=== PATIENT | female | born 1980 | race Caucasian/White ===

== ENCOUNTER → 2017-05-29 | Outpatient (CLI) | payer OTHER ==
[~2017-05-29] MED LIST: ACHD5005 PO; CEPH-38 PO; CETI10CA PO; CPH500CIP; CYCL10TA9 PO; DOCU-143 PO; HYDR-3454 PO; HYDR-3583 PO; HYDR1TAB PO; HYDR1TAB8 OP; IBUP-30 PO; IBUP-65; IBUP200C75 PO; LEVO5TAB2 PO; METR500T PO; ONDA-42 SL; OXYC-12 PO; OXYC-281; PANT40TA2 PO; POTA20TA7 PO; PRM25T PO; SUCR1TAB36 PO; SULF1TAB38 PO
--- NOTE | 2017-05-29 15:39 | Diagnostic Imaging Report ---
INDICATION: scar with rash. Patient opted for transvaginal imaging only. FINDINGS: The uterus is absent. The right ovary measures 2.6 x 2.2 x 2.2 cm. The left ovary measures 3.0 x 2.8 x 2.1 cm. There are multiple small follicular cysts throughout both ovaries. There is a complex cyst in the left ovary with thick wall measuring 1.2 cm which likely represents involuting hemorrhagic cyst. There is normal blood flow to both ovaries. There is no free fluid. IMPRESSION: 1. Probable involuting cyst within the left ovary measuring 1.2 cm, as described. No other abnormalities noted. Dictated by: Dictated on workstation # [id number]
== END ==
LOC: RAD 14:01
PROVIDERS: ATTEND Family Medicine
DX: N83.292 Other ovarian cyst, left side (principal)
CPT/HCPCS: 76830

== ENCOUNTER 2019-01-13 21:18 | Emergency (ER) | payer MEDICAID, OTHER ==
[~2019-01-13] VITALS: Ht 152.4 cm; Wt 87.1 kg
[~2019-01-13 21:18] MED LIST changes: +IBUP-2185 PO; -IBUP200C75 PO
--- OUTSIDE RECORDS SUMMARY | 2019-01-13 21:46 | XMS REPORT ---
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 88188044 Problem Elevated lymphocytes D72.820 Active 95665047 Problem Prediabetes R73.03 Active 151002527 Problem Chronic reflux esophagitis K21.0 Active 628951005 Problem Chronic fatigue R53.82 Active 90792897 Problem BMI 35.0-35.9,adult Z68.35 Active 522189296 Problem Major depressive disorder, recurrent episode, moderate F33.1 Active 155626550 Problem Seasonal allergic rhinitis due to pollen J30.1 Active 34664976 Problem WILMA (generalized anxiety disorder) F41.1 Active 07929436 Problem Severe episode of recurrent major depressive disorder, without 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 Active 83034195 Problem Carpal tunnel syndrome of right wrist G56.01 Active 14795279 Problem PTSD (post-traumatic stress disorder) F43.10 Active 18729580 ALLERGIES No Information ENCOUNTERS Encounter Location Date Diagnosis [facility] [id number] [place] [address] 76774- 4464 Nov, [facility] [address] [address] Sep, [facility] [id number] [place] [address] 65948- 3045 Aug, [facility] [id number] [place] [address] 61244- 6954 Aug, [facility] [id number] [place] [address] 26082- 9716 Aug, [place] [address] [address] Aug, Severe episode of recurrent major depressive disorder, without 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 ; WILMA (generalized anxiety disorder) F41.1 and PTSD (post-traumatic stress disorder) F43.10 [facility] [address] [address] Jul, Severe episode of recurrent major depressive disorder, without 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 ; WILMA (generalized anxiety disorder) F41.1 and PTSD (post-traumatic stress disorder) F43.10 [facility] [facility] [id number] [place] [address] 80273- 4736 Jun, [place] [id number] [place] [address] 70712- 6632 Jun, Severe episode of recurrent major depressive disorder, without 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 ; WILMA (generalized anxiety disorder) F41.1 and PTSD (post-traumatic stress disorder) F43.10 [place] [id number] [place] [address] 28459- 1146 Jun, Encounter to establish care Z76.89 ; Diarrhea, unspecified type R19.7 ; Carpal tunnel syndrome of right wrist G56.01 ; Tobacco use Z72.0 ; Major depressive disorder, recurrent episode, moderate F33.1 and Seasonal allergic rhinitis due to pollen J30.1 [facility] [id number] [place] [address] 44837- 7351 Jun, Severe episode of recurrent major depressive disorder, without 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 ; WILMA (generalized anxiety disorder) F41.1 and PTSD (post-traumatic stress disorder) F43.10 [facility] [id number] [place] [address] 12467- 3871 May, Severe episode of recurrent major depressive disorder, without 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 ; WILMA (generalized anxiety disorder) F41.1 and PTSD (post-traumatic stress disorder) F43.10 [facility] [id number] [place] [address] 37608- 8319 May, Scalp cyst L72.9 [facility] [id number] [place] [address] 68089- 7781 May, Severe episode of recurrent major depressive disorder, without 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 ; WILMA (generalized anxiety disorder) F41.1 and PTSD (post-traumatic stress disorder) F43.10 [facility] [id number] [place] [address] 60003- 0767 Apr, Severe episode of recurrent major depressive disorder, without 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 ; WILMA (generalized anxiety disorder) F41.1 and PTSD (post-traumatic stress disorder) F43.10 [facility] [id number] [place] [address] 42569- 3876 March, Severe episode of recurrent major depressive disorder, without 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 ; WILMA (generalized anxiety disorder) F41.1 and PTSD (post-traumatic stress disorder) F43.10 [facility] [id number] [place] [address] 94147- 2965 March, Severe episode of recurrent major depressive disorder, without 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 ; WILMA (generalized anxiety disorder) F41.1 and PTSD (post-traumatic stress disorder) F43.10 [facility] [id number] [place] [address] 57977- 0948 March, [place] [id number] [place] [address] 93411- 2976 Jan, Severe episode of recurrent major depressive disorder, without 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 ; WILMA (generalized anxiety disorder) F41.1 and PTSD (post-traumatic stress disorder) F43.10 [place] [id number] [place] [address] 82002- 4784 Jan, Carpal tunnel syndrome of right wrist G56.01 [place] [id number] [place] [address] 75428- 6735 Jan, Severe episode of recurrent major depressive disorder, without 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 ; WILMA (generalized anxiety disorder) F41.1 and PTSD (post-traumatic stress disorder) F43.10 [facility] [id number] [place] [address] 92022- 7961 Dec, Severe episode of recurrent major depressive disorder, without 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 ; WILMA (generalized anxiety disorder) F41.1 and PTSD (post-traumatic stress disorder) F43.10 [place] [address] 17830- 3979 Dec, Severe episode of recurrent major depressive disorder, without 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 ; WILMA (generalized anxiety disorder) F41.1 and PTSD (post-traumatic stress disorder) F43.10 [facility] [id number] [place] [address] 83694- 4210 Dec, Severe episode of recurrent major depressive disorder, without 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 ; WILMA (generalized anxiety disorder) F41.1 and PTSD (post-traumatic stress disorder) F43.10 [place] [id number] [place] [address] 72335- 2726 Dec, Severe episode of recurrent major depressive disorder, without 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 [facility] [id number] [place] [id number] Dec, Severe episode of recurrent major depressive disorder, without 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 ; WILMA (generalized anxiety disorder) F41.1 and PTSD (post-traumatic stress disorder) F43.10 [facility] [id number] [place] [address] 42443- 4659 Dec, Severe episode of recurrent major depressive disorder, without 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 ; WILMA (generalized anxiety disorder) F41.1 and PTSD (post-traumatic stress disorder) F43.10 [place] [id number] [place] [address] 87721- 9219 Dec, Severe episode of recurrent major depressive disorder, without 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 and Anxiety state, unspecified F41.1 [facility] [address] [place] [address]- 3115 14 Dec, 2017 Severe episode of recurrent major depressive disorder, without 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 and Anxiety state, unspecified F41.1 [facility] [facility] [id number] [place] [address] [address] Nov, Depression, major, recurrent, moderate F33.1 and Anxiety state, unspecified F41.1 [place] [address] 07459- 9642 Nov, Depression, major, recurrent, moderate F33.1 and Anxiety state, unspecified F41.1 [facility] [address] 262387- 6832 Oct, Depression, major, recurrent, moderate F33.1 and Anxiety state, unspecified F41.1 [place] [address] 24913- 6114 Oct, Depression, major, recurrent, moderate F33.1 and Post- cholecystectomy syndrome K91.5 [place] [id number] [place] [address] 91101- 4389 Oct, Depression, major, recurrent, moderate F33.1 and Anxiety state, unspecified F41.1 [facility] [id number] [place] [address] 56006- 4344 30 Sep, 2017 Depression, major, recurrent, moderate F33.1 and Anxiety state, unspecified F41.1 [place] [id number] [place] [address] 74319- 3261 Sep, Depression, major, recurrent, moderate F33.1 and Anxiety state, unspecified F41.1 [place] [address] 20894- 6934 09 Sep, 2017 Depression, major, recurrent, moderate F33.1 and Anxiety state, unspecified F41.1 [place] [address] 45776- 3760 Sep, Diarrhea, unspecified type R19.7 [place] [id number] [place] [address] 93584- 1657 Aug, Depression, major, recurrent, moderate F33.1 and Anxiety state, unspecified F41.1 [place] [id number] [place] [address] Aug, Depression, major, recurrent, moderate F33.1 and Anxiety state, unspecified F41.1 [place] [id number] [place] [address] 4771 Jul, Depression, major, recurrent, moderate F33.1 and Anxiety state, unspecified F41.1 [place] [id number] [place] [address]557 Jun, Depression, major, recurrent, moderate F33.1 and Anxiety state, unspecified F41.1 [place] [address] 38820- 2582 Jun, Generalized abdominal pain R10.84 ; Diarrhea, unspecified type R19.7 ; Acute cystitis without hematuria N30.00 ; Abdominal bloating R14.0 and Elevated blood pressure reading R03.0 [place] [id number] [place] [address] 28659- 7577 Jun, Depression, major, recurrent, moderate F33.1 and Anxiety state, unspecified F41.1 [place] [id number] [place] [address] 6428 May, Depression, major, recurrent, moderate F33.1 and Anxiety state, unspecified F41.1 [place] [id number] [place] [address] 44467- 5277 May, Elevated lymphocytes D72.820 [place] [id number] [place] [address] 64597- 5513 May, Elevated lymphocytes D72.820 [place] [id number] [place] [address] 2546 May, BMI 35.0-35.9,adult Z68.35 ; Other fatigue R53.83 ; Pelvic pain R10.2 ; Tobacco use Z72.0 and Chronic reflux esophagitis K21.0 [place] [id number] [place] [address] 66695- 4096 Apr, [place] [id number] [place] [address] 15515- 5647 Apr, Depression, major, recurrent, moderate F33.1 and Anxiety state, unspecified F41.1 [place] [id number] [place] [address] 52994- 6838 Apr, Depression, major, recurrent, moderate F33.1 and Anxiety state, unspecified F41.1 [place] [id number] [place] [address] 41277- 2132 Apr, [place] [id number] [place] [address] 46945- 9238 March, Major depressive disorder, recurrent episode, mild F33.0 and Anxiety state, unspecified F41.1 [facility] [id number] [place] [address] 46550 -6113 March, Sore throat J02.9 and Submandibular lymphadenopathy R59.0 [place] [id number] [place] [address] 25612- 3558 Dec, Major depressive disorder, recurrent episode, mild F33.0 and Anxiety state, unspecified F41.1 [place] [id number] [place] [address] 04801- 1217 Dec, Major depressive disorder, recurrent episode, mild F33.0 and Anxiety state, unspecified F41.1 [place] [id number] [place] [address] 06400- 5434 Dec, Major depressive disorder, recurrent episode, mild F33.0 and Anxiety state, unspecified F41.1 [facility] [address] [address]- 9982 Sep, Major depressive disorder, recurrent episode, mild F33.0 and Anxiety state, unspecified F41.1 [place] [id number] [place] [address] 26968- 2227 Sep, Major depressive disorder, recurrent episode, moderate F33.1 and Anxiety state, unspecified F41.1 [place] [id number] [place] [address] 09299- 9213 Aug, Major depressive disorder, recurrent episode, moderate F33.1 and Anxiety state, unspecified F41.1 [place] [id number] [place] [address] 71951- 6682 Aug, Major depressive disorder, recurrent episode, moderate F33.1 and Anxiety state, unspecified F41.1 [place] [id number] [place] [address] 39487- 1323 Jul, Major depressive disorder, recurrent episode, moderate F33.1 and Anxiety state, unspecified F41.1 [place] [id number] [place] [address] 14134- 7714 Jul, Major depressive disorder, recurrent episode, moderate F33.1 and Anxiety state, unspecified F41.1 [place] [id number] [place] [address] 51271- 8592 Jun, Major depressive disorder, recurrent episode, moderate F33.1 and Anxiety state, unspecified F41.1 [place] [id number] [place] [address] 55132- 4509 Jun, Major depressive disorder, recurrent episode, moderate F33.1 and Anxiety state, unspecified F41.1 [place] [id number] [place] [address] 47705- 3630 May, Major depressive disorder, recurrent episode, moderate F33.1 and Anxiety state, unspecified F41.1 [place] [id number] [place] [address] 34429- 5698 Apr, Major depressive disorder, recurrent episode, moderate F33.1 and Anxiety state, unspecified F41.1 [place] [id number] [place] [address] 427366- 2200 Apr, Major depressive disorder, recurrent episode, moderate F33.1 and Anxiety state, unspecified F41.1 [place] [id number] [place] [address] 37339- 5275 Dec, Major depressive disorder, recurrent episode, moderate F33.1 and Anxiety state, unspecified F41.1 [place] [id number] [place] [address] 81371- 2421 Dec, Major depressive disorder, recurrent episode, moderate F33.1 and Anxiety state, unspecified F41.1 [facility] [id number] [place] [address] 77729 -7859 Dec, Pharyngitis J02.9 and Acute frontal sinusitis J01.10 [place] [id number] [place] [address] 61785- 9895 Nov, Bilateral occipital neuralgia M54.81 and Neck muscle spasm M62.838 [place] [id number] [place] [address] 07034- 6078 Nov, Major depressive disorder, recurrent episode, moderate F33.1 and Anxiety state, unspecified F41.1 [place] [id number] [place] [address] 79935- 9053 Sep, Major depressive disorder, recurrent episode, moderate F33.1 and Anxiety state, unspecified F41.1 [place] [id number] [place] [address] 29195- 2856 Aug, Major depressive disorder, recurrent episode, moderate F33.1 and Anxiety state, unspecified F41.1 [place] [id number] [place] [address] 60140- 7630 Jul, Abdominal pain 789.00 ; Hematochezia 578.1 and Weight loss 783.21 [facility] [address], [place] [address]- 5234 May, [facility] [address] [address]- 3036 March, [facility] [address], [place] [address]- 8230 March, [facility] [address] [facility] [id number] [place] [address] 62209- 3677 Jan, [facility] [id number] [address]- 4851 Jan, [facility] [id number] [place] [address] 26377- 9959 Dec, [facility] [address] [address]- 2701 Dec, [facility] [address], [place] [address]- 3432 Dec, 2014 [facility] [address] [address]- 6157 Dec, 2014 [facility] [address], [place] [address]- 7381 Dec, 2014 [facility] [address] [address]- 6417 Dec, 2014 [facility] [id number] [address]- 2031 Jul, [facility] [place] [facility] [address], [place] [address]- 1056 Jul, [facility] [place] [facility] [address], [place] [address]- 7276 Jul, [facility] [address], [place] [address]- 5399 Jul, [facility] [place] [facility] [address] [id number] [place] [address]- 2546 10 Jul, 2013 [facility] [place] [facility] [address] [id number] [place] [address] 2546 Jul, 2013 [facility] [place] [facility] [address] [id number] [place] [address] 2546 Jul, 2013 [facility] [place] [facility] [address] [id number] [place] [address] 2546 Jul, 2013 [facility] [place] [facility] [address] [id number] [place] [address] 2540 Jul, 2013 [facility] [place] [facility] [address] [id number] [place] [address]- 2967 Jul, 2013 [facility] [place] [facility] [address] [id number] [place] [address]- 4278 Jul, 2013 [facility] [place] [facility] [address] [id number] [place] [address]- 9562 Jul, 2013 [facility] [place] [facility] [address] [id number] [place] [address]- 9455 May, [facility] [place] [facility] [address] [id number] [place] [address]- 2336 May, [facility] [place] [facility] [address] [id number] [place] [address]- 1434 Apr, [facility] [place] [facility] [address] [id number] [place] [address]- 1807 Apr, [facility] [place] [facility] [address] [id number] [place] [address]- 7710 Apr, [facility] [place] [facility] [address] [id number] [place] [address]- 2546 Apr, [facility] [place] [facility] [address] [id number] [place] [address]- 9395 March, [facility] [place] [facility] [address] [id number] [place] [address]- 6656 March, [facility] [place] [facility] [address] [id number] [place] [address]- 4161 Jan, [facility] [place] [facility] [address] [id number] [place] [address]- 5083 Jan, [facility] [place] [facility] [address] [id number] [place] [address]- 2439 Jan, [facility] [place] [facility] [address] [id number] [place] [address]- 7534 Jan, [facility] [place] [facility] [address] [id number] [place] [address]- 0851 Dec, [facility] [place] [facility] [address] [id number] [place] [address]- 9543 25 Dec, 2013 [facility] [place] [facility] [address] [id number] [place] [address]- 3813 18 Dec, 2013 [facility] [place] [facility] [address] [id number] [place] [address]- 9377 18 Dec, 2013 [facility] [place] [facility] [address] [id number] [place] [address]- 4433 15 Dec, 2013 [facility] [place] [facility] [address] [id number] [place] [address]- 0616 14 Dec, 2013 [facility] [place] [facility] [address] [id number] [place] [address]- 8308 13 Dec, 2013 [facility] [place] [facility] [address] [id number] [address]- 9002 13 Dec, 2013 [facility] [place] [facility] [address] [id number] [place] [address]- 8439 12 Dec, 2013 [facility] [place] [facility] [address] [id number] [place] [address]- 1657 12 Dec, 2013 [facility] [place] [facility] [address] [id number] [place] [address]- 6329 05 Dec, 2013 [facility] [place] [facility] [address] [id number] [place] [address]- 3002 Dec, [facility] [place] [facility] [address] [id number] [place] [address]- 8136 Dec, [facility] [place] [facility] [address] [id number] [place] [address]- 0356 Dec, [facility] [place] [facility] [address] [id number] [place] [address]- 6556 Dec, [facility] [place] [facility] [address] [id number] [place] [address]- 6006 Dec, [facility] [place] [facility] [address] [id number] [place] [address]- 1536 Dec, [facility] [place] [facility] [address] [id number] [place] [address]- 4076 Dec, [facility] [place] [facility] [address] [id number] [place] [address]- 3494 Nov, [facility] [place] [facility] [address] [id number] [place] [address]- 5569 Nov, [facility] [place] [facility] [address] [id number] [place] [address]- 2417 Nov, [facility] [place] [facility] [address] [id number] [place] [address]- 0717 Nov, [facility] [place] [facility] [address] [id number] [place] [address]- 0887 Nov, [facility] [place] [facility] [address] [id number] [place] [address]- 1602 Nov, [facility] [place] [facility] [address] [id number] [place] [address]- 1255 Nov, [facility] [place] [facility] [address] [id number] [place] [address] 2546 Nov, [facility] [place] [facility] [address] [id number] [place] [address]- 1289 Oct, [facility] [place] [facility] [address] [id number] [place] [address]- 1012 Oct, [facility] [place] [facility] [address] [id number] [place] [address]- 6340 Oct, [facility] [place] [facility] [address] [id number] [place] [address]- 9004 Oct, [facility] [place] [facility] [address] [id number] [place] [address]- 5968 Oct, [facility] [place] [facility] [address] [id number] [place] [address]- 1205 Oct, [facility] [place] [facility] [address] [id number] [place] [address]- 6159 Sep, [facility] [place] [facility] [address] [id number] [place] [address]- 1261 Sep, [facility] [place] [facility] [address] [id number], [place] [address]- 8994 Sep, [facility] [place] [facility] [address] [id number] [place] [address]- 9744 Sep, [facility] [place] [facility] [address] [id number], [place] [address]- 7774 Aug, [facility] [place] [facility] [address] [id number], [place] [address]- 4247 Aug, [facility] [place] [facility] [address] [id number], [place] [address]- 5169 Aug, [facility] [place] [facility] [address] [id number] [place] [address]- 2264 Aug, [facility] [place] [facility] [address] [id number], [place] [address] Jul, [facility] [place] [facility] [address] [id number], [place] [address] 05 Jul, 2013 [facility] [place] [facility] [address] [id number] [place] [address] Jun, [facility] [address] [id number] [place] [address] Jun, [facility] [address] [id number] [place] [address] Apr, [facility] [address] [id number] [place] [address] Apr, [facility] [address] [id number] [place] [address] 15 Apr, 2013 [facility] [address] [id number] [place] [address] 14 Apr, 2013 [facility] [address] [id number] [place] [address] March, [facility] [address] [id number] [place] [address] March, [facility] [address] [id number] [place] [address] March, [facility] [address] [id number] [place] [address] Jan, [facility] [address] [id number] [place] [address] Jan, [facility] [address] [id number] [place] [address] Dec, [facility] [place] [facility] [address] [id number] [place] [address] Dec, [facility] [place] [facility] [address] [id number] [place] [address] Dec, [facility] [facility] [address] [id number] [place] [address] 28 Dec, 2012 [facility] [place] [facility] [address] [id number] [place] [address] Dec, [facility] [place] [facility] [address] [id number] [place] [address] Dec, [facility] [address] [id number] [place] [address] Nov, [facility] [address] [id number] [place] [address] Nov, [facility] [address] [id number] [place] [address] Oct, [facility] [address] [id number] [place] [address] Oct, [facility] [address] [id number] [place] [address] Oct, [facility] [address] [id number] [place] [address] Oct, [facility] [address] [id number] [place] [address] Oct, [facility] [address] [id number] [place] [address] Oct, [facility] [address] [id number] [place] [address] Oct, [facility] [address] [id number] [place] [address] Oct, [facility] [address] [id number] [place] [address] Oct, [facility] [address] [id number] [place] [address] Oct, [facility] [address] [id number] [place] [address] Sep, [facility] [address] [id number] [place] [address] Sep, [facility] [facility] [address] [id number] [place] [address] Sep, [facility] [address] [id number] [place] [address] Sep, [facility] [address] [id number] [place] [address] Aug, [facility] [facility] [address] [id number] [place] [address] Aug, [facility] [address] [id number] [place] [address] Aug, [facility] [address] [id number] [place] [address] Jul, [facility] [place] [facility] [address] [id number] [place] [address] Jun, [facility] [facility] [address] [id number] [place] [address] Jun, [facility] [address] [id number] [place] [address] May, [facility] [facility] [address] [id number] [place] [address] Apr, [facility] [address] [id number] [place] [address] March, [facility] [facility] [address] [id number] [place] [address] Jan, [facility] [facility] [address] [id number] [place] [address] Dec, [facility] [facility] [address] [id number] [place] [address] Dec, [facility] [address] [id number] [place] [address] Nov, [facility] [address] [id number] [place] [address] Oct, [facility] [address] [facility] [id number], [place] [address] Oct, [facility] [address] [facility] [id number], [place] [address] Sep, [facility] [address] [facility] [id number], [place] [address] Aug, [facility] [address] [facility] [id number], [place] [address] Dec, [facility] [address] [facility] [id number], [place] [address] Oct, [facility] [address] [facility] [id number], [place] [address] Oct, [facility] [address] [facility] [id number], [place] [address] Oct, [facility] [id number], [place] [address] Jun, [facility] [address] [id number], [place] [address] Jun, [facility] [id number], [place] [address] Oct, [facility] [id number] [address] [address] Sep, [facility] [id number] [address] [address] Sep, [facility] [address] [id number], [place] [address] Sep, [facility] [id number], [place] [address] Aug, [facility] [address] [id number], [place] [address] 10 Dec, 2008 IMMUNIZATIONS No Known Immunizations SOCIAL HISTORY Never Assessed REASON FOR VISIT Update Demographics - Personal Info PLAN OF CARE VITAL SIGNS MEDICATIONS Unknown Medications RESULTS No Results PROCEDURES No Known procedures INSTRUCTIONS MEDICATIONS ADMINISTERED No Known Medications MEDICAL (GENERAL) HISTORY Type Description Date Medical History GERD Medical History anxiety Medical History depression Medical History Hx of dumping . Resolved with Wellchol Surgical History C- section x 2 Surgical History tubal ligation Surgical History hysterectomy partial. Hyst due to uncontrolled bleeding 2008 Surgical History cholecystectomy 2013 Surgical History Fibroid removal Hospitalization History inpatient treatment Mirtha SMITH 21 years old Hospitalization History surgeries
--- OUTSIDE RECORDS SUMMARY | 2019-01-13 21:46 | XMS REPORT ---
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 29601008 Problem Elevated lymphocytes D72.820 Active 19924740 Problem Prediabetes R73.03 Active 793510349 Problem Chronic reflux esophagitis K21.0 Active 301529773 Problem Chronic fatigue R53.82 Active 21571473 Problem BMI 35.0-35.9,adult Z68.35 Active 001626740 Problem Major depressive disorder, recurrent episode, moderate F33.1 Active 737778831 Problem Seasonal allergic rhinitis due to pollen J30.1 Active 15728529 Problem WILMA (generalized anxiety disorder) F41.1 Active 18159882 Problem Severe episode of recurrent major depressive disorder, without 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 Active 55609300 Problem Carpal tunnel syndrome of right wrist G56.01 Active 59517219 Problem PTSD (post-traumatic stress disorder) F43.10 Active 77320738 ALLERGIES No Information ENCOUNTERS Encounter Location Date Diagnosis [facility] [id number] [place] [address] 05417- 2475 Nov, [facility] [address], [place] [address] 77[address] Sep, [facility] [id number] [place] [address] 17102- 4124 Aug, [facility] [id number] [place] [address] 18743- 2641 Aug, [facility] [id number] [place] [address] 44448- 1945 Aug, [facility] [address] [address]67 Aug, Severe episode of recurrent major depressive disorder, without 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 ; WILMA (generalized anxiety disorder) F41.1 and PTSD (post-traumatic stress disorder) F43.10 [facility] [address], [place] [address] 288[address] Jul, Severe episode of recurrent major depressive disorder, without 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 ; WILMA (generalized anxiety disorder) F41.1 and PTSD (post-traumatic stress disorder) F43.10 [facility] [id number] [place] [address] 48048- 8558 Jun, [facility] [id number] [place] [address] 13604- 7991 Jun, Severe episode of recurrent major depressive disorder, without 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 ; WILMA (generalized anxiety disorder) F41.1 and PTSD (post-traumatic stress disorder) F43.10 [facility] [id number] [place] [address] 96699- 5857 Jun, Encounter to establish care Z76.89 ; Diarrhea, unspecified type R19.7 ; Carpal tunnel syndrome of right wrist G56.01 ; Tobacco use Z72.0 ; Major depressive disorder, recurrent episode, moderate F33.1 and Seasonal allergic rhinitis due to pollen J30.1 [facility] [id number] [place] [address] 95195- 9869 Jun, Severe episode of recurrent major depressive disorder, without 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 ; WILMA (generalized anxiety disorder) F41.1 and PTSD (post-traumatic stress disorder) F43.10 [facility] [id number] [place] [address] 46293- 0153 May, Severe episode of recurrent major depressive disorder, without 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 ; WILMA (generalized anxiety disorder) F41.1 and PTSD (post-traumatic stress disorder) F43.10 [facility] [id number] [place] [address] 00872- 2019 May, Scalp cyst L72.9 [facility] [id number] [place] [address] 23151- 7129 May, Severe episode of recurrent major depressive disorder, without 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 ; WILMA (generalized anxiety disorder) F41.1 and PTSD (post-traumatic stress disorder) F43.10 [facility] [id number] [place] [address] 68823- 6054 Apr, Severe episode of recurrent major depressive disorder, without 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 ; WILMA (generalized anxiety disorder) F41.1 and PTSD (post-traumatic stress disorder) F43.10 [facility] [id number] [place] [address] 22368- 9223 March, Severe episode of recurrent major depressive disorder, without 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 ; WILMA (generalized anxiety disorder) F41.1 and PTSD (post-traumatic stress disorder) F43.10 [facility] [id number] [place] [address] 67159- 3872 March, Severe episode of recurrent major depressive disorder, without 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 ; WILMA (generalized anxiety disorder) F41.1 and PTSD (post-traumatic stress disorder) F43.10 [facility] [id number] [place] [address] 75927- 1894 March, [facility] [id number] [place] [address] 41384- 6400 Jan, Severe episode of recurrent major depressive disorder, without 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 ; WILMA (generalized anxiety disorder) F41.1 and PTSD (post-traumatic stress disorder) F43.10 [facility] [id number] [place] [address] 77256- 5399 Jan, Carpal tunnel syndrome of right wrist G56.01 [facility] [id number] [place] [address] 69515- 7419 Jan, Severe episode of recurrent major depressive disorder, without 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 ; WILMA (generalized anxiety disorder) F41.1 and PTSD (post-traumatic stress disorder) F43.10 [facility] [id number] [place] [address] 44182- 5414 Dec, Severe episode of recurrent major depressive disorder, without 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 ; WILMA (generalized anxiety disorder) F41.1 and PTSD (post-traumatic stress disorder) F43.10 [facility] [address] 09447- 7272 Dec, Severe episode of recurrent major depressive disorder, without 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 ; WILMA (generalized anxiety disorder) F41.1 and PTSD (post-traumatic stress disorder) F43.10 [facility] [id number] [place] [address] 05942- 9394 Dec, Severe episode of recurrent major depressive disorder, without 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 ; WILMA (generalized anxiety disorder) F41.1 and PTSD (post-traumatic stress disorder) F43.10 [facility] [id number] [place] [address] 74990- 7397 Dec, Severe episode of recurrent major depressive disorder, without 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 [facility] [id number] [place] [address] 4778 Dec, Severe episode of recurrent major depressive disorder, without 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 ; WILMA (generalized anxiety disorder) F41.1 and PTSD (post-traumatic stress disorder) F43.10 [facility] [id number] [place] [address] 99258- 1191 Dec, Severe episode of recurrent major depressive disorder, without 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 ; WILMA (generalized anxiety disorder) F41.1 and PTSD (post-traumatic stress disorder) F43.10 [facility] [id number] [place] [address] 65483- 7932 Dec, Severe episode of recurrent major depressive disorder, without 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 and Anxiety state, unspecified F41.1 [facility] [address] [place] [address]- 2344 14 Dec, 2017 Severe episode of recurrent major depressive disorder, without 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 and Anxiety state, unspecified F41.1 [facility] [id number] [place] [address] Nov, Depression, major, recurrent, moderate F33.1 and Anxiety state, unspecified F41.1 [facility] [address] 11311- 3031 Nov, Depression, major, recurrent, moderate F33.1 and Anxiety state, unspecified F41.1 [facility] [address] 059842- 2551 Oct, Depression, major, recurrent, moderate F33.1 and Anxiety state, unspecified F41.1 [facility] [address] 36310- 0858 Oct, Depression, major, recurrent, moderate F33.1 and Post- cholecystectomy syndrome K91.5 [facility] [id number] [place] [address] 96171- 7750 Oct, Depression, major, recurrent, moderate F33.1 and Anxiety state, unspecified F41.1 [facility] [id number] [place] [address] 19501- 8225 30 Sep, 2017 Depression, major, recurrent, moderate F33.1 and Anxiety state, unspecified F41.1 [facility] [id number] [place] [address] 93427- 0254 Sep, Depression, major, recurrent, moderate F33.1 and Anxiety state, unspecified F41.1 [facility] [address] 96749- 4299 09 Sep, 2017 Depression, major, recurrent, moderate F33.1 and Anxiety state, unspecified F41.1 [facility] [address] 30345- 1744 Sep, Diarrhea, unspecified type R19.7 [facility] [id number] [place] [address] 92468- 1375 Aug, Depression, major, recurrent, moderate F33.1 and Anxiety state, unspecified F41.1 [facility] [id number] [place] [address]- 1733 Aug, Depression, major, recurrent, moderate F33.1 and Anxiety state, unspecified F41.1 [facility] [id number] [place] [address] 6343 Jul, Depression, major, recurrent, moderate F33.1 and Anxiety state, unspecified F41.1 [facility] [id number] [place] [address] 3075 Jun, Depression, major, recurrent, moderate F33.1 and Anxiety state, unspecified F41.1 [facility] [address] 31708- 1519 Jun, Generalized abdominal pain R10.84 ; Diarrhea, unspecified type R19.7 ; Acute cystitis without hematuria N30.00 ; Abdominal bloating R14.0 and Elevated blood pressure reading R03.0 [facility] [id number] [place] [address] 92103- 7322 Jun, Depression, major, recurrent, moderate F33.1 and Anxiety state, unspecified F41.1 [facility] [id number] [place] [address]- 1619 May, Depression, major, recurrent, moderate F33.1 and Anxiety state, unspecified F41.1 [facility] [id number] [place] [address] 78486- 3455 May, Elevated lymphocytes D72.820 [facility] [id number] [place] [address] 30681- 2572 May, Elevated lymphocytes D72.820 [facility] [id number] [place] [address]- 2546 May, BMI 35.0-35.9,adult Z68.35 ; Other fatigue R53.83 ; Pelvic pain R10.2 ; Tobacco use Z72.0 and Chronic reflux esophagitis K21.0 [facility] [address] [place] [address] 96561- 3392 Apr, [facility] [id number] [place] [address] 62200- 7361 Apr, Depression, major, recurrent, moderate F33.1 and Anxiety state, unspecified F41.1 [facility] [id number] [place] [address] 50083- 1630 Apr, Depression, major, recurrent, moderate F33.1 and Anxiety state, unspecified F41.1 [facility] [id number] [place] [address] 59886- 2724 Apr, [facility] [id number] [place] [address] 07998- 2659 March, Major depressive disorder, recurrent episode, mild F33.0 and Anxiety state, unspecified F41.1 [facility] [id number] [place] [address] 91955 -2827 March, Sore throat J02.9 and Submandibular lymphadenopathy R59.0 [facility] [id number] [place] [address] 31552- 4247 Dec, Major depressive disorder, recurrent episode, mild F33.0 and Anxiety state, unspecified F41.1 [facility] [address] [place] [address] 98374- 4728 Dec, Major depressive disorder, recurrent episode, mild F33.0 and Anxiety state, unspecified F41.1 [facility] [id number] [place] [address] 02288- 6665 Dec, Major depressive disorder, recurrent episode, mild F33.0 and Anxiety state, unspecified F41.1 [facility] [address], [place] [address]- 8695 Sep, Major depressive disorder, recurrent episode, mild F33.0 and Anxiety state, unspecified F41.1 [facility] [address] [place] [address] 08679- 0217 Sep, Major depressive disorder, recurrent episode, moderate F33.1 and Anxiety state, unspecified F41.1 [facility] [id number] [place] [address] 77824- 7360 Aug, Major depressive disorder, recurrent episode, moderate F33.1 and Anxiety state, unspecified F41.1 [facility] [id number] [place] [address] 24794- 6699 Aug, Major depressive disorder, recurrent episode, moderate F33.1 and Anxiety state, unspecified F41.1 [facility] [id number] [place] [address] 70737- 0474 Jul, Major depressive disorder, recurrent episode, moderate F33.1 and Anxiety state, unspecified F41.1 [facility] [id number] [place] [address] 77336- 6670 Jul, Major depressive disorder, recurrent episode, moderate F33.1 and Anxiety state, unspecified F41.1 [facility] [address] [place] [address] 11766- 8147 Jun, Major depressive disorder, recurrent episode, moderate F33.1 and Anxiety state, unspecified F41.1 [facility] [address] [place] [address] 85060- 4549 Jun, Major depressive disorder, recurrent episode, moderate F33.1 and Anxiety state, unspecified F41.1 [facility] [address] [place] [address] 75616- 0948 May, Major depressive disorder, recurrent episode, moderate F33.1 and Anxiety state, unspecified F41.1 [facility] [id number] [place] [address] 48656- 0412 Apr, Major depressive disorder, recurrent episode, moderate F33.1 and Anxiety state, unspecified F41.1 [facility] [id number] [place] [address] 348934- 2871 Apr, Major depressive disorder, recurrent episode, moderate F33.1 and Anxiety state, unspecified F41.1 [facility] [id number] [place] [address] 68660- 7310 Dec, Major depressive disorder, recurrent episode, moderate F33.1 and Anxiety state, unspecified F41.1 [facility] [id number] [place] [address] 86138- 5239 Dec, Major depressive disorder, recurrent episode, moderate F33.1 and Anxiety state, unspecified F41.1 [facility] [id number] [place] [address] 31508 -8887 Dec, Pharyngitis J02.9 and Acute frontal sinusitis J01.10 [facility] [id number] [place] [address] 95148- 9589 Nov, Bilateral occipital neuralgia M54.81 and Neck muscle spasm M62.838 [facility] [id number] [place] [address] 85226- 9761 Nov, Major depressive disorder, recurrent episode, moderate F33.1 and Anxiety state, unspecified F41.1 [facility] [id number] [place] [address] 93485- 4541 Sep, Major depressive disorder, recurrent episode, moderate F33.1 and Anxiety state, unspecified F41.1 [facility] [id number] [place] [address] 53311- 8445 Aug, Major depressive disorder, recurrent episode, moderate F33.1 and Anxiety state, unspecified F41.1 [facility] [id number] [place] [address] 81533- 6074 Jul, Abdominal pain 789.00 ; Hematochezia 578.1 and Weight loss 783.21 [facility] [address], [place] [address]- 5813 May, [facility] [address], [place] [address]- 0059 March, [facility] [address], [place] [address]- 0719 March, [facility] [address] [facility] [id number] [place] [address] 67157- 1493 Jan, [facility] [id number] [address]- 9707 Jan, [facility] [address] [place] [address] 77253- 0741 Dec, [facility] [address], [place] [address]- 2533 Dec, [facility] [address], [place] [address]- 4052 Dec, 2014 [facility] [address], [place] [address]- 8659 Dec, 2014 [facility] [address], [place] [address]- 0344 Dec, 2014 [facility] [address], [place] [address]- 1059 Dec, 2014 [facility] [id number], [place] [address]- 7019 Jul, [facility] [place] [facility] [address], [place] [address]- 0414 Jul, [facility] [place] [facility] [address], [place] [address]- 1149 Jul, [facility] [address], [place] [address]- 8437 Jul, [facility] [place] [facility] [address] [id number] [place] [address]- 2546 10 Jul, 2013 [facility] [place] [facility] [address] [id number] [place] [address] 2546 Jul, 2013 [facility] [place] [facility] [address] [id number] [place] [address] 2546 Jul, 2013 [facility] [place] [facility] [address] [id number] [place] [address] 2546 Jul, 2013 [facility] [place] [facility] [address] [id number] [place] [address] 2545 Jul, 2013 [facility] [place] [facility] [address] [id number] [place] [address]- 3024 Jul, 2013 [facility] [place] [facility] [address] [id number] [place] [address]- 7954 Jul, 2013 [facility] [place] [facility] [address] [id number] [place] [address]- 6532 Jul, 2013 [facility] [place] [facility] [address] [id number] [place] [address]- 2772 May, [facility] [place] [facility] [address] [id number] [place] [address]- 8411 May, [facility] [place] [facility] [address] [id number] [place] [address]- 2215 Apr, [facility] [place] [facility] [address] [id number] [place] [address]- 7743 Apr, [facility] [place] [facility] [address] [id number] [place] [address]- 5755 Apr, [facility] [place] [facility] [address] [id number] [place] [address]- 2546 Apr, [facility] [place] [facility] [address] [id number] [place] [address]- 8436 March, [facility] [place] [facility] [address] [id number] [place] [address]- 0468 March, [facility] [place] [facility] [address] [id number] [place] [address]- 9089 Jan, [facility] [place] [facility] [address] [id number] [place] [address]- 7823 Jan, [facility] [place] [facility] [address] [id number] [place] [address]- 0115 Jan, [facility] [place] [facility] [address] [id number] [place] [address]- 1000 Jan, [facility] [place] [facility] [address] [id number] [place] [address]- 1767 Dec, [facility] [place] [facility] [address] [id number] [place] [address]- 9385 25 Dec, 2013 [facility] [place] [facility] [address] [id number] [place] [address]- 2780 18 Dec, 2013 [facility] [place] [facility] [address] [id number] [place] [address]- 6447 18 Dec, 2013 [facility] [place] [facility] [address] [id number] [place] [address]- 0602 15 Dec, 2013 [facility] [place] [facility] [address] [id number] [place] [address]- 7313 14 Dec, 2013 [facility] [place] [facility] [address] [id number] [place] [address]- 9611 13 Dec, 2013 [facility] [place] [facility] [address] [id number] [address]- 5475 13 Dec, 2013 [facility] [place] [facility] [address] [id number] [place] [address]- 4400 12 Dec, 2013 [facility] [place] [facility] [address] [id number] [place] [address]- 4985 12 Dec, 2013 [facility] [place] [facility] [address] [id number] [place] [address]- 1149 05 Dec, 2013 [facility] [place] [facility] [address] [id number] [place] [address]- 0513 Dec, [facility] [place] [facility] [address] [id number] [place] [address]- 1236 Dec, [facility] [place] [facility] [address] [id number] [place] [address]- 4576 Dec, [facility] [place] [facility] [address] [id number] [place] [address]- 4316 Dec, [facility] [place] [facility] [address] [id number] [place] [address]- 3606 Dec, [facility] [place] [facility] [address] [id number] [place] [address]- 5996 Dec, [facility] [place] [facility] [address] [id number] [place] [address]- 6566 Dec, [facility] [place] [facility] [address] [id number] [place] [address]- 9962 Nov, [facility] [place] [facility] [address] [id number] [place] [address]- 0576 Nov, [facility] [place] [facility] [address] [id number] [place] [address]- 6566 Nov, [facility] [place] [facility] [address] [id number] [place] [address]- 9926 Nov, [facility] [place] [facility] [address] [id number] [place] [address]- 6441 Nov, [facility] [place] [facility] [address] [id number] [place] [address]- 2419 Nov, [facility] [place] [facility] [address] [id number] [place] [address]- 9434 Nov, [facility] [place] [facility] [address] [id number] [place] [address] 2546 Nov, [facility] [place] [facility] [address] [id number] [place] [address]- 2380 Oct, [facility] [place] [facility] [address] [id number] [place] [address]- 3284 Oct, [facility] [place] [facility] [address] [id number] [place] [address]- 4047 Oct, [facility] [place] [facility] [address] [id number] [place] [address]- 9027 Oct, [facility] [place] [facility] [address] [id number] [place] [address]- 7185 Oct, [facility] [place] [facility] [address] [id number] [place] [address] Oct, [facility] [place] [facility] [address] [id number] [place] [address] Sep, [facility] [place] [facility] [address] [id number] [place] [address] Sep, [facility] [place] [facility] [address] [id number], [place] [address] Sep, [facility] [place] [facility] [address] [id number] [place] [address] Sep, [facility] [place] [facility] [address] [id number], [place] [address] Aug, [facility] [place] [facility] [address] [id number], [place] [address] Aug, [facility] [place] [facility] [address] [id number], [place] [address] Aug, [facility] [place] [facility] [address] [id number] [place] [address] Aug, [facility] [place] [facility] [address] [id number], [place] [address] Jul, [facility] [place] [facility] [address] [id number], [place] [address] 05 Jul, 2013 [facility] [place] [facility] [address] [id number] [place] [address] Jun, [facility] [address] [id number] [place] [address] Jun, [facility] [address] [id number] [place] [address] Apr, [facility] [address] [id number] [place] [address] Apr, [facility] [address] [id number] [place] [address] 15 Apr, 2013 [facility] [address] [id number] [place] [address] 14 Apr, 2013 [facility] [address] [id number] [place] [address] March, [facility] [address] [id number] [place] [address] March, [facility] [address] [id number] [place] [address] March, [facility] [address] [id number] [place] [address] Jan, [facility] [address] [id number] [place] [address] Jan, [facility] [address] [id number] [place] [address] Dec, [facility] [place] [facility] [address] [id number] [place] [address] Dec, [facility] [place] [facility] [address] [id number] [place] [address] Dec, [facility] [place] [facility] [address] [id number] [place] [address] 28 Dec, 2012 [facility] [place] [facility] [address] [id number] [place] [address] Dec, [facility] [place] [facility] [address] [id number] [place] [address] Dec, [facility] [address] [id number] [place] [address] Nov, [facility] [address] [id number] [place] [address] Nov, [facility] [address] [id number] [place] [address] Oct, [facility] [address] [id number] [place] [address] Oct, [facility] [address] [id number] [place] [address] Oct, [facility] [address] [id number] [place] [address] Oct, [facility] [address] [id number] [place] [address] Oct, [facility] [address] [id number] [place] [address] Oct, [facility] [address] [id number] [place] [address] Oct, [facility] [address] [id number] [place] [address] Oct, [facility] [address] [id number] [place] [address] Oct, [facility] [place] [facility] [address] [id number] [place] [address] Oct, [facility] [place] [facility] [address] [id number] [place] [address] Sep, [facility] [place] [facility] [address] [id number] [place] [address] Sep, [facility] [place] [facility] [address] [id number] [place] [address] Sep, [facility] [place] [facility] [address] [id number] [place] [address] Sep, [facility] [place] [facility] [address] [id number] [place] [address] Aug, [facility] [place] [facility] [address] [id number] [place] [address] Aug, [facility] [place] [facility] [address] [id number] [place] [address] Aug, [facility] [place] [facility] [address] [id number] [place] [address] Jul, [facility] [place] [facility] [address] [id number] [place] [address] Jun, [facility] [place] [facility] [address] [id number] [place] [address] Jun, [facility] [place] [facility] [address] [id number] [place] [address] May, [facility] [place] [facility] [address] [id number] [place] [address] Apr, [facility] [place] [facility] [address] [id number] [place] [address] March, [facility] [place] [facility] [address] [id number] [place] [address] Jan, [facility] [place] [facility] [address] [id number] [place] [address] Dec, [facility] [place] [facility] [address] [id number] [place] [address] Dec, [facility] [place] [facility] [address] [id number] [place] [address] Nov, [facility] [place] [facility] [address] [id number] [place] [address] Oct, [facility] [place] [facility] [address] [facility] [id number], [place] [address] Oct, [facility] [address] [facility] [id number], [place] [address] Sep, [facility] [address] [facility] [id number], [place] [address] Aug, [facility] [address] [facility] [id number], [place] [address] Dec, [facility] [address] [facility] [id number], [place] [address] Oct, [facility] [id number], [place] [address] Oct, [facility] [address] [id number], [place] [address] Oct, [facility] [id number], [place] [address] Jun, [facility] [address] [id number], [place] [address] Jun, [facility] [id number], [place] [address] Oct, [facility] [id number] [address] Sep, [facility] [id number], [place] [address] Sep, [facility] [address] [id number], [place] [address] Sep, [facility] [id number], [place] [address] Aug, [facility] [address] [id number] [address] 10 Dec, 2008 IMMUNIZATIONS No Known Immunizations SOCIAL HISTORY Never Assessed REASON FOR VISIT Update Demographics - Additional Info PLAN OF CARE VITAL SIGNS MEDICATIONS [...]
--- OUTSIDE RECORDS SUMMARY | 2019-01-13 21:47 | XMS REPORT ---
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 73523894 Problem Elevated lymphocytes D72.820 Active 54235526 Problem Prediabetes R73.03 Active 865465159 Problem Chronic reflux esophagitis K21.0 Active 917733668 Problem Chronic fatigue R53.82 Active 63267787 Problem BMI 35.0-35.9,adult Z68.35 Active 011462033 Problem Major depressive disorder, recurrent episode, moderate F33.1 Active 404918047 Problem Seasonal allergic rhinitis due to pollen J30.1 Active 94099695 Problem WILMA (generalized anxiety disorder) F41.1 Active 20522127 Problem Severe episode of recurrent major depressive disorder, without 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 Active 62141289 Problem Carpal tunnel syndrome of right wrist G56.01 Active 76832840 Problem PTSD (post-traumatic stress disorder) F43.10 Active 89414285 ALLERGIES No Information ENCOUNTERS Encounter Location Date Diagnosis [facility] [id number] [address] Nov, [facility] [id number], [place] [address] Aug, [facility] [id number] [place] [address] 33769- 3503 Aug, [facility] [id number], [place] [address] 160[address] Jul, Severe episode of recurrent major depressive disorder, without 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 ; WILMA (generalized anxiety disorder) F41.1 and PTSD (post-traumatic stress disorder) F43.10 [address], [place] [address] Jun, [id number] [place] [address] 04520- 6254 Jun, Severe episode of recurrent major depressive disorder, without 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 ; WILMA (generalized anxiety disorder) F41.1 and PTSD (post-traumatic stress disorder) F43.10 [id number] [place] [address] 60957- 5571 Jun, Encounter to establish care Z76.89 ; Diarrhea, unspecified type R19.7 ; Carpal tunnel syndrome of right wrist G56.01 ; Tobacco use Z72.0 ; Major depressive disorder, recurrent episode, moderate F33.1 and Seasonal allergic rhinitis due to pollen J30.1 [id number] [place] [address] 81382- 5092 Jun, Severe episode of recurrent major depressive disorder, without 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 ; WILMA (generalized anxiety disorder) F41.1 and PTSD (post-traumatic stress disorder) F43.10 [id number] [place] [address] 20578- 9903 May, Severe episode of recurrent major depressive disorder, without 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 ; WILMA (generalized anxiety disorder) F41.1 and PTSD (post-traumatic stress disorder) F43.10 [id number] [place] [address] 06239- 0323 May, Scalp cyst L72.9 [id number] [place] [address] 35631- 9177 May, Severe episode of recurrent major depressive disorder, without 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 ; WILMA (generalized anxiety disorder) F41.1 and PTSD (post-traumatic stress disorder) F43.10 [address] [place] [address] 10827- 9237 Apr, Severe episode of recurrent major depressive disorder, without 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 ; WILMA (generalized anxiety disorder) F41.1 and PTSD (post-traumatic stress disorder) F43.10 [id number] [place] [address] 09790- 2634 March, Severe episode of recurrent major depressive disorder, without 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 ; WILMA (generalized anxiety disorder) F41.1 and PTSD (post-traumatic stress disorder) F43.10 [id number] [place] [address] 02729- 8272 March, Severe episode of recurrent major depressive disorder, without 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 ; WILMA (generalized anxiety disorder) F41.1 and PTSD (post-traumatic stress disorder) F43.10 [id number] [place] [address] 74388- 5997 March, [address] [id number] [place] [address] 99071- 4384 Jan, Severe episode of recurrent major depressive disorder, without 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 ; WILMA (generalized anxiety disorder) F41.1 and PTSD (post-traumatic stress disorder) F43.10 [id number] [place] [address] 09303- 4682 Jan, Carpal tunnel syndrome of right wrist G56.01 [id number] [place] [address] 37220- 8070 Jan, Severe episode of recurrent major depressive disorder, without 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 ; WILMA (generalized anxiety disorder) F41.1 and PTSD (post-traumatic stress disorder) F43.10 [address] [place] [address] 42731- 7225 Dec, Severe episode of recurrent major depressive disorder, without 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 ; WILMA (generalized anxiety disorder) F41.1 and PTSD (post-traumatic stress disorder) F43.10 [address], [place] [address] 3902 Dec, Severe episode of recurrent major depressive disorder, without 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 ; WILMA (generalized anxiety disorder) F41.1 and PTSD (post-traumatic stress disorder) F43.10 [id number] [place] [address]- 000 Dec, Severe episode of recurrent major depressive disorder, without 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 ; WILMA (generalized anxiety disorder) F41.1 and PTSD (post-traumatic stress disorder) F43.10 [address]- 329 Dec, Severe episode of recurrent major depressive disorder, without 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 [address] [place] [address]- 341 Dec, Severe episode of recurrent major depressive disorder, without 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 ; WILMA (generalized anxiety disorder) F41.1 and PTSD (post-traumatic stress disorder) F43.10 [address] [place]- 0737 Dec, Severe episode of recurrent major depressive disorder, without 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 ; WILMA (generalized anxiety disorder) F41.1 and PTSD (post-traumatic stress disorder) F43.10 [id number] [place] [address] [address] Dec, Severe episode of recurrent major depressive disorder, without 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 and Anxiety state, unspecified F41.1 [id number] [place] [address] Dec, Severe episode of recurrent major depressive disorder, without 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 and Anxiety state, unspecified F41.1 [id number] [place] Nov, Depression, major, recurrent, moderate F33.1 and Anxiety state, unspecified F41.1 [id number] [place] [address] 88217- 185 Nov, Depression, major, recurrent, moderate F33.1 and Anxiety state, unspecified F41.1 [id number] [place] [address]227 Oct, Depression, major, recurrent, moderate F33.1 and Anxiety state, unspecified F41.1 [id number] [place] [address] [address] Oct, Depression, major, recurrent, moderate F33.1 and Post- cholecystectomy syndrome K91.5 [address] [id number] [place] [address] 59902- 0831 Oct, Depression, major, recurrent, moderate F33.1 and Anxiety state, unspecified F41.1 [address] [id number] [place] [address] 76852- 3348 Sep, Depression, major, recurrent, moderate F33.1 and Anxiety state, unspecified F41.1 [id number] [place] [address] 96564- 3774 Sep, Depression, major, recurrent, moderate F33.1 and Anxiety state, unspecified F41.1 [id number] [place] [address] 05136- 9747 Sep, Depression, major, recurrent, moderate F33.1 and Anxiety state, unspecified F41.1 [id number] [place] [address] 19483- 1252 Sep, Diarrhea, unspecified type R19.7 [id number] [place] [address] 63129- 9661 Aug, Depression, major, recurrent, moderate F33.1 and Anxiety state, unspecified F41.1 [id number] [place] [address] Aug, Depression, major, recurrent, moderate F33.1 and Anxiety state, unspecified F41.1 [id number] [place] [address] 21818- 0249 Jul, Depression, major, recurrent, moderate F33.1 and Anxiety state, unspecified F41.1 [address] [place]- 4461 Jun, Depression, major, recurrent, moderate F33.1 and Anxiety state, unspecified F41.1 [address] [address]70- 8183 Jun, Generalized abdominal pain R10.84 ; Diarrhea, unspecified type R19.7 ; Acute cystitis without hematuria N30.00 ; Abdominal bloating R14.0 and Elevated blood pressure reading R03.0 [address] 49988- 6736 Jun, Depression, major, recurrent, moderate F33.1 and Anxiety state, unspecified F41.1 [address] 56593- 2590 May, Depression, major, recurrent, moderate F33.1 and Anxiety state, unspecified F41.1 [address] 20436- 4445 May, Elevated lymphocytes D72.820 [address] 84204- 5694 May, Elevated lymphocytes D72.820 [address] 45339- 2303 May, BMI 35.0-35.9,adult Z68.35 ; Other fatigue R53.83 ; Pelvic pain R10.2 ; Tobacco use Z72.0 and Chronic reflux esophagitis K21.0 [address]- 5500 Apr, [address] [address]- 2014 Apr, Depression, major, recurrent, moderate F33.1 and Anxiety state, unspecified F41.1 [facility] [address], [place] [address]- 4356 14 Apr, 2017 Depression, major, recurrent, moderate F33.1 and Anxiety state, unspecified F41.1 [facility] [address], [place] [address]- 1371 Apr, [facility] [id number] [place] [address] 15962- 1583 March, Major depressive disorder, recurrent episode, mild F33.0 and Anxiety state, unspecified F41.1 [facility] [address] [place] [address] 27459 -9501 March, Sore throat J02.9 and Submandibular lymphadenopathy R59.0 [facility] [address], [place] [address]- 3826 Dec, Major depressive disorder, recurrent episode, mild F33.0 and Anxiety state, unspecified F41.1 [address], [place] [address]- 4081 Dec, Major depressive disorder, recurrent episode, mild F33.0 and Anxiety state, unspecified F41.1 [facility] [address], [place] [address]- 7052 Dec, Major depressive disorder, recurrent episode, mild F33.0 and Anxiety state, unspecified F41.1 [facility] [address], [place] [address]- 7010 Sep, Major depressive disorder, recurrent episode, mild F33.0 and Anxiety state, unspecified F41.1 [address], [place] [address]- 3513 Sep, Major depressive disorder, recurrent episode, moderate F33.1 and Anxiety state, unspecified F41.1 [address], [place] [address]- 6464 Aug, Major depressive disorder, recurrent episode, moderate F33.1 and Anxiety state, unspecified F41.1 [address], [place] [address]- 9484 Aug, Major depressive disorder, recurrent episode, moderate F33.1 and Anxiety state, unspecified F41.1 [address], [place] [address]- 1816 Jul, Major depressive disorder, recurrent episode, moderate F33.1 and Anxiety state, unspecified F41.1 [address] [id number] [place] [address] 37477- 0105 Jul, Major depressive disorder, recurrent episode, moderate F33.1 and Anxiety state, unspecified F41.1 [id number] [place] [address] 17448- 4854 Jun, Major depressive disorder, recurrent episode, moderate F33.1 and Anxiety state, unspecified F41.1 [address] [id number] [place] [address] 15187- 3475 Jun, Major depressive disorder, recurrent episode, moderate F33.1 and Anxiety state, unspecified F41.1 [address] [place] [address] 65260- 0243 May, Major depressive disorder, recurrent episode, moderate F33.1 and Anxiety state, unspecified F41.1 [address] [place] [address] 70968- 7218 Apr, Major depressive disorder, recurrent episode, moderate F33.1 and Anxiety state, unspecified F41.1 [address] [place] [address] 53100- 4148 Apr, Major depressive disorder, recurrent episode, moderate F33.1 and Anxiety state, unspecified F41.1 [address], [place] [address]- 3706 Dec, Major depressive disorder, recurrent episode, moderate F33.1 and Anxiety state, unspecified F41.1 [facility] [address] [place] [address] 33636- 8073 Dec, Major depressive disorder, recurrent episode, moderate F33.1 and Anxiety state, unspecified F41.1 [facility] [address] [place] [address] 78472 -9752 Dec, Pharyngitis J02.9 and Acute frontal sinusitis J01.10 [facility] [id number] [place] [address] 02032- 3203 Nov, Bilateral occipital neuralgia M54.81 and Neck muscle spasm M62.838 [id number] [place] [address] 90799- 6253 Nov, Major depressive disorder, recurrent episode, moderate F33.1 and Anxiety state, unspecified F41.1 [id number] [place] [address] 74237- 7156 Sep, Major depressive disorder, recurrent episode, moderate F33.1 and Anxiety state, unspecified F41.1 [address] [id number] [place] [address] 75070- 5559 Aug, Major depressive disorder, recurrent episode, moderate F33.1 and Anxiety state, unspecified F41.1 [id number] [place] [address] 02402- 9097 Jul, Abdominal pain 789.00 ; Hematochezia 578.1 and Weight loss 783.21 [facility] [id number] [place] [address] 75916- 5854 May, [address] 00042- 9472 March, [address] [id number] [place] [address] 41794- 7100 March, [id number] [place] [address] 81883- 7466 Jan, [facility] [place] [facility] [address] [id number] [place] [address]- 0023 13 Jan, 2014 [facility] [place] [facility] [address] [id number] [place] [address]- 4604 Dec, 2014 [facility] [place] [facility] [address] [id number] [place] [address]- 5874 Dec, 2014 [facility] [place] [facility] [address] [id number] [place] [address]- 0543 Dec, 2014 [facility] [place] [facility] [address] [id number] [place] [address]- 6114 Dec, 2014 [facility] [place] [facility] [address] [id number] [place] [address]- 7097 Dec, 2014 [facility] [place] [facility] [address] [id number] [place] [address]- 2744 Dec, 2014 [facility] [place] [facility] [address] [id number] [place] [address]- 2471 Jul, 2013 [facility] [place] [facility] [address] [id number] [place] [address]- 4004 Jul, 2013 [facility] [place] [facility] [address] [id number] [place] [address]- 9731 Jul, 2013 [facility] [place] [facility] [address] [id number] [place] [address]- 1361 11 Jul, 2013 [facility] [place] [facility] [address] [id number] [address]- 2540 10 Jul, 2013 [facility] [place] [facility] [address] [id number] [place] [address]- 2543 10 Jul, 2013 [facility] [place] [facility] [address] [id number] [place] [address]- 9079 09 Jul, 2013 [facility] [place] [facility] [address] [id number] [place] [address]- 4618 09 Jul, 2013 [facility] [place] [facility] [address] [id number] [place] [address]- 9875 Jul, [facility] [address] [id number] [place] [address]- 0072 Jul, [facility] [place] [facility] [address] [id number] [place] [address]- 8804 Jul, [facility] [place] [facility] [address] [id number] [place] [address]- 0815 Jul, [facility] [place] [facility] [address] [id number] [place] [address]- 6229 May, [facility] [place] [facility] [address] [id number] [place] [address]- 4799 May, [facility] [place] [facility] [address] [id number] [place] [address]- 8474 Apr, [facility] [place] [facility] [address] [id number] [place] [address]- 4900 Apr, [facility] [address] [id number] [place] [address]- 1223 Apr, [facility] [place] [facility] [address] [id number] [place] [address]- 8215 Apr, [facility] [address] [id number] [place] [address]- 2352 March, [facility] [place] [facility] [address] [id number] [place] [address]- 3230 March, [facility] [place] [facility] [address] [id number] [place] [address]- 4790 Jan, [facility] [place] [facility] [address] [id number] [place] [address]- 6130 Jan, [facility] [place] [facility] [address] [id number] [place] [address]- 7321 Jan, [facility] [place] [facility] [address] [id number] [place] [address]- 3285 Jan, [facility] [place] [facility] [address] [id number] [place] [address]- 3255 Dec, [facility] [place] [facility] [address] [id number] [place] [address]- 3280 25 Dec, 2013 [facility] [place] [facility] [address] [id number] [place] [address]- 1860 18 Dec, 2013 [facility] [place] [facility] [address] [id number] [place] [address]- 6047 18 Dec, 2013 [facility] [place] [facility] [address] [id number] [place] [address]- 0390 15 Dec, 2013 [facility] [place] [facility] [address] [id number] [place] [address]- 9364 14 Dec, 2013 [facility] [place] [facility] [address] [id number] [place] [address]- 2903 13 Dec, 2013 [facility] [place] [facility] [address] [id number] [place] [address]- 0882 13 Dec, 2013 [facility] [place] [facility] [address] [id number] [place] [address]- 2407 12 Dec, 2013 [facility] [place] [facility] [address] [id number] [place] [address]- 0271 Dec, [facility] [place] [facility] [address] [id number] [place] [address]- 0263 05 Dec, 2013 [facility] [place] [facility] [address] [id number] [place] [address]- 1969 05 Dec, 2013 [facility] [place] [facility] [address] [id number] [place] [address]- 3377 Dec, [facility] [place] [facility] [address] [id number] [place] [address] 9417 Dec, [facility] [place] [facility] [address] [id number] [place] [address]- 4112 Dec, [facility] [place] [facility] [address] [id number], [place] [address]- 0369 Dec, [facility] [address] [id number] [place] [address]- 2591 Dec, [facility] [place] [facility] [address] [id number] [place] [address]- 3132 Dec, [facility] [place] [facility] [address] [id number] [place] [address]- 0972 Nov, [facility] [place] [facility] [address] [id number] [place] [address]- 7096 Nov, [facility] [place] [facility] [address] [id number] [place] [address]- 6130 Nov, [facility] [place] [facility] [address] [id number] [place] [address]- 7574 Nov, [facility] [address] [id number] [place] [address]- 0254 Nov, [facility] [place] [facility] [address] [id number] [place] [address]- 7840 Nov, [facility] [address] [id number] [place] [address]- 1075 Nov, [facility] [address] [facility] [id number] [place] [address]- 5234 Nov, [facility] [place] [facility] [address] [id number] [place] [address]- 1969 Oct, [facility] [place] [facility] [address] [id number] [place] [address]- 1817 Oct, [facility] [place] [facility] [address] [id number] [place] [address]- 7691 Oct, [facility] [place] [facility] [address] [id number] [place] [address]- 8079 Oct, [facility] [place] [facility] [address] [id number] [place] [address]- 3593 Oct, [facility] [place] [facility] [address] [id number] [place] [address]- 9602 Oct, [facility] [place] [facility] [address] [id number] [place] [address]- 0436 Sep, [facility] [place] [facility] [address] [id number] [place] [address]- 2005 Sep, [facility] [place] [facility] [address] [id number] [place] [address]- 0957 Sep, [facility] [place] [facility] [address] [id number] [place] [address]- 5705 Sep, [facility] [place] [facility] [address] [id number] [place] [address]- 1643 Aug, [facility] [place] [facility] [address] [id number] [place] [address]- 5928 Aug, [facility] [place] [facility] [address] [id number] [place] [address] Aug, [facility] [place] [facility] [address] [id number] [place] [address] Aug, [facility] [place] [facility] [address] [id number] [place] [address] Jul, [facility] [place] [facility] [address] [id number] [place] [address] Jul, [facility] [place] [facility] [address] [id number] [place] [address] Jun, [facility] [place] [facility] [address] [id number] [place] [address] Jun, [facility] [place] [facility] [address] [id number] [place] [address] Apr, [facility] [place] [facility] [address] [id number] [place] [address] Apr, [facility] [place] [facility] [address] [id number] [place] [address] 15 Apr, 2013 [facility] [address] [id number] [place] [address] 14 Apr, 2013 [facility] [address] [id number] [place] [address] March, [facility] [address] [id number] [place] [address] March, [facility] [address] [id number] [place] [address] March, [facility] [address] [id number] [place] [address] Jan, [facility] [address] [id number] [place] [address] Jan, [facility] [address] [id number] [place] [address] Dec, [facility] [place] [facility] [address] [id number] [place] [address] Dec, [facility] [address] [id number] [place] [address] Dec, [facility] [place] [facility] [address] [id number] [place] [address] Dec, [facility] [address] [id number] [place] [address] Dec, [facility] [place] [facility] [address] [id number] [place] [address] Dec, [facility] [place] [facility] [address] [id number] [place] [address] Nov, [facility] [place] [facility] [address] [id number] [place] [address] Nov, [facility] [place] [facility] [address] [id number] [place] [address] Oct, [facility] [place] [facility] [address] [id number] [place] [address] Oct, [facility] [address] [id number] [place] [address] Oct, [facility] [place] [facility] [address] [id number] [place] [address] Oct, [facility] [address] [id number] [place] [address] Oct, [facility] [place] [facility] [address] [id number] [place] [address] Oct, [facility] [address] [id number] [place] [address] Oct, [facility] [place] [facility] [address] [id number] [place] [address] Oct, [facility] [place] [facility] [address] [id number] [place] [address] Oct, [facility] [address] [id number] [place] [address] Oct, [facility] [place] [facility] [address] [id number] [place] [address] Sep, [facility] [address] [id number] [place] [address] Sep, [facility] [place] [facility] [address] [id number] [place] [address] Sep, [facility] [place] [facility] [address] [id number] [place] [address] Sep, [facility] [place] [facility] [address] [id number] [place] [address] Aug, [facility] [place] [facility] [address] [id number] [place] [address] Aug, [facility] [place] [facility] [address] [id number] [place] [address] Aug, [facility] [place] [facility] [address] [id number] [place] [address] Jul, [facility] [place] [facility] [address] [id number] [place] [address] Jun, [facility] [place] [facility] [address] [id number] [place] [address] Jun, [facility] [place] [facility] [address] [id number] [place] [address] May, [facility] [place] [facility] [address] [id number] [place] [address] Apr, [facility] [place] [facility] [address] [id number] [place] [address] March, [facility] [place] [facility] [address] [id number] [place] [address] Jan, [facility] [place] [facility] [address] [id number] [place] [address] Dec, [facility] [place] [facility] [address] [id number] [place] [address] Dec, [facility] [place] [facility] [address] [facility] [id number] [place] [address] Nov, [facility] [place] [facility] [address] [id number] [place] [address] Oct, [facility] [place] [facility] [address] [id number] [address] Oct, [facility] [place] [facility] [address] [id number] [place] [address] Sep, [facility] [place] [facility] [address] [id number] [place] [address] Aug, [facility] [place] [facility] [address] [id number] [place] [address] 17 Dec, 2010 [facility] [place] [facility] [id number] [address] Oct, [facility] [id number] [address] Oct, [facility] [id number] [address] Oct, [facility] [id number], [place] [address] Jun, [facility] [id number] [place] [address] Jun, [facility] [id number] [place] [address] Oct, [facility] [address] [address] Sep, [facility] [address] [place] [address] Sep, [facility] [address] [place] [address] Sep, [facility] [address] [place] [address] Aug, [facility] [id number] [address] Dec, IMMUNIZATIONS No Known Immunizations SOCIAL HISTORY Never Assessed REASON FOR VISIT Follow-up Depression/Anxiety PLAN OF CARE Activity Details Follow Up 2 Weeks Reason: Follow-up VITAL SIGNS MEDICATIONS Unknown Medications RESULTS No Results PROCEDURES Procedure Date Ordered Result Body Site Psychotherapy, patient &/family, 45 minutes, established patient Jul 06, 2018 INSTRUCTIONS MEDICATIONS ADMINISTERED No Known Medications MEDICAL [...]
--- OUTSIDE RECORDS SUMMARY | 2019-01-13 21:48 | XMS REPORT ---
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 24772409 Problem Elevated lymphocytes D72.820 Active 29871392 Problem Prediabetes R73.03 Active 862225328 Problem Chronic reflux esophagitis K21.0 Active 179792803 Problem Chronic fatigue R53.82 Active 80525421 Problem BMI 35.0-35.9,adult Z68.35 Active 863533583 Problem Major depressive disorder, recurrent episode, moderate F33.1 Active 627295886 Problem Seasonal allergic rhinitis due to pollen J30.1 Active 20996099 Problem WILMA (generalized anxiety disorder) F41.1 Active 17060220 Problem Severe episode of recurrent major depressive disorder, without 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 Active 27810668 Problem Carpal tunnel syndrome of right wrist G56.01 Active 67234708 Problem PTSD (post-traumatic stress disorder) F43.10 Active 23204455 ALLERGIES Substance Reaction Event Type Date Status Latex rash Drug Allergy Jun, Active Wellbutrin suicidel thoughts Drug Allergy Jun, Active Citalopram 20 Mg Tablet Fatigue, "foggy", decreased sex drive Non Drug Allergy Jun, Active ENCOUNTERS Encounter Location Date Diagnosis [facility] [address] [facility] [id number] [address] Nov, [facility] [address] [facility] [id number], [place] [address] Aug, [facility] [address] [facility] [id number], [place] [address] Aug, [place] [id number] [place] [address] 51048- 7916 Jul, Severe episode of recurrent major depressive disorder, without 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 ; WILMA (generalized anxiety disorder) F41.1 and PTSD (post-traumatic stress disorder) F43.10 [place] [address] [place] [id number] [place] [address] 19391- 2156 Jun, [place] [address] [address]- [address] Jun, Severe episode of recurrent major depressive disorder, without 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 ; WILMA (generalized anxiety disorder) F41.1 and PTSD (post-traumatic stress disorder) F43.10 [place] [address] [place] [id number] [place] [address] 73443- 8766 Jun, Encounter to establish care Z76.89 ; Diarrhea, unspecified type R19.7 ; Carpal tunnel syndrome of right wrist G56.01 ; Tobacco use Z72.0 ; Major depressive disorder, recurrent episode, moderate F33.1 and Seasonal allergic rhinitis due to pollen J30.1 [place] [address] [place] [id number] [place] [address] 49479- 4109 Jun, Severe episode of recurrent major depressive disorder, without 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 ; WILMA (generalized anxiety disorder) F41.1 and PTSD (post-traumatic stress disorder) F43.10 [place] [address] [place] [id number] [place] [address] 07761- 5764 May, Severe episode of recurrent major depressive disorder, without 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 ; WILMA (generalized anxiety disorder) F41.1 and PTSD (post-traumatic stress disorder) F43.10 [place] [address] [place] [id number] [place] [address] 99879- 3963 May, Scalp cyst L72.9 [place] [address] [place] [id number] [place] [address] 89081- 6967 May, Severe episode of recurrent major depressive disorder, without 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 ; WILMA (generalized anxiety disorder) F41.1 and PTSD (post-traumatic stress disorder) F43.10 [place] [address] [place] [address] 83693- 5780 Apr, Severe episode of recurrent major depressive disorder, without 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 ; WILMA (generalized anxiety disorder) F41.1 and PTSD (post-traumatic stress disorder) F43.10 [place] [address] [place] [id number] [place] [address] 72295- 3413 March, Severe episode of recurrent major depressive disorder, without 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 ; WILMA (generalized anxiety disorder) F41.1 and PTSD (post-traumatic stress disorder) F43.10 [place] [address] [place] [id number] [place] [address] 70279- 2566 March, Severe episode of recurrent major depressive disorder, without 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 ; WILMA (generalized anxiety disorder) F41.1 and PTSD (post-traumatic stress disorder) F43.10 [place] [address] [place] [id number] [place] [address] 03608- 9432 March, [place] [address] [place] [id number] [place] [address] 12275- 0865 Jan, Severe episode of recurrent major depressive disorder, without 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 ; WILMA (generalized anxiety disorder) F41.1 and PTSD (post-traumatic stress disorder) F43.10 [place] [address] [place] [address] 65682- 4260 Jan, Carpal tunnel syndrome of right wrist G56.01 [place] [address] [place] [address] 84571- 5232 Jan, Severe episode of recurrent major depressive disorder, without 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 ; WILMA (generalized anxiety disorder) F41.1 and PTSD (post-traumatic stress disorder) F43.10 [place] [address] [address] Dec, Severe episode of recurrent major depressive disorder, without 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 ; WILMA (generalized anxiety disorder) F41.1 and PTSD (post-traumatic stress disorder) F43.10 [place] [address] [place] [id number] [place] [address] 91613- 8983 Dec, Severe episode of recurrent major depressive disorder, without 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 ; WILMA (generalized anxiety disorder) F41.1 and PTSD (post-traumatic stress disorder) F43.10 [place] [address] 01124- 2262 Dec, Severe episode of recurrent major depressive disorder, without 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 ; WILMA (generalized anxiety disorder) F41.1 and PTSD (post-traumatic stress disorder) F43.10 [place] [address] 276563- 4321 Dec, Severe episode of recurrent major depressive disorder, without 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 [place] [address] 73042- 0454 Dec, Severe episode of recurrent major depressive disorder, without 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 ; WILMA (generalized anxiety disorder) F41.1 and PTSD (post-traumatic stress disorder) F43.10 [place] [address] [place] [id number] [place] [address] 36040- 6225 Dec, Severe episode of recurrent major depressive disorder, without 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 ; WILMA (generalized anxiety disorder) F41.1 and PTSD (post-traumatic stress disorder) F43.10 [place] [address] [place] [id number] [place] [address] 13366- 8503 Dec, Severe episode of recurrent major depressive disorder, without 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 and Anxiety state, unspecified F41.1 [place] [address] [place] [id number] [place] [address] 24642- 3198 Dec, Severe episode of recurrent major depressive disorder, without 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 and Anxiety state, unspecified F41.1 [place] [address] [place] [id number] [place] [address] 30827- 7608 Nov, Depression, major, recurrent, moderate F33.1 and Anxiety state, unspecified F41.1 [place] [address] [place] [id number] [place] [address] [address] Nov, Depression, major, recurrent, moderate F33.1 and Anxiety state, unspecified F41.1 [place] [address] [place] [id number] [place] [address] Oct, Depression, major, recurrent, moderate F33.1 and Anxiety state, unspecified F41.1 [place] [address] [place] [id number] [place] [address] 60456- 3016 Oct, Depression, major, recurrent, moderate F33.1 and Post- cholecystectomy syndrome K91.5 [place] [address] [place] [id number] [place] [address] 57392- 2241 Oct, Depression, major, recurrent, moderate F33.1 and Anxiety state, unspecified F41.1 [place] [address] [place] [id number] [place] [address] 69010- 2560 Sep, Depression, major, recurrent, moderate F33.1 and Anxiety state, unspecified F41.1 [place] [address] [place] [id number] [place] [id number] 16 Sep, 2017 Depression, major, recurrent, moderate F33.1 and Anxiety state, unspecified F41.1 [place] [address] [place] [id number] [place] [address] 886718- 3719 09 Sep, 2017 Depression, major, recurrent, moderate F33.1 and Anxiety state, unspecified F41.1 [place] [address] [place] [id number] [place] [address] 40408- 7479 08 Sep, 2017 Diarrhea, unspecified type R19.7 [place] [address] [place] [id number] [place] [address] 30 Aug, 2017 Depression, major, recurrent, moderate F33.1 and Anxiety state, unspecified F41.1 [place] [address] [place] [id number] [place] [address]24 Aug, Depression, major, recurrent, moderate F33.1 and Anxiety state, unspecified F41.1 [place] [address] [place] [address]396- 8637 Jul, Depression, major, recurrent, moderate F33.1 and Anxiety state, unspecified F41.1 [place] [address] [place] [id number]- 6804 Jun, Depression, major, recurrent, moderate F33.1 and Anxiety state, unspecified F41.1 [place] [address] 05281- 9240 Jun, Generalized abdominal pain R10.84 ; Diarrhea, unspecified type R19.7 ; Acute cystitis without hematuria N30.00 ; Abdominal bloating R14.0 and Elevated blood pressure reading R03.0 [place] [address] 68524- 8135 Jun, Depression, major, recurrent, moderate F33.1 and Anxiety state, unspecified F41.1 [place] [address] 95552- 1535 May, Depression, major, recurrent, moderate F33.1 and Anxiety state, unspecified F41.1 [place] [address] [place] [id number] [place] [address] 94117- 1838 May, Elevated lymphocytes D72.820 [place] [address] 01863- 4260 May, Elevated lymphocytes D72.820 [place] [address] 26254- 1148 May, BMI 35.0-35.9,adult Z68.35 ; Other fatigue R53.83 ; Pelvic pain R10.2 ; Tobacco use Z72.0 and Chronic reflux esophagitis K21.0 [place] [address] 04843- 6358 Apr, [place] [address] [place] [address] 31766- 6285 Apr, Depression, major, recurrent, moderate F33.1 and Anxiety state, unspecified F41.1 [place] [address] [place] [address] 33875- 4945 Apr, Depression, major, recurrent, moderate F33.1 and Anxiety state, unspecified F41.1 [place] [address] [place] [id number] [place] [address] 20936- 3647 Apr, [place] [address] [place] [id number] [place] [address] 63455- 0111 March, Major depressive disorder, recurrent episode, mild F33.0 and Anxiety state, unspecified F41.1 [facility] [address] [place] [id number] [place] [address] 40537 -3623 March, Sore throat J02.9 and Submandibular lymphadenopathy R59.0 [place] [address] [place] [id number] [place] [address] 25218- 0232 Dec, Major depressive disorder, recurrent episode, mild F33.0 and Anxiety state, unspecified F41.1 [place] [address] [place] [address] 94553- 8453 Dec, Major depressive disorder, recurrent episode, mild F33.0 and Anxiety state, unspecified F41.1 [place] [address] [place] [address] 56940- 1140 Dec, Major depressive disorder, recurrent episode, mild F33.0 and Anxiety state, unspecified F41.1 [place] [address] [place] [id number] [place] [address] 84759- 3847 Sep, Major depressive disorder, recurrent episode, mild F33.0 and Anxiety state, unspecified F41.1 [place] [address] [place] [address] 21671- 8182 Sep, Major depressive disorder, recurrent episode, moderate F33.1 and Anxiety state, unspecified F41.1 [place] [address] [address]- 0124 Aug, Major depressive disorder, recurrent episode, moderate F33.1 and Anxiety state, unspecified F41.1 [place] [address] [address]- 1581 Aug, Major depressive disorder, recurrent episode, moderate F33.1 and Anxiety state, unspecified F41.1 [place] [address] [address]- 0625 Jul, Major depressive disorder, recurrent episode, moderate F33.1 and Anxiety state, unspecified F41.1 [place] [address] [address]- 8532 Jul, Major depressive disorder, recurrent episode, moderate F33.1 and Anxiety state, unspecified F41.1 [place] [address] [address]- 3048 Jun, Major depressive disorder, recurrent episode, moderate F33.1 and Anxiety state, unspecified F41.1 [place] [address] [address]- 3875 Jun, Major depressive disorder, recurrent episode, moderate F33.1 and Anxiety state, unspecified F41.1 [place] [address] [address]- 4039 May, Major depressive disorder, recurrent episode, moderate F33.1 and Anxiety state, unspecified F41.1 [place] [address] [address]- 0218 Apr, Major depressive disorder, recurrent episode, moderate F33.1 and Anxiety state, unspecified F41.1 [place] [address] [address]- 5378 Apr, Major depressive disorder, recurrent episode, moderate F33.1 and Anxiety state, unspecified F41.1 [place] [address] [place] [id number] [place] [address] 46556- 4801 Dec, Major depressive disorder, recurrent episode, moderate F33.1 and Anxiety state, unspecified F41.1 [facility] [address] [place] [id number] [place] [address] 14913- 6182 Dec, Major depressive disorder, recurrent episode, moderate F33.1 and Anxiety state, unspecified F41.1 [facility] [address] [place] [id number] [place] [address] 06128 -2492 Dec, Pharyngitis J02.9 and Acute frontal sinusitis J01.10 [place] [address] [place] [id number] [place] [address] 32982- 1664 Nov, Bilateral occipital neuralgia M54.81 and Neck muscle spasm M62.838 [place] [address] [place] [id number] [place] [address] 59706- 2687 Nov, Major depressive disorder, recurrent episode, moderate F33.1 and Anxiety state, unspecified F41.1 [place] [address] [place] [id number] [place] [address] 84866- 0770 Sep, Major depressive disorder, recurrent episode, moderate F33.1 and Anxiety state, unspecified F41.1 [place] [address] [place] [id number] [place] [address] 22693- 4008 Aug, Major depressive disorder, recurrent episode, moderate F33.1 and Anxiety state, unspecified F41.1 [place] [address] [place] [id number] [place] [address] 29316- 3095 Jul, Abdominal pain 789.00 ; Hematochezia 578.1 and Weight loss 783.21 [place] [address] [place] [id number] [place] [address] 01488- 6432 May, [place] [address] [place] [id number] [place] [address] 66231- 4307 March, [facility] [place] [facility] [address] [id number] [place] [address]- 9162 March, [facility] [place] [facility] [address] [id number] [place] [address]- 0319 14 Jan, 2014 [facility] [place] [facility] [address] [id number] [place] [address]- 4218 Jan, 2014 [facility] [place] [facility] [address] [id number] [place] [address]- 4949 Dec, 2014 [facility] [place] [facility] [address] [id number] [place] [address]- 7494 Dec, 2014 [facility] [place] [facility] [address] [id number] [place] [address]- 9688 Dec, 2014 [facility] [place] [facility] [address] [facility] [id number] [place] [address]- 2719 Dec, 2014 [facility] [place] [facility] [address] [id number] [place] [address]- 0200 Dec, 2014 [facility] [place] [facility] [address] [id number] [place] [address]- 1710 Dec, 2014 [facility] [place] [facility] [address] [facility] [id number] [place] [address]- 3478 Jul, [facility] [place] [facility] [address] [id number], [place] [address]- 7842 25 Jul, 2013 [facility] [place] [facility] [address] [id number], [place] [address]- 8865 11 Jul, 2013 [facility] [place] [facility] [address] [id number] [place] [address]- 2546 11 Jul, 2014 [facility] [place] [facility] [address] [id number] [place] [address]- 2547 10 Jul, 2013 [facility] [place] [facility] [address] [id number], [place] [address]- 2541 10 Jul, 2013 [facility] [place] [facility] [address] [id number], [place] [address]- 1669 Jul, 2013 [facility] [place] [facility] [address] [id number] [place] [address]- 2830 Jul, 2013 [facility] [place] [facility] [address] [id number] [place] [address]- 3742 Jul, [facility] [place] [facility] [address] [id number] [place] [address]- 0872 Jul, [facility] [place] [facility] [address] [id number] [place] [address]- 7208 Jul, [facility] [place] [facility] [address] [id number] [place] [address]- 0767 Jul, [facility] [place] [facility] [address] [id number] [place] [address]- 3334 May, [facility] [place] [facility] [address] [id number] [place] [address]- 4208 May, [facility] [place] [facility] [address] [id number] [place] [address]- 7774 Apr, [facility] [place] [facility] [address] [id number] [place] [address]- 0087 Apr, [facility] [place] [facility] [address] [id number] [place] [address]- 0123 Apr, [facility] [place] [facility] [address] [id number] [place] [address]- 6421 Apr, [facility] [place] [facility] [address] [id number] [place] [address]- 2958 March, [facility] [place] [facility] [address] [id number] [place] [address]- 0366 March, [facility] [place] [facility] [address] [id number] [place] [address]- 6948 Jan, [facility] [place] [facility] [address] [id number] [place] [address]- 2355 Jan, [facility] [place] [facility] [address] [id number] [place] [address]- 2184 04 Jan, 2014 [facility] [place] [facility] [address] [id number] [place] [address]- 5061 Jan, [facility] [place] [facility] [address] [id number] [place] [address]- 4906 Dec, [facility] [place] [facility] [address] [id number] [place] [address]- 6955 25 Dec, 2013 [facility] [place] [facility] [address] [id number] [place] [address]- 6445 18 Dec, 2013 [facility] [place] [facility] [address] [id number] [place] [address]- 3302 18 Dec, 2013 [facility] [place] [facility] [address] [id number] [place] [address]- 8263 15 Dec, 2013 [facility] [place] [facility] [address] [id number] [place] [address]- 3141 14 Dec, 2013 [facility] [place] [facility] [address] [id number] [place] [address]- 1250 13 Dec, 2013 [facility] [place] [facility] [address] [id number] [place] [address]- 6031 13 Dec, 2013 [facility] [place] [facility] [address] [id number] [place] [address]- 9355 12 Dec, 2013 [facility] [place] [facility] [address] [id number] [place] [address]- 6630 12 Dec, 2013 [facility] [place] [facility] [address] [id number] [place] [address]- 8678 05 Dec, 2013 [facility] [place] [facility] [address] [id number] [place] [address]- 2722 05 Dec, 2013 [facility] [place] [facility] [address] [id number] [place] [address]- 2216 03 Dec, 2013 [facility] [place] [facility] [address] [id number] [place] [address]- 9356 Dec, [facility] [place] [facility] [address] [id number] [place] [address]- 3636 Dec, [facility] [place] [facility] [address] [id number] [place] [address]- 2856 Dec, [facility] [place] [facility] [address] [id number] [place] [address]- 0486 Dec, [facility] [place] [facility] [address] [id number] [place] [address]- 1627 Dec, [facility] [place] [facility] [address] [id number] [place] [address]- 7472 Nov, [facility] [place] [facility] [address] [id number] [place] [address]- 9484 Nov, [facility] [place] [facility] [address] [id number] [place] [address]- 5729 Nov, [facility] [place] [facility] [address] [id number] [place] [address]- 7033 Nov, [facility] [place] [facility] [address] [id number] [place] [address]- 3501 Nov, [facility] [place] [facility] [address] [id number] [place] [address]- 0785 Nov, [facility] [place] [facility] [address] [id number] [place] [address]- 5557 Nov, [facility] [place] [facility] [address] [id number] [place] [address]- 5821 Nov, [facility] [place] [facility] [address] [id number] [place] [address]- 4797 Oct, [facility] [place] [facility] [address] [id number] [place] [address]- 8527 Oct, [facility] [place] [facility] [address] [id number] [place] [address]- 7780 Oct, [facility] [place] [facility] [address] [id number] [place] [address]- 8079 Oct, [facility] [address] [id number] [place] [address]- 7474 Oct, [facility] [place] [facility] [address] [id number] [place] [address]- 2546 Oct, [facility] [address] [id number] [place] [address]- 4724 Sep, [facility] [place] [facility] [address] [id number] [place] [address]- 8952 Sep, [facility] [address] [id number] [place] [address]- 7083 Sep, [facility] [address] [id number] [place] [address]- 5221 Sep, [facility] [address] [id number] [place] [address]- 6669 Aug, [facility] [address] [id number] [place] [address]- 5888 Aug, [facility] [place] [facility] [address] [facility] [id number] [place] [address]- 4249 Aug, [facility] [address] [facility] [id number] [place] [address] Aug, [facility] [place] [facility] [address] [id number] [place] [address] Jul, [facility] [place] [facility] [address] [id number] [place] [address] Jul, [facility] [place] [facility] [address] [id number] [place] [address] Jun, [facility] [place] [facility] [address] [facility] [id number] [place] [address] Jun, [facility] [place] [facility] [address] [id number] [place] [address] Apr, [facility] [address] [id number] [place] [address] 20 Apr, 2013 [facility] [place] [facility] [address] [id number] [place] [address] 15 Apr, 2013 [facility] [address] [id number] [place] [address] 14 Apr, 2013 [facility] [place] [facility] [address] [id number] [place] [address] March, [facility] [address] [id number] [place] [address] March, [facility] [place] [facility] [address] [id number] [place] [address] March, [facility] [address] [id number] [place] [address] Jan, [facility] [address] [id number] [place] [address] Jan, [facility] [address] [id number] [place] [address] Dec, [facility] [place] [facility] [address] [id number] [place] [address] Dec, [facility] [place] [facility] [address] [id number] [place] [address] Dec, [facility] [place] [facility] [address] [id number] [place] [address] Dec, [facility] [place] [facility] [address] [id number] [place] [address] 2010 Dec, [facility] [place] [facility] [address] [id number] [place] [address] 07 Dec, 2012 [facility] [place] [facility] [address] [id number] [place] [address] Nov, [facility] [place] [facility] [address] [id number] [place] [address] Nov, [facility] [place] [facility] [address] [id number] [place] [id number] Oct, [facility] [place] [facility] [address] [id number] [place] [address] Oct, [facility] [place] [facility] [address] [id number] [place] [address] Oct, [facility] [place] [facility] [address] [id number] [place] [address] Oct, [facility] [place] [facility] [address] [id number] [place] [address] Oct, [facility] [place] [facility] [address] [id number] [place] [address] Oct, [facility] [place] [facility] [address] [id number] [place] [address] Oct, [facility] [place] [facility] [address] [id number] [place] [address] Oct, [facility] [place] [facility] [address] [id number] [place] [address] Oct, [facility] [place] [facility] [address] [facility] [id number] [place] [address] Oct, [facility] [place] [facility] [address] [id number] [place] [address] Sep, [facility] [place] [facility] [address] [id number], [place] [address] Sep, [facility] [place] [facility] [address] [id number] [place] [address] Sep, [facility] [place] [facility] [address] [facility] [id number] [place] [address] Sep, [facility] [place] [facility] [address] [facility] [id number] [place] [address] Aug, [facility] [place] [facility] [address] [id number] [place] [address] Aug, [facility] [place] [facility] [address] [id number] [place] [address] Aug, [facility] [place] [facility] [address] [id number] [place] [address] Jul, [facility] [place] [facility] [address] [id number] [place] [address], [place] [address] Jun, [facility] [place] [facility] [address] [id number] [place] [address] Jun, [facility] [place] [facility] [address] [id number] [place] [address], [place] [address] May, [facility] [place] [facility] [address] [id number] [place] [address] Apr, [facility] [place] [facility] [address] [id number] [place] [address] March, [facility] [place] [facility] [address] [id number] [place] [address] Jan, [facility] [place] [facility] [address] [id number] [place] [address] Dec, [facility] [place] [facility] [address] [id number] [place] [address] Dec, [facility] [place] [facility] [address] [id number] [place] [address] Nov, [facility] [place] [facility] [address] [id number] [place] [address] Oct, [facility] [place] [facility] [address] [id number] [place] [address] Oct, [facility] [place] [facility] [address] [id number] [place] [address] Sep, [facility] [place] [facility] [address] [id number], [place] [address] Aug, [facility] [address] [id number], [place] [address] Dec, [facility] [id number], [place] [address] Oct, [facility] [id number], [place] [address] Oct, [facility] [id number], [place] [address] Oct, [facility] [id number], [place] [address] Jun, [facility] [id number], [place] [address] Jun, [facility] [id number], [place] [address] Oct, [facility] [id number] [address] Sep, [facility] [id number] [address] Sep, [facility] [id number], [place] [address] Sep, [facility] [address] [id number], [place] [address] Aug, [facility] [id number] [address] Dec, IMMUNIZATIONS No Known Immunizations SOCIAL HISTORY Never Assessed REASON FOR VISIT Establish Care Pt in to transition care [facility] PLAN OF CARE Activity Details Follow Up 6 Months Reason:IBS and fasting labs VITAL SIGNS Height 60 in 2018-06-09 Weight 179.5 lbs 2018-06-09 Temperature 98.3 degrees Fahrenheit 2018-06-09 Heart Rate 80 bpm 2018-06-09 Respiratory Rate 18 2018-06-09 BMI 35.05 kg/m2 2018-06-09 Blood pressure systolic 118 mmHg 2018-06-09 Blood pressure diastolic 64 mmHg 2018-06-09 MEDICATIONS Medication Instructions Dosage Frequency Start Date End Date Duration Status Naproxen 500 mg Orally 2 times a day 1 tablet with food or milk as needed 12h 10 Jan, 2018 Active Levocetirizine Dihydrochloride 5 mg Orally Once a day 1 tablet in the evening 24h Jun, Oct, 30 day(s) Active Multivitamin Active Fluticasone Propionate 50 MCG/ACT Nasally Once a day 1 spray in each nostril 24h Dec, 14 days Active Prozac 10 MG Orally Once a day 1 capsule every day for one week then take 2 caps every day 24h May, 30 day(s) Active Welchol 625 MG Orally 3 times a day 1 tablets with meals 8h Jun, 90 days Active RESULTS No Results PROCEDURES No Known procedures [...]
--- OUTSIDE RECORDS SUMMARY | 2019-01-13 21:48 | XMS REPORT ---
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 09538834 Problem Elevated lymphocytes D72.820 Active 43094887 Problem Prediabetes R73.03 Active 969912596 Problem Chronic reflux esophagitis K21.0 Active 826474318 Problem Chronic fatigue R53.82 Active 61003679 Problem BMI 35.0-35.9,adult Z68.35 Active 455367422 Problem Major depressive disorder, recurrent episode, moderate F33.1 Active 074745083 Problem Seasonal allergic rhinitis due to pollen J30.1 Active 99918859 Problem WILMA (generalized anxiety disorder) F41.1 Active 11073115 Problem Severe episode of recurrent major depressive disorder, without 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 Active 11532093 Problem Carpal tunnel syndrome of right wrist G56.01 Active 09529637 Problem PTSD (post-traumatic stress disorder) F43.10 Active 50432060 ALLERGIES No Information ENCOUNTERS Encounter Location Date Diagnosis [facility] [id number] [address] Nov, [facility] [id number] [address] Aug, [facility] [id number] [place] [address] 65206- 1010 Aug, [facility] [id number] [address] Jul, Severe episode of recurrent major depressive disorder, without 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 ; WILMA (generalized anxiety disorder) F41.1 and PTSD (post-traumatic stress disorder) F43.10 [address] [address] Jun, [facility] [id number] [place] [address] 94619- 8007 Jun, Severe episode of recurrent major depressive disorder, without 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 ; WILMA (generalized anxiety disorder) F41.1 and PTSD (post-traumatic stress disorder) F43.10 [facility] [id number] [place] [address] 11540- 9265 Jun, Encounter to establish care Z76.89 ; Diarrhea, unspecified type R19.7 ; Carpal tunnel syndrome of right wrist G56.01 ; Tobacco use Z72.0 ; Major depressive disorder, recurrent episode, moderate F33.1 and Seasonal allergic rhinitis due to pollen J30.1 [facility] [id number] [place] [address] 22261- 4715 Jun, Severe episode of recurrent major depressive disorder, without 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 ; WILMA (generalized anxiety disorder) F41.1 and PTSD (post-traumatic stress disorder) F43.10 [facility] [id number] [place] [address] 60925- 0396 May, Severe episode of recurrent major depressive disorder, without 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 ; WILMA (generalized anxiety disorder) F41.1 and PTSD (post-traumatic stress disorder) F43.10 [facility] [id number] [place] [address] 10688- 2084 May, Scalp cyst L72.9 [facility] [id number] [place] [address] 12467- 0769 May, Severe episode of recurrent major depressive disorder, without 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 ; WILMA (generalized anxiety disorder) F41.1 and PTSD (post-traumatic stress disorder) F43.10 [address] [place] [address] 81827- 9689 Apr, Severe episode of recurrent major depressive disorder, without 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 ; WILMA (generalized anxiety disorder) F41.1 and PTSD (post-traumatic stress disorder) F43.10 [facility] [id number] [place] [address] 19819- 0074 March, Severe episode of recurrent major depressive disorder, without 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 ; WILMA (generalized anxiety disorder) F41.1 and PTSD (post-traumatic stress disorder) F43.10 [facility] [id number] [place] [address] 27095- 3359 March, Severe episode of recurrent major depressive disorder, without 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 ; WILMA (generalized anxiety disorder) F41.1 and PTSD (post-traumatic stress disorder) F43.10 [facility] [id number] [place] [address] 13325- 8151 March, [facility] [id number] [place] [address] 58302- 2069 Jan, Severe episode of recurrent major depressive disorder, without 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 ; WILMA (generalized anxiety disorder) F41.1 and PTSD (post-traumatic stress disorder) F43.10 [address] [id number] [place] [address] 28479- 7299 Jan, Carpal tunnel syndrome of right wrist G56.01 [facility] [id number] [place] [address] 38917- 2827 Jan, Severe episode of recurrent major depressive disorder, without 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 ; WILMA (generalized anxiety disorder) F41.1 and PTSD (post-traumatic stress disorder) F43.10 [id number] [place] [address] 34864- 1488 Dec, Severe episode of recurrent major depressive disorder, without 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 ; WILMA (generalized anxiety disorder) F41.1 and PTSD (post-traumatic stress disorder) F43.10 [address] [address] 3883 Dec, Severe episode of recurrent major depressive disorder, without 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 ; WILMA (generalized anxiety disorder) F41.1 and PTSD (post-traumatic stress disorder) F43.10 [address] [id number] [place] [address] Dec, Severe episode of recurrent major depressive disorder, without 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 ; WILMA (generalized anxiety disorder) F41.1 and PTSD (post-traumatic stress disorder) F43.10 [address]676[address]- 909 Dec, Severe episode of recurrent major depressive disorder, without 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 [address] [place] [address]- 058 Dec, Severe episode of recurrent major depressive disorder, without 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 ; WILMA (generalized anxiety disorder) F41.1 and PTSD (post-traumatic stress disorder) F43.10 [address] [facility] [address] 867663- 5940 Dec, Severe episode of recurrent major depressive disorder, without 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 ; WILMA (generalized anxiety disorder) F41.1 and PTSD (post-traumatic stress disorder) F43.10 [facility] [id number] [place] [address] Dec, Severe episode of recurrent major depressive disorder, without 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 and Anxiety state, unspecified F41.1 [facility] [id number] [place] [address] 3360 Dec, Severe episode of recurrent major depressive disorder, without 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 and Anxiety state, unspecified F41.1 [facility] [id number] [place] [address] [address] Nov, Depression, major, recurrent, moderate F33.1 and Anxiety state, unspecified F41.1 [facility] [id number] [place] [address] 16870- 860 Nov, Depression, major, recurrent, moderate F33.1 and Anxiety state, unspecified F41.1 [facility] [id number] [place] [address]991 Oct, Depression, major, recurrent, moderate F33.1 and Anxiety state, unspecified F41.1 [facility] [id number] [place] [address] Oct, Depression, major, recurrent, moderate F33.1 and Post- cholecystectomy syndrome K91.5 [facility] [id number] [place] [address] 38403- 6930 Oct, Depression, major, recurrent, moderate F33.1 and Anxiety state, unspecified F41.1 [facility] [id number] [place] [address] 00065- 7138 Sep, Depression, major, recurrent, moderate F33.1 and Anxiety state, unspecified F41.1 [facility] [id number] [place] [address] 82693- 4983 Sep, Depression, major, recurrent, moderate F33.1 and Anxiety state, unspecified F41.1 [facility] [id number] [place] [address] 60425- 7076 Sep, Depression, major, recurrent, moderate F33.1 and Anxiety state, unspecified F41.1 [facility] [id number] [place] [address] 96105- 0578 Sep, Diarrhea, unspecified type R19.7 [facility] [id number] [place] [address] 88496- 5082 Aug, Depression, major, recurrent, moderate F33.1 and Anxiety state, unspecified F41.1 [facility] [id number] [place] [address] Aug, Depression, major, recurrent, moderate F33.1 and Anxiety state, unspecified F41.1 [facility] [id number] [place] [address] 75282- 1614 Jul, Depression, major, recurrent, moderate F33.1 and Anxiety state, unspecified F41.1 [facility] [address] [place]- 5159 Jun, Depression, major, recurrent, moderate F33.1 and Anxiety state, unspecified F41.1 [address] 9[address]01- 5163 Jun, Generalized abdominal pain R10.84 ; Diarrhea, unspecified type R19.7 ; Acute cystitis without hematuria N30.00 ; Abdominal bloating R14.0 and Elevated blood pressure reading R03.0 [address] [address] 73080- 3264 Jun, Depression, major, recurrent, moderate F33.1 and Anxiety state, unspecified F41.1 [address] 61749- 9585 May, Depression, major, recurrent, moderate F33.1 and Anxiety state, unspecified F41.1 [address] 02762- 6742 May, Elevated lymphocytes D72.820 [address] 53129- 5406 May, Elevated lymphocytes D72.820 [address] 83210- 1545 May, BMI 35.0-35.9,adult Z68.35 ; Other fatigue R53.83 ; Pelvic pain R10.2 ; Tobacco use Z72.0 and Chronic reflux esophagitis K21.0 [address] [id number]- 5319 Apr, [address] [facility] [address] 43702- 7648 Apr, Depression, major, recurrent, moderate F33.1 and Anxiety state, unspecified F41.1 [facility] [address], [place] [address]- 2997 14 Apr, 2017 Depression, major, recurrent, moderate F33.1 and Anxiety state, unspecified F41.1 [facility] [address], [place] [address]- 9214 Apr, [facility] [id number] [place] [address] 42794- 2418 March, Major depressive disorder, recurrent episode, mild F33.0 and Anxiety state, unspecified F41.1 [facility] [address] [place] [address] 04430 -9048 March, Sore throat J02.9 and Submandibular lymphadenopathy R59.0 [facility] [address], [place] [address]- 7534 Dec, Major depressive disorder, recurrent episode, mild F33.0 and Anxiety state, unspecified F41.1 [address] [address]- 5956 Dec, Major depressive disorder, recurrent episode, mild F33.0 and Anxiety state, unspecified F41.1 [facility] [address] [address]- 0068 Dec, Major depressive disorder, recurrent episode, mild F33.0 and Anxiety state, unspecified F41.1 [facility] [address] [address]- 3350 Sep, Major depressive disorder, recurrent episode, mild F33.0 and Anxiety state, unspecified F41.1 [address] [address]- 2985 Sep, Major depressive disorder, recurrent episode, moderate F33.1 and Anxiety state, unspecified F41.1 [address], [place] [address]- 9781 Aug, Major depressive disorder, recurrent episode, moderate F33.1 and Anxiety state, unspecified F41.1 [address] [address]- 0012 Aug, Major depressive disorder, recurrent episode, moderate F33.1 and Anxiety state, unspecified F41.1 [address] [address]- 4801 Jul, Major depressive disorder, recurrent episode, moderate F33.1 and Anxiety state, unspecified F41.1 [address] [id number] [place] [address] 25167- 5041 Jul, Major depressive disorder, recurrent episode, moderate F33.1 and Anxiety state, unspecified F41.1 [address] [id number] [place] [address] 80346- 9009 Jun, Major depressive disorder, recurrent episode, moderate F33.1 and Anxiety state, unspecified F41.1 [facility] [id number] [place] [address] 75137- 8057 Jun, Major depressive disorder, recurrent episode, moderate F33.1 and Anxiety state, unspecified F41.1 [address] [place] [address] 69877- 7702 May, Major depressive disorder, recurrent episode, moderate F33.1 and Anxiety state, unspecified F41.1 [address] [place] [address] 07200- 5119 Apr, Major depressive disorder, recurrent episode, moderate F33.1 and Anxiety state, unspecified F41.1 [address] [facility] [place] [address] 24058- 5730 Apr, Major depressive disorder, recurrent episode, moderate F33.1 and Anxiety state, unspecified F41.1 [address] [address] [address]- 7455 Dec, Major depressive disorder, recurrent episode, moderate F33.1 and Anxiety state, unspecified F41.1 [facility] [address] [place] [address] 05425- 3836 Dec, Major depressive disorder, recurrent episode, moderate F33.1 and Anxiety state, unspecified F41.1 [facility] [address] [place] [address] 28514 -7788 Dec, Pharyngitis J02.9 and Acute frontal sinusitis J01.10 [facility] [id number] [place] [address] 90591- 6067 Nov, Bilateral occipital neuralgia M54.81 and Neck muscle spasm M62.838 [address] [id number] [place] [address] 95101- 9311 Nov, Major depressive disorder, recurrent episode, moderate F33.1 and Anxiety state, unspecified F41.1 [address] [id number] [place] [address] 09502- 9644 Sep, Major depressive disorder, recurrent episode, moderate F33.1 and Anxiety state, unspecified F41.1 [address] [id number] [place] [address] 91214- 2720 Aug, Major depressive disorder, recurrent episode, moderate F33.1 and Anxiety state, unspecified F41.1 [address] [id number] [place] [address] 40604- 3658 Jul, Abdominal pain 789.00 ; Hematochezia 578.1 and Weight loss 783.21 [facility] [id number] [place] [address] 66961- 5381 May, [address] 07657- 2504 March, [address] [id number] [place] [address] 13420- 6502 March, [address] [id number] [place] [address] 02229- 4586 Jan, [facility] [place] [facility] [address] [id number] [place] [address]- 4274 13 Jan, 2014 [facility] [place] [facility] [address] [id number] [place] [address]- 1083 Dec, 2014 [facility] [place] [facility] [address] [id number] [place] [address]- 4076 Dec, 2014 [facility] [place] [facility] [address] [id number] [place] [address]- 6106 Dec, 2014 [facility] [place] [facility] [address] [id number] [place] [address]- 9257 Dec, 2014 [facility] [place] [facility] [address] [id number] [place] [address]- 3383 Dec, 2014 [facility] [place] [facility] [address] [id number] [place] [address]- 7278 Dec, 2014 [facility] [place] [facility] [address] [id number] [place] [address]- 1593 Jul, 2013 [facility] [place] [facility] [address] [id number] [place] [address]- 2343 Jul, 2013 [facility] [place] [facility] [address] [id number] [place] [address]- 5650 Jul, 2013 [facility] [place] [facility] [address] [id number] [place] [address]- 8980 11 Jul, 2013 [facility] [place] [facility] [address] [id number] [address]- 2542 10 Jul, 2013 [facility] [place] [facility] [address] [id number] [place] [address]- 2547 10 Jul, 2013 [facility] [place] [facility] [address] [id number] [place] [address]- 4345 09 Jul, 2013 [facility] [place] [facility] [address] [id number] [place] [address]- 5480 09 Jul, 2013 [facility] [place] [facility] [address] [id number] [place] [address]- 5534 Jul, [facility] [address] [id number] [place] [address]- 3311 Jul, [facility] [place] [facility] [address] [id number] [place] [address]- 7577 Jul, [facility] [place] [facility] [address] [id number] [place] [address]- 2594 Jul, [facility] [place] [facility] [address] [id number] [place] [address]- 8935 May, [facility] [place] [facility] [address] [id number] [place] [address]- 6441 May, [facility] [place] [facility] [address] [id number] [place] [address]- 0324 Apr, [facility] [place] [facility] [address] [id number] [place] [address]- 0002 Apr, [facility] [address] [id number] [place] [address]- 4412 Apr, [facility] [place] [facility] [address] [id number] [place] [address]- 9851 Apr, [facility] [address] [id number] [place] [address]- 3232 March, [facility] [place] [facility] [address] [id number] [place] [address]- 4316 March, [facility] [place] [facility] [address] [id number] [place] [address]- 3380 Jan, [facility] [place] [facility] [address] [id number] [place] [address]- 1753 Jan, [facility] [place] [facility] [address] [id number] [place] [address]- 1047 Jan, [facility] [place] [facility] [address] [id number] [place] [address]- 2447 Jan, [facility] [place] [facility] [address] [id number] [place] [address]- 3759 Dec, [facility] [place] [facility] [address] [id number] [place] [address]- 8587 25 Dec, 2013 [facility] [place] [facility] [address] [id number] [place] [address]- 9080 18 Dec, 2013 [facility] [place] [facility] [address] [id number] [place] [address]- 8177 18 Dec, 2013 [facility] [place] [facility] [address] [id number] [place] [address]- 7938 15 Dec, 2013 [facility] [place] [facility] [address] [id number] [place] [address]- 2278 14 Dec, 2013 [facility] [place] [facility] [address] [id number] [place] [address]- 0022 13 Dec, 2013 [facility] [place] [facility] [address] [id number] [place] [address]- 2661 13 Dec, 2013 [facility] [place] [facility] [address] [id number] [place] [address]- 0533 12 Dec, 2013 [facility] [place] [facility] [address] [id number] [place] [address]- 8294 Dec, [facility] [place] [facility] [address] [id number] [place] [address]- 7335 05 Dec, 2013 [facility] [place] [facility] [address] [id number] [place] [address]- 7778 05 Dec, 2013 [facility] [place] [facility] [address] [id number] [place] [address]- 7994 Dec, [facility] [place] [facility] [address] [id number] [place] [address] 6165 Dec, [facility] [place] [facility] [address] [id number] [place] [address]- 5530 Dec, [facility] [place] [facility] [address] [id number] [address]- 2154 Dec, [facility] [address] [id number] [place] [address]- 9246 Dec, [facility] [place] [facility] [address] [id number] [place] [address]- 6923 Dec, [facility] [place] [facility] [address] [id number] [place] [address]- 7005 Nov, [facility] [place] [facility] [address] [id number] [place] [address]- 7476 Nov, [facility] [place] [facility] [address] [id number] [place] [address]- 5986 Nov, [facility] [place] [facility] [address] [id number] [place] [address]- 6549 Nov, [facility] [address] [id number] [place] [address]- 0280 Nov, [facility] [place] [facility] [address] [id number] [place] [address]- 5089 Nov, [facility] [address] [id number] [place] [address]- 9862 Nov, [facility] [address] [facility] [id number] [place] [address]- 1524 Nov, [facility] [place] [facility] [address] [id number] [place] [address]- 9335 Oct, [facility] [place] [facility] [address] [id number] [place] [address]- 2865 Oct, [facility] [place] [facility] [address] [id number] [place] [address]- 8524 Oct, [facility] [place] [facility] [address] [id number] [place] [address]- 9543 Oct, [facility] [place] [facility] [address] [id number] [place] [address]- 2691 Oct, [facility] [place] [facility] [address] [id number] [place] [address]- 5754 Oct, [facility] [place] [facility] [address] [id number] [place] [address]- 8356 Sep, [facility] [place] [facility] [address] [id number] [place] [address]- 4468 Sep, [facility] [place] [facility] [address] [id number] [place] [address]- 9807 Sep, [facility] [place] [facility] [address] [id number] [place] [address]- 0863 Sep, [facility] [place] [facility] [address] [id number] [place] [address]- 3754 Aug, [facility] [place] [facility] [address] [id number] [place] [address]- 7451 Aug, [facility] [place] [facility] [address] [id number] [place] [address]- 2982 Aug, [facility] [place] [facility] [address] [id number] [place] 1055 Aug, [facility] [place] [facility] [address] [id number] [place] [address]- 7320 Jul, [facility] [place] [facility] [address] [id number] [place] [address]- 5872 Jul, [facility] [place] [facility] [address] [id number] [place] [address]- 8386 Jun, [facility] [place] [facility] [address] [id number] [place] [address]- 5284 Jun, [facility] [place] [facility] [address] [id number] [place] [address] Apr, [facility] [place] [facility] [address] [id number] [place] [address] Apr, [facility] [place] [facility] [address] [id number] [place] [address] 15 Apr, 2013 [facility] [address] [id number] [place] [address] 14 Apr, 2013 [facility] [address] [id number] [place] [address] March, [facility] [address] [id number] [place] [address] March, [facility] [address] [id number] [place] [address] March, [facility] [address] [id number] [place] [address] Jan, [facility] [address] [id number] [place] [address] Jan, [facility] [address] [id number] [place] [address] Dec, [facility] [place] [facility] [address] [id number] [place] [address] Dec, [facility] [address] [id number] [place] [address] Dec, [facility] [place] [facility] [address] [id number] [place] [address] Dec, [facility] [address] [id number] [place] [address] Dec, [facility] [place] [facility] [address] [id number] [place] [id number] Dec, [facility] [place] [facility] [address] [id number] [place] [address] Nov, [facility] [place] [facility] [address] [id number] [place] [address] Nov, [facility] [place] [facility] [address] [id number] [place] [address] Oct, [facility] [place] [facility] [address] [id number] [place] [address] Oct, [facility] [address] [id number] [place] [address] Oct, [facility] [place] [facility] [address] [id number] [place] [address] Oct, [facility] [address] [id number] [place] [address] Oct, [facility] [place] [facility] [address] [id number] [place] [address] Oct, [facility] [address] [id number] [place] [address] Oct, [facility] [place] [facility] [address] [id number] [place] [address] Oct, [facility] [place] [facility] [address] [id number] [place] [address] Oct, [facility] [address] [id number] [place] [address] Oct, [facility] [place] [facility] [address] [id number] [place] [address] Sep, [facility] [address] [id number] [place] [address] Sep, [facility] [place] [facility] [address] [id number] [place] [address] Sep, [facility] [place] [facility] [address] [id number] [place] [address] Sep, [facility] [place] [facility] [address] [id number] [place] [address] Aug, [facility] [place] [facility] [address] [id number] [place] [address] Aug, [facility] [place] [facility] [address] [id number] [place] [address] Aug, [facility] [place] [facility] [address] [id number] [place] [address] Jul, [facility] [place] [facility] [address] [id number] [place] [address] Jun, [facility] [place] [facility] [address] [id number] [place] [address] Jun, [facility] [place] [facility] [address] [id number] [place] [address] May, [facility] [place] [facility] [address] [id number] [place] [address] Apr, [facility] [place] [facility] [address] [id number] [place] [address] March, [facility] [place] [facility] [address] [id number] [place] [address] Jan, [facility] [place] [facility] [address] [id number] [place] [address] Dec, [facility] [place] [facility] [address] [id number] [place] [address] Dec, [facility] [place] [facility] [address] [facility] [id number] [place] [address] Nov, [facility] [place] [facility] [address] [id number] [place] [address] Oct, [facility] [place] [facility] [address] [id number] [address] Oct, [facility] [place] [facility] [address] [id number] [place] [address] Sep, [facility] [place] [facility] [address] [id number] [place] [address] Aug, [facility] [place] [facility] [address] [id number] [place] [address] 17 Dec, 2010 [facility] [place] [facility] [address] [id number] [address] Oct, [facility] [id number] [address] Oct, [facility] [id number] [address] Oct, [facility] [id number] [address] Jun, [facility] [id number] [address] Jun, [facility] [id number] [place] [address] Oct, [facility] [id number] [address] [address] Sep, [facility] [id number] [place] [address] Sep, [facility] [id number] [address] [address] Sep, [facility] [id number] [address] [address] Aug, [facility] [address] [id number] [address] Dec, IMMUNIZATIONS No Known Immunizations SOCIAL HISTORY Never Assessed REASON FOR VISIT Urgent return call PLAN OF CARE VITAL SIGNS MEDICATIONS Unknown [...] hysterectomy partial. Hyst due to uncontrolled bleeding 2009 Surgical History cholecystectomy 2014 Surgical History Fibroid removal Hospitalization History inpatient treatment Mirtha SMITH 21 years old Hospitalization History surgeries
--- OUTSIDE RECORDS SUMMARY | 2019-01-13 21:49 | XMS REPORT ---
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 29779570 Problem Elevated lymphocytes D72.820 Active 12060765 Problem Prediabetes R73.03 Active 356615828 Problem Chronic reflux esophagitis K21.0 Active 960707611 Problem Chronic fatigue R53.82 Active 02031666 Problem BMI 35.0-35.9,adult Z68.35 Active 249584787 Problem Major depressive disorder, recurrent episode, moderate F33.1 Active 376998403 Problem Seasonal allergic rhinitis due to pollen J30.1 Active 06413971 Problem WILMA (generalized anxiety disorder) F41.1 Active 11373766 Problem Severe episode of recurrent major depressive disorder, without 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 Active 85912190 Problem Carpal tunnel syndrome of right wrist G56.01 Active 41252720 Problem PTSD (post-traumatic stress disorder) F43.10 Active [id number] ALLERGIES No Information ENCOUNTERS Encounter Location Date Diagnosis [facility] [id number] [address] Nov, [facility] [id number] [place] [address] 83841- 7127 Aug, [facility] [id number] [place] [address] 84255- 1404 Aug, [facility] [id number], [place] [address] Jul, Severe episode of recurrent major depressive disorder, without 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 ; WILMA (generalized anxiety disorder) F41.1 and PTSD (post-traumatic stress disorder) F43.10 [facility] [id number] [place] [address] 14702- 7286 Jun, [facility] [address] [address] Jun, Severe episode of recurrent major depressive disorder, without 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 ; WILMA (generalized anxiety disorder) F41.1 and PTSD (post-traumatic stress disorder) F43.10 [facility] [id number] [place] [address] 80924- 4869 08 Jun, 2018 Encounter to establish care Z76.89 ; Diarrhea, unspecified type R19.7 ; Carpal tunnel syndrome of right wrist G56.01 ; Tobacco use Z72.0 ; Major depressive disorder, recurrent episode, moderate F33.1 and Seasonal allergic rhinitis due to pollen J30.[address] [address]- [address] Jun, Severe episode of recurrent major depressive disorder, without 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 ; WILMA (generalized anxiety disorder) F41.1 and PTSD (post-traumatic stress disorder) F43.10 [facility] [id number] [place] [address] 88754- 7342 May, Severe episode of recurrent major depressive disorder, without 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 ; WILMA (generalized anxiety disorder) F41.1 and PTSD (post-traumatic stress disorder) F43.10 [facility] [id number] [place] [address] 40741- 3301 May, Scalp cyst L72.9 [facility] [id number] [place] [address] 68432- 6888 May, Severe episode of recurrent major depressive disorder, without 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 ; WILMA (generalized anxiety disorder) F41.1 and PTSD (post-traumatic stress disorder) F43.10 [facility] [id number] [place] [address] 18009- 5338 Apr, Severe episode of recurrent major depressive disorder, without 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 ; WILMA (generalized anxiety disorder) F41.1 and PTSD (post-traumatic stress disorder) F43.10 [facility] [id number] [place] [address] 90789- 0743 March, Severe episode of recurrent major depressive disorder, without 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 ; WILMA (generalized anxiety disorder) F41.1 and PTSD (post-traumatic stress disorder) F43.10 [facility] [id number] [place] [address] 28277- 6338 March, Severe episode of recurrent major depressive disorder, without 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 ; WILMA (generalized anxiety disorder) F41.1 and PTSD (post-traumatic stress disorder) F43.10 [facility] [id number] [place] [address] 74272- 0562 March, [facility] [id number] [place] [address] 16346- 7901 Jan, Severe episode of recurrent major depressive disorder, without 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 ; WILMA (generalized anxiety disorder) F41.1 and PTSD (post-traumatic stress disorder) F43.10 [facility] [id number] [place] [address] 32218- 7436 Jan, Carpal tunnel syndrome of right wrist G56.01 [facility] [address], [place] [address] 115[address] Jan, Severe episode of recurrent major depressive disorder, without 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 ; WILMA (generalized anxiety disorder) F41.1 and PTSD (post-traumatic stress disorder) F43.10 [facility] [address] [address], [place] [address] 2[address] Dec, Severe episode of recurrent major depressive disorder, without 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 ; WILMA (generalized anxiety disorder) F41.1 and PTSD (post-traumatic stress disorder) F43.10 [facility] [address] [address] [place] [address] 6868 Dec, Severe episode of recurrent major depressive disorder, without 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 ; WILMA (generalized anxiety disorder) F41.1 and PTSD (post-traumatic stress disorder) F43.10 [facility] [id number] [place] [id number] [address] Dec, Severe episode of recurrent major depressive disorder, without 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 ; WILMA (generalized anxiety disorder) F41.1 and PTSD (post-traumatic stress disorder) F43.10 [facility] [id number] [place] [address] 51829- 5155 Dec, Severe episode of recurrent major depressive disorder, without 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 [facility] [id number] [place] [address] Dec, Severe episode of recurrent major depressive disorder, without 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 ; WILMA (generalized anxiety disorder) F41.1 and PTSD (post-traumatic stress disorder) F43.10 [facility] [id number] [place] [address] 23858- 5195 Dec, Severe episode of recurrent major depressive disorder, without 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 ; WILMA (generalized anxiety disorder) F41.1 and PTSD (post-traumatic stress disorder) F43.10 [facility] [id number] [place] [address] 25508- 9716 Dec, Severe episode of recurrent major depressive disorder, without 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 and Anxiety state, unspecified F41.1 [facility] [id number] [place] [address] 26718- 2756 Dec, Severe episode of recurrent major depressive disorder, without 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 and Anxiety state, unspecified F41.1 [facility] [id number] [place] [id number] [address] Nov, Depression, major, recurrent, moderate F33.1 and Anxiety state, unspecified F41.1 [facility] [id number] [place] [address] 97696- 1217 Nov, Depression, major, recurrent, moderate F33.1 and Anxiety state, unspecified F41.1 [facility] [id number] [place] [address] 28778- 5047 Oct, Depression, major, recurrent, moderate F33.1 and Anxiety state, unspecified F41.1 [facility] [id number] [place] [address] 38653- 7594 Oct, Depression, major, recurrent, moderate F33.1 and Post- cholecystectomy syndrome K91.5 [facility] [id number] [place] [address] 93607- 4442 Oct, Depression, major, recurrent, moderate F33.1 and Anxiety state, unspecified F41.1 [facility] [id number] [place] [address] 75450- 2859 Sep, Depression, major, recurrent, moderate F33.1 and Anxiety state, unspecified F41.1 [facility] [id number] [place] [address] 82423- 9105 Sep, Depression, major, recurrent, moderate F33.1 and Anxiety state, unspecified F41.1 [facility] [id number] [place] [address] 7680 Sep, Depression, major, recurrent, moderate F33.1 and Anxiety state, unspecified F41.1 [facility] [id number] [place] [address] 44462- 9550 Sep, Diarrhea, unspecified type R19.7 [facility] [id number] [place] [address] 27769- 0024 Aug, Depression, major, recurrent, moderate F33.1 and Anxiety state, unspecified F41.1 [facility] [id number] [place] [address] [address] Aug, Depression, major, recurrent, moderate F33.1 and Anxiety state, unspecified F41.1 [facility] [id number] [place] [address] [address]39 Jul, Depression, major, recurrent, moderate F33.1 and Anxiety state, unspecified F41.1 [facility] [id number] [place] [address] 5926 Jun, Depression, major, recurrent, moderate F33.1 and Anxiety state, unspecified F41.1 [facility] [address] [id number]- [address]144 Jun, Generalized abdominal pain R10.84 ; Diarrhea, unspecified type R19.7 ; Acute cystitis without hematuria N30.00 ; Abdominal bloating R14.0 and Elevated blood pressure reading R03.0 [place] [address] 410964- 0715 Jun, Depression, major, recurrent, moderate F33.1 and Anxiety state, unspecified F41.1 [facility] [address] 36957- 8620 May, Depression, major, recurrent, moderate F33.1 and Anxiety state, unspecified F41.1 [facility] [address] 23772- 6156 May, Elevated lymphocytes D72.820 [facility] [address] 86310- 7833 May, Elevated lymphocytes D72.820 [facility] [facility] [id number] [place] [address] 3958 May, BMI 35.0-35.9,adult Z68.35 ; Other fatigue R53.83 ; Pelvic pain R10.2 ; Tobacco use Z72.0 and Chronic reflux esophagitis K21.0 [facility] [facility] [id number] [place] [address] 7966 Apr, [facility] [id number] [place] [address] 65263- 0708 Apr, Depression, major, recurrent, moderate F33.1 and Anxiety state, unspecified F41.1 [facility] [address], [place] [address]- 8299 Apr, Depression, major, recurrent, moderate F33.1 and Anxiety state, unspecified F41.1 [facility] [id number] [place] [address] 42037- 4342 Apr, [facility] [id number] [place] [address] 46012- 8001 March, Major depressive disorder, recurrent episode, mild F33.0 and Anxiety state, unspecified F41.1 [facility] [id number] [place] [address] 83442 -9978 March, Sore throat J02.9 and Submandibular lymphadenopathy R59.0 [facility] [facility] [id number] [place] [address] 44850- 5452 Dec, Major depressive disorder, recurrent episode, mild F33.0 and Anxiety state, unspecified F41.1 [facility] [id number] [place] [address] 82833- 0212 Dec, Major depressive disorder, recurrent episode, mild F33.0 and Anxiety state, unspecified F41.1 [place] [address] [address] [place] [address] 32549- 1342 Dec, Major depressive disorder, recurrent episode, mild F33.0 and Anxiety state, unspecified F41.1 [facility] [place] [address] [place] [address] 60038- 5060 Sep, Major depressive disorder, recurrent episode, mild F33.0 and Anxiety state, unspecified F41.1 [facility] [id number] [place] [address] 72004- 6532 Sep, Major depressive disorder, recurrent episode, moderate F33.1 and Anxiety state, unspecified F41.1 [facility] [address] [place] [address] 34507- 9039 Aug, Major depressive disorder, recurrent episode, moderate F33.1 and Anxiety state, unspecified F41.1 [facility] [address], [place] [address]- 4337 Aug, Major depressive disorder, recurrent episode, moderate F33.1 and Anxiety state, unspecified F41.1 [facility] [address], [place] [address]- 0073 Jul, Major depressive disorder, recurrent episode, moderate F33.1 and Anxiety state, unspecified F41.1 [place] [address] [place] [address] 12314- 6816 Jul, Major depressive disorder, recurrent episode, moderate F33.1 and Anxiety state, unspecified F41.1 [facility] [place] [address] [place] [address] 81782- 0201 Jun, Major depressive disorder, recurrent episode, moderate F33.1 and Anxiety state, unspecified F41.1 [facility] [address] [place] [address] 39185- 6565 Jun, Major depressive disorder, recurrent episode, moderate F33.1 and Anxiety state, unspecified F41.1 [facility] [address], [place] [address]- 0129 May, Major depressive disorder, recurrent episode, moderate F33.1 and Anxiety state, unspecified F41.1 [facility] [address], [place] [address]- 3344 Apr, Major depressive disorder, recurrent episode, moderate F33.1 and Anxiety state, unspecified F41.1 [facility] [address], [place] [address]- 3903 Apr, Major depressive disorder, recurrent episode, moderate F33.1 and Anxiety state, unspecified F41.1 [facility] [address], [place] [address]- 9625 Dec, Major depressive disorder, recurrent episode, moderate F33.1 and Anxiety state, unspecified F41.1 [facility] [id number] [place] [address] 36661- 5456 Dec, Major depressive disorder, recurrent episode, moderate F33.1 and Anxiety state, unspecified F41.1 [facility] [id number] [place] [address] 92949 -9653 Dec, Pharyngitis J02.9 and Acute frontal sinusitis J01.10 [facility] [id number] [place] [address] 07918- 7392 Nov, Bilateral occipital neuralgia M54.81 and Neck muscle spasm M62.838 [facility] [id number] [place] [address] 73886- 2759 Nov, Major depressive disorder, recurrent episode, moderate F33.1 and Anxiety state, unspecified F41.1 [facility] [id number] [place] [address] 58906- 4337 Sep, Major depressive disorder, recurrent episode, moderate F33.1 and Anxiety state, unspecified F41.1 [facility] [id number] [place] [address] 21744- 9970 Aug, Major depressive disorder, recurrent episode, moderate F33.1 and Anxiety state, unspecified F41.1 [facility] [id number] [place] [address] 82551- 5052 Jul, Abdominal pain 789.00 ; Hematochezia 578.1 and Weight loss 783.21 [facility] [place] [id number] [place] [address] 12703- 5412 May, [facility] [id number] [place] [address] 82421- 0808 March, [facility] [id number] [place] [address] 70074- 1034 March, [facility] [id number] [place] [address] 20213- 2397 14 Jan, 2014 [facility] [place] [facility] [address] [id number] [place] [address]- 7497 13 Jan, 2014 [facility] [place] [facility] [address] [id number] [place] [address]- 0171 Dec, 2014 [facility] [place] [facility] [address] [facility] [id number] [place] [address]- 3917 Dec, 2014 [facility] [place] [facility] [address] [id number] [place] [address]- 7807 Dec, 2014 [facility] [place] [facility] [address] [id number] [place] [address]- 1552 Dec, 2014 [facility] [place] [facility] [address] [facility] [id number] [place] [address]- 8177 Dec, 2014 [facility] [place] [facility] [address] [id number] [place] [address]- 6583 Dec, 2014 [facility] [place] [facility] [address] [id number] [place] [address]- 3062 Jul, 2013 [facility] [place] [facility] [address] [id number] [place] [address]- 2290 Jul, 2013 [facility] [place] [facility] [address] [facility] [id number] [place] [address]- 2951 Jul, 2013 [facility] [place] [facility] [address] [id number] [place] [address] 2541 11 Jul, 2013 [facility] [place] [facility] [address] [id number] [place] [address]- 2541 10 Jul, 2013 [facility] [place] [facility] [address] [id number] [place] [address]- 2543 10 Jul, 2013 [facility] [place] [facility] [address] [facility] [id number] [place] [address]- 2541 09 Jul, 2013 [facility] [place] [facility] [address] [facility] [id number] [place] [address]- 2540 09 Jul, 2013 [facility] [place] [facility] [address] [id number] [place] [address]- 3375 Jul, 2013 [facility] [place] [facility] [address] [id number] [place] [address]- 6072 Jul, [facility] [place] [facility] [address] [id number] [place] [address]- 9645 Jul, [facility] [place] [facility] [address] [id number] [place] [address]- 1965 Jul, [facility] [place] [facility] [address] [id number] [place] [address]- 5430 May, [facility] [place] [facility] [address] [id number] [place] [address]- 7874 May, [facility] [place] [facility] [address] [id number] [place] [address]- 2221 Apr, [facility] [place] [facility] [address] [id number] [place] [address]- 8113 Apr, [facility] [place] [facility] [address] [id number] [place] [address]- 6601 Apr, [facility] [place] [facility] [address] [id number] [place] [address]- 9904 Apr, [facility] [place] [facility] [address] [id number] [place] [address]- 8693 March, [facility] [place] [facility] [address] [id number] [place] [address]- 1349 March, [facility] [place] [facility] [address] [id number] [place] [address]- 1052 Jan, [facility] [place] [facility] [address] [id number] [place] [address]- 7223 Jan, [facility] [place] [facility] [address] [id number] [place] [address]- 7047 Jan, [facility] [place] [facility] [address] [id number] [place] [address]- 0788 Jan, [facility] [place] [facility] [address] [id number] [place] [address]- 3912 Dec, [facility] [place] [facility] [address] [id number] [place] [address]- 8503 25 Dec, 2013 [facility] [place] [facility] [address] [id number] [place] [address]- 6935 18 Dec, 2013 [facility] [place] [facility] [address] [id number] [place] [address]- 7529 18 Dec, 2013 [facility] [place] [facility] [address] [id number] [place] [address]- 9449 15 Dec, 2013 [facility] [place] [facility] [address] [id number] [place] [address]- 9482 14 Dec, 2013 [facility] [place] [facility] [address] [id number] [place] [address]- 1194 13 Dec, 2013 [facility] [place] [facility] [address] [id number] [place] [address]- 0767 13 Dec, 2013 [facility] [place] [facility] [address] [id number] [place] [address]- 7179 12 Dec, 2013 [facility] [place] [facility] [address] [id number] [place] [address]- 9966 Dec, [facility] [place] [facility] [address] [id number] [place] [address]- 6785 05 Dec, 2013 [facility] [place] [facility] [address] [id number] [place] [address]- 5217 05 Dec, 2013 [facility] [place] [facility] [address] [id number] [place] [address]- 7260 Dec, [facility] [place] [facility] [address] [id number] [place] [address]- 0002 Dec, [facility] [place] [facility] [address] [id number] [place] [address]- 7610 Dec, [facility] [place] [facility] [address] [id number] [place] [address]- 7333 Dec, [facility] [address] [id number] [place] [address]- 6534 Dec, [facility] [address] [id number] [place] [address]- 4546 Dec, [facility] [address] [id number] [place] [address]- 4143 Nov, [facility] [address] [id number] [place] [address]- 0950 Nov, [facility] [address] [id number] [place] [address]- 4414 Nov, [facility] [address] [id number] [place] [address]- 5909 Nov, [facility] [address] [id number] [place] [address]- 1370 Nov, [facility] [address] [id number] [place] [address]- 8300 Nov, [facility] [address] [id number] [place] [address]- 6009 Nov, [facility] [address] [id number] [place] [address]- 9439 Nov, [facility] [address] [id number] [place] [address]- 4119 Oct, [facility] [address] [id number] [place] [address]- 8962 Oct, [facility] [place] [facility] [address] [id number] [place] [address]- 0025 Oct, [facility] [place] [facility] [address] [id number] [place] [address]- 3646 Oct, [facility] [address] [id number] [place] [address]- 7911 Oct, [facility] [place] [facility] [address] [id number] [place] [address] 2540 Oct, [facility] [place] [facility] [address] [id number] [place] [id number] Sep, [facility] [place] [facility] [address] [id number] [place] [address] Sep, [facility] [place] [facility] [address] [id number] [place] [address] Sep, [facility] [place] [facility] [address] [id number] [place] [address] Sep, [facility] [place] [facility] [address] [id number] [place] [address] Aug, [facility] [place] [facility] [address] [id number] [place] [address] Aug, [facility] [place] [facility] [address] [id number] [place] [address] Aug, [facility] [place] [facility] [address] [id number] [place] [address] Aug, [facility] [place] [facility] [address] [id number] [place] [address] Jul, [facility] [place] [facility] [address] [id number] [place] [address] Jul, [facility] [place] [facility] [address] [id number], [place] [address] Jun, [facility] [place] [facility] [address] [id number] [place] [address] Jun, [facility] [place] [facility] [address] [id number] [place] [address] Apr, [facility] [place] [facility] [address] [id number], [place] [address] Apr, [facility] [place] [facility] [address] [id number], [place] [address] Apr, 2013 [facility] [address] [id number] [place] [address] Apr, [facility] [address] [id number] [place] [address] March, [facility] [address] [id number] [place] [address] March, [facility] [address] [id number] [place] [address] March, [facility] [address] [id number] [place] [address] Jan, [facility] [address] [id number] [place] [address] Jan, [facility] [address] [facility] [id number] [place] [address] Dec, [facility] [address] [id number] [place] [address] Dec, [facility] [address] [id number] [place] [address] Dec, [facility] [address] [id number] [place] [address] 28 Dec, 2012 [facility] [address] [id number], [place] [address] Dec, [facility] [address] [id number], [place] [address] Dec, [facility] [address] [id number] [place] [address] Nov, [facility] [address] [id number] [place] [address] Nov, [facility] [address] [facility] [id number], [place] [address] Oct, [facility] [place] [facility] [address] [id number] [place] [address] Oct, [facility] [place] [facility] [address] [id number] [place] [address] Oct, [facility] [place] [facility] [address] [id number] [place] [address] Oct, [facility] [place] [facility] [address] [id number] [place] [address] Oct, [facility] [place] [facility] [address] [id number] [place] [address] Oct, [facility] [place] [facility] [address] [id number] [place] [address] Oct, [facility] [place] [facility] [address] [id number] [place] [address] Oct, [facility] [place] [facility] [address] [id number] [place] [address] Oct, [facility] [place] [facility] [address] [id number] [place] [address] Oct, [facility] [place] [facility] [address] [id number] [place] [address] Sep, [facility] [place] [facility] [address] [id number] [place] [address] Sep, [facility] [place] [facility] [address] [id number] [place] [address] Sep, [facility] [place] [facility] [address] [id number] [place] [address] Sep, [facility] [place] [facility] [address] [id number] [place] [address] Aug, [facility] [place] [facility] [address] [id number] [place] [address] Aug, [facility] [place] [facility] [address] [id number] [place] [address] Aug, [facility] [place] [facility] [address] [id number] [place] [address] Jul, [facility] [place] [facility] [address] [id number] [place] [address] Jun, [facility] [place] [facility] [address] [id number] [place] [address] Jun, [facility] [place] [facility] [address] [id number] [place] [address] May, [facility] [place] [facility] [address] [id number] [place] [address] Apr, [facility] [place] [facility] [address] [id number] [place] [address] March, [facility] [place] [facility] [address] [id number] [place] [address] Jan, [facility] [place] [facility] [address] [id number] [place] [address] Dec, [facility] [place] [facility] [address] [id number] [place] [address] Dec, [facility] [place] [facility] [address] [id number] [place] [address] Nov, [facility] [place] [facility] [address] [id number] [place] [address] Oct, [facility] [place] [facility] [address] [id number] [place] [address] Oct, [facility] [place] [facility] [address] [id number] [place] [address] Sep, [facility] [place] [facility] [address] [id number] [place] [address] Aug, [facility] [place] [facility] [address] [id number] [place] [address] Dec, [facility] [place] [facility] [id number] [address] Oct, [facility] [id number] [address] Oct, [facility] [id number], [place] [address] Oct, [facility] [id number], [place] [address] Jun, [facility] [id number], [place] [address] Jun, [facility] [id number] [place] [address] Oct, [facility] [id number], [place] [address] Sep, [facility] [id number], [place] [address] Sep, [facility] [id number] [place] [address] Sep, [facility] [id number] [place] [address] Aug, [facility] [id number] [place] [address] Dec, IMMUNIZATIONS No Known Immunizations SOCIAL HISTORY Never Assessed REASON FOR VISIT britany/oliver Mendoza RN PLAN OF CARE Activity Details Follow Up Nov Reason: VITAL SIGNS Height 60 in 2018-06-28 Weight 180 lbs 2018-06-28 Heart Rate 74 bpm 2018-06-28 Respiratory Rate 18 2018-06-28 BMI 35.15 kg/m2 2018-06-28 Blood pressure systolic 112 mmHg 2018-06-28 Blood pressure diastolic 74 mmHg 2018-06-28 MEDICATIONS Medication Instructions Dosage Frequency Start Date End Date Duration Status Naproxen 500 mg Orally 2 times a day 1 tablet with food or milk as needed 12h 10 Jan, 2018 Active Welchol 625 MG Orally 3 times a day 1 tablets with meals 8h 11 Jun, 2017 90 days Active Prozac 20 MG Orally Once a day 1 capsule 24h May, 30 days Active Levocetirizine Dihydrochloride 5 mg Orally Once a day 1 tablet in the evening 24h Jun, Oct, 30 day(s) Active Multivitamin Active Fluticasone Propionate 50 MCG/ACT Nasally Once a day 1 spray in each nostril 24h Dec, 14 days Active RESULTS No Results PROCEDURES No [...]
--- OUTSIDE RECORDS SUMMARY | 2019-01-13 21:49 | XMS REPORT ---
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 History surgeries
--- OUTSIDE RECORDS SUMMARY | 2019-01-13 21:50 | XMS REPORT ---
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 41734480 Problem Elevated lymphocytes D72.820 Active 52063412 Problem Prediabetes R73.03 Active 412120631 Problem Chronic reflux esophagitis K21.0 Active 278077709 Problem Chronic fatigue R53.82 Active 92919671 Problem BMI 35.0-35.9,adult Z68.35 Active 293031494 Problem Major depressive disorder, recurrent episode, moderate F33.1 Active 553255894 Problem Seasonal allergic rhinitis due to pollen J30.1 Active 50369664 Problem WILMA (generalized anxiety disorder) F41.1 Active 96688461 Problem Severe episode of recurrent major depressive disorder, without 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 Active 40483882 Problem Carpal tunnel syndrome of right wrist G56.01 Active 11704258 Problem PTSD (post-traumatic stress disorder) F43.10 Active 92426936 ALLERGIES No Information ENCOUNTERS Encounter Location Date Diagnosis [facility] [address], [place] [address] Nov, [facility] [id number] [place] [address] 96659- 0218 Aug, [facility] [id number] [place] [address] 02196- 3967 Aug, [facility] [address], [place] [address] Jul, [facility] [id number] [place] [address] 43243- 5559 Jul, Severe episode of recurrent major depressive disorder, without 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 ; WILMA (generalized anxiety disorder) F41.1 and PTSD (post-traumatic stress disorder) F43.10 [facility] [id number] [place] [address] 10481- 1951 Jun, [facility] [id number] [place] [address] 96157- 3363 Jun, Severe episode of recurrent major depressive disorder, without 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 ; WILMA (generalized anxiety disorder) F41.1 and PTSD (post-traumatic stress disorder) F43.10 [facility] [id number] [place] [address] 50136- 0954 08 Jun, 2018 Encounter to establish care Z76.89 ; Diarrhea, unspecified type R19.7 ; Carpal tunnel syndrome of right wrist G56.01 ; Tobacco use Z72.0 ; Major depressive disorder, recurrent episode, moderate F33.1 and Seasonal allergic rhinitis due to pollen J30.1 [facility] [id number] [place] [address] 97117- 3313 Jun, Severe episode of recurrent major depressive disorder, without 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 ; WILMA (generalized anxiety disorder) F41.1 and PTSD (post-traumatic stress disorder) F43.10 [facility] [id number] [place] [address] 08225- 9726 May, Severe episode of recurrent major depressive disorder, without 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 ; WILMA (generalized anxiety disorder) F41.1 and PTSD (post-traumatic stress disorder) F43.10 [facility] [id number] [place] [address] 28970- 4231 May, Scalp cyst L72.9 [facility] [address] [address]- 0332 May, Severe episode of recurrent major depressive disorder, without 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 ; WILMA (generalized anxiety disorder) F41.1 and PTSD (post-traumatic stress disorder) F43.10 [facility] [address], [place] [address] Apr, Severe episode of recurrent major depressive disorder, without 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 ; WILMA (generalized anxiety disorder) F41.1 and PTSD (post-traumatic stress disorder) F43.10 [facility] [address] [address] March, Severe episode of recurrent major depressive disorder, without 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 ; WILMA (generalized anxiety disorder) F41.1 and PTSD (post-traumatic stress disorder) F43.10 [facility] [id number] [place] [address] 01715- 3935 March, Severe episode of recurrent major depressive disorder, without 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 ; WILMA (generalized anxiety disorder) F41.1 and PTSD (post-traumatic stress disorder) F43.10 [facility] [id number] [place] [address] 46447- 8059 March, [facility] [id number] [place] [address] 81071- 2563 Jan, Severe episode of recurrent major depressive disorder, without 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 ; WILMA (generalized anxiety disorder) F41.1 and PTSD (post-traumatic stress disorder) F43.10 [facility] [id number] [place] [address] 09857- 5540 Jan, Carpal tunnel syndrome of right wrist G56.01 [facility] [id number] [place] [address] 65337- 4160 Jan, Severe episode of recurrent major depressive disorder, without 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 ; WILMA (generalized anxiety disorder) F41.1 and PTSD (post-traumatic stress disorder) F43.10 [facility] [id number] [place] [address] 53442- 6493 Dec, Severe episode of recurrent major depressive disorder, without 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 ; WILMA (generalized anxiety disorder) F41.1 and PTSD (post-traumatic stress disorder) F43.10 [facility] [address], [place] [address] 5071 Dec, Severe episode of recurrent major depressive disorder, without 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 ; WILMA (generalized anxiety disorder) F41.1 and PTSD (post-traumatic stress disorder) F43.10 [facility] [address], [place] [address] Dec, Severe episode of recurrent major depressive disorder, without 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 ; WILMA (generalized anxiety disorder) F41.1 and PTSD (post-traumatic stress disorder) F43.10 [facility] [address] [address] Dec, Severe episode of recurrent major depressive disorder, without 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 [facility] [id number] [place] [address] 11320- 8869 Dec, Severe episode of recurrent major depressive disorder, without 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 ; WILMA (generalized anxiety disorder) F41.1 and PTSD (post-traumatic stress disorder) F43.10 [facility] [address], [place] [address] 1054 Dec, Severe episode of recurrent major depressive disorder, without 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 ; WILMA (generalized anxiety disorder) F41.1 and PTSD (post-traumatic stress disorder) F43.10 [facility] [address], [place] [address] 6[address] Dec, Severe episode of recurrent major depressive disorder, without 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 and Anxiety state, unspecified F41.1 [facility] [address], [place] [address]- 8917 14 Dec, 2017 Severe episode of recurrent major depressive disorder, without 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 and Anxiety state, unspecified F41.1 [facility] [address], [place] [address] 9712 Nov, Depression, major, recurrent, moderate F33.1 and Anxiety state, unspecified F41.1 [facility] [address] [place] [address] 45146- 2876 Nov, Depression, major, recurrent, moderate F33.1 and Anxiety state, unspecified F41.1 [facility] [id number] [place] [address] Oct, Depression, major, recurrent, moderate F33.1 and Anxiety state, unspecified F41.1 [facility] [id number] [place] [address] 886518- 5848 Oct, Depression, major, recurrent, moderate F33.1 and Post- cholecystectomy syndrome K91.5 [facility] [id number] [place] [address] Oct, Depression, major, recurrent, moderate F33.1 and Anxiety state, unspecified F41.1 [facility] [id number] [place] [address] 93924- 1637 Sep, Depression, major, recurrent, moderate F33.1 and Anxiety state, unspecified F41.1 [facility] [id number] [place] [address] 88035- 0110 Sep, Depression, major, recurrent, moderate F33.1 and Anxiety state, unspecified F41.1 [facility] [id number] [place] [address] 43491- 1369 Sep, Depression, major, recurrent, moderate F33.1 and Anxiety state, unspecified F41.1 [facility] [id number] [place] [address] 88850- 3394 Sep, Diarrhea, unspecified type R19.7 [facility] [id number] [place] [address] Aug, Depression, major, recurrent, moderate F33.1 and Anxiety state, unspecified F41.1 [facility] [id number] [place] [address] 58913- 7450 Aug, Depression, major, recurrent, moderate F33.1 and Anxiety state, unspecified F41.1 [facility] [address] [place] [address] 86142- 9063 Jul, Depression, major, recurrent, moderate F33.1 and Anxiety state, unspecified F41.1 [facility] [address] [place] [address] 49860- 8414 Jun, Depression, major, recurrent, moderate F33.1 and Anxiety state, unspecified F41.1 [facility] [id number] [place] [address] 67090- 8154 Jun, Generalized abdominal pain R10.84 ; Diarrhea, unspecified type R19.7 ; Acute cystitis without hematuria N30.00 ; Abdominal bloating R14.0 and Elevated blood pressure reading R03.0 [facility] [id number] [place] [address] 29868- 1386 Jun, Depression, major, recurrent, moderate F33.1 and Anxiety state, unspecified F41.1 [facility] [id number] [place] [address] 09262- 8454 May, Depression, major, recurrent, moderate F33.1 and Anxiety state, unspecified F41.1 [facility] [id number] [place] [address] 26245- 1824 May, Elevated lymphocytes D72.820 [facility] [id number] [place] [address] 23549- 9724 May, Elevated lymphocytes D72.820 [facility] [id number] [place] [address] 95085- 2616 May, BMI 35.0-35.9,adult Z68.35 ; Other fatigue R53.83 ; Pelvic pain R10.2 ; Tobacco use Z72.0 and Chronic reflux esophagitis K21.0 [facility] [address] [place] [address] 46602- 5536 Apr, [facility] [address] [address]- 1051 Apr, Depression, major, recurrent, moderate F33.1 and Anxiety state, unspecified F41.1 [facility] [id number] [place] [address] 85636- 6625 Apr, Depression, major, recurrent, moderate F33.1 and Anxiety state, unspecified F41.1 [facility] [id number] [place] [address] 43455- 3705 Apr, [facility] [id number] [place] [address] 78070- 5327 March, Major depressive disorder, recurrent episode, mild F33.0 and Anxiety state, unspecified F41.1 [facility] [id number] [place] [address] 65932 -7819 March, Sore throat J02.9 and Submandibular lymphadenopathy R59.0 [facility] [id number] [place] [address] 31634- 0817 Dec, Major depressive disorder, recurrent episode, mild F33.0 and Anxiety state, unspecified F41.1 [facility] [address] [place] [address] 13098- 4274 Dec, Major depressive disorder, recurrent episode, mild F33.0 and Anxiety state, unspecified F41.1 [facility] [id number] [place] [address] 98206- 1067 Dec, Major depressive disorder, recurrent episode, mild F33.0 and Anxiety state, unspecified F41.1 [facility] [id number] [place] [address] 40179- 9556 Sep, Major depressive disorder, recurrent episode, mild F33.0 and Anxiety state, unspecified F41.1 [facility] [address] [place] [address] 15619- 3961 16 Sep, 2016 Major depressive disorder, recurrent episode, moderate F33.1 and Anxiety state, unspecified F41.1 [facility] [address], [place] [address]- 7329 Aug, Major depressive disorder, recurrent episode, moderate F33.1 and Anxiety state, unspecified F41.1 [facility] [address], [place] [address]- 2648 Aug, Major depressive disorder, recurrent episode, moderate F33.1 and Anxiety state, unspecified F41.1 [facility] [address] [place] [address] 74401- 4211 Jul, Major depressive disorder, recurrent episode, moderate F33.1 and Anxiety state, unspecified F41.1 [facility] [address] [place] [address] 60227- 1814 Jul, Major depressive disorder, recurrent episode, moderate F33.1 and Anxiety state, unspecified F41.1 [facility] [address] [place] [address] 91277- 0355 Jun, Major depressive disorder, recurrent episode, moderate F33.1 and Anxiety state, unspecified F41.1 [facility] [address] [place] [address] 57570- 3258 Jun, Major depressive disorder, recurrent episode, moderate F33.1 and Anxiety state, unspecified F41.1 [facility] [address], [place] [address]- 0553 May, Major depressive disorder, recurrent episode, moderate F33.1 and Anxiety state, unspecified F41.1 [facility] [address], [place] [address]- 9035 Apr, Major depressive disorder, recurrent episode, moderate F33.1 and Anxiety state, unspecified F41.1 [facility] [address], [place] [address]- 5852 Apr, Major depressive disorder, recurrent episode, moderate F33.1 and Anxiety state, unspecified F41.1 [facility] [id number] [place] [address] 42586- 6473 Dec, Major depressive disorder, recurrent episode, moderate F33.1 and Anxiety state, unspecified F41.1 [facility] [id number] [place] [address] 83659- 3306 Dec, Major depressive disorder, recurrent episode, moderate F33.1 and Anxiety state, unspecified F41.1 [facility] [id number] [place] [address] 78715 -6085 Dec, Pharyngitis J02.9 and Acute frontal sinusitis J01.10 [facility] [id number] [place] [address] 50895- 0494 Nov, Bilateral occipital neuralgia M54.81 and Neck muscle spasm M62.838 [facility] [id number] [place] [address] 58362- 5831 Nov, Major depressive disorder, recurrent episode, moderate F33.1 and Anxiety state, unspecified F41.1 [facility] [id number] [place] [address] 61415- 7974 Sep, Major depressive disorder, recurrent episode, moderate F33.1 and Anxiety state, unspecified F41.1 [facility] [id number] [place] [address] 39712- 5593 Aug, Major depressive disorder, recurrent episode, moderate F33.1 and Anxiety state, unspecified F41.1 [facility] [id number] [place] [address] 23044- 4263 Jul, Abdominal pain 789.00 ; Hematochezia 578.1 and Weight loss 783.21 [facility] [id number] [place] [address] 49548- 8388 May, [facility] [id number] [place] [address] 94849- 6697 March, [facility] [id number] [place] [address] 53774- 7818 March, [facility] [place] [facility] [address] [id number] [place] [address]- 5565 14 Jan, 2015 [facility] [place] [facility] [address] [id number] [place] [address]- 2851 Jan, [facility] [place] [facility] [address] [facility] [id number] [place] [address]- 3600 Dec, 2014 [facility] [place] [facility] [address] [id number] [place] [address]- 4662 Dec, 2014 [facility] [place] [facility] [address] [id number] [place] [address]- 2413 Dec, 2014 [facility] [place] [facility] [address] [id number] [place] [address]- 3810 Dec, 2014 [facility] [place] [facility] [address] [id number] [place] [address]- 0295 Dec, 2014 [facility] [place] [facility] [address] [id number] [place] [address]- 2753 Dec, 2014 [facility] [place] [facility] [address] [id number] [place] [address]- 9096 Jul, [facility] [place] [facility] [address] [id number] [place] [address]- 7168 Jul, [facility] [place] [facility] [address] [id number] [place] [address]- 2548 Jul, 2013 [facility] [place] [facility] [address] [id number] [place] [address]- 2540 11 Jul, 2013 [facility] [place] [facility] [address] [id number] [place] [address]- 2542 10 Jul, 2013 [facility] [place] [facility] [address] [id number] [place] [address]- 2547 10 Jul, 2013 [facility] [place] [facility] [address] [facility] [id number] [place] [address]- 2543 09 Jul, 2013 [facility] [place] [facility] [address] [id number] [place] [address]- 6345 Jul, 2013 [facility] [place] [facility] [address] [id number] [place] [address]- 8431 Jul, [facility] [place] [facility] [address] [id number] [place] [address]- 7286 Jul, [facility] [place] [facility] [address] [id number] [place] [address]- 7968 Jul, [facility] [place] [facility] [address] [id number] [place] [address]- 4892 Jul, [facility] [place] [facility] [address] [id number] [place] [address]- 6152 May, [facility] [place] [facility] [address] [id number] [place] [address]- 6346 May, [facility] [place] [facility] [address] [id number] [place] [address]- 9973 Apr, [facility] [place] [facility] [address] [id number] [place] [address]- 8064 Apr, [facility] [place] [facility] [address] [id number] [place] [address]- 2945 Apr, [facility] [place] [facility] [address] [id number] [place] [address]- 7477 Apr, [facility] [place] [facility] [address] [id number] [place] [address]- 3794 March, [facility] [place] [facility] [address] [id number] [place] [address]- 6270 March, [facility] [place] [facility] [address] [id number] [place] [address]- 4123 Jan, [facility] [place] [facility] [address] [id number] [place] [address]- 7096 Jan, [facility] [place] [facility] [address] [id number] [place] [address]- 9944 Jan, [facility] [place] [facility] [address] [id number] [place] [address]- 0516 04 Jan, 2014 [facility] [place] [facility] [address] [id number] [place] [address]- 5136 25 Dec, 2013 [facility] [place] [facility] [address] [id number] [place] [address]- 5064 25 Dec, 2013 [facility] [place] [facility] [address] [id number] [place] [address]- 3961 18 Dec, 2013 [facility] [place] [facility] [address] [id number] [place] [address]- 5008 18 Dec, 2013 [facility] [place] [facility] [address] [id number] [place] [address]- 5652 15 Dec, 2013 [facility] [place] [facility] [address] [id number] [place] [address]- 6704 14 Dec, 2013 [facility] [place] [facility] [address] [id number] [place] [address]- 7620 13 Dec, 2013 [facility] [place] [facility] [address] [id number] [place] [address]- 9912 13 Dec, 2013 [facility] [place] [facility] [address] [id number] [place] [address]- 3039 12 Dec, 2013 [facility] [place] [facility] [address] [id number] [place] [address]- 6066 12 Dec, 2013 [facility] [place] [facility] [address] [id number] [place] [address]- 1810 05 Dec, 2013 [facility] [place] [facility] [address] [id number] [place] [address]- 5313 05 Dec, 2013 [facility] [place] [facility] [address] [id number] [place] [address]- 7931 03 Dec, 2013 [facility] [place] [facility] [address] [id number] [place] [address]- 4555 03 Dec, 2013 [facility] [place] [facility] [address] [id number] [place] [address]- 6646 Dec, [facility] [address] [id number] [place] [address]- 8726 Dec, [facility] [place] [facility] [address] [id number] [place]706 Dec, [facility] [address] [id number] [place] [address]- 5206 Dec, [facility] [place] [facility] [address] [id number] [place] [address]- 9295 Nov, [facility] [address] [id number] [place] [address]- 5733 Nov, [facility] [address] [id number] [place] [address]- 8936 Nov, [facility] [address] [id number] [place] [address]- 7742 Nov, [facility] [address] [id number] [place] [address]- 1790 Nov, [facility] [address] [id number] [place] [address]- 1433 Nov, [facility] [address] [id number] [place] [address]- 3359 Nov, [facility] [address] [id number] [place] [address]- 1879 Nov, [facility] [place] [facility] [address] [id number] [place] [address]- 3012 Oct, [facility] [place] [facility] [address] [id number] [place] [address]- 7949 Oct, [facility] [place] [facility] [address] [id number] [place] [address]- 6202 Oct, [facility] [place] [facility] [address] [id number] [place] [address]- 1756 Oct, [facility] [place] [facility] [address] [id number] [place] [address]- 6763 Oct, [facility] [place] [facility] [address] [id number] [place] [address]- 7017 Oct, [facility] [place] [facility] [address] [id number] [place] [address]- 7195 Sep, [facility] [place] [facility] [address] [id number] [place] [address]- 2547 Sep, [facility] [place] [facility] [address] [id number] [place] [address]- 2548 Sep, [facility] [place] [facility] [address] [id number] [place] [address]- 2394 Sep, [facility] [place] [facility] [address] [id number] [place] [address]- 5329 Aug, [facility] [place] [facility] [address] [id number] [place] [address] Aug, [facility] [place] [facility] [address] [id number] [place] [address] Aug, [facility] [place] [facility] [address] [id number] [place] [address] Aug, [facility] [place] [facility] [address] [id number] [place] [address] Jul, [facility] [place] [facility] [address] [id number], [place] [address] Jul, [facility] [place] [facility] [address] [id number] [place] [address] Jun, [facility] [place] [facility] [address] [id number] [place] [address] Jun, [facility] [place] [facility] [address] [id number], [place] [address] Apr, [facility] [place] [facility] [address] [id number], [place] [address] Apr, [facility] [address] [id number] [place] [address] Apr, [facility] [address] [id number] [place] [address] Apr, [facility] [address] [id number] [place] [address] March, [facility] [address] [id number] [place] [address] March, [facility] [address] [id number] [place] [address] March, [facility] [address] [id number] [place] [address] Jan, [facility] [address] [id number] [place] [address] Jan, [facility] [address] [id number] [place] [address] Dec, [facility] [address] [id number] [place] [address] Dec, [facility] [address] [id number] [place] [address] Dec, [facility] [address] [id number] [place] [address] Dec, [facility] [address] [id number] [place] [address] Dec, [facility] [address] [id number] [place] [address] Dec, [facility] [address] [id number] [place] [address] Nov, [facility] [address] [id number] [place] [address] Nov, [facility] [place] [facility] [address] [id number] [place] [address] Oct, [facility] [place] [facility] [address] [id number] [place] [address] Oct, [facility] [place] [facility] [address] [id number] [place] [address] Oct, [facility] [place] [facility] [address] [id number] [place] [place] [address] Oct, [facility] [place] [facility] [address] [id number] [place] [address] Oct, [facility] [place] [facility] [address] [id number] [place] [address] Oct, [facility] [place] [facility] [address] [id number] [place] [address] Oct, [facility] [place] [facility] [address] [id number] [place] [address] Oct, [facility] [place] [facility] [address] [id number] [place] [address] Oct, [facility] [place] [facility] [address] [id number] [place] [address] Oct, [facility] [place] [facility] [address] [id number] [place] [address] Sep, [facility] [place] [facility] [address] [id number] [place] [address] Sep, [facility] [place] [facility] [address] [id number] [place] [address] Sep, [facility] [place] [facility] [address] [id number] [place] [address] Sep, [facility] [place] [facility] [address] [id number] [place] [address] Aug, [facility] [place] [facility] [address] [id number] [place] [address] Aug, [facility] [place] [facility] [address] [id number] [place] [address] Aug, [facility] [place] [facility] [address] [id number] [place] [address] Jul, [facility] [place] [facility] [address] [id number] [place] [address] Jun, [facility] [place] [facility] [address] [id number] [place] [address] Jun, [facility] [place] [facility] [address] [id number] [place] [address] May, [facility] [place] [facility] [address] [id number] [place] [address] Apr, [facility] [place] [facility] [address] [id number] [place] [address] March, [facility] [place] [facility] [address] [id number] [place] [address] Jan, [facility] [place] [facility] [address] [id number] [place] [address] Dec, [facility] [place] [facility] [address] [id number] [place] [address] Dec, [facility] [place] [facility] [address] [id number] [place] [address] Nov, [facility] [place] [facility] [address] [id number] [address] Oct, [facility] [place] [facility] [address] [id number] [place] [address] Oct, [facility] [place] [facility] [address] [facility] [id number] [place] [address] Sep, [facility] [place] [facility] [address] [facility] [id number] [place] [address] Aug, [facility] [place] [facility] [id number] [address] Dec, [facility] [id number], [place] [address] Oct, [facility] [id number] [address] [address] Oct, [facility] [id number], [place] [address] Oct, [facility] [id number], [place] [address] Jun, [facility] [id number] [place] [address] Jun, [facility] [id number] [place] [address] Oct, [facility] [id number] [place] [address] Sep, [facility] [address], [place] [address] Sep, [facility] [id number] [place] [address] Sep, [facility] [address], [place] [address] Aug, [facility] [id number] [place] [address] Dec, IMMUNIZATIONS No Known Immunizations SOCIAL HISTORY Never Assessed REASON FOR VISIT f/marily Kaba RN PLAN OF CARE Activity Details Follow Up 6 Weeks Reason: VITAL SIGNS Height 60 in 2018-05-20 Weight 182 lbs 2018-05-20 Heart Rate 76 bpm 2018-05-20 Respiratory Rate 18 2018-05-20 BMI 35.54 kg/m2 2018-05-20 Blood pressure systolic 120 mmHg 2018-05-20 Blood pressure diastolic 74 mmHg 2018-05-20 MEDICATIONS Medication Instructions Dosage Frequency Start Date End Date Duration Status Prozac 10 MG Orally Once a day 1 capsule every day for one week then take 2 caps every day 24h May, 30 day(s) Active Cephalexin 500 mg Orally every 12 hrs 1 tablet 12h May, May, 05 days Active Zyrtec Allergy 10 MG Orally Once a day 1 tablet 24h Active Carpal Tunnel Wrist Stabilizer - as directed Jan, Active Carpal Tunnel Wrist Stabilizer - use while awake 24h Jan, Active Fluticasone Propionate 50 MCG/ACT Nasally Once a day 1 spray in each nostril 24h Dec, 14 days Active Welchol 625 MG Orally 3 times a day 1 tablets with meals 8h Jun, 30 day(s) Active Multivitamin Active Naproxen 500 mg Orally 2 times a day 1 tablet with food or milk as needed 12h Jan, Active RESULTS No Results PROCEDURES No Known [...]
--- OUTSIDE RECORDS SUMMARY | 2019-01-13 21:51 | XMS REPORT ---
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 57610828 Problem Elevated lymphocytes D72.820 Active 48927393 Problem Prediabetes R73.03 Active 488312437 Problem Chronic reflux esophagitis K21.0 Active 460389077 Problem Chronic fatigue R53.82 Active 95572558 Problem BMI 35.0-35.9,adult Z68.35 Active 665244515 Problem Major depressive disorder, recurrent episode, moderate F33.1 Active 713163754 Problem Seasonal allergic rhinitis due to pollen J30.1 Active 62023349 Problem WILMA (generalized anxiety disorder) F41.1 Active 47740909 Problem Severe episode of recurrent major depressive disorder, without 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 Active 29222480 Problem Carpal tunnel syndrome of right wrist G56.01 Active 34124974 Problem PTSD (post-traumatic stress disorder) F43.10 Active 48522135 ALLERGIES No Information ENCOUNTERS Encounter Location Date Diagnosis [facility] [id number], [place] [address] Nov, [facility] [id number], [place] [address] Aug, [facility] [id number] [place] [address] 45485- 8018 Aug, [facility] [address], [place] [address] Jul, [facility] [id number] [place] [address] 36131- 5367 Jul, Severe episode of recurrent major depressive disorder, without 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 ; WILMA (generalized anxiety disorder) F41.1 and PTSD (post-traumatic stress disorder) F43.10 [address] [facility] [id number] [place] [address] 56138- 0253 Jun, [facility] [id number] [place] [address] 81673- 7294 Jun, Severe episode of recurrent major depressive disorder, without 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 ; WILMA (generalized anxiety disorder) F41.1 and PTSD (post-traumatic stress disorder) F43.10 [facility] [id number] [place] [address] 40689- 9049 08 Jun, 2018 Encounter to [facility] Z76.89 ; Diarrhea, unspecified type R19.7 ; Carpal tunnel syndrome of right wrist G56.01 ; Tobacco use Z72.0 ; Major depressive disorder, recurrent episode, moderate F33.1 and Seasonal allergic rhinitis due to pollen J30.1 [facility] [id number] [place] [address] 05835- 4748 Jun, Severe episode of recurrent major depressive disorder, without 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 ; WILMA (generalized anxiety disorder) F41.1 and PTSD (post-traumatic stress disorder) F43.10 [facility] [address] [place] [address] 14226- 5523 May, Severe episode of recurrent major depressive disorder, without 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 ; WILMA (generalized anxiety disorder) F41.1 and PTSD (post-traumatic stress disorder) F43.10 [facility] [id number] [place] [address] 52293- 1440 May, Scalp cyst L72.9 [facility] [id number] [place] [address] 93942- 3619 May, Severe episode of recurrent major depressive disorder, without 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 ; WILMA (generalized anxiety disorder) F41.1 and PTSD (post-traumatic stress disorder) F43.10 [facility] [id number] [address] Apr, Severe episode of recurrent major depressive disorder, without 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 ; WILMA (generalized anxiety disorder) F41.1 and PTSD (post-traumatic stress disorder) F43.10 [facility] [address], [place] [address] March, Severe episode of recurrent major depressive disorder, without 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 ; WILMA (generalized anxiety disorder) F41.1 and PTSD (post-traumatic stress disorder) F43.10 [facility] [address] [place] [address] 05343- 9571 March, Severe episode of recurrent major depressive disorder, without 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 ; WILMA (generalized anxiety disorder) F41.1 and PTSD (post-traumatic stress disorder) F43.10 [facility] [id number] [place] [address] 11827- 4467 March, [facility] [id number] [place] [address] 31413- 4656 Jan, Severe episode of recurrent major depressive disorder, without 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 ; WILMA (generalized anxiety disorder) F41.1 and PTSD (post-traumatic stress disorder) F43.10 [facility] [id number] [place] [address] 70788- 2010 Jan, Carpal tunnel syndrome of right wrist G56.01 [facility] [address], [place] [address] 3[address] Jan, Severe episode of recurrent major depressive disorder, without 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 ; WILMA (generalized anxiety disorder) F41.1 and PTSD (post-traumatic stress disorder) F43.10 [address] [facility] [address] [place] [address] 98650- 4103 Dec, Severe episode of recurrent major depressive disorder, without 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 ; WILMA (generalized anxiety disorder) F41.1 and PTSD (post-traumatic stress disorder) F43.10 [facility] [address], [place] [address] 84[address] Dec, Severe episode of recurrent major depressive disorder, without 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 ; WILMA (generalized anxiety disorder) F41.1 and PTSD (post-traumatic stress disorder) F43.10 [facility] [address], [place] [address]- 0979 Dec, Severe episode of recurrent major depressive disorder, without 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 ; WILMA (generalized anxiety disorder) F41.1 and PTSD (post-traumatic stress disorder) F43.10 [facility] [address] [place] [address] 44345- 0462 Dec, Severe episode of recurrent major depressive disorder, without 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 [facility] [id number] [place] [address] 73663- 9477 Dec, Severe episode of recurrent major depressive disorder, without 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 ; WILMA (generalized anxiety disorder) F41.1 and PTSD (post-traumatic stress disorder) F43.10 [facility] [address] [place] [address] 08061- 0080 Dec, Severe episode of recurrent major depressive disorder, without 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 ; WILMA (generalized anxiety disorder) F41.1 and PTSD (post-traumatic stress disorder) F43.10 [facility] [address], [place] [address] 8[address] Dec, Severe episode of recurrent major depressive disorder, without 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 and Anxiety state, unspecified F41.1 [facility] [address], [place] [address]- 0890 Dec, Severe episode of recurrent major depressive disorder, without 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 and Anxiety state, unspecified F41.1 [facility] [address], [place] [address] 45[address] Nov, Depression, major, recurrent, moderate F33.1 and Anxiety state, unspecified F41.1 [facility] [id number] [place] [address] 01444- 4697 Nov, Depression, major, recurrent, moderate F33.1 and Anxiety state, unspecified F41.1 [facility] [address] [place] [address] [address] Oct, Depression, major, recurrent, moderate F33.1 and Anxiety state, unspecified F41.1 [facility] [address] [place] [address] Oct, Depression, major, recurrent, moderate F33.1 and Post- cholecystectomy syndrome K91.5 [facility] [address] [place] [address] Oct, Depression, major, recurrent, moderate F33.1 and Anxiety state, unspecified F41.1 [facility] [address] [place] [address] 12020- 6590 Sep, Depression, major, recurrent, moderate F33.1 and Anxiety state, unspecified F41.1 [facility] [address] [place] [address] 56876- 0040 Sep, Depression, major, recurrent, moderate F33.1 and Anxiety state, unspecified F41.1 [facility] [address] [place] [address] 00214- 9321 Sep, Depression, major, recurrent, moderate F33.1 and Anxiety state, unspecified F41.1 [facility] [address] [place] [address] 92703- 6303 Sep, Diarrhea, unspecified type R19.7 [place] [id number] [place] [address] Aug, Depression, major, recurrent, moderate F33.1 and Anxiety state, unspecified F41.1 [facility] [address] [place] [address] 26757- 3132 Aug, Depression, major, recurrent, moderate F33.1 and Anxiety state, unspecified F41.1 [facility] [address] [place] [address] 18425- 5897 Jul, Depression, major, recurrent, moderate F33.1 and Anxiety state, unspecified F41.1 [facility] [address] [place] [address] 16709- 8201 Jun, Depression, major, recurrent, moderate F33.1 and Anxiety state, unspecified F41.1 [facility] [address] [place] [address] 95156- 5313 Jun, Generalized abdominal pain R10.84 ; Diarrhea, unspecified type R19.7 ; Acute cystitis without hematuria N30.00 ; Abdominal bloating R14.0 and Elevated blood pressure reading R03.0 [facility] [address] [place] [address] 14543- 6924 Jun, Depression, major, recurrent, moderate F33.1 and Anxiety state, unspecified F41.1 [facility] [address] [place] [address] 50434- 1501 May, Depression, major, recurrent, moderate F33.1 and Anxiety state, unspecified F41.1 [facility] [address] [place] [address] 43879- 8602 May, Elevated lymphocytes D72.820 [facility] [address] [place] [address] 11098- 8775 May, Elevated lymphocytes D72.820 [facility] [address] [place] [address] 20563- 6508 May, BMI 35.0-35.9,adult Z68.35 ; Other fatigue R53.83 ; Pelvic pain R10.2 ; Tobacco use Z72.0 and Chronic reflux esophagitis K21.0 [facility] [address] [place] [address] 28340- 6986 Apr, [facility] [address] [place] [address]- 7416 Apr, Depression, major, recurrent, moderate F33.1 and Anxiety state, unspecified F41.1 [facility] [address] [place] [address] 06517- 0841 Apr, Depression, major, recurrent, moderate F33.1 and Anxiety state, unspecified F41.1 [facility] [address] [place] [address] 70249- 5605 Apr, [facility] [address] [place] [address] 28043- 8682 March, Major depressive disorder, recurrent episode, mild F33.0 and Anxiety state, unspecified F41.1 [facility] [address] [place] [address] 92201 -8471 March, Sore throat J02.9 and Submandibular lymphadenopathy R59.0 [facility] [facility] [address] [place] [address] 65535- 4569 Dec, Major depressive disorder, recurrent episode, mild F33.0 and Anxiety state, unspecified F41.1 [facility] [address] [place] [address] 67658- 8540 Dec, Major depressive disorder, recurrent episode, mild F33.0 and Anxiety state, unspecified F41.1 [facility] [facility] [address] [place] [address] 33448- 9568 Dec, Major depressive disorder, recurrent episode, mild F33.0 and Anxiety state, unspecified F41.1 [facility] [address] [place] [address] 78352- 0555 Sep, Major depressive disorder, recurrent episode, mild F33.0 and Anxiety state, unspecified F41.1 [facility] [address] [place] [address] 53653- 5905 Sep, Major depressive disorder, recurrent episode, moderate F33.1 and Anxiety state, unspecified F41.1 [facility] [facility] [address], [place] [address]- 9791 Aug, Major depressive disorder, recurrent episode, moderate F33.1 and Anxiety state, unspecified F41.1 [facility] [facility] [address], [place] [address]- 0600 Aug, Major depressive disorder, recurrent episode, moderate F33.1 and Anxiety state, unspecified F41.1 [facility] [address], [place] [address]- 8266 Jul, Major depressive disorder, recurrent episode, moderate F33.1 and Anxiety state, unspecified F41.1 [facility] [id number] [place] [address] 15377- 3231 Jul, Major depressive disorder, recurrent episode, moderate F33.1 and Anxiety state, unspecified F41.1 [facility] [address] [place] [address] 92480- 1064 Jun, Major depressive disorder, recurrent episode, moderate F33.1 and Anxiety state, unspecified F41.1 [facility] [address] [place] [address] 86280- 7383 Jun, Major depressive disorder, recurrent episode, moderate F33.1 and Anxiety state, unspecified F41.1 [facility] [address], [place] [address]- 6446 May, Major depressive disorder, recurrent episode, moderate F33.1 and Anxiety state, unspecified F41.1 [facility] [address], [place] [address]- 9695 Apr, Major depressive disorder, recurrent episode, moderate F33.1 and Anxiety state, unspecified F41.1 [facility] [address], [place] [address]- 4741 Apr, Major depressive disorder, recurrent episode, moderate F33.1 and Anxiety state, unspecified F41.1 [facility] [address] [place] [address] 82932- 1013 Dec, Major depressive disorder, recurrent episode, moderate F33.1 and Anxiety state, unspecified F41.1 [facility] [id number] [place] [address] 90256- 0149 Dec, Major depressive disorder, recurrent episode, moderate F33.1 and Anxiety state, unspecified F41.1 [facility] [address] [place] [address] 74415 -6152 Dec, Pharyngitis J02.9 and Acute frontal sinusitis J01.10 [facility] [address] [place] [address] 93990- 6700 Nov, Bilateral occipital neuralgia M54.81 and Neck muscle spasm M62.838 [facility] [address] [place] [address] 15646- 7946 Nov, Major depressive disorder, recurrent episode, moderate F33.1 and Anxiety state, unspecified F41.1 [facility] [address] [place] [address] 16813- 8415 Sep, Major depressive disorder, recurrent episode, moderate F33.1 and Anxiety state, unspecified F41.1 [facility] [address] [place] [address] 64265- 5218 Aug, Major depressive disorder, recurrent episode, moderate F33.1 and Anxiety state, unspecified F41.1 [facility] [address] [place] [address] 57549- 0449 Jul, Abdominal pain 789.00 ; Hematochezia 578.1 and Weight loss 783.21 [place] [address] 61404- 8586 May, [facility] [address] [place] [address] 14752- 6740 March, [facility] [address] [place] [address] 10092- 0441 March, [facility] [place] [facility] [address] [id number] [place] [address]- 3224 14 Jan, 2015 [facility] [place] [facility] [address] [id number] [place] [address]- 9464 Jan, [facility] [place] [facility] [address] [id number] [place] [address]- 7317 Dec, 2014 [facility] [place] [facility] [address] [id number] [place] [address]- 0928 Dec, 2014 [facility] [place] [facility] [address] [id number] [place] [address]- 6591 Dec, 2014 [facility] [place] [facility] [address] [id number] [place] [address]- 0935 Dec, 2014 [facility] [place] [facility] [address] [id number] [place] [address]- 9488 Dec, 2014 [facility] [place] [facility] [address] [id number] [place] [address]- 3804 Dec, 2014 [facility] [place] [facility] [address] [id number] [place] [address]- 0065 Jul, [facility] [place] [facility] [address] [id number] [place] [address]- 7813 Jul, [facility] [place] [facility] [address] [id number] [place] [address]- 9980 11 Jul, 2013 [facility] [place] [facility] [address] [id number] [place] [address]- 7431 11 Jul, 2013 [facility] [place] [facility] [address] [id number] [place] [address]- 4310 10 Jul, 2013 [facility] [place] [facility] [address] [id number] [place] [address]- 7040 Jul, 2013 [facility] [place] [facility] [address] [id number] [place] [address]- 2155 09 Jul, 2013 [facility] [place] [facility] [address] [id number] [place] [address]- 6476 Jul, 2013 [facility] [address] [id number] [place] [address]- 7310 Jul, [facility] [place] [facility] [address] [id number] [place] [address]- 1846 Jul, [facility] [place] [facility] [address] [id number] [place] [address]- 3016 Jul, [facility] [place] [facility] [address] [id number] [place] [address]- 6699 Jul, [facility] [place] [facility] [address] [id number] [place] [address]- 8228 May, [facility] [place] [facility] [address] [id number] [place] [address]- 3264 May, [facility] [place] [facility] [address] [id number] [place] [address]- 2634 Apr, [facility] [place] [facility] [address] [id number] [place] [address]- 4287 Apr, [facility] [place] [facility] [address] [id number] [place] [address]- 4676 Apr, [facility] [place] [facility] [address] [id number] [place] [address]- 7515 Apr, [facility] [place] [facility] [address] [id number] [place] [address]- 9478 March, [facility] [place] [facility] [address] [id number] [place] [address]- 0209 March, [facility] [place] [facility] [address] [id number] [place] [address]- 2779 Jan, [facility] [place] [facility] [address] [id number] [place] [address]- 7931 Jan, [facility] [place] [facility] [address] [id number] [place] [address]- 8281 Jan, [facility] [place] [facility] [address] [id number] [place] [address]- 8739 04 Jan, 2014 [facility] [place] [facility] [address] [id number] [place] [address]- 2295 25 Dec, 2013 [facility] [place] [facility] [address] [id number] [place] [address]- 0032 25 Dec, 2013 [facility] [place] [facility] [address] [id number] [place] [address]- 0067 18 Dec, 2013 [facility] [place] [facility] [address] [id number] [place] [address]- 4415 18 Dec, 2013 [facility] [place] [facility] [address] [id number] [place] [address]- 4501 15 Dec, 2013 [facility] [place] [facility] [address] [id number] [place] [address]- 4403 14 Dec, 2013 [facility] [place] [facility] [address] [id number] [place] [address]- 0972 13 Dec, 2013 [facility] [place] [facility] [address] [id number] [place] [address]- 4456 13 Dec, 2013 [facility] [place] [facility] [address] [id number] [place] [address]- 2644 12 Dec, 2013 [facility] [place] [facility] [address] [id number] [place] [address]- 6737 12 Dec, 2013 [facility] [place] [facility] [address] [id number] [place] [address]- 6321 05 Dec, 2013 [facility] [place] [facility] [address] [id number] [place] [address]- 8549 05 Dec, 2013 [facility] [place] [facility] [address] [id number] [place] [address]- 5301 03 Dec, 2013 [facility] [place] [facility] [address] [id number] [place] [address]- 0023 03 Dec, 2013 [facility] [place] [facility] [address] [id number] [place] [address]- 6775 Dec, [facility] [address] [id number] [place] [address]- 9976 Dec, [facility] [place] [facility] [address] [id number] [place] [address]- 6496 Dec, [facility] [place] [facility] [address] [id number] [place] [address]- 4376 Dec, [facility] [place] [facility] [address] [id number] [place] [address]- 7307 Nov, [facility] [place] [facility] [address] [id number] [place] [address]- 1214 Nov, [facility] [place] [facility] [address] [id number] [place] [address]- 6030 Nov, [facility] [place] [facility] [address] [id number] [place] [address]- 2227 Nov, [facility] [place] [facility] [address] [id number] [place] [address]- 7383 Nov, [facility] [place] [facility] [address] [id number] [place] [address]- 1034 Nov, [facility] [place] [facility] [address] [facility] [id number] [place] [address]- 2486 Nov, [facility] [place] [facility] [address] [id number] [place] [address]- 4575 Nov, [facility] [place] [facility] [address] [id number] [place] [address]- 5847 Oct, [facility] [place] [facility] [address] [id number] [place] [address]- 2255 Oct, [facility] [place] [facility] [address] [id number] [place] [address]- 1726 Oct, [facility] [place] [facility] [address] [id number] [place] [address]- 5474 Oct, [facility] [place] [facility] [address] [id number] [place] [address]- 0407 Oct, [facility] [place] [facility] [address] [id number] [place] [address]- 8390 Oct, [facility] [place] [facility] [address] [id number] [place] [address]- 6071 Sep, [facility] [place] [facility] [address] [id number] [place] [address]- 2422 Sep, [facility] [place] [facility] [address] [id number] [place] [address]- 2283 Sep, [facility] [place] [facility] [address] [id number] [place] [address]- 0527 Sep, [facility] [place] [facility] [address] [id number] [place] 7002 Aug, [facility] [place] [facility] [address] [id number] [place] [address] Aug, [facility] [place] [facility] [address] [id number] [place] [address] Aug, [facility] [place] [facility] [address] [id number] [place] [address] Aug, [facility] [place] [facility] [address] [id number] [place] [address] Jul, [facility] [place] [facility] [address] [id number] [place] [address] Jul, [facility] [place] [facility] [address] [id number] [place] [address] Jun, [facility] [place] [facility] [address] [id number] [place] [address] Jun, [facility] [place] [facility] [address] [id number] [place] [address] Apr, [facility] [place] [facility] [address] [id number] [place] [address] 20 Apr, 2013 [facility] [address] [id number] [place] [address] 15 Apr, 2013 [facility] [place] [facility] [address] [id number] [place] [address] Apr, [facility] [place] [facility] [address] [id number] [place] [address] March, [facility] [place] [facility] [address] [id number] [place] [address] March, [facility] [place] [facility] [address] [id number] [place] [address] March, [facility] [place] [facility] [address] [id number] [place] [address] Jan, [facility] [place] [facility] [address] [id number] [place] [address] Jan, [facility] [place] [facility] [address] [id number] [place] [address] Dec, [facility] [place] [facility] [address] [id number] [place] [address] Dec, [facility] [place] [facility] [address] [id number] [place] [address] Dec, [facility] [place] [facility] [address] [id number] [place] [address] Dec, [facility] [place] [facility] [address] [id number] [place] [address] Dec, [facility] [place] [facility] [address] [id number] [place] [address] Dec, [facility] [place] [facility] [address] [id number] [place] [address] Nov, [facility] [place] [facility] [address] [id number] [place] [address] Nov, [facility] [place] [facility] [address] [id number] [place] [address] Oct, [facility] [address] [id number] [place] [address] Oct, [facility] [place] [facility] [address] [id number] [place] [address] Oct, [facility] [address] [id number] [place] [address] Oct, [facility] [place] [facility] [address] [id number] [place] [address] Oct, [facility] [address] [id number] [place] [address] Oct, [facility] [address] [id number] [place] [address] Oct, [facility] [address] [id number] [place] [address] Oct, [facility] [address] [id number] [place] [address] Oct, [facility] [place] [facility] [address] [id number] [place] [address] Oct, [facility] [address] [id number] [place] [address] Sep, [facility] [place] [facility] [address] [id number] [place] [address] Sep, [facility] [place] [facility] [address] [id number] [place] [address] Sep, [facility] [place] [facility] [address] [id number] [place] [address] Sep, [facility] [place] [facility] [address] [id number] [place] [address] Aug, [facility] [place] [facility] [address] [id number] [place] [address] Aug, [facility] [place] [facility] [address] [id number] [place] [address] 2012 [facility] [place] [facility] [address] [id number] [place] [address] Jul, [facility] [place] [facility] [address] [id number] [place] [address] Jun, [facility] [place] [facility] [address] [id number] [place] [address] Jun, [facility] [place] [facility] [address] [id number] [place] [address] May, [facility] [place] [facility] [address] [id number] [place] [address] Apr, [facility] [place] [facility] [address] [id number] [place] [address] March, [facility] [place] [facility] [address] [id number] [place] [address] Jan, [facility] [place] [facility] [address] [id number] [place] [address] Dec, [facility] [place] [facility] [address] [id number] [place] [address] Dec, [facility] [place] [facility] [address] [id number] [place] [address] Nov, [facility] [place] [facility] [address] [id number], [place] [address] Oct, [facility] [place] [facility] [address] [id number] [place] [address] Oct, [facility] [place] [facility] [address] [id number] [place] [address] Sep, [facility] [place] [facility] [address] [id number] [place] [address] Aug, [facility] [place] [facility] [id number], [place] [address] Dec, 2010 [facility] [id number] [place] [address] Oct, [facility] [id number] [place] [address] Oct, [facility] [id number] [place] [address] Oct, [facility] [id number], [place] [address] Jun, [facility] [id number] [place] [address] Jun, [facility] [id number] [place] [address] Oct, [facility] [id number] [place] [address] Sep, [facility] [id number] [address] Sep, [facility] [id number] [place] [address] Sep, [facility] [id number] [place] [address] Aug, [facility] [id number], [place] [address] Dec, IMMUNIZATIONS No Known Immunizations SOCIAL HISTORY Never Assessed REASON FOR VISIT Follow-up Depression/Anxiety PLAN OF CARE Activity Details Follow Up 2 Weeks Reason: Follow-up VITAL SIGNS MEDICATIONS Unknown Medications RESULTS No Results PROCEDURES Procedure Date Ordered Result Body Site Psychotherapy, patient &/family, 45 minutes, established patient May 19, 2018 INSTRUCTIONS MEDICATIONS ADMINISTERED No Known Medications [...]
--- OUTSIDE RECORDS SUMMARY | 2019-01-13 21:51 | XMS REPORT ---
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 90637838 Problem Elevated lymphocytes D72.820 Active 79386618 Problem Prediabetes R73.03 Active 833061531 Problem Chronic reflux esophagitis K21.0 Active 790587855 Problem Chronic fatigue R53.82 Active 45563313 Problem BMI 35.0-35.9,adult Z68.35 Active 554744920 Problem Major depressive disorder, recurrent episode, moderate F33.1 Active 991534447 Problem Seasonal allergic rhinitis due to pollen J30.1 Active 72556468 Problem WILMA (generalized anxiety disorder) F41.1 Active 90360662 Problem Severe episode of recurrent major depressive disorder, without 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 Active 33467139 Problem Carpal tunnel syndrome of right wrist G56.01 Active 06114936 Problem PTSD (post-traumatic stress disorder) F43.10 Active 98844186 ALLERGIES Substance Reaction Event Type Date Status Latex rash Drug Allergy May, Active Wellbutrin suicidel thoughts Drug Allergy May, Active Citalopram 20 Mg Tablet Fatigue, "foggy", decreased sex drive Non Drug Allergy May, Active ENCOUNTERS Encounter Location Date Diagnosis [facility] [address] [facility] [id number], [place] [address] Nov, [facility] [address] [facility] [id number], [place] [address] Aug, [facility] [address] [facility] [id number], [place] [address] Aug, [place] [id number] [place] [address] 53685- 3089 Jul, [place] [address] [place] [id number] [place] [address] 53281- 4730 Jul, Severe episode of recurrent major depressive disorder, without 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 ; WILMA (generalized anxiety disorder) F41.1 and PTSD (post-traumatic stress disorder) F43.10 [place] [address] [place] [id number] [place] [address] 61613- 3111 Jun, [place] [address] [place] [id number] [place] [address] 51672- 3510 Jun, Severe episode of recurrent major depressive disorder, without 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 ; WILMA (generalized anxiety disorder) F41.1 and PTSD (post-traumatic stress disorder) F43.10 [place] [address] [place] [id number] [place] [address] 97874- 2518 08 Jun, 2018 Encounter to establish care Z76.89 ; Diarrhea, unspecified type R19.7 ; Carpal tunnel syndrome of right wrist G56.01 ; Tobacco use Z72.0 ; Major depressive disorder, recurrent episode, moderate F33.1 and Seasonal allergic rhinitis due to pollen J30.1 [place] [address] [address] [id number] [place] [address] 92483- 5518 Jun, Severe episode of recurrent major depressive disorder, without 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 ; WILMA (generalized anxiety disorder) F41.1 and PTSD (post-traumatic stress disorder) F43.10 [place] [address] [place] [address] 27859- 0429 May, Severe episode of recurrent major depressive disorder, without 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 ; WILMA (generalized anxiety disorder) F41.1 and PTSD (post-traumatic stress disorder) F43.10 [place] [address] [place] [address] 16791- 3212 May, Scalp cyst L72.9 [place] [address] [place] [id number] [place] [address] 96590- 9331 May, Severe episode of recurrent major depressive disorder, without 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 ; WILMA (generalized anxiety disorder) F41.1 and PTSD (post-traumatic stress disorder) F43.10 [place] [address] [place] [id number] [place] [address] 09708- 4735 Apr, Severe episode of recurrent major depressive disorder, without 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 ; WILMA (generalized anxiety disorder) F41.1 and PTSD (post-traumatic stress disorder) F43.10 [place] [address] [place] [id number] [place] [address] 47355- 0412 March, Severe episode of recurrent major depressive disorder, without 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 ; WILMA (generalized anxiety disorder) F41.1 and PTSD (post-traumatic stress disorder) F43.10 [place] [address] [id number] [place] [address] 76119- 8116 March, Severe episode of recurrent major depressive disorder, without 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 ; WILMA (generalized anxiety disorder) F41.1 and PTSD (post-traumatic stress disorder) F43.10 [place] [address] [place] [id number] [place] [address] 72008- 7359 March, [place] [address] [place] [id number] [place] [address] 08455- 6584 Jan, Severe episode of recurrent major depressive disorder, without 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 ; WILMA (generalized anxiety disorder) F41.1 and PTSD (post-traumatic stress disorder) F43.10 [place] [address] [id number] [place] [address] 95187- 1490 Jan, Carpal tunnel syndrome of right wrist G56.01 [place] [address] [place] [id number] [place] [address] 13689- 0880 Jan, Severe episode of recurrent major depressive disorder, without 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 ; WILMA (generalized anxiety disorder) F41.1 and PTSD (post-traumatic stress disorder) F43.10 [place] [address] [place] [id number] [place] [address] 04064- 2484 Dec, Severe episode of recurrent major depressive disorder, without 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 ; WILMA (generalized anxiety disorder) F41.1 and PTSD (post-traumatic stress disorder) F43.10 [facility] [address] [address] 30[address] Dec, Severe episode of recurrent major depressive disorder, without 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 ; WILMA (generalized anxiety disorder) F41.1 and PTSD (post-traumatic stress disorder) F43.10 [facility] [address] [address] 0899 Dec, Severe episode of recurrent major depressive disorder, without 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 ; WILMA (generalized anxiety disorder) F41.1 and PTSD (post-traumatic stress disorder) F43.10 [place] [address] [place] [address] 97656- 6230 Dec, Severe episode of recurrent major depressive disorder, without 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 [place] [address] [place] [address] 80622- 9587 Dec, Severe episode of recurrent major depressive disorder, without 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 ; WILMA (generalized anxiety disorder) F41.1 and PTSD (post-traumatic stress disorder) F43.10 [facility] [address] [address] 4327 Dec, Severe episode of recurrent major depressive disorder, without 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 ; WILMA (generalized anxiety disorder) F41.1 and PTSD (post-traumatic stress disorder) F43.10 [place] [address] [address] 3969 Dec, Severe episode of recurrent major depressive disorder, without 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 and Anxiety state, unspecified F41.1 [facility] [address] [address]- 2906 Dec, Severe episode of recurrent major depressive disorder, without 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 and Anxiety state, unspecified F41.1 [place] [address] [place] [address]83 Nov, Depression, major, recurrent, moderate F33.1 and Anxiety state, unspecified F41.1 [place] [address] [place] [address] [id number] [place] [address] [address] Nov, Depression, major, recurrent, moderate F33.1 and Anxiety state, unspecified F41.1 [place] [address] [place] [id number] [place] [address] Oct, Depression, major, recurrent, moderate F33.1 and Anxiety state, unspecified F41.1 [place] [address] 869925- 9221 Oct, Depression, major, recurrent, moderate F33.1 and Post- cholecystectomy syndrome K91.5 [place] [address] 34940- 4665 Oct, Depression, major, recurrent, moderate F33.1 and Anxiety state, unspecified F41.1 [place] [address] [place] [id number] [place] [address] 43407- 7520 Sep, Depression, major, recurrent, moderate F33.1 and Anxiety state, unspecified F41.1 [place] [address] [address] [id number] [place] [address] 67129- 9767 Sep, Depression, major, recurrent, moderate F33.1 and Anxiety state, unspecified F41.1 [place] [address] [place] [id number] [place] [address] 39554- 4251 Sep, Depression, major, recurrent, moderate F33.1 and Anxiety state, unspecified F41.1 [place] [address] [address] [id number] [place] [address] [address]29 Sep, Diarrhea, unspecified type R19.7 [place] [address] [place] [id number] [place] [address] 25828- 6012 Aug, Depression, major, recurrent, moderate F33.1 and Anxiety state, unspecified F41.1 [place] [address] [address] [id number] [place] [address] 55886- 0760 Aug, Depression, major, recurrent, moderate F33.1 and Anxiety state, unspecified F41.1 [place] [address] [place] [id number] [place] [address] 78450- 3521 Jul, Depression, major, recurrent, moderate F33.1 and Anxiety state, unspecified F41.1 [place] [address] [place] [id number] [place] [address] 89489- 1598 Jun, Depression, major, recurrent, moderate F33.1 and Anxiety state, unspecified F41.1 [place] [address] [place] [id number] [place] [address] 28968- 6813 Jun, Generalized abdominal pain R10.84 ; Diarrhea, unspecified type R19.7 ; Acute cystitis without hematuria N30.00 ; Abdominal bloating R14.0 and Elevated blood pressure reading R03.0 [place] [address] [place] [id number] [place] [address] 53805- 8629 Jun, Depression, major, recurrent, moderate F33.1 and Anxiety state, unspecified F41.1 [place] [address] [place] [id number] [place] [address] 75356- 5195 May, Depression, major, recurrent, moderate F33.1 and Anxiety state, unspecified F41.1 [place] [address] [place] [id number] [place] [address] 11222- 7500 May, Elevated lymphocytes D72.820 [place] [address] 33888- 2023 May, Elevated lymphocytes D72.820 [place] [address] [place] [id number] [place] [address] 89679- 9622 May, BMI 35.0-35.9,adult Z68.35 ; Other fatigue R53.83 ; Pelvic pain R10.2 ; Tobacco use Z72.0 and Chronic reflux esophagitis K21.0 [place] [address] [address]- 9913 Apr, [place] [address] [place] [id number] [place] [address] 03084- 9765 Apr, Depression, major, recurrent, moderate F33.1 and Anxiety state, unspecified F41.1 [place] [address] [place] [id number] [place] [address] 58852- 6274 Apr, Depression, major, recurrent, moderate F33.1 and Anxiety state, unspecified F41.1 [place] [address] [place] [id number] [place] [address] 63606- 3655 Apr, [place] [address] [place] [id number] [place] [address] 43250- 1002 March, Major depressive disorder, recurrent episode, mild F33.0 and Anxiety state, unspecified F41.1 [facility] [address] [place] [id number] [place] [address] 86942 -8579 March, Sore throat J02.9 and Submandibular lymphadenopathy R59.0 [place] [address] [place] [id number] [place] [address] 10475- 5098 Dec, Major depressive disorder, recurrent episode, mild F33.0 and Anxiety state, unspecified F41.1 [place] [address] [place] [id number] [place] [address] 70760- 4601 Dec, Major depressive disorder, recurrent episode, mild F33.0 and Anxiety state, unspecified F41.1 [place] [address] [place] [address] 77866- 6444 Dec, Major depressive disorder, recurrent episode, mild F33.0 and Anxiety state, unspecified F41.1 [place] [address] [place] [address] 47146- 2223 Sep, Major depressive disorder, recurrent episode, mild F33.0 and Anxiety state, unspecified F41.1 [place] [address] [address]- 0260 Sep, Major depressive disorder, recurrent episode, moderate F33.1 and Anxiety state, unspecified F41.1 [place] [address] [address]- 5600 Aug, Major depressive disorder, recurrent episode, moderate F33.1 and Anxiety state, unspecified F41.1 [place] [address] [place] [id number] [place] [address] 15861- 9573 Aug, Major depressive disorder, recurrent episode, moderate F33.1 and Anxiety state, unspecified F41.1 [place] [address] [place] [address] 74256- 8703 Jul, Major depressive disorder, recurrent episode, moderate F33.1 and Anxiety state, unspecified F41.1 [place] [address] [place] [id number] [place] [address] 06060- 3407 Jul, Major depressive disorder, recurrent episode, moderate F33.1 and Anxiety state, unspecified F41.1 [place] [address] [place] [address] 56071- 6686 Jun, Major depressive disorder, recurrent episode, moderate F33.1 and Anxiety state, unspecified F41.1 [place] [address] [address]- 7553 Jun, Major depressive disorder, recurrent episode, moderate F33.1 and Anxiety state, unspecified F41.1 [place] [address] [address]- 2948 May, Major depressive disorder, recurrent episode, moderate F33.1 and Anxiety state, unspecified F41.1 [place] [address] [address]- 2013 Apr, Major depressive disorder, recurrent episode, moderate F33.1 and Anxiety state, unspecified F41.1 [place] [address] [place] [id number] [place] [address] 52242- 8416 Apr, Major depressive disorder, recurrent episode, moderate F33.1 and Anxiety state, unspecified F41.1 [place] [address] [place] [id number] [place] [address] 43480- 7455 Dec, Major depressive disorder, recurrent episode, moderate F33.1 and Anxiety state, unspecified F41.1 [place] [address] [place] [id number] [place] [address] 87426- 6117 Dec, Major depressive disorder, recurrent episode, moderate F33.1 and Anxiety state, unspecified F41.[address] [facility] [address] 9[address]63 -4666 Dec, Pharyngitis J02.9 and Acute frontal sinusitis J01.10 [place] [address] [place] [id number] [place] [address] 93677- 2998 Nov, Bilateral occipital neuralgia M54.81 and Neck muscle spasm M62.838 [place] [address] [place] [id number] [place] [address] 71779- 9418 Nov, Major depressive disorder, recurrent episode, moderate F33.1 and Anxiety state, unspecified F41.1 [place] [address] [place] [id number] [place] [address] 99990- 6472 Sep, Major depressive disorder, recurrent episode, moderate F33.1 and Anxiety state, unspecified F41.1 [place] [address] [place] [id number] [place] [address] 94860- 2788 Aug, Major depressive disorder, recurrent episode, moderate F33.1 and Anxiety state, unspecified F41.1 [place] [address] [place] [id number] [place] [address] 65920- 6186 Jul, Abdominal pain 789.00 ; Hematochezia 578.1 and Weight loss 783.21 [place] [address] [place] [id number] [place] [address] 60313- 4460 May, [facility] [place] [facility] [address] [id number] [place] [address]- 0123 March, [facility] [place] [facility] [address] [id number] [place] [address]- 2942 March, [facility] [place] [facility] [address] [id number] [place] [address]- 7983 Jan, [facility] [place] [facility] [address] [id number] [place] [address]- 7455 Jan, [facility] [place] [facility] [address] [id number] [place] [address]- 3575 Dec, 2014 [facility] [place] [facility] [address] [id number] [place] [address]- 7249 Dec, 2014 [facility] [place] [facility] [address] [facility] [id number] [place] [address]- 1466 Dec, 2014 [facility] [place] [facility] [address] [id number] [place] [address]- 0258 Dec, 2014 [facility] [place] [facility] [address] [facility] [id number] [place] [address]- 6456 Dec, 2014 [facility] [place] [facility] [address] [facility] [id number] [place] [address]- 7767 Dec, 2014 [facility] [place] [facility] [address] [facility] [id number] [place] [address]- 5530 Jul, 2013 [facility] [place] [facility] [address] [id number], [place] [address]- 1505 25 Jul, 2013 [facility] [place] [facility] [address] [id number] [place] [address]- 2548 11 Jul, 2013 [facility] [place] [facility] [address] [id number] [place] [address]- 2541 11 Jul, 2013 [facility] [place] [facility] [address] [facility] [id number] [place] [address]- 2935 10 Jul, 2013 [facility] [place] [facility] [address] [id number], [place] [address]- 1508 Jul, 2013 [facility] [place] [facility] [address] [id number] [place] [address]- 5690 Jul, 2013 [facility] [place] [facility] [address] [id number] [place] [address]- 2522 Jul, 2013 [facility] [place] [facility] [address] [id number] [place] [address]- 6739 Jul, 2013 [facility] [place] [facility] [address] [id number] [place] [address]- 0738 Jul, 2013 [facility] [place] [facility] [address] [id number] [place] [address]- 4993 Jul, 2013 [facility] [place] [facility] [address] [id number] [place] [address]- 6421 Jul, 2013 [facility] [place] [facility] [address] [id number] [place] [address]- 7097 May, [facility] [place] [facility] [address] [id number] [place] [address]- 5433 May, [facility] [place] [facility] [address] [id number] [place] [address]- 1946 Apr, [facility] [place] [facility] [address] [id number] [place] [address]- 2999 Apr, [facility] [place] [facility] [address] [id number] [place] [address]- 3722 Apr, [facility] [place] [facility] [address] [id number], [place] [address]- 8925 Apr, [facility] [place] [facility] [address] [id number] [place] [address]- 4938 March, [facility] [place] [facility] [address] [id number] [place] [address]- 0609 March, [facility] [place] [facility] [address] [id number] [place] [address]- 9176 Jan, [facility] [place] [facility] [address] [id number] [place] [address]- 7903 16 Jan, 2014 [facility] [place] [facility] [address] [id number] [place] [address]- 7823 04 Jan, 2014 [facility] [place] [facility] [address] [id number] [place] [address]- 1206 04 Jan, 2014 [facility] [place] [facility] [address] [id number] [place] [address]- 8729 25 Dec, 2013 [facility] [place] [facility] [address] [id number] [place] [address]- 5820 25 Dec, 2013 [facility] [place] [facility] [address] [id number] [place] [address]- 1651 18 Dec, 2013 [facility] [place] [facility] [address] [id number] [place] [address]- 9825 18 Dec, 2013 [facility] [place] [facility] [address] [id number] [place] [address]- 8962 15 Dec, 2013 [facility] [place] [facility] [address] [id number] [place] [address]- 5107 14 Dec, 2013 [facility] [place] [facility] [address] [id number] [place] [address]- 9795 13 Dec, 2013 [facility] [place] [facility] [address] [id number] [place] [address]- 1932 13 Dec, 2013 [facility] [place] [facility] [address] [id number] [place] [address]- 0138 12 Dec, 2013 [facility] [place] [facility] [address] [id number] [place] [address]- 5716 12 Dec, 2013 [facility] [place] [facility] [address] [id number] [place] [address]- 7860 05 Dec, 2013 [facility] [place] [facility] [address] [id number] [place] [address]- 8726 05 Dec, 2013 [facility] [place] [facility] [address] [id number] [place] [address]- 4545 Dec, [facility] [place] [facility] [address] [id number] [place] 3499 Dec, [facility] [place] [facility] [address] [id number] [place] [address]- 9843 Dec, [facility] [place] [facility] [address] [id number] [place] [address]- 5519 Dec, [facility] [place] [facility] [address] [id number] [place] 2042 Dec, [facility] [place] [facility] [address] [id number] [place] [address]- 0994 Dec, [facility] [place] [facility] [address] [id number] [place] [address]- 0473 Nov, [facility] [place] [facility] [address] [id number] [place] [address]- 2094 Nov, [facility] [place] [facility] [address] [id number] [place] [address]- 8528 Nov, [facility] [place] [facility] [address] [id number] [place] [address]- 8802 Nov, [facility] [place] [facility] [address] [id number] [place] [address]- 7717 Nov, [facility] [place] [facility] [address] [id number] [place] [address]- 4648 Nov, [facility] [place] [facility] [address] [id number] [place] [address]- 9809 Nov, [facility] [place] [facility] [address] [id number] [place] 1110 Nov, [facility] [place] [facility] [address] [id number] [place] [address]- 1748 Oct, [facility] [place] [facility] [address] [id number] [place] [address]- 5175 Oct, [facility] [place] [facility] [address] [id number] [place] [address]- 3197 Oct, [facility] [address] [id number] [place] [address]- 7229 Oct, [facility] [place] [facility] [address] [id number] [place] [address]- 2546 Oct, [facility] [address] [id number] [place] [address]- 0329 Oct, [facility] [address] [id number] [place] [address]- 8540 Sep, [facility] [address] [id number] [place] [address]- 6910 Sep, [facility] [address] [id number] [place] [address]- 2246 Sep, [facility] [address] [id number] [place] [address]- 2576 Sep, [facility] [address] [id number] [place] [address]- 6053 Aug, [facility] [address] [id number] [place] [address]- 9537 Aug, [facility] [address] [facility] [id number] [place] [address] Aug, [facility] [place] [facility] [address] [id number] [place] [address] Aug, [facility] [address] [id number] [place] [address] Jul, [facility] [place] [facility] [address] [id number] [place] [address] Jul, [facility] [place] [facility] [address] [id number] [place] [address] Jun, [facility] [place] [facility] [address] [id number] [place] [address] Jun, [facility] [address] [id number] [place] [address] Apr, [facility] [place] [facility] [address] [id number] [place] [address] Apr, [facility] [place] [facility] [address] [id number] [place] [address] Apr, [facility] [place] [facility] [address] [id number] [place] [address] Apr, [facility] [address] [id number] [place] [address] March, [facility] [place] [facility] [address] [id number] [place] [address] March, [facility] [place] [facility] [address] [id number] [place] [address] March, [facility] [place] [facility] [address] [id number] [place] [address] Jan, [facility] [place] [facility] [address] [id number] [place] [address] Jan, [facility] [place] [facility] [address] [id number] [place] [address] Dec, [facility] [place] [facility] [address] [id number] [place] [address] Dec, [facility] [place] [facility] [address] [id number] [place] [address] Dec, [facility] [place] [facility] [address] [id number] [place] [address] Dec, [facility] [place] [facility] [address] [id number] [place] [address] Dec, [facility] [place] [facility] [address] [id number] [place] [address] Dec, [facility] [place] [facility] [address] [id number] [place] [place] [address] Nov, [facility] [address] [id number] [place] [address] Nov, [facility] [address] [id number] [place] [address] Oct, [facility] [address] [id number] [place] [address] Oct, [facility] [place] [facility] [address] [id number] [place] [address] Oct, [facility] [address] [id number] [place] [address] Oct, [facility] [address] [id number] [place] [address] Oct, [facility] [address] [id number] [place] [address] Oct, [facility] [address] [id number] [place] [address] Oct, [facility] [address] [id number] [place] [address] Oct, [facility] [address] [id number] [place] [address] Oct, [facility] [place] [facility] [address] [id number] [place] [address] Oct, [facility] [place] [facility] [address] [id number] [place] [address] Sep, [facility] [place] [facility] [address] [id number] [place] [address] Sep, [facility] [place] [facility] [address] [id number] [place] [address] Sep, [facility] [place] [facility] [address] [id number] [place] [address] Sep, [facility] [place] [facility] [address] [id number] [place] [address] Aug, [facility] [place] [facility] [address] [id number] [place] [address] Aug, [facility] [place] [facility] [address] [id number] [place] [address] Aug, [facility] [place] [facility] [address] [id number] [place] [address] Jul, [facility] [place] [facility] [address] [id number] [place] [address] Jun, [facility] [place] [facility] [address] [id number] [place] [address] Jun, [facility] [place] [facility] [address] [id number] [place] [address] May, [facility] [place] [facility] [address] [id number] [place] [address] Apr, [facility] [place] [facility] [address] [id number] [place] [address] March, [facility] [place] [facility] [address] [id number] [place] [address] Jan, [facility] [place] [facility] [address] [id number] [place] [address] Dec, [facility] [place] [facility] [address] [id number] [place] [address] Dec, [facility] [place] [facility] [address] [id number] [place] [address] Nov, [facility] [place] [facility] [address] [id number] [place] [address] Oct, [facility] [place] [facility] [address] [id number] [place] [address] Oct, [facility] [place] [facility] [address] [id number] [address] Sep, [facility] [id number] [address] Aug, [facility] [id number] [address] Dec, [facility] [id number] [address] Oct, [facility] [id number] [place] [address] Oct, [facility] [id number] [place] [address] Oct, [facility] [id number] [place] [address]- [address] Jun, [facility] [id number] [place] [address] Jun, [facility] [id number] [address] Oct, [facility] [id number] [place] [address] Sep, [facility] [id number] [address] Sep, [facility] [id number] [address] Sep, [facility] [id number] [address] Aug, [facility] [id number] [address] Dec, IMMUNIZATIONS No Known Immunizations SOCIAL HISTORY Never Assessed REASON FOR VISIT cyst on head-awoods PLAN OF CARE Activity Details Follow Up prn Reason: VITAL SIGNS Height 60 in 2018-05-19 Weight 181 lbs 2018-05-19 Temperature 98.9 degrees Fahrenheit 2018-05-19 Heart Rate 73 bpm 2018-05-19 Respiratory Rate 20 2018-05-19 BMI 35.35 kg/m2 2018-05-19 Blood pressure systolic 118 mmHg 2018-05-19 Blood pressure diastolic 70 mmHg 2018-05-19 MEDICATIONS Medication Instructions Dosage Frequency Start Date End Date Duration Status Multivitamin Active Cephalexin 500 mg Orally every 12 hrs 1 tablet 12h May, May, 05 days Active Cymbalta 30 MG Orally every morning 2 capsule Oct, 30 days Active Fluticasone Propionate 50 MCG/ACT Nasally Once a day 1 spray in each nostril 24h Dec, 14 days Active Naproxen 500 mg Orally 2 times a day 1 tablet with food or milk as needed 12h Jan, Active Carpal Tunnel Wrist Stabilizer - as directed Jan, Active Carpal Tunnel Wrist Stabilizer - use while awake 24h Jan, Active Zyrtec Allergy 10 MG Orally Once a day 1 tablet 24h Active Welchol 625 MG Orally 3 times a day 1 tablets with meals 8h Jun, 30 day(s) Active RESULTS No Results PROCEDURES No Known [...]
--- OUTSIDE RECORDS SUMMARY | 2019-01-13 21:52 | XMS REPORT ---
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 75742243 Problem Elevated lymphocytes D72.820 Active 62895908 Problem Prediabetes R73.03 Active 033965265 Problem Chronic reflux esophagitis K21.0 Active 330108395 Problem Chronic fatigue R53.82 Active 34717597 Problem BMI 35.0-35.9,adult Z68.35 Active 189658493 Problem Major depressive disorder, recurrent episode, moderate F33.1 Active 262058118 Problem Seasonal allergic rhinitis due to pollen J30.1 Active 24603048 Problem WILMA (generalized anxiety disorder) F41.1 Active 33094327 Problem Severe episode of recurrent major depressive disorder, without 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 Active 47785833 Problem Carpal tunnel syndrome of right wrist G56.01 Active 49065560 Problem PTSD (post-traumatic stress disorder) F43.10 Active 98290021 ALLERGIES No Information ENCOUNTERS Encounter Location Date Diagnosis [facility] [place] [address], [place] [address] Nov, [facility] [place] [address], [place] [address] Aug, [facility] [place] [id number] [place] [address] 34586- 3993 Jul, [facility] [place] [id number] [address] Jul, [facility] [place] [id number] [place] [address] 54322- 3794 Jun, [place] [id number] [place] [address] 35569- 9130 Jun, Severe episode of recurrent major depressive disorder, without 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 ; WILMA (generalized anxiety disorder) F41.1 and PTSD (post-traumatic stress disorder) F43.10 [place] [id number] [place] [address] 45317- 7972 Jun, Encounter to establish care Z76.89 ; Diarrhea, unspecified type R19.7 ; Carpal tunnel syndrome of right wrist G56.01 ; Tobacco use Z72.0 ; Major depressive disorder, recurrent episode, moderate F33.1 and Seasonal allergic rhinitis due to pollen J30.1 [place] [id number] [place] [address] 79693- 5502 Jun, Severe episode of recurrent major depressive disorder, without 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 ; WILMA (generalized anxiety disorder) F41.1 and PTSD (post-traumatic stress disorder) F43.10 [place] [id number] [place] [address] 88605- 9656 May, Severe episode of recurrent major depressive disorder, without 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 ; WILMA (generalized anxiety disorder) F41.1 and PTSD (post-traumatic stress disorder) F43.10 [place] [id number] [place] [address] 69278- 6937 May, Scalp cyst L72.9 [place] [id number] [place] [address] 86632- 7952 May, Severe episode of recurrent major depressive disorder, without 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 ; WILMA (generalized anxiety disorder) F41.1 and PTSD (post-traumatic stress disorder) F43.10 [place] [id number] [place] [address] 68722- 5048 Apr, Severe episode of recurrent major depressive disorder, without 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 ; WILMA (generalized anxiety disorder) F41.1 and PTSD (post-traumatic stress disorder) F43.10 [place] [id number] [address]878 March, Severe episode of recurrent major depressive disorder, without 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 ; WILMA (generalized anxiety disorder) F41.1 and PTSD (post-traumatic stress disorder) F43.10 [place] [id number] [place] [address] 47347- 7104 March, Severe episode of recurrent major depressive disorder, without 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 ; WILMA (generalized anxiety disorder) F41.1 and PTSD (post-traumatic stress disorder) F43.10 [place] [id number] [place] [address] 91078- 1423 March, [place] [id number] [place] [address] 53059- 1291 Jan, Severe episode of recurrent major depressive disorder, without psychotic features F33.2 ; WILMA (generalized anxiety disorder) F41.1 and PTSD (post-traumatic stress disorder) F43.10 [place] [id number] [place] [address] 78614- 3685 Jan, Carpal tunnel syndrome of right wrist G56.01 [place] [id number] [place] [address] 75089- 0084 Jan, Severe episode of recurrent major depressive disorder, without psychotic features F33.2 ; WILMA (generalized anxiety disorder) F41.1 and PTSD (post-traumatic stress disorder) F43.10 [place] [id number] [place] [address] 07775- 3928 Dec, Severe episode of recurrent major depressive disorder, without psychotic features F33.2 ; WILMA (generalized anxiety disorder) F41.1 and PTSD (post-traumatic stress disorder) F43.10 [place] [id number] [place] [address] 77460- 7672 Dec, Severe episode of recurrent major depressive disorder, without psychotic features F33.2 ; WILMA (generalized anxiety disorder) F41.1 and PTSD (post-traumatic stress disorder) F43.10 [place] [id number] [place] [address] 06663- 8855 Dec, Severe episode of recurrent major depressive disorder, without psychotic features F33.2 ; WILMA (generalized anxiety disorder) F41.1 and PTSD (post-traumatic stress disorder) F43.10 [place] [id number] [place] [address] 05550- 6830 Dec, Severe episode of recurrent major depressive disorder, without psychotic features F33.2 [place] [id number] [place] [address] 51827- 2607 Dec, Severe episode of recurrent major depressive disorder, without psychotic features F33.2 ; WILMA (generalized anxiety disorder) F41.1 and PTSD (post-traumatic stress disorder) F43.10 [place] [id number] [place] [address] 13037- 4067 Dec, Severe episode of recurrent major depressive disorder, without psychotic features F33.2 ; WILMA (generalized anxiety disorder) F41.1 and PTSD (post-traumatic stress disorder) F43.10 [place] [id number] [place] [address] 24753- 7436 Dec, Severe episode of recurrent major depressive disorder, without psychotic features F33.2 and Anxiety state, unspecified F41.1 [place] [id number] [place] [address] 73105- 7782 14 Dec, 2017 Severe episode of recurrent major depressive disorder, without psychotic features F33.2 and Anxiety state, unspecified F41.1 [place] [id number] [place] [address] 21321- 1102 Nov, Depression, major, recurrent, moderate F33.1 and Anxiety state, unspecified F41.1 [place] [id number] [place] [address] 02703- 1564 Nov, Depression, major, recurrent, moderate F33.1 and Anxiety state, unspecified F41.1 [place] [id number] [place] [address] 00701- 8068 Oct, Depression, major, recurrent, moderate F33.1 and Anxiety state, unspecified F41.1 [place] [id number] [place] [address] 6294 Oct, Depression, major, recurrent, moderate F33.1 and Post- cholecystectomy syndrome K91.5 [place] [id number] [place] [address] 4416 Oct, Depression, major, recurrent, moderate F33.1 and Anxiety state, unspecified F41.1 [place] [id number] [place] [address] 40424- 7807 Sep, Depression, major, recurrent, moderate F33.1 and Anxiety state, unspecified F41.1 [place] [id number] [place] [address] 65095- 2500 Sep, Depression, major, recurrent, moderate F33.1 and Anxiety state, unspecified F41.1 [place] [id number] [place] [address] 17464- 2209 Sep, Depression, major, recurrent, moderate F33.1 and Anxiety state, unspecified F41.1 [place] [id number] [place] [address] 2518 Sep, Diarrhea, unspecified type R19.7 [place] [id number] [place] [address] 44601- 8271 Aug, Depression, major, recurrent, moderate F33.1 and Anxiety state, unspecified F41.1 [place] [id number] [place] [address] 37070- 1333 Aug, Depression, major, recurrent, moderate F33.1 and Anxiety state, unspecified F41.1 [place] [id number] [place] [address] 7977 Jul, Depression, major, recurrent, moderate F33.1 and Anxiety state, unspecified F41.[id number] [place] [address] 78576- 6336 Jun, Depression, major, recurrent, moderate F33.1 and Anxiety state, unspecified F41.1 [place] [id number] [place] [address] 37964- 2717 Jun, Generalized abdominal pain R10.84 ; Diarrhea, unspecified type R19.7 ; Acute cystitis without hematuria N30.00 ; Abdominal bloating R14.0 and Elevated blood pressure reading R03.0 [place] [id number] [place] [address] 41309- 7736 Jun, Depression, major, recurrent, moderate F33.1 and Anxiety state, unspecified F41.1 [place] [id number] [place] [address] 97322- 2696 May, Depression, major, recurrent, moderate F33.1 and Anxiety state, unspecified F41.1 [place] [id number] [place] [address] 15977- 2115 May, Elevated lymphocytes D72.820 [place] [id number] [place] [address] 38133- 5636 May, Elevated lymphocytes D72.820 [place] [id number] [place] [address] 26093- 7079 May, BMI 35.0-35.9,adult Z68.35 ; Other fatigue R53.83 ; Pelvic pain R10.2 ; Tobacco use Z72.0 and Chronic reflux esophagitis K21.0 [place] [id number] [place] [address] 99686- 7763 Apr, [place] [id number] [place] [address] 91716- 1097 Apr, Depression, major, recurrent, moderate F33.1 and Anxiety state, unspecified F41.1 [place] [id number] [place] [address] 61507- 1488 Apr, Depression, major, recurrent, moderate F33.1 and Anxiety state, unspecified F41.1 [place] [id number] [place] [address] 12199- 2093 Apr, [place] [id number] [place] [address] 31586- 2823 March, Major depressive disorder, recurrent episode, mild F33.0 and Anxiety state, unspecified F41.1 [facility] [id number] [place] [address] 87273 -6457 March, Sore throat J02.9 and Submandibular lymphadenopathy R59.0 [place] [id number] [place] [address] 88817- 7793 Dec, Major depressive disorder, recurrent episode, mild F33.0 and Anxiety state, unspecified F41.1 [place] [id number] [place] [address] 32227- 4738 Dec, Major depressive disorder, recurrent episode, mild F33.0 and Anxiety state, unspecified F41.1 [place] [id number] [place] [address] 08932- 1432 Dec, Major depressive disorder, recurrent episode, mild F33.0 and Anxiety state, unspecified F41.1 [place] [id number] [place] [address] 12530- 5868 Sep, Major depressive disorder, recurrent episode, mild F33.0 and Anxiety state, unspecified F41.1 [place] [id number] [place] [address] 15270- 9689 Sep, Major depressive disorder, recurrent episode, moderate F33.1 and Anxiety state, unspecified F41.1 [place] [id number] [place] [address] 07700- 5976 Aug, Major depressive disorder, recurrent episode, moderate F33.1 and Anxiety state, unspecified F41.1 [place] [id number] [place] [address] 55003- 4143 Aug, Major depressive disorder, recurrent episode, moderate F33.1 and Anxiety state, unspecified F41.1 [place] [address], [place] [address]- 8748 Jul, Major depressive disorder, recurrent episode, moderate F33.1 and Anxiety state, unspecified F41.1 [place] [id number] [place] [address] 71567- 4021 Jul, Major depressive disorder, recurrent episode, moderate F33.1 and Anxiety state, unspecified F41.1 [place] [id number] [place] [address] 44328- 5175 Jun, Major depressive disorder, recurrent episode, moderate F33.1 and Anxiety state, unspecified F41.1 [place] [address], [place] [address]- 6443 Jun, Major depressive disorder, recurrent episode, moderate F33.1 and Anxiety state, unspecified F41.1 [place] [id number] [place] [address] 48982- 4739 May, Major depressive disorder, recurrent episode, moderate F33.1 and Anxiety state, unspecified F41.1 [place] [address], [place] [address]- 5648 Apr, Major depressive disorder, recurrent episode, moderate F33.1 and Anxiety state, unspecified F41.1 [place] [address], [place] [address]- 8830 Apr, Major depressive disorder, recurrent episode, moderate F33.1 and Anxiety state, unspecified F41.1 [place] [id number] [place] [address] 53046- 6844 Dec, Major depressive disorder, recurrent episode, moderate F33.1 and Anxiety state, unspecified F41.1 [place] [address] [address]- 2315 Dec, Major depressive disorder, recurrent episode, moderate F33.1 and Anxiety state, unspecified F41.1 [facility] [id number] [place] [address] 90413 -4586 Dec, Pharyngitis J02.9 and Acute frontal sinusitis J01.10 [facility] [place] [id number] [place] [address] 54490- 6308 Nov, Bilateral occipital neuralgia M54.81 and Neck muscle spasm M62.838 [facility] [place] [id number] [place] [address] 62104- 5718 Nov, Major depressive disorder, recurrent episode, moderate F33.1 and Anxiety state, unspecified F41.1 [facility] [place] [id number] [place] [address] 81594- 0917 Sep, Major depressive disorder, recurrent episode, moderate F33.1 and Anxiety state, unspecified F41.1 [place] [id number] [place] [address] 42430- 9425 Aug, Major depressive disorder, recurrent episode, moderate F33.1 and Anxiety state, unspecified F41.1 [place] [id number] [place] [address] 30589- 6639 Jul, Abdominal pain 789.00 ; Hematochezia 578.1 and Weight loss 783.21 [place] [id number] [place] [address] 81936- 8783 May, [place] [id number] [place] [address] 10887- 4219 March, [place] [id number] [place] [address] 67480- 0274 March, [place] [id number] [place] [address] 67647- 8201 Jan, [place] [id number] [place] [address] 14085- 8641 Jan, [facility] [place] [facility] [address] [id number] [place] [address]- 2827 Dec, 2014 [facility] [place] [facility] [address] [id number] [place] [address]- 1120 Dec, 2014 [facility] [place] [facility] [address] [id number] [place] [address]- 7846 Dec, 2014 [facility] [place] [facility] [address] [id number] [place] [address]- 2244 Dec, 2014 [facility] [place] [facility] [address] [id number] [place] [address]- 1592 Dec, 2014 [facility] [place] [facility] [address] [id number] [place] [address]- 7166 Dec, 2014 [facility] [place] [facility] [address] [facility] [id number] [place] [address]- 5184 Jul, 2013 [facility] [place] [facility] [address] [id number], [place] [address]- 6964 Jul, 2013 [facility] [place] [facility] [address] [id number] [place] [address]- 2544 Jul, 2013 [facility] [place] [facility] [address] [id number] [place] [address]- 9907 Jul, 2013 [facility] [place] [facility] [address] [facility] [id number], [place] [address]- 2544 10 Jul, 2013 [facility] [place] [facility] [address] [id number], [place] [address]- 2549 10 Jul, 2013 [facility] [place] [facility] [address] [id number] [place] [address]- 2545 Jul, 2013 [facility] [place] [facility] [address] [id number] [place] [address]- 2540 Jul, 2013 [facility] [place] [facility] [address] [id number], [place] [address]- 2545 Jul, 2013 [facility] [place] [facility] [address] [id number], [place] [address]- 7376 Jul, [facility] [place] [facility] [address] [id number] [place] [address]- 2019 Jul, [facility] [place] [facility] [address] [id number] [place] [address]- 5234 Jul, [facility] [place] [facility] [address] [id number] [place] [address]- 6853 May, [facility] [place] [facility] [address] [id number] [place] [address]- 5673 May, [facility] [place] [facility] [address] [id number] [place] [address]- 0082 Apr, [facility] [place] [facility] [address] [id number] [place] [address]- 4866 Apr, [facility] [place] [facility] [address] [id number] [place] [address]- 1394 Apr, [facility] [place] [facility] [address] [id number] [place] [address]- 6980 Apr, [facility] [place] [facility] [address] [id number] [place] [address]- 5886 March, [facility] [place] [facility] [address] [id number] [place] [address]- 5053 March, [facility] [place] [facility] [address] [id number] [place] [address]- 6323 Jan, [facility] [place] [facility] [address] [id number] [place] [address]- 8722 Jan, [facility] [place] [facility] [address] [id number] [place] [address]- 1634 Jan, [facility] [place] [facility] [address] [id number] [place] [address]- 7476 Jan, [facility] [place] [facility] [address] [id number] [place] [address]- 3388 Dec, [facility] [place] [facility] [address] [id number] [place] [address]- 1131 25 Dec, 2013 [facility] [place] [facility] [address] [id number] [place] [address]- 0899 18 Dec, 2013 [facility] [place] [facility] [address] [id number] [place] [address]- 1753 18 Dec, 2013 [facility] [place] [facility] [address] [id number] [place] [address]- 3461 15 Dec, 2013 [facility] [place] [facility] [address] [id number] [place] [address]- 7736 14 Dec, 2013 [facility] [place] [facility] [address] [id number] [place] [address]- 7749 13 Dec, 2013 [facility] [place] [facility] [address] [id number] [place] [address]- 6014 13 Dec, 2013 [facility] [place] [facility] [address] [id number] [place] [address]- 5190 12 Dec, 2013 [facility] [place] [facility] [address] [id number] [place] [address]- 6798 12 Dec, 2013 [facility] [place] [facility] [address] [id number] [place] [address]- 2666 05 Dec, 2013 [facility] [place] [facility] [address] [id number] [place] [address]- 0984 05 Dec, 2013 [facility] [place] [facility] [address] [id number] [place] [address]- 0767 03 Dec, 2013 [facility] [place] [facility] [address] [id number] [place] [address]- 0887 Dec, [facility] [place] [facility] [address] [id number] [place] [address]- 6140 Dec, [facility] [place] [facility] [address] [id number] [place] [address]- 1076 Dec, [facility] [place] [facility] [address] [id number] [place] [address]- 8644 Dec, [facility] [place] [facility] [address] [id number] [place] [address]- 8432 Dec, [facility] [place] [facility] [address] [id number] [place] [address]- 5124 Nov, [facility] [place] [facility] [address] [id number] [place] [address]- 7294 Nov, [facility] [place] [facility] [address] [id number] [place] [address]- 9491 Nov, [facility] [place] [facility] [address] [id number] [place] [address]- 7306 Nov, [facility] [place] [facility] [address] [id number] [place] [address]- 4388 Nov, [facility] [place] [facility] [address] [id number] [place] [address]- 8939 Nov, [facility] [place] [facility] [address] [id number] [place] [address]- 5121 Nov, [facility] [place] [facility] [address] [id number], [place] [address]- 4596 Nov, [facility] [place] [facility] [address] [id number] [place] [address]- 0687 Oct, [facility] [place] [facility] [address] [id number], [place] [address]- 3659 Oct, [facility] [place] [facility] [address] [id number], [place] [address] Oct, [facility] [place] [facility] [address] [id number] [place] [address] Oct, [facility] [place] [facility] [address] [id number], [place] [address] Oct, [facility] [place] [facility] [address] [id number] [place] [address] Oct, [facility] [place] [facility] [address] [id number] [place] [address] Sep, [facility] [address] [id number] [place] [address] Sep, [facility] [place] [facility] [address] [id number] [place] [address] Sep, [facility] [address] [id number] [place] [address] Sep, [facility] [place] [facility] [address] [id number] [place] [address] Aug, [facility] [address] [id number] [place] [address] Aug, [facility] [place] [facility] [address] [id number] [place] [address] Aug, [facility] [place] [facility] [address] [id number] [place] [address] Aug, [facility] [address] [id number] [place] [address] Jul, [facility] [place] [facility] [address] [id number] [place] [address] Jul, [facility] [address] [facility] [id number] [place] [address] Jun, [facility] [place] [facility] [address] [id number] [place] [address] Jun, [facility] [place] [facility] [address] [id number] [place] [address] Apr, [facility] [place] [facility] [address] [id number] [place] [address] Apr, [facility] [place] [facility] [address] [id number] [place] [address] 15 Apr, 2013 [facility] [place] [facility] [address] [id number] [place] [address] Apr, [facility] [address] [id number] [place] [address] March, [facility] [address] [id number] [place] [address] March, [facility] [address] [id number] [place] [address] March, [facility] [place] [facility] [address] [id number] [place] [address] Jan, [facility] [address] [id number] [place] [address] Jan, [facility] [address] [address] [id number] [place] [address] Dec, [facility] [address] [id number] [place] [address] Dec, [facility] [address] [id number] [place] [address] Dec, [facility] [address] [id number] [place] [address] Dec, [facility] [address] [id number] [place] [address] Dec, [facility] [address] [id number] [place] [address] Dec, [facility] [place] [facility] [address] [id number], [place] [address] Nov, [facility] [place] [facility] [address] [id number] [place] [address] Nov, [facility] [place] [facility] [address] [id number] [place] [address] Oct, [facility] [place] [facility] [address] [id number] [place] [address] Oct, [facility] [place] [facility] [address] [id number] [place] [address] Oct, [facility] [place] [facility] [address] [id number] [place] [address] Oct, [facility] [place] [facility] [address] [id number] [place] [address] Oct, [facility] [place] [facility] [address] [facility] [id number] [place] [address] Oct, [facility] [place] [facility] [address] [id number] [place] [address] Oct, [facility] [place] [facility] [address] [id number] [place] [address] Oct, [facility] [place] [facility] [address] [id number] [place] [address] Oct, [facility] [place] [facility] [address] [facility] [id number] [place] [address] Oct, [facility] [place] [facility] [address] [id number] [place] [address] Sep, [facility] [place] [facility] [address] [id number] [place] [address] Sep, [facility] [place] [facility] [address] [facility] [id number] [place] [address] Sep, [facility] [place] [facility] [address] [facility] [id number] [place] [address] Sep, [facility] [place] [facility] [address] [id number], [place] [address] Aug, [facility] [place] [facility] [address] [id number] [place] [address] Aug, [facility] [place] [facility] [address] [facility] [id number], [place] [address] Aug, [facility] [place] [facility] [address] [facility] [id number], [place] [address] Jul, [facility] [place] [facility] [address] [id number] [place] [address] Jun, [facility] [place] [facility] [address] [id number] [place] [address] Jun, [facility] [place] [facility] [address] [id number] [place] [address] May, [facility] [place] [facility] [address] [id number] [place] [address] Apr, [facility] [place] [facility] [address] [id number] [place] [address] March, [facility] [place] [facility] [address] [id number] [place] [address] Jan, [facility] [place] [facility] [address] [id number] [place] [address] Dec, [facility] [place] [facility] [address] [id number] [place] [address] Dec, [facility] [place] [facility] [address] [id number] [place] [address] Nov, [facility] [place] [facility] [address] [id number] [place] [address] Oct, [facility] [place] [facility] [address] [id number] [place] [address] Oct, [facility] [place] [facility] [address] [id number] [place] [address] Sep, [facility] [place] [facility] [address] [id number] [place] [address] Aug, [facility] [place] [facility] [address] [id number] [place] [address] 17 Dec, 2010 [facility] [place] [facility] [address] [id number] [place] [address] Oct, [facility] [place] [facility] [address] [id number], [place] [address] Oct, [facility] [place] [id number] [address] Oct, [facility] [place] [address] [facility] [id number], [place] [address] Jun, [facility] [place] [id number], [place] [address] Jun, [facility] [place] [id number], [place] [address] Oct, [facility] [place] [id number], [place] [address] Sep, [facility] [place] [id number], [place] [address] Sep, [facility] [place] [id number], [place] [address] Sep, [facility] [place] [id number], [place] [address] Aug, [facility] [place] [address] [id number] [address] Dec, IMMUNIZATIONS No Known Immunizations SOCIAL HISTORY Never Assessed REASON FOR VISIT Follow-up Depression/Anxiety PLAN OF CARE Activity Details Follow Up 3 Weeks Reason: Follow-up VITAL SIGNS MEDICATIONS Unknown Medications RESULTS No Results PROCEDURES Procedure Date Ordered Result Body Site Psychotherapy, patient &/family, 45 minutes, established patient April 26, 2018 INSTRUCTIONS MEDICATIONS ADMINISTERED No Known Medications [...]
--- OUTSIDE RECORDS SUMMARY | 2019-01-13 21:52 | XMS REPORT ---
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 34135334 Problem Elevated lymphocytes D72.820 Active 93370107 Problem Prediabetes R73.03 Active 696319699 Problem Chronic reflux esophagitis K21.0 Active 001684826 Problem Chronic fatigue R53.82 Active 76070636 Problem BMI 35.0-35.9,adult Z68.35 Active 604242468 Problem Major depressive disorder, recurrent episode, moderate F33.1 Active 833421164 Problem Seasonal allergic rhinitis due to pollen J30.1 Active 55219945 Problem WILMA (generalized anxiety disorder) F41.1 Active 89370604 Problem Severe episode of recurrent major depressive disorder, without psychotic features F33.2 Active 02715650 Problem Carpal tunnel syndrome of right wrist G56.01 Active 01817196 Problem PTSD (post-traumatic stress disorder) F43.10 Active 06486778 ALLERGIES No Information ENCOUNTERS Encounter Location Date Diagnosis [facility] [address] [address] Aug, [facility] [address] [address] Jul, [facility] [id number] [place] [address] 87546- 4590 Jul, [facility] [address] [address] Jun, [facility] [id number] [place] [address] 48127- 2626 Jun, Encounter to establish care Z76.89 ; Diarrhea, unspecified type R19.7 ; Carpal tunnel syndrome of right wrist G56.01 ; Tobacco use Z72.0 ; Major depressive disorder, recurrent episode, moderate F33.1 and Seasonal allergic rhinitis due to pollen J30.1 [place] [address] [address] Jun, Severe episode of recurrent major depressive disorder, without psychotic features F33.2 ; WILMA (generalized anxiety disorder) F41.1 and PTSD (post-traumatic stress disorder) F43.10 [place] [id number] [place] [address] 47267- 2726 May, Severe episode of recurrent major depressive disorder, without psychotic features F33.2 ; WILMA (generalized anxiety disorder) F41.1 and PTSD (post-traumatic stress disorder) F43.10 [place] [id number] [place] [address] 63001- 5771 May, Scalp cyst L72.9 [place] [id number] [place] [address] 96534- 0893 May, Severe episode of recurrent major depressive disorder, without psychotic features F33.2 ; WILMA (generalized anxiety disorder) F41.1 and PTSD (post-traumatic stress disorder) F43.10 [place] [address] [place] [address] 14317- 1353 Apr, Severe episode of recurrent major depressive disorder, without psychotic features F33.2 ; WILMA (generalized anxiety disorder) F41.1 and PTSD (post-traumatic stress disorder) F43.10 [place] [address] [place] [address] 50541- 9681 March, Severe episode of recurrent major depressive disorder, without psychotic features F33.2 ; WILMA (generalized anxiety disorder) F41.1 and PTSD (post-traumatic stress disorder) F43.10 [place] [address] [address] March, Severe episode of recurrent major depressive disorder, without psychotic features F33.2 ; WILMA (generalized anxiety disorder) F41.1 and PTSD (post-traumatic stress disorder) F43.10 [place] [address] [address] March, [place] [address] [address] Jan, Severe episode of recurrent major depressive disorder, without psychotic features F33.2 ; WILMA (generalized anxiety disorder) F41.1 and PTSD (post-traumatic stress disorder) F43.10 [place] [address] [address] Jan, Carpal tunnel syndrome of right wrist G56.01 [place] [id number] [place] [address] 39641- 5032 Jan, Severe episode of recurrent major depressive disorder, without psychotic features F33.2 ; WILMA (generalized anxiety disorder) F41.1 and PTSD (post-traumatic stress disorder) F43.10 [place] [address] [address] 9[address] Dec, Severe episode of recurrent major depressive disorder, without psychotic features F33.2 ; WILMA (generalized anxiety disorder) F41.1 and PTSD (post-traumatic stress disorder) F43.10 [place] [address] [address] 84[address] Dec, Severe episode of recurrent major depressive disorder, without psychotic features F33.2 ; WILMA (generalized anxiety disorder) F41.1 and PTSD (post-traumatic stress disorder) F43.10 [place] [address] [address]- 4193 Dec, Severe episode of recurrent major depressive disorder, without psychotic features F33.2 ; WILMA (generalized anxiety disorder) F41.1 and PTSD (post-traumatic stress disorder) F43.10 [place] [address] [address] 3005 Dec, Severe episode of recurrent major depressive disorder, without psychotic features F33.2 [place] [id number] [place] [address] 71190- 3462 Dec, Severe episode of recurrent major depressive disorder, without psychotic features F33.2 ; WILMA (generalized anxiety disorder) F41.1 and PTSD (post-traumatic stress disorder) F43.10 [place] [id number] [place] [address] 29920- 6850 Dec, Severe episode of recurrent major depressive disorder, without psychotic features F33.2 ; WILMA (generalized anxiety disorder) F41.1 and PTSD (post-traumatic stress disorder) F43.10 [place] [id number] [place] [address] 920758- 8514 Dec, Severe episode of recurrent major depressive disorder, without psychotic features F33.2 and Anxiety state, unspecified F41.1 [place] [id number] [place] [address] 52600- 7112 Dec, Severe episode of recurrent major depressive disorder, without psychotic features F33.2 and Anxiety state, unspecified F41.1 [place] [id number] [place] [address] 55771- 6739 Nov, Depression, major, recurrent, moderate F33.1 and Anxiety state, unspecified F41.1 [place] [id number] [place] [address] 51949- 6010 Nov, Depression, major, recurrent, moderate F33.1 and Anxiety state, unspecified F41.1 [place] [id number] [place] [address] 91291- 0246 Oct, Depression, major, recurrent, moderate F33.1 and Anxiety state, unspecified F41.1 [place] [id number] [place] [address] Oct, Depression, major, recurrent, moderate F33.1 and Post- cholecystectomy syndrome K91.5 [place] [address] 80776- 0246 Oct, Depression, major, recurrent, moderate F33.1 and Anxiety state, unspecified F41.1 [place] [id number] [place] [address]- [address]2 Sep, Depression, major, recurrent, moderate F33.1 and Anxiety state, unspecified F41.1 [place] [id number] [place] [address] Sep, Depression, major, recurrent, moderate F33.1 and Anxiety state, unspecified F41.1 [place] [id number] [place] [address] Sep, Depression, major, recurrent, moderate F33.1 and Anxiety state, unspecified F41.1 [place] [id number] [place] [address] Sep, Diarrhea, unspecified type R19.7 [place] [id number] [place] [address] Aug, Depression, major, recurrent, moderate F33.1 and Anxiety state, unspecified F41.1 [place] [id number] [place] [address] Aug, Depression, major, recurrent, moderate F33.1 and Anxiety state, unspecified F41.1 [place] [id number] [place] [address] Jul, Depression, major, recurrent, moderate F33.1 and Anxiety state, unspecified F41.1 [place] [id number] [place] [address] Jun, Depression, major, recurrent, moderate F33.1 and Anxiety state, unspecified F41.1 [place] [address] [place] [address] Jun, Generalized abdominal pain R10.84 ; Diarrhea, unspecified type R19.7 ; Acute cystitis without hematuria N30.00 ; Abdominal bloating R14.0 and Elevated blood pressure reading R03.0 [place] [id number] [place] [address] 18287- 5109 Jun, Depression, major, recurrent, moderate F33.1 and Anxiety state, unspecified F41.1 [place] [id number] [place] [address] 14034- 8633 May, Depression, major, recurrent, moderate F33.1 and Anxiety state, unspecified F41.1 [place] [address] [address]- 1376 May, Elevated lymphocytes D72.820 [place] [address] 91778- 2061 May, Elevated lymphocytes D72.820 [place] [address] 32946- 2812 May, BMI 35.0-35.9,adult Z68.35 ; Other fatigue R53.83 ; Pelvic pain R10.2 ; Tobacco use Z72.0 and Chronic reflux esophagitis K21.0 [place] [id number] [place] [address] 42642- 1019 Apr, [place] [id number] [place] [address] 52910- 9073 Apr, Depression, major, recurrent, moderate F33.1 and Anxiety state, unspecified F41.1 [place] [address] [place] [address] 22215- 5632 Apr, Depression, major, recurrent, moderate F33.1 and Anxiety state, unspecified F41.1 [place] [id number] [place] [address] 85281- 5241 Apr, [place] [id number] [place] [address] 33791- 0377 March, Major depressive disorder, recurrent episode, mild F33.0 and Anxiety state, unspecified F41.1 [facility] IN [facility] [address] [address] March, Sore throat J02.9 and Submandibular lymphadenopathy R59.0 [facility] [address] [place] [address] 13675- 9590 Dec, Major depressive disorder, recurrent episode, mild F33.0 and Anxiety state, unspecified F41.1 [place] [id number] [place] [address] 01545- 5448 Dec, Major depressive disorder, recurrent episode, mild F33.0 and Anxiety state, unspecified F41.1 [place] [id number] [place] [address] 40644- 5715 Dec, Major depressive disorder, recurrent episode, mild F33.0 and Anxiety state, unspecified F41.1 [place] [id number] [place] [address] 19093- 8725 Sep, Major depressive disorder, recurrent episode, mild F33.0 and Anxiety state, unspecified F41.1 [place] [id number] [place] [address] 44434- 0583 Sep, Major depressive disorder, recurrent episode, moderate F33.1 and Anxiety state, unspecified F41.1 [place] [address] [address]- 4848 Aug, Major depressive disorder, recurrent episode, moderate F33.1 and Anxiety state, unspecified F41.1 [place] [address] [place] [address] 36596- 5834 Aug, Major depressive disorder, recurrent episode, moderate F33.1 and Anxiety state, unspecified F41.1 [place] [address] [place] [address] 39130- 1539 Jul, Major depressive disorder, recurrent episode, moderate F33.1 and Anxiety state, unspecified F41.1 [place] [id number] [place] [address] 14115- 7768 Jul, Major depressive disorder, recurrent episode, moderate F33.1 and Anxiety state, unspecified F41.1 [place] [id number] [place] [address] 45162- 5507 Jun, Major depressive disorder, recurrent episode, moderate F33.1 and Anxiety state, unspecified F41.1 [place] [id number] [place] [address] 08840- 3914 Jun, Major depressive disorder, recurrent episode, moderate F33.1 and Anxiety state, unspecified F41.1 [place] [address] 12618- 4698 May, Major depressive disorder, recurrent episode, moderate F33.1 and Anxiety state, unspecified F41.1 [place] [id number] [place] [address] 98201- 3128 Apr, Major depressive disorder, recurrent episode, moderate F33.1 and Anxiety state, unspecified F41.1 [place] [id number] [place] [address] 39520- 5432 Apr, Major depressive disorder, recurrent episode, moderate F33.1 and Anxiety state, unspecified F41.1 [place] [id number] [place] [address] 37569- 9656 Dec, Major depressive disorder, recurrent episode, moderate F33.1 and Anxiety state, unspecified F41.1 [place] [id number] [place] [address] 53640- 9060 Dec, Major depressive disorder, recurrent episode, moderate F33.1 and Anxiety state, unspecified F41.1 [facility] [place] [id number] [place] [address] 48166 -8842 Dec, Pharyngitis J02.9 and Acute frontal sinusitis J01.10 [place] [address] [place] [address] 80169- 4474 Nov, Bilateral occipital neuralgia M54.81 and Neck muscle spasm M62.838 [facility] [address] [address]- 2166 Nov, Major depressive disorder, recurrent episode, moderate F33.1 and Anxiety state, unspecified F41.1 [facility] [address] [address]- 0496 Sep, Major depressive disorder, recurrent episode, moderate F33.1 and Anxiety state, unspecified F41.1 [facility] [id number] [place] [address] 73588- 4577 Aug, Major depressive disorder, recurrent episode, moderate F33.1 and Anxiety state, unspecified F41.1 [facility] [id number] [place] [address] 30825- 4821 Jul, Abdominal pain 789.00 ; Hematochezia 578.1 and Weight loss 783.21 [facility] [id number] [place] [address] 59349- 7369 May, [facility] [id number] [place] [address] 45959- 9342 March, [facility] [id number] [place] [address] 88204- 0068 March, [facility] [address] [address]- 6427 Jan, [facility] [id number] [place] [address] 17676- 1702 Jan, [facility] [address] [address]- 9790 Dec, [facility] [id number] [place] [address] 17693- 7611 Dec, [facility] [address] [address] 8140 Dec, [facility] [place] [facility] [address] [id number] [place] [address]- 8634 06 Dec, 2014 [facility] [place] [facility] [address] [id number] [place] [address]- 3628 Dec, 2014 [facility] [place] [facility] [address] [id number] [place] [address]- 2546 05 Dec, 2014 [facility] [place] [facility] [address] [id number] [place] [address] 2540 Jul, 2013 [facility] [place] [facility] [address] [id number] [place] [address] 2545 25 Jul, 2013 [facility] [place] [facility] [address] [id number] [place] [address] 2546 11 Jul, 2013 [facility] [place] [facility] [address] [id number] [place] [address]- 1707 11 Jul, 2013 [facility] [place] [facility] [address] [id number] [place] [address]- 2544 10 Jul, 2013 [facility] [place] [facility] [address] [id number] [place] [address] 2545 10 Jul, 2013 [facility] [place] [facility] [address] [id number] [place] [address] 2542 Jul, 2013 [facility] [place] [facility] [address] [id number] [place] [address] 2543 09 Sep, 2013 [facility] [place] [facility] [address] [id number] [place] [address] 2540 09 Sep, 2013 [facility] [place] [facility] [address] [id number] [place] [address] 2544 09 Sep, 2013 [facility] [place] [facility] [address] [id number] [place] [address] 2546 Sep, 2013 [facility] [place] [facility] [address] [id number] [place] [address]- 2545 04 Jul, 2013 [facility] [place] [facility] [address] [id number] [place] [address]- 3775 May, [facility] [place] [facility] [address] [id number] [place] [address]- 2436 May, [facility] [place] [facility] [address] [id number] [place] [address]- 9140 Apr, [facility] [place] [facility] [address] [id number] [place] [address]- 9169 Apr, [facility] [place] [facility] [address] [id number] [place] [address]- 3445 Apr, [facility] [place] [facility] [address] [id number] [place] [address]- 3078 Apr, [facility] [place] [facility] [address] [id number] [place] [address]- 7218 March, [facility] [place] [facility] [address] [id number] [place] [address]- 1536 March, [facility] [place] [facility] [address] [id number] [place] [address]- 5078 Jan, [facility] [place] [facility] [address] [id number] [place] [address]- 4808 Jan, [facility] [place] [facility] [address] [id number] [place] [address]- 9803 Jan, [facility] [place] [facility] [address] [id number] [place] [address]- 5142 Jan, [facility] [place] [facility] [address] [id number] [address]- 2157 Dec, [facility] [place] [facility] [address] [id number] [place] [address]- 2781 Dec, [facility] [place] [facility] [address] [id number] [place] [address]- 7982 Dec, [facility] [place] [facility] [address] [id number] [place] [address]- 1861 Dec, [facility] [place] [facility] [address] [id number] [place] [address]- 8951 15 Dec, 2013 [facility] [place] [facility] [address] [id number] [place] [address]- 5106 14 Dec, 2013 [facility] [place] [facility] [address] [id number] [place] [address]- 9481 13 Dec, 2013 [facility] [place] [facility] [address] [id number] [place] [address]- 5803 13 Dec, 2013 [facility] [place] [facility] [address] [id number] [place] [address]- 0792 12 Dec, 2013 [facility] [place] [facility] [address] [id number] [place] [address]- 1468 12 Dec, 2013 [facility] [place] [facility] [address] [id number] [place] [address]- 0468 05 Dec, 2013 [facility] [place] [facility] [address] [id number] [place] [address]- 8304 05 Dec, 2013 [facility] [place] [facility] [address] [id number] [place] [address]- 9821 Dec, [facility] [place] [facility] [address] [id number] [place] [address]- 1857 Dec, [facility] [place] [facility] [address] [facility] [id number] [place] [address]- 3438 Dec, [facility] [place] [facility] [address] [id number] [place] [address]- 8823 Dec, [facility] [place] [facility] [address] [id number] [place] [address]- 4343 Dec, [facility] [place] [facility] [address] [id number] [place] [address]- 0166 Dec, [facility] [place] [facility] [address] [id number] [place] [address]- 3704 Nov, [facility] [place] [facility] [address] [id number] [place] [address]- 3720 Nov, [facility] [address] [id number] [place] [address]- 6544 Nov, [facility] [place] [facility] [address] [id number] [place] [address]- 8743 Nov, [facility] [place] [facility] [address] [id number] [place] [address]- 8309 Nov, [facility] [place] [facility] [address] [id number] [place] [address]- 7029 Nov, [facility] [place] [facility] [address] [id number] [place] [address]- 3294 Nov, [facility] [place] [facility] [address] [id number] [place] [address]- 7056 Nov, [facility] [place] [facility] [address] [id number] [place] [address]- 2072 Oct, [facility] [place] [facility] [address] [id number] [place] [address]- 6503 Oct, [facility] [place] [facility] [address] [id number] [place] [address]- 6801 Oct, [facility] [place] [facility] [address] [id number] [place] [address]- 6991 Oct, [facility] [place] [facility] [address] [id number] [address]- 4908 Oct, [facility] [place] [facility] [address] [id number] [address]- 5733 Oct, [facility] [place] [facility] [address] [id number] [place] [address]- 1703 Sep, [facility] [place] [facility] [address] [id number] [place] [address]- 4996 Sep, [facility] [place] [facility] [address] [id number] [address]- 5694 Sep, [facility] [place] [facility] [address] [id number] [address]- 1688 Sep, [facility] [address] [id number] [place] [address]- 6970 Aug, [facility] [place] [facility] [address] [id number] [place] [address]- 6413 Aug, [facility] [place] [facility] [address] [facility] [id number] [place] [address]- 8919 Aug, [facility] [place] [facility] [address] [id number] [place] [address]- 2370 Aug, [facility] [place] [facility] [address] [id number] [place] [address]- 5205 Jul, [facility] [place] [facility] [address] [id number] [place] [address]- 9581 Jul, [facility] [id number] [address] Jun, [facility] [place] [facility] [address] [id number] [place] [address] Jun, [facility] [place] [facility] [address] [id number] [address] Apr, [facility] [place] [facility] [address] [facility] [id number] [place] [address] Apr, [facility] [place] [facility] [address] [id number] [address] Apr, [facility] [place] [facility] [address] [id number] [address] Apr, [facility] [place] [facility] [address] [id number] [place] [address] March, [facility] [place] [facility] [address] [facility] [id number] [place] [address] March, [facility] [place] [facility] [address] [id number] [place] [address] March, [facility] [place] [facility] [address] [id number] [place] [address] Jan, [facility] [address] [id number] [place] [address] Jan, [facility] [place] [facility] [address] [id number] [place] [address] Dec, [facility] [place] [facility] [address] [id number] [place] [address] Dec, [facility] [place] [facility] [address] [id number] [place] [address] Dec, [facility] [place] [facility] [address] [id number] [place] [address] Dec, [facility] [place] [facility] [address] [id number] [place] [address] Dec, [facility] [place] [facility] [address] [id number] [place] [address] Dec, [facility] [place] [facility] [address] [id number] [place] [address] Nov, [facility] [address] [id number] [place] [address] Nov, [facility] [place] [facility] [address] [id number] [place] [address] Oct, [facility] [place] [facility] [address] [id number] [place] [address] Oct, [facility] [place] [facility] [address] [id number] [place] [address] Oct, [facility] [place] [facility] [address] [id number] [place] [address] Oct, [facility] [place] [facility] [address] [id number] [place] [address] Oct, [facility] [place] [facility] [address] [id number] [address] Oct, [facility] [place] [facility] [address] [id number] [place] [address] Oct, [facility] [place] [facility] [address] [id number] [place] [address] Oct, [facility] [place] [facility] [address] [facility] [id number] [place] [address] Oct, [facility] [place] [facility] [address] [id number] [place] [address] Oct, [facility] [place] [facility] [address] [id number] [place] [address] Sep, [facility] [place] [facility] [address] [id number] [place] [address] Sep, [facility] [place] [facility] [address] [facility] [id number] [place] [address] Sep, [facility] [place] [facility] [address] [id number] [address] Sep, [facility] [place] [facility] [address] [id number], [place] [address] Aug, [facility] [place] [facility] [address] [id number] [place] [address] Aug, [facility] [place] [facility] [address] [id number] [address] Aug, [facility] [place] [facility] [address] [id number] [address] Jul, [facility] [place] [facility] [address] [id number] [place] [address] Jun, [facility] [place] [facility] [address] [facility] [id number] [address] Jun, [facility] [place] [facility] [address] [facility] [id number] [address] May, [facility] [place] [facility] [address] [id number] [place] [address] Apr, [facility] [address] [id number] [place] [address] March, [facility] [place] [facility] [address] [id number] [place] [address] Jan, [facility] [address] [id number] [place] [address] Dec, [facility] [address] [id number] [place] [address] Dec, [facility] [address] [id number] [place] [address] Nov, [facility] [address] [id number] [place] [address] Oct, [facility] [address] [id number] [place] [address] Oct, [facility] [address] [id number] [place] [address] Sep, [facility] [address] [id number] [place] [address] Aug, [facility] [address] [id number] [place] [address] Dec, [facility] [address] [id number] [place] [address] Oct, [facility] [address] [id number] [place] [address] Oct, [facility] [place] [facility] [address] [id number] [place] [address] Oct, [facility] [place] [facility] [address] [id number] [place] [address] Jun, [facility] [place] [facility] [address] [id number] [place] [address] Jun, [facility] [address] [id number] [address] Oct, [facility] [id number] [address] Sep, [facility] [address] [id number] [address] Sep, [facility] [id number] [address] Sep, [facility] [id number] [address] Aug, [facility] [id number] [address] Dec, IMMUNIZATIONS No Known Immunizations SOCIAL HISTORY Never Assessed REASON FOR VISIT Follow-up Depression/Anxiety PLAN OF CARE Activity Details Follow Up 4 Weeks Reason: Follow-up VITAL SIGNS MEDICATIONS Unknown Medications RESULTS No Results PROCEDURES Procedure Date Ordered Result Body Site Psychotherapy, patient &/family, 45 minutes, established patient March 23, 2018 INSTRUCTIONS MEDICATIONS ADMINISTERED No Known Medications [...]
--- OUTSIDE RECORDS SUMMARY | 2019-01-13 21:53 | XMS REPORT ---
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 77967622 Problem Elevated lymphocytes D72.820 Active 21236659 Problem Prediabetes R73.03 Active 044646406 Problem Chronic reflux esophagitis K21.0 Active 837804094 Problem Chronic fatigue R53.82 Active 01770390 Problem BMI 35.0-35.9,adult Z68.35 Active 297088311 Problem Major depressive disorder, recurrent episode, moderate F33.1 Active 998902907 Problem Seasonal allergic rhinitis due to pollen J30.1 Active 28120557 Problem WILMA (generalized anxiety disorder) F41.1 Active 89346320 Problem Severe episode of recurrent major depressive disorder, without psychotic features F33.2 Active 07927746 Problem Carpal tunnel syndrome of right wrist G56.01 Active 96102992 Problem PTSD (post-traumatic stress disorder) F43.10 Active 66986856 ALLERGIES No Information ENCOUNTERS Encounter Location Date Diagnosis [facility] [address] [address] Aug, [facility] [address], [place] [address] Jul, [facility] [id number] [place] [address] 45509- 0273 Jul, [facility] [address], [place] [address] Jun, [facility] [id number] [place] [address]19- [address] Jun, Encounter to establish care Z76.89 ; Diarrhea, unspecified type R19.7 ; Carpal tunnel syndrome of right wrist G56.01 ; Tobacco use Z72.0 ; Major depressive disorder, recurrent episode, moderate F33.1 and Seasonal allergic rhinitis due to pollen J30.1 [place] [address], [place] [address] Jun, Severe episode of recurrent major depressive disorder, without psychotic features F33.2 ; WILMA (generalized anxiety disorder) F41.1 and PTSD (post-traumatic stress disorder) F43.10 [place] [id number] [place] [address] 10223- 8591 May, Severe episode of recurrent major depressive disorder, without psychotic features F33.2 ; WILMA (generalized anxiety disorder) F41.1 and PTSD (post-traumatic stress disorder) F43.10 [place] [id number] [place] [address] 99179- 4608 May, Scalp cyst L72.9 [place] [id number] [place] [address] 70089- 6041 May, Severe episode of recurrent major depressive disorder, without psychotic features F33.2 ; WILMA (generalized anxiety disorder) F41.1 and PTSD (post-traumatic stress disorder) F43.10 [place] [address] [place] [address] 80609- 5357 Apr, Severe episode of recurrent major depressive disorder, without psychotic features F33.2 ; WILMA (generalized anxiety disorder) F41.1 and PTSD (post-traumatic stress disorder) F43.10 [place] [address] [place] [address] 41202- 7127 March, Severe episode of recurrent major depressive disorder, without psychotic features F33.2 ; WILMA (generalized anxiety disorder) F41.1 and PTSD (post-traumatic stress disorder) F43.10 [place] [address] [address] March, Severe episode of recurrent major depressive disorder, without psychotic features F33.2 ; WILMA (generalized anxiety disorder) F41.1 and PTSD (post-traumatic stress disorder) F43.10 [place] [address] [address] March, [place] [address], [place] [address] Jan, Severe episode of recurrent major depressive disorder, without psychotic features F33.2 ; WILMA (generalized anxiety disorder) F41.1 and PTSD (post-traumatic stress disorder) F43.10 [place] [address] [address] Jan, Carpal tunnel syndrome of right wrist G56.01 [place] [id number] [place] [address] 74343- 4319 Jan, Severe episode of recurrent major depressive disorder, without psychotic features F33.2 ; WILMA (generalized anxiety disorder) F41.1 and PTSD (post-traumatic stress disorder) F43.10 [place] [address], [place] [address] Dec, Severe episode of recurrent major depressive disorder, without psychotic features F33.2 ; WILMA (generalized anxiety disorder) F41.1 and PTSD (post-traumatic stress disorder) F43.10 [place] [address], [place] [address] 4100 Dec, Severe episode of recurrent major depressive disorder, without psychotic features F33.2 ; WILMA (generalized anxiety disorder) F41.1 and PTSD (post-traumatic stress disorder) F43.10 [place] [address], [place] [address]- 0588 Dec, Severe episode of recurrent major depressive disorder, without psychotic features F33.2 ; WILMA (generalized anxiety disorder) F41.1 and PTSD (post-traumatic stress disorder) F43.10 [place] [address], [place] [address] 36[address] Dec, Severe episode of recurrent major depressive disorder, without psychotic features F33.2 [place] [id number] [place] [address] 90894- 3686 Dec, Severe episode of recurrent major depressive disorder, without psychotic features F33.2 ; WILMA (generalized anxiety disorder) F41.1 and PTSD (post-traumatic stress disorder) F43.10 [place] [id number] [place] [address] 99551- 6792 Dec, Severe episode of recurrent major depressive disorder, without psychotic features F33.2 ; WILMA (generalized anxiety disorder) F41.1 and PTSD (post-traumatic stress disorder) F43.10 [place] [id number] [place] [address] 475448- 6249 Dec, Severe episode of recurrent major depressive disorder, without psychotic features F33.2 and Anxiety state, unspecified F41.1 [place] [id number] [place] [address] 06724- 0528 Dec, Severe episode of recurrent major depressive disorder, without psychotic features F33.2 and Anxiety state, unspecified F41.1 [place] [id number] [place] [address] 27657- 8721 Nov, Depression, major, recurrent, moderate F33.1 and Anxiety state, unspecified F41.1 [place] [id number] [place] [address] 58304- 0267 Nov, Depression, major, recurrent, moderate F33.1 and Anxiety state, unspecified F41.1 [place] [id number] [place] [address] 35052- 2204 Oct, Depression, major, recurrent, moderate F33.1 and Anxiety state, unspecified F41.1 [place] [id number] [place] [address] Oct, Depression, major, recurrent, moderate F33.1 and Post- cholecystectomy syndrome K91.5 [place] [address] [address]- 9106 Oct, Depression, major, recurrent, moderate F33.1 and Anxiety state, unspecified F41.1 [place] [id number] [place] [address]- 9137 Sep, Depression, major, recurrent, moderate F33.1 and Anxiety state, unspecified F41.1 [place] [id number] [place] [address] Sep, Depression, major, recurrent, moderate F33.1 and Anxiety state, unspecified F41.1 [place] [id number] [place] [address] [address] Sep, Depression, major, recurrent, moderate F33.1 and Anxiety state, unspecified F41.1 [place] [id number] [place] [address] Sep, Diarrhea, unspecified type R19.7 [place] [id number] [place] [address] Aug, Depression, major, recurrent, moderate F33.1 and Anxiety state, unspecified F41.1 [place] [id number] [place] [address] Aug, Depression, major, recurrent, moderate F33.1 and Anxiety state, unspecified F41.1 [place] [id number] [place] [address] Jul, Depression, major, recurrent, moderate F33.1 and Anxiety state, unspecified F41.1 [place] [id number] [place] [address] Jun, Depression, major, recurrent, moderate F33.1 and Anxiety state, unspecified F41.1 [place] [address] [place] [address] Jun, Generalized abdominal pain R10.84 ; Diarrhea, unspecified type R19.7 ; Acute cystitis without hematuria N30.00 ; Abdominal bloating R14.0 and Elevated blood pressure reading R03.0 [place] [id number] [place] [address] 46602- 1125 Jun, Depression, major, recurrent, moderate F33.1 and Anxiety state, unspecified F41.1 [place] [id number] [place] [address] 29129- 2418 May, Depression, major, recurrent, moderate F33.1 and Anxiety state, unspecified F41.1 [place] [address] 75040- 4573 May, Elevated lymphocytes D72.820 [place] [address] 31809- 0041 May, Elevated lymphocytes D72.820 [place] [address] 81957- 7868 May, BMI 35.0-35.9,adult Z68.35 ; Other fatigue R53.83 ; Pelvic pain R10.2 ; Tobacco use Z72.0 and Chronic reflux esophagitis K21.0 [place] [id number] [place] [address] 43085- 8484 Apr, [place] [id number] [place] [address] 41706- 8104 Apr, Depression, major, recurrent, moderate F33.1 and Anxiety state, unspecified F41.1 [place] [id number] [place] [address] 04976- 5294 Apr, Depression, major, recurrent, moderate F33.1 and Anxiety state, unspecified F41.1 [place] [id number] [place] [address] 04607- 0522 Apr, [place] [id number] [place] [address] 26801- 4574 March, Major depressive disorder, recurrent episode, mild F33.0 and Anxiety state, unspecified F41.1 [facility] [address], [place] [address] March, Sore throat J02.9 and Submandibular lymphadenopathy R59.0 [facility] [address] [place] [address] 62764- 5417 Dec, Major depressive disorder, recurrent episode, mild F33.0 and Anxiety state, unspecified F41.1 [place] [id number] [place] [address] 56560- 1767 Dec, Major depressive disorder, recurrent episode, mild F33.0 and Anxiety state, unspecified F41.1 [place] [id number] [place] [address] 97903- 4847 Dec, Major depressive disorder, recurrent episode, mild F33.0 and Anxiety state, unspecified F41.1 [place] [id number] [place] [address] 22047- 9736 Sep, Major depressive disorder, recurrent episode, mild F33.0 and Anxiety state, unspecified F41.1 [place] [id number] [place] [address] 83270- 4167 Sep, Major depressive disorder, recurrent episode, moderate F33.1 and Anxiety state, unspecified F41.1 [place] [address], [place] [address]- 8279 Aug, Major depressive disorder, recurrent episode, moderate F33.1 and Anxiety state, unspecified F41.1 [place] [address] [place] [address] 16189- 3477 Aug, Major depressive disorder, recurrent episode, moderate F33.1 and Anxiety state, unspecified F41.1 [place] [address] [place] [address] 24135- 9034 Jul, Major depressive disorder, recurrent episode, moderate F33.1 and Anxiety state, unspecified F41.1 [place] [id number] [place] [address] 88814- 5387 Jul, Major depressive disorder, recurrent episode, moderate F33.1 and Anxiety state, unspecified F41.1 [place] [id number] [place] [address] 82348- 5433 Jun, Major depressive disorder, recurrent episode, moderate F33.1 and Anxiety state, unspecified F41.1 [place] [id number] [place] [address] 97371- 5731 Jun, Major depressive disorder, recurrent episode, moderate F33.1 and Anxiety state, unspecified F41.1 [place] [address] 05042- 5727 May, Major depressive disorder, recurrent episode, moderate F33.1 and Anxiety state, unspecified F41.1 [place] [id number] [place] [address] 47835- 8225 Apr, Major depressive disorder, recurrent episode, moderate F33.1 and Anxiety state, unspecified F41.1 [place] [id number] [place] [address] 52135- 1979 Apr, Major depressive disorder, recurrent episode, moderate F33.1 and Anxiety state, unspecified F41.1 [place] [id number] [place] [address] 98895- 4271 Dec, Major depressive disorder, recurrent episode, moderate F33.1 and Anxiety state, unspecified F41.1 [place] [id number] [place] [address] 30088- 4346 Dec, Major depressive disorder, recurrent episode, moderate F33.1 and Anxiety state, unspecified F41.1 [facility] [place] [id number] [place] [address] 45487 -3271 Dec, Pharyngitis J02.9 and Acute frontal sinusitis J01.10 [place] [id number] [place] [address] 84110- 1077 Nov, Bilateral occipital neuralgia M54.81 and Neck muscle spasm M62.838 [facility] [address], [place] [address]- 8301 Nov, Major depressive disorder, recurrent episode, moderate F33.1 and Anxiety state, unspecified F41.1 [facility] [address] [address]- 7436 Sep, Major depressive disorder, recurrent episode, moderate F33.1 and Anxiety state, unspecified F41.1 [facility] [id number] [place] [address] 24062- 6237 Aug, Major depressive disorder, recurrent episode, moderate F33.1 and Anxiety state, unspecified F41.1 [facility] [id number] [place] [address] 05446- 3356 Jul, Abdominal pain 789.00 ; Hematochezia 578.1 and Weight loss 783.21 [facility] [id number] [place] [address] 87858- 1126 May, [facility] [id number] [place] [address] 38503- 5457 March, [facility] [id number] [place] [address] 71508- 4230 March, [facility] [address], [place] [address]- 8791 Jan, [facility] [id number] [place] [address] 84369- 1155 Jan, [facility] [address], [place] [address]- 1606 Dec, [facility] [id number] [place] [address] 33965- 2454 Dec, [facility] [address] [address]- [address]32 Dec, [facility] [place] [facility] [address] [id number] [place] [address]- 3617 06 Dec, 2014 [facility] [place] [facility] [address] [id number] [place] [address]- 0470 Dec, 2014 [facility] [place] [facility] [address] [id number] [place] [address]- 2546 05 Dec, 2014 [facility] [place] [facility] [address] [id number] [place] [address] 2541 Jul, 2013 [facility] [place] [facility] [address] [id number] [place] [address] 2549 25 Jul, 2013 [facility] [place] [facility] [address] [id number] [place] [address] 2546 11 Jul, 2013 [facility] [place] [facility] [address] [id number] [place] [address]- 1554 11 Jul, 2013 [facility] [place] [facility] [address] [id number] [place] [address]- 2547 10 Jul, 2013 [facility] [place] [facility] [address] [id number] [place] [address] 2540 10 Jul, 2013 [facility] [place] [facility] [address] [id number] [place] [address] 2544 Jul, 2013 [facility] [place] [facility] [address] [id number] [place] [address] 2547 09 Sep, 2013 [facility] [place] [facility] [address] [id number] [place] [address] 2545 09 Sep, 2013 [facility] [place] [facility] [address] [id number] [place] [address] 2542 09 Sep, 2013 [facility] [place] [facility] [address] [id number] [place] [address] 2546 Sep, 2013 [facility] [place] [facility] [address] [id number] [place] [address]- 2544 04 Jul, 2013 [facility] [place] [facility] [address] [id number] [place] [address]- 1916 May, [facility] [place] [facility] [address] [id number] [place] [address]- 0510 May, [facility] [place] [facility] [address] [id number] [place] [address]- 8103 Apr, [facility] [place] [facility] [address] [id number] [place] [address]- 7552 Apr, [facility] [place] [facility] [address] [id number] [place] [address]- 3024 Apr, [facility] [place] [facility] [address] [id number] [place] [address]- 3627 Apr, [facility] [place] [facility] [address] [id number] [place] [address]- 0303 March, [facility] [place] [facility] [address] [id number] [place] [address]- 3741 March, [facility] [place] [facility] [address] [id number] [place] [address]- 5488 Jan, [facility] [place] [facility] [address] [id number] [place] [address]- 7387 Jan, [facility] [place] [facility] [address] [id number] [place] [address]- 2029 Jan, [facility] [place] [facility] [address] [id number] [place] [address]- 2358 Jan, [facility] [place] [facility] [address] [id number] [address]- 7923 Dec, [facility] [place] [facility] [address] [id number] [place] [address]- 6966 Dec, [facility] [place] [facility] [address] [id number] [place] [address]- 7633 Dec, [facility] [place] [facility] [address] [id number] [place] [address]- 7797 Dec, [facility] [place] [facility] [address] [id number] [place] [address]- 4231 15 Dec, 2013 [facility] [place] [facility] [address] [id number] [place] [address]- 4891 14 Dec, 2013 [facility] [place] [facility] [address] [id number] [place] [address]- 7075 13 Dec, 2013 [facility] [place] [facility] [address] [id number] [place] [address]- 5961 13 Dec, 2013 [facility] [place] [facility] [address] [id number] [place] [address]- 5597 12 Dec, 2013 [facility] [place] [facility] [address] [id number] [place] [address]- 7004 12 Dec, 2013 [facility] [place] [facility] [address] [id number] [place] [address]- 5920 05 Dec, 2013 [facility] [place] [facility] [address] [id number] [place] [address]- 6904 05 Dec, 2013 [facility] [place] [facility] [address] [id number] [place] [address]- 1076 Dec, [facility] [place] [facility] [address] [id number] [place] [address]- 0530 Dec, [facility] [place] [facility] [address] [facility] [id number] [place] [address]- 0441 Dec, [facility] [place] [facility] [address] [id number] [place] [address]- 8497 Dec, [facility] [place] [facility] [address] [id number] [place] [address]- 1555 Dec, [facility] [place] [facility] [address] [id number] [place] [address]- 2847 Dec, [facility] [place] [facility] [address] [id number] [place] [address]- 7219 Nov, [facility] [place] [facility] [address] [id number] [place] [address]- 6002 Nov, [facility] [address] [id number] [place] [address]- 9081 Nov, [facility] [place] [facility] [address] [id number] [place] [address]- 3245 Nov, [facility] [place] [facility] [address] [id number] [place] [address]- 2338 Nov, [facility] [place] [facility] [address] [id number] [place] [address]- 7734 Nov, [facility] [place] [facility] [address] [id number] [place] [address]- 0961 Nov, [facility] [place] [facility] [address] [id number] [place] [address]- 0427 Nov, [facility] [place] [facility] [address] [id number] [place] [address]- 3633 Oct, [facility] [place] [facility] [address] [id number] [place] [address]- 6271 Oct, [facility] [place] [facility] [address] [id number] [place] [address]- 3105 Oct, [facility] [place] [facility] [address] [id number] [place] [address]- 8711 Oct, [facility] [place] [facility] [address] [id number], [place] [address]- 0788 Oct, [facility] [place] [facility] [address] [id number], [place] [address]- 9715 Oct, [facility] [place] [facility] [address] [id number] [place] [address]- 1299 Sep, [facility] [place] [facility] [address] [id number] [place] [address]- 2646 Sep, [facility] [place] [facility] [address] [id number], [place] [address]- 6153 Sep, [facility] [place] [facility] [address] [id number], [place] [address]- 6310 Sep, [facility] [address] [id number] [place] [address]- 5518 Aug, [facility] [place] [facility] [address] [id number] [place] [address]- 1763 Aug, [facility] [place] [facility] [address] [facility] [id number] [place] [address]- 9869 Aug, [facility] [place] [facility] [address] [id number] [place] [address]- 1638 Aug, [facility] [place] [facility] [address] [id number] [place] [address]- 6009 Jul, [facility] [place] [facility] [address] [id number] [place] [address]- 8878 Jul, [facility] [id number] [address]- 4727 Jun, [facility] [place] [facility] [address] [id number] [place] [address]- 5601 Jun, [facility] [place] [facility] [id number] [place] [address] Apr, [facility] [place] [facility] [address] [facility] [id number] [place] [address] Apr, [facility] [place] [facility] [address] [id number], [place] [address] Apr, [facility] [place] [facility] [address] [id number], [place] [address] Apr, [facility] [place] [facility] [address] [id number] [place] [address] March, [facility] [place] [facility] [address] [facility] [id number] [place] [address] March, [facility] [place] [facility] [address] [id number] [place] [address] March, [facility] [place] [facility] [address] [id number] [place] [address] Jan, [facility] [address] [id number] [place] [address] Jan, [facility] [place] [facility] [address] [id number] [place] [address] Dec, [facility] [place] [facility] [address] [id number] [place] [address] Dec, [facility] [place] [facility] [address] [id number] [place] [address] Dec, [facility] [place] [facility] [address] [id number] [place] [address] Dec, [facility] [place] [facility] [address] [id number] [place] [address] Dec, [facility] [place] [facility] [address] [id number] [place] [address] Dec, [facility] [place] [facility] [address] [id number] [place] [address] Nov, [facility] [address] [id number] [place] [address] Nov, [facility] [place] [facility] [address] [id number] [place] [address] Oct, [facility] [place] [facility] [address] [id number] [place] [address] Oct, [facility] [place] [facility] [address] [id number] [place] [address] Oct, [facility] [place] [facility] [address] [id number] [place] [address] Oct, [facility] [place] [facility] [address] [id number] [place] [address] Oct, [facility] [place] [facility] [address] [id number], [place] [address] Oct, [facility] [place] [facility] [address] [id number] [place] [address] Oct, [facility] [place] [facility] [address] [id number] [place] [address] Oct, [facility] [place] [facility] [address] [facility] [id number] [place] [address] Oct, [facility] [place] [facility] [address] [id number] [place] [address] Oct, [facility] [place] [facility] [address] [id number] [place] [address] Sep, [facility] [place] [facility] [address] [id number] [place] [address] Sep, [facility] [place] [facility] [address] [facility] [id number] [place] [address] Sep, [facility] [place] [facility] [address] [id number], [place] [address] Sep, [facility] [place] [facility] [address] [id number], [place] [address] Aug, [facility] [place] [facility] [address] [id number] [place] [address] Aug, [facility] [place] [facility] [address] [id number], [place] [address] Aug, [facility] [place] [facility] [address] [id number], [place] [address] Jul, [facility] [place] [facility] [address] [id number] [place] [address] Jun, [facility] [place] [facility] [address] [facility] [id number], [place] [address] Jun, [facility] [place] [facility] [address] [facility] [id number], [place] [address] May, [facility] [place] [facility] [address] [id number] [place] [address] Apr, [facility] [address] [id number] [place] [address] March, [facility] [place] [facility] [address] [id number] [place] [address] Jan, [facility] [address] [id number] [place] [address] Dec, [facility] [address] [id number] [place] [address] Dec, [facility] [address] [id number] [place] [address] Nov, [facility] [address] [id number] [place] [address] Oct, [facility] [address] [id number] [place] [address] Oct, [facility] [address] [id number] [place] [address] Sep, [facility] [address] [id number] [place] [address] Aug, [facility] [address] [id number] [place] [address] Dec, [facility] [address] [id number] [place] [address] Oct, [facility] [address] [id number] [place] [address] Oct, [facility] [place] [facility] [address] [id number] [place] [address] Oct, [facility] [place] [facility] [address] [id number] [place] [address] Jun, [facility] [place] [facility] [address] [id number] [place] [address] Jun, [facility] [address] [id number] [address] Oct, [facility] [id number], [place] [address] Sep, [facility] [address] [id number], [place] [address] Sep, [facility] [id number], [place] [address] Sep, [facility] [id number], [place] [address] Aug, [facility] [id number], [place] [address] Dec, IMMUNIZATIONS No Known Immunizations SOCIAL HISTORY Never Assessed REASON FOR VISIT Follow-up Depression/Anxiety PLAN OF CARE Activity Details Follow Up 2 Weeks Reason: Follow-up VITAL SIGNS MEDICATIONS Unknown Medications RESULTS No Results PROCEDURES Procedure Date Ordered Result Body Site Psychotherapy, patient &/family, 45 minutes, established patient March 10, 2018 INSTRUCTIONS MEDICATIONS ADMINISTERED No Known Medications [...]
--- OUTSIDE RECORDS SUMMARY | 2019-01-13 21:54 | XMS REPORT ---
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 02527672 Problem Elevated lymphocytes D72.820 Active 44542374 Problem Prediabetes R73.03 Active 096149484 Problem Chronic reflux esophagitis K21.0 Active 047500286 Problem Chronic fatigue R53.82 Active 08174323 Problem BMI 35.0-35.9,adult Z68.35 Active 953765261 Problem Major depressive disorder, recurrent episode, moderate F33.1 Active 438592450 Problem Seasonal allergic rhinitis due to pollen J30.1 Active 74709224 Problem WILMA (generalized anxiety disorder) F41.1 Active 82528918 Problem Severe episode of recurrent major depressive disorder, without psychotic features F33.2 Active 70854359 Problem Carpal tunnel syndrome of right wrist G56.01 Active 47021431 Problem PTSD (post-traumatic stress disorder) F43.10 Active 86938288 ALLERGIES No Information ENCOUNTERS Encounter Location Date Diagnosis [facility] [address], [place] [address] Aug, [facility] [address], [place] [address] Jul, [facility] [id number] [place] [address] 46505- 3056 Jul, [facility] [address], [place] [address] 8[address] Jun, [facility] [id number] [place] [address] 95579- 4538 Jun, Encounter to establish care Z76.89 ; Diarrhea, unspecified type R19.7 ; Carpal tunnel syndrome of right wrist G56.01 ; Tobacco use Z72.0 ; Major depressive disorder, recurrent episode, moderate F33.1 and Seasonal allergic rhinitis due to pollen J30.1 [facility] [address], [place] [address] Jun, Severe episode of recurrent major depressive disorder, without psychotic features F33.2 ; WILMA (generalized anxiety disorder) F41.1 and PTSD (post-traumatic stress disorder) F43.10 [facility] [id number] [place] [address] 23942- 2549 May, Severe episode of recurrent major depressive disorder, without psychotic features F33.2 ; WILMA (generalized anxiety disorder) F41.1 and PTSD (post-traumatic stress disorder) F43.10 [facility] [id number] [place] [address] 32224- 8355 May, Scalp cyst L72.9 [facility] [id number] [place] [address] 48161- 7258 May, Severe episode of recurrent major depressive disorder, without psychotic features F33.2 ; WILMA (generalized anxiety disorder) F41.1 and PTSD (post-traumatic stress disorder) F43.10 [facility] [address] [place] [address] 94995- 4077 Apr, Severe episode of recurrent major depressive disorder, without psychotic features F33.2 ; WILMA (generalized anxiety disorder) F41.1 and PTSD (post-traumatic stress disorder) F43.10 [facility] [address] [place] [address] 32918- 1056 March, Severe episode of recurrent major depressive disorder, without psychotic features F33.2 ; WILMA (generalized anxiety disorder) F41.1 and PTSD (post-traumatic stress disorder) F43.10 [facility] [address], [place] [address] 8[address] March, Severe episode of recurrent major depressive disorder, without psychotic features F33.2 ; WILMA (generalized anxiety disorder) F41.1 and PTSD (post-traumatic stress disorder) F43.10 [facility] [address], [place] [address] March, [facility] [address], [place] [address] 4[address] Jan, Severe episode of recurrent major depressive disorder, without psychotic features F33.2 ; WILMA (generalized anxiety disorder) F41.1 and PTSD (post-traumatic stress disorder) F43.10 [facility] [address], [place] [address]- 4[address] Jan, Carpal tunnel syndrome of right wrist G56.01 [facility] [id number] [place] [address] 02487- 3303 Jan, Severe episode of recurrent major depressive disorder, without psychotic features F33.2 ; WILMA (generalized anxiety disorder) F41.1 and PTSD (post-traumatic stress disorder) F43.10 [facility] [address], [place] [address]- 6900 Dec, Severe episode of recurrent major depressive disorder, without psychotic features F33.2 ; WILMA (generalized anxiety disorder) F41.1 and PTSD (post-traumatic stress disorder) F43.10 [facility] [address], [place] [address]- 0160 Dec, Severe episode of recurrent major depressive disorder, without psychotic features F33.2 ; WILMA (generalized anxiety disorder) F41.1 and PTSD (post-traumatic stress disorder) F43.10 [facility] [address], [place] [address]- 1430 Dec, Severe episode of recurrent major depressive disorder, without psychotic features F33.2 ; WILMA (generalized anxiety disorder) F41.1 and PTSD (post-traumatic stress disorder) F43.10 [facility] [address], [place] [address]- 3657 Dec, Severe episode of recurrent major depressive disorder, without psychotic features F33.2 [facility] [id number] [place] [address] 33969- 2053 Dec, Severe episode of recurrent major depressive disorder, without psychotic features F33.2 ; WILMA (generalized anxiety disorder) F41.1 and PTSD (post-traumatic stress disorder) F43.10 [facility] [id number] [place] [address] 06636- 8168 Dec, Severe episode of recurrent major depressive disorder, without psychotic features F33.2 ; WILMA (generalized anxiety disorder) F41.1 and PTSD (post-traumatic stress disorder) F43.10 [facility] [id number] [place] [address] 998029- 1588 Dec, Severe episode of recurrent major depressive disorder, without psychotic features F33.2 and Anxiety state, unspecified F41.1 [facility] [id number] [place] [address] 33553- 7316 Dec, Severe episode of recurrent major depressive disorder, without psychotic features F33.2 and Anxiety state, unspecified F41.1 [facility] [id number] [place] [address] 10616- 7381 Nov, Depression, major, recurrent, moderate F33.1 and Anxiety state, unspecified F41.1 [facility] [id number] [place] [address] 08723- 2945 Nov, Depression, major, recurrent, moderate F33.1 and Anxiety state, unspecified F41.1 [facility] [id number] [place] [address] 40485- 6871 Oct, Depression, major, recurrent, moderate F33.1 and Anxiety state, unspecified F41.1 [facility] [id number] [place] [address] [address] Oct, Depression, major, recurrent, moderate F33.1 and Post- cholecystectomy syndrome K91.5 [place] [address] [address]- 4006 Oct, Depression, major, recurrent, moderate F33.1 and Anxiety state, unspecified F41.1 [facility] [id number] [place] [address]- 6217 Sep, Depression, major, recurrent, moderate F33.1 and Anxiety state, unspecified F41.1 [facility] [id number] [place] [address] Sep, Depression, major, recurrent, moderate F33.1 and Anxiety state, unspecified F41.1 [facility] [id number] [place] Sep, Depression, major, recurrent, moderate F33.1 and Anxiety state, unspecified F41.1 [facility] [id number] [place] [address] Sep, Diarrhea, unspecified type R19.7 [facility] [id number] [place] 3956 Aug, Depression, major, recurrent, moderate F33.1 and Anxiety state, unspecified F41.1 [facility] [id number] [place] [address] Aug, Depression, major, recurrent, moderate F33.1 and Anxiety state, unspecified F41.1 [facility] [id number] [place] 6080 Jul, Depression, major, recurrent, moderate F33.1 and Anxiety state, unspecified F41.1 [facility] [id number] [place] 3131 Jun, Depression, major, recurrent, moderate F33.1 and Anxiety state, unspecified F41.1 [facility] [facility] [address] [place] [address] [address] Jun, Generalized abdominal pain R10.84 ; Diarrhea, unspecified type R19.7 ; Acute cystitis without hematuria N30.00 ; Abdominal bloating R14.0 and Elevated blood pressure reading R03.0 [facility] [id number] [place] [address] 00837- 1933 Jun, Depression, major, recurrent, moderate F33.1 and Anxiety state, unspecified F41.1 [facility] [id number] [place] [address] 08146- 3926 May, Depression, major, recurrent, moderate F33.1 and Anxiety state, unspecified F41.1 [place] [facility] [address] 76222- 2073 May, Elevated lymphocytes D72.820 [place] [address] 45199- 0235 May, Elevated lymphocytes D72.820 [place] [facility] [address] 67952- 6875 May, BMI 35.0-35.9,adult Z68.35 ; Other fatigue R53.83 ; Pelvic pain R10.2 ; Tobacco use Z72.0 and Chronic reflux esophagitis K21.0 [facility] [id number] [place] [address] 59475- 5039 Apr, [facility] [id number] [place] [address] 18356- 8887 Apr, Depression, major, recurrent, moderate F33.1 and Anxiety state, unspecified F41.1 [facility] [id number] [place] [address] 41355- 4938 Apr, Depression, major, recurrent, moderate F33.1 and Anxiety state, unspecified F41.1 [facility] [id number] [place] [address] 46707- 2444 Apr, [facility] [id number] [place] [address] 48123- 0290 March, Major depressive disorder, recurrent episode, mild F33.0 and Anxiety state, unspecified F41.1 [facility] [address], [place] [address] March, Sore throat J02.9 and Submandibular lymphadenopathy R59.0 [facility] [address] [place] [address] 38765- 7919 Dec, Major depressive disorder, recurrent episode, mild F33.0 and Anxiety state, unspecified F41.1 [facility] [id number] [place] [address] 41668- 9463 Dec, Major depressive disorder, recurrent episode, mild F33.0 and Anxiety state, unspecified F41.1 [facility] [id number] [place] [address] 47090- 7820 Dec, Major depressive disorder, recurrent episode, mild F33.0 and Anxiety state, unspecified F41.1 [facility] [id number] [place] [address] 13443- 3867 Sep, Major depressive disorder, recurrent episode, mild F33.0 and Anxiety state, unspecified F41.1 [facility] [id number] [place] [address] 29122- 2004 Sep, Major depressive disorder, recurrent episode, moderate F33.1 and Anxiety state, unspecified F41.1 [facility] [address], [place] [address]- 6351 Aug, Major depressive disorder, recurrent episode, moderate F33.1 and Anxiety state, unspecified F41.1 [facility] [address] [place] [address] 10269- 6554 Aug, Major depressive disorder, recurrent episode, moderate F33.1 and Anxiety state, unspecified F41.1 [facility] [address] [place] [address] 87724- 9969 Jul, Major depressive disorder, recurrent episode, moderate F33.1 and Anxiety state, unspecified F41.1 [facility] [id number] [place] [address] 16597- 7149 Jul, Major depressive disorder, recurrent episode, moderate F33.1 and Anxiety state, unspecified F41.1 [facility] [id number] [place] [address] 09641- 4173 Jun, Major depressive disorder, recurrent episode, moderate F33.1 and Anxiety state, unspecified F41.1 [facility] [id number] [place] [address] 54994- 8860 Jun, Major depressive disorder, recurrent episode, moderate F33.1 and Anxiety state, unspecified F41.1 [facility] [facility] [address] 19076- 5101 May, Major depressive disorder, recurrent episode, moderate F33.1 and Anxiety state, unspecified F41.1 [facility] [id number] [place] [address] 34189- 0215 Apr, Major depressive disorder, recurrent episode, moderate F33.1 and Anxiety state, unspecified F41.1 [facility] [id number] [place] [address] 69488- 8265 Apr, Major depressive disorder, recurrent episode, moderate F33.1 and Anxiety state, unspecified F41.1 [facility] [id number] [place] [address] 88456- 0939 Dec, Major depressive disorder, recurrent episode, moderate F33.1 and Anxiety state, unspecified F41.1 [facility] [id number] [place] [address] 63189- 3361 Dec, Major depressive disorder, recurrent episode, moderate F33.1 and Anxiety state, unspecified F41.1 [facility] [place] [id number] [place] [address] 62226 -0691 Dec, Pharyngitis J02.9 and Acute frontal sinusitis J01.10 [place] [id number] [place] [address] 58536- 1294 Nov, Bilateral occipital neuralgia M54.81 and Neck muscle spasm M62.838 [facility] [address], [place] [address]- 1132 Nov, Major depressive disorder, recurrent episode, moderate F33.1 and Anxiety state, unspecified F41.1 [facility] [id number], [place] [address]- 1988 Sep, Major depressive disorder, recurrent episode, moderate F33.1 and Anxiety state, unspecified F41.1 [facility] [id number] [place] [address] 81774- 4178 Aug, Major depressive disorder, recurrent episode, moderate F33.1 and Anxiety state, unspecified F41.1 [facility] [id number] [place] [address] 18492- 1049 Jul, Abdominal pain 789.00 ; Hematochezia 578.1 and Weight loss 783.21 [facility] [id number] [place] [address] 36849- 6799 May, [facility] [id number] [place] [address] 57131- 9959 March, [facility] [id number] [place] [address] 50652- 9383 March, [facility] [address], [place] [address]- 0373 Jan, [facility] [id number] [place] [address] 28716- 1615 Jan, [facility] [address], [place] [address]- 6068 Dec, [facility] [id number] [place] [address] 21502- 8137 Dec, [facility] [address] [address] 7634 Dec, [facility] [place] [facility] [address] [id number] [place] [address]- 2932 06 Dec, 2014 [facility] [place] [facility] [address] [id number] [place] [address]- 3395 Dec, 2014 [facility] [place] [facility] [address] [id number] [place] [address]- 2546 05 Dec, 2014 [facility] [place] [facility] [address] [id number] [place] [address] 2541 Jul, 2013 [facility] [place] [facility] [address] [id number] [place] [address] 2541 25 Jul, 2013 [facility] [place] [facility] [address] [id number] [place] [address] 2546 11 Jul, 2013 [facility] [place] [facility] [address] [id number] [place] [address]- 4902 11 Jul, 2013 [facility] [place] [facility] [address] [id number] [place] [address]- 2540 10 Jul, 2013 [facility] [place] [facility] [address] [id number] [place] [address] 2548 10 Jul, 2013 [facility] [place] [facility] [address] [id number] [place] [address] 2545 Jul, 2013 [facility] [place] [facility] [address] [id number] [place] [address] 2543 09 Sep, 2013 [facility] [place] [facility] [address] [id number] [place] [address] 2547 09 Sep, 2013 [facility] [place] [facility] [address] [id number] [place] [address] 2547 09 Sep, 2013 [facility] [place] [facility] [address] [id number] [place] [address] 2546 Sep, 2013 [facility] [place] [facility] [address] [id number] [place] [address]- 2548 04 Jul, 2013 [facility] [place] [facility] [address] [id number] [place] [address]- 4068 May, [facility] [place] [facility] [address] [id number] [place] [address]- 4409 May, [facility] [place] [facility] [address] [id number] [place] [address]- 4471 Apr, [facility] [place] [facility] [address] [id number] [place] [address]- 6762 Apr, [facility] [place] [facility] [address] [id number] [place] [address]- 2641 Apr, [facility] [place] [facility] [address] [id number] [place] [address]- 9709 Apr, [facility] [place] [facility] [address] [id number] [place] [address]- 1357 March, [facility] [place] [facility] [address] [id number] [place] [address]- 0432 March, [facility] [place] [facility] [address] [id number] [place] [address]- 7195 Jan, [facility] [place] [facility] [address] [id number] [place] [address]- 0881 Jan, [facility] [place] [facility] [address] [id number] [place] [address]- 0566 Jan, [facility] [place] [facility] [address] [id number] [place] [address]- 8418 Jan, [facility] [place] [facility] [address] [id number], [place] [address]- 0786 Dec, [facility] [place] [facility] [address] [id number] [place] [address]- 7249 Dec, [facility] [place] [facility] [address] [id number] [place] [address]- 2567 Dec, [facility] [place] [facility] [address] [id number] [place] [address]- 6283 Dec, [facility] [place] [facility] [address] [id number] [place] [address]- 0280 15 Dec, 2013 [facility] [place] [facility] [address] [id number] [place] [address]- 6522 14 Dec, 2013 [facility] [place] [facility] [address] [id number] [place] [address]- 1547 13 Dec, 2013 [facility] [place] [facility] [address] [id number] [place] [address]- 1430 13 Dec, 2013 [facility] [place] [facility] [address] [id number] [place] [address]- 6945 12 Dec, 2013 [facility] [place] [facility] [address] [id number] [place] [address]- 7580 12 Dec, 2013 [facility] [place] [facility] [address] [id number] [place] [address]- 6874 05 Dec, 2013 [facility] [place] [facility] [address] [id number] [place] [address]- 0438 05 Dec, 2013 [facility] [place] [facility] [address] [id number] [place] [address]- 8513 Dec, [facility] [place] [facility] [address] [id number] [place] [address]- 2146 Dec, [facility] [place] [facility] [address] [facility] [id number] [place] [address]- 7112 Dec, [facility] [place] [facility] [address] [id number] [place] [address]- 4001 Dec, [facility] [place] [facility] [address] [id number] [place] [address]- 1310 Dec, [facility] [place] [facility] [address] [id number] [place] [address]- 3845 Dec, [facility] [place] [facility] [address] [id number] [place] [address]- 6757 Nov, [facility] [place] [facility] [address] [id number] [place] [address]- 2755 Nov, [facility] [address] [id number] [place] [address]- 0964 Nov, [facility] [place] [facility] [address] [id number] [place] [address]- 4129 Nov, [facility] [place] [facility] [address] [id number] [place] [address]- 1073 Nov, [facility] [place] [facility] [address] [id number] [place] [address]- 9978 Nov, [facility] [place] [facility] [address] [id number] [place] [address]- 8655 Nov, [facility] [place] [facility] [address] [id number] [place] [address]- 8865 Nov, [facility] [place] [facility] [address] [id number] [place] [address]- 0538 Oct, [facility] [place] [facility] [address] [id number] [place] [address]- 6938 Oct, [facility] [place] [facility] [address] [id number] [place] [address]- 6036 Oct, [facility] [place] [facility] [address] [id number] [place] [address]- 9435 Oct, [facility] [place] [facility] [address] [id number], [place] [address]- 7282 Oct, [facility] [place] [facility] [address] [id number], [place] [address]- 2367 Oct, [facility] [place] [facility] [address] [id number] [place] [address]- 3022 Sep, [facility] [place] [facility] [address] [id number] [place] [address]- 9626 Sep, [facility] [place] [facility] [address] [id number], [place] [address]- 2571 Sep, [facility] [place] [facility] [address] [id number], [place] [address]- 0443 Sep, [facility] [address] [id number] [place] [address]- 2007 Aug, [facility] [place] [facility] [address] [id number] [place] [address]- 4901 Aug, [facility] [place] [facility] [address] [facility] [id number] [place] [address]- 3140 Aug, [facility] [place] [facility] [address] [id number] [place] [address]- 6357 Aug, [facility] [place] [facility] [address] [id number] [place] [address]- 8769 Jul, [facility] [place] [facility] [address] [id number] [place] [address]- 5309 Jul, [facility] [id number] [address]- 5203 Jun, [facility] [place] [facility] [address] [id number] [place] [address]- 6642 Jun, [facility] [place] [facility] [id number] [address]- 0247 Apr, [facility] [place] [facility] [address] [facility] [id number] [place] [address] Apr, [facility] [place] [facility] [address] [id number], [place] [address] Apr, [facility] [place] [facility] [address] [id number], [place] [address] Apr, [facility] [place] [facility] [address] [id number] [place] [address] March, [facility] [place] [facility] [address] [facility] [id number] [place] [address] March, [facility] [place] [facility] [address] [id number] [address] March, [facility] [place] [facility] [address] [id number] [place] [address] Jan, [facility] [address] [id number] [place] [address] Jan, [facility] [place] [facility] [address] [id number] [place] [address] Dec, [facility] [place] [facility] [address] [id number] [place] [address] Dec, [facility] [place] [facility] [address] [id number] [place] [address] Dec, [facility] [place] [facility] [address] [id number] [place] [address] Dec, [facility] [place] [facility] [address] [id number] [place] [address] Dec, [facility] [place] [facility] [address] [id number] [place] [address] Dec, [facility] [place] [facility] [address] [id number] [place] [address] Nov, [facility] [address] [id number] [place] [address] Nov, [facility] [place] [facility] [address] [id number] [place] [address] Oct, [facility] [place] [facility] [address] [id number] [place] [address] Oct, [facility] [place] [facility] [address] [id number] [place] [address] Oct, [facility] [place] [facility] [address] [id number] [place] [address] Oct, [facility] [place] [facility] [address] [id number] [place] [address] Oct, [facility] [place] [facility] [address] [id number], [place] [address] Oct, [facility] [place] [facility] [address] [id number] [place] [address] Oct, [facility] [place] [facility] [address] [id number] [place] [address] Oct, [facility] [place] [facility] [address] [facility] [id number] [place] [address] Oct, [facility] [place] [facility] [address] [id number] [place] [address] Oct, [facility] [place] [facility] [address] [id number] [place] [address] Sep, [facility] [place] [facility] [address] [id number] [place] [address] Sep, [facility] [place] [facility] [address] [facility] [id number] [place] [address] Sep, [facility] [place] [facility] [address] [id number], [place] [address] Sep, [facility] [place] [facility] [address] [id number], [place] [address] Aug, [facility] [place] [facility] [address] [id number] [place] [address] Aug, [facility] [place] [facility] [address] [id number], [place] [address] Aug, [facility] [place] [facility] [address] [id number], [place] [address] Jul, [facility] [place] [facility] [address] [id number] [place] [address] Jun, [facility] [place] [facility] [address] [facility] [id number], [place] [address] Jun, [facility] [place] [facility] [address] [facility] [id number], [place] [address] May, [facility] [place] [facility] [address] [id number] [place] [address] Apr, [facility] [address] [id number] [place] [address] March, [facility] [place] [facility] [address] [id number] [place] [address] Jan, [facility] [address] [id number] [place] [address] Dec, [facility] [address] [id number] [place] [address] Dec, [facility] [address] [id number] [place] [address] Nov, [facility] [address] [id number] [place] [address] Oct, [facility] [address] [id number] [place] [address] Oct, [facility] [address] [id number] [place] [address] Sep, [facility] [address] [id number] [place] [address] Aug, [facility] [address] [id number] [place] [address] Dec, [facility] [address] [id number] [place] [address] Oct, [facility] [address] [id number] [place] [address] Oct, [facility] [place] [facility] [address] [id number] [place] [address] Oct, [facility] [place] [facility] [address] [id number] [place] [address] Jun, [facility] [place] [facility] [address] [id number] [place] [address] Jun, [facility] [address] [id number], [place] [address] Oct, [facility] [id number], [place] [address] Sep, [facility] [id number], [place] [address] Sep, [facility] [id number] [place] [address] Sep, [facility] [id number], [place] [address] Aug, [facility] [id number], [place] [address] Dec, IMMUNIZATIONS No Known Immunizations SOCIAL HISTORY Never Assessed REASON FOR VISIT Requests return call PLAN OF CARE VITAL SIGNS [...]
--- OUTSIDE RECORDS SUMMARY | 2019-01-13 21:54 | XMS REPORT ---
Author Author PADMINI LUJAN [facility] Address [address] [place] [address] Care Team Providers Care Spray Foam Installer Name Role Phone PADMINI LUJAN Unavailable PROBLEMS Type Condition ICD9-CM Code ECY89-[id number] Code Onset Dates Condition Status SNOMED Code Problem BMI 35.0-35.9,adult Z68.35 Active 472066542 Problem Tobacco use Z72.0 Active 024003414 Problem Chronic fatigue R53.82 Active 17983160 Problem Prediabetes R73.03 Active 662261817 Problem Chronic reflux esophagitis K21.0 Active 102284957 Problem Carpal tunnel syndrome of right wrist G56.01 Active 38028239 Problem PTSD (post-traumatic stress disorder) F43.10 Active 54192787 Problem 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 96386699 Problem Elevated lymphocytes D72.820 Active 93392160 Problem WILMA (generalized anxiety disorder) F41.1 Active 89896228 Problem Severe episode of recurrent major depressive disorder, without psychotic features F33.2 Active 14037311 ALLERGIES No Information ENCOUNTERS Encounter Location Date Diagnosis [facility] [id number] [place] [address] 21076- 4434 Jul, [facility] [id number] [place] [address] 76068- 3706 Jul, [facility] [id number] [place] [address] 08400- 9088 Jun, [facility] [address] 18122- 7471 Jun, [facility] [id number] [place] [address] 54761- 7864 Jun, [facility] [id number] [place] [address] 50978- 1074 May, Severe episode of recurrent major depressive disorder, without psychotic features F33.2 ; WILMA (generalized anxiety disorder) F41.1 and PTSD (post-traumatic stress disorder) F43.10 [place] [id number] [place] [address] 85508- 5617 May, Scalp cyst L72.9 [place] [id number] [place] [address] 47964- 0731 May, Severe episode of recurrent major depressive disorder, without psychotic features F33.2 ; WILMA (generalized anxiety disorder) F41.1 and PTSD (post-traumatic stress disorder) F43.10 [place] [id number] [place] [address] 54536- 0158 Apr, Severe episode of recurrent major depressive disorder, without psychotic features F33.2 ; WILMA (generalized anxiety disorder) F41.1 and PTSD (post-traumatic stress disorder) F43.10 [place] [id number] [place] [address] 48535- 5990 March, Severe episode of recurrent major depressive disorder, without psychotic features F33.2 ; WILMA (generalized anxiety disorder) F41.1 and PTSD (post-traumatic stress disorder) F43.10 [place] [address] [place] [address] 27830- 8715 March, Severe episode of recurrent major depressive disorder, without psychotic features F33.2 ; WILMA (generalized anxiety disorder) F41.1 and PTSD (post-traumatic stress disorder) F43.10 [place] [address] [address]- 3165 March, [place] [id number] [place] [address] 20793- 8527 Jan, Severe episode of recurrent major depressive disorder, without 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 ; WILMA (generalized anxiety disorder) F41.1 and PTSD (post-traumatic stress disorder) F43.10 [place] [address] [place] [address] 93162- 7235 Jan, Carpal tunnel syndrome of right wrist G56.01 [place] [id number] [place] [address] 07217- 5066 Jan, Severe episode of recurrent major depressive disorder, without psychotic features F33.2 ; WILMA (generalized anxiety disorder) F41.1 and PTSD (post-traumatic stress disorder) F43.10 [place] [id number] [place] [address] 79084- 6603 Dec, Severe episode of recurrent major depressive disorder, without 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 ; WILMA (generalized anxiety disorder) F41.1 and PTSD (post-traumatic stress disorder) F43.10 [place] [address] [place] 063882- 6540 Dec, Severe episode of recurrent major depressive disorder, without 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 ; WILMA (generalized anxiety disorder) F41.1 and PTSD (post-traumatic stress disorder) F43.10 [place] [id number] [place] [address] 15545- 9881 Dec, Severe episode of recurrent major depressive disorder, without psychotic features F33.2 ; WILMA (generalized anxiety disorder) F41.1 and PTSD (post-traumatic stress disorder) F43.10 [place] [id number] [place] [address] 83629- 6980 Dec, Severe episode of recurrent major depressive disorder, without psychotic features F33.2 [place] [id number] [place] [address] 05177- 3861 Dec, Severe episode of recurrent major depressive disorder, without psychotic features F33.2 ; WILMA (generalized anxiety disorder) F41.1 and PTSD (post-traumatic stress disorder) F43.10 [place] [id number] [place] [address] 94102- 2261 Dec, Severe episode of recurrent major depressive disorder, without 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 ; WILMA (generalized anxiety disorder) F41.1 and PTSD (post-traumatic stress disorder) F43.10 [place] [address] [place] [address]- 6306 20 Dec, 2017 Severe episode of recurrent major depressive disorder, without psychotic features F33.2 and Anxiety state, unspecified F41.1 [place] [id number] [place] [address] 1149 14 Dec, 2017 Severe episode of recurrent major depressive disorder, without psychotic features F33.2 and Anxiety state, unspecified F41.1 [place] [id number] [place] [address] 94595- 7191 Nov, Depression, major, recurrent, moderate F33.1 and Anxiety state, unspecified F41.1 [place] [id number] [place] [address] 2177 Nov, Depression, major, recurrent, moderate F33.1 and Anxiety state, unspecified F41.1 [place] [id number] [place] [address] 44429- 5704 Oct, Depression, major, recurrent, moderate F33.1 and Anxiety state, unspecified F41.1 [place] [id number] [place] [address] 74893- 5283 Oct, Depression, major, recurrent, moderate F33.1 and Post- cholecystectomy syndrome K91.5 [place] [id number] [place] [address] 70901- 5660 Oct, Depression, major, recurrent, moderate F33.1 and Anxiety state, unspecified F41.1 [place] [address] [place] [address] 57346- 2872 Sep, Depression, major, recurrent, moderate F33.1 and Anxiety state, unspecified F41.1 [place] [id number] [place] [address] 33751- 9110 Sep, Depression, major, recurrent, moderate F33.1 and Anxiety state, unspecified F41.1 [place] [id number] [place] [address] 90459- 9951 Sep, Depression, major, recurrent, moderate F33.1 and Anxiety state, unspecified F41.1 [place] [address] 47581- 7155 Sep, Diarrhea, unspecified type R19.[address] 14532- 5060 Aug, Depression, major, recurrent, moderate F33.1 and Anxiety state, unspecified F41.[address] 41695- 3905 Aug, Depression, major, recurrent, moderate F33.1 and Anxiety state, unspecified F41.1 [place] [address]- 2044 Jul, Depression, major, recurrent, moderate F33.1 and Anxiety state, unspecified F41.[address] 71756- 6066 Jun, Depression, major, recurrent, moderate F33.1 and Anxiety state, unspecified F41.[address] 32200- 7512 Jun, Generalized abdominal pain R10.84 ; Diarrhea, unspecified type R19.7 ; Acute cystitis without hematuria N30.00 ; Abdominal bloating R14.0 and Elevated blood pressure reading R03.0 [place] [id number] [place] [address] 28728- 0294 Jun, Depression, major, recurrent, moderate F33.1 and Anxiety state, unspecified F41.1 [place] [address]- 3266 May, Depression, major, recurrent, moderate F33.1 and Anxiety state, unspecified F41.1 [place] [id number] [place] [address] 65431- 3950 May, Elevated lymphocytes D72.820 [place] [id number] [place] [address] 17484- 9576 May, Elevated lymphocytes D72.820 [place] [id number] [place] [address] 92864- 0726 May, BMI 35.0-35.9,adult Z68.35 ; Other fatigue R53.83 ; Pelvic pain R10.2 ; Tobacco use Z72.0 and Chronic reflux esophagitis K21.0 [place] [id number] [place] [address] 61246- 6881 Apr, [place] [id number] [place] [address] 51525- 8772 Apr, Depression, major, recurrent, moderate F33.1 and Anxiety state, unspecified F41.1 [place] [id number] [place] [address] 91177- 7054 Apr, Depression, major, recurrent, moderate F33.1 and Anxiety state, unspecified F41.1 [place] [id number] [place] [address] 32304- 8502 Apr, [place] [id number] [place] [address] 79209- 2333 March, Major depressive disorder, recurrent episode, mild F33.0 and Anxiety state, unspecified F41.1 [facility] [id number] [place] [address] 09237 -8734 March, Sore throat J02.9 and Submandibular lymphadenopathy R59.0 [place] [id number] [place] [address] 36403- 3203 Dec, Major depressive disorder, recurrent episode, mild F33.0 and Anxiety state, unspecified F41.1 [place] [address] [place] [address] 76532- 8776 Dec, Major depressive disorder, recurrent episode, mild F33.0 and Anxiety state, unspecified F41.1 [place] [address] [address]- 6223 Dec, Major depressive disorder, recurrent episode, mild F33.0 and Anxiety state, unspecified F41.1 [place] [address] [address]- 2902 Sep, Major depressive disorder, recurrent episode, mild F33.0 and Anxiety state, unspecified F41.1 [place] [id number] [place] [address] 76821- 3670 Sep, Major depressive disorder, recurrent episode, moderate F33.1 and Anxiety state, unspecified F41.1 [place] [id number] [place] [address] 16516- 4493 Aug, Major depressive disorder, recurrent episode, moderate F33.1 and Anxiety state, unspecified F41.1 [place] [id number] [place] [address] 23627- 2473 Aug, Major depressive disorder, recurrent episode, moderate F33.1 and Anxiety state, unspecified F41.1 [place] [address] [place] [address] 20107- 6385 Jul, Major depressive disorder, recurrent episode, moderate F33.1 and Anxiety state, unspecified F41.1 [place] [address] [address]- 0516 Jul, Major depressive disorder, recurrent episode, moderate F33.1 and Anxiety state, unspecified F41.1 [place] [address] [address]- 7116 Jun, Major depressive disorder, recurrent episode, moderate F33.1 and Anxiety state, unspecified F41.1 [place] [address] [address]- 3147 Jun, Major depressive disorder, recurrent episode, moderate F33.1 and Anxiety state, unspecified F41.1 [place] [address] [place] [address] 04135- 2672 May, Major depressive disorder, recurrent episode, moderate F33.1 and Anxiety state, unspecified F41.1 [facility] [id number] [place] [address] 86331- 1533 Apr, Major depressive disorder, recurrent episode, moderate F33.1 and Anxiety state, unspecified F41.1 [facility] [id number] [place] [address] 08611- 4519 Apr, Major depressive disorder, recurrent episode, moderate F33.1 and Anxiety state, unspecified F41.1 [place] [id number] [place] [address] 55476- 6104 Dec, Major depressive disorder, recurrent episode, moderate F33.1 and Anxiety state, unspecified F41.1 [place] [id number] [place] [address] 61919- 1411 Dec, Major depressive disorder, recurrent episode, moderate F33.1 and Anxiety state, unspecified F41.1 [facility] [id number] [place] [address] 42155 -7015 Dec, Pharyngitis J02.9 and Acute frontal sinusitis J01.10 [place] [address] [place] [address] 28890- 0665 Nov, Bilateral occipital neuralgia M54.81 and Neck muscle spasm M62.838 [place] [id number] [place] [address] 14808- 6646 Nov, Major depressive disorder, recurrent episode, moderate F33.1 and Anxiety state, unspecified F41.1 [place] [address] [place] [address] 65224- 1904 Sep, Major depressive disorder, recurrent episode, moderate F33.1 and Anxiety state, unspecified F41.1 [facility] [address] [place] [address] 28203- 9889 Aug, Major depressive disorder, recurrent episode, moderate F33.1 and Anxiety state, unspecified F41.1 [facility] [address] [address]- 9342 Jul, Abdominal pain 789.00 ; Hematochezia 578.1 and Weight loss 783.21 [facility] [address] [address]- 8184 May, [facility] [id number] [place] [address] 08002- 6232 March, [facility] [address] [place] [address] 80459- 2445 March, [facility] [id number] [place] [address] 59039- 0149 Jan, [facility] [id number] [place] [address] 19481- 6497 Jan, [facility] [id number] [place] [address] 09088- 0758 Dec, [facility] [address] [address]- 9791 Dec, [facility] [address] [place] [address] 18695- 6670 Dec, [facility] [address] [address]- 2608 Dec, [facility] [address] [address]- 9023 Dec, [facility] [address] [address]- 1732 Dec, [facility] [address] [address]- 4781 Jul, [facility] [address] [address]- 2719 Jul, [facility] [id number] [place] [address]- 2664 11 Jul, 2013 [facility] [place] [facility] [address] [id number] [place] [address] 2544 11 Jul, 2013 [facility] [place] [facility] [address] [id number] [place] [address]- 2546 Jul, 2013 [facility] [place] [facility] [address] [id number] [place] [address]- 2161 10 Jul, 2013 [facility] [place] [facility] [address] [id number] [place] [address]- 0149 Jul, 2013 [facility] [place] [facility] [address] [id number] [place] [address]- 0041 Jul, 2013 [facility] [place] [facility] [address] [id number] [place] [address]- 9666 Jul, 2013 [facility] [place] [facility] [address] [id number] [place] [address]- 5776 Jul, 2013 [facility] [place] [facility] [address] [id number] [place] [address]- 2434 Jul, 2013 [facility] [place] [facility] [address] [id number] [place] [address]- 2967 Jul, 2013 [facility] [place] [facility] [address] [id number] [place] [address]- 4860 May, [facility] [place] [facility] [address] [id number] [place] [address]- 2544 May, [facility] [place] [facility] [address] [id number] [place] [address]- 2745 Apr, [facility] [place] [facility] [address] [id number] [place] [address]- 2342 Apr, [facility] [place] [facility] [address] [id number] [place] [address]- 9520 Apr, [facility] [place] [facility] [address] [id number] [place] [address]- 0776 Apr, [facility] [place] [facility] [address] [id number] [place] [address]- 4611 March, [facility] [place] [facility] [address] [id number] [place] [address]- 0935 March, [facility] [place] [facility] [address] [id number] [place] [address]- 4532 Jan, [facility] [place] [facility] [address] [id number] [place] [address]- 1583 Jan, [facility] [place] [facility] [address] [id number] [place] [address]- 2379 Jan, [facility] [place] [facility] [address] [id number] [place] [address]- 1929 Jan, [facility] [place] [facility] [address] [id number] [place] [address]- 6297 Dec, [facility] [place] [facility] [address] [id number] [place] [address]- 5771 Dec, [facility] [place] [facility] [address] [id number] [place] [address]- 7715 18 Dec, 2013 [facility] [place] [facility] [address] [id number] [place] [address]- 8442 18 Dec, 2013 [facility] [place] [facility] [address] [id number] [place] [address]- 4132 15 Dec, 2013 [facility] [place] [facility] [address] [id number] [place] [address]- 3358 14 Dec, 2013 [facility] [place] [facility] [address] [id number] [place] [address]- 1843 13 Dec, 2013 [facility] [place] [facility] [address] [id number] [place] [address]- 6514 13 Dec, 2013 [facility] [place] [facility] [address] [id number] [place]- 5262 12 Dec, 2013 [facility] [place] [facility] [address] [id number] [place] [address]- 1959 Dec, [facility] [place] [facility] [address] [id number] [place] [address]- 6415 Dec, [facility] [place] [facility] [address] [id number] [place] [address]- 8789 Dec, [facility] [place] [facility] [address] [id number] [place] [address]- 8597 Dec, [facility] [place] [facility] [address] [id number] [place] [address]- 2041 Dec, [facility] [place] [facility] [address] [id number] [place] [address]- 9468 Dec, [facility] [place] [facility] [address] [id number] [place] [address]- 1617 Dec, [facility] [place] [facility] [address] [id number] [place] [address]- 6740 Dec, [facility] [place] [facility] [address] [id number] [place] [address]- 7575 Dec, [facility] [place] [facility] [address] [id number] [place] [address]- 4007 Nov, [facility] [place] [facility] [address] [id number] [place] [address]- 4016 Nov, [facility] [place] [facility] [address] [id number] [place] [address]- 3130 Nov, [facility] [place] [facility] [address] [id number] [place] [address]- 9345 Nov, [facility] [place] [facility] [address] [id number] [place] [address]- 9607 Nov, [facility] [place] [facility] [address] [id number] [place] [address]- 1757 Nov, [facility] [place] [facility] [address] [id number] [address]- 3143 Nov, [facility] [place] [facility] [address] [id number] [place] [address]- 0839 Nov, [facility] [place] [facility] [address] [id number] [place] [address]- 5696 Oct, [facility] [place] [facility] [address] [id number] [place] [address]- 7200 Oct, [facility] [place] [facility] [address] [id number] [place] [address]- 8365 Oct, [facility] [place] [facility] [address] [id number] [place] [address]- 3184 Oct, [facility] [place] [facility] [address] [id number] [place] [address]- 6956 Oct, [facility] [place] [facility] [address] [id number] [place] [address]- 3495 Oct, [facility] [place] [facility] [address] [id number] [place] [address]- 6769 Sep, [facility] [place] [facility] [address] [id number] [place] [address]- 7612 Sep, [facility] [place] [facility] [address] [id number] [place] [address]- 1791 Sep, [facility] [place] [facility] [address] [id number] [place] [address]- 0121 Sep, [facility] [place] [facility] [address] [id number] [place] [address]- 8222 Aug, [facility] [place] [facility] [address] [id number] [place] [address]- 1328 Aug, [facility] [place] [facility] [address] [id number] [place] [address]- 4017 Aug, [facility] [place] [facility] [address] [id number] [place] [address]- 1045 Aug, [facility] [place] [facility] [address] [id number] [place] [address]- 9216 Jul, [facility] [address] [id number] [place] [address]- 6193 Jul, [facility] [place] [facility] [address] [id number] [place] [address]- 3305 Jun, [facility] [place] [facility] [address] [id number] [place] [address] 2546 Jun, [facility] [place] [facility] [address] [id number] [place] [address]- 2532 Apr, [facility] [place] [facility] [address] [id number] [place] [address]- 3542 Apr, [facility] [place] [facility] [address] [id number] [place] [address]- 8196 Apr, [facility] [place] [facility] [address] [id number] [place] [address] Apr, [facility] [place] [facility] [address] [id number] [place] [address] March, [facility] [address] [id number] [place] [address] March, [facility] [place] [facility] [address] [id number] [place] [address] March, [facility] [place] [facility] [address] [id number] [place] [address] Jan, [facility] [place] [facility] [address] [id number] [place] [address] Jan, [facility] [place] [facility] [address] [id number] [place] [address] Dec, [facility] [place] [facility] [address] [id number] [place] [address] Dec, [facility] [place] [facility] [address] [id number] [place] [address] Dec, [facility] [place] [facility] [address] [id number] [place] [address] 28 Dec, 2012 [facility] [address] [id number] [place] [address] Dec, [facility] [address] [id number] [place] [address] Dec, [facility] [address] [id number] [place] [address] Nov, [facility] [address] [id number] [place] [address] Nov, [facility] [address] [id number] [place] [address] Oct, [facility] [address] [id number] [place] [address] Oct, [facility] [address] [id number] [place] [address] Oct, [facility] [address] [id number] [place] [address] Oct, [facility] [address] [id number] [place] Oct, [facility] [address] [id number] [place] [address] Oct, [facility] [address] [id number] [place] [address] Oct, [facility] [address] [id number] [place] [address] Oct, [facility] [place] [facility] [address] [id number] [place] [address] Oct, [facility] [address] [id number] [place] [address] Oct, [facility] [address] [id number] [place] [address] Sep, [facility] [place] [facility] [address] [id number] [place] [address]- 2280 Sep, [facility] [place] [facility] [address] [id number] [place] [address] Sep, [facility] [place] [facility] [address] [id number] [place] [address] Sep, [facility] [place] [facility] [address] [id number] [place] [address] Aug, [facility] [place] [facility] [address] [id number] [place] [address] Aug, [facility] [place] [facility] [address] [id number] [place] [address] Aug, [facility] [place] [facility] [address] [facility] [id number] [place] [address] Jul, [facility] [place] [facility] [address] [id number] [place] [address] Jun, [facility] [place] [facility] [address] [id number] [place] [address] Jun, [facility] [place] [facility] [address] [facility] [id number] [place] [address] May, [facility] [place] [facility] [address] [id number] [place] [address] Apr, [facility] [place] [facility] [address] [id number] [place] [address] March, [facility] [place] [facility] [address] [id number] [place] [address] Jan, [facility] [place] [facility] [address] [id number] [place] [address] Dec, [facility] [place] [facility] [address] [facility] [id number] [place] [address] Dec, [facility] [place] [facility] [address] [id number] [place] [address] Nov, [facility] [address] [id number] [place] [address] Oct, [facility] [place] [facility] [address] [id number] [place] [address] Oct, [facility] [place] [facility] [address] [id number] [place] [address] Sep, [facility] [place] [facility] [address] [id number] [place] [address] Aug, [facility] [place] [facility] [address] [id number] [place] [address] Dec, [facility] [place] [facility] [address] [id number] [place] [address] Oct, [facility] [place] [facility] [address] [id number] [place] [address] Oct, [facility] [place] [facility] [address] [id number] [place] [address] Oct, [facility] [place] [facility] [address] [id number] [place] [address] Jun, [facility] [place] [facility] [address] [id number] [place] [address] Jun, [facility] [place] [facility] [address] [id number] [place] [address] Oct, [facility] [place] [facility] [address] [id number] [place] [address] Sep, [facility] [place] [facility] [address] [id number] [place] [address] 2549 Sep, [facility] [place] [facility] [address] [id number] [place] [address] Sep, [facility] [place] [facility] [address] [id number] [place] [address] Aug, [facility] [address] [facility] [id number] [place] [address] Dec, IMMUNIZATIONS No Known Immunizations SOCIAL HISTORY Never Assessed REASON FOR VISIT Follow-up Depression/Anxiety PLAN OF CARE Activity Details Follow Up 4 Weeks Reason: Follow-up VITAL SIGNS MEDICATIONS Unknown Medications RESULTS No Results PROCEDURES Procedure Date Ordered Result Body Site Psychotherapy, patient &/family, 45 minutes, established patient February 10, 2018 INSTRUCTIONS MEDICATIONS ADMINISTERED No Known Medications MEDICAL (GENERAL) HISTORY Type Description Date Medical History GERD Medical History anxiety Medical History depression Surgical History C- section x 2 Surgical History tubal ligation Surgical History hysterectomy 2008 Surgical History cholecystectomy 2013 Surgical History Fibroid removal Hospitalization History inpatient treatment Mirtha SMITH 21 years old Hospitalization History surgeries
--- OUTSIDE RECORDS SUMMARY | 2019-01-13 21:55 | XMS REPORT ---
Author Author GRETCHEN ROTHMAN [facility] Address [address] [place] [address] Care Team Providers Care Dispatcher Refinery Name Role Phone GRETCHEN ROTHMAN Unavailable PROBLEMS Type Condition ICD9-CM Code ZIK00-IF Code Onset Dates Condition Status SNOMED Code Problem BMI 35.0-35.9,adult Z68.35 Active 185819713 Problem Tobacco use Z72.0 Active 153726936 Problem Chronic fatigue R53.82 Active 87249671 Problem Prediabetes R73.03 Active 394935332 Problem Chronic reflux esophagitis K21.0 Active 346478972 Problem Carpal tunnel syndrome of right wrist G56.01 Active 33904948 Problem PTSD (post-traumatic stress disorder) F43.10 Active 83481009 Problem 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 [id number], [place] [address] Jul, [facility] [address] [address] Jul, [facility] [address] [address] Jun, [facility] [address] [address] Jun, [facility] [id number] [place] [address] 70544- 7294 Jun, [place] [facility] [id number] [place] [address] 02279- 0992 May, Severe episode of recurrent major depressive disorder, without psychotic features F33.2 ; WILMA (generalized anxiety disorder) F41.1 and PTSD (post-traumatic stress disorder) F43.10 [place] [id number] [place] [address] 79828- 6445 May, Scalp cyst L72.9 [place] [id number] [place] [address] 74823- 6117 May, Severe episode of recurrent major depressive disorder, without psychotic features F33.2 ; WIMLA (generalized anxiety disorder) F41.1 and PTSD (post-traumatic stress disorder) F43.10 [place] [id number] [place] [address] 30784- 2282 Apr, Severe episode of recurrent major depressive disorder, without psychotic features F33.2 ; WILMA (generalized anxiety disorder) F41.1 and PTSD (post-traumatic stress disorder) F43.10 [place] [id number] [place] [address] 28815- 9460 March, Severe episode of recurrent major depressive disorder, without psychotic features F33.2 ; WILMA (generalized anxiety disorder) F41.1 and PTSD (post-traumatic stress disorder) F43.10 [place] [id number] [place] [address] 88158- 5684 March, Severe episode of recurrent major depressive disorder, without psychotic features F33.2 ; WILMA (generalized anxiety disorder) F41.1 and PTSD (post-traumatic stress disorder) F43.10 [place] [id number] [place] [address] 83627- 4902 March, [place] [address], [place] [address] 99[address] Jan, Severe episode of recurrent major depressive disorder, without psychotic features F33.2 ; WILMA (generalized anxiety disorder) F41.1 and PTSD (post-traumatic stress disorder) F43.10 [place] [id number] [place] [address] 99938- 7249 Jan, Carpal tunnel syndrome of right wrist G56.01 [place] [id number] [place] [address] 18602- 9041 Jan, Severe episode of recurrent major depressive disorder, without psychotic features F33.2 ; WILMA (generalized anxiety disorder) F41.1 and PTSD (post-traumatic stress disorder) F43.10 [place] [id number] [place] [address] 63315- 8332 Dec, Severe episode of recurrent major depressive disorder, without psychotic features F33.2 ; WILMA (generalized anxiety disorder) F41.1 and PTSD (post-traumatic stress disorder) F43.10 [place] [id number] [place] [address] 68881- 4114 Dec, Severe episode of recurrent major depressive disorder, without psychotic features F33.2 ; WILMA (generalized anxiety disorder) F41.1 and PTSD (post-traumatic stress disorder) F43.10 [place] [id number] [place] [address] 63656- 6723 Dec, Severe episode of recurrent major depressive disorder, without psychotic features F33.2 ; WILMA (generalized anxiety disorder) F41.1 and PTSD (post-traumatic stress disorder) F43.10 [place] [id number] [place] [address] 91433- 5717 Dec, Severe episode of recurrent major depressive disorder, without psychotic features F33.2 [place] [id number] [place] [address] 94523- 0233 Dec, Severe episode of recurrent major depressive disorder, without psychotic features F33.2 ; WILMA (generalized anxiety disorder) F41.1 and PTSD (post-traumatic stress disorder) F43.10 [place] [id number] [place] [address] 39210- 0679 Dec, Severe episode of recurrent major depressive disorder, without psychotic features F33.2 ; WILMA (generalized anxiety disorder) F41.1 and PTSD (post-traumatic stress disorder) F43.10 [place] [id number] [place] [address] Dec, Severe episode of recurrent major depressive disorder, without psychotic features F33.2 and Anxiety state, unspecified F41.1 [place] [id number] [place] [address] 43446- 0950 Dec, Severe episode of recurrent major depressive disorder, without psychotic features F33.2 and Anxiety state, unspecified F41.1 [place] [id number] [place] [address]262 Nov, Depression, major, recurrent, moderate F33.1 and Anxiety state, unspecified F41.1 [place] [id number] [place] [address] 26022- 4340 Nov, Depression, major, recurrent, moderate F33.1 and Anxiety state, unspecified F41.1 [place] [id number] [place] [address] 11281- 5093 Oct, Depression, major, recurrent, moderate F33.1 and Anxiety state, unspecified F41.1 [place] [id number] [place] [address] 30887- 9347 Oct, Depression, major, recurrent, moderate F33.1 and Post- cholecystectomy syndrome K91.5 [place] [id number] [place] [address] 77047- 9189 Oct, Depression, major, recurrent, moderate F33.1 and Anxiety state, unspecified F41.1 [place] [id number] [place] [address]846 Sep, Depression, major, recurrent, moderate F33.1 and Anxiety state, unspecified F41.1 [place] [id number] [place] [address] 88310- 3461 Sep, Depression, major, recurrent, moderate F33.1 and Anxiety state, unspecified F41.1 [place] [address] [address]- 1349 Sep, Depression, major, recurrent, moderate F33.1 and Anxiety state, unspecified F41.1 [address] [address] [address]64 Sep, Diarrhea, unspecified type R19.[address] 54177- 0231 Aug, Depression, major, recurrent, moderate F33.1 and Anxiety state, unspecified F41.1 [address]- 5425 Aug, Depression, major, recurrent, moderate F33.1 and Anxiety state, unspecified F41.1 [address]- 2229 Jul, Depression, major, recurrent, moderate F33.1 and Anxiety state, unspecified F41.[address] 45162- 1268 Jun, Depression, major, recurrent, moderate F33.1 and Anxiety state, unspecified F41.1 [id number] [place] [address] 56275- 1551 Jun, Generalized abdominal pain R10.84 ; Diarrhea, unspecified type R19.7 ; Acute cystitis without hematuria N30.00 ; Abdominal bloating R14.0 and Elevated blood pressure reading R03.[address] 34511- 2114 Jun, Depression, major, recurrent, moderate F33.1 and Anxiety state, unspecified F41.1 [address]- 4070 May, Depression, major, recurrent, moderate F33.1 and Anxiety state, unspecified F41.1 [place] [id number] [place] [address] 04152- 0597 May, Elevated lymphocytes D72.820 [place] [id number] [place] [address] 93099- 0170 May, Elevated lymphocytes D72.820 [place] [id number] [place] [address] 08379- 5894 May, BMI 35.0-35.9,adult Z68.35 ; Other fatigue R53.83 ; Pelvic pain R10.2 ; Tobacco use Z72.0 and Chronic reflux esophagitis K21.0 [place] [id number] [place] [address] 63015- 8809 Apr, [place] [id number] [place] [address] 82720- 9696 Apr, Depression, major, recurrent, moderate F33.1 and Anxiety state, unspecified F41.1 [place] [id number] [place] [address] 20867- 5308 Apr, Depression, major, recurrent, moderate F33.1 and Anxiety state, unspecified F41.1 [place] [id number] [place] [address] 41988- 3422 Apr, [place] [id number] [place] [address] 10557- 3962 March, Major depressive disorder, recurrent episode, mild F33.0 and Anxiety state, unspecified F41.[address] [facility] [id number] [place] [address] 97408 -6959 March, Sore throat J02.9 and Submandibular lymphadenopathy R59.0 [place] [id number] [place] [address] 82697- 7184 Dec, Major depressive disorder, recurrent episode, mild F33.0 and Anxiety state, unspecified F41.1 [place] [address], [place] [address]- 9906 Dec, Major depressive disorder, recurrent episode, mild F33.0 and Anxiety state, unspecified F41.1 [place] [id number] [place] [address] 55892- 3436 Dec, Major depressive disorder, recurrent episode, mild F33.0 and Anxiety state, unspecified F41.1 [place] [id number] [place] [address] 29894- 3046 Sep, Major depressive disorder, recurrent episode, mild F33.0 and Anxiety state, unspecified F41.1 [place] [id number] [place] [address] 06854- 2863 Sep, Major depressive disorder, recurrent episode, moderate F33.1 and Anxiety state, unspecified F41.1 [place] [id number] [place] [address] 14667- 8691 Aug, Major depressive disorder, recurrent episode, moderate F33.1 and Anxiety state, unspecified F41.1 [place] [id number] [place] [address] 50592- 7882 Aug, Major depressive disorder, recurrent episode, moderate F33.1 and Anxiety state, unspecified F41.1 [place] [address], [place] [address]- 8011 Jul, Major depressive disorder, recurrent episode, moderate F33.1 and Anxiety state, unspecified F41.1 [place] [id number] [place] [address] 24474- 3059 Jul, Major depressive disorder, recurrent episode, moderate F33.1 and Anxiety state, unspecified F41.1 [address] [id number] [place] [address] 75680- 6352 Jun, Major depressive disorder, recurrent episode, moderate F33.1 and Anxiety state, unspecified F41.1 [address] [id number] [place] [address] 27155- 9017 Jun, Major depressive disorder, recurrent episode, moderate F33.1 and Anxiety state, unspecified F41.1 [place] [id number] [place] [address] 62463- 1902 May, Major depressive disorder, recurrent episode, moderate F33.1 and Anxiety state, unspecified F41.1 [place] [id number] [place] [address] 76994- 6920 Apr, Major depressive disorder, recurrent episode, moderate F33.1 and Anxiety state, unspecified F41.1 [place] [id number] [place] [address] 32245- 1849 Apr, Major depressive disorder, recurrent episode, moderate F33.1 and Anxiety state, unspecified F41.1 [place] [id number] [place] [address] 36208- 5304 Dec, Major depressive disorder, recurrent episode, moderate F33.1 and Anxiety state, unspecified F41.1 [place] [id number] [place] [address] 27312- 0107 Dec, Major depressive disorder, recurrent episode, moderate F33.1 and Anxiety state, unspecified F41.1 [facility] [id number] [place] [address] 85475 -5691 Dec, Pharyngitis J02.9 and Acute frontal sinusitis J01.10 [place] [id number] [place] [address] 76518- 9393 Nov, Bilateral occipital neuralgia M54.81 and Neck muscle spasm M62.838 [place] [id number] [place] [address] 93898- 3910 Nov, Major depressive disorder, recurrent episode, moderate F33.1 and Anxiety state, unspecified F41.1 [place] [id number] [place] [address] 57936- 7018 Sep, Major depressive disorder, recurrent episode, moderate F33.1 and Anxiety state, unspecified F41.1 [facility] [address], [place] [address]- 2788 Aug, Major depressive disorder, recurrent episode, moderate F33.1 and Anxiety state, unspecified F41.1 [facility] [address], [place] [address]- 8263 29 Jul, 2015 Abdominal pain 789.00 ; Hematochezia 578.1 [address] [facility] [id number] [place] [address] 25683- 8872 May, [facility] [id number] [place] [address] 18195- 8469 March, [facility] [id number] [place] [address] 15723- 9227 March, [facility] [id number] [place] [address] 88132- 5678 Jan, [facility] [id number] [place] [address] 88057- 3437 Jan, [facility] [id number] [place] [address] 90833- 5039 Dec, [facility] [address], [place] [address]- [address] Dec, [facility] [id number] [place] [address] 72579- 4531 Dec, [facility] [address], [place] [address]- [address]85 Dec, [facility] [id number] [place] [address] 06086- 4385 Dec, [facility] [address], [place] [address]- 6713 Dec, [facility] [id number] [place] [address] 49220- 2546 Jul, 2013 [facility] [place] [facility] [address] [id number] [place] [address] 2546 Jul, 2013 [facility] [place] [facility] [address] [id number] [place] [address] 2546 Jul, 2013 [facility] [place] [facility] [address] [id number] [place] [address] 2546 Jul, 2013 [facility] [place] [facility] [address] [id number] [place] [address] 2546 Jul, 2013 [facility] [place] [facility] [address] [id number] [place] [address]- 8327 Jul, 2013 [facility] [place] [facility] [address] [id number] [place] [address]- 5742 Jul, 2013 [facility] [place] [facility] [address] [id number] [place] [address]- 8516 Jul, 2013 [facility] [place] [facility] [address] [id number] [place] [address]- 8303 Jul, 2013 [facility] [place] [facility] [address] [id number] [place] [address]- 9776 Jul, 2013 [facility] [place] [facility] [address] [id number] [place] [address]- 5674 Jul, 2013 [facility] [place] [facility] [address] [id number] [place] [address]- 1514 Jul, 2013 [facility] [place] [facility] [address] [id number] [place] [address]- 9733 May, [facility] [place] [facility] [address] [id number] [place] [address]- 9691 May, [facility] [place] [facility] [address] [id number] [place] [address]- 0205 Apr, [facility] [place] [facility] [address] [id number] [place] [address]- 1059 Apr, [facility] [place] [facility] [address] [id number] [place] [address] 2546 Apr, [facility] [address] [id number] [place] [address]- 4645 Apr, [facility] [place] [facility] [address] [id number] [place] [address]- 9746 March, [facility] [address] [id number] [place] [address]- 5136 March, [facility] [place] [facility] [address] [id number] [place] [address]- 5767 Jan, [facility] [address] [id number] [place] [address]- 9968 Jan, [facility] [place] [facility] [address] [id number] [place] [address]- 6202 Jan, [facility] [place] [facility] [address] [id number] [place] [address]- 9075 Jan, [facility] [address] [id number] [place] [address]- 7751 Dec, [facility] [place] [facility] [address] [id number] [place] [address]- 9052 25 Dec, 2013 [facility] [address] [id number] [place] [address]- 2973 18 Dec, 2013 [facility] [place] [facility] [address] [id number] [place] [address]- 6243 18 Dec, 2013 [facility] [place] [facility] [address] [id number] [place] [address]- 5727 15 Dec, 2013 [facility] [place] [facility] [address] [id number] [place] [address]- 0113 14 Dec, 2013 [facility] [place] [facility] [address] [id number] [place] [address]- 6439 13 Dec, 2013 [facility] [place] [facility] [address] [id number] [place] 7846 Dec, [facility] [place] [facility] [address] [id number] [place] [address]- 3996 Dec, [facility] [place] [facility] [address] [id number] [place] [address]- 3400 Dec, [facility] [place] [facility] [address] [id number] [place] [address]- 1114 Dec, [facility] [place] [facility] [address] [id number] [place] [address]- 9921 Dec, [facility] [place] [facility] [address] [id number] [place] [address]- 6016 Dec, [facility] [place] [facility] [address] [id number] [place] [address]- 4135 Dec, [facility] [place] [facility] [address] [id number] [place] [address]- 0813 Dec, [facility] [place] [facility] [address] [id number] [place] [address]- 6689 Dec, [facility] [place] [facility] [address] [id number] [place] [address]- 3139 Dec, [facility] [place] [facility] [address] [id number] [place] [address]- 2146 Dec, [facility] [place] [facility] [address] [id number] [place] [address]- 7784 Nov, [facility] [place] [facility] [address] [id number] [place] [address]- 9283 Nov, [facility] [place] [facility] [address] [id number] [place] [address]- 5834 Nov, [facility] [place] [facility] [address] [id number] [place] [address]- 0602 Nov, [facility] [place] [facility] [address] [id number] [place] [address]- 8961 Nov, [facility] [place] [facility] [address] [id number] [place] [address]- 2661 15 Nov, 2013 [facility] [address] [id number] [place] [address]- 0200 Nov, [facility] [place] [facility] [address] [id number] [place] [address]- 5148 Nov, [facility] [address] [facility] [id number] [place] [address]- 8485 Oct, [facility] [place] [facility] [address] [id number] [place] [address]- 0912 Oct, [facility] [address] [id number] [place] [address]- 7534 Oct, [facility] [place] [facility] [address] [id number] [place] [address]- 6567 Oct, [facility] [address] [facility] [id number] [place] [address]- 7851 Oct, [facility] [place] [facility] [address] [id number] [place] [address]- 9710 Oct, [facility] [place] [facility] [address] [facility] [id number] [place] [address]- 3766 Sep, [facility] [place] [facility] [address] [facility] [id number] [place] [address]- 1942 Sep, [facility] [place] [facility] [address] [id number] [place] [address]- 9421 Sep, [facility] [place] [facility] [address] [id number], [place] [address]- 2544 Sep, [facility] [place] [facility] [address] [id number] [place] [address]- 6452 Aug, [facility] [place] [facility] [address] [facility] [id number] [place] [address]- 2786 Aug, [facility] [place] [facility] [address] [id number], [place] [address]- 5161 Aug, [facility] [place] [facility] [address] [id number] [place] [address]- 3736 Aug, [facility] [address] [id number] [place] [address]- 5320 Jul, [facility] [address] [id number] [place] [address]- 1709 05 Jul, 2013 [facility] [address] [id number] [place] [address]- 5083 Jun, [facility] [address] [id number] [place] [address]- 4723 Jun, [facility] [address] [id number] [place] [address] Apr, [facility] [address] [id number] [place] [address] Apr, [facility] [address] [id number] [place] [address] Apr, [facility] [address] [id number] [place] [address] Apr, [facility] [address] [id number] [place] [address] March, [facility] [address] [id number] [place] [address] March, [facility] [address] [id number] [place] [address] March, [facility] [address] [id number] [place] [address] Jan, [facility] [place] [facility] [address] [id number] [place] [address] Jan, [facility] [place] [facility] [address] [id number] [place] [address] Dec, [facility] [address] [id number] [place] [address] Dec, [facility] [address] [id number] [place] [address] Dec, [facility] [address] [id number] [place] [address] Dec, [facility] [address] [id number] [place] [address] Dec, [facility] [address] [id number] [place] [address] Dec, [facility] [address] [id number] [place] [address] Nov, [facility] [address] [id number] [place] [address] Nov, [facility] [address] [facility] [id number] [place] [address] Oct, [facility] [address] [id number] [place] [address] Oct, [facility] [address] [facility] [id number] [place] [address] Oct, [facility] [address] [facility] [id number] [place] [address] Oct, [facility] [address] [facility] [id number] [place] [address] Oct, [facility] [facility] [place] [facility] [address] [id number] [place] [address] Oct, [facility] [place] [facility] [address] [id number] [place] [address] Oct, [facility] [place] [facility] [address] [facility] [id number] [place] [address] Oct, [facility] [address] [facility] [id number] [place] [address] Oct, [facility] [place] [facility] [address] [id number] [place] [address] Oct, [facility] [place] [facility] [address] [id number] [place] [address] Sep, [facility] [place] [facility] [address] [id number] [place] [address] Sep, [facility] [place] [facility] [address] [id number] [place] [address] Sep, [facility] [place] [facility] [address] [id number] [place] [address] Sep, [facility] [place] [facility] [address] [id number] [place] [address] Aug, [facility] [place] [facility] [address] [id number] [place] [address] Aug, [facility] [place] [facility] [address] [id number] [place] [address] Aug, [facility] [place] [facility] [address] [id number] [place] [address] Jul, [facility] [place] [facility] [address] [id number] [place] [address] Jun, [facility] [place] [facility] [address] [facility] [id number] [place] [address] Jun, [facility] [place] [facility] [address] [id number] [place] [address] May, [facility] [place] [facility] [address] [id number] [place] [address] Apr, [facility] [place] [facility] [address] [id number] [place] [address] March, [facility] [place] [facility] [address] [id number] [place] [address] Jan, [facility] [place] [facility] [address] [id number] [place] [address] 29 Dec, 2011 [facility] [place] [facility] [address] [id number] [place] [address] 15 Dec, 2011 [facility] [place] [facility] [address] [id number] [place] [address] Nov, [facility] [place] [facility] [address] [id number] [place] [address] Oct, [facility] [place] [facility] [address] [id number] [place] [address] Oct, [facility] [place] [facility] [address] [id number] [place] [address] Sep, [facility] [place] [facility] [address] [id number] [place] [address] Aug, [facility] [place] [facility] [address] [id number] [place] [address] Dec, [facility] [place] [facility] [address] [id number] [place] [address] Oct, [facility] [place] [facility] [address] [id number] [place] [address] Oct, [facility] [place] [facility] [address] [id number] [place] [address] Oct, [facility] [place] [facility] [address] [id number] [place] [address] Jun, [facility] [place] [facility] [address] [id number] [place] [address] Jun, [facility] [place] [facility] [address] [id number] [place] [address] Oct, [facility] [place] [facility] [address] [id number] [place] [address] Sep, [facility] [place] [facility] [address] [facility] [id number] [place] [address] Sep, [facility] [place] [facility] [address] [facility] [id number] [place] [address] Sep, [facility] [address] [facility] [id number] [place] [address] Aug, [facility] [address] [facility] [id number] [place] [address] Dec, IMMUNIZATIONS No Known Immunizations SOCIAL HISTORY Never Assessed REASON FOR VISIT wrist pain, finger numbness, pain and numbness on the right hand PLAN OF CARE Activity Details Follow Up prn Reason: VITAL SIGNS Height 60 in 2018-02-09 Weight 177 lbs 2018-02-09 Temperature 98.8 degrees Fahrenheit 2018-02-09 Heart Rate 82 bpm 2018-02-09 Respiratory Rate 20 2018-02-09 BMI 34.56 kg/m2 2018-02-09 Blood pressure systolic 122 mmHg 2018-02-09 Blood pressure diastolic 76 mmHg 2018-02-09 MEDICATIONS Medication Instructions Dosage Frequency Start Date End Date Duration Status Welchol 625 MG Orally 3 times a day 1 tablets with meals 8h Jun, 30 day(s) Active Fluticasone Propionate 50 MCG/ACT Nasally Once a day 1 spray in each nostril 24h Dec, 14 days Active Cymbalta 30 MG Orally every morning 2 capsule Oct, 30 days Active Naproxen 500 mg Orally 2 times a day 1 tablet with food or milk as needed 12h Jan, Active Carpal Tunnel Wrist Stabilizer - as directed Jan, Active Carpal Tunnel Wrist Stabilizer - use while awake 24h Jan, Active Multivitamin Active RESULTS No Results PROCEDURES Procedure Date Ordered Result Body Site ASSAY THYROID STIM HORMONE February 09, 2018 VENIPUNCT, ROUTINE* February 09, 2018 INSTRUCTIONS MEDICATIONS ADMINISTERED No Known Medications MEDICAL (GENERAL) HISTORY Type Description Date Medical History GERD Medical History anxiety Medical History depression Surgical History C- section x 2 Surgical History tubal ligation Surgical History hysterectomy 2009 Surgical History cholecystectomy 2013 Surgical History Fibroid removal Hospitalization History inpatient treatment Mirtha SMITH 21 years old Hospitalization History surgeries
--- OUTSIDE RECORDS SUMMARY | 2019-01-13 21:56 | XMS REPORT ---
Author Author PADMINI LUJAN [facility] Address [address] [place] [address] Care Team Providers Care Rag Sorter Name Role Phone PADMINI LUJAN Unavailable PROBLEMS Type Condition ICD9-CM Code UCX44-SC Code Onset Dates Condition Status SNOMED Code Problem BMI 35.0-35.9,adult Z68.35 Active 851227509 Problem Tobacco use Z72.0 Active 398938512 Problem Chronic fatigue R53.82 Active 82609827 Problem Prediabetes R73.03 Active 381181136 Problem Chronic reflux esophagitis K21.0 Active 493584417 Problem Carpal tunnel syndrome of right wrist G56.01 Active 48003336 Problem PTSD (post-traumatic stress disorder) F43.10 Active 29666780 Problem 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 66876339 Problem Elevated lymphocytes D72.820 Active 17416083 Problem WILMA (generalized anxiety disorder) F41.1 Active 21954967 Problem Severe episode of recurrent major depressive disorder, without psychotic features F33.2 Active 44377285 ALLERGIES No Information ENCOUNTERS Encounter Location Date Diagnosis [facility] [id number] [place] [address] 99608- 0148 Jul, [facility] [id number] [place] [address] 68883- 5805 Jul, [facility] [id number] [place] [address] 71109- 9195 Jun, [facility] [address] 40847- 8923 Jun, [facility] [id number] [place] [address] 67852- 5357 Jun, [facility] [id number] [place] [address] 57336- 5160 May, Severe episode of recurrent major depressive disorder, without psychotic features F33.2 ; WILMA (generalized anxiety disorder) F41.1 and PTSD (post-traumatic stress disorder) F43.10 [place] [id number] [place] [address] 50410- 9080 May, Scalp cyst L72.9 [place] [id number] [place] [address] 45573- 6266 May, Severe episode of recurrent major depressive disorder, without psychotic features F33.2 ; WILMA (generalized anxiety disorder) F41.1 and PTSD (post-traumatic stress disorder) F43.10 [place] [id number] [place] [address] 38828- 8249 Apr, Severe episode of recurrent major depressive disorder, without psychotic features F33.2 ; WILMA (generalized anxiety disorder) F41.1 and PTSD (post-traumatic stress disorder) F43.10 [place] [id number] [place] [address] 67092- 8033 March, Severe episode of recurrent major depressive disorder, without 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 ; WILMA (generalized anxiety disorder) F41.1 and PTSD (post-traumatic stress disorder) F43.10 [place] [id number] [place] [address] 03384- 6539 March, Severe episode of recurrent major depressive disorder, without 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 ; WILMA (generalized anxiety disorder) F41.1 and PTSD (post-traumatic stress disorder) F43.10 [place] [address] [address] 7087 March, [facility] [id number] [place] [address] 86416- 6406 Jan, Severe episode of recurrent major depressive disorder, without 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 ; WILMA (generalized anxiety disorder) F41.1 and PTSD (post-traumatic stress disorder) F43.10 [place] [id number] [place] [address] 94018- 0364 Jan, Carpal tunnel syndrome of right wrist G56.01 [place] [id number] [place] [address] 41810- 7909 Jan, Severe episode of recurrent major depressive disorder, without psychotic features F33.2 ; WILMA (generalized anxiety disorder) F41.1 and PTSD (post-traumatic stress disorder) F43.10 [place] [id number] [place] [address] 62527- 6328 Dec, Severe episode of recurrent major depressive disorder, without psychotic features F33.2 ; WILMA (generalized anxiety disorder) F41.1 and PTSD (post-traumatic stress disorder) F43.10 [place] [address] [place] 307209- 7211 Dec, Severe episode of recurrent major depressive disorder, without psychotic features F33.2 ; WILMA (generalized anxiety disorder) F41.1 and PTSD (post-traumatic stress disorder) F43.10 [place] [id number] [place] [address] 10959- 5076 Dec, Severe episode of recurrent major depressive disorder, without psychotic features F33.2 ; WILMA (generalized anxiety disorder) F41.1 and PTSD (post-traumatic stress disorder) F43.10 [place] [id number] [place] [address] 08736- 4455 Dec, Severe episode of recurrent major depressive disorder, without psychotic features F33.2 [place] [id number] [place] [address] 85680- 0599 Dec, Severe episode of recurrent major depressive disorder, without 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 ; WILMA (generalized anxiety disorder) F41.1 and PTSD (post-traumatic stress disorder) F43.10 [place] [id number] [place] [address] 39447- 7033 Dec, Severe episode of recurrent major depressive disorder, without psychotic features F33.2 ; WILMA (generalized anxiety disorder) F41.1 and PTSD (post-traumatic stress disorder) F43.10 [place] [address] [place] [address] 3922 20 Dec, 2017 Severe episode of recurrent major depressive disorder, without psychotic features F33.2 and Anxiety state, unspecified F41.1 [place] [id number] [place] [address]- [address] 14 Dec, 2017 Severe episode of recurrent major depressive disorder, without psychotic features F33.2 and Anxiety state, unspecified F41.1 [place] [id number] [place] [address] 40725- 9659 Nov, Depression, major, recurrent, moderate F33.1 and Anxiety state, unspecified F41.1 [place] [id number] [place] [address] 6682 Nov, Depression, major, recurrent, moderate F33.1 and Anxiety state, unspecified F41.1 [place] [id number] [place] [address] 20993- 7994 Oct, Depression, major, recurrent, moderate F33.1 and Anxiety state, unspecified F41.1 [place] [id number] [place] [address] 76491- 1083 Oct, Depression, major, recurrent, moderate F33.1 and Post- cholecystectomy syndrome K91.5 [place] [id number] [place] [address] 37145- 9235 Oct, Depression, major, recurrent, moderate F33.1 and Anxiety state, unspecified F41.1 [place] [id number] [place] [address] 01985- 3440 Sep, Depression, major, recurrent, moderate F33.1 and Anxiety state, unspecified F41.1 [place] [id number] [place] [address] 12970- 7836 Sep, Depression, major, recurrent, moderate F33.1 and Anxiety state, unspecified F41.1 [place] [id number] [place] [address] 29139- 7562 Sep, Depression, major, recurrent, moderate F33.1 and Anxiety state, unspecified F41.1 [place] [address] 22049- 9762 Sep, Diarrhea, unspecified type R19.[address] 22755- 8669 Aug, Depression, major, recurrent, moderate F33.1 and Anxiety state, unspecified F41.[address] 32791- 7872 Aug, Depression, major, recurrent, moderate F33.1 and Anxiety state, unspecified F41.1 [place] [address]- 8472 Jul, Depression, major, recurrent, moderate F33.1 and Anxiety state, unspecified F41.[address] 53772- 5228 Jun, Depression, major, recurrent, moderate F33.1 and Anxiety state, unspecified F41.[address] 21193- 2280 Jun, Generalized abdominal pain R10.84 ; Diarrhea, unspecified type R19.7 ; Acute cystitis without hematuria N30.00 ; Abdominal bloating R14.0 and Elevated blood pressure reading R03.0 [place] [id number] [place] [address] 06175- 6506 Jun, Depression, major, recurrent, moderate F33.1 and Anxiety state, unspecified F41.1 [place] [address]- 6512 May, Depression, major, recurrent, moderate F33.1 and Anxiety state, unspecified F41.1 [place] [id number] [place] [address] 10608- 0859 May, Elevated lymphocytes D72.820 [place] [id number] [place] [address] 01595- 3666 May, Elevated lymphocytes D72.820 [place] [id number] [place] [address] 50326- 5804 May, BMI 35.0-35.9,adult Z68.35 ; Other fatigue R53.83 ; Pelvic pain R10.2 ; Tobacco use Z72.0 and Chronic reflux esophagitis K21.0 [place] [id number] [place] [address] 94710- 9184 Apr, [place] [id number] [place] [address] 81674- 7527 Apr, Depression, major, recurrent, moderate F33.1 and Anxiety state, unspecified F41.1 [place] [id number] [place] [address] 29900- 3744 Apr, Depression, major, recurrent, moderate F33.1 and Anxiety state, unspecified F41.1 [place] [id number] [place] [address] 23244- 4026 Apr, [place] [id number] [place] [address] 51961- 5753 March, Major depressive disorder, recurrent episode, mild F33.0 and Anxiety state, unspecified F41.1 [facility] [id number] [place] [address] 55912 -5780 March, Sore throat J02.9 and Submandibular lymphadenopathy R59.0 [place] [id number] [place] [address] 38905- 0670 Dec, Major depressive disorder, recurrent episode, mild F33.0 and Anxiety state, unspecified F41.1 [place] [id number] [place] [address] 37537- 7180 Dec, Major depressive disorder, recurrent episode, mild F33.0 and Anxiety state, unspecified F41.1 [place] [address] [address]- 6860 Dec, Major depressive disorder, recurrent episode, mild F33.0 and Anxiety state, unspecified F41.1 [place] [address] [address]- 8926 Sep, Major depressive disorder, recurrent episode, mild F33.0 and Anxiety state, unspecified F41.1 [place] [id number] [place] [address] 74008- 5314 Sep, Major depressive disorder, recurrent episode, moderate F33.1 and Anxiety state, unspecified F41.1 [place] [id number] [place] [address] 41610- 4650 Aug, Major depressive disorder, recurrent episode, moderate F33.1 and Anxiety state, unspecified F41.1 [place] [id number] [place] [address] 88602- 4871 Aug, Major depressive disorder, recurrent episode, moderate F33.1 and Anxiety state, unspecified F41.1 [place] [id number] [place] [address] 53144- 2388 Jul, Major depressive disorder, recurrent episode, moderate F33.1 and Anxiety state, unspecified F41.1 [place] [address], [place] [address]- 6153 Jul, Major depressive disorder, recurrent episode, moderate F33.1 and Anxiety state, unspecified F41.1 [place] [address], [place] [address]- 4958 Jun, Major depressive disorder, recurrent episode, moderate F33.1 and Anxiety state, unspecified F41.1 [place] [address], [place] [address]- 1502 Jun, Major depressive disorder, recurrent episode, moderate F33.1 and Anxiety state, unspecified F41.1 [place] [id number] [place] [address] 83631- 5244 May, Major depressive disorder, recurrent episode, moderate F33.1 and Anxiety state, unspecified F41.1 [facility] [id number] [place] [address] 24246- 4152 Apr, Major depressive disorder, recurrent episode, moderate F33.1 and Anxiety state, unspecified F41.1 [facility] [id number] [place] [address] 00260- 6366 Apr, Major depressive disorder, recurrent episode, moderate F33.1 and Anxiety state, unspecified F41.1 [place] [id number] [place] [address] 25702- 0583 Dec, Major depressive disorder, recurrent episode, moderate F33.1 and Anxiety state, unspecified F41.1 [place] [id number] [place] [address] 60039- 5468 Dec, Major depressive disorder, recurrent episode, moderate F33.1 and Anxiety state, unspecified F41.1 [facility] [id number] [place] [address] 59110 -5760 Dec, Pharyngitis J02.9 and Acute frontal sinusitis J01.10 [place] [id number] [place] [address] 03943- 9191 Nov, Bilateral occipital neuralgia M54.81 and Neck muscle spasm M62.838 [place] [id number] [place] [address] 21508- 7910 Nov, Major depressive disorder, recurrent episode, moderate F33.1 and Anxiety state, unspecified F41.1 [place] [id number] [place] [address] 32355- 3874 Sep, Major depressive disorder, recurrent episode, moderate F33.1 and Anxiety state, unspecified F41.1 [facility] [id number] [place] [address] 73429- 5941 Aug, Major depressive disorder, recurrent episode, moderate F33.1 and Anxiety state, unspecified F41.1 [facility] [address], [place] [address]- 3246 Jul, Abdominal pain 789.00 ; Hematochezia 578.1 and Weight loss 783.21 [facility] [address], [place] [address]- 9171 May, [facility] [id number] [place] [address] 00071- 2547 March, [facility] [id number] [place] [address] 13637- 5629 March, [facility] [id number] [place] [address] 11870- 4409 Jan, [facility] [id number] [place] [address] 10943- 3791 Jan, [facility] [id number] [place] [address] 01117- 9163 Dec, [facility] [address], [place] [address]- 7543 Dec, [facility] [id number] [place] [address] 90772- 1669 Dec, [facility] [address], [place] [address]- 1373 Dec, [facility] [address], [place] [address]- 2469 Dec, [facility] [address], [place] [address]- 7610 Dec, [facility] [address], [place] [address]- 8269 Jul, [facility] [address], [place] [address]- 1556 Jul, [facility] [id number] [place] [address]- 3839 11 Jul, 2013 [facility] [place] [facility] [address] [id number] [place] [address] 2547 11 Jul, 2013 [facility] [place] [facility] [address] [id number] [place] [address]- 2546 Jul, 2013 [facility] [place] [facility] [address] [id number] [place] [address]- 1819 10 Jul, 2013 [facility] [place] [facility] [address] [id number] [place] [address]- 7596 Jul, 2013 [facility] [place] [facility] [address] [id number] [place] [address]- 5996 Jul, 2013 [facility] [place] [facility] [address] [id number] [place] [address]- 1973 Jul, 2013 [facility] [place] [facility] [address] [id number] [place] [address]- 1485 Jul, 2013 [facility] [place] [facility] [address] [id number] [place] [address]- 7815 Jul, 2013 [facility] [place] [facility] [address] [id number] [place] [address]- 1391 Jul, 2013 [facility] [place] [facility] [address] [id number] [place] [address]- 6956 May, [facility] [place] [facility] [address] [id number] [place] [address]- 2541 May, [facility] [place] [facility] [address] [id number] [place] [address]- 8984 Apr, [facility] [place] [facility] [address] [id number] [place] [address]- 9762 Apr, [facility] [place] [facility] [address] [id number] [place] [address]- 4269 Apr, [facility] [place] [facility] [address] [id number] [place] [address]- 2000 Apr, [facility] [place] [facility] [address] [id number] [place] [address]- 0270 March, [facility] [place] [facility] [address] [id number] [place] [address]- 3205 March, [facility] [place] [facility] [address] [id number] [place] [address]- 8307 Jan, [facility] [place] [facility] [address] [id number] [place] [address]- 1908 Jan, [facility] [place] [facility] [address] [id number] [place] [address]- 5824 Jan, [facility] [place] [facility] [address] [id number] [place] [address]- 8506 Jan, [facility] [place] [facility] [address] [id number] [place] [address]- 5452 Dec, [facility] [place] [facility] [address] [id number] [place] [address]- 3928 Dec, [facility] [place] [facility] [address] [id number] [place] [address]- 1230 18 Dec, 2013 [facility] [place] [facility] [address] [id number] [place] [address]- 4257 18 Dec, 2013 [facility] [place] [facility] [address] [id number] [place] [address]- 7549 15 Dec, 2013 [facility] [place] [facility] [address] [id number] [place] [address]- 8885 14 Dec, 2013 [facility] [place] [facility] [address] [id number] [place] [address]- 2466 13 Dec, 2013 [facility] [place] [facility] [address] [id number] [place] [address]- 5458 13 Dec, 2013 [facility] [place] [facility] [address] [id number] [place] 8167 12 Dec, 2013 [facility] [place] [facility] [address] [id number] [place] [address]- 8932 Dec, [facility] [place] [facility] [address] [id number] [place] [address]- 1130 Dec, [facility] [place] [facility] [address] [id number] [place] [address]- 1540 Dec, [facility] [place] [facility] [address] [id number] [place] [address]- 4559 Dec, [facility] [place] [facility] [address] [id number] [place] [address]- 6134 Dec, [facility] [place] [facility] [address] [id number] [place] [address]- 6767 Dec, [facility] [place] [facility] [address] [id number] [place] [address]- 9746 Dec, [facility] [place] [facility] [address] [id number] [place] [address]- 5984 Dec, [facility] [place] [facility] [address] [id number] [place] [address]- 0059 Dec, [facility] [place] [facility] [address] [id number] [place] [address]- 2890 Nov, [facility] [place] [facility] [address] [id number] [place] [address]- 5203 Nov, [facility] [place] [facility] [address] [id number] [place] [address]- 6076 Nov, [facility] [place] [facility] [address] [id number] [place] [address]- 2909 Nov, [facility] [place] [facility] [address] [id number] [place] [address]- 5776 Nov, [facility] [place] [facility] [address] [id number] [place] [address]- 8002 Nov, [facility] [place] [facility] [address] [id number], [place] [address]- 7104 Nov, [facility] [place] [facility] [address] [id number] [place] [address]- 8020 Nov, [facility] [place] [facility] [address] [id number] [place] [address]- 3315 Oct, [facility] [place] [facility] [address] [id number] [place] [address]- 2238 Oct, [facility] [place] [facility] [address] [id number] [place] [address]- 4547 Oct, [facility] [place] [facility] [address] [id number] [place] [address]- 4653 Oct, [facility] [place] [facility] [address] [id number] [place] [address]- 5735 Oct, [facility] [place] [facility] [address] [id number] [place] [address]- 3516 Oct, [facility] [place] [facility] [address] [id number] [place] [address]- 2011 Sep, [facility] [place] [facility] [address] [id number] [place] [address]- 4112 Sep, [facility] [place] [facility] [address] [id number] [place] [address]- 7617 Sep, [facility] [place] [facility] [address] [id number] [place] [address]- 2750 Sep, [facility] [place] [facility] [address] [id number] [place] [address]- 4925 Aug, [facility] [place] [facility] [address] [id number] [place] [address]- 5322 Aug, [facility] [place] [facility] [address] [id number] [place] [address]- 8730 Aug, [facility] [place] [facility] [address] [id number] [place] [address]- 2646 Aug, [facility] [place] [facility] [address] [id number] [place] [address]- 6666 Jul, [facility] [address] [id number] [place] [address]- 0241 Jul, [facility] [place] [facility] [address] [id number] [place] [address]- 5870 Jun, [facility] [place] [facility] [address] [id number] [place] [address] 2546 Jun, [facility] [place] [facility] [address] [id number] [place] [address]- 3953 Apr, [facility] [place] [facility] [address] [id number] [place] [address]- 4502 Apr, [facility] [place] [facility] [address] [id number] [place] [address]- 5691 Apr, [facility] [place] [facility] [address] [id number] [place] [address]- 0506 Apr, [facility] [place] [facility] [address] [id number] [place] [address]- 2175 March, [facility] [address] [id number] [place] [address]- 2553 March, [facility] [place] [facility] [address] [id number] [place] [address] March, [facility] [place] [facility] [address] [id number] [place] [address] Jan, [facility] [place] [facility] [address] [id number] [place] [address] Jan, [facility] [place] [facility] [address] [id number] [place] [address] Dec, [facility] [place] [facility] [address] [id number] [place] [address] Dec, [facility] [place] [facility] [address] [id number] [place] [address] Dec, [facility] [place] [facility] [address] [id number] [place] [address] 28 Dec, 2012 [facility] [address] [id number] [place] [address] Dec, [facility] [address] [id number] [place] [address] Dec, [facility] [address] [id number] [place] [address] Nov, [facility] [address] [id number] [place] [address] Nov, [facility] [address] [id number] [place] [address] Oct, [facility] [address] [id number] [place] [address] Oct, [facility] [address] [id number] [place] [address] Oct, [facility] [address] [id number] [place] [address] Oct, [facility] [address] [id number] [place] [address] Oct, [facility] [address] [id number] [place] [address] Oct, [facility] [address] [id number] [place] [address] Oct, [facility] [address] [id number] [place] [address] Oct, [facility] [facility] [address] [id number] [place] [address] Oct, [facility] [address] [id number] [place] [address] Oct, [facility] [address] [id number] [place] [address] Sep, [facility] [place] [facility] [address] [id number] [place] [address] Sep, [facility] [place] [facility] [address] [id number] [place] [address] Sep, [facility] [place] [facility] [address] [id number] [place] [address] Sep, [facility] [place] [facility] [address] [id number] [place] [address] Aug, [facility] [place] [facility] [address] [id number] [place] [address] Aug, [facility] [place] [facility] [address] [id number] [place] [address] Aug, [facility] [place] [facility] [address] [facility] [id number] [place] [address] Jul, [facility] [place] [facility] [address] [id number], [place] [address] Jun, [facility] [place] [facility] [address] [id number] [place] [address] Jun, [facility] [place] [facility] [address] [facility] [id number], [place] [address] May, [facility] [place] [facility] [address] [id number], [place] [address] Apr, [facility] [place] [facility] [address] [id number], [place] [address] March, [facility] [place] [facility] [address] [id number] [place] [address] Jan, [facility] [place] [facility] [address] [id number], [place] [address] Dec, [facility] [place] [facility] [address] [facility] [id number] [place] [address] Dec, [facility] [place] [facility] [address] [id number] [place] [address] Nov, [facility] [address] [id number] [place] [address] Oct, [facility] [place] [facility] [address] [id number] [place] [address] Oct, [facility] [place] [facility] [address] [id number] [place] [address] Sep, [facility] [place] [facility] [address] [id number] [place] [address] Aug, [facility] [place] [facility] [address] [id number] [place] [address] Dec, [facility] [place] [facility] [address] [id number] [place] [address] Oct, [facility] [place] [facility] [address] [id number] [place] [address] Oct, [facility] [place] [facility] [address] [id number] [place] [address] Oct, [facility] [place] [facility] [address] [id number] [place] [address] Jun, [facility] [place] [facility] [address] [id number] [place] [address] Jun, [facility] [place] [facility] [address] [id number] [place] [address] Oct, [facility] [place] [facility] [address] [id number] [place] [address] Sep, [facility] [place] [facility] [address] [id number] [place] [address] Sep, [facility] [place] [facility] [address] [id number] [place] [address] Sep, [facility] [place] [facility] [address] [id number] [place] [address] Aug, [facility] [address] [facility] [id number] [place] [address] Dec, IMMUNIZATIONS No Known Immunizations SOCIAL HISTORY Never Assessed REASON FOR VISIT Follow-up Depression/Anxiety PLAN OF CARE Activity Details Follow Up 1 Week Reason: Follow-up VITAL SIGNS MEDICATIONS Unknown Medications RESULTS No Results PROCEDURES Procedure Date Ordered Result Body Site Psychotherapy, patient &/family, 45 minutes, established patient February 03, 2018 INSTRUCTIONS MEDICATIONS ADMINISTERED No Known Medications MEDICAL (GENERAL) HISTORY Type Description Date Medical History GERD Medical History anxiety Medical History depression Surgical History C- section x 2 Surgical History tubal ligation Surgical History hysterectomy 2008 Surgical History cholecystectomy 2013 Surgical History Fibroid removal Hospitalization History inpatient treatment Mirtha SMITH 21 years old Hospitalization History surgeries
--- OUTSIDE RECORDS SUMMARY | 2019-01-13 21:56 | XMS REPORT ---
Author Author MAURICIO PJ [facility] Address [address] [place] [address] Care Team Providers Care Habilitation Specialist Name Role Phone INGRISMAU PJ Unavailable PROBLEMS Type Condition ICD9-CM Code [id number] Code Onset Dates Condition Status SNOMED Code Problem BMI 35.0-35.9,adult Z68.35 Active 349482198 Problem Tobacco use Z72.0 Active 974201260 Problem Chronic fatigue R53.82 Active 91425626 Problem Prediabetes R73.03 Active 988204762 Problem Chronic reflux esophagitis K21.0 Active 436531548 Problem Carpal tunnel syndrome of right wrist G56.01 Active 91924866 Problem PTSD (post-traumatic stress disorder) F43.10 Active 25171473 Problem 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 81361754 Problem Elevated lymphocytes D72.820 Active 37314628 Problem WILMA (generalized anxiety disorder) F41.1 Active 91708460 Problem Severe episode of recurrent major depressive disorder, without psychotic features F33.2 Active 52427345 ALLERGIES No Information ENCOUNTERS Encounter Location Date Diagnosis [facility] [id number] [place] [address] 95497- 0126 Jul, [facility] [id number] [place] [address] 76927- 4453 Jul, [facility] [id number] [place] [address] 02862- 5933 Jun, [facility] [id number] [place] [address] 81406- 5335 Jun, [facility] [id number] [place] [address] 49174- 6766 Jun, [facility] [id number] [place] [address] 64091- 6542 May, Severe episode of recurrent major depressive disorder, without psychotic features F33.2 ; WILMA (generalized anxiety disorder) F41.1 and PTSD (post-traumatic stress disorder) F43.10 [facility] [id number] [place] [address] 86643- 4411 May, Scalp cyst L72.9 [facility] [id number] [place] [address] 89567- 2024 May, Severe episode of recurrent major depressive disorder, without psychotic features F33.2 ; WILMA (generalized anxiety disorder) F41.1 and PTSD (post-traumatic stress disorder) F43.10 [facility] [id number] [place] [address] 38564- 7918 Apr, Severe episode of recurrent major depressive disorder, without psychotic features F33.2 ; WILMA (generalized anxiety disorder) F41.1 and PTSD (post-traumatic stress disorder) F43.10 [facility] [facility] [id number] [place] [address] 86749- 4676 March, Severe episode of recurrent major depressive disorder, without 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 ; WILMA (generalized anxiety disorder) F41.1 and PTSD (post-traumatic stress disorder) F43.10 [facility] [id number] [place] [address] 93172- 8863 March, Severe episode of recurrent major depressive disorder, without psychotic features F33.2 ; WILMA (generalized anxiety disorder) F41.1 and PTSD (post-traumatic stress disorder) F43.10 [facility] [address] [address] 5110 March, [facility] [id number] [place] [address] 16439- 8155 Jan, Severe episode of recurrent major depressive disorder, without 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 ; WILMA (generalized anxiety disorder) F41.1 and PTSD (post-traumatic stress disorder) F43.10 [facility] [id number] [place] [address] 63598- 6902 Jan, Carpal tunnel syndrome of right wrist G56.01 [facility] [id number] [place] [address] 99484- 5713 Jan, Severe episode of recurrent major depressive disorder, without 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 ; WILMA (generalized anxiety disorder) F41.1 and PTSD (post-traumatic stress disorder) F43.10 [facility] [id number] [place] [address] 74869- 4435 Dec, Severe episode of recurrent major depressive disorder, without psychotic features F33.2 ; WILMA (generalized anxiety disorder) F41.1 and PTSD (post-traumatic stress disorder) F43.10 [facility] [facility] [id number] [place] [address] 83641- 5059 Dec, Severe episode of recurrent major depressive disorder, without psychotic features F33.2 ; WILMA (generalized anxiety disorder) F41.1 and PTSD (post-traumatic stress disorder) F43.10 [facility] [id number] [place] [address] 20516- 5673 Dec, Severe episode of recurrent major depressive disorder, without psychotic features F33.2 ; WILMA (generalized anxiety disorder) F41.1 and PTSD (post-traumatic stress disorder) F43.10 [facility] [id number] [place] [address] 45722- 2852 Dec, Severe episode of recurrent major depressive disorder, without 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 [facility] [id number] [place] [address] 24627- 8078 Dec, Severe episode of recurrent major depressive disorder, without psychotic features F33.2 ; WILMA (generalized anxiety disorder) F41.1 and PTSD (post-traumatic stress disorder) F43.10 [place] [address] [place] [address]- 3681 Dec, Severe episode of recurrent major depressive disorder, without psychotic features F33.2 ; WILMA (generalized anxiety disorder) F41.1 and PTSD (post-traumatic stress disorder) F43.10 [facility] [facility] [id number] [place] [address] 51624- 7771 20 Dec, 2017 Severe episode of recurrent major depressive disorder, without 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 and Anxiety state, unspecified F41.1 [facility] [id number] [place] [address] 26705- 2055 14 Dec, 2017 Severe episode of recurrent major depressive disorder, without psychotic features F33.2 and Anxiety state, unspecified F41.1 [facility] [id number] [place] [address] 62975- 9044 Nov, Depression, major, recurrent, moderate F33.1 and Anxiety state, unspecified F41.1 [address] [id number] [place] [address] 23401- 8630 Nov, Depression, major, recurrent, moderate F33.1 and Anxiety state, unspecified F41.1 [place] [id number] [place] [address] 18962- 1419 Oct, Depression, major, recurrent, moderate F33.1 and Anxiety state, unspecified F41.1 [facility] [id number] [place] [address] 53292- 9676 07 Oct, 2017 Depression, major, recurrent, moderate F33.1 and Post- cholecystectomy syndrome K91.5 [place] [id number] [place] [address] 73001- 8333 07 Oct, 2017 Depression, major, recurrent, moderate F33.1 and Anxiety state, unspecified F41.1 [facility] [facility] [id number] [place] [address] 80842- 3798 30 Sep, 2017 Depression, major, recurrent, moderate F33.1 and Anxiety state, unspecified F41.1 [address] [id number] [place] [address] 80829- 6544 16 Sep, 2017 Depression, major, recurrent, moderate F33.1 and Anxiety state, unspecified F41.1 [facility] [id number] [place] [address] 73121- 6063 Sep, Depression, major, recurrent, moderate F33.1 and Anxiety state, unspecified F41.1 [facility] [id number] [place] [address] [address]36 Sep, Diarrhea, unspecified type R19.7 [facility] [facility] [id number] [place] [address] 95957- 7817 Aug, Depression, major, recurrent, moderate F33.1 and Anxiety state, unspecified F41.1 [facility] [facility] [id number] [place] [address]- 3267 Aug, Depression, major, recurrent, moderate F33.1 and Anxiety state, unspecified F41.1 [facility] [id number] [place] [address]- 3601 Jul, Depression, major, recurrent, moderate F33.1 and Anxiety state, unspecified F41.1 [id number] [place] [address] 32131- 4415 Jun, Depression, major, recurrent, moderate F33.1 and Anxiety state, unspecified F41.1 [place] [id number] [place] [address] 84212- 8877 Jun, Generalized abdominal pain R10.84 ; Diarrhea, unspecified type R19.7 ; Acute cystitis without hematuria N30.00 ; Abdominal bloating R14.0 and Elevated blood pressure reading R03.0 [facility] [facility] [id number] [place] [address] 28355- 5768 Jun, Depression, major, recurrent, moderate F33.1 and Anxiety state, unspecified F41.1 [address] [id number] [place] [address]- 8596 May, Depression, major, recurrent, moderate F33.1 and Anxiety state, unspecified F41.1 [id number] [place] [address] 77896- 4719 May, Elevated lymphocytes D72.820 [facility] [address] [place] [address] 18445- 3768 May, Elevated lymphocytes D72.820 [facility] [facility] [id number] [place] [address] 24083- 3429 May, BMI 35.0-35.9,adult Z68.35 ; Other fatigue R53.83 ; Pelvic pain R10.2 ; Tobacco use Z72.0 and Chronic reflux esophagitis K21.0 [place] [id number] [place] [address] 04660- 7052 Apr, [facility] [facility] [id number] [place] [address] 43254- 1756 Apr, Depression, major, recurrent, moderate F33.1 and Anxiety state, unspecified F41.1 [facility] [facility] [id number] [place] [address] 45276- 7022 Apr, Depression, major, recurrent, moderate F33.1 and Anxiety state, unspecified F41.1 [facility] [facility] [id number] [place] [address] 64372- 8330 Apr, [facility] [facility] [id number] [place] [address] 77779- 9760 March, Major depressive disorder, recurrent episode, mild F33.0 and Anxiety state, unspecified F41.1 [facility] [address] [place] [address] 03437 -4815 March, Sore throat J02.9 and Submandibular lymphadenopathy R59.0 [place] [id number] [place] [address] 78052- 2458 Dec, Major depressive disorder, recurrent episode, mild F33.0 and Anxiety state, unspecified F41.1 [place] [address] [place] [address] 90274- 0019 Dec, Major depressive disorder, recurrent episode, mild F33.0 and Anxiety state, unspecified F41.1 [place] [address] [address]- 4716 Dec, Major depressive disorder, recurrent episode, mild F33.0 and Anxiety state, unspecified F41.1 [place] [address] [address]- 4547 Sep, Major depressive disorder, recurrent episode, mild F33.0 and Anxiety state, unspecified F41.1 [place] [id number] [place] [address] 92318- 0242 Sep, Major depressive disorder, recurrent episode, moderate F33.1 and Anxiety state, unspecified F41.1 [place] [id number] [place] [address] 06493- 7492 Aug, Major depressive disorder, recurrent episode, moderate F33.1 and Anxiety state, unspecified F41.1 [place] [address] [place] [address] 11608- 2383 Aug, Major depressive disorder, recurrent episode, moderate F33.1 and Anxiety state, unspecified F41.1 [place] [id number] [place] [address] 55926- 2620 Jul, Major depressive disorder, recurrent episode, moderate F33.1 and Anxiety state, unspecified F41.1 [place] [address] [address]- 6714 Jul, Major depressive disorder, recurrent episode, moderate F33.1 and Anxiety state, unspecified F41.1 [place] [address] [place] [address]- 5526 Jun, Major depressive disorder, recurrent episode, moderate F33.1 and Anxiety state, unspecified F41.1 [place] [address] [address]- 7427 Jun, Major depressive disorder, recurrent episode, moderate F33.1 and Anxiety state, unspecified F41.1 [place] [id number] [place] [address] 46995- 8831 May, Major depressive disorder, recurrent episode, moderate F33.1 and Anxiety state, unspecified F41.1 [facility] [id number] [place] [address] 19099- 0388 Apr, Major depressive disorder, recurrent episode, moderate F33.1 and Anxiety state, unspecified F41.1 [place] [id number] [place] [address] 13322- 9706 Apr, Major depressive disorder, recurrent episode, moderate F33.1 and Anxiety state, unspecified F41.1 [place] [address] 45805- 5948 Dec, Major depressive disorder, recurrent episode, moderate F33.1 and Anxiety state, unspecified F41.1 [place] [id number] [place] [address] 73276- 9937 Dec, Major depressive disorder, recurrent episode, moderate F33.1 and Anxiety state, unspecified F41.1 [facility] [id number] [place] [address] 54848 -1220 Dec, Pharyngitis J02.9 and Acute frontal sinusitis J01.10 [place] [id number] [place] [address] 17444- 2498 Nov, Bilateral occipital neuralgia M54.81 and Neck muscle spasm M62.838 [place] [id number] [place] [address] 62632- 0987 Nov, Major depressive disorder, recurrent episode, moderate F33.1 and Anxiety state, unspecified F41.1 [place] [id number] [place] [address] 56147- 5555 Sep, Major depressive disorder, recurrent episode, moderate F33.1 and Anxiety state, unspecified F41.1 [place] [id number] [place] [address] 73141- 8711 08 Oct, 2015 Major depressive disorder, recurrent episode, moderate F33.1 and Anxiety state, unspecified F41.1 [facility] [address] [address]- 8008 Jul, Abdominal pain 789.00 ; Hematochezia 578.1 and Weight loss 783.21 [facility] [address] [address]- 5270 May, [facility] [id number] [place] [address] 75377- 8837 March, [facility] [id number] [place] [address] 74450- 7740 March, [facility] [id number] [place] [address] 55546- 0204 Jan, [facility] [id number] [place] [address] 74596- 8245 Jan, [facility] [id number] [place] [address] 61633- 7309 Dec, [facility] [address] [place] [address] 03226- 4798 Dec, [facility] [id number] [place] [address] 61791- 9464 Dec, [facility] [address] [address]- 6603 Dec, [facility] [id number] [place] [address]- 5163 Dec, [facility] [address] [place] [address] 663946- 9077 Dec, [facility] [id number] [place] [address] 09315915- 3456 Jul, [facility] [address] 4227 Jul, [facility] [place] [facility] [address] [id number] [place] [address]- 0507 11 Jul, 2013 [facility] [place] [facility] [address] [id number] [place] [address]- 3146 11 Jul, 2013 [facility] [place] [facility] [address] [id number] [place] [address]- 2546 Jul, 2013 [facility] [place] [facility] [address] [id number] [place] [address] 2546 10 Jul, 2013 [facility] [place] [facility] [address] [id number] [place] [address]- 254 Jul, 2013 [facility] [place] [facility] [address] [id number] [place] [address]- 4777 Jul, 2013 [facility] [place] [facility] [address] [id number] [place] [address]- 4455 Jul, 2013 [facility] [place] [facility] [address] [id number] [place] [address]- 1957 Jul, 2013 [facility] [place] [facility] [address] [id number] [place] [address]- 5226 Jul, 2013 [facility] [place] [facility] [address] [id number] [place] [address]- 7187 Jul, 2013 [facility] [place] [facility] [address] [id number] [place] [address]- 6358 May, [facility] [place] [facility] [address] [id number] [place] [address]- 7681 May, [facility] [place] [facility] [address] [id number] [place] [address]- 9276 Apr, [facility] [place] [facility] [address] [id number] [place] [address]- 3608 Apr, [facility] [place] [facility] [address] [id number] [place] [address]- 2678 Apr, [facility] [place] [facility] [address] [id number] [place] [address]- 8959 Apr, [facility] [place] [facility] [address] [id number] [place] [address]- 3382 March, [facility] [place] [facility] [address] [id number] [place] [address]- 9486 March, [facility] [place] [facility] [address] [id number] [place] 9488 Jan, [facility] [place] [facility] [address] [id number] [place] [address]- 6384 Jan, [facility] [place] [facility] [address] [id number] [place] [address]- 2749 Jan, [facility] [place] [facility] [address] [id number] [place] [address]- 1700 Jan, [facility] [place] [facility] [address] [id number] [place] [address]- 8541 Dec, [facility] [place] [facility] [address] [id number] [place] [address]- 5618 25 Dec, 2013 [facility] [place] [facility] [address] [id number] [place] [address]- 2209 18 Dec, 2013 [facility] [place] [facility] [address] [id number] [place] [address]- 0923 18 Dec, 2013 [facility] [place] [facility] [address] [id number] [place] [address]- 3538 15 Dec, 2013 [facility] [place] [facility] [address] [id number] [place] [address]- 4453 14 Dec, 2013 [facility] [place] [facility] [address] [id number] [place] [address]- 0940 13 Dec, 2013 [facility] [place] [facility] [address] [id number] [place] [address]- 4959 13 Dec, 2013 [facility] [place] [facility] [address] [id number] [place] [address]- 8550 12 Dec, 2013 [facility] [place] [facility] [address] [id number] [place] [address]- 3928 Dec, [facility] [place] [facility] [address] [id number] [place] [address]- 3160 Dec, [facility] [place] [facility] [address] [id number] [place] 6285 Dec, [facility] [place] [facility] [address] [id number] [place] [address]- 2393 Dec, [facility] [place] [facility] [address] [id number] [place] [address]- 6742 Dec, [facility] [place] [facility] [address] [id number] [place] [address]- 2162 Dec, [facility] [place] [facility] [address] [id number] [place] [address]- 8114 Dec, [facility] [place] [facility] [address] [id number] [place] [address]- 0447 Dec, [facility] [place] [facility] [address] [id number] [place] [address]- 8129 Dec, [facility] [place] [facility] [address] [id number] [place] [address]- 8298 Nov, [facility] [place] [facility] [address] [id number] [place] [address]- 4211 Nov, [facility] [place] [facility] [address] [id number] [place] [address]- 4535 Nov, [facility] [place] [facility] [address] [id number] [place] [address]- 7535 Nov, [facility] [place] [facility] [address] [id number] [place] [address]- 0971 Nov, [facility] [place] [facility] [address] [id number] [place] [address]- 7250 Nov, [facility] [place] [facility] [address] [id number] [place] [address]- 2581 Nov, [facility] [address] [id number] [place] [address]- 9968 Nov, [facility] [place] [facility] [address] [id number] [place] [address]- 8506 Oct, [facility] [place] [facility] [address] [id number] [place] [address]- 4815 Oct, [facility] [place] [facility] [address] [id number] [place] [address]- 5760 Oct, [facility] [place] [facility] [address] [id number] [place] [address]- 0836 Oct, [facility] [place] [facility] [address] [id number] [place] [address]- 7286 Oct, [facility] [place] [facility] [address] [id number] [place] [address]- 2646 Oct, [facility] [place] [facility] [address] [id number], [place] [address]- 9518 Sep, [facility] [place] [facility] [address] [id number] [place] [address]- 0319 Sep, [facility] [place] [facility] [address] [id number], [place] [address]- 9187 Sep, [facility] [place] [facility] [address] [facility] [id number], [place] [address]- 3655 Sep, [facility] [place] [facility] [address] [id number], [place] [address]- 0074 Aug, [facility] [place] [facility] [address] [id number], [place] [address]- 5884 Aug, [facility] [place] [facility] [address] [id number], [place] [address]- 1206 Aug, [facility] [place] [facility] [address] [id number], [place] [address]- 3968 Aug, [facility] [place] [facility] [address] [id number], [place] [address]- 6484 Jul, [facility] [address] [id number] [place] [address]- 3164 Jul, [facility] [place] [facility] [address] [id number] [place] [address]- 5200 Jun, [facility] [address] [id number] [place] [address]- 2954 Jun, [facility] [address] [id number] [place] [address]- 7656 Apr, [facility] [address] [id number] [place] [address]- 9201 Apr, [facility] [address] [id number] [place] [address]- 6120 Apr, [facility] [address] [id number] [place] [address]- 9998 Apr, [facility] [address] [id number] [place] [address] March, [facility] [address] [id number] [place] [address] March, [facility] [address] [facility] [id number] [place] [address] March, [facility] [address] [id number] [place] [address] Jan, [facility] [place] [facility] [address] [id number] [place] [address] Jan, [facility] [place] [facility] [address] [id number] [place] [address] Dec, [facility] [place] [facility] [address] [id number] [place] [address] Dec, [facility] [place] [facility] [address] [facility] [id number] [place] [address] Dec, [facility] [place] [facility] [address] [id number] [place] [address] 28 Dec, 2012 [facility] [address] [id number] [place] [address] Dec, [facility] [place] [facility] [address] [id number] [place] [address] 07 Dec, 2012 [facility] [address] [id number] [place] [address] Nov, [facility] [place] [facility] [address] [id number] [place] [address] Nov, [facility] [place] [facility] [address] [id number] [place] [address] Oct, [facility] [address] [id number] [place] [address] Oct, [facility] [address] [id number] [place] [address] Oct, [facility] [address] [id number] [place] [address] Oct, [facility] [address] [id number] [place] [address] Oct, [facility] [address] [id number] [place] [address] Oct, [facility] [address] [id number] [place] [address] Oct, [facility] [place] [facility] [address] [id number] [place] [address] Oct, [facility] [place] [facility] [address] [id number] [place] [address] Oct, [facility] [place] [facility] [address] [id number] [place] [address] Oct, [facility] [place] [facility] [address] [id number] [place] [address] Sep, [facility] [place] [facility] [address] [id number] [place] [address] Sep, [facility] [place] [facility] [address] [id number] [place] [address] Sep, [facility] [place] [facility] [address] [id number] [place] [address] Sep, [facility] [place] [facility] [address] [id number] [place] [address] Aug, [facility] [place] [facility] [address] [id number] [place] [address] Aug, [facility] [place] [facility] [address] [id number] [place] [address] Aug, [facility] [place] [facility] [address] [id number] [place] [address] Jul, [facility] [place] [facility] [address] [id number] [place] [address] Jun, [facility] [place] [facility] [address] [id number] [place] [address] Jun, [facility] [place] [facility] [address] [id number] [place] [address] May, [facility] [place] [facility] [address] [id number], [place] [address] Apr, [facility] [place] [facility] [address] [id number], [place] [address] March, [facility] [place] [facility] [address] [id number] [place] [address] Jan, [facility] [place] [facility] [address] [id number] [place] [address] 29 Dec, 2011 [facility] [place] [facility] [address] [id number] [place] [address] Dec, [facility] [place] [facility] [address] [id number] [place] [address] Nov, [facility] [address] [id number] [place] [address] Oct, [facility] [place] [facility] [address] [id number] [place] [address] Oct, [facility] [address] [id number] [place] [address] Sep, [facility] [place] [facility] [address] [id number] [place] [address] Aug, [facility] [address] [id number] [place] [address] Dec, [facility] [place] [facility] [address] [id number] [place] [address] Oct, [facility] [place] [facility] [address] [id number] [place] [address] Oct, [facility] [address] [id number] [place] [address] Oct, [facility] [place] [facility] [address] [id number] [place] [address] Jun, [facility] [address] [id number] [place] [address] Jun, [facility] [place] [facility] [address] [id number] [place] [address] Oct, [facility] [place] [facility] [address] [id number] [place] [address] Sep, [facility] [place] [facility] [address] [id number] [place] [address] Sep, [facility] [place] [facility] [address] [id number] [place] [address] Sep, [facility] [place] [facility] [address] [id number] [place] [address] Aug, [facility] [address] [facility] [id number] [place] [address] Dec, IMMUNIZATIONS No Known Immunizations SOCIAL HISTORY Never Assessed REASON FOR VISIT f/u PLAN OF CARE Activity Details Follow Up 3 Months, prn Reason: VITAL SIGNS Height 60 in 2018-01-28 Weight 177 lbs 2018-01-28 Heart Rate 78 bpm 2018-01-28 Respiratory Rate 20 2018-01-28 BMI 34.56 kg/m2 2018-01-28 Blood pressure systolic 118 mmHg 2018-01-28 Blood pressure diastolic 78 mmHg 2018-01-28 MEDICATIONS Medication Instructions Dosage Frequency Start Date End Date Duration Status Welchol 625 MG Orally 3 times a day 1 tablets with meals 8h Jun, 30 day(s) Active Multivitamin Active Fluticasone Propionate 50 MCG/ACT Nasally Once a day 1 spray in each nostril 24h Dec, 14 days Active Cymbalta 30 MG Orally every morning 2 capsule Oct, 30 days Active RESULTS No Results PROCEDURES No [...]
--- OUTSIDE RECORDS SUMMARY | 2019-01-13 21:57 | XMS REPORT ---
Author Author PADMINI LUJAN [facility] Address [address] [place] [address] Care Team Providers Care Outpatient Case Manager Name Role Phone PADMINI LUJAN Unavailable PROBLEMS Type Condition ICD9-CM Code KMW27-LL Code Onset Dates Condition Status SNOMED Code Problem BMI 35.0-35.9,adult Z68.35 Active 841317403 Problem Tobacco use Z72.0 Active 157830288 Problem Chronic fatigue R53.82 Active 34792405 Problem Prediabetes R73.03 Active 664118445 Problem Chronic reflux esophagitis K21.0 Active 848258596 Problem Carpal tunnel syndrome of right wrist G56.01 Active 83402723 Problem PTSD (post-traumatic stress disorder) F43.10 Active 42957804 Problem 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 98322586 Problem Elevated lymphocytes D72.820 Active 30682171 Problem WILMA (generalized anxiety disorder) F41.1 Active 38235249 Problem Severe episode of recurrent major depressive disorder, without psychotic features F33.2 Active 76748961 ALLERGIES No Information ENCOUNTERS Encounter Location Date Diagnosis [facility] [id number] [place] [address] 63535- 7022 Jul, [facility] [id number] [place] [address] 90777- 8677 Jul, [facility] [id number] [place] [address] 54355- 9912 Jun, [facility] [address] 46168- 3172 Jun, [facility] [id number] [place] [address] 64275- 6777 Jun, [facility] [id number] [place] [address] 94156- 8610 May, Severe episode of recurrent major depressive disorder, without psychotic features F33.2 ; WILMA (generalized anxiety disorder) F41.1 and PTSD (post-traumatic stress disorder) F43.10 [place] [id number] [place] [address] 26633- 6178 May, Scalp cyst L72.9 [facility] [id number] [place] [address] 29015- 2274 May, Severe episode of recurrent major depressive disorder, without psychotic features F33.2 ; WILMA (generalized anxiety disorder) F41.1 and PTSD (post-traumatic stress disorder) F43.10 [facility] [id number] [place] [address] 75398- 4914 Apr, Severe episode of recurrent major depressive disorder, without psychotic features F33.2 ; WILMA (generalized anxiety disorder) F41.1 and PTSD (post-traumatic stress disorder) F43.10 [facility] [id number] [place] [address] 51421- 5475 March, Severe episode of recurrent major depressive disorder, without psychotic features F33.2 ; WILMA (generalized anxiety disorder) F41.1 and PTSD (post-traumatic stress disorder) F43.10 [facility] [place] [address] [place] [address] 11929- 4383 March, Severe episode of recurrent major depressive disorder, without psychotic features F33.2 ; WILMA (generalized anxiety disorder) F41.1 and PTSD (post-traumatic stress disorder) F43.10 [facility] [address] [address] 8[address] March, [facility] [id number] [place] [address] 44571- 6683 Jan, Severe episode of recurrent major depressive disorder, without psychotic features F33.2 ; WILMA (generalized anxiety disorder) F41.1 and PTSD (post-traumatic stress disorder) F43.10 [facility] [place] [id number] [place] [address] 11872- 4863 Jan, Carpal tunnel syndrome of right wrist G56.01 [facility] [id number] [place] [address] 05555- 1193 Jan, Severe episode of recurrent major depressive disorder, without psychotic features F33.2 ; WILMA (generalized anxiety disorder) F41.1 and PTSD (post-traumatic stress disorder) F43.10 [facility] [id number] [place] [address] 84658- 6029 Dec, Severe episode of recurrent major depressive disorder, without psychotic features F33.2 ; WILMA (generalized anxiety disorder) F41.1 and PTSD (post-traumatic stress disorder) F43.10 [place] [address] [place] 206789- 4686 Dec, Severe episode of recurrent major depressive disorder, without psychotic features F33.2 ; WILMA (generalized anxiety disorder) F41.1 and PTSD (post-traumatic stress disorder) F43.10 [facility] [id number] [place] [address] 43304- 8106 Dec, Severe episode of recurrent major depressive disorder, without 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 ; WILMA (generalized anxiety disorder) F41.1 and PTSD (post-traumatic stress disorder) F43.10 [facility] [id number] [place] [address] 31533- 9864 Dec, Severe episode of recurrent major depressive disorder, without psychotic features F33.2 [facility] [id number] [place] [address] 97051- 0198 Dec, Severe episode of recurrent major depressive disorder, without psychotic features F33.2 ; WILMA (generalized anxiety disorder) F41.1 and PTSD (post-traumatic stress disorder) F43.10 [facility] [id number] [place] [address] 91461- 2405 Dec, Severe episode of recurrent major depressive disorder, without psychotic features F33.2 ; WILMA (generalized anxiety disorder) F41.1 and PTSD (post-traumatic stress disorder) F43.10 [facility] [address] [place] [address] 7606 20 Dec, 2017 Severe episode of recurrent major depressive disorder, without psychotic features F33.2 and Anxiety state, unspecified F41.1 [facility] [id number] [place] [address]64 14 Dec, 2017 Severe episode of recurrent major depressive disorder, without psychotic features F33.2 and Anxiety state, unspecified F41.1 [facility] [id number] [place] [address] 38894- 0357 Nov, Depression, major, recurrent, moderate F33.1 and Anxiety state, unspecified F41.1 [facility] [id number] [place] [address] 4533 Nov, Depression, major, recurrent, moderate F33.1 and Anxiety state, unspecified F41.1 [facility] [id number] [place] [address] 80293- 5071 Oct, Depression, major, recurrent, moderate F33.1 and Anxiety state, unspecified F41.1 [facility] [id number] [place] [address] 41707- 8715 Oct, Depression, major, recurrent, moderate F33.1 and Post- cholecystectomy syndrome K91.5 [facility] [id number] [place] [address] 55271- 8688 Oct, Depression, major, recurrent, moderate F33.1 and Anxiety state, unspecified F41.1 [facility] [address] [place] [address] 52117- 3195 Sep, Depression, major, recurrent, moderate F33.1 and Anxiety state, unspecified F41.1 [facility] [id number] [place] [address] 64018- 8626 Sep, Depression, major, recurrent, moderate F33.1 and Anxiety state, unspecified F41.1 [facility] [id number] [place] [address] 91575- 9061 Sep, Depression, major, recurrent, moderate F33.1 and Anxiety state, unspecified F41.1 [facility] [address] 76967- 2905 Sep, Diarrhea, unspecified type R19.[address] 71202- 4370 Aug, Depression, major, recurrent, moderate F33.1 and Anxiety state, unspecified F41.[address] 13903- 3085 Aug, Depression, major, recurrent, moderate F33.1 and Anxiety state, unspecified F41.1 [place] [address]- 4683 Jul, Depression, major, recurrent, moderate F33.1 and Anxiety state, unspecified F41.[address] 37209- 9022 Jun, Depression, major, recurrent, moderate F33.1 and Anxiety state, unspecified F41.[address] 01463- 2651 Jun, Generalized abdominal pain R10.84 ; Diarrhea, unspecified type R19.7 ; Acute cystitis without hematuria N30.00 ; Abdominal bloating R14.0 and Elevated blood pressure reading R03.0 [place] [id number] [place] [address] 39256- 4249 Jun, Depression, major, recurrent, moderate F33.1 and Anxiety state, unspecified F41.1 [place] [address]- 1117 May, Depression, major, recurrent, moderate F33.1 and Anxiety state, unspecified F41.1 [place] [id number] [place] [address] 74214- 8948 May, Elevated lymphocytes D72.820 [facility] [id number] [place] [address] 99262- 7555 May, Elevated lymphocytes D72.820 [facility] [id number] [place] [address] 60404- 4930 May, BMI 35.0-35.9,adult Z68.35 ; Other fatigue R53.83 ; Pelvic pain R10.2 ; Tobacco use Z72.0 and Chronic reflux esophagitis K21.0 [facility] [id number] [place] [address] 65884- 5565 Apr, [facility] [id number] [place] [address] 52392- 3537 Apr, Depression, major, recurrent, moderate F33.1 and Anxiety state, unspecified F41.1 [facility] [id number] [place] [address] 32444- 8387 Apr, Depression, major, recurrent, moderate F33.1 and Anxiety state, unspecified F41.1 [facility] [id number] [place] [address] 50548- 0013 Apr, [facility] [id number] [place] [address] 40420- 0499 March, Major depressive disorder, recurrent episode, mild F33.0 and Anxiety state, unspecified F41.1 [facility] [id number] [place] [address] 23356 -1385 March, Sore throat J02.9 and Submandibular lymphadenopathy R59.0 [facility] [id number] [place] [address] 60231- 2341 Dec, Major depressive disorder, recurrent episode, mild F33.0 and Anxiety state, unspecified F41.1 [place] [address] [place] [address] 73763- 4156 Dec, Major depressive disorder, recurrent episode, mild F33.0 and Anxiety state, unspecified F41.1 [facility] [facility] [address] [address]- 7138 Dec, Major depressive disorder, recurrent episode, mild F33.0 and Anxiety state, unspecified F41.1 [place] [address] [address]- 5690 Sep, Major depressive disorder, recurrent episode, mild F33.0 and Anxiety state, unspecified F41.1 [facility] [id number] [place] [address] 17865- 1098 Sep, Major depressive disorder, recurrent episode, moderate F33.1 and Anxiety state, unspecified F41.1 [facility] [id number] [place] [address] 66646- 6906 Aug, Major depressive disorder, recurrent episode, moderate F33.1 and Anxiety state, unspecified F41.1 [facility] [id number] [place] [address] 41151- 7233 Aug, Major depressive disorder, recurrent episode, moderate F33.1 and Anxiety state, unspecified F41.1 [place] [address] [place] [address] 06152- 5543 Jul, Major depressive disorder, recurrent episode, moderate F33.1 and Anxiety state, unspecified F41.1 [place] [address] [address]- 5597 Jul, Major depressive disorder, recurrent episode, moderate F33.1 and Anxiety state, unspecified F41.1 [place] [address] [address]- 1741 Jun, Major depressive disorder, recurrent episode, moderate F33.1 and Anxiety state, unspecified F41.1 [place] [address] [address]- 5813 Jun, Major depressive disorder, recurrent episode, moderate F33.1 and Anxiety state, unspecified F41.1 [place] [address] [place] [address] 34698- 7830 May, Major depressive disorder, recurrent episode, moderate F33.1 and Anxiety state, unspecified F41.1 [facility] [id number] [place] [address] 65044- 0615 Apr, Major depressive disorder, recurrent episode, moderate F33.1 and Anxiety state, unspecified F41.1 [facility] [id number] [place] [address] 85838- 5029 Apr, Major depressive disorder, recurrent episode, moderate F33.1 and Anxiety state, unspecified F41.1 [facility] [place] [id number] [place] [address] 05097- 4578 Dec, Major depressive disorder, recurrent episode, moderate F33.1 and Anxiety state, unspecified F41.1 [facility] [id number] [place] [address] 46908- 8648 Dec, Major depressive disorder, recurrent episode, moderate F33.1 and Anxiety state, unspecified F41.1 [facility] [id number] [place] [address] 63798 -2976 Dec, Pharyngitis J02.9 and Acute frontal sinusitis J01.10 [place] [address] [place] [address] 35333- 8816 Nov, Bilateral occipital neuralgia M54.81 and Neck muscle spasm M62.838 [place] [id number] [place] [address] 76884- 9816 Nov, Major depressive disorder, recurrent episode, moderate F33.1 and Anxiety state, unspecified F41.1 [facility] [id number] [place] [address] 53549- 9282 Sep, Major depressive disorder, recurrent episode, moderate F33.1 and Anxiety state, unspecified F41.1 [facility] [address] [place] [address] 59296- 3669 Aug, Major depressive disorder, recurrent episode, moderate F33.1 and Anxiety state, unspecified F41.1 [facility] [address] [address]- 3881 Jul, Abdominal pain 789.00 ; Hematochezia 578.1 and Weight loss 783.21 [facility] [address] [address]- 9013 May, [facility] [id number] [place] [address] 32033- 0749 March, [facility] [address] [place] [address] 02464- 9033 March, [facility] [id number] [place] [address] 55684- 0091 Jan, [facility] [address] [place] [address] 25787- 4577 Jan, [facility] [id number] [place] [address] 05262- 7171 Dec, [facility] [address] [address]- 0093 Dec, [facility] [address] [place] [address] 02063- 5968 Dec, [facility] [address] [address]- 6091 Dec, [facility] [address] [address]- 8989 Dec, [facility] [address] [address]- 8758 Dec, [facility] [address] [address]- 0143 Jul, [facility] [address] [address]- 5209 Jul, [facility] [id number] [place] [address]- 0114 11 Jul, 2013 [facility] [place] [facility] [address] [id number] [place] [address] 2547 11 Jul, 2013 [facility] [place] [facility] [address] [id number] [place] [address]- 2546 Jul, 2013 [facility] [place] [facility] [address] [id number] [place] [address]- 5061 10 Jul, 2013 [facility] [place] [facility] [address] [id number] [place] [address]- 7350 Jul, 2013 [facility] [place] [facility] [address] [id number] [place] [address]- 7062 Jul, 2013 [facility] [place] [facility] [address] [id number] [place] [address]- 4867 Jul, 2013 [facility] [place] [facility] [address] [id number] [place] [address]- 1086 Jul, 2013 [facility] [place] [facility] [address] [id number] [place] [address]- 9456 Jul, 2013 [facility] [place] [facility] [address] [id number] [place] [address]- 2735 Jul, 2013 [facility] [place] [facility] [address] [id number] [place] [address]- 7843 May, [facility] [place] [facility] [address] [id number] [place] [address]- 2543 May, [facility] [place] [facility] [address] [id number] [place] [address]- 6707 Apr, [facility] [place] [facility] [address] [id number] [place] [address]- 4116 Apr, [facility] [place] [facility] [address] [id number] [place] [address]- 4479 Apr, [facility] [place] [facility] [address] [id number] [place] [address]- 7746 Apr, [facility] [place] [facility] [address] [id number] [place] [address]- 3470 March, [facility] [place] [facility] [address] [id number] [place] [address]- 7532 March, [facility] [place] [facility] [address] [id number] [place] [address]- 0986 Jan, [facility] [place] [facility] [address] [id number] [place] [address]- 6562 Jan, [facility] [place] [facility] [address] [id number] [place] [address]- 0141 Jan, [facility] [place] [facility] [address] [id number] [place] [address]- 8013 Jan, [facility] [place] [facility] [address] [id number] [place] [address]- 0162 Dec, [facility] [place] [facility] [address] [id number] [place] [address]- 6708 Dec, [facility] [place] [facility] [address] [id number] [place] [address]- 0050 18 Dec, 2013 [facility] [place] [facility] [address] [id number] [place] [address]- 1283 18 Dec, 2013 [facility] [place] [facility] [address] [id number] [place] [address]- 6755 15 Dec, 2013 [facility] [place] [facility] [address] [id number] [place] [address]- 1733 14 Dec, 2013 [facility] [place] [facility] [address] [id number] [place] [address]- 1967 13 Dec, 2013 [facility] [place] [facility] [address] [id number] [place] [address]- 7326 13 Dec, 2013 [facility] [place] [facility] [address] [id number] [place] 3497 12 Dec, 2013 [facility] [place] [facility] [address] [id number] [place] [address]- 2187 Dec, [facility] [place] [facility] [address] [id number] [place] [address]- 0809 Dec, [facility] [place] [facility] [address] [id number] [place] [address]- 4018 Dec, [facility] [place] [facility] [address] [id number] [place] [address]- 2690 Dec, [facility] [place] [facility] [address] [id number] [place] [address]- 5649 Dec, [facility] [place] [facility] [address] [id number] [place] [address]- 3129 Dec, [facility] [place] [facility] [address] [id number] [place] [address]- 6680 Dec, [facility] [place] [facility] [address] [id number] [place] [address]- 6547 Dec, [facility] [place] [facility] [address] [id number] [place] [address]- 9989 Dec, [facility] [place] [facility] [address] [id number] [place] [address]- 1343 Nov, [facility] [place] [facility] [address] [id number] [place] [address]- 9748 Nov, [facility] [place] [facility] [address] [id number] [place] [address]- 4198 Nov, [facility] [place] [facility] [address] [id number] [place] [address]- 6397 Nov, [facility] [place] [facility] [address] [id number] [place] [address]- 3293 Nov, [facility] [place] [facility] [address] [id number] [place] [address]- 2202 Nov, [facility] [place] [facility] [address] [id number] [address]- 7932 Nov, [facility] [place] [facility] [address] [id number] [place] [address]- 2836 Nov, [facility] [place] [facility] [address] [id number] [place] [address]- 1532 Oct, [facility] [place] [facility] [address] [id number] [place] [address]- 9707 Oct, [facility] [place] [facility] [address] [id number] [place] [address]- 6866 Oct, [facility] [place] [facility] [address] [id number] [place] [address]- 7018 Oct, [facility] [place] [facility] [address] [id number] [place] [address]- 2477 Oct, [facility] [place] [facility] [address] [id number] [place] [address]- 6869 Oct, [facility] [place] [facility] [address] [id number] [place] [address]- 3794 Sep, [facility] [place] [facility] [address] [id number] [place] [address]- 5138 Sep, [facility] [place] [facility] [address] [id number] [place] [address]- 5255 Sep, [facility] [place] [facility] [address] [id number] [place] [address]- 0389 Sep, [facility] [place] [facility] [address] [id number] [place] [address]- 2122 Aug, [facility] [place] [facility] [address] [id number] [place] [address]- 5148 Aug, [facility] [place] [facility] [address] [id number] [place] [address]- 2927 Aug, [facility] [place] [facility] [address] [id number] [place] [address]- 0584 Aug, [facility] [place] [facility] [address] [id number] [place] [address]- 4966 Jul, [facility] [address] [id number] [place] [address]- 9280 Jul, [facility] [place] [facility] [address] [id number] [place] [address]- 2858 Jun, [facility] [place] [facility] [address] [id number] [place] [address] 2546 Jun, [facility] [place] [facility] [address] [id number] [place] [address]- 8318 Apr, [facility] [place] [facility] [address] [id number] [place] [address]- 5951 Apr, [facility] [place] [facility] [address] [id number] [place] [address]- 5053 Apr, [facility] [place] [facility] [address] [id number] [place] [address]- 0747 Apr, [facility] [place] [facility] [address] [id number] [place] [address]- 6418 March, [facility] [address] [id number] [place] [address]- 4200 March, [facility] [place] [facility] [address] [id number] [place] [address]- 6859 March, [facility] [place] [facility] [address] [id number] [place] [address]- 7070 Jan, [facility] [place] [facility] [address] [id number] [place] [address]- 3316 Jan, [facility] [place] [facility] [address] [id number] [place] [address]- 2205 Dec, [facility] [place] [facility] [address] [id number] [place] [address] Dec, [facility] [place] [facility] [address] [id number] [place] [address] Dec, [facility] [place] [facility] [address] [id number] [place] [address] 28 Dec, 2012 [facility] [address] [id number] [place] [address] Dec, [facility] [address] [id number] [place] [address] Dec, [facility] [address] [id number] [place] [address] Nov, [facility] [address] [id number] [place] [address] Nov, [facility] [address] [id number] [place] [address] Oct, [facility] [address] [id number] [place] [address] Oct, [facility] [address] [id number] [place] [address] Oct, [facility] [address] [id number] [place] [address] Oct, [facility] [address] [id number] [place] [address] Oct, [facility] [address] [id number] [place] [address] Oct, [facility] [address] [id number] [place] [address] Oct, [facility] [address] [id number] [place] [address] Oct, [facility] [address] [id number] [place] [address] Oct, [facility] [address] [id number] [place] [address] Oct, [facility] [address] [id number] [place] [address] Sep, [facility] [place] [facility] [address] [id number] [place] [address] Sep, [facility] [place] [facility] [address] [id number] [place] [address] Sep, [facility] [facility] [address] [id number] [place] [address] Sep, [facility] [place] [facility] [address] [id number] [place] [address] Aug, [facility] [facility] [address] [id number] [place] [address] Aug, [facility] [facility] [address] [id number] [place] [address] Aug, [facility] [facility] [address] [facility] [id number] [place] [address] Jul, [facility] [facility] [address] [id number] [place] [address] Jun, [facility] [facility] [address] [id number] [place] [address] Jun, [facility] [facility] [address] [facility] [id number] [place] [address] May, [facility] [address] [id number] [place] [address] Apr, [facility] [address] [address] [id number] [place] [address] March, [facility] [place] [facility] [address] [id number] [place] [address] Jan, [facility] [place] [facility] [address] [id number] [place] [address] Dec, [facility] [place] [facility] [address] [facility] [id number] [place] [address] Dec, [facility] [place] [facility] [address] [id number] [place] [address] Nov, [facility] [address] [id number] [place] [address] Oct, [facility] [place] [facility] [address] [id number] [place] [address] Oct, [facility] [place] [facility] [address] [id number] [place] [address] Sep, [facility] [place] [facility] [address] [id number] [place] [address] Aug, [facility] [place] [facility] [address] [id number] [place] [address] Dec, [facility] [place] [facility] [address] [id number] [place] [address] Oct, [facility] [place] [facility] [address] [id number] [place] [address] Oct, [facility] [place] [facility] [address] [id number] [place] [address] Oct, [facility] [place] [facility] [address] [id number] [place] [address] Jun, [facility] [place] [facility] [address] [id number] [place] [address] Jun, [facility] [place] [facility] [address] [id number] [place] [address] Oct, [facility] [place] [facility] [address] [id number] [place] [address] Sep, [facility] [place] [facility] [address] [id number] [place] [address] Sep, [facility] [place] [facility] [address] [id number] [place] [address] Sep, [facility] [place] [facility] [address] [id number] [place] [address] Aug, [facility] [address] [facility] [id number] [place] [address] Dec, IMMUNIZATIONS No Known Immunizations SOCIAL HISTORY Never Assessed REASON FOR VISIT Follow-up Depression/Anxiety PLAN OF CARE Activity Details Follow Up 1 Week Reason: Follow-up VITAL SIGNS MEDICATIONS Unknown Medications RESULTS No Results PROCEDURES Procedure Date Ordered Result Body Site Psychotherapy, patient &/family, 30 minutes, established patient January 28, 2018 INSTRUCTIONS MEDICATIONS ADMINISTERED No Known Medications MEDICAL (GENERAL) HISTORY Type Description Date Medical History GERD Medical History anxiety Medical History depression Surgical History C- section x 2 Surgical History tubal ligation Surgical History hysterectomy 2008 Surgical History cholecystectomy 2013 Surgical History Fibroid removal Hospitalization History inpatient treatment Mirtha SMITH 21 years old Hospitalization History surgeries
--- OUTSIDE RECORDS SUMMARY | 2019-01-13 21:57 | XMS REPORT ---
Author Author PADMINI LUJAN [facility] Address [address] [place] [address] Care Team Providers Care Cpa Tax Name Role Phone PADMINI LUJAN Unavailable PROBLEMS Type Condition ICD9-CM Code [id number] Code Onset Dates Condition Status SNOMED Code Problem BMI 35.0-35.9,adult Z68.35 Active 799099665 Problem Tobacco use Z72.0 Active 243174156 Problem Chronic fatigue R53.82 Active 32679510 Problem Prediabetes R73.03 Active 473655170 Problem Chronic reflux esophagitis K21.0 Active 136081755 Problem Carpal tunnel syndrome of right wrist G56.01 Active 54118155 Problem PTSD (post-traumatic stress disorder) F43.10 Active 19792222 Problem 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 14398786 Problem Elevated lymphocytes D72.820 Active 65235488 Problem WILMA (generalized anxiety disorder) F41.1 Active 97811941 Problem Severe episode of recurrent major depressive disorder, without psychotic features F33.2 Active 24586634 ALLERGIES No Information ENCOUNTERS Encounter Location Date Diagnosis [facility] [id number] [place] [address] 24273- 7237 Jun, [facility] [id number] [place] [address] 47323- 0223 Jun, [facility] [id number] [place] [address] 56474- 0515 May, [facility] [address] 67696- 1386 May, [facility] [id number] [place] [address] 95691- 9217 Apr, Severe episode of recurrent major depressive disorder, without psychotic features F33.2 ; WILMA (generalized anxiety disorder) F41.1 and PTSD (post-traumatic stress disorder) F43.10 [address] [address] [address] March, Severe episode of recurrent major depressive disorder, without psychotic features F33.2 ; WILMA (generalized anxiety disorder) F41.1 and PTSD (post-traumatic stress disorder) F43.10 [place] [address] [address] March, Severe episode of recurrent major depressive disorder, without psychotic features F33.2 ; WILMA (generalized anxiety disorder) F41.1 and PTSD (post-traumatic stress disorder) F43.10 [place] [id number] [place] [address] 99532- 3146 March, [place] [id number] [place] [address] 78005- 0285 Jan, Severe episode of recurrent major depressive disorder, without psychotic features F33.2 ; WILMA (generalized anxiety disorder) F41.1 and PTSD (post-traumatic stress disorder) F43.10 [place] [address] [address] 17[address] Jan, Carpal tunnel syndrome of right wrist G56.01 [place] [address], [place] [address] 3765 Jan, Severe episode of recurrent major depressive disorder, without psychotic features F33.2 ; WILMA (generalized anxiety disorder) F41.1 and PTSD (post-traumatic stress disorder) F43.10 [place] [address], [place] [address]293 Dec, Severe episode of recurrent major depressive disorder, without psychotic features F33.2 ; WILMA (generalized anxiety disorder) F41.1 and PTSD (post-traumatic stress disorder) F43.10 [place] [address] [address]- 2121 Dec, Severe episode of recurrent major depressive disorder, without psychotic features F33.2 ; WILMA (generalized anxiety disorder) F41.1 and PTSD (post-traumatic stress disorder) F43.10 [place] [address] [address]- 7814 Dec, Severe episode of recurrent major depressive disorder, without psychotic features F33.2 ; WILMA (generalized anxiety disorder) F41.1 and PTSD (post-traumatic stress disorder) F43.10 [place] [id number] [place] [address] 67793- 3446 Dec, Severe episode of recurrent major depressive disorder, without psychotic features F33.2 [place] [id number] [place] [address] 70675- 8500 Dec, Severe episode of recurrent major depressive disorder, without psychotic features F33.2 ; WILMA (generalized anxiety disorder) F41.1 and PTSD (post-traumatic stress disorder) F43.10 [place] [id number] [place] [address] 40262- 9666 Dec, Severe episode of recurrent major depressive disorder, without psychotic features F33.2 ; WILMA (generalized anxiety disorder) F41.1 and PTSD (post-traumatic stress disorder) F43.10 [place] [id number] [place] [address] 65977- 2463 Dec, Severe episode of recurrent major depressive disorder, without psychotic features F33.2 and Anxiety state, unspecified F41.1 [place] [id number] [place] [address] 06298- 2160 Dec, Severe episode of recurrent major depressive disorder, without psychotic features F33.2 and Anxiety state, unspecified F41.1 [place] [address] [address]- 3516 Nov, Depression, major, recurrent, moderate F33.1 and Anxiety state, unspecified F41.1 [place] [address], [place] [address]- 4751 Nov, Depression, major, recurrent, moderate F33.1 and Anxiety state, unspecified F41.1 [place] [id number] [place] [address] Oct, Depression, major, recurrent, moderate F33.1 and Anxiety state, unspecified F41.1 [place] [id number] [place] [address] [address]83 Oct, Depression, major, recurrent, moderate F33.1 and Post- cholecystectomy syndrome K91.5 [place] [address] [place] [address]362- 0503 Oct, Depression, major, recurrent, moderate F33.1 and Anxiety state, unspecified F41.1 [place] [address] 636 Sep, Depression, major, recurrent, moderate F33.1 and Anxiety state, unspecified F41.[address] 285439- 3481 Sep, Depression, major, recurrent, moderate F33.1 and Anxiety state, unspecified F41.1 [place] [id number] [place] [address] Sep, Depression, major, recurrent, moderate F33.1 and Anxiety state, unspecified F41.1 [place] [id number] [place] [address] Sep, Diarrhea, unspecified type R19.7 [place] [id number] [place] 6748 Aug, Depression, major, recurrent, moderate F33.1 and Anxiety state, unspecified F41.1 [place] [address]- 9350 Aug, Depression, major, recurrent, moderate F33.1 and Anxiety state, unspecified F41.1 [place] [id number] [place] [address] Jul, Depression, major, recurrent, moderate F33.1 and Anxiety state, unspecified F41.1 [place] [id number] [place] [address] 97868- 4511 Jun, Depression, major, recurrent, moderate F33.1 and Anxiety state, unspecified F41.1 [place] [id number] [place] [address] 01331- 9059 Jun, Generalized abdominal pain R10.84 ; Diarrhea, unspecified type R19.7 ; Acute cystitis without hematuria N30.00 ; Abdominal bloating R14.0 and Elevated blood pressure reading R03.0 [place] [id number] [place] [address] 58608- 9330 Jun, Depression, major, recurrent, moderate F33.1 and Anxiety state, unspecified F41.1 [place] [id number] [place] [address] 65313- 1299 May, Depression, major, recurrent, moderate F33.1 and Anxiety state, unspecified F41.1 [place] [id number] [place] [address] 34810- 8955 May, Elevated lymphocytes D72.820 [place] [id number] [place] [address] 85438- 3507 May, Elevated lymphocytes D72.820 [place] [id number] [place] [address] 95424- 4065 May, BMI 35.0-35.9,adult Z68.35 ; Other fatigue R53.83 ; Pelvic pain R10.2 ; Tobacco use Z72.0 and Chronic reflux esophagitis K21.0 [place] [id number] [place] [address] 56203- 5095 Apr, [place] [id number] [place] [address] 6147 Apr, Depression, major, recurrent, moderate F33.1 and Anxiety state, unspecified F41.1 [place] [address] [place] [address]- 8321 14 Apr, 2017 Depression, major, recurrent, moderate F33.1 and Anxiety state, unspecified F41.1 [place] [id number] [place] [address] 09952- 0473 Apr, [place] [id number] [place] [address] 83212- 2513 March, Major depressive disorder, recurrent episode, mild F33.0 and Anxiety state, unspecified F41.1 [facility] [id number] [place] [address] 99637 -9244 March, Sore throat J02.9 and Submandibular lymphadenopathy R59.0 [place] [id number] [place] [address] 23144- 9600 Dec, Major depressive disorder, recurrent episode, mild F33.0 and Anxiety state, unspecified F41.1 [place] [id number] [place] [address] 76685- 1184 Dec, Major depressive disorder, recurrent episode, mild F33.0 and Anxiety state, unspecified F41.1 [place] [id number] [place] [address] 79089- 7956 Dec, Major depressive disorder, recurrent episode, mild F33.0 and Anxiety state, unspecified F41.1 [place] [id number] [place] [address] 12313- 1498 Sep, Major depressive disorder, recurrent episode, mild F33.0 and Anxiety state, unspecified F41.1 [place] [id number] [place] [address] 55911- 0726 Sep, Major depressive disorder, recurrent episode, moderate F33.1 and Anxiety state, unspecified F41.1 [place] [address] [place] [address] 66147- 4474 Aug, Major depressive disorder, recurrent episode, moderate F33.1 and Anxiety state, unspecified F41.1 [place] [address], [place] [address]- 0397 Aug, Major depressive disorder, recurrent episode, moderate F33.1 and Anxiety state, unspecified F41.1 [place] [address], [place] [address]- 0033 Jul, Major depressive disorder, recurrent episode, moderate F33.1 and Anxiety state, unspecified F41.1 [place] [id number] [place] [address] 06915- 0546 Jul, Major depressive disorder, recurrent episode, moderate F33.1 and Anxiety state, unspecified F41.1 [place] [id number] [place] [address] 05624- 2724 Jun, Major depressive disorder, recurrent episode, moderate F33.1 and Anxiety state, unspecified F41.1 [place] [id number] [place] [address] 53090- 9189 Jun, Major depressive disorder, recurrent episode, moderate F33.1 and Anxiety state, unspecified F41.1 [place] [id number] [place] [address] 77258- 0762 May, Major depressive disorder, recurrent episode, moderate F33.1 and Anxiety state, unspecified F41.1 [place] [address], [place] [address]- 3935 Apr, Major depressive disorder, recurrent episode, moderate F33.1 and Anxiety state, unspecified F41.1 [place] [address], [place] [address]- 4009 Apr, Major depressive disorder, recurrent episode, moderate F33.1 and Anxiety state, unspecified F41.1 [place] [address], [place] [address]- 0435 Dec, Major depressive disorder, recurrent episode, moderate F33.1 and Anxiety state, unspecified F41.1 [place] [id number] [address]- 9973 Dec, Major depressive disorder, recurrent episode, moderate F33.1 and Anxiety state, unspecified F41.1 [facility] [id number] [place] [address] 75482 -1020 Dec, Pharyngitis J02.9 and Acute frontal sinusitis J01.10 [facility] [id number] [place] [address] 85258- 6294 Nov, Bilateral occipital neuralgia M54.81 and Neck muscle spasm M62.838 [place] [id number] [place] [address] 99762- 1184 Nov, Major depressive disorder, recurrent episode, moderate F33.1 and Anxiety state, unspecified F41.1 [place] [id number] [place] [address] 83288- 7266 Sep, Major depressive disorder, recurrent episode, moderate F33.1 and Anxiety state, unspecified F41.1 [place] [id number] [place] [address] 78533- 0267 Aug, Major depressive disorder, recurrent episode, moderate F33.1 and Anxiety state, unspecified F41.1 [place] [id number] [place] [address] 73764- 4191 Jul, Abdominal pain 789.00 ; Hematochezia 578.1 and Weight loss 783.21 [place] [id number] [place] [address] 39313- 5523 May, [place] [id number] [place] [address] 12353- 0602 March, [place] [id number] [place] [address] 82499- 6173 March, [place] [id number] [place] [address] 02551- 0510 Jan, [place] [id number] [place] [address] [place] [address]- 7829 13 Jan, 2014 [facility] [place] [facility] [address] [id number] [place] [address]- 2846 Dec, 2014 [facility] [place] [facility] [address] [id number] [place] [address]- 1406 Dec, 2014 [facility] [place] [facility] [address] [id number] [place] [address]- 2546 Dec, 2014 [facility] [place] [facility] [address] [id number] [place] [address]- 2549 Dec, 2014 [facility] [place] [facility] [address] [id number] [place] [address]- 9404 Dec, 2014 [facility] [place] [facility] [address] [id number] [place] [address]- 9241 Dec, 2014 [facility] [place] [facility] [address] [id number] [place] [address]- 2544 Jul, 2013 [facility] [place] [facility] [address] [id number] [place] [address]- 2542 25 Jul, 2013 [facility] [place] [facility] [address] [id number] [place] [address]- 2545 Jul, 2013 [facility] [place] [facility] [address] [id number] [place] [address]- 2544 11 Jul, 2013 [facility] [place] [facility] [address] [id number] [place] [address] 2546 10 Jul, 2013 [facility] [place] [facility] [address] [id number] [place] [address]- 2546 10 Jul, 2013 [facility] [place] [facility] [address] [id number] [place] [address] 2543 09 Jul, 2013 [facility] [place] [facility] [address] [id number] [place] [address]- 2546 09 Jul, 2013 [facility] [place] [facility] [address] [id number] [place] [address]- 7178 Jul, [facility] [place] [facility] [address] [id number] [place] [address]- 7453 Jul, [facility] [place] [facility] [address] [id number] [place] [address]- 9736 Jul, [facility] [place] [facility] [address] [id number] [place] [address]- 7563 Jul, [facility] [place] [facility] [address] [id number] [place] [address]- 2262 May, [facility] [place] [facility] [address] [id number] [place] [address]- 0783 May, [facility] [place] [facility] [address] [id number] [place] [address]- 2916 Apr, [facility] [place] [facility] [address] [id number] [place] [address]- 5925 Apr, [facility] [place] [facility] [address] [id number] [place] [address]- 3314 Apr, [facility] [place] [facility] [address] [id number] [place] [address]- 5905 Apr, [facility] [place] [facility] [address] [id number] [place] [address]- 7020 March, [facility] [place] [facility] [address] [id number] [place] [address]- 6980 March, [facility] [place] [facility] [address] [id number] [address]- 5902 Jan, [facility] [place] [facility] [address] [id number] [place] [address]- 7644 Jan, [facility] [place] [facility] [address] [id number] [place] [address]- 7315 Jan, [facility] [place] [facility] [address] [id number], [place] [address]- 2261 Jan, [facility] [place] [facility] [address] [id number], [place] [address]- 7835 25 Dec, 2013 [facility] [place] [facility] [address] [id number] [place] [address]- 5537 25 Dec, 2013 [facility] [place] [facility] [address] [id number] [place] [address]- 5085 18 Dec, 2013 [facility] [place] [facility] [address] [id number] [place] [address]- 7318 18 Dec, 2013 [facility] [place] [facility] [address] [id number] [place] [address]- 3585 15 Dec, 2013 [facility] [place] [facility] [address] [id number] [place] [address]- 3681 14 Dec, 2013 [facility] [place] [facility] [address] [id number] [place] [address]- 5205 13 Dec, 2013 [facility] [place] [facility] [address] [id number] [place] [address]- 3725 13 Dec, 2013 [facility] [place] [facility] [address] [id number] [place] [address]- 5684 12 Dec, 2013 [facility] [place] [facility] [address] [id number] [place] [address]- 0731 12 Dec, 2013 [facility] [place] [facility] [address] [id number] [place] [address]- 0301 05 Dec, 2013 [facility] [place] [facility] [address] [id number] [place] [address]- 8488 05 Dec, 2013 [facility] [place] [facility] [address] [id number] [place] [address]- 3955 Dec, [facility] [place] [facility] [address] [id number] [place] [address]- 0485 Dec, [facility] [place] [facility] [address] [id number] [place] [address]- 9153 Dec, [facility] [place] [facility] [address] [id number] [place] [address]- 5931 Dec, [facility] [place] [facility] [address] [id number] [place] [address]- 4676 Dec, [facility] [place] [facility] [address] [id number] [place] [address]- 9067 Dec, [facility] [place] [facility] [address] [id number] [place] [address]- 4607 Nov, [facility] [place] [facility] [address] [id number] [place] [address]- 0610 Nov, [facility] [place] [facility] [address] [id number] [place] [address]- 1540 Nov, [facility] [place] [facility] [address] [id number] [place] [address]- 0320 Nov, [facility] [place] [facility] [address] [id number] [place] [address]- 9480 Nov, [facility] [place] [facility] [address] [id number] [place] [address]- 7710 Nov, [facility] [place] [facility] [address] [id number] [place] [address]- 0559 Nov, [facility] [place] [facility] [address] [id number] [place] [address]- 6680 Nov, [facility] [place] [facility] [address] [id number] [place] [address]- 9813 Oct, [facility] [place] [facility] [address] [id number] [place] [address]- 8043 Oct, [facility] [place] [facility] [address] [id number] [place] [address]- 4114 Oct, [facility] [place] [facility] [address] [id number] [place] [address]- 1384 Oct, [facility] [place] [facility] [address] [id number] [place] [address]- 5885 Oct, [facility] [place] [facility] [address] [id number], [place] [address]- 8316 Oct, [facility] [place] [facility] [address] [id number] [place] [address]- 7838 Sep, [facility] [place] [facility] [address] [id number] [place] [address]- 8876 Sep, [facility] [place] [facility] [address] [facility] [id number] [place] [address] 2546 Sep, [facility] [place] [facility] [address] [id number], [place] [address]- 0707 Sep, [facility] [place] [facility] [address] [id number] [place] [address]- 6616 Aug, [facility] [place] [facility] [address] [id number] [place] [address]- 4157 Aug, [facility] [place] [facility] [address] [id number] [place] [address]- 3909 Aug, [facility] [place] [facility] [address] [id number], [place] [address]- 0724 Aug, [facility] [place] [facility] [address] [id number], [place] [address]- 1418 Jul, [facility] [place] [facility] [address] [id number] [place] [address]- 3952 Jul, [facility] [place] [facility] [address] [id number], [place] [address]- 3663 Jun, [facility] [place] [facility] [address] [id number], [place] [address] 2545 Jun, [facility] [place] [facility] [address] [id number] [place] [address]- 0876 Apr, [facility] [place] [facility] [address] [id number], [place] [address]- 2452 Apr, [facility] [place] [facility] [address] [id number], [place] [address]- 2548 Apr, [facility] [place] [facility] [address] [id number] [place] [address]- 4175 14 Apr, 2013 [facility] [address] [id number] [place] [address]- 5027 March, [facility] [address] [id number] [place] [address]- 2546 March, [facility] [address] [id number] [place] [address] March, [facility] [address] [id number] [place] [address] Jan, [facility] [address] [id number] [place] [address] Jan, [facility] [address] [id number] [place] [address] Dec, [facility] [address] [id number] [place] [address] Dec, [facility] [address] [id number] [place] [address] Dec, [facility] [address] [id number] [place] [address] Dec, [facility] [address] [id number] [place] [address] Dec, [facility] [address] [id number] [place] [address] Dec, [facility] [address] [id number] [place] [address] Nov, [facility] [address] [id number] [place] [address] Nov, [facility] [address] [id number] [place] [address] Oct, [facility] [address] [id number] [place] [address] Oct, [facility] [place] [facility] [address] [id number] [place] [address] Oct, [facility] [place] [facility] [address] [id number] [place] [address] Oct, [facility] [place] [facility] [address] [id number] [place] [address] Oct, [facility] [place] [facility] [address] [id number] [place] [address] Oct, [facility] [place] [facility] [address] [id number] [place] [address] Oct, [facility] [place] [facility] [address] [id number] [place] [address] Oct, [facility] [place] [facility] [address] [facility] [id number] [place] [address] Oct, [facility] [place] [facility] [address] [id number], [place] [address] Oct, [facility] [place] [facility] [address] [id number] [place] [address] Sep, [facility] [place] [facility] [address] [id number], [place] [address] Sep, [facility] [place] [facility] [address] [id number], [place] [address] Sep, [facility] [place] [facility] [address] [id number], [place] [address] Sep, [facility] [place] [facility] [address] [id number] [place] [address] Aug, [facility] [place] [facility] [address] [id number], [place] [address] Aug, [facility] [place] [facility] [address] [facility] [id number] [address] Aug, [facility] [place] [facility] [address] [id number] [place] [address] 13 Jul, 2012 [facility] [address] [id number] [place] [address] 30 Jun, 2012 [facility] [place] [facility] [address] [id number] [place] [address] 16 Jun, 2012 [facility] [place] [facility] [address] [id number] [place] [address] May, [facility] [place] [facility] [address] [id number] [place] [address] Apr, [facility] [place] [facility] [address] [id number] [place] [address] March, [facility] [place] [facility] [address] [id number] [place] [address] Jan, [facility] [place] [facility] [address] [id number] [place] [address] 29 Dec, 2011 [facility] [place] [facility] [address] [id number] [place] [address] Dec, [facility] [place] [facility] [address] [id number] [place] [address] Nov, [facility] [place] [facility] [address] [id number] [place] [address] Oct, [facility] [place] [facility] [address] [id number] [place] [address] 08 Oct, 2011 [facility] [place] [facility] [address] [id number] [place] [address] Sep, [facility] [place] [facility] [address] [id number] [place] [address] Aug, [facility] [place] [facility] [address] [id number] [place] [address] 17 Dec, 2010 [facility] [place] [facility] [address] [id number] [place] [address] Oct, [facility] [address] [facility] [id number] [address] Oct, [facility] [address] [facility] [id number], [place] [address] Oct, [facility] [address] [facility] [id number], [place] [address] Jun, [facility] [address] [facility] [id number], [place] [address] Jun, [facility] [address] [facility] [id number], [place] [address] Oct, [facility] [address] [facility] [id number], [place] [address] Sep, [facility] [id number], [place] [address] Sep, [facility] [id number], [place] [address] Sep, [facility] [address] [id number], [place] [address] Aug, [facility] [address] [id number], [place] [address] Dec, IMMUNIZATIONS No Known Immunizations SOCIAL HISTORY Never Assessed REASON FOR VISIT Follow-up Depression/Anxiety PLAN OF CARE Activity Details Follow Up 2 Weeks Reason: Follow-up VITAL SIGNS MEDICATIONS Unknown Medications RESULTS No Results PROCEDURES Procedure Date Ordered Result Body Site Psychotherapy, patient &/family, 45 minutes, established patient January 14, 2018 INSTRUCTIONS MEDICATIONS ADMINISTERED No Known Medications MEDICAL (GENERAL) HISTORY Type Description Date Medical History GERD Medical History anxiety Medical History depression Surgical History C- section x 2 Surgical History tubal ligation Surgical History hysterectomy 2009 Surgical History cholecystectomy 2013 Surgical History Fibroid removal Hospitalization History inpatient treatment Mirtha SMITH 21 years old Hospitalization History surgeries
--- OUTSIDE RECORDS SUMMARY | 2019-01-13 21:58 | XMS REPORT ---
Author Author MAURICIO PJ Organization [facility] Address [address] [place] [address] Care Team Providers Care Reinforcement Maker Name Role Phone INGRISPJ LEÓN Unavailable PROBLEMS Type Condition ICD9-CM Code XJV00-WC Code Onset Dates Condition Status SNOMED Code Problem BMI 35.0-35.9,adult Z68.35 Active 702646478 Problem Tobacco use Z72.0 Active 927042209 Problem Chronic fatigue R53.82 Active 49971636 Problem Prediabetes R73.03 Active 044762847 Problem Chronic reflux esophagitis K21.0 Active 386418198 Problem Carpal tunnel syndrome of right wrist G56.01 Active 42763754 Problem PTSD (post-traumatic stress disorder) F43.10 Active 36075441 Problem 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 [address] [facility] [id number] [address] Jun, [facility] [id number], [place] [address] Jun, [facility] [id number] [address] Apr, Severe episode of recurrent major depressive disorder, without psychotic features F33.2 ; WILMA (generalized anxiety disorder) F41.1 and PTSD (post-traumatic stress disorder) F43.10 [place] [address] [address] March, Severe episode of recurrent major depressive disorder, without psychotic features F33.2 ; WILMA (generalized anxiety disorder) F41.1 and PTSD (post-traumatic stress disorder) F43.10 [place] [address], [place] [address] March, Severe episode of recurrent major depressive disorder, without psychotic features F33.2 ; WILMA (generalized anxiety disorder) F41.1 and PTSD (post-traumatic stress disorder) F43.10 [place] [id number] [place] [address] 22892- 8361 March, [place] [address] [place] [id number] [place] [address] 19309- 5165 Jan, Severe episode of recurrent major depressive disorder, without psychotic features F33.2 ; WILMA (generalized anxiety disorder) F41.1 and PTSD (post-traumatic stress disorder) F43.10 [place] [address] [address] Jan, Carpal tunnel syndrome of right wrist G56.01 [place] [address], [place] [address] 6[address] Jan, Severe episode of recurrent major depressive disorder, without psychotic features F33.2 ; WILMA (generalized anxiety disorder) F41.1 and PTSD (post-traumatic stress disorder) F43.10 [place] [address] [address] Dec, Severe episode of recurrent major depressive disorder, without psychotic features F33.2 ; WILMA (generalized anxiety disorder) F41.1 and PTSD (post-traumatic stress disorder) F43.10 [place] [address] [address] Dec, Severe episode of recurrent major depressive disorder, without psychotic features F33.2 ; WILMA (generalized anxiety disorder) F41.1 and PTSD (post-traumatic stress disorder) F43.10 [place] [address], [place] [address] 6[address] Dec, Severe episode of recurrent major depressive disorder, without psychotic features F33.2 ; WILMA (generalized anxiety disorder) F41.1 and PTSD (post-traumatic stress disorder) F43.10 [place] [address] [address] Dec, Severe episode of recurrent major depressive disorder, without psychotic features F33.2 [place] [address] [place] [address] [id number] [place] [address] 61492- 3696 Dec, Severe episode of recurrent major depressive disorder, without psychotic features F33.2 ; WILMA (generalized anxiety disorder) F41.1 and PTSD (post-traumatic stress disorder) F43.10 [place] [address] [place] [address] 35309- 6429 Dec, Severe episode of recurrent major depressive disorder, without psychotic features F33.2 ; WILMA (generalized anxiety disorder) F41.1 and PTSD (post-traumatic stress disorder) F43.10 [place] [address] [place] [address] 54869- 8778 Dec, Severe episode of recurrent major depressive disorder, without psychotic features F33.2 and Anxiety state, unspecified F41.1 [place] [address] [address]- 6784 Dec, Severe episode of recurrent major depressive disorder, without psychotic features F33.2 and Anxiety state, unspecified F41.1 [place] [address], [place] [address]- 7408 Nov, Depression, major, recurrent, moderate F33.1 and Anxiety state, unspecified F41.1 [place] [address], [place] [address]- 7829 Nov, Depression, major, recurrent, moderate F33.1 and Anxiety state, unspecified F41.1 [place] [address] [place] [id number] [place] [address] 83377- 2617 Oct, Depression, major, recurrent, moderate F33.1 and Anxiety state, unspecified F41.1 [place] [address] [place] [id number] [place] [address] Oct, Depression, major, recurrent, moderate F33.1 and Post- cholecystectomy syndrome K91.5 [place] [address] [place] [id number] [place] [address] 92366- 2180 Oct, Depression, major, recurrent, moderate F33.1 and Anxiety state, unspecified F41.1 [place] [address] [place] [id number] [place] [address] Sep, Depression, major, recurrent, moderate F33.1 and Anxiety state, unspecified F41.1 [place] [address] [place] [id number] [place] [address] 45149- 9121 Sep, Depression, major, recurrent, moderate F33.1 and Anxiety state, unspecified F41.1 [place] [address] [place] [id number] [place] [address] 14227- 3580 Sep, Depression, major, recurrent, moderate F33.1 and Anxiety state, unspecified F41.1 [place] [address] [place] [address] [id number] [place] [address] 82108- 0313 Sep, Diarrhea, unspecified type R19.7 [place] [address] [place] [address] [id number] [place] [address] 45253- 0325 Aug, Depression, major, recurrent, moderate F33.1 and Anxiety state, unspecified F41.1 [place] [id number] [place] [address] 860638- 5228 Aug, Depression, major, recurrent, moderate F33.1 and Anxiety state, unspecified F41.1 [place] [address] [place] [address] [id number] [place] [address] 51208- 4737 Jul, Depression, major, recurrent, moderate F33.1 and Anxiety state, unspecified F41.1 [place] [address] [place] [address] [id number] [place] [address] 45087- 0529 Jun, Depression, major, recurrent, moderate F33.1 and Anxiety state, unspecified F41.1 [place] [address] [place] [address] [id number] [place] [address] 12600- 9468 Jun, Generalized abdominal pain R10.84 ; Diarrhea, unspecified type R19.7 ; Acute cystitis without hematuria N30.00 ; Abdominal bloating R14.0 and Elevated blood pressure reading R03.0 [place] [address] [place] [id number] [place] [address] 79005- 6604 Jun, Depression, major, recurrent, moderate F33.1 and Anxiety state, unspecified F41.1 [place] [address] [place] [id number] [place] [address] 89641- 8812 May, Depression, major, recurrent, moderate F33.1 and Anxiety state, unspecified F41.1 [place] [address] [place] [id number] [place] [address] 46022- 8434 May, Elevated lymphocytes D72.820 [place] [address] [place] [id number] [place] [address] 05738- 1066 May, Elevated lymphocytes D72.820 [place] [address] [place] [id number] [place] [address] 52391- 6212 May, BMI 35.0-35.9,adult Z68.35 ; Other fatigue R53.83 ; Pelvic pain R10.2 ; Tobacco use Z72.0 and Chronic reflux esophagitis K21.0 [place] [address] [place] [id number] [place] [address] 83539- 7277 Apr, [place] [address] [place] [id number]- 5477 Apr, Depression, major, recurrent, moderate F33.1 and Anxiety state, unspecified F41.1 [place] [address] [address]- 9758 14 Apr, 2017 Depression, major, recurrent, moderate F33.1 and Anxiety state, unspecified F41.1 [place] [address] [place] [address] 58272- 0364 Apr, [place] [address] [place] [address] 52203- 5171 March, Major depressive disorder, recurrent episode, mild F33.0 and Anxiety state, unspecified F41.1 [facility] [address], [place] [address] March, Sore throat J02.9 and Submandibular lymphadenopathy R59.0 [place] [address] [place] [address] 09539- 9193 Dec, Major depressive disorder, recurrent episode, mild F33.0 and Anxiety state, unspecified F41.1 [place] [address] [place] [address] 95392- 2787 Dec, Major depressive disorder, recurrent episode, mild F33.0 and Anxiety state, unspecified F41.1 [place] [address] [place] [address] 53959- 9797 Dec, Major depressive disorder, recurrent episode, mild F33.0 and Anxiety state, unspecified F41.1 [place] [address] [place] [address] 79056- 8945 Sep, Major depressive disorder, recurrent episode, mild F33.0 and Anxiety state, unspecified F41.1 [place] [address] [place] [address] 72493- 8458 Sep, Major depressive disorder, recurrent episode, moderate F33.1 and Anxiety state, unspecified F41.1 [place] [address], [place] [address]- 1927 Aug, Major depressive disorder, recurrent episode, moderate F33.1 and Anxiety state, unspecified F41.1 [place] [address], [place] [address]- 9708 Aug, Major depressive disorder, recurrent episode, moderate F33.1 and Anxiety state, unspecified F41.1 [place] [address] [place] [address] 20426- 0552 Jul, Major depressive disorder, recurrent episode, moderate F33.1 and Anxiety state, unspecified F41.1 [place] [address] [place] [id number] [place] [address] 58321- 5915 Jul, Major depressive disorder, recurrent episode, moderate F33.1 and Anxiety state, unspecified F41.1 [place] [address] [place] [id number] [place] [address] 62106- 7237 Jun, Major depressive disorder, recurrent episode, moderate F33.1 and Anxiety state, unspecified F41.1 [place] [address] [place] [id number] [place] [address] 34981- 1729 Jun, Major depressive disorder, recurrent episode, moderate F33.1 and Anxiety state, unspecified F41.1 [place] [address] [place] [address] 22181- 3443 May, Major depressive disorder, recurrent episode, moderate F33.1 and Anxiety state, unspecified F41.1 [place] [address] [place] [address] 76127- 3630 Apr, Major depressive disorder, recurrent episode, moderate F33.1 and Anxiety state, unspecified F41.1 [place] [address] [place] [address] 01131- 9607 Apr, Major depressive disorder, recurrent episode, moderate F33.1 and Anxiety state, unspecified F41.1 [place] [address] [place] [address] 54213- 1598 Dec, Major depressive disorder, recurrent episode, moderate F33.1 and Anxiety state, unspecified F41.1 [place] [address] [place] [id number] [place] [address] 68652- 5104 Dec, Major depressive disorder, recurrent episode, moderate F33.1 and Anxiety state, unspecified F41.1 [facility] [id number] [place] [address] 54745 -4040 Dec, Pharyngitis J02.9 and Acute frontal sinusitis J01.10 [facility] [address] [place] [id number] [place] [address] 95353- 3464 Nov, Bilateral occipital neuralgia M54.81 and Neck muscle spasm M62.838 [place] [address] [place] [id number] [place] [address] 03182- 3813 Nov, Major depressive disorder, recurrent episode, moderate F33.1 and Anxiety state, unspecified F41.1 [place] [address] [place] [id number] [place] [address] 06858- 0162 Sep, Major depressive disorder, recurrent episode, moderate F33.1 and Anxiety state, unspecified F41.1 [facility] [address] [place] [id number] [place] [address] 94610- 4939 Aug, Major depressive disorder, recurrent episode, moderate F33.1 and Anxiety state, unspecified F41.1 [place] [address] [place] [id number] [place] [address] 28809- 6475 Jul, Abdominal pain 789.00 ; Hematochezia 578.1 and Weight loss 783.21 [place] [address] [place] [id number] [place] [address] 37710- 2810 May, [place] [address] [place] [id number] [place] [address] 30924- 6743 March, [place] [address] 74441- 3349 March, [place] [address] [place] [id number] [place] [address] 48910- 2853 Jan, [place] [address] 13804- 8256 Jan, 2014 [facility] [place] [facility] [address] [id number] [place] [address]- 8317 Dec, 2014 [facility] [place] [facility] [address] [id number] [place] [address]- 2026 Dec, 2014 [facility] [place] [facility] [address] [facility] [id number] [place] [address]- 5056 Dec, 2014 [facility] [place] [facility] [address] [id number] [place] [address]- 0174 Dec, 2014 [facility] [place] [facility] [address] [id number] [place] [address]- 3215 Dec, 2014 [facility] [place] [facility] [address] [facility] [id number] [place] [address]- 6944 Dec, 2014 [facility] [place] [facility] [address] [facility] [id number] [place] [address]- 1994 Jul, 2013 [facility] [place] [facility] [address] [id number] [place] [address]- 2549 Jul, 2013 [facility] [place] [facility] [address] [facility] [id number] [place] [address]- 7959 Jul, 2013 [facility] [place] [facility] [address] [facility] [id number] [place] [address]- 2376 11 Jul, 2013 [facility] [place] [facility] [address] [facility] [id number] [place] [address]- 2543 10 Jul, 2013 [facility] [place] [facility] [address] [id number], [place] [address]- 2549 10 Jul, 2013 [facility] [place] [facility] [address] [id number] [place] [address]- 2545 09 Jul, 2013 [facility] [place] [facility] [address] [facility] [id number] [place] [address]- 2544 09 Jul, 2013 [facility] [place] [facility] [address] [facility] [id number], [place] [address]- 2540 09 Sep, 2013 [facility] [place] [facility] [address] [id number] [place] [address]- 2580 Jul, [facility] [place] [facility] [address] [id number] [place] [address]- 6316 Jul, [facility] [place] [facility] [address] [id number] [place] [address]- 9956 Jul, [facility] [place] [facility] [address] [id number] [place] [address]- 8539 May, [facility] [place] [facility] [address] [id number] [place] [address]- 5654 May, [facility] [place] [facility] [address] [id number] [place] [address]- 8767 Apr, [facility] [place] [facility] [address] [id number] [place] [address]- 7794 Apr, [facility] [place] [facility] [address] [id number] [place] [address]- 2232 Apr, [facility] [place] [facility] [address] [id number] [place] [address]- 7355 Apr, [facility] [place] [facility] [address] [id number] [place] [address]- 4924 March, [facility] [place] [facility] [address] [id number] [place] [address]- 3948 March, [facility] [place] [facility] [address] [id number] [place] [address]- 3541 Jan, [facility] [place] [facility] [address] [id number] [place] [address]- 0889 Jan, [facility] [place] [facility] [address] [id number] [place] [address]- 2792 Jan, [facility] [place] [facility] [address] [id number] [place] [address]- 2441 Jan, [facility] [place] [facility] [address] [id number] [place] [address]- 0302 Dec, 2013 [facility] [place] [facility] [address] [id number] [place] [address]- 3174 25 Dec, 2013 [facility] [place] [facility] [address] [id number] [place] [address]- 0459 18 Dec, 2013 [facility] [place] [facility] [address] [id number] [place] [address]- 9852 18 Dec, 2013 [facility] [place] [facility] [address] [id number] [place] [address]- 7976 15 Dec, 2013 [facility] [place] [facility] [address] [id number] [place] [address]- 1896 14 Dec, 2013 [facility] [place] [facility] [address] [id number] [place] [address]- 9597 13 Dec, 2013 [facility] [place] [facility] [address] [id number] [place] [address]- 5365 13 Dec, 2013 [facility] [place] [facility] [address] [id number] [place] [address]- 1270 12 Dec, 2013 [facility] [place] [facility] [address] [id number] [place] [address]- 9272 Dec, [facility] [place] [facility] [address] [id number] [place] [address]- 6286 05 Dec, 2013 [facility] [place] [facility] [address] [id number] [place] [address]- 0931 05 Dec, 2013 [facility] [place] [facility] [address] [id number], [place] [address]- 4242 Dec, [facility] [place] [facility] [address] [id number] [place] 7527 Dec, [facility] [place] [facility] [address] [id number] [place] [address]- 8647 Dec, [facility] [place] [facility] [address] [id number] [place] [address]- 4688 Dec, [facility] [place] [facility] [address] [id number] [place] [address]- 9773 06 Dec, 2013 [facility] [address] [id number] [place] [address]- 8447 Dec, [facility] [address] [id number] [place] [address]- 5746 Nov, [facility] [address] [id number] [place] [address]- 2124 Nov, [facility] [address] [id number] [place] [address]- 8352 Nov, [facility] [address] [id number] [place] [address]- 9374 Nov, [facility] [address] [id number] [place] [address]- 0937 Nov, [facility] [address] [id number] [place] [address]- 3485 Nov, [facility] [address] [id number] [place] [address]- 6199 Nov, [facility] [address] [id number] [place] [address]- 6696 Nov, [facility] [address] [id number] [place] [address]- 3753 Oct, [facility] [address] [id number] [place] [address]- 2396 Oct, [facility] [address] [id number] [place] [address]- 7440 Oct, [facility] [place] [facility] [address] [id number] [place] [address]- 2174 Oct, [facility] [address] [id number] [place] [address]- 3766 Oct, [facility] [address] [id number] [place] [address]- 4721 Oct, [facility] [place] [facility] [address] [id number] [place] [address]- 6267 Sep, [facility] [place] [facility] [address] [id number] [place] [address]- 6536 Sep, [facility] [place] [facility] [address] [id number] [place] [address]- 9437 Sep, [facility] [place] [facility] [address] [id number] [place] [address]- 1481 Sep, [facility] [place] [facility] [address] [id number] [place] [address]- 8237 Aug, [facility] [place] [facility] [address] [id number] [place] [address]- 5435 Aug, [facility] [place] [facility] [address] [id number] [place] [address]- 7152 Aug, [facility] [place] [facility] [address] [id number] [place] [address]- 2440 Aug, [facility] [place] [facility] [address] [id number] [place] [address]- 2285 Jul, [facility] [place] [facility] [address] [id number] [place] [address]- 6729 Jul, [facility] [place] [facility] [address] [id number] [place] [address]- 7897 Jun, [facility] [place] [facility] [address] [id number], [place] [address]- 8016 Jun, [facility] [place] [facility] [address] [id number] [place] [address]- 2953 Apr, [facility] [place] [facility] [address] [id number] [place] [address]- 5486 Apr, [facility] [place] [facility] [address] [id number] [place] [address] Apr, [facility] [place] [facility] [address] [id number] [place] [address] Apr, [facility] [address] [id number] [place] [address] March, [facility] [address] [id number] [place] [address] March, [facility] [address] [id number] [place] [address] March, [facility] [address] [id number] [place] [address] Jan, [facility] [address] [id number] [place] [address] Jan, [facility] [address] [id number] [place] [address] Dec, [facility] [address] [id number] [place] [address] Dec, [facility] [address] [id number] [place] [address] Dec, [facility] [address] [id number] [place] [address] Dec, [facility] [address] [id number] [place] [address] Dec, [facility] [address] [id number] [place] [address] Dec, [facility] [address] [id number] [place] [address] Nov, [facility] [address] [id number] [place] [address] Nov, [facility] [address] [id number] [place] [address] Oct, [facility] [address] [id number] [place] [address] Oct, [facility] [address] [id number] [place] [address] Oct, [facility] [place] [facility] [address] [id number] [place] [address] Oct, [facility] [place] [facility] [address] [id number] [place] [address] Oct, [facility] [place] [facility] [address] [id number] [place] [address] Oct, [facility] [place] [facility] [address] [id number] [place] [address] Oct, [facility] [place] [facility] [address] [id number] [place] [address] Oct, [facility] [address] [id number] [place] [address] Oct, [facility] [place] [facility] [address] [id number] [place] [address] Oct, [facility] [place] [facility] [address] [id number] [place] [address] Sep, [facility] [place] [facility] [address] [id number] [place] [address] Sep, [facility] [place] [facility] [address] [id number] [place] [address] Sep, [facility] [place] [facility] [address] [address] [id number] [address] Sep, [facility] [place] [facility] [address] [id number] [place] [address] Aug, [facility] [place] [facility] [address] [id number] [place] [address] Aug, [facility] [place] [facility] [address] [id number] [place] [address] Aug, [facility] [place] [facility] [address] [id number] [place] [address] Jul, [facility] [place] [facility] [address] [id number] [place] [address] Jun, [facility] [place] [facility] [address] [id number] [place] [address] Jun, [facility] [place] [facility] [address] [id number] [place] [address] May, [facility] [place] [facility] [address] [id number] [place] [address] Apr, [facility] [place] [facility] [address] [id number] [place] [address] March, [facility] [place] [facility] [address] [id number] [place] [address] Jan, [facility] [place] [facility] [address] [id number] [place] [address] Dec, [facility] [place] [facility] [address] [id number] [place] [address] Dec, [facility] [place] [facility] [address] [id number] [place] [address] Nov, [facility] [place] [facility] [address] [facility] [id number] [place] [address] Oct, [facility] [place] [facility] [address] [id number] [place] [address] Oct, [facility] [place] [facility] [address] [id number] [place] [address] Sep, [facility] [place] [facility] [address] [id number] [place] [address] Aug, [facility] [place] [facility] [address] [id number] [place] [address] 17 Dec, 2010 [facility] [place] [facility] [address] [facility] [id number] [place] [address] Oct, [facility] [place] [facility] [address] [id number] [address] [address] [place], [facility] [id number] [address] Oct, [facility] [id number] [address] Jun, [facility] [id number] [address] Jun, [facility] [id number] [address] Oct, [facility] [id number] [place] [address] Sep, [facility] [id number] [address] Sep, [facility] [id number] [place] [address] Sep, [facility] [id number], [place] [address] Aug, [facility] [id number], [place] [address] Dec, IMMUNIZATIONS No Known Immunizations SOCIAL HISTORY Never Assessed REASON FOR VISIT BH intake. Sendy OLSEN PLAN OF CARE Activity Details Follow Up 4 Weeks Reason: VITAL SIGNS Height 60 in 2017-12-28 Weight 180 lbs 2017-12-28 Heart Rate 78 bpm 2017-12-28 Respiratory Rate 18 2017-12-28 BMI 35.15 kg/m2 2017-12-28 Blood pressure systolic 128 mmHg 2017-12-28 Blood pressure diastolic 74 mmHg 2017-12-28 MEDICATIONS Medication Instructions Dosage Frequency Start Date End Date Duration Status Welchol 625 MG Orally 3 times a day 1 tablets with meals 8h Jun, 30 day(s) Active Cymbalta 30 MG Orally every morning 3 capsule Oct, 30 days Active Fluticasone Propionate [...]
--- OUTSIDE RECORDS SUMMARY | 2019-01-13 21:58 | XMS REPORT ---
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 Name Role Phone PADMINI LUJAN Unavailable PROBLEMS Type Condition ICD9-CM Code ODG02-XI Code Onset Dates Condition Status SNOMED Code Problem BMI 35.0-35.9,adult Z68.35 Active 371180980 Problem Tobacco use Z72.0 Active 109350824 Problem Chronic fatigue R53.82 Active 89471579 Problem Prediabetes R73.03 Active 647244122 Problem Chronic reflux esophagitis K21.0 Active 801326015 Problem Carpal tunnel syndrome of right wrist G56.01 Active 14791312 Problem PTSD (post-traumatic stress disorder) F43.10 Active 25791851 Problem 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 04397593 Problem Elevated lymphocytes D72.820 Active 27871923 Problem WILMA (generalized anxiety disorder) F41.1 Active 15597491 Problem Severe episode of recurrent major depressive disorder, without psychotic features F33.2 Active 86173447 ALLERGIES No Information ENCOUNTERS Encounter Location Date Diagnosis [facility] [id number] [place] [address] 09481- 5890 Apr, [facility] [id number] [place] [address] 44364- 1235 Apr, [facility] [id number] [place] [address] 80069- 3999 March, [facility] [address] [address]- [address]656 March, Severe episode of recurrent major depressive disorder, without psychotic features F33.2 ; WILMA (generalized anxiety disorder) F41.1 and PTSD (post-traumatic stress disorder) F43.10 [facility] [address] 8[address]55- 2274 March, [facility] [address] [address] Jan, Severe episode of recurrent major depressive disorder, without psychotic features F33.2 ; WILMA (generalized anxiety disorder) F41.1 and PTSD (post-traumatic stress disorder) F43.10 [facility] [id number] [place] [address] 99719- 7414 Jan, Carpal tunnel syndrome of right wrist G56.01 [facility] [id number] [place] [address] 39024- 3655 Jan, Severe episode of recurrent major depressive disorder, without psychotic features F33.2 ; WILMA (generalized anxiety disorder) F41.1 and PTSD (post-traumatic stress disorder) F43.10 [facility] [id number] [place] [address] 57038- 8850 Dec, Severe episode of recurrent major depressive disorder, without psychotic features F33.2 ; WILMA (generalized anxiety disorder) F41.1 and PTSD (post-traumatic stress disorder) F43.10 [facility] [id number] [place] [address] 32629- 4000 Dec, Severe episode of recurrent major depressive disorder, without psychotic features F33.2 ; WILMA (generalized anxiety disorder) F41.1 and PTSD (post-traumatic stress disorder) F43.10 [facility] [id number] [place] [address] 12063- 2602 Dec, Severe episode of recurrent major depressive disorder, without psychotic features F33.2 ; WILMA (generalized anxiety disorder) F41.1 and PTSD (post-traumatic stress disorder) F43.10 [facility] [id number] [place] [address] 63566- 3310 Dec, Severe episode of recurrent major depressive disorder, without psychotic features F33.2 [facility] [id number] [place] [address] 87376- 4026 Dec, Severe episode of recurrent major depressive disorder, without psychotic features F33.2 ; WILMA (generalized anxiety disorder) F41.1 and PTSD (post-traumatic stress disorder) F43.10 [facility] [id number] [place] [address] Dec, Severe episode of recurrent major depressive disorder, without psychotic features F33.2 ; WILMA (generalized anxiety disorder) F41.1 and PTSD (post-traumatic stress disorder) F43.10 [facility] [address] 48987- 8461 Dec, Severe episode of recurrent major depressive disorder, without psychotic features F33.2 and Anxiety state, unspecified F41.[address] 79612- 2113 Dec, Severe episode of recurrent major depressive disorder, without psychotic features F33.2 and Anxiety state, unspecified F41.[address] 44746- 5667 Nov, Depression, major, recurrent, moderate F33.1 and Anxiety state, unspecified F41.[address] 21575- 0546 Nov, Depression, major, recurrent, moderate F33.1 and Anxiety state, unspecified F41.1 [place] [id number] [place] [address] 21202- 7794 Oct, Depression, major, recurrent, moderate F33.1 and Anxiety state, unspecified F41.1 [facility] [id number] [place] [address] 27096- 4815 Oct, Depression, major, recurrent, moderate F33.1 and Post- cholecystectomy syndrome K91.5 [place] [id number] [place] [address] [address] Oct, Depression, major, recurrent, moderate F33.1 and Anxiety state, unspecified F41.1 [place] [address]- 2546 Sep, Depression, major, recurrent, moderate F33.1 and Anxiety state, unspecified F41.1 [facility] [id number] [place] [address] Sep, Depression, major, recurrent, moderate F33.1 and Anxiety state, unspecified F41.1 [facility] [id number] [place] [address]- 7464 Sep, Depression, major, recurrent, moderate F33.1 and Anxiety state, unspecified F41.1 [facility] [id number] [place] [address] 646 Sep, Diarrhea, unspecified type R19.7 [facility] [id number] [place] [address] 636 Aug, Depression, major, recurrent, moderate F33.1 and Anxiety state, unspecified F41.1 [facility] [id number] [place] 4637 Aug, Depression, major, recurrent, moderate F33.1 and Anxiety state, unspecified F41.1 [facility] [id number] [place] [address] 171 Jul, Depression, major, recurrent, moderate F33.1 and Anxiety state, unspecified F41.1 [facility] [id number] [place] [address] Jun, Depression, major, recurrent, moderate F33.1 and Anxiety state, unspecified F41.1 [facility] [id number] [place] [address] [address] Jun, Generalized abdominal pain R10.84 ; Diarrhea, unspecified type R19.7 ; Acute cystitis without hematuria N30.00 ; Abdominal bloating R14.0 and Elevated blood pressure reading R03.0 [facility] [id number] [place] [address] [address]781 Jun, Depression, major, recurrent, moderate F33.1 and Anxiety state, unspecified F41.1 [facility] [id number] [place] [address] 10496- 4133 May, Depression, major, recurrent, moderate F33.1 and Anxiety state, unspecified F41.1 [facility] [id number] [place] [address] 14710- 2922 May, Elevated lymphocytes D72.820 [facility] [address] 35596- 0163 May, Elevated lymphocytes D72.820 [facility] [address] 31181- 1920 May, BMI 35.0-35.9,adult Z68.35 ; Other fatigue R53.83 ; Pelvic pain R10.2 ; Tobacco use Z72.0 and Chronic reflux esophagitis K21.0 [facility] [id number] [place] [address] 41062- 0918 Apr, [facility] [id number] [place] [address] 25372- 5765 Apr, Depression, major, recurrent, moderate F33.1 and Anxiety state, unspecified F41.1 [facility] [id number] [place] [address] 29050- 1419 Apr, Depression, major, recurrent, moderate F33.1 and Anxiety state, unspecified F41.1 [facility] [id number] [place] [address] 47063- 4663 Apr, [facility] [id number] [place] [address] 46710- 6581 March, Major depressive disorder, recurrent episode, mild F33.0 and Anxiety state, unspecified F41.1 [facility] [address] [place] [address] 99275 -4020 March, Sore throat J02.9 and Submandibular lymphadenopathy R59.0 [facility] [address] [address]- 8819 Dec, Major depressive disorder, recurrent episode, mild F33.0 and Anxiety state, unspecified F41.1 [facility] [address] [place] [address] 94229- 9447 Dec, Major depressive disorder, recurrent episode, mild F33.0 and Anxiety state, unspecified F41.1 [facility] [id number] [place] [address] 53951- 0565 Dec, Major depressive disorder, recurrent episode, mild F33.0 and Anxiety state, unspecified F41.1 [facility] [id number] [place] [address] 82489- 2827 Sep, Major depressive disorder, recurrent episode, mild F33.0 and Anxiety state, unspecified F41.1 [facility] [id number] [place] [address] 08803- 7097 Sep, Major depressive disorder, recurrent episode, moderate F33.1 and Anxiety state, unspecified F41.1 [facility] [id number] [place] [address] 75797- 1118 Aug, Major depressive disorder, recurrent episode, moderate F33.1 and Anxiety state, unspecified F41.1 [facility] [address] [place] [address] 85080- 6061 Aug, Major depressive disorder, recurrent episode, moderate F33.1 and Anxiety state, unspecified F41.1 [facility] [address] [place] [address] 24232- 0338 Jul, Major depressive disorder, recurrent episode, moderate F33.1 and Anxiety state, unspecified F41.1 [facility] [address], [place] [address]- 3390 Jul, Major depressive disorder, recurrent episode, moderate F33.1 and Anxiety state, unspecified F41.1 [facility] [id number] [place] [address] 12602- 3521 Jun, Major depressive disorder, recurrent episode, moderate F33.1 and Anxiety state, unspecified F41.1 [facility] [id number] [place] [address] 53758- 5585 Jun, Major depressive disorder, recurrent episode, moderate F33.1 and Anxiety state, unspecified F41.1 [facility] [facility] [id number] [place] [address] 98131- 7091 May, Major depressive disorder, recurrent episode, moderate F33.1 and Anxiety state, unspecified F41.1 [facility] [id number] [place] [address] 01329- 8635 Apr, Major depressive disorder, recurrent episode, moderate F33.1 and Anxiety state, unspecified F41.1 [facility] [facility] [id number] [place] [address] 06401- 1714 Apr, Major depressive disorder, recurrent episode, moderate F33.1 and Anxiety state, unspecified F41.1 [facility] [facility] [id number] [place] [address] 80974- 1140 Dec, Major depressive disorder, recurrent episode, moderate F33.1 and Anxiety state, unspecified F41.1 [facility] [id number] [place] [address] 22742- 0388 Dec, Major depressive disorder, recurrent episode, moderate F33.1 and Anxiety state, unspecified F41.1 [facility] [address] [place] [address] 11086 -3058 Dec, Pharyngitis J02.9 and Acute frontal sinusitis J01.10 [place] [id number] [place] [address] 88830- 9519 Nov, Bilateral occipital neuralgia M54.81 and Neck muscle spasm M62.838 [place] [id number] [place] [address] 79644- 2952 Nov, Major depressive disorder, recurrent episode, moderate F33.1 and Anxiety state, unspecified F41.1 [facility] [address] 5153 Sep, Major depressive disorder, recurrent episode, moderate F33.1 and Anxiety state, unspecified F41.1 [facility] [address] [address]- 3547 Aug, Major depressive disorder, recurrent episode, moderate F33.1 and Anxiety state, unspecified F41.1 [facility] [id number] [place] [address] 085676- 2193 Jul, Abdominal pain 789.00 ; Hematochezia 578.1 and Weight loss 783.21 [facility] [id number] [address]- 1543 May, [facility] [id number] [place] [address] 25372- 7904 March, [facility] [id number] [place] [address] 91461- 5255 March, [facility] [id number] [place] [address] 04148- 9321 Jan, [facility] [address] [address]- 9587 Jan, [facility] [address] [place] [address] 47408- 9158 Dec, [facility] [address], [place] [address]- 3714 Dec, [facility] [id number] [address]- 7544 Dec, [facility] [address] 7196 Dec, [facility] [address] [place] [address] 62681- 2861 Dec, 2014 [facility] [place] [facility] [address] [id number] [place] [address]- 2101 Dec, 2014 [facility] [place] [facility] [address] [id number] [place] [address]- 3186 Jul, 2013 [facility] [place] [facility] [address] [id number] [place] [address]- 1936 Jul, 2013 [facility] [place] [facility] [address] [id number] [place] [address]- 0249 Jul, 2013 [facility] [place] [facility] [address] [id number] [place] [address]- 4306 11 Jul, 2013 [facility] [place] [facility] [address] [id number] [place] [address]- 2034 Jul, 2013 [facility] [place] [facility] [address] [id number] [place] [address]- 5708 Jul, 2013 [facility] [place] [facility] [address] [id number] [place] [address]- 6096 Jul, 2013 [facility] [place] [facility] [address] [id number] [place] [address]- 4737 Jul, 2013 [facility] [place] [facility] [address] [id number] [place] [address]- 2062 Jul, 2013 [facility] [place] [facility] [address] [id number] [address]- 4214 Jul, 2013 [facility] [place] [facility] [address] [id number], [place] [address] 2545 Jul, 2013 [facility] [place] [facility] [address] [id number] [place] [address] 2543 Jul, 2013 [facility] [place] [facility] [address] [id number] [place] [address]- 3230 May, 2013 [facility] [place] [facility] [address] [id number] [place] [address]- 4190 May, 2013 [facility] [place] [facility] [address] [id number] [place] [address]- 2968 Apr, [facility] [place] [facility] [address] [id number] [place] [address]- 8442 Apr, [facility] [place] [facility] [address] [id number] [place] [address]- 2547 Apr, [facility] [place] [facility] [address] [id number] [place] 8298 Apr, [facility] [place] [facility] [address] [id number] [place] [address]- 1677 March, [facility] [place] [facility] [address] [id number] [place] [address]- 5476 March, [facility] [place] [facility] [address] [id number] [place] [address]- 8411 Jan, [facility] [place] [facility] [address] [id number] [place] [address]- 8802 Jan, [facility] [place] [facility] [address] [id number] [place] [address]- 1111 Jan, [facility] [place] [facility] [address] [id number] [place] [address]- 4550 Jan, [facility] [place] [facility] [address] [id number] [place] [address]- 1031 Dec, [facility] [place] [facility] [address] [id number] [place] [address]- 3838 25 Dec, 2013 [facility] [place] [facility] [address] [id number] [place] [address]- 6854 18 Dec, 2013 [facility] [place] [facility] [address] [id number] [place] [address]- 4268 18 Dec, 2013 [facility] [place] [facility] [address] [id number] [place] [address]- 8067 15 Dec, 2013 [facility] [place] [facility] [address] [id number] [place] [address]- 5500 14 Dec, 2013 [facility] [place] [facility] [address] [id number] [place] [address]- 6016 13 Dec, 2013 [facility] [place] [facility] [address] [id number] [place] [address]- 4597 13 Dec, 2013 [facility] [place] [facility] [address] [id number] [place] [address]- 4343 Dec, [facility] [place] [facility] [address] [id number] [place] [address]- 6999 Dec, [facility] [place] [facility] [address] [id number] [place] [address]- 6417 05 Dec, 2013 [facility] [place] [facility] [address] [id number] [place] [address]- 2220 Dec, [facility] [place] [facility] [address] [id number] [place] [address]- 9747 Dec, [facility] [place] [facility] [address] [id number] [place] [address]- 6403 Dec, [facility] [place] [facility] [address] [id number] [place] [address]- 9756 Dec, [facility] [place] [facility] [address] [id number] [place] [address]- 3452 Dec, [facility] [place] [facility] [address] [id number] [place] [address]- 9926 Dec, [facility] [place] [facility] [address] [id number] [place] [address]- 3789 Dec, [facility] [place] [facility] [address] [id number] [place] [address]- 8473 Nov, [facility] [place] [facility] [address] [id number] [place] [address]- 3460 Nov, [facility] [place] [facility] [address] [id number] [place] [address]- 5027 Nov, [facility] [place] [facility] [address] [id number] [address]- 7370 Nov, [facility] [address] [id number] [place] [address]- 6808 Nov, [facility] [place] [facility] [address] [id number] [place] [address]- 2259 Nov, [facility] [address] [id number] [place] [address]- 2245 Nov, [facility] [place] [facility] [address] [id number] [place] [address]- 2486 Nov, [facility] [address] [id number] [place] [address]- 7986 Oct, [facility] [place] [facility] [address] [id number] [place] [address]- 4736 Oct, [facility] [address] [id number] [place] [address]- 1252 Oct, [facility] [place] [facility] [address] [id number] [place] [address]- 1084 Oct, [facility] [address] [id number] [place] [address]- 3000 Oct, [facility] [place] [facility] [address] [facility] [id number] [place] [address]- 1934 Oct, [facility] [place] [facility] [address] [id number] [place] [address]- 7044 Sep, [facility] [place] [facility] [address] [id number], [place] [address]- 1628 Sep, [facility] [place] [facility] [address] [id number], [place] [address]- 1333 Sep, [facility] [place] [facility] [address] [id number], [place] [address]- 9143 Sep, [facility] [place] [facility] [address] [id number], [place] [address]- 8768 Aug, [facility] [place] [facility] [address] [id number] [place] [address]- 5814 Aug, [facility] [place] [facility] [address] [id number] [place] [address]- 0010 Aug, [facility] [place] [facility] [address] [id number] [place] [address]- 7067 Aug, [facility] [place] [facility] [address] [id number] [place] [address]- 9540 Jul, [facility] [place] [facility] [address] [id number] [place] [address]- 3775 Jul, [facility] [place] [facility] [address] [id number] [place] [address]- 0903 Jun, [facility] [place] [facility] [address] [id number] [place] [address]- 3909 Jun, [facility] [place] [facility] [address] [id number] [place] [address]- 6155 Apr, [facility] [place] [facility] [address] [id number] [place] [address]- 7373 Apr, [facility] [place] [facility] [address] [id number] [place] [address]- 5086 Apr, [facility] [place] [facility] [address] [id number] [place] [address]- 5133 Apr, [facility] [place] [facility] [address] [id number] [place] [address]- 6707 March, [facility] [place] [facility] [address] [id number] [place] [address]- 5568 March, [facility] [place] [facility] [address] [id number] [place] [address]- 0053 March, [facility] [place] [facility] [address] [id number] [place] [address]- 3099 Jan, [facility] [place] [facility] [address] [id number] [place] [address]- 5556 Jan, [facility] [address] [id number] [place] [address]- 2611 Dec, [facility] [place] [facility] [address] [id number] [place] [address]- 9596 Dec, [facility] [place] [facility] [address] [id number] [place] [address]- 1816 Dec, [facility] [place] [facility] [address] [id number] [place] [address]- 5080 Dec, [facility] [place] [facility] [address] [id number] [place] [address] Dec, [facility] [address] [id number] [place] [address] Dec, [facility] [address] [id number] [place] [address] Nov, [facility] [place] [facility] [address] [id number] [place] [address] Nov, [facility] [address] [id number] [place] [address] Oct, [facility] [place] [facility] [address] [id number] [place] [address] Oct, [facility] [address] [id number] [place] [address] Oct, [facility] [place] [facility] [address] [id number] [place] [address] Oct, [facility] [place] [facility] [address] [id number] [place] [address] Oct, [facility] [place] [facility] [address] [id number] [place] [address] Oct, [facility] [place] [facility] [address] [id number] [place] [address] Oct, [facility] [place] [facility] [address] [id number] [place] [address] Oct, [facility] [place] [facility] [address] [id number] [place] [address] Oct, [facility] [place] [facility] [address] [id number] [place] [address]- [address] Oct, [facility] [address] [id number] [place] [address] Sep, [facility] [place] [facility] [address] [id number] [place] [address] Sep, [facility] [place] [facility] [address] [id number] [place] [address]- [address] Sep, [facility] [place] [facility] [address] [id number] [place] [address]- [address] Sep, [facility] [place] [facility] [address] [id number] [place] [address] Aug, [facility] [address] [id number] [place] [address] Aug, [facility] [place] [facility] [address] [id number] [place] [address] Aug, [facility] [address] [id number] [place] [address] Jul, [facility] [place] [facility] [address] [id number] [place] [address] Jun, [facility] [place] [facility] [address] [id number] [place] [address] Jun, [facility] [place] [facility] [address] [id number] [place] [address] May, [facility] [place] [facility] [address] [id number] [place] [address] Apr, [facility] [place] [facility] [address] [id number] [place] [address] March, [facility] [address] [id number] [place] [address] Jan, [facility] [place] [facility] [address] [id number] [place] [address] 29 Dec, 2011 [facility] [address] [id number] [place] [address] 15 Dec, 2011 [facility] [place] [facility] [address] [id number] [place] [address] Nov, [facility] [address] [id number] [place] [address] Oct, [facility] [place] [facility] [address] [id number] [place] [address]- [address] Oct, [facility] [address] [id number] [place] [address] Sep, [facility] [place] [facility] [address] [id number] [place] [address] Aug, [facility] [place] [facility] [address] [id number] [place] [address] Dec, [facility] [place] [facility] [address] [id number] [place] [address] Oct, [facility] [place] [facility] [address] [id number] [place] [address] Oct, [facility] [place] [facility] [address] [id number] [address] Oct, [facility] [place] [facility] [address] [id number] [place] [address] Jun, [facility] [place] [facility] [address] [id number], [place] [address] Jun, [facility] [place] [facility] [address] [facility] [id number] [place] [address] Oct, [facility] [place] [facility] [address] [facility] [id number] [place] [address] Sep, [facility] [address] [facility] [id number], [place] [address] Sep, [facility] [address] [facility] [id number], [place] [address] Sep, [facility] [address] [facility] [id number], [place] [address] Aug, [facility] [address] [facility] [id number], [place] [address] Dec, IMMUNIZATIONS No Known Immunizations SOCIAL HISTORY Never Assessed REASON FOR VISIT Follow-up Depression/Anxiety PLAN OF CARE Activity Details Follow Up 2 Weeks Reason: Follow-up VITAL SIGNS MEDICATIONS Unknown Medications RESULTS No Results PROCEDURES Procedure Date Ordered Result Body Site Psychotherapy, patient &/family, 30 minutes, established patient Aug 20, 2017 INSTRUCTIONS MEDICATIONS ADMINISTERED No Known Medications MEDICAL (GENERAL) HISTORY Type Description Date Medical History GERD Medical History anxiety Medical History depression Surgical History C- section x 2 Surgical History tubal ligation Surgical History hysterectomy 2008 Surgical History cholecystectomy 2013 Surgical History Fibroid removal Hospitalization History inpatient treatment Mirtha SMITH 21 years old Hospitalization History surgeries
--- OUTSIDE RECORDS SUMMARY | 2019-01-13 21:59 | XMS REPORT ---
Author Author PADMINI LUJAN [facility] Address [address] [place] [address] Care Team Providers Care Site Inspector Name Role Phone PADMINI LUJAN Unavailable PROBLEMS Type Condition ICD9-CM Code [id number] Code Onset Dates Condition Status SNOMED Code Problem Anxiety state, unspecified F41.1 Active 982105668 Problem Chronic reflux esophagitis K21.0 Active 634603403 Assessment Major depressive disorder, recurrent episode, moderate F33.1 Jul, Active [id number] ALLERGIES Unknown Allergies SOCIAL HISTORY No smoking Hx information available PLAN OF CARE VITAL SIGNS MEDICATIONS Unknown Medications RESULTS No Results PROCEDURES Procedure Date Ordered Related Diagnosis Body Site Psychotherapy, patient &/family, 30 minutes, established patient Jul 31, 2016 IMMUNIZATIONS No Known Immunizations
--- OUTSIDE RECORDS SUMMARY | 2019-01-13 21:59 | XMS REPORT ---
Author Author PADMINI LUJAN [facility] Address [address] [place] [address] Care Team Providers Care Title Vehicle Service Attendant Name Role Phone PADMINI LUJAN Unavailable PROBLEMS Type Condition ICD9-CM Code YGN22-PY Code Onset Dates Condition Status SNOMED Code Problem BMI 35.0-35.9,adult Z68.35 Active 393186970 Problem Tobacco use Z72.0 Active 565239874 Problem Chronic fatigue R53.82 Active 33050172 Problem Prediabetes R73.03 Active 621248642 Problem Chronic reflux esophagitis K21.0 Active 660726782 Problem Carpal tunnel syndrome of right wrist G56.01 Active 79392934 Problem PTSD (post-traumatic stress disorder) F43.10 Active 23725832 Problem 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 70040836 Problem Elevated lymphocytes D72.820 Active 45845146 Problem WILMA (generalized anxiety disorder) F41.1 Active 12405584 Problem Severe episode of recurrent major depressive disorder, without psychotic features F33.2 Active 68457174 ALLERGIES No Information ENCOUNTERS Encounter Location Date Diagnosis [place] [id number] [place] [address] 67962- 8188 Jun, [facility] [id number] [place] [address] 43207- 6793 Jun, [facility] [id number] [place] [address] 38744- 1354 May, [facility] [address] 92007- [address]200 Apr, Severe episode of recurrent major depressive disorder, without psychotic features F33.2 ; WILMA (generalized anxiety disorder) F41.1 and PTSD (post-traumatic stress disorder) F43.10 [facility] [address] 39431- 6137 March, Severe episode of recurrent major depressive disorder, without psychotic features F33.2 ; WILMA (generalized anxiety disorder) F41.1 and PTSD (post-traumatic stress disorder) F43.10 [place] [address] [place] [address] 15546- 8280 March, Severe episode of recurrent major depressive disorder, without psychotic features F33.2 ; WILMA (generalized anxiety disorder) F41.1 and PTSD (post-traumatic stress disorder) F43.10 [place] [address] [place] [address] 86650- 8410 March, [place] [address] [place] [address] 29945- 1419 Jan, Severe episode of recurrent major depressive disorder, without psychotic features F33.2 ; WILMA (generalized anxiety disorder) F41.1 and PTSD (post-traumatic stress disorder) F43.10 [place] [address] [place] [address] 88212- 0898 Jan, Carpal tunnel syndrome of right wrist G56.01 [place] [address] [place] [address] 69014- 8085 Jan, Severe episode of recurrent major depressive disorder, without psychotic features F33.2 ; WILMA (generalized anxiety disorder) F41.1 and PTSD (post-traumatic stress disorder) F43.10 [place] [address] [place] [address] 90904- 8928 Dec, Severe episode of recurrent major depressive disorder, without 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 ; WILMA (generalized anxiety disorder) F41.1 and PTSD (post-traumatic stress disorder) F43.10 [place] [address] [place] [address] 36350- 1202 Dec, Severe episode of recurrent major depressive disorder, without psychotic features F33.2 ; WILMA (generalized anxiety disorder) F41.1 and PTSD (post-traumatic stress disorder) F43.10 [place] [address] [place] [address] 17289- 4289 Dec, Severe episode of recurrent major depressive disorder, without 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 ; WILMA (generalized anxiety disorder) F41.1 and PTSD (post-traumatic stress disorder) F43.10 [place] [address] [place] [address] 50473- 9095 Dec, Severe episode of recurrent major depressive disorder, without psychotic features F33.2 [place] [address] [place] [address] 311975- 0947 Dec, Severe episode of recurrent major depressive disorder, without psychotic features F33.2 ; WILMA (generalized anxiety disorder) F41.1 and PTSD (post-traumatic stress disorder) F43.10 [place] [address] [place] [address] 24599- 4990 Dec, Severe episode of recurrent major depressive disorder, without 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 ; WILMA (generalized anxiety disorder) F41.1 and PTSD (post-traumatic stress disorder) F43.10 [place] [address] [place] [address] 67708- 3518 Dec, Severe episode of recurrent major depressive disorder, without 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 and Anxiety state, unspecified F41.1 [place] [address] [place] [address] 96058- 1407 14 Dec, 2017 Severe episode of recurrent major depressive disorder, without psychotic features F33.2 and Anxiety state, unspecified F41.1 [place] [address] [place] [address] 05869- 5966 Nov, Depression, major, recurrent, moderate F33.1 and Anxiety state, unspecified F41.1 [place] [address] [place] [address] 41263- 0342 Nov, Depression, major, recurrent, moderate F33.1 and Anxiety state, unspecified F41.1 [place] [address] [place] [address] 55393- 6846 Oct, Depression, major, recurrent, moderate F33.1 and Anxiety state, unspecified F41.1 [place] [address] [place] [address] 39740- 5842 07 Oct, 2017 Depression, major, recurrent, moderate F33.1 and Post- cholecystectomy syndrome K91.5 [place] [address] [address] [address] [place] [address] 54009- 6374 Oct, Depression, major, recurrent, moderate F33.1 and Anxiety state, unspecified F41.1 [place] [address] [place] [address] 77453- 3701 Sep, Depression, major, recurrent, moderate F33.1 and Anxiety state, unspecified F41.1 [place] [address] [place] [address] 74769- 0528 Sep, Depression, major, recurrent, moderate F33.1 and Anxiety state, unspecified F41.1 [place] [address] [place] [address] 72412- 5279 Sep, Depression, major, recurrent, moderate F33.1 and Anxiety state, unspecified F41.1 [place] [address] [place] [address] 81528- 4680 Sep, Diarrhea, unspecified type R19.7 [place] [address] [address] [place] [address] 32645- 1749 Aug, Depression, major, recurrent, moderate F33.1 and Anxiety state, unspecified F41.1 [place] [address] [place] [address] 54160- 0382 Aug, Depression, major, recurrent, moderate F33.1 and Anxiety state, unspecified F41.1 [place] [address] [address] [place] [address]- 9247 Jul, Depression, major, recurrent, moderate F33.1 and Anxiety state, unspecified F41.1 [place] [address] [place] [address]- 2546 Jun, Depression, major, recurrent, moderate F33.1 and Anxiety state, unspecified F41.1 [place] [address] [place] [address] 64436- 2442 Jun, Generalized abdominal pain R10.84 ; Diarrhea, unspecified type R19.7 ; Acute cystitis without hematuria N30.00 ; Abdominal bloating R14.0 and Elevated blood pressure reading R03.0 [place] [address] [place] [address] 86387- 1781 Jun, Depression, major, recurrent, moderate F33.1 and Anxiety state, unspecified F41.1 [place] [address] [place] [address] 9299 May, Depression, major, recurrent, moderate F33.1 and Anxiety state, unspecified F41.1 [place] [address] 34940- 0058 May, Elevated lymphocytes D72.820 [place] [address] [place] [address] 53252- 3623 May, Elevated lymphocytes D72.820 [place] [address] [address] [place] [address] 87317- 0405 May, BMI 35.0-35.9,adult Z68.35 ; Other fatigue R53.83 ; Pelvic pain R10.2 ; Tobacco use Z72.0 and Chronic reflux esophagitis K21.0 [place] [address] [place] [address] 97704- 6789 Apr, [place] [id number] [place] [address] 88228- 8147 Apr, Depression, major, recurrent, moderate F33.1 and Anxiety state, unspecified F41.1 [place] [address] [place] [address] 87445- 3408 Apr, Depression, major, recurrent, moderate F33.1 and Anxiety state, unspecified F41.1 [place] [address] [place] [address] 47032- 0476 Apr, [place] [address] [place] [address] 72996- 1145 March, Major depressive disorder, recurrent episode, mild F33.0 and Anxiety state, unspecified F41.1 [facility] [address] 61379 -5233 March, Sore throat J02.9 and Submandibular lymphadenopathy R59.0 [place] [address] [address] [place] [address] 83075- 9104 Dec, Major depressive disorder, recurrent episode, mild F33.0 and Anxiety state, unspecified F41.1 [place] [address] [place] [address] 57646- 5547 Dec, Major depressive disorder, recurrent episode, mild F33.0 and Anxiety state, unspecified F41.1 [place] [address] [place] [address] 55609- 4749 Dec, Major depressive disorder, recurrent episode, mild F33.0 and Anxiety state, unspecified F41.1 [place] [address] [address] [address] [place] [address] 48423- 0977 Sep, Major depressive disorder, recurrent episode, mild F33.0 and Anxiety state, unspecified F41.1 [place] [address] [place] [address] 82745- 9378 Sep, Major depressive disorder, recurrent episode, moderate F33.1 and Anxiety state, unspecified F41.1 [place] [address] [place] [address] 69213- 5727 Aug, Major depressive disorder, recurrent episode, moderate F33.1 and Anxiety state, unspecified F41.1 [place] [address] [address] [place] [address] 73003- 0412 Aug, Major depressive disorder, recurrent episode, moderate F33.1 and Anxiety state, unspecified F41.1 [place] [address] [address]- 4319 Jul, Major depressive disorder, recurrent episode, moderate F33.1 and Anxiety state, unspecified F41.1 [place] [address] [address]- 9753 Jul, Major depressive disorder, recurrent episode, moderate F33.1 and Anxiety state, unspecified F41.1 [place] [address] [address]- 7277 Jun, Major depressive disorder, recurrent episode, moderate F33.1 and Anxiety state, unspecified F41.1 [place] [address] [address]- 6341 Jun, Major depressive disorder, recurrent episode, moderate F33.1 and Anxiety state, unspecified F41.1 [place] [address] [address]- 9976 May, Major depressive disorder, recurrent episode, moderate F33.1 and Anxiety state, unspecified F41.1 [place] [address] [address]- 9126 Apr, Major depressive disorder, recurrent episode, moderate F33.1 and Anxiety state, unspecified F41.1 [place] [address], [place] [address]- 0448 Apr, Major depressive disorder, recurrent episode, moderate F33.1 and Anxiety state, unspecified F41.1 [place] [address] [place] [address]- 3695 Dec, Major depressive disorder, recurrent episode, moderate F33.1 and Anxiety state, unspecified F41.1 [place] [address] [address]- 1855 Dec, Major depressive disorder, recurrent episode, moderate F33.1 and Anxiety state, unspecified F41.1 [facility] [address] [place] [address] 54459 -9012 Dec, Pharyngitis J02.9 and Acute frontal sinusitis J01.10 [facility] [address] [place] [address] 18741- 8075 Nov, Bilateral occipital neuralgia M54.81 and Neck muscle spasm M62.838 [facility] [address] [place] [address] 62620- 3375 Nov, Major depressive disorder, recurrent episode, moderate F33.1 and Anxiety state, unspecified F41.1 [facility] [address] [place] [address] 68244- 3207 Sep, Major depressive disorder, recurrent episode, moderate F33.1 and Anxiety state, unspecified F41.1 [facility] [address] [place] [address] 43442- 2819 Aug, Major depressive disorder, recurrent episode, moderate F33.1 and Anxiety state, unspecified F41.1 [place] [address] [place] [address] 72763- 4468 Jul, Abdominal pain 789.00 ; Hematochezia 578.1 and Weight loss 783.21 [facility] [address] [place] [address] 35796- 4605 May, [facility] [address] [place] [address] 30763- 1778 March, [facility] [address] [place] [address] 53973- 8495 March, [facility] [address] [place] [address] 11183- 0711 Jan, [facility] [address] [place] [address] 71080- 3958 Jan, [facility] [address] [place] [address]- 1521 Dec, 2014 [facility] [place] [facility] [address] [id number] [place] [address]- 5066 Dec, 2014 [facility] [place] [facility] [address] [id number] [place] [address]- 2546 Dec, 2014 [facility] [place] [facility] [address] [id number] [place] [address] 2546 Dec, 2014 [facility] [place] [facility] [address] [id number] [place] [address] 254 Dec, 2014 [facility] [place] [facility] [address] [id number] [place] [address]- 7303 Dec, 2014 [facility] [place] [facility] [address] [id number] [place] [address]- 8977 Jul, 2013 [facility] [place] [facility] [address] [id number] [place] [address]- 2546 Jul, 2013 [facility] [place] [facility] [address] [id number] [place] [address]- 2541 Jul, 2013 [facility] [place] [facility] [address] [id number] [place] [address] 2546 Jul, 2013 [facility] [place] [facility] [address] [id number] [place] [address]- 254 10 Jul, 2013 [facility] [place] [facility] [address] [id number] [place] [address] 2546 10 Jul, 2013 [facility] [place] [facility] [address] [id number] [place] [address] 2546 Sep, 2013 [facility] [place] [facility] [address] [id number] [place] [address] 2546 Jul, 2013 [facility] [place] [facility] [address] [id number] [place] [address]- 2546 Jul, 2013 [facility] [place] [facility] [address] [id number] [place] [address] 0152 Jul, [facility] [place] [facility] [address] [id number] [place] [address]- 7312 Jul, [facility] [place] [facility] [address] [id number] [place] [address]- 0120 Jul, [facility] [place] [facility] [address] [id number] [place] [address]- 4054 May, [facility] [place] [facility] [address] [id number] [place] [address]- 7884 May, [facility] [place] [facility] [address] [id number] [place] [address]- 3340 Apr, [facility] [place] [facility] [address] [id number] [place] [address]- 9082 Apr, [facility] [place] [facility] [address] [id number] [place] [address]- 6420 Apr, [facility] [place] [facility] [address] [id number] [place] [address]- 8398 Apr, [facility] [place] [facility] [address] [id number] [place] [address]- 9374 March, [facility] [place] [facility] [address] [id number] [place] [address]- 2346 March, [facility] [place] [facility] [address] [id number] [place] [address]- 2987 Jan, [facility] [place] [facility] [address] [id number], [place] [address]- 9263 Jan, [facility] [place] [facility] [address] [id number] [place] [address]- 5279 Jan, [facility] [place] [facility] [address] [id number] [place] [address]- 0010 Jan, [facility] [place] [facility] [address] [id number] [place] [address]- 5996 Dec, [facility] [place] [facility] [address] [id number], [place] [address]- 9026 25 Dec, 2013 [facility] [place] [facility] [address] [id number] [place] [address]- 9865 18 Dec, 2013 [facility] [place] [facility] [address] [id number] [place] [address]- 7087 18 Dec, 2013 [facility] [place] [facility] [address] [id number] [place] [address]- 4082 15 Dec, 2013 [facility] [place] [facility] [address] [id number] [place] [address]- 6691 14 Dec, 2013 [facility] [place] [facility] [address] [id number] [place] [address]- 2131 13 Dec, 2013 [facility] [place] [facility] [address] [id number] [place] [address]- 6998 13 Dec, 2013 [facility] [place] [facility] [address] [id number] [place] [address]- 1433 12 Dec, 2013 [facility] [place] [facility] [address] [id number] [place] [address]- 8705 12 Dec, 2013 [facility] [place] [facility] [address] [id number] [place] [address]- 4891 05 Dec, 2013 [facility] [place] [facility] [address] [facility] [id number] [place] [address]- 1494 05 Dec, 2013 [facility] [place] [facility] [address] [id number] [place] [address]- 6895 Dec, [facility] [place] [facility] [address] [id number] [place] [address]- 8614 Dec, [facility] [place] [facility] [address] [id number] [place] [address]- 6652 Dec, [facility] [place] [facility] [address] [id number] [place] [address]- 1921 Dec, [facility] [place] [facility] [address] [facility] [id number] [place] [address]- 0574 Dec, [facility] [place] [facility] [address] [id number] [place] [address]- 9906 Dec, [facility] [place] [facility] [address] [id number] [place] [address]- 0550 Nov, [facility] [place] [facility] [address] [id number] [place] [address]- 2045 Nov, [facility] [place] [facility] [address] [id number] [place] [address]- 9590 Nov, [facility] [place] [facility] [address] [id number] [place] [address]- 6469 Nov, [facility] [place] [facility] [address] [id number] [place] [address]- 3177 Nov, [facility] [place] [facility] [address] [id number] [place] [address]- 5231 Nov, [facility] [place] [facility] [address] [id number] [place] [address]- 5702 Nov, [facility] [place] [facility] [address] [id number] [place] [address]- 9286 Nov, [facility] [place] [facility] [address] [id number] [place] [address]- 4522 Oct, [facility] [place] [facility] [address] [id number] [place] [address]- 9627 Oct, [facility] [place] [facility] [address] [id number] [place] [address]- 4883 Oct, [facility] [place] [facility] [address] [id number] [place] [address]- 2220 Oct, [facility] [place] [facility] [address] [id number] [place] [address]- 2722 Oct, [facility] [place] [facility] [address] [id number] [place] [address]- 6780 Oct, [facility] [place] [facility] [address] [id number] [place] [address]- 4226 Sep, [facility] [place] [facility] [address] [id number] [place] [address]- 1423 Sep, [facility] [place] [facility] [address] [id number] [place] [address]- 8181 Sep, [facility] [place] [facility] [address] [id number] [place] [address]- 8157 Sep, [facility] [place] [facility] [address] [id number] [place] [address]- 6498 Aug, [facility] [place] [facility] [address] [id number] [place] [address]- 1730 Aug, [facility] [place] [facility] [address] [id number] [place] [address]- 4247 Aug, [facility] [place] [facility] [address] [id number] [place] [address]- 3467 Aug, [facility] [place] [facility] [address] [id number] [place] [address]- 5682 Jul, [facility] [place] [facility] [address] [id number] [place] [address]- 7379 Jul, [facility] [place] [facility] [address] [id number] [place] [address]- 7305 Jun, [facility] [place] [facility] [address] [id number], [place] [address]- 7939 Jun, [facility] [place] [facility] [address] [id number], [place] [address]- 2890 Apr, [facility] [place] [facility] [address] [id number] [place] [address]- 8335 Apr, [facility] [place] [facility] [address] [id number], [place] [address]- 7519 15 Apr, 2013 [facility] [place] [facility] [address] [id number] [place] [address]- 4287 14 Apr, 2013 [facility] [place] [facility] [address] [id number] [place] [address] 2546 March, [facility] [address] [id number] [place] [address]- 3476 March, [facility] [address] [id number] [place] [address]- 2546 March, [facility] [address] [id number] [place] [address] Jan, [facility] [address] [id number] [place] [address] Jan, [facility] [address] [id number] [place] [address] Dec, [facility] [address] [id number] [place] [address] Dec, [facility] [address] [id number] [place] [address] Dec, [facility] [address] [id number] [place] [address] Dec, [facility] [address] [id number] [place] [address] Dec, [facility] [address] [id number] [place] [address] Dec, [facility] [address] [id number] [place] [address] Nov, [facility] [address] [id number] [place] [address] Nov, [facility] [address] [id number] [place] [address] Oct, [facility] [address] [id number] [place] [address] Oct, [facility] [address] [id number] [place] [address] Oct, [facility] [place] [facility] [address] [id number] [place] [address] Oct, [facility] [place] [facility] [address] [id number] [place] [address] Oct, [facility] [place] [facility] [address] [id number] [place] [address] Oct, [facility] [place] [facility] [address] [id number] [place] [address] Oct, [facility] [place] [facility] [address] [id number] [place] [address] Oct, [facility] [place] [facility] [address] [id number] [place] [address] Oct, [facility] [place] [facility] [address] [facility] [id number] [place] [address] Oct, [facility] [place] [facility] [address] [id number], [place] [address] Sep, [facility] [place] [facility] [address] [id number], [place] [address] Sep, [facility] [place] [facility] [address] [id number], [place] [address] Sep, [facility] [place] [facility] [address] [id number], [place] [address] Sep, [facility] [place] [facility] [address] [id number], [place] [address] Aug, [facility] [place] [facility] [address] [id number], [place] [address] Aug, [facility] [place] [facility] [address] [id number], [place] [address] Aug, [facility] [place] [facility] [address] [facility] [id number], [place] [address] Jul, [facility] [place] [facility] [address] [id number] [place] [address] Jun, [facility] [place] [facility] [address] [id number] [place] [address] Jun, [facility] [place] [facility] [address] [id number] [place] [address] May, [facility] [place] [facility] [address] [id number] [place] [address] Apr, [facility] [place] [facility] [address] [id number] [place] [address] March, [facility] [place] [facility] [address] [id number] [place] [address] Jan, [facility] [place] [facility] [address] [id number] [place] [address] 29 Dec, 2011 [facility] [place] [facility] [address] [id number] [place] [address] Dec, [facility] [place] [facility] [address] [id number] [place] [address] Nov, [facility] [place] [facility] [address] [id number] [place] [address] Oct, [facility] [place] [facility] [address] [id number] [place] [address] Oct, [facility] [place] [facility] [address] [id number] [place] [address] Sep, [facility] [place] [facility] [address] [id number] [place] [address] Aug, [facility] [place] [facility] [address] [id number] [place] [address] Dec, [facility] [place] [facility] [address] [id number] [place] [address] Oct, [facility] [place] [facility] [address] [id number] [place] [address] Oct, [facility] [address] [facility] [id number], [place] [address] Oct, [facility] [address] [facility] [id number], [place] [address] Jun, [facility] [id number], [place] [address] Jun, [facility] [id number], [place] [address] Oct, [facility] [id number], [place] [address] Sep, [facility] [id number], [place] [address] Sep, [facility] [id number], [place] [address] Sep, [facility] [id number], [place] [address] Aug, [facility] [id number], [place] [address] Dec, IMMUNIZATIONS No Known Immunizations SOCIAL HISTORY Never Assessed REASON FOR VISIT Follow-up Depression/Anxiety PLAN OF CARE Activity Details Follow Up Next available Reason: Follow-up VITAL SIGNS MEDICATIONS Unknown Medications RESULTS No Results PROCEDURES Procedure Date Ordered Result Body Site Psychotherapy, patient &/family, 45 minutes, established patient Dec 29, 2017 INSTRUCTIONS MEDICATIONS ADMINISTERED No Known Medications MEDICAL (GENERAL) HISTORY Type Description Date Medical History GERD Medical History anxiety Medical History depression Surgical History C- section x 2 Surgical History tubal ligation Surgical History hysterectomy 2009 Surgical History cholecystectomy 2014 Surgical History Fibroid removal Hospitalization History inpatient treatment Mirtha SMITH 21 years old Hospitalization History surgeries
--- OUTSIDE RECORDS SUMMARY | 2019-01-13 21:59 | XMS REPORT ---
Author Author GRETCHEN ROTHMAN [facility] Address [address] [place] [address] Care Team Providers Care Aix Administrator Name Role Phone GRETCHEN ROTHMAN Unavailable PROBLEMS Type Condition ICD9-CM Code TZG88-KC Code Onset Dates Condition Status SNOMED Code Problem BMI 35.0-35.9,adult Z68.35 Active 812532760 Problem Tobacco use Z72.0 Active 225265002 Problem Chronic fatigue R53.82 Active 86863815 Problem Prediabetes R73.03 Active 101631333 Problem Chronic reflux esophagitis K21.0 Active 517969595 Problem Carpal tunnel syndrome of right wrist G56.01 Active 04313678 Problem PTSD (post-traumatic stress disorder) F43.10 Active 10415917 Problem 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 47058866 Problem Elevated lymphocytes D72.820 Active 44870281 Problem WILMA (generalized anxiety disorder) F41.1 Active 70630902 Problem Severe episode of recurrent major depressive disorder, without psychotic features F33.2 Active 93151067 ALLERGIES No Information ENCOUNTERS Encounter Location Date Diagnosis [place] [id number] [place] [address] 66949- 6830 Apr, [facility] [address] [id number] [place] [address] 18316- 8743 Apr, [facility] [id number] [place] [address] 10465- 5944 March, [facility] [id number] [place] [address] 59592- 4566 March, Severe episode of recurrent major depressive disorder, without psychotic features F33.2 ; WILMA (generalized anxiety disorder) F41.1 and PTSD (post-traumatic stress disorder) F43.10 [facility] [id number] [place] [address] 52994- 9038 March, [place] [address] [address] 6270 Jan, Severe episode of recurrent major depressive disorder, without psychotic features F33.2 ; WILMA (generalized anxiety disorder) F41.1 and PTSD (post-traumatic stress disorder) F43.10 [place] [address] [place] [address] 98335- 7109 Jan, Carpal tunnel syndrome of right wrist G56.01 [place] [address] [place] [id number] [place] [address] 79917- 1531 Jan, Severe episode of recurrent major depressive disorder, without psychotic features F33.2 ; WILMA (generalized anxiety disorder) F41.1 and PTSD (post-traumatic stress disorder) F43.10 [place] [address] [address] 7492 Dec, Severe episode of recurrent major depressive disorder, without psychotic features F33.2 ; WILMA (generalized anxiety disorder) F41.1 and PTSD (post-traumatic stress disorder) F43.10 [place] [address] [place] [address] 48053- 4474 Dec, Severe episode of recurrent major depressive disorder, without psychotic features F33.2 ; WILMA (generalized anxiety disorder) F41.1 and PTSD (post-traumatic stress disorder) F43.10 [place] [address] [place] [address] 09020- 1099 Dec, Severe episode of recurrent major depressive disorder, without psychotic features F33.2 ; WILMA (generalized anxiety disorder) F41.1 and PTSD (post-traumatic stress disorder) F43.10 [place] [address] [place] [address] 83316- 5110 Dec, Severe episode of recurrent major depressive disorder, without psychotic features F33.2 [place] [address] [address] 6409 Dec, Severe episode of recurrent major depressive disorder, without psychotic features F33.2 ; WILMA (generalized anxiety disorder) F41.1 and PTSD (post-traumatic stress disorder) F43.10 [place] [address] [place] [id number]- 7211 Dec, Severe episode of recurrent major depressive disorder, without psychotic features F33.2 ; WILMA (generalized anxiety disorder) F41.1 and PTSD (post-traumatic stress disorder) F43.10 [place] [address] 728848- 1067 Dec, Severe episode of recurrent major depressive disorder, without psychotic features F33.2 and Anxiety state, unspecified F41.[address] 70839- 1634 Dec, Severe episode of recurrent major depressive disorder, without psychotic features F33.2 and Anxiety state, unspecified F41.[address] 27303- 1351 Nov, Depression, major, recurrent, moderate F33.1 and Anxiety state, unspecified F41.[address] 68673- 3697 Nov, Depression, major, recurrent, moderate F33.1 and Anxiety state, unspecified F41.1 [place] [id number] [place] [address] 46495- 0234 Oct, Depression, major, recurrent, moderate F33.1 and Anxiety state, unspecified F41.1 [place] [address] [place] [id number] [place] [address] 22991- 0715 Oct, Depression, major, recurrent, moderate F33.1 and Post- cholecystectomy syndrome K91.5 [place] [id number]- 1667 Oct, Depression, major, recurrent, moderate F33.1 and Anxiety state, unspecified F41.1 [place] [address]- 8662 Sep, Depression, major, recurrent, moderate F33.1 and Anxiety state, unspecified F41.1 [place] [address] [id number] [place] [address]- 571 Sep, Depression, major, recurrent, moderate F33.1 and Anxiety state, unspecified F41.1 [place] [address] [place] [id number] [place] [address] Sep, Depression, major, recurrent, moderate F33.1 and Anxiety state, unspecified F41.1 [place] [address] [place] [address] [id number] [place] [address] 750 Sep, Diarrhea, unspecified type R19.7 [place] [id number] [place]- [address] Aug, Depression, major, recurrent, moderate F33.1 and Anxiety state, unspecified F41.1 [place] [address] [place] [id number] [place] 3271 Aug, Depression, major, recurrent, moderate F33.1 and Anxiety state, unspecified F41.1 [place] [address] [address] [id number] [place] 4349 Jul, Depression, major, recurrent, moderate F33.1 and Anxiety state, unspecified F41.1 [place] [address] [id number] [place] [address]67 Jun, Depression, major, recurrent, moderate F33.1 and Anxiety state, unspecified F41.1 [place] [address] [place] [address] [place] [address] [address] Jun, Generalized abdominal pain R10.84 ; Diarrhea, unspecified type R19.7 ; Acute cystitis without hematuria N30.00 ; Abdominal bloating R14.0 and Elevated blood pressure reading R03.0 [place] [address] [place] [id number] [place] [address] 75182- 8330 Jun, Depression, major, recurrent, moderate F33.1 and Anxiety state, unspecified F41.1 [place] [address] [place] [id number] [place] [address] 26438- 7066 May, Depression, major, recurrent, moderate F33.1 and Anxiety state, unspecified F41.1 [place] [address] [place] [id number] [place] [address] 77498- 1502 May, Elevated lymphocytes D72.820 [place] [address] [place] [id number] [place] [address] 39124- 0777 May, Elevated lymphocytes D72.820 [place] [address] 59855- 6444 May, BMI 35.0-35.9,adult Z68.35 ; Other fatigue R53.83 ; Pelvic pain R10.2 ; Tobacco use Z72.0 and Chronic reflux esophagitis K21.0 [place] [address] [place] [id number] [place] [address] 08717- 9036 Apr, [place] [address] [place] [id number] [place] [address] 95847- 6354 Apr, Depression, major, recurrent, moderate F33.1 and Anxiety state, unspecified F41.1 [place] [address] [place] [id number] [place] [address] 11316- 0403 Apr, Depression, major, recurrent, moderate F33.1 and Anxiety state, unspecified F41.1 [place] [address] [place] [id number] [place] [address] 34362- 0239 Apr, [place] [address] [place] [id number] [place] [address] 07754- 2286 March, Major depressive disorder, recurrent episode, mild F33.0 and Anxiety state, unspecified F41.1 [facility] [address] [place] [address] 68928 -4071 March, Sore throat J02.9 and Submandibular lymphadenopathy R59.0 [place] [address], [place] [address]- 4613 Dec, Major depressive disorder, recurrent episode, mild F33.0 and Anxiety state, unspecified F41.1 [place] [address] [place] [address] 27821- 2194 Dec, Major depressive disorder, recurrent episode, mild F33.0 and Anxiety state, unspecified F41.1 [place] [address] [place] [id number] [place] [address] 20377- 7154 Dec, Major depressive disorder, recurrent episode, mild F33.0 and Anxiety state, unspecified F41.1 [place] [address] [place] [id number] [place] [address] 29031- 8656 Sep, Major depressive disorder, recurrent episode, mild F33.0 and Anxiety state, unspecified F41.1 [place] [address] [place] [id number] [place] [address] 49838- 1091 Sep, Major depressive disorder, recurrent episode, moderate F33.1 and Anxiety state, unspecified F41.1 [place] [address] [place] [id number] [place] [address] 13216- 5419 Aug, Major depressive disorder, recurrent episode, moderate F33.1 and Anxiety state, unspecified F41.1 [place] [address] [place] [address] 34382- 4424 Aug, Major depressive disorder, recurrent episode, moderate F33.1 and Anxiety state, unspecified F41.1 [place] [address], [place] [address]- 1807 Jul, Major depressive disorder, recurrent episode, moderate F33.1 and Anxiety state, unspecified F41.1 [place] [address] [place] [address] 97261- 8858 Jul, Major depressive disorder, recurrent episode, moderate F33.1 and Anxiety state, unspecified F41.1 [place] [address] [place] [id number] [place] [address] 48568- 7937 Jun, Major depressive disorder, recurrent episode, moderate F33.1 and Anxiety state, unspecified F41.1 [place] [address] [place] [id number] [place] [address] 82818- 1482 Jun, Major depressive disorder, recurrent episode, moderate F33.1 and Anxiety state, unspecified F41.1 [place] [address] [place] [id number] [place] [address] 60568- 3620 May, Major depressive disorder, recurrent episode, moderate F33.1 and Anxiety state, unspecified F41.1 [place] [address] [place] [id number] [place] [address] 02601- 6860 Apr, Major depressive disorder, recurrent episode, moderate F33.1 and Anxiety state, unspecified F41.1 [place] [address] [place] [id number] [place] [address] 01687- 9300 Apr, Major depressive disorder, recurrent episode, moderate F33.1 and Anxiety state, unspecified F41.1 [place] [address] [place] [id number] [place] [address] 68347- 3928 Dec, Major depressive disorder, recurrent episode, moderate F33.1 and Anxiety state, unspecified F41.1 [place] [address] [place] [id number] [place] [address] 31161- 8176 Dec, Major depressive disorder, recurrent episode, moderate F33.1 and Anxiety state, unspecified F41.1 [facility] [place] [address] [place] [address] 10316 -5844 Dec, Pharyngitis J02.9 and Acute frontal sinusitis J01.10 [place] [address] [place] [id number] [place] [address] 91598- 6117 Nov, Bilateral occipital neuralgia M54.81 and Neck muscle spasm M62.838 [place] [address] [place] [id number] [place] [address] 12327- 0197 Nov, Major depressive disorder, recurrent episode, moderate F33.1 and Anxiety state, unspecified F41.1 [facility] [address] [address]- 9725 Sep, Major depressive disorder, recurrent episode, moderate F33.1 and Anxiety state, unspecified F41.1 [facility] [address] [address]- 2195 Aug, Major depressive disorder, recurrent episode, moderate F33.1 and Anxiety state, unspecified F41.1 [facility] [id number] 9374 Jul, Abdominal pain 789.00 ; Hematochezia 578.1 and Weight loss 783.21 [facility] [address] [address]- 9464 May, [facility] [id number] [place] [address] 81904- 0131 March, [facility] [address] [place] [address] 27854- 8146 March, [facility] [address] [id number] [place] [address] 90089- 0908 Jan, [facility] [address] [address]- 0237 Jan, [facility] [id number] [place] [address] 20101- 8781 Dec, [facility] [address], [place] [address]- 3630 Dec, [facility] [id number] 3029 Dec, [facility] [address], [place] [address]- 2686 Dec, [facility] [id number] [place] [address] 61712- 0326 Dec, 2014 [facility] [place] [facility] [address] [id number] [place] [address]- 8055 Dec, 2014 [facility] [place] [facility] [address] [id number] [place] [address]- 4576 Jul, 2013 [facility] [place] [facility] [address] [id number] [place] [address] 2543 Jul, 2013 [facility] [place] [facility] [address] [id number] [place] [address]- 1930 Jul, 2013 [facility] [place] [facility] [address] [id number] [place] [address]- 4984 Jul, 2013 [facility] [place] [facility] [address] [id number] [place] [address]- 4748 Jul, 2013 [facility] [place] [facility] [address] [id number] [place] [address]- 3592 Jul, 2013 [facility] [place] [facility] [address] [id number] [place] [address]- 4729 Jul, 2013 [facility] [place] [facility] [address] [id number] [place] [address]- 1103 Jul, 2013 [facility] [place] [facility] [address] [id number] [place] [address]- 3693 Jul, 2013 [facility] [place] [facility] [address] [id number] [address]- 9247 Jul, 2013 [facility] [place] [facility] [address] [id number], [place] [address]- 1898 Jul, 2013 [facility] [place] [facility] [address] [id number] [place] [address]- 2543 Jul, 2013 [facility] [place] [facility] [address] [id number], [place] [address]- 1620 May, [facility] [place] [facility] [address] [id number], [place] [address]- 8197 May, [facility] [place] [facility] [address] [id number] [place] [address]- 8622 Apr, [facility] [address] [id number] [place] [address]- 7311 Apr, [facility] [place] [facility] [address] [id number] [place] [address]- 1216 Apr, [facility] [address] [id number] [place] [address]- 9117 Apr, [facility] [place] [facility] [address] [id number] [place] [address]- 8115 March, [facility] [place] [facility] [address] [id number] [place] [address]- 7472 March, [facility] [place] [facility] [address] [id number] [place] [address]- 0577 Jan, [facility] [place] [facility] [address] [id number] [place] [address]- 2615 Jan, [facility] [address] [id number] [place] [address]- 2824 Jan, [facility] [place] [facility] [address] [id number] [place] [address]- 0858 Jan, [facility] [address] [id number] [place] [address]- 2825 Dec, [facility] [place] [facility] [address] [id number] [place] [address]- 8247 25 Dec, 2013 [facility] [place] [facility] [address] [id number] [place] [address]- 6886 18 Dec, 2013 [facility] [place] [facility] [address] [id number] [place] [address]- 0353 18 Dec, 2013 [facility] [place] [facility] [address] [id number] [place] [address]- 0320 15 Dec, 2013 [facility] [place] [facility] [address] [id number] [place] [address]- 5889 14 Dec, 2013 [facility] [place] [facility] [address] [id number] [place] [address]- 9439 13 Dec, 2013 [facility] [place] [facility] [address] [id number] [place] [address]- 0235 13 Dec, 2013 [facility] [place] [facility] [address] [id number] [place] [address]- 0854 Dec, [facility] [place] [facility] [address] [id number] [place] [address]- 9683 Dec, [facility] [place] [facility] [address] [id number] [place] [address]- 5112 Dec, [facility] [place] [facility] [address] [id number] [place] [address]- 1782 Dec, [facility] [place] [facility] [address] [id number] [place] [address]- 7257 Dec, [facility] [place] [facility] [address] [id number] [place] [address]- 4262 Dec, [facility] [place] [facility] [address] [id number] [place] [address]- 1290 Dec, [facility] [place] [facility] [address] [id number] [place] [address]- 3998 Dec, [facility] [place] [facility] [address] [id number] [place] [address]- 9993 Dec, [facility] [place] [facility] [address] [id number] [place] [address]- 5099 Dec, [facility] [place] [facility] [address] [id number] [place] [address]- 2217 Nov, [facility] [place] [facility] [address] [id number] [place] [address]- 5273 Nov, [facility] [place] [facility] [address] [id number] [place] [address]- 6327 Nov, [facility] [place] [facility] [address] [id number] [place] [address]- 2987 Nov, [facility] [address] [id number] [place] [address]- 8978 Nov, [facility] [place] [facility] [address] [id number] [place] [address]- 1871 15 Nov, 2013 [facility] [address] [id number] [place] [address]- 0340 Nov, [facility] [place] [facility] [address] [id number] [place] [address]- 1829 Nov, [facility] [address] [id number] [place] 2064 Oct, [facility] [place] [facility] [address] [id number] [place] [address]- 7745 Oct, [facility] [address] [id number] [place] [address]- 5403 Oct, [facility] [place] [facility] [address] [id number] [place] [address]- 3765 Oct, [facility] [place] [facility] [address] [id number] [place] [address]- 6758 Oct, [facility] [place] [facility] [address] [facility] [id number] [place] [address]- 2226 Oct, [facility] [place] [facility] [address] [id number] [place] [address]- 2678 Sep, [facility] [place] [facility] [address] [id number] [place] [address]- 0546 Sep, [facility] [place] [facility] [address] [id number] [place] [address]- 9627 Sep, [facility] [place] [facility] [address] [id number] [place] [address]- 7309 Sep, [facility] [place] [facility] [address] [id number] [place] [address]- 8045 Aug, [facility] [place] [facility] [address] [id number] [place] [address]- 5050 Aug, [facility] [place] [facility] [address] [id number] [place] [address]- 4026 Aug, [facility] [place] [facility] [address] [id number] [place] [address]- 5612 Aug, [facility] [place] [facility] [address] [id number] [place] [address]- 6803 Jul, [facility] [place] [facility] [address] [id number] [place] [address]- 9064 Jul, [facility] [place] [facility] [address] [id number] [place] [address]- 7923 Jun, [facility] [place] [facility] [address] [id number] [place] [address]- 2526 Jun, [facility] [place] [facility] [address] [id number] [place] [address]- 6338 Apr, [facility] [place] [facility] [address] [id number] [place] [address]- 2685 Apr, [facility] [place] [facility] [address] [id number] [place] [address]- 5681 Apr, [facility] [place] [facility] [address] [id number] [place] [address]- 2930 Apr, [facility] [place] [facility] [address] [id number] [place] [address]- 1509 March, [facility] [place] [facility] [address] [id number] [place] [address]- 5807 March, [facility] [place] [facility] [address] [id number] [place] [address]- 2725 March, [facility] [place] [facility] [address] [id number] [place] [address]- 1875 Jan, [facility] [place] [facility] [address] [id number] [place] [address]- 3066 Jan, [facility] [address] [id number] [place] [address]- 1764 Dec, [facility] [address] [id number] [place] [address]- 6136 Dec, [facility] [address] [id number] [place] [address] 2546 Dec, [facility] [address] [id number] [place] [address]- 4828 Dec, [facility] [address] [id number] [place] [address] Dec, [facility] [address] [id number] [place] [address] Dec, [facility] [address] [id number] [place] [address] Nov, [facility] [address] [id number] [place] [address] Nov, [facility] [address] [id number] [place] [address] Oct, [facility] [address] [id number] [place] [address] Oct, [facility] [address] [id number] [place] [address] Oct, [facility] [place] [facility] [address] [id number] [place] [address] Oct, [facility] [place] [facility] [address] [id number] [place] [address] Oct, [facility] [place] [facility] [address] [id number] [place] [address] Oct, [facility] [place] [facility] [address] [id number] [place] [address] Oct, [facility] [place] [facility] [address] [id number] [place] [address] Oct, [facility] [place] [facility] [address] [id number] [place] [address] Oct, [facility] [place] [facility] [address] [id number] [place] [address] Oct, [facility] [place] [facility] [address] [id number] [place] [address] Sep, [facility] [place] [facility] [address] [id number] [place] [address] Sep, [facility] [place] [facility] [address] [id number] [place] [address] Sep, [facility] [place] [facility] [address] [id number] [place] [address] Sep, [facility] [place] [facility] [address] [id number] [place] [address] Aug, [facility] [place] [facility] [address] [id number] [place] [address] Aug, [facility] [place] [facility] [address] [id number] [place] [address] Aug, [facility] [place] [facility] [address] [id number] [place] [address] Jul, [facility] [place] [facility] [address] [id number] [place] [address] Jun, [facility] [place] [facility] [address] [id number] [place] [address] Jun, [facility] [place] [facility] [address] [id number] [place] [address] May, [facility] [place] [facility] [address] [id number] [place] [address] Apr, [facility] [place] [facility] [address] [id number] [place] [address] March, [facility] [address] [id number] [place] [address] Jan, [facility] [place] [facility] [address] [id number] [place] [address] 29 Dec, 2011 [facility] [place] [facility] [address] [id number] [place] [address] 15 Dec, 2011 [facility] [place] [facility] [address] [id number] [place] [address] Nov, [facility] [place] [facility] [address] [id number] [place] [address] Oct, [facility] [place] [facility] [address] [id number] [place] [address] Oct, [facility] [place] [facility] [address] [id number] [place] [address] Sep, [facility] [place] [facility] [address] [id number] [place] [address] Aug, [facility] [place] [facility] [address] [id number] [place] [address] Dec, [facility] [place] [facility] [address] [id number] [place] [address] Oct, [facility] [place] [facility] [address] [id number] [place] [address] Oct, [facility] [place] [facility] [address] [id number] [place] [address] Oct, [facility] [place] [facility] [address] [id number] [place] [address] Jun, [facility] [place] [facility] [address] [id number] [place] [address] Jun, [facility] [place] [facility] [address] [id number] [place] [address] Oct, [facility] [place] [facility] [address] [facility] [id number] [place] [address] Sep, [facility] [address] [facility] [id number], [place] [address] Sep, [facility] [address] [facility] [id number], [place] [address] Sep, [facility] [address] [facility] [id number], [place] [address] Aug, [facility] [address] [facility] [id number], [place] [address] Dec, IMMUNIZATIONS No Known Immunizations SOCIAL HISTORY Never Assessed REASON FOR VISIT Repository Medication PLAN OF CARE VITAL SIGNS MEDICATIONS Medication Instructions Dosage Frequency Start Date [...]
--- OUTSIDE RECORDS SUMMARY | 2019-01-13 21:59 | XMS REPORT ---
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 Role Phone INGRISJUAN M LEÓNA Unavailable PROBLEMS Type Condition ICD9-CM Code IBN51-RD Code Onset Dates Condition Status SNOMED Code Problem BMI 35.0-35.9,adult Z68.35 Active 811136236 Problem Tobacco use Z72.0 Active 021523268 Problem Chronic fatigue R53.82 Active 02759755 Problem Prediabetes R73.03 Active 224172140 Problem Chronic reflux esophagitis K21.0 Active 345258605 Problem Carpal tunnel syndrome of right wrist G56.01 Active 40242012 Problem PTSD (post-traumatic stress disorder) F43.10 Active 38298456 Problem 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 05716531 Problem Elevated lymphocytes D72.820 Active 19034188 Problem WILMA (generalized anxiety disorder) F41.1 Active 56074546 Problem Severe episode of recurrent major depressive disorder, without psychotic features F33.2 Active 69494009 ALLERGIES No Information ENCOUNTERS Encounter Location Date Diagnosis [facility] [id number] [place] [address] 77971- 8909 Jun, [facility] [id number] [place] [address] 10451- 9828 Jun, [facility] [id number] [place] [address] 03783- 8457 May, [facility] [id number] [place] [address] 29506- 4716 Apr, Severe episode of recurrent major depressive disorder, without psychotic features F33.2 ; WILMA (generalized anxiety disorder) F41.1 and PTSD (post-traumatic stress disorder) F43.10 [facility] [id number] [place] [address] 12627- 1810 March, Severe episode of recurrent major depressive disorder, without psychotic features F33.2 ; WILMA (generalized anxiety disorder) F41.1 and PTSD (post-traumatic stress disorder) F43.10 [place] [id number] [place] [address] 85103- 6878 March, Severe episode of recurrent major depressive disorder, without psychotic features F33.2 ; WILMA (generalized anxiety disorder) F41.1 and PTSD (post-traumatic stress disorder) F43.10 [facility] [id number] [place] [address] 17308- 1650 March, [facility] [id number] [place] [address] 62093- 3854 Jan, Severe episode of recurrent major depressive disorder, without psychotic features F33.2 ; WILMA (generalized anxiety disorder) F41.1 and PTSD (post-traumatic stress disorder) F43.10 [facility] [id number] [place] [address] 73321- 7868 Jan, Carpal tunnel syndrome of right wrist G56.01 [facility] [id number] [place] [address] 41863- 4289 Jan, Severe episode of recurrent major depressive disorder, without psychotic features F33.2 ; WILMA (generalized anxiety disorder) F41.1 and PTSD (post-traumatic stress disorder) F43.10 [facility] [id number] [place] [address] 22463- 5714 Dec, Severe episode of recurrent major depressive disorder, without psychotic features F33.2 ; WILMA (generalized anxiety disorder) F41.1 and PTSD (post-traumatic stress disorder) F43.10 [facility] [facility] [id number] [place] [address] 66203- 0863 Dec, Severe episode of recurrent major depressive disorder, without psychotic features F33.2 ; WILMA (generalized anxiety disorder) F41.1 and PTSD (post-traumatic stress disorder) F43.10 [facility] [id number] [place] [address]- [address]16 Dec, Severe episode of recurrent major depressive disorder, without psychotic features F33.2 ; WILMA (generalized anxiety disorder) F41.1 and PTSD (post-traumatic stress disorder) F43.10 [facility] [id number] [place] [address] 06880- 3691 Dec, Severe episode of recurrent major depressive disorder, without psychotic features F33.2 [facility] [id number] [place] [address] 771787- 5238 Dec, Severe episode of recurrent major depressive disorder, without psychotic features F33.2 ; WILMA (generalized anxiety disorder) F41.1 and PTSD (post-traumatic stress disorder) F43.10 [facility] [id number] [place] [address] 65428- 8646 Dec, Severe episode of recurrent major depressive disorder, without psychotic features F33.2 ; WILMA (generalized anxiety disorder) F41.1 and PTSD (post-traumatic stress disorder) F43.10 [facility] [id number] [place] [address] 24432- 0909 Dec, Severe episode of recurrent major depressive disorder, without 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 and Anxiety state, unspecified F41.1 [place] [address] [place] [address] 53173- 3831 Dec, Severe episode of recurrent major depressive disorder, without 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 and Anxiety state, unspecified F41.1 [place] [id number] [place] [address] 22800- 6113 Nov, Depression, major, recurrent, moderate F33.1 and Anxiety state, unspecified F41.1 [facility] [id number] [place] [address] 86708- 4424 Nov, Depression, major, recurrent, moderate F33.1 and Anxiety state, unspecified F41.1 [facility] [id number] [place] [address] 71714- 7927 Oct, Depression, major, recurrent, moderate F33.1 and Anxiety state, unspecified F41.1 [facility] [id number] [place] [address] 54362- 1011 Oct, Depression, major, recurrent, moderate F33.1 and Post- cholecystectomy syndrome K91.5 [place] [facility] [id number] [place] [address] 02292- 6037 Oct, Depression, major, recurrent, moderate F33.1 and Anxiety state, unspecified F41.1 [facility] [id number] [place] [address] 88546- 7772 Sep, Depression, major, recurrent, moderate F33.1 and Anxiety state, unspecified F41.1 [facility] [id number] [place] [address] 14475- 7114 Sep, Depression, major, recurrent, moderate F33.1 and Anxiety state, unspecified F41.1 [facility] [id number] [place] [address] 03960- 8995 Sep, Depression, major, recurrent, moderate F33.1 and Anxiety state, unspecified F41.1 [facility] [id number] [place] [address] 50272- 7844 Sep, Diarrhea, unspecified type R19.7 [facility] [id number] [place] [address] 70567- 6316 Aug, Depression, major, recurrent, moderate F33.1 and Anxiety state, unspecified F41.1 [facility] [id number] [place] [address] 76651- 6784 Aug, Depression, major, recurrent, moderate F33.1 and Anxiety state, unspecified F41.1 [facility] [facility] [id number] [place] [address]- 1667 Jul, Depression, major, recurrent, moderate F33.1 and Anxiety state, unspecified F41.1 [place] [address] [place] [address]- 7608 Jun, Depression, major, recurrent, moderate F33.1 and Anxiety state, unspecified F41.1 [facility] [id number] [place] [address] 70720- 5538 Jun, Generalized abdominal pain R10.84 ; Diarrhea, unspecified type R19.7 ; Acute cystitis without hematuria N30.00 ; Abdominal bloating R14.0 and Elevated blood pressure reading R03.0 [place] [id number] [place] [address] 69329- 4013 Jun, Depression, major, recurrent, moderate F33.1 and Anxiety state, unspecified F41.1 [place] [address] 88905- 5579 May, Depression, major, recurrent, moderate F33.1 and Anxiety state, unspecified F41.1 [place] [address] 38225- 7286 May, Elevated lymphocytes D72.820 [place] [address] 33324- 4985 May, Elevated lymphocytes D72.820 [place] [id number] [place] [address] 28277- 9964 May, BMI 35.0-35.9,adult Z68.35 ; Other fatigue R53.83 ; Pelvic pain R10.2 ; Tobacco use Z72.0 and Chronic reflux esophagitis K21.0 [place] [facility] [id number] [place] [address] 56810- 9386 Apr, [address] 31088- 8150 Apr, Depression, major, recurrent, moderate F33.1 and Anxiety state, unspecified F41.1 [place] [facility] [id number] [place] [address] 54398- 1520 Apr, Depression, major, recurrent, moderate F33.1 and Anxiety state, unspecified F41.1 [facility] [address] [address]- 6333 Apr, [place] [id number] [place] [address] 94690- 9345 March, Major depressive disorder, recurrent episode, mild F33.0 and Anxiety state, unspecified F41.1 [facility] [id number] [place] [address] 05278 -6999 March, Sore throat J02.9 and Submandibular lymphadenopathy R59.0 [place] [id number] [place] [address] 13614- 4899 Dec, Major depressive disorder, recurrent episode, mild F33.0 and Anxiety state, unspecified F41.1 [place] [id number] [place] [address] 00835- 1738 Dec, Major depressive disorder, recurrent episode, mild F33.0 and Anxiety state, unspecified F41.1 [place] [facility] [id number] [place] [address] 64532- 8057 Dec, Major depressive disorder, recurrent episode, mild F33.0 and Anxiety state, unspecified F41.1 [place] [address] [place] [address] 85504- 0453 Sep, Major depressive disorder, recurrent episode, mild F33.0 and Anxiety state, unspecified F41.1 [place] [address] [place] [address] 75479- 8264 Sep, Major depressive disorder, recurrent episode, moderate F33.1 and Anxiety state, unspecified F41.1 [place] [facility] [id number] [place] [address] 32020- 5612 Aug, Major depressive disorder, recurrent episode, moderate F33.1 and Anxiety state, unspecified F41.1 [place] [facility] [id number] [place] [address] 44286- 4036 Aug, Major depressive disorder, recurrent episode, moderate F33.1 and Anxiety state, unspecified F41.1 [place] [address] [address]- 5499 Jul, Major depressive disorder, recurrent episode, moderate F33.1 and Anxiety state, unspecified F41.1 [place] [address] [address]- 9738 Jul, Major depressive disorder, recurrent episode, moderate F33.1 and Anxiety state, unspecified F41.1 [place] [id number] [place] [address] 19238- 8280 Jun, Major depressive disorder, recurrent episode, moderate F33.1 and Anxiety state, unspecified F41.1 [place] [id number] [place] [address] 91023- 1029 Jun, Major depressive disorder, recurrent episode, moderate F33.1 and Anxiety state, unspecified F41.1 [place] [address] [place] [address] 37601- 2500 May, Major depressive disorder, recurrent episode, moderate F33.1 and Anxiety state, unspecified F41.1 [place] [address] [address]- 7534 Apr, Major depressive disorder, recurrent episode, moderate F33.1 and Anxiety state, unspecified F41.1 [place] [address] [place] [address] 28804- 2063 Apr, Major depressive disorder, recurrent episode, moderate F33.1 and Anxiety state, unspecified F41.1 [place] [address] [place] [address] 08504- 3839 Dec, Major depressive disorder, recurrent episode, moderate F33.1 and Anxiety state, unspecified F41.1 [place] [address] [address]- 9839 Dec, Major depressive disorder, recurrent episode, moderate F33.1 and Anxiety state, unspecified F41.1 [facility] [address] [place] [address] 68836 -9293 Dec, Pharyngitis J02.9 and Acute frontal sinusitis J01.10 [facility] [id number] [place] [address] 95577- 6758 Nov, Bilateral occipital neuralgia M54.81 and Neck muscle spasm M62.838 [facility] [id number] [place] [address] 44109- 8108 Nov, Major depressive disorder, recurrent episode, moderate F33.1 and Anxiety state, unspecified F41.1 [place] [id number] [place] [address] 06170- 5561 Sep, Major depressive disorder, recurrent episode, moderate F33.1 and Anxiety state, unspecified F41.1 [facility] [id number] [place] [address] 75868- 1513 Aug, Major depressive disorder, recurrent episode, moderate F33.1 and Anxiety state, unspecified F41.1 [place] [id number] [place] [address] 43282- 9270 Jul, Abdominal pain 789.00 ; Hematochezia 578.1 and Weight loss 783.21 [place] [id number] [place] [address] 28851- 7013 May, [place] [id number] [place] [address] 36842- 2635 March, [place] [id number] [place] [address] 92536- 8118 March, [place] [id number] [place] [address] 44476- 5051 Jan, [place] [id number] [place] [address] 70071- 2063 Jan, [place] [address] [address] [place] [address]- 2546 Dec, 2014 [facility] [place] [facility] [address] [id number] [place] [address] 2546 Dec, 2014 [facility] [place] [facility] [address] [id number] [place] [address] 2546 Dec, 2014 [facility] [place] [facility] [address] [id number] [place] [address] 2546 Dec, 2014 [facility] [place] [facility] [address] [id number] [place] [address]- 2546 Dec, 2014 [facility] [place] [facility] [address] [id number] [place] [address] 2546 Dec, 2014 [facility] [place] [facility] [address] [facility] [id number] [place] [address]- 2547 Jul, 2013 [facility] [place] [facility] [address] [id number] [place] [address] 2544 Jul, 2013 [facility] [place] [facility] [address] [id number] [place] [address] 2546 Jul, 2013 [facility] [place] [facility] [address] [id number] [place] [address] 2546 Jul, 2013 [facility] [place] [facility] [address] [facility] [id number] [place] [address] 2546 10 Jul, 2013 [facility] [place] [facility] [address] [id number] [place] [address] 2546 10 Jul, 2013 [facility] [place] [facility] [address] [id number] [place] [address] 2546 09 Sep, 2013 [facility] [place] [facility] [address] [id number] [place] [address] 2546 09 Sep, 2013 [facility] [place] [facility] [address] [id number] [place] [address] 2546 09 Sep, 2013 [facility] [place] [facility] [address] [id number] [place] [address]- 2546 Jul, [facility] [place] [facility] [address] [id number] [place] [address]- 0024 Jul, [facility] [place] [facility] [address] [id number] [place] [address]- 3404 Jul, [facility] [place] [facility] [address] [id number] [place] [address]- 8983 May, [facility] [place] [facility] [address] [id number] [place] [address]- 6624 May, [facility] [place] [facility] [address] [id number] [place] [address]- 3917 Apr, [facility] [place] [facility] [address] [id number] [place] [address]- 2420 Apr, [facility] [place] [facility] [address] [id number] [place] [address]- 9957 Apr, [facility] [place] [facility] [address] [id number] [place] [address]- 7078 Apr, [facility] [place] [facility] [address] [id number] [place] [address]- 4538 March, [facility] [place] [facility] [address] [id number] [place] [address]- 0929 March, [facility] [place] [facility] [address] [id number] [place] [address]- 5691 Jan, [facility] [place] [facility] [address] [id number] [address]- 3106 Jan, [facility] [place] [facility] [address] [id number] [place] [address]- 0282 Jan, [facility] [place] [facility] [address] [id number] [place] [address]- 6527 Jan, [facility] [place] [facility] [address] [id number] [place] [address]- 0344 Dec, [facility] [place] [facility] [address] [id number] [place] [address]- 2254 25 Dec, 2013 [facility] [place] [facility] [address] [id number] [place] [address]- 6164 18 Dec, 2013 [facility] [place] [facility] [address] [id number] [place] [address]- 0590 18 Dec, 2013 [facility] [place] [facility] [address] [id number] [place] [address]- 4697 15 Dec, 2013 [facility] [place] [facility] [address] [id number] [place] [address]- 0786 14 Dec, 2013 [facility] [place] [facility] [address] [id number] [place] [address]- 9785 13 Dec, 2013 [facility] [place] [facility] [address] [id number] [place] [address]- 2174 13 Dec, 2013 [facility] [place] [facility] [address] [id number] [place] [address]- 8151 12 Dec, 2013 [facility] [place] [facility] [address] [id number] [place] [address]- 0806 12 Dec, 2013 [facility] [place] [facility] [address] [id number] [place] [address]- 8556 05 Dec, 2013 [facility] [place] [facility] [address] [id number] [place] [address]- 0961 05 Dec, 2013 [facility] [place] [facility] [address] [id number] [place] [address]- 0362 03 Dec, 2013 [facility] [place] [facility] [address] [id number] [place] [address]- 1896 Dec, [facility] [place] [facility] [address] [id number] [place] [address]- 4797 Dec, [facility] [place] [facility] [address] [id number] [place] [address]- 0694 Dec, [facility] [place] [facility] [address] [id number] [place] [address]- 3201 Dec, [facility] [place] [facility] [address] [id number] [place] [address]- 2278 Dec, [facility] [place] [facility] [address] [id number] [place] [address]- 7793 Nov, [facility] [place] [facility] [address] [id number] [place] [address]- 7596 Nov, [facility] [place] [facility] [address] [id number] [place] [address]- 0691 Nov, [facility] [place] [facility] [address] [id number] [place] [address]- 2978 Nov, [facility] [place] [facility] [address] [id number] [place] [address]- 7681 Nov, [facility] [place] [facility] [address] [id number] [place] [address]- 2216 Nov, [facility] [place] [facility] [address] [id number] [place] [address]- 3785 Nov, [facility] [place] [facility] [address] [id number] [place] [address]- 6894 Nov, [facility] [place] [facility] [address] [id number] [place] [address]- 3086 Oct, [facility] [place] [facility] [address] [id number] [address]- 9646 Oct, [facility] [place] [facility] [address] [id number] [place] [address]- 3510 Oct, [facility] [place] [facility] [address] [id number] [place] [address]- 2215 Oct, [facility] [place] [facility] [address] [id number] [place] [address]- 6936 Oct, [facility] [place] [facility] [address] [id number] [place] [address]- 4048 Oct, [facility] [place] [facility] [address] [id number] [place] [address]- 7883 Sep, [facility] [place] [facility] [address] [id number] [place] [address]- 6765 Sep, [facility] [place] [facility] [address] [id number] [place] [address]- 3837 Sep, [facility] [place] [facility] [address] [facility] [id number] [place] [address]- 8133 Sep, [facility] [place] [facility] [address] [id number] [place] [address]- 0055 Aug, [facility] [place] [facility] [address] [id number] [place] [address]- 4596 Aug, [facility] [place] [facility] [address] [id number] [place] [address]- 2496 Aug, [facility] [place] [facility] [address] [facility] [id number] [place] [address]- 0207 Aug, [facility] [place] [facility] [address] [id number] [place] [address]- 1149 Jul, [facility] [place] [facility] [address] [facility] [id number] [place] [address]- 4754 Jul, [facility] [place] [facility] [address] [facility] [id number] [place] [address]- 1468 Jun, [facility] [place] [facility] [address] [id number] [place] [address]- 9777 Jun, [facility] [place] [facility] [address] [id number] [place] [address]- 3466 Apr, [facility] [place] [facility] [address] [id number] [place] [address]- 0104 20 Apr, 2013 [facility] [place] [facility] [address] [facility] [id number] [place] [address]- 6712 15 Apr, 2013 [facility] [place] [facility] [address] [facility] [id number] [place] [address]- 6462 14 Apr, 2013 [facility] [place] [facility] [address] [id number] [place] [address]- 6664 March, [facility] [address] [id number] [place] [address]- 5165 March, [facility] [place] [facility] [address] [id number] [place] [address] 2546 March, [facility] [address] [id number] [place] [address] Jan, [facility] [place] [facility] [address] [id number] [place] [address] Jan, [facility] [address] [id number] [place] [address] Dec, [facility] [address] [id number] [place] [address] Dec, [facility] [address] [id number] [place] [address] Dec, [facility] [address] [id number] [place] [address] Dec, [facility] [address] [id number] [place] [address] Dec, [facility] [address] [id number] [place] [address] Dec, [facility] [address] [id number] [place] [address] Nov, [facility] [address] [id number] [place] [address] Nov, [facility] [place] [facility] [address] [id number] [place] [address] Oct, [facility] [place] [facility] [address] [id number] [place] [address] Oct, [facility] [place] [facility] [address] [id number] [place] [address] Oct, [facility] [place] [facility] [address] [id number] [place] [address] Oct, [facility] [place] [facility] [address] [id number] [place] [address] Oct, [facility] [place] [facility] [address] [facility] [id number] [place] [address] Oct, [facility] [place] [facility] [address] [id number] [place] [address] Oct, [facility] [place] [facility] [address] [id number] [place] [address] Oct, [facility] [place] [facility] [address] [facility] [id number] [place] [address] Oct, [facility] [place] [facility] [address] [facility] [id number] [place] [address] Oct, [facility] [place] [facility] [address] [id number] [place] [address] Sep, [facility] [place] [facility] [address] [id number] [place] [address] Sep, [facility] [place] [facility] [address] [facility] [id number] [place] [address] Sep, [facility] [place] [facility] [address] [id number] [place] [address] Sep, [facility] [place] [facility] [address] [id number] [place] [address] Aug, [facility] [place] [facility] [address] [id number] [place] [address] Aug, [facility] [place] [facility] [address] [facility] [id number] [place] [address] Aug, [facility] [place] [facility] [address] [facility] [id number] [place] [address] Jul, [facility] [place] [facility] [address] [id number] [place] [address] Jun, [facility] [address] [id number] [place] [address] Jun, [facility] [place] [facility] [address] [id number] [place] [address] May, [facility] [address] [id number] [place] [address] Apr, [facility] [place] [facility] [address] [id number] [place] [address] March, [facility] [address] [id number] [place] [address] Jan, [facility] [place] [facility] [address] [id number] [place] [address] Dec, [facility] [address] [id number] [place] [address] Dec, [facility] [address] [id number] [place] [address] Nov, [facility] [address] [id number] [place] [address] Oct, [facility] [address] [id number] [place] [address] Oct, [facility] [place] [facility] [address] [id number] [place] [address] Sep, [facility] [address] [id number] [place] [address] Aug, [facility] [place] [facility] [address] [id number] [place] [address] 17 Dec, 2010 [facility] [place] [facility] [address] [id number] [place] [address] Oct, [facility] [place] [facility] [address] [id number] [place] [address] Oct, [facility] [address] [facility] [id number] [place] [address] Oct, [facility] [address] [facility] [id number] [place] [address] Jun, [facility] [address] [facility] [id number] [place] [address] Jun, [facility] [address] [facility] [id number] [place] [address] Oct, [facility] [address] [facility] [id number] [place] [address] Sep, [facility] [address] [facility] [id number] [place] [address] Sep, [facility] [id number] [place] [address] Sep, [facility] [address] [id number] [place] [address] Aug, [facility] [address] [id number] [place] [address] Dec, IMMUNIZATIONS No Known Immunizations SOCIAL HISTORY Never Assessed REASON FOR VISIT PALS-cymbalta PLAN OF CARE VITAL SIGNS MEDICATIONS Medication Instructions Dosage Frequency Start Date End Date Duration Status Cymbalta 30 MG Orally every morning 3 capsule Oct, 90 days Active RESULTS No Results PROCEDURES [...]
--- OUTSIDE RECORDS SUMMARY | 2019-01-13 22:00 | XMS REPORT ---
Author Author FIDEL WESTFALL [facility] Address [address] [place] [address] Care Team Providers Care Heating Unit Mechanic Name Role Phone FIDEL WESTFALL Unavailable PROBLEMS Type Condition ICD9-CM Code [id number] Code Onset Dates Condition Status SNOMED Code Problem Chronic reflux esophagitis K21.0 Active 250400002 Problem Prediabetes R73.03 Active 805673435 Problem Elevated lymphocytes D72.820 Active 75260055 Problem Tobacco use Z72.0 Active 420210115 Problem Depression, major, recurrent, moderate F33.1 Active 558030936 Problem Anxiety state, unspecified F41.1 Active 202893361 Problem Chronic fatigue R53.82 Active 18988512 Problem BMI 35.0-35.9,adult Z68.35 Active 107144877 ALLERGIES No Information SOCIAL HISTORY Never Assessed PLAN OF CARE VITAL SIGNS MEDICATIONS Medication Instructions Dosage Frequency Start Date End Date Duration Status Pantoprazole Sodium 40 mg Orally Once a day 1 tablet 24h Active RESULTS No Results PROCEDURES No Known procedures IMMUNIZATIONS No Known Immunizations MEDICAL (GENERAL) HISTORY Type Description Date Medical History GERD Surgical History C- section x 2 Surgical History tubal ligation Surgical History hysterectomy 2009 Surgical History cholecystectomy 2014 Surgical History Fibroid removal
--- OUTSIDE RECORDS SUMMARY | 2019-01-13 22:00 | XMS REPORT ---
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 Name Role Phone FRANTZ MARQUEZ Unavailable PROBLEMS Type Condition ICD9-CM Code HYA67-LS Code Onset Dates Condition Status SNOMED Code Problem Chronic reflux esophagitis K21.0 Active 359774140 Problem Prediabetes R73.03 Active 761921461 Problem Elevated lymphocytes D72.820 Active 47948987 Problem Tobacco use Z72.0 Active 138382984 Problem Depression, major, recurrent, moderate F33.1 Active 236602392 Problem Anxiety state, unspecified F41.1 Active 564967537 Problem Chronic fatigue R53.82 Active 84989913 Problem BMI 35.0-35.9,adult Z68.35 Active 304495533 ALLERGIES Substance Reaction Event Type Date Status Citalopram 20 Mg Tablet Fatigue, "foggy", decreased sex drive Non Drug Allergy March, Active SOCIAL HISTORY Never Assessed PLAN OF CARE Activity Details Follow Up prn Reason: VITAL SIGNS Height 60 in 2017-03-16 Weight 181.8 lbs 2017-03-16 Temperature 98.2 degrees Fahrenheit 2017-03-16 Heart Rate 80 bpm 2017-03-16 Respiratory Rate 18 2017-03-16 BMI 35.50 kg/m2 2017-03-16 Blood pressure systolic 118 mmHg 2017-03-16 Blood pressure diastolic 82 mmHg 2017-03-16 MEDICATIONS Medication Instructions Dosage Frequency Start Date End Date Duration Status Keflex 500 MG Orally every 12 hrs 1 capsule 12h March, March, 10 day(s) Active Fluticasone Propionate 50 MCG/ACT Nasally Once a day 1 spray in each nostril 24h Dec, 14 days Active Pantoprazole Sodium 40 MG Orally Once a day 1 tablet 24h Active RESULTS Name Result Date Reference Range STREP A (IN HOUSE) 2017-03-16 STREP A Negative Control + Lot # [id number] Exp date 08/07/18 PROCEDURES Procedure Date Ordered Result Body Site STREP A ASSAY W/OPTIC March 16, 2017 IMMUNIZATIONS No Known Immunizations MEDICAL (GENERAL) HISTORY Type Description Date Medical History GERD Surgical History C- section x 2 Surgical History tubal ligation Surgical History hysterectomy 2009 Surgical History cholecystectomy 2013 Surgical History Fibroid removal
--- OUTSIDE RECORDS SUMMARY | 2019-01-13 22:00 | XMS REPORT ---
Author Author PADMINI LUJAN [facility] Address [address] [place] [address] Care Team Providers Care Boating Safety Officer Name Role Phone PADMINI LUJAN Unavailable PROBLEMS Type Condition ICD9-CM Code [id number] Code Onset Dates Condition Status SNOMED Code Problem BMI 35.0-35.9,adult Z68.35 Active 565159168 Problem Tobacco use Z72.0 Active 173931475 Problem Chronic fatigue R53.82 Active 28373961 Problem Prediabetes R73.03 Active 103209078 Problem Chronic reflux esophagitis K21.0 Active 787628321 Problem Carpal tunnel syndrome of right wrist G56.01 Active 55995033 Problem PTSD (post-traumatic stress disorder) F43.10 Active 27997553 Problem 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 45765273 Problem Elevated lymphocytes D72.820 Active 55638506 Problem WILMA (generalized anxiety disorder) F41.1 Active 21494296 Problem Severe episode of recurrent major depressive disorder, without psychotic features F33.2 Active 83449969 ALLERGIES No Information ENCOUNTERS Encounter Location Date Diagnosis [place] [id number] [place] [address] 07063- 8481 Jun, [facility] [id number] [place] [address] 05681- 2497 Jun, [facility] [id number] [place] [address] 04615- 6130 May, [facility] [address] [address]- [address]254 Apr, Severe episode of recurrent major depressive disorder, without psychotic features F33.2 ; WILMA (generalized anxiety disorder) F41.1 and PTSD (post-traumatic stress disorder) F43.10 [facility] [address] [address]96- 3683 March, Severe episode of recurrent major depressive disorder, without psychotic features F33.2 ; WILMA (generalized anxiety disorder) F41.1 and PTSD (post-traumatic stress disorder) F43.10 [place] [address] [place] [address] 15977- 3109 March, Severe episode of recurrent major depressive disorder, without psychotic features F33.2 ; WILMA (generalized anxiety disorder) F41.1 and PTSD (post-traumatic stress disorder) F43.10 [place] [id number] [place] [address] 30037- 7255 March, [place] [address] [id number] [place] [address] 63399- 5316 Jan, Severe episode of recurrent major depressive disorder, without psychotic features F33.2 ; WILMA (generalized anxiety disorder) F41.1 and PTSD (post-traumatic stress disorder) F43.10 [place] [address] [id number] [place] [address] 12413- 5492 Jan, Carpal tunnel syndrome of right wrist G56.01 [place] [address] [id number] [place] [address] 59013- 2216 Jan, Severe episode of recurrent major depressive disorder, without psychotic features F33.2 ; WILMA (generalized anxiety disorder) F41.1 and PTSD (post-traumatic stress disorder) F43.10 [place] [address] [place] [address] 14957- 2420 Dec, Severe episode of recurrent major depressive disorder, without 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 ; WILMA (generalized anxiety disorder) F41.1 and PTSD (post-traumatic stress disorder) F43.10 [place] [address] [id number] [place] [address] 55123- 2721 Dec, Severe episode of recurrent major depressive disorder, without psychotic features F33.2 ; WILMA (generalized anxiety disorder) F41.1 and PTSD (post-traumatic stress disorder) F43.10 [place] [address] [place] [id number] [place] [address] 93935- 5066 Dec, Severe episode of recurrent major depressive disorder, without psychotic features F33.2 ; WILMA (generalized anxiety disorder) F41.1 and PTSD (post-traumatic stress disorder) F43.10 [place] [address] [place] [address] 69915- 1340 Dec, Severe episode of recurrent major depressive disorder, without psychotic features F33.2 [place] [address] [id number] [place] [address] 343344- 4516 Dec, Severe episode of recurrent major depressive disorder, without psychotic features F33.2 ; WILMA (generalized anxiety disorder) F41.1 and PTSD (post-traumatic stress disorder) F43.10 [place] [address] [place] [address] 06857- 6293 Dec, Severe episode of recurrent major depressive disorder, without 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 ; WILMA (generalized anxiety disorder) F41.1 and PTSD (post-traumatic stress disorder) F43.10 [place] [address] [place] [address] 56377- 3981 Dec, Severe episode of recurrent major depressive disorder, without psychotic features F33.2 and Anxiety state, unspecified F41.1 [place] [address] [place] [address] 93416- 6739 14 Dec, 2017 Severe episode of recurrent major depressive disorder, without psychotic features F33.2 and Anxiety state, unspecified F41.1 [place] [address] [place] [address] 61227- 6190 Nov, Depression, major, recurrent, moderate F33.1 and Anxiety state, unspecified F41.1 [place] [address] [place] [address] 69088- 1829 Nov, Depression, major, recurrent, moderate F33.1 and Anxiety state, unspecified F41.1 [place] [address] [place] [address] [id number] [place] [address] 21793- 5644 Oct, Depression, major, recurrent, moderate F33.1 and Anxiety state, unspecified F41.1 [place] [address] [id number] [place] [address] 61204- 9478 07 Oct, 2017 Depression, major, recurrent, moderate F33.1 and Post- cholecystectomy syndrome K91.5 [place] [address] [place] [address] [id number] [place] [address] 25446- 5471 Oct, Depression, major, recurrent, moderate F33.1 and Anxiety state, unspecified F41.1 [place] [address] [place] [id number] [place] [address] 14722- 3607 Sep, Depression, major, recurrent, moderate F33.1 and Anxiety state, unspecified F41.1 [place] [address] [place] [id number] [place] [address] 82286- 6939 Sep, Depression, major, recurrent, moderate F33.1 and Anxiety state, unspecified F41.1 [place] [address] [place] [id number] [place] [address] 02596- 7892 Sep, Depression, major, recurrent, moderate F33.1 and Anxiety state, unspecified F41.1 [place] [address] [place] [id number] [place] [address] 76169- 3843 Sep, Diarrhea, unspecified type R19.7 [place] [address] [place] [address] [id number] [place] [address] 74406- 3927 Aug, Depression, major, recurrent, moderate F33.1 and Anxiety state, unspecified F41.1 [place] [address] [place] [id number] [place] [address] 09532- 3493 Aug, Depression, major, recurrent, moderate F33.1 and Anxiety state, unspecified F41.1 [place] [address] [place] [id number] [place] [address] 3095 Jul, Depression, major, recurrent, moderate F33.1 and Anxiety state, unspecified F41.1 [place] [address] [place] [id number] [place] [address] 2546 Jun, Depression, major, recurrent, moderate F33.1 and Anxiety state, unspecified F41.1 [place] [address] [place] [id number] [place] [address] 08788- 6283 Jun, Generalized abdominal pain R10.84 ; Diarrhea, unspecified type R19.7 ; Acute cystitis without hematuria N30.00 ; Abdominal bloating R14.0 and Elevated blood pressure reading R03.0 [place] [address] [place] [id number] [place] [address] 58223- 8439 Jun, Depression, major, recurrent, moderate F33.1 and Anxiety state, unspecified F41.1 [place] [address] [place] [address] [id number] [place] [address] 3279 May, Depression, major, recurrent, moderate F33.1 and Anxiety state, unspecified F41.1 [place] [address] 59153- 0419 May, Elevated lymphocytes D72.820 [place] [address] [place] [id number] [place] [address] 61215- 7313 May, Elevated lymphocytes D72.820 [place] [address] [place] [address] [id number] [place] [address] 95631- 6182 May, BMI 35.0-35.9,adult Z68.35 ; Other fatigue R53.83 ; Pelvic pain R10.2 ; Tobacco use Z72.0 and Chronic reflux esophagitis K21.0 [place] [address] [place] [id number] [place] [address] 49314- 7223 Apr, [place] [id number] [place] [address] 15928- 2266 Apr, Depression, major, recurrent, moderate F33.1 and Anxiety state, unspecified F41.1 [place] [address] [place] [id number] [place] [address] 27036- 2069 Apr, Depression, major, recurrent, moderate F33.1 and Anxiety state, unspecified F41.1 [place] [address] [place] [id number] [place] [address] 08592- 4568 Apr, [place] [address] [place] [id number] [place] [address] 72682- 5904 March, Major depressive disorder, recurrent episode, mild F33.0 and Anxiety state, unspecified F41.1 [facility] [address] 68310 -3707 March, Sore throat J02.9 and Submandibular lymphadenopathy R59.0 [place] [address] [place] [id number] [place] [address] 66096- 1596 Dec, Major depressive disorder, recurrent episode, mild F33.0 and Anxiety state, unspecified F41.1 [place] [address] [place] [id number] [place] [address] 17690- 7128 Dec, Major depressive disorder, recurrent episode, mild F33.0 and Anxiety state, unspecified F41.1 [place] [address] [place] [id number] [place] [address] 73701- 4137 Dec, Major depressive disorder, recurrent episode, mild F33.0 and Anxiety state, unspecified F41.1 [place] [address] [place] [id number] [place] [address] 04731- 1519 Sep, Major depressive disorder, recurrent episode, mild F33.0 and Anxiety state, unspecified F41.1 [place] [address] [place] [id number] [place] [address] 32391- 2900 Sep, Major depressive disorder, recurrent episode, moderate F33.1 and Anxiety state, unspecified F41.1 [place] [address] [place] [id number] [place] [address] 66843- 8398 Aug, Major depressive disorder, recurrent episode, moderate F33.1 and Anxiety state, unspecified F41.1 [place] [address] [place] [id number] [place] [address] 51580- 7195 Aug, Major depressive disorder, recurrent episode, moderate F33.1 and Anxiety state, unspecified F41.1 [place] [address] [address]- 1778 Jul, Major depressive disorder, recurrent episode, moderate F33.1 and Anxiety state, unspecified F41.1 [place] [address] [address]- 5534 Jul, Major depressive disorder, recurrent episode, moderate F33.1 and Anxiety state, unspecified F41.1 [place] [address] [address]- 6392 Jun, Major depressive disorder, recurrent episode, moderate F33.1 and Anxiety state, unspecified F41.1 [place] [address] [address]- 6895 Jun, Major depressive disorder, recurrent episode, moderate F33.1 and Anxiety state, unspecified F41.1 [place] [address] [address]- 3619 May, Major depressive disorder, recurrent episode, moderate F33.1 and Anxiety state, unspecified F41.1 [place] [address] [address]- 1909 Apr, Major depressive disorder, recurrent episode, moderate F33.1 and Anxiety state, unspecified F41.1 [place] [address] [address]- 8118 Apr, Major depressive disorder, recurrent episode, moderate F33.1 and Anxiety state, unspecified F41.1 [place] [address] [address]- 9637 Dec, Major depressive disorder, recurrent episode, moderate F33.1 and Anxiety state, unspecified F41.1 [place] [address] [address]- 2652 Dec, Major depressive disorder, recurrent episode, moderate F33.1 and Anxiety state, unspecified F41.1 [facility] [address] [place] [address] 58699 -1765 Dec, Pharyngitis J02.9 and Acute frontal sinusitis J01.10 [facility] [id number] [place] [address] 18555- 6350 Nov, Bilateral occipital neuralgia M54.81 and Neck muscle spasm M62.838 [facility] [address] [place] [id number] [place] [address] 53946- 8926 Nov, Major depressive disorder, recurrent episode, moderate F33.1 and Anxiety state, unspecified F41.1 [facility] [address] [place] [id number] [place] [address] 31783- 4658 Sep, Major depressive disorder, recurrent episode, moderate F33.1 and Anxiety state, unspecified F41.1 [facility] [id number] [place] [address] 77666- 7344 Aug, Major depressive disorder, recurrent episode, moderate F33.1 and Anxiety state, unspecified F41.1 [place] [address] [place] [id number] [place] [address] 63745- 8018 Jul, Abdominal pain 789.00 ; Hematochezia 578.1 and Weight loss 783.21 [facility] [address] [id number] [place] [address] 91666- 5444 May, [facility] [address] [id number] [place] [address] 65208- 9923 March, [facility] [address] [id number] [place] [address] 35460- 4890 March, [facility] [id number] [place] [address] 14639- 2474 Jan, [facility] [address] [id number] [place] [address] 79199- 8742 Jan, [facility] [address] [place] [address]- 2902 Dec, 2014 [facility] [place] [facility] [address] [id number] [place] [address]- 4646 Dec, 2014 [facility] [place] [facility] [address] [id number] [place] [address]- 2546 Dec, 2014 [facility] [place] [facility] [address] [id number] [place] [address] 2546 Dec, 2014 [facility] [place] [facility] [address] [id number] [place] [address] 2547 Dec, 2014 [facility] [place] [facility] [address] [id number] [place] [address]- 7537 Dec, 2014 [facility] [place] [facility] [address] [id number] [place] [address]- 1522 Jul, 2013 [facility] [place] [facility] [address] [id number] [place] [address]- 2546 Jul, 2013 [facility] [place] [facility] [address] [id number] [place] [address]- 2544 Jul, 2013 [facility] [place] [facility] [address] [id number] [place] [address] 2546 Jul, 2013 [facility] [place] [facility] [address] [id number] [place] [address]- 2545 10 Jul, 2013 [facility] [place] [facility] [address] [id number] [place] [address] 2546 10 Jul, 2013 [facility] [place] [facility] [address] [id number] [place] [address] 2546 Sep, 2013 [facility] [place] [facility] [address] [id number] [place] [address] 2546 Jul, 2013 [facility] [place] [facility] [address] [id number] [place] [address]- 2546 Jul, 2013 [facility] [place] [facility] [address] [id number] [place] [address] 7588 Jul, [facility] [place] [facility] [address] [id number] [place] [address]- 4870 Jul, [facility] [place] [facility] [address] [id number] [place] [address]- 1109 Jul, [facility] [place] [facility] [address] [id number] [place] [address]- 8478 May, [facility] [place] [facility] [address] [id number] [place] [address]- 5536 May, [facility] [place] [facility] [address] [id number] [place] [address]- 4448 Apr, [facility] [place] [facility] [address] [id number] [place] [address]- 8157 Apr, [facility] [place] [facility] [address] [id number] [place] [address]- 4980 Apr, [facility] [place] [facility] [address] [id number] [place] [address]- 9584 Apr, [facility] [place] [facility] [address] [id number] [place] [address]- 1099 March, [facility] [place] [facility] [address] [id number] [place] [address]- 4656 March, [facility] [place] [facility] [address] [id number] [place] [address]- 8212 Jan, [facility] [place] [facility] [address] [id number] [address]- 8040 Jan, [facility] [place] [facility] [address] [id number] [place] [address]- 5939 Jan, [facility] [place] [facility] [address] [id number] [place] [address]- 5692 Jan, [facility] [place] [facility] [address] [id number] [place] [address]- 6436 Dec, [facility] [place] [facility] [address] [id number], [place] [address]- 3856 25 Dec, 2013 [facility] [place] [facility] [address] [id number] [place] [address]- 0588 18 Dec, 2013 [facility] [place] [facility] [address] [id number] [place] [address]- 0646 18 Dec, 2013 [facility] [place] [facility] [address] [id number] [place] [address]- 5016 15 Dec, 2013 [facility] [place] [facility] [address] [id number] [place] [address]- 7028 14 Dec, 2013 [facility] [place] [facility] [address] [id number] [place] [address]- 8943 13 Dec, 2013 [facility] [place] [facility] [address] [id number] [place] [address]- 9054 13 Dec, 2013 [facility] [place] [facility] [address] [id number] [place] [address]- 7200 12 Dec, 2013 [facility] [place] [facility] [address] [id number] [place] [address]- 8669 12 Dec, 2013 [facility] [place] [facility] [address] [id number] [place] [address]- 6834 05 Dec, 2013 [facility] [place] [facility] [address] [facility] [id number] [place] [address]- 5173 05 Dec, 2013 [facility] [place] [facility] [address] [id number] [place] [address]- 8685 Dec, [facility] [place] [facility] [address] [id number] [place] [address]- 6746 Dec, [facility] [place] [facility] [address] [id number] [place] [address]- 1536 Dec, [facility] [place] [facility] [address] [id number] [place] [address]- 0139 Dec, [facility] [place] [facility] [address] [facility] [id number] [place] [address]- 3902 Dec, [facility] [place] [facility] [address] [id number] [place] [address]- 1572 Dec, [facility] [place] [facility] [address] [id number] [place] [address]- 7263 Nov, [facility] [place] [facility] [address] [id number] [place] [address]- 2004 Nov, [facility] [place] [facility] [address] [id number] [place] [address]- 6544 Nov, [facility] [place] [facility] [address] [id number] [place] [address]- 3703 Nov, [facility] [place] [facility] [address] [id number] [place] [address]- 0642 Nov, [facility] [place] [facility] [address] [id number] [place] [address]- 6304 Nov, [facility] [place] [facility] [address] [id number] [place] [address]- 9241 Nov, [facility] [place] [facility] [address] [id number] [place] [address]- 1809 Nov, [facility] [place] [facility] [address] [id number] [place] [address]- 1363 Oct, [facility] [place] [facility] [address] [id number] [place] [address]- 7419 Oct, [facility] [place] [facility] [address] [id number] [place] [address]- 7290 Oct, [facility] [place] [facility] [address] [id number] [place] [address]- 7746 Oct, [facility] [place] [facility] [address] [id number] [place] [address]- 8921 Oct, [facility] [place] [facility] [address] [id number] [place] [address]- 5896 Oct, [facility] [place] [facility] [address] [id number] [place] [address]- 4306 Sep, [facility] [place] [facility] [address] [id number] [place] [address]- 0616 Sep, [facility] [place] [facility] [address] [id number] [place] [address]- 0236 Sep, [facility] [place] [facility] [address] [id number] [place] [address]- 3648 Sep, [facility] [place] [facility] [address] [id number] [place] [address]- 9111 Aug, [facility] [place] [facility] [address] [id number] [place] [address]- 8312 Aug, [facility] [place] [facility] [address] [id number] [place] [address]- 4553 Aug, [facility] [place] [facility] [address] [id number] [place] [address]- 1913 Aug, [facility] [place] [facility] [address] [id number] [place] [address]- 8591 Jul, [facility] [place] [facility] [address] [id number] [place] [address]- 7154 Jul, [facility] [place] [facility] [address] [id number] [place] [address]- 9371 Jun, [facility] [place] [facility] [address] [id number], [place] [address]- 0065 Jun, [facility] [place] [facility] [address] [id number], [place] [address]- 6806 Apr, [facility] [place] [facility] [address] [id number] [place] [address]- 2071 Apr, [facility] [place] [facility] [address] [id number], [place] [address]- 1414 15 Apr, 2013 [facility] [place] [facility] [address] [id number] [place] [address]- 3071 14 Apr, 2013 [facility] [place] [facility] [address] [id number] [place] [address] 2546 March, [facility] [address] [id number] [place] [address]- 9296 March, [facility] [address] [id number] [place] [address]- 2546 March, [facility] [address] [id number] [place] [address]- 0926 Jan, [facility] [address] [id number] [place] [address]- 2546 Jan, [facility] [address] [id number] [place] [address]- 4093 Dec, [facility] [address] [id number] [place] [address]- 2546 Dec, [facility] [address] [id number] [place] [address]- 2546 Dec, [facility] [address] [id number] [place] [address]- 7977 Dec, [facility] [address] [id number] [place] [address] Dec, [facility] [address] [id number] [place] [address] Dec, [facility] [address] [id number] [place] [address] Nov, [facility] [address] [id number] [place] [address] Nov, [facility] [address] [id number] [place] [address] Oct, [facility] [address] [id number] [place] [address] Oct, [facility] [address] [id number] [place] [address] Oct, [facility] [place] [facility] [address] [id number] [place] [address] Oct, [facility] [place] [facility] [address] [id number] [place] [address] Oct, [facility] [place] [facility] [address] [id number] [place] [address] Oct, [facility] [place] [facility] [address] [id number] [place] [address] Oct, [facility] [place] [facility] [address] [id number] [place] [address] Oct, [facility] [place] [facility] [address] [id number] [place] [address] Oct, [facility] [place] [facility] [address] [facility] [id number] [place] [address] Oct, [facility] [place] [facility] [address] [id number], [place] [address] Sep, [facility] [place] [facility] [address] [id number], [place] [address] Sep, [facility] [place] [facility] [address] [id number], [place] [address] Sep, [facility] [place] [facility] [address] [id number], [place] [address] Sep, [facility] [place] [facility] [address] [id number], [place] [address] Aug, [facility] [place] [facility] [address] [id number], [place] [address] Aug, [facility] [place] [facility] [address] [id number], [place] [address] Aug, [facility] [place] [facility] [address] [facility] [id number], [place] [address] Jul, [facility] [place] [facility] [address] [id number] [place] [address] Jun, [facility] [place] [facility] [address] [id number] [place] [address] Jun, [facility] [place] [facility] [address] [id number] [place] [address] May, [facility] [place] [facility] [address] [id number] [place] [address] Apr, [facility] [place] [facility] [address] [address] [id number] [place] [address] March, [facility] [place] [facility] [address] [id number] [place] [address] Jan, [facility] [place] [facility] [address] [id number] [place] [address] Dec, 2011 [facility] [place] [facility] [address] [id number] [place] [address] Dec, [facility] [place] [facility] [address] [id number] [place] [address] Nov, [facility] [place] [facility] [address] [id number] [place] [address] Oct, [facility] [place] [facility] [address] [id number] [place] [address] Oct, [facility] [place] [facility] [address] [id number] [place] [address] Sep, [facility] [place] [facility] [address] [id number] [place] [address] Aug, [facility] [place] [facility] [address] [id number] [place] [address] Dec, [facility] [place] [facility] [address] [id number] [place] [address] Oct, [facility] [place] [facility] [address] [id number] [place] [address] Oct, [facility] [address] [facility] [id number], [place] [address] Oct, [facility] [address] [facility] [id number], [place] [address] Jun, [facility] [id number] [address] Jun, [facility] [id number], [place] [address] Oct, [facility] [id number], [place] [address] Sep, [facility] [id number], [place] [address] Sep, [facility] [id number], [place] [address] Sep, [facility] [id number], [place] [address] Aug, [facility] [id number], [place] [address] Dec, IMMUNIZATIONS No Known Immunizations SOCIAL HISTORY Never Assessed REASON FOR VISIT Follow-up Depression/Anxiety PLAN OF CARE Activity Details Follow Up Next available Reason: Follow-up VITAL SIGNS MEDICATIONS Unknown Medications RESULTS No Results PROCEDURES Procedure Date Ordered Result Body Site Psychotherapy, patient &/family, 30 minutes, established patient Dec 22, 2017 INSTRUCTIONS MEDICATIONS ADMINISTERED No Known Medications MEDICAL (GENERAL) HISTORY Type Description Date Medical History GERD Medical History anxiety Medical History depression Surgical History C- section x 2 Surgical History tubal ligation Surgical History hysterectomy 2009 Surgical History cholecystectomy 2014 Surgical History Fibroid removal Hospitalization History inpatient treatment [facility] 21 years old Hospitalization History surgeries
--- OUTSIDE RECORDS SUMMARY | 2019-01-13 22:00 | XMS REPORT ---
Author Author PADMINI LUJAN [employer] Address Unknown Phone Unavailable Care Team Providers Care External Auditor Name Role Phone PADMINI LUJAN CP Unavailable Allergies No Known Allergies Problems Problem Type Condition Code Onset Dates Condition Status Problem Anxiety state, unspecified F41.1 Active Problem Chronic reflux esophagitis K21.0 Active Problem Major depressive disorder, recurrent episode, moderate F33.1 Active Assessment Major depressive disorder, recurrent episode, moderate F33.1 Active Assessment Anxiety state, unspecified F41.1 Active Medications No Known Medications Procedures Procedure Coding System Code Date Psychotherapy, patient &/family, 45 minutes, established patient CPT-4 29079 Aug 20, 2016 Results No Known Results Summary Purpose eClinicalWorks Submission
--- OUTSIDE RECORDS SUMMARY | 2019-01-13 22:00 | XMS REPORT ---
Author Author PADMINI LUJAN [employer] Address Unknown Phone Unavailable Care Team Providers Care Raisin Washer Name Role Phone PADMINI LUJAN CP Unavailable Allergies No Known Allergies Problems Problem Type Condition Code Onset Dates Condition Status Problem Chronic reflux esophagitis K21.0 Active Assessment Major depressive disorder, recurrent episode, moderate F33.1 Active Problem Anxiety state, unspecified F41.1 Active Assessment Anxiety state, unspecified F41.1 Active Medications No Known Medications Procedures Procedure Coding System Code Date Psychotherapy, patient &/family, 45 minutes, established patient CPT-4 05424 Aug 06, 2016 Results No Known Results Summary Purpose eClinicalWorks Submission
--- OUTSIDE RECORDS SUMMARY | 2019-01-13 22:00 | XMS REPORT ---
Author Author PADMINI LUJAN [employer] Address Unknown Phone Unavailable Care Team Providers Care Chips Screen Tender Name Role Phone PADMINI LUJAN CP Unavailable [...] patient &/family, 45 minutes, established patient CPT-4 09311 Nov 13, 2015 Results No Known Results Summary Purpose eClinicalWorks Submission
--- OUTSIDE RECORDS SUMMARY | 2019-01-13 22:01 | XMS REPORT ---
Author Author PADMINI LUJAN [employer] Address Unknown Phone Unavailable Care Team Providers Care Water Quality Assistant Name Role Phone PADMINI LUJAN CP Unavailable [...] patient &/family, 45 minutes, established patient CPT-4 45702 Sep 17, 2016 Results No Known Results Summary Purpose eClinicalWorks Submission
--- OUTSIDE RECORDS SUMMARY | 2019-01-13 22:01 | XMS REPORT ---
Author Author PADMINI LUJAN [facility] Address [address] [place] [address] Care Team Providers Care Title Lawyer Name Role Phone PADMINI LUJAN Unavailable PROBLEMS Type Condition ICD9-CM Code [id number] Code Onset Dates Condition Status SNOMED Code Problem Chronic reflux esophagitis K21.0 Active 404802543 Problem Prediabetes R73.03 Active 877949705 Problem Elevated lymphocytes D72.820 Active 34646842 Problem Tobacco use Z72.0 Active 289712147 Problem Depression, major, recurrent, moderate F33.1 Active 605576266 Problem Anxiety state, unspecified F41.1 Active 227467118 Problem Chronic fatigue R53.82 Active 37477851 Problem BMI 35.0-35.9,adult Z68.35 Active 443888378 ALLERGIES Unknown Allergies SOCIAL HISTORY No smoking Hx information available PLAN OF CARE Activity Details Follow Up Next available and on the call in list Reason: Follow-up VITAL SIGNS MEDICATIONS Unknown Medications RESULTS No Results PROCEDURES Procedure Date Ordered Related Diagnosis Body Site Psychotherapy, patient &/family, 30 minutes, established patient Dec 03, 2016 IMMUNIZATIONS No Known Immunizations
--- OUTSIDE RECORDS SUMMARY | 2019-01-13 22:01 | XMS REPORT ---
Author Author PADMINI LUJAN [facility] Address [address] [place] [address] Care Team Providers Care Chief Lending Officer Name Role Phone PADMINI LUJAN Unavailable PROBLEMS Type Condition ICD9-CM Code [id number] Code Onset Dates Condition Status SNOMED Code Problem Chronic reflux esophagitis K21.0 Active 723822447 Problem Prediabetes R73.03 Active 643488405 Problem Elevated lymphocytes D72.820 Active 79943425 Problem Tobacco use Z72.0 Active 099860275 Problem Depression, major, recurrent, moderate F33.1 Active 585605570 Problem Anxiety state, unspecified F41.1 Active 134257845 Problem Chronic fatigue R53.82 Active 26991420 Problem BMI 35.0-35.9,adult Z68.35 Active 162067923 ALLERGIES No Information SOCIAL HISTORY Never Assessed PLAN OF CARE Activity Details Follow Up 2 Weeks Reason: Follow-up VITAL SIGNS MEDICATIONS Unknown Medications RESULTS No Results PROCEDURES Procedure Date Ordered Result Body Site Psychotherapy, patient &/family, 30 minutes, established patient January 13, 2017 IMMUNIZATIONS No Known Immunizations MEDICAL (GENERAL) HISTORY Type Description Date Medical History GERD Surgical History C- section x 2 Surgical History tubal ligation Surgical History hysterectomy 2009 Surgical History cholecystectomy 2014 Surgical History Fibroid removal
--- OUTSIDE RECORDS SUMMARY | 2019-01-13 22:01 | XMS REPORT ---
Author Author KHOI FIDEL [facility] Address [address] [place] [address] Care Team Providers Care Lead Applier Name Role Phone SAUNDRA WESTFALLY Unavailable PROBLEMS Type Condition ICD9-CM Code GVY17-LT Code Onset Dates Condition Status SNOMED Code Problem Chronic reflux esophagitis K21.0 Active 847334058 Problem Chronic fatigue R53.82 Active 52177631 Problem BMI 35.0-35.9,adult Z68.35 Active 118146843 Problem Prediabetes R73.03 Active 378241598 Problem PTSD (post-traumatic stress disorder) F43.10 Active 38947583 Problem WILMA (generalized anxiety disorder) F41.1 Active 27376532 Problem Elevated lymphocytes D72.820 Active 03176434 Problem Tobacco use Z72.0 Active 421834271 Problem Severe episode of recurrent major depressive disorder, without psychotic features F33.2 Active 05779752 Problem 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 24321627 ALLERGIES No Information ENCOUNTERS Encounter Location Date Diagnosis [facility] [id number] [place] [address] 31849- 9003 Jan, [facility] [id number] [place] [address] 41030- 3838 Jan, [facility] [id number] [place] [address] 26828- 2305 Dec, [facility] [id number] [place] [address] 78516- 4570 Dec, [facility] [id number] [place] [address] 79547- 5974 15 Dec, 2017 Severe episode of recurrent major depressive disorder, without psychotic features F33.2 ; WILMA (generalized anxiety disorder) F41.1 and PTSD (post-traumatic stress disorder) F43.10 [place] [facility] [address] [address] 6[address] Dec, Severe episode of recurrent major depressive disorder, without psychotic features F33.2 [facility] [id number] [place], [place] [address] Dec, Severe episode of recurrent major depressive disorder, without psychotic features F33.2 ; WILMA (generalized anxiety disorder) F41.1 and PTSD (post-traumatic stress disorder) F43.10 [facility] [id number] [place] [address] 27776- 0682 Dec, Severe episode of recurrent major depressive disorder, without psychotic features F33.2 ; WILMA (generalized anxiety disorder) F41.1 and PTSD (post-traumatic stress disorder) F43.10 [facility] [id number] [place] [address] 11162- 8046 Dec, Severe episode of recurrent major depressive disorder, without psychotic features F33.2 and Anxiety state, unspecified F41.1 [facility] [id number] [place] [address] 31785- 5047 Dec, Severe episode of recurrent major depressive disorder, without psychotic features F33.2 and Anxiety state, unspecified F41.1 [place] [id number] [place] [address] 67592- 0173 Nov, Depression, major, recurrent, moderate F33.1 and Anxiety state, unspecified F41.1 [place] [id number] [place] [address] 94627- 0796 Nov, Depression, major, recurrent, moderate F33.1 and Anxiety state, unspecified F41.1 [facility] [id number] [place] [address] 60923- 9538 Oct, Depression, major, recurrent, moderate F33.1 and Anxiety state, unspecified F41.1 [facility] [id number] [place] [address] 73552- 4957 Oct, Depression, major, recurrent, moderate F33.1 and Post- cholecystectomy syndrome K91.5 [facility] [id number] [place] [address] 46409- 5826 Oct, Depression, major, recurrent, moderate F33.1 and Anxiety state, unspecified F41.1 [facility] [id number] [place] [address] 85498- 3025 Sep, Depression, major, recurrent, moderate F33.1 and Anxiety state, unspecified F41.1 [facility] [id number] [place] [address] 51156- 0222 Sep, Depression, major, recurrent, moderate F33.1 and Anxiety state, unspecified F41.1 [facility] [id number] [place] [address] 30295- 4374 Sep, Depression, major, recurrent, moderate F33.1 and Anxiety state, unspecified F41.1 [facility] [id number] [place] [address] 07673- 7263 Sep, Diarrhea, unspecified type R19.7 [place] [address] 83402- 5074 Aug, Depression, major, recurrent, moderate F33.1 and Anxiety state, unspecified F41.1 [facility] [id number] [place] [address] 27264- 1282 Aug, Depression, major, recurrent, moderate F33.1 and Anxiety state, unspecified F41.1 [facility] [id number] [place] [address] 65285- 9152 Jul, Depression, major, recurrent, moderate F33.1 and Anxiety state, unspecified F41.1 [facility] [id number] [place] [address] Jun, Depression, major, recurrent, moderate F33.1 and Anxiety state, unspecified F41.1 [facility] [id number] [place] [address] 31836- 6349 Jun, Generalized abdominal pain R10.84 ; Diarrhea, unspecified type R19.7 ; Acute cystitis without hematuria N30.00 ; Abdominal bloating R14.0 and Elevated blood pressure reading R03.0 [place] [address] [place] [address] 15932- 1884 Jun, Depression, major, recurrent, moderate F33.1 and Anxiety state, unspecified F41.1 [facility] [place] [id number] [place] [address] 45123- 0955 May, Depression, major, recurrent, moderate F33.1 and Anxiety state, unspecified F41.1 [place] [id number] [place] [address] 22528- 9162 May, Elevated lymphocytes D72.820 [place] [id number] [place] [address] 77370- 8499 May, Elevated lymphocytes D72.820 [place] [id number] [place] [address] 04518- 3278 May, BMI 35.0-35.9,adult Z68.35 ; Other fatigue R53.83 ; Pelvic pain R10.2 ; Tobacco use Z72.0 and Chronic reflux esophagitis K21.0 [place] [id number] [place] [address] 83495- 1268 Apr, [place] [id number] [place] [address] 00217- 2264 Apr, Depression, major, recurrent, moderate F33.1 and Anxiety state, unspecified F41.1 [place] [id number] [place] [address] 98115- 0616 Apr, Depression, major, recurrent, moderate F33.1 and Anxiety state, unspecified F41.1 [place] [id number] [place] [address] 31602- 2074 Apr, [place] [address] [address] 3377 March, Major depressive disorder, recurrent episode, mild F33.0 and Anxiety state, unspecified F41.1 [facility] [address] [place] [address] 39936 -4915 March, Sore throat J02.9 and Submandibular lymphadenopathy R59.0 [facility] [id number] [place] [address] 51186- 6813 Dec, Major depressive disorder, recurrent episode, mild F33.0 and Anxiety state, unspecified F41.1 [place] [id number] [place] [address] 69210- 8805 Dec, Major depressive disorder, recurrent episode, mild F33.0 and Anxiety state, unspecified F41.1 [place] [id number] [place] [address] 65501- 7951 Dec, Major depressive disorder, recurrent episode, mild F33.0 and Anxiety state, unspecified F41.1 [place] [place] [id number] [place] [address] 93987- 7801 Sep, Major depressive disorder, recurrent episode, mild F33.0 and Anxiety state, unspecified F41.1 [place] [address] [place] [address] 91422- 1025 Sep, Major depressive disorder, recurrent episode, moderate F33.1 and Anxiety state, unspecified F41.1 [place] [address] [place] [address] 16135- 9354 Aug, Major depressive disorder, recurrent episode, moderate F33.1 and Anxiety state, unspecified F41.1 [place] [id number] [place] [address] 85721- 6476 Aug, Major depressive disorder, recurrent episode, moderate F33.1 and Anxiety state, unspecified F41.1 [facility] [id number] [place] [address] 35266- 0664 Jul, Major depressive disorder, recurrent episode, moderate F33.1 and Anxiety state, unspecified F41.1 [place] [address] [place] [address] 17552- 7937 Jul, Major depressive disorder, recurrent episode, moderate F33.1 and Anxiety state, unspecified F41.1 [place] [address], [place] [address]- 2761 Jun, Major depressive disorder, recurrent episode, moderate F33.1 and Anxiety state, unspecified F41.1 [place] [place] [id number] [place] [address] 69871- 3899 Jun, Major depressive disorder, recurrent episode, moderate F33.1 and Anxiety state, unspecified F41.1 [facility] [place] [id number] [place] [address] 68430- 1025 May, Major depressive disorder, recurrent episode, moderate F33.1 and Anxiety state, unspecified F41.1 [place] [address] [place] [address] 69152- 6816 Apr, Major depressive disorder, recurrent episode, moderate F33.1 and Anxiety state, unspecified F41.1 [place] [id number] [place] [address] 15295- 1576 Apr, Major depressive disorder, recurrent episode, moderate F33.1 and Anxiety state, unspecified F41.1 [place] [address] [place] [address] 97560- 4690 Dec, Major depressive disorder, recurrent episode, moderate F33.1 and Anxiety state, unspecified F41.1 [place] [address] [place] [address] 25399- 9385 Dec, Major depressive disorder, recurrent episode, moderate F33.1 and Anxiety state, unspecified F41.1 [facility] [address], [place] [address]8106 Dec, Pharyngitis J02.9 and Acute frontal sinusitis J01.10 [facility] [address] [place] [address] 72504- 7018 Nov, Bilateral occipital neuralgia M54.81 and Neck muscle spasm M62.838 [facility] [id number] [place] [address] 93336- 4342 Nov, Major depressive disorder, recurrent episode, moderate F33.1 and Anxiety state, unspecified F41.1 [place] [id number] [place] [address] 92581- 4399 Sep, Major depressive disorder, recurrent episode, moderate F33.1 and Anxiety state, unspecified F41.1 [place] [id number] [place] [address] 08368- 7605 Aug, Major depressive disorder, recurrent episode, moderate F33.1 and Anxiety state, unspecified F41.1 [place] [id number] [place] [address] 97167- 2303 Jul, Abdominal pain 789.00 ; Hematochezia 578.1 and Weight loss 783.21 [place] [id number] [place] [address] 18643- 8323 May, [place] [place] [id number] [place] [address] 46850- 4383 March, [place] [id number] [place] [address] 97064- 5602 March, [facility] [id number] [place] [address] 86670- 8199 Jan, [facility] [id number] [place] [address] 85099- 9985 Jan, [facility] [id number] [place] [address] 88816- 7886 Dec, [facility] [id number] [place] [address] 36677- 1652 Dec, [facility] [place] [facility] [address] [id number] [place] [address]- 2100 Dec, 2014 [facility] [place] [facility] [address] [id number] [place] [address]- 3171 Dec, 2014 [facility] [place] [facility] [address] [id number] [place] [address]- 4310 Dec, 2014 [facility] [place] [facility] [address] [id number] [place] [address]- 4772 Dec, 2014 [facility] [place] [facility] [address] [id number] [place] [address]- 0169 Jul, 2013 [facility] [place] [facility] [address] [id number] [place] [address]- 2549 25 Jul, 2013 [facility] [place] [facility] [address] [id number] [place] [address]- 7185 11 Jul, 2013 [facility] [place] [facility] [address] [id number] [place] [address]- 4340 11 Jul, 2013 [facility] [place] [facility] [address] [id number] [place] [address]- 2547 10 Jul, 2013 [facility] [place] [facility] [address] [id number] [place] [address]- 2541 10 Jul, 2013 [facility] [place] [facility] [address] [id number] [place] [address]- 2548 09 Sep, 2013 [facility] [place] [facility] [address] [id number] [address]- 2541 09 Sep, 2013 [facility] [place] [facility] [address] [id number] [place] [address] 2547 09 Sep, 2013 [facility] [place] [facility] [address] [id number] [place] [address]- 2543 09 Sep, 2013 [facility] [place] [facility] [address] [id number] [place] [address]- 2547 04 Sep, 2013 [facility] [place] [facility] [address] [id number] [place] [address]- 6773 Jul, [facility] [place] [facility] [address] [id number] [place] [address]- 8621 May, [facility] [place] [facility] [address] [id number] [place] [address]- 3704 May, [facility] [place] [facility] [address] [id number] [place] [address]- 4534 Apr, [facility] [place] [facility] [address] [id number] [place] [address]- 6531 Apr, [facility] [place] [facility] [address] [id number] [place] [address]- 0585 Apr, [facility] [place] [facility] [address] [id number] [place] [address]- 6694 Apr, [facility] [place] [facility] [address] [id number] [place] [address]- 8393 March, [facility] [place] [facility] [address] [id number] [place] [address]- 8088 March, [facility] [place] [facility] [address] [id number] [place] [address]- 0143 Jan, [facility] [place] [facility] [address] [id number] [place] [address]- 6560 Jan, [facility] [place] [facility] [address] [id number] [place] [address]- 6684 Jan, [facility] [place] [facility] [address] [id number] [place] [address]- 5779 Jan, [facility] [place] [facility] [address] [id number] [place] [address]- 4379 Dec, [facility] [place] [facility] [address] [id number] [place] [address]- 0731 Dec, [facility] [place] [facility] [address] [id number] [place] [address]- 6547 Dec, [facility] [place] [facility] [address] [id number] [place] [address]- 8814 18 Dec, 2013 [facility] [place] [facility] [address] [id number] [place] [address]- 4701 15 Dec, 2013 [facility] [place] [facility] [address] [id number] [place] [address]- 4125 14 Dec, 2013 [facility] [place] [facility] [address] [id number] [place] [address]- 8242 13 Dec, 2013 [facility] [place] [facility] [address] [id number] [place] [address]- 9554 13 Dec, 2013 [facility] [place] [facility] [address] [id number] [place] [address]- 2154 12 Dec, 2013 [facility] [place] [facility] [address] [id number] [place] [address]- 9933 12 Dec, 2013 [facility] [place] [facility] [address] [id number] [place] [address]- 5965 05 Dec, 2013 [facility] [place] [facility] [address] [id number] [place] [address]- 2032 05 Dec, 2013 [facility] [place] [facility] [address] [id number] [place] [address]- 0519 03 Dec, 2013 [facility] [place] [facility] [address] [id number] [place] [address]- 3586 Dec, [facility] [place] [facility] [address] [id number] [place] [address]- 8682 Dec, [facility] [place] [facility] [address] [id number] [place] [address]- 5337 Dec, [facility] [place] [facility] [address] [id number] [place] [address]- 9752 Dec, [facility] [place] [facility] [address] [id number] [place] [address]- 7841 Dec, [facility] [place] [facility] [address] [id number] [place] [address]- 8376 Nov, [facility] [place] [facility] [address] [id number] [place] [address]- 2098 Nov, [facility] [place] [facility] [address] [id number] [place] [address]- 0240 Nov, [facility] [place] [facility] [address] [id number] [place] [address]- 9704 Nov, [facility] [place] [facility] [address] [id number] [place] [address]- 7732 Nov, [facility] [place] [facility] [address] [id number] [place] [address]- 9604 Nov, [facility] [place] [facility] [address] [id number] [place] [address]- 6286 Nov, [facility] [place] [facility] [address] [id number] [place] [address]- 8586 Nov, [facility] [place] [facility] [address] [id number] [place] [address]- 3546 Oct, [facility] [place] [facility] [address] [id number] [place] [address]- 7182 Oct, [facility] [place] [facility] [address] [id number] [place] [address]- 1772 Oct, [facility] [place] [facility] [address] [id number] [place] [address]- 2576 Oct, [facility] [place] [facility] [address] [id number], [place] [address]- 7154 Oct, [facility] [place] [facility] [address] [id number] [place] [address]- 5347 Oct, [facility] [place] [facility] [address] [id number] [place] [address]- 6296 Sep, [facility] [place] [facility] [address] [id number] [place] [address]- 3436 Sep, [facility] [place] [facility] [address] [id number] [place] [address]- 7329 Sep, [facility] [address] [id number] [place] [address]- 8586 Sep, [facility] [place] [facility] [address] [id number] [place] [address]- 9615 Aug, [facility] [address] [id number] [place] [address]- 8946 Aug, [facility] [place] [facility] [address] [id number] [place] [address]- 5065 Aug, [facility] [address] [id number] [place] [address]- 2715 Aug, [facility] [address] [id number] [place] [address]- 0178 Jul, [facility] [place] [facility] [address] [id number] [place] [address]- 8950 Jul, [facility] [address] [id number] [place] [address]- 8495 Jun, [facility] [place] [facility] [address] [id number] [place] [address]- 1507 Jun, [facility] [address] [id number] [place] [address]- 7636 Apr, [facility] [place] [facility] [address] [id number] [place] [address]- 1643 Apr, [facility] [place] [facility] [address] [id number] [place] [address]- 2240 Apr, [facility] [place] [facility] [address] [id number] [place] [address]- 9360 Apr, [facility] [place] [facility] [address] [id number] [place] [address]- 3796 March, [facility] [place] [facility] [address] [id number] [place] [address]- 6850 March, [facility] [address] [id number] [place] [address]- 8036 March, [facility] [address] [id number] [place] [address]- 0156 Jan, [facility] [address] [id number] [place] [address]- 6546 Jan, [facility] [address] [id number] [place] [address]- 9806 Dec, [facility] [address] [id number] [place] [address]- 6846 Dec, [facility] [address] [id number] [place] [address]- 1176 Dec, [facility] [address] [id number] [place] [address]- 1246 Dec, [facility] [address] [id number] [place] [address]- 6746 Dec, [facility] [address] [id number] [place] [address]- 4956 Dec, [facility] [address] [id number] [place] [address]- 9896 Nov, [facility] [address] [id number] [place] [address]- 7266 Nov, [facility] [address] [id number], [place] [address] Oct, [facility] [place] [facility] [address] [id number] [place] [address] Oct, [facility] [address] [id number] [place] [address] Oct, [facility] [place] [facility] [address] [id number] [place] [address] Oct, [facility] [address] [id number] [place] [address] Oct, [facility] [place] [facility] [address] [id number] [place] [address] Oct, [facility] [place] [facility] [address] [id number] [place] [address] Oct, [facility] [place] [facility] [address] [facility] [id number] [place] [address] Oct, [facility] [place] [facility] [address] [id number] [place] [address] Oct, [facility] [place] [facility] [address] [id number] [place] [address] Oct, [facility] [place] [facility] [address] [id number] [place] [address] Sep, [facility] [place] [facility] [address] [id number] [place] [address] Sep, [facility] [place] [facility] [address] [id number] [place] [address] Sep, [facility] [place] [facility] [address] [id number] [place] [address] Sep, [facility] [place] [facility] [address] [facility] [id number] [place] [address] Aug, [facility] [place] [facility] [address] [id number] [place] [address] Aug, [facility] [place] [facility] [address] [id number], [place] [address] Aug, [facility] [place] [facility] [address] [id number] [place] [address] Jul, [facility] [place] [facility] [address] [facility] [id number] [place] [address]- [address] Jun, [facility] [place] [facility] [address] [facility] [id number] [place] [address] Jun, [facility] [place] [facility] [address] [id number] [place] [address] May, [facility] [place] [facility] [address] [id number] [place] [address] Apr, [facility] [place] [facility] [address] [id number] [place] [address] March, [facility] [place] [facility] [address] [id number] [place] [address] Jan, [facility] [place] [facility] [address] [id number] [place] [address] Dec, [facility] [place] [facility] [address] [id number] [place] [address] Dec, [facility] [place] [facility] [address] [id number] [place] [address] Nov, [facility] [address] [id number] [place] [address] Oct, [facility] [place] [facility] [address] [id number] [place] [address] Oct, [facility] [place] [facility] [address] [id number] [place] [address] Sep, [facility] [place] [facility] [address] [id number] [place] [address] Aug, [facility] [place] [facility] [address] [id number] [place] [address] Dec, [facility] [place] [facility] [address] [id number] [place] [address] Oct, [facility] [place] [facility] [address] [id number] [place] [address]- [address] Oct, [facility] [place] [facility] [address] [id number] [place] [address] Oct, [facility] [place] [facility] [address] [id number], [place] [address] Jun, [facility] [address] [id number], [place] [address] Jun, [facility] [id number], [place] [address] Oct, [facility] [address] [id number], [place] [address] Sep, [facility] [id number], [place] [address] Sep, [facility] [facility] [address] [id number], [place] [address] Sep, [facility] [id number], [place] [address] Aug, [facility] [id number], [place] [address] Dec, IMMUNIZATIONS No Known Immunizations SOCIAL HISTORY Never Assessed REASON FOR VISIT refill PLAN OF CARE VITAL SIGNS MEDICATIONS Medication [...]
--- OUTSIDE RECORDS SUMMARY | 2019-01-13 22:01 | XMS REPORT ---
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 Name Role Phone PADMINI LUJAN Unavailable PROBLEMS Type Condition ICD9-CM Code BMG64-TD Code Onset Dates Condition Status SNOMED Code Problem BMI 35.0-35.9,adult Z68.35 Active 589082910 Problem Tobacco use Z72.0 Active 351795231 Problem Chronic fatigue R53.82 Active 95019531 Problem Prediabetes R73.03 Active 703041785 Problem Chronic reflux esophagitis K21.0 Active 056591410 Problem Carpal tunnel syndrome of right wrist G56.01 Active 70783112 Problem PTSD (post-traumatic stress disorder) F43.10 Active 05145789 Problem 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 11554519 Problem Elevated lymphocytes D72.820 Active 26265406 Problem WILMA (generalized anxiety disorder) F41.1 Active 72661082 Problem Severe episode of recurrent major depressive disorder, without psychotic features F33.2 Active 05772135 ALLERGIES No Information ENCOUNTERS Encounter Location Date Diagnosis [place] [id number] [place] [address] 13811- 7767 May, [facility] [id number] [place] [address] 60773- 2228 Apr, [facility] [id number] [place] [address] 62995- 6283 Apr, [place] [address] [address]- [address] March, Severe episode of recurrent major depressive disorder, without psychotic features F33.2 ; WILMA (generalized anxiety disorder) F41.1 and PTSD (post-traumatic stress disorder) F43.10 [facility] [address] [address]- [address] March, Severe episode of recurrent major depressive disorder, without psychotic features F33.2 ; WILMA (generalized anxiety disorder) F41.1 and PTSD (post-traumatic stress disorder) F43.10 [place] [address] [address] March, [facility] [id number] [place] [address] 33146- 9026 Jan, Severe episode of recurrent major depressive disorder, without psychotic features F33.2 ; WILMA (generalized anxiety disorder) F41.1 and PTSD (post-traumatic stress disorder) F43.10 [place] [id number] [place] [address] 43378- 5136 Jan, Carpal tunnel syndrome of right wrist G56.01 [place] [id number] [place] [address] 68266- 4331 Jan, Severe episode of recurrent major depressive disorder, without psychotic features F33.2 ; WILMA (generalized anxiety disorder) F41.1 and PTSD (post-traumatic stress disorder) F43.10 [place] [address] [place] [address] 20133- 1507 Dec, Severe episode of recurrent major depressive disorder, without psychotic features F33.2 ; WILMA (generalized anxiety disorder) F41.1 and PTSD (post-traumatic stress disorder) F43.10 [place] [address] [place] [address] 22270- 5522 Dec, Severe episode of recurrent major depressive disorder, without psychotic features F33.2 ; WILMA (generalized anxiety disorder) F41.1 and PTSD (post-traumatic stress disorder) F43.10 [place] [id number] [place] [address] 96122- 3804 Dec, Severe episode of recurrent major depressive disorder, without psychotic features F33.2 ; WILMA (generalized anxiety disorder) F41.1 and PTSD (post-traumatic stress disorder) F43.10 [place] [id number] [place] [address] 54714- 5315 Dec, Severe episode of recurrent major depressive disorder, without psychotic features F33.2 [place] [id number] [place] [address] [address] Dec, Severe episode of recurrent major depressive disorder, without psychotic features F33.2 ; WILMA (generalized anxiety disorder) F41.1 and PTSD (post-traumatic stress disorder) F43.10 [place] [id number] [place], [place] [address] Dec, Severe episode of recurrent major depressive disorder, without psychotic features F33.2 ; WILMA (generalized anxiety disorder) F41.1 and PTSD (post-traumatic stress disorder) F43.10 [place] [id number] [place] [address] Dec, Severe episode of recurrent major depressive disorder, without psychotic features F33.2 and Anxiety state, unspecified F41.1 [place] [id number] [place] [address] 61503- 7917 Dec, Severe episode of recurrent major depressive disorder, without 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 and Anxiety state, unspecified F41.1 [place] [id number] [place] [address] 29725- 2157 Nov, Depression, major, recurrent, moderate F33.1 and Anxiety state, unspecified F41.1 [place] [id number] [place] [address] 60127- 8995 Nov, Depression, major, recurrent, moderate F33.1 and Anxiety state, unspecified F41.1 [place] [id number] [place] [address] 71010- 1756 Oct, Depression, major, recurrent, moderate F33.1 and Anxiety state, unspecified F41.1 [place] [id number] [place] [address] 11767- 6822 Oct, Depression, major, recurrent, moderate F33.1 and Post- cholecystectomy syndrome K91.5 [place] [id number] [place] [address]807 07 Oct, 2017 Depression, major, recurrent, moderate F33.1 and Anxiety state, unspecified F41.1 [place] [id number] [place] [address] Sep, Depression, major, recurrent, moderate F33.1 and Anxiety state, unspecified F41.1 [place] [id number] [place] [address]- 0019 Sep, Depression, major, recurrent, moderate F33.1 and Anxiety state, unspecified F41.1 [place] [address]- 4921 Sep, Depression, major, recurrent, moderate F33.1 and Anxiety state, unspecified F41.1 [place] [address]- 0848 Sep, Diarrhea, unspecified type R19.7 [place] [id number] [place] [address] 44084- 6617 Aug, Depression, major, recurrent, moderate F33.1 and Anxiety state, unspecified F41.1 [place] [id number] [place] [address]- 1262 Aug, Depression, major, recurrent, moderate F33.1 and Anxiety state, unspecified F41.1 [place] [id number] [place] [address] Jul, Depression, major, recurrent, moderate F33.1 and Anxiety state, unspecified F41.1 [place] [id number] [place] [address] Jun, Depression, major, recurrent, moderate F33.1 and Anxiety state, unspecified F41.1 [place] [id number] [place] [address] 44347- 2992 Jun, Generalized abdominal pain R10.84 ; Diarrhea, unspecified type R19.7 ; Acute cystitis without hematuria N30.00 ; Abdominal bloating R14.0 and Elevated blood pressure reading R03.0 [place] [id number] [place] [address] 86457- 1411 Jun, Depression, major, recurrent, moderate F33.1 and Anxiety state, unspecified F41.[address] 81658- 4898 May, Depression, major, recurrent, moderate F33.1 and Anxiety state, unspecified F41.[address] 73368- 5568 May, Elevated lymphocytes D72.820 [place] [id number] [place] [address] 25030- 9139 May, Elevated lymphocytes D72.820 [place] [id number] [place] [address] 51357- 4228 May, BMI 35.0-35.9,adult Z68.35 ; Other fatigue R53.83 ; Pelvic pain R10.2 ; Tobacco use Z72.0 and Chronic reflux esophagitis K21.0 [place] [id number] [place] [address] 61466- 1114 Apr, [place] [id number] [place] [address] 87540- 6680 Apr, Depression, major, recurrent, moderate F33.1 and Anxiety state, unspecified F41.1 [place] [id number] [place] [address] 44005- 6281 Apr, Depression, major, recurrent, moderate F33.1 and Anxiety state, unspecified F41.1 [place] [id number] [place] [address] 56838- 5938 Apr, [address] 96203- 3832 March, Major depressive disorder, recurrent episode, mild F33.0 and Anxiety state, unspecified F41.1 [facility] [id number] [place] [address] 65728 -1589 March, Sore throat J02.9 and Submandibular lymphadenopathy R59.0 [facility] [id number] [place] [address] 94516- 9004 Dec, Major depressive disorder, recurrent episode, mild F33.0 and Anxiety state, unspecified F41.1 [place] [id number] [place] [address] 98252- 4418 Dec, Major depressive disorder, recurrent episode, mild F33.0 and Anxiety state, unspecified F41.1 [place] [id number] [place] [address] 42601- 3211 Dec, Major depressive disorder, recurrent episode, mild F33.0 and Anxiety state, unspecified F41.1 [place] [id number] [place] [address] 94987- 3631 Sep, Major depressive disorder, recurrent episode, mild F33.0 and Anxiety state, unspecified F41.1 [place] [id number] [place] [address] 36462- 3575 Sep, Major depressive disorder, recurrent episode, moderate F33.1 and Anxiety state, unspecified F41.1 [place] [id number] [place] [address] 93671- 5387 Aug, Major depressive disorder, recurrent episode, moderate F33.1 and Anxiety state, unspecified F41.1 [place] [id number] [place] [address] 14382- 9295 Aug, Major depressive disorder, recurrent episode, moderate F33.1 and Anxiety state, unspecified F41.1 [place] [address] [place] [address] 89063- 1152 Jul, Major depressive disorder, recurrent episode, moderate F33.1 and Anxiety state, unspecified F41.1 [place] [address] [address]- 9489 Jul, Major depressive disorder, recurrent episode, moderate F33.1 and Anxiety state, unspecified F41.1 [place] [address] [address]- 7581 Jun, Major depressive disorder, recurrent episode, moderate F33.1 and Anxiety state, unspecified F41.1 [place] [address] [address]- 3632 Jun, Major depressive disorder, recurrent episode, moderate F33.1 and Anxiety state, unspecified F41.1 [place] [id number] [place] [address] 09015- 2945 May, Major depressive disorder, recurrent episode, moderate F33.1 and Anxiety state, unspecified F41.1 [place] [id number] [place] [address] 70284- 0619 Apr, Major depressive disorder, recurrent episode, moderate F33.1 and Anxiety state, unspecified F41.1 [place] [address] [place] [address] 87889- 5371 Apr, Major depressive disorder, recurrent episode, moderate F33.1 and Anxiety state, unspecified F41.1 [place] [address] [address]- 1899 Dec, Major depressive disorder, recurrent episode, moderate F33.1 and Anxiety state, unspecified F41.1 [place] [address] [address]- 6401 Dec, Major depressive disorder, recurrent episode, moderate F33.1 and Anxiety state, unspecified F41.1 [facility] [address], [place] [address] -[address]47 Dec, Pharyngitis J02.9 and Acute frontal sinusitis J01.10 [place] [id number] [place] [address] 34099- 4099 Nov, Bilateral occipital neuralgia M54.81 and Neck muscle spasm M62.838 [facility] [id number] [place] [address] 50974- 5805 Nov, Major depressive disorder, recurrent episode, moderate F33.1 and Anxiety state, unspecified F41.1 [facility] [id number] [place] [address] 46538- 9799 Sep, Major depressive disorder, recurrent episode, moderate F33.1 and Anxiety state, unspecified F41.1 [facility] [id number] [place] [address] 98627- 3559 Aug, Major depressive disorder, recurrent episode, moderate F33.1 and Anxiety state, unspecified F41.1 [facility] [id number] [place] [address] 61897- 7948 Jul, Abdominal pain 789.00 ; Hematochezia 578.1 and Weight loss 783.21 [facility] [id number] [place] [address] 38813- 8288 May, [facility] [id number] [place] [address] 45820- 7755 March, [facility] [id number] [place] [address] 63441- 7163 March, [facility] [id number] [place] [address] 67494- 4405 Jan, [facility] [id number] [place] [address] 00670- 9627 Jan, [facility] [id number] [place] [address] 18195- 9660 Dec, [facility] [id number] [place] [address] 94268- 5336 Dec, [facility] [id number] [place] [address] 63375- 0518 Dec, 2014 [facility] [place] [facility] [address] [id number] [place] [address]- 3536 Dec, 2014 [facility] [place] [facility] [address] [id number] [place] [address]- 1916 Dec, 2014 [facility] [place] [facility] [address] [id number] [place] [address]- 7009 Dec, 2014 [facility] [place] [facility] [address] [id number] [place] [address]- 4137 Jul, 2013 [facility] [place] [facility] [address] [id number] [place] [address]- 6902 25 Jul, 2013 [facility] [place] [facility] [address] [id number] [place] [address]- 0923 11 Jul, 2013 [facility] [place] [facility] [address] [id number] [place] [address]- 9476 11 Jul, 2013 [facility] [place] [facility] [address] [id number] [place] [address]- 2541 10 Sep, 2013 [facility] [place] [facility] [address] [id number] [place] [address]- 1165 10 Jul, 2013 [facility] [place] [facility] [address] [id number] [place] [address]- 6072 09 Sep, 2013 [facility] [place] [facility] [address] [id number] [place] [address] 2545 09 Sep, 2013 [facility] [place] [facility] [address] [id number] [address]- 2549 09 Sep, 2013 [facility] [place] [facility] [address] [id number] [place] [address]- 2541 09 Sep, 2013 [facility] [place] [facility] [address] [id number] [place] [address]- 8329 04 Sep, 2013 [facility] [place] [facility] [address] [id number] [place] [address]- 6237 04 Sep, 2013 [facility] [place] [facility] [address] [id number] [place] [address]- 2156 May, [facility] [place] [facility] [address] [id number] [place] [address]- 3686 May, [facility] [place] [facility] [address] [id number] [place] [address]- 4350 Apr, [facility] [place] [facility] [address] [id number] [place] [address]- 1270 Apr, [facility] [place] [facility] [address] [id number] [place] [address]- 6694 Apr, [facility] [place] [facility] [address] [id number] [place] [address]- 7041 Apr, [facility] [place] [facility] [address] [id number] [place] [address]- 9614 March, [facility] [place] [facility] [address] [id number] [place] [address]- 8094 March, [facility] [place] [facility] [address] [id number] [place] 0152 Jan, [facility] [place] [facility] [address] [id number] [place] [address]- 9062 Jan, [facility] [place] [facility] [address] [id number] [place] [address]- 1577 Jan, [facility] [place] [facility] [address] [id number] [place] [address]- 0524 Jan, [facility] [place] [facility] [address] [id number] [place] [address]- 3558 Dec, [facility] [place] [facility] [address] [id number] [place] [address]- 3995 Dec, [facility] [place] [facility] [address] [id number] [place] [address]- 5998 Dec, [facility] [place] [facility] [address] [id number] [place] [address]- 6783 18 Dec, 2013 [facility] [place] [facility] [address] [id number] [place] [address]- 1542 15 Dec, 2013 [facility] [place] [facility] [address] [id number] [place] [address]- 5791 14 Dec, 2013 [facility] [place] [facility] [address] [id number] [place] [address]- 3381 13 Dec, 2013 [facility] [place] [facility] [address] [id number] [place] [address]- 0020 13 Dec, 2013 [facility] [place] [facility] [address] [id number] [place] [address]- 8339 12 Dec, 2013 [facility] [place] [facility] [address] [id number] [place] [address]- 7442 12 Dec, 2013 [facility] [place] [facility] [address] [id number] [place] [address]- 7992 05 Dec, 2013 [facility] [place] [facility] [address] [id number] [place] [address]- 5215 05 Dec, 2013 [facility] [place] [facility] [address] [id number] [place] [address]- 1270 Dec, [facility] [place] [facility] [address] [id number] [place] [address]- 3304 Dec, [facility] [place] [facility] [address] [id number] [place] [address]- 4275 Dec, [facility] [place] [facility] [address] [id number] [place] [address]- 4917 Dec, [facility] [place] [facility] [address] [id number] [place] [address]- 2015 Dec, [facility] [place] [facility] [address] [id number] [place] [address]- 4872 Dec, [facility] [place] [facility] [address] [id number] [place] [address]- 7684 Nov, [facility] [place] [facility] [address] [id number] [place] [address]- 0198 Nov, [facility] [address] [id number] [place] [address]- 0755 Nov, [facility] [address] [id number] [place] [address]- 9816 Nov, [facility] [address] [id number] [place] [address]- 6316 Nov, [facility] [address] [id number] [place] [address]- 1490 Nov, [facility] [address] [id number] [place] [address]- 7843 Nov, [facility] [address] [id number] [place] [address]- 4566 Nov, [facility] [address] [id number] [place] [address]- 4637 Oct, [facility] [address] [id number] [place] [address]- 9397 Oct, [facility] [address] [id number] [place] [address]- 9710 Oct, [facility] [address] [id number] [place] [address]- 4550 Oct, [facility] [address] [id number] [place] [address]- 2546 Oct, [facility] [address] [id number] [place] [address]- 2546 Oct, [facility] [place] [facility] [address] [id number] [place] [address]- 1166 Sep, [facility] [place] [facility] [address] [id number] [place] [address]- 2546 Sep, [facility] [address] [id number] [place] [address]- 9186 Sep, [facility] [place] [facility] [address] [id number] [place] [address]- 8863 Sep, [facility] [place] [facility] [address] [id number] [place] [address]- 8455 Aug, [facility] [place] [facility] [address] [id number] [place] [address]- 1277 Aug, [facility] [place] [facility] [address] [id number] [place] [address]- 8305 Aug, [facility] [place] [facility] [address] [id number] [place] 1909 Aug, [facility] [place] [facility] [address] [id number] [place] 5558 Jul, [facility] [place] [facility] [address] [id number] [place] [address]- 7900 Jul, [facility] [place] [facility] [address] [id number] [place] [address]- 3592 Jun, [facility] [place] [facility] [address] [id number] [place] 2395 Jun, [facility] [place] [facility] [address] [id number], [place] [address]- 9288 Apr, [facility] [place] [facility] [address] [id number], [place] [address]- 5923 Apr, [facility] [place] [facility] [address] [id number][place] [address]- 0978 15 Apr, 2013 [facility] [place] [facility] [address] [id number] [place] [address]- 5481 Apr, [facility] [place] [facility] [address] [id number], [place] [address]- 8996 30 Mar, 2013 [facility] [place] [facility] [address] [id number], [place] [address]- 2155 March, [facility] [place] [facility] [address] [id number] [address]- 4672 March, [facility] [address] [id number] [place] [address]- 1216 Jan, [facility] [address] [id number] [place] [address]- 0186 Jan, [facility] [address] [id number] [place] [address]- 6816 Dec, [facility] [address] [id number] [place] [address]- 3108 Dec, [facility] [address] [id number] [place] [address]- 2716 Dec, [facility] [address] [id number] [place] [address]- 3306 Dec, [facility] [address] [id number] [place] [address]- 9761 Dec, [facility] [address] [id number] [place] [address]- 5148 Dec, [facility] [address] [id number] [place] [address]- 1726 Nov, [facility] [address] [facility] [id number] [place] [address]- 3356 Nov, [facility] [address] [id number] [place] [address]- 8708 Oct, [facility] [address] [id number] [place] [address]- 3891 Oct, [facility] [place] [facility] [address] [id number] [place] [address]- 5907 Oct, [facility] [address] [id number] [place] [address]- 4496 Oct, [facility] [address] [id number] [place] [address]- 8021 Oct, [facility] [place] [facility] [address] [id number] [place] [address] Oct, [facility] [place] [facility] [address] [id number] [place] [address] Oct, [facility] [place] [facility] [address] [id number] [place] [address] Oct, [facility] [place] [facility] [address] [id number] [place] [address] Oct, [facility] [place] [facility] [address] [id number] [place] [address] Oct, [facility] [place] [facility] [address] [id number] [place] [address] Sep, [facility] [place] [facility] [address] [id number] [place] [address] Sep, [facility] [place] [facility] [address] [id number] [place] [address] Sep, [facility] [place] [facility] [address] [id number] [place] [address] Sep, [facility] [place] [facility] [address] [id number] [place] [address] Aug, [facility] [place] [facility] [address] [id number] [place] [address] Aug, [facility] [place] [facility] [address] [id number] [place] [address] Aug, [facility] [place] [facility] [address] [id number] [place] [address] Jul, [facility] [place] [facility] [address] [id number] [place] [address] Jun, [facility] [place] [facility] [address] [id number] [place] [address] Jun, [facility] [place] [facility] [address] [id number] [place] [address] May, [facility] [address] [id number] [place] [address] Apr, [facility] [place] [facility] [address] [id number] [place] [address] March, [facility] [place] [facility] [address] [id number] [place] [address] Jan, [facility] [place] [facility] [address] [id number] [place] [address] Dec, [facility] [place] [facility] [address] [id number] [place] [address] Dec, [facility] [place] [facility] [address] [id number] [place] [address] Nov, [facility] [address] [id number] [place] [address] Oct, [facility] [place] [facility] [address] [id number] [place] [address] Oct, [facility] [facility] [place] [facility] [address] [id number] [place] [address] Sep, [facility] [place] [facility] [address] [id number] [place] [address] Aug, [facility] [place] [facility] [address] [id number] [place] [address] Dec, [facility] [place] [facility] [address] [id number] [place] [address] Oct, [facility] [place] [facility] [address] [id number] [place] [address] Oct, [facility] [place] [facility] [address] [id number] [place] [address] Oct, [facility] [place] [facility] [address] [id number] [place] [address] Jun, [facility] [place] [facility] [address] [id number] [place] [address] Jun, [facility] [address] [id number] [address] Oct, [facility] [id number] [address] Sep, [facility] [address] [id number] [address] Sep, [facility] [id number] [address] Sep, [facility] [address] [id number] [address] Aug, [facility] [id number] [address] Dec, IMMUNIZATIONS No Known Immunizations SOCIAL HISTORY Never Assessed REASON FOR VISIT Follow-up Depression/Anxiety PLAN OF CARE Activity Details Follow Up 2 Weeks Reason: Follow-up VITAL SIGNS MEDICATIONS Unknown Medications RESULTS No Results PROCEDURES Procedure Date Ordered Result Body Site Psychotherapy, patient &/family, 45 minutes, established patient Sep 17, 2017 INSTRUCTIONS MEDICATIONS ADMINISTERED No Known Medications MEDICAL (GENERAL) HISTORY Type Description Date Medical History GERD Medical History anxiety Medical History depression Surgical History C- section x 2 Surgical History tubal ligation Surgical History hysterectomy 2008 Surgical History cholecystectomy 2013 Surgical History Fibroid removal Hospitalization History inpatient treatment Mirtha SMITH 21 years old Hospitalization History surgeries
[2019-01-13] MEDS ORDERED: FLUT9.9S NS (22:02)
[2019-01-13] MEDS ORDERED: LEVO5TAB28 PO (22:02)
[2019-01-13] MEDS ORDERED: COLE625T9 PO (22:02)
--- OUTSIDE RECORDS SUMMARY | 2019-01-13 22:02 | XMS REPORT ---
Author Author PADMINI LUJAN eClinical[employer] Address Unknown Phone Unavailable Care Team Providers Care Security System Engineer Name Role Phone PADMINI LUJAN CP Unavailable [...] Coding System Code Date Psychotherapy, patient &/family, 30 minutes, established patient CPT-4 [id number] Jun 02, 2016 Results No Known Results Summary Purpose eClinicalWorks Submission
--- OUTSIDE RECORDS SUMMARY | 2019-01-13 22:02 | XMS REPORT ---
Author Author KHOI FIDEL [facility] Address [address] [place] [address] Care Team Providers Care Paper Slitter Name Role Phone SAUNDRA WESTFALLY Unavailable PROBLEMS Type Condition ICD9-CM Code [id number] Code Onset Dates Condition Status SNOMED Code Problem Chronic reflux esophagitis K21.0 Active 261924042 Problem Chronic fatigue R53.82 Active 40873200 Problem BMI 35.0-35.9,adult Z68.35 Active 715575350 Problem Prediabetes R73.03 Active 264006926 Problem PTSD (post-traumatic stress disorder) F43.10 Active 70812663 Problem WILMA (generalized anxiety disorder) F41.1 Active 56555940 Problem Elevated lymphocytes D72.820 Active 14356565 Problem Tobacco use Z72.0 Active 726907897 Problem Severe episode of recurrent major depressive disorder, without psychotic features F33.2 Active 69236154 Problem 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 58978049 ALLERGIES No Information ENCOUNTERS Encounter Location Date Diagnosis [place] [id number] [place] [address] 61472- 9816 Apr, [facility] [address] [place] [address] 01017- 8241 Jan, [facility] [address] [place] [id number] [place] [address] 56595- 2641 Jan, [facility] [id number] [place] [address] 33873- 5205 Dec, Severe episode of recurrent major depressive disorder, without psychotic features F33.2 ; WILMA (generalized anxiety disorder) F41.1 and PTSD (post-traumatic stress disorder) F43.10 [facility] [address] [place] [address] 79338- 0833 Dec, Severe episode of recurrent major depressive disorder, without psychotic features F33.2 ; WILMA (generalized anxiety disorder) F41.1 and PTSD (post-traumatic stress disorder) F43.10 [place] [address] [place] [id number] [place] [id number] Dec, Severe episode of recurrent major depressive disorder, without psychotic features F33.2 ; WILMA (generalized anxiety disorder) F41.1 and PTSD (post-traumatic stress disorder) F43.10 [place] [address] [id number] [place] [address] 07485- 3913 Dec, Severe episode of recurrent major depressive disorder, without psychotic features F33.2 [place] [address] [place] [id number] [place] [address] 53236- 4103 Dec, Severe episode of recurrent major depressive disorder, without psychotic features F33.2 ; WILMA (generalized anxiety disorder) F41.1 and PTSD (post-traumatic stress disorder) F43.10 [place] [address] [place] [id number] [place] [address] 03644- 8751 Dec, Severe episode of recurrent major depressive disorder, without psychotic features F33.2 ; WILMA (generalized anxiety disorder) F41.1 and PTSD (post-traumatic stress disorder) F43.10 [place] [address] [id number] [place] [address] 96965- 9752 Dec, Severe episode of recurrent major depressive disorder, without psychotic features F33.2 and Anxiety state, unspecified F41.1 [place] [address] [place] [id number] [place] [address] 02313- 3014 Dec, Severe episode of recurrent major depressive disorder, without psychotic features F33.2 and Anxiety state, unspecified F41.1 [place] [address] [id number] [place] [address] 17872- 5658 Nov, Depression, major, recurrent, moderate F33.1 and Anxiety state, unspecified F41.1 [place] [address] [place] [id number] [place] [address] 12774- 8385 Nov, Depression, major, recurrent, moderate F33.1 and Anxiety state, unspecified F41.1 [place] [address] [id number] [place] [address] 52653- 5172 Oct, Depression, major, recurrent, moderate F33.1 and Anxiety state, unspecified F41.1 [place] [address] [address] [id number] [place] [address] 64880- 9909 Oct, Depression, major, recurrent, moderate F33.1 and Post- cholecystectomy syndrome K91.5 [place] [address] [id number] [place] [address] 78237- 6696 Oct, Depression, major, recurrent, moderate F33.1 and Anxiety state, unspecified F41.1 [place] [address] [id number] [place] [address] 12836- 0845 Sep, Depression, major, recurrent, moderate F33.1 and Anxiety state, unspecified F41.1 [place] [address] [id number] [place] [address] 02120- 6774 Sep, Depression, major, recurrent, moderate F33.1 and Anxiety state, unspecified F41.1 [place] [address] [id number] [place] [address] 45042- 6311 Sep, Depression, major, recurrent, moderate F33.1 and Anxiety state, unspecified F41.1 [place] [address] [id number] [place] [address] 00099- 4730 Sep, Diarrhea, unspecified type R19.7 [place] [address] [place] [id number] [place] [address] 05788- 5861 Aug, Depression, major, recurrent, moderate F33.1 and Anxiety state, unspecified F41.1 [place] [address] [id number] [place] [address] 86887- 7685 Aug, Depression, major, recurrent, moderate F33.1 and Anxiety state, unspecified F41.1 [place] [address] [address]59 Jul, Depression, major, recurrent, moderate F33.1 and Anxiety state, unspecified F41.1 [place] [address] [place] 375203- 3820 Jun, Depression, major, recurrent, moderate F33.1 and Anxiety state, unspecified F41.1 [place] [address] [place] [id number]- 3973 Jun, Generalized abdominal pain R10.84 ; Diarrhea, unspecified type R19.7 ; Acute cystitis without hematuria N30.00 ; Abdominal bloating R14.0 and Elevated blood pressure reading R03.0 [place] [address] [place] 375208- 6014 Jun, Depression, major, recurrent, moderate F33.1 and Anxiety state, unspecified F41.1 [place] [address] [place] [id number]- 2174 May, Depression, major, recurrent, moderate F33.1 and Anxiety state, unspecified F41.1 [place] [address] [place] [id number]- 2664 May, Elevated lymphocytes D72.820 [place] [address] 87026- 0148 May, Elevated lymphocytes D72.820 [place] [address] [place] [id number]- 7010 May, BMI 35.0-35.9,adult Z68.35 ; Other fatigue R53.83 ; Pelvic pain R10.2 ; Tobacco use Z72.0 and Chronic reflux esophagitis K21.0 [place] [address] [place] [id number] [place] [address]- 1783 Apr, [place] [address] [place] [id number]- 7518 Apr, Depression, major, recurrent, moderate F33.1 and Anxiety state, unspecified F41.1 [facility] [address] [address]- 7883 Apr, Depression, major, recurrent, moderate F33.1 and Anxiety state, unspecified F41.1 [facility] [address] [address]- 5449 Apr, [facility] [address] [place] [id number] [place] [address] 86724- 9191 March, Major depressive disorder, recurrent episode, mild F33.0 and Anxiety state, unspecified F41.1 [facility] [address] [address] [id number] [place] [address] 79071 -6718 March, Sore throat J02.9 and Submandibular lymphadenopathy R59.0 [facility] [address], [place] [address]- 1886 Dec, Major depressive disorder, recurrent episode, mild F33.0 and Anxiety state, unspecified F41.1 [place] [address] [place] [address] 41601- 4342 Dec, Major depressive disorder, recurrent episode, mild F33.0 and Anxiety state, unspecified F41.1 [place] [address] [place] [address] 22484- 1127 Dec, Major depressive disorder, recurrent episode, mild F33.0 and Anxiety state, unspecified F41.1 [facility] [address], [place] [address]- 9910 Sep, Major depressive disorder, recurrent episode, mild F33.0 and Anxiety state, unspecified F41.1 [place] [address] [place] [id number] [place] [address] 80471- 0619 Sep, Major depressive disorder, recurrent episode, moderate F33.1 and Anxiety state, unspecified F41.1 [place] [address] [place] [address] 77122- 1608 Aug, Major depressive disorder, recurrent episode, moderate F33.1 and Anxiety state, unspecified F41.1 [place] [address] [place] [address] 39462- 8998 Aug, Major depressive disorder, recurrent episode, moderate F33.1 and Anxiety state, unspecified F41.1 [place] [address] [address]- 7390 Jul, Major depressive disorder, recurrent episode, moderate F33.1 and Anxiety state, unspecified F41.1 [place] [address] [place] [id number] [place] [address] 49424- 5890 Jul, Major depressive disorder, recurrent episode, moderate F33.1 and Anxiety state, unspecified F41.1 [place] [address] [place] [id number] [place] [address] 16171- 2531 Jun, Major depressive disorder, recurrent episode, moderate F33.1 and Anxiety state, unspecified F41.1 [place] [address] [place] [id number] [place] [address] 65582- 0833 Jun, Major depressive disorder, recurrent episode, moderate F33.1 and Anxiety state, unspecified F41.1 [place] [address] [address]- 6266 May, Major depressive disorder, recurrent episode, moderate F33.1 and Anxiety state, unspecified F41.1 [place] [address] [place] [address] 50889- 2155 Apr, Major depressive disorder, recurrent episode, moderate F33.1 and Anxiety state, unspecified F41.1 [place] [address] [place] [id number] [place] [address] 08090- 3224 Apr, Major depressive disorder, recurrent episode, moderate F33.1 and Anxiety state, unspecified F41.1 [place] [address] [address]- 7710 Dec, Major depressive disorder, recurrent episode, moderate F33.1 and Anxiety state, unspecified F41.1 [facility] [address] [id number] [place] [address] 63910- 6672 Dec, Major depressive disorder, recurrent episode, moderate F33.1 and Anxiety state, unspecified F41.1 [facility] [address] [place] [address] [id number] [place] [address] 05506 -9222 Dec, Pharyngitis J02.9 and Acute frontal sinusitis J01.10 [facility] [address] [place] [id number] [place] [address] 06742- 4261 Nov, Bilateral occipital neuralgia M54.81 and Neck muscle spasm M62.838 [place] [address] [place] [id number] [place] [address] 30144- 4639 Nov, Major depressive disorder, recurrent episode, moderate F33.1 and Anxiety state, unspecified F41.1 [place] [address] [place] [id number] [place] [address] 07113- 7809 Sep, Major depressive disorder, recurrent episode, moderate F33.1 and Anxiety state, unspecified F41.1 [place] [address] [place] [id number] [place] [address] 59984- 3617 Aug, Major depressive disorder, recurrent episode, moderate F33.1 and Anxiety state, unspecified F41.1 [place] [address] [place] [id number] [place] [address] 86474- 0234 Jul, Abdominal pain 789.00 ; Hematochezia 578.1 and Weight loss 783.21 [facility] [address] [place] [id number] [place] [address] 08110- 4844 May, [place] [address] [place] [id number] [place] [address] 84788- 6461 March, [place] [address] [place] [id number] [place] [address] 87970- 3197 March, [facility] [address] 71680- 5321 14 Jan, 2014 [facility] [place] [facility] [address] [id number] [place] [address]- 9292 13 Jan, 2014 [facility] [place] [facility] [address] [id number] [place] [address]- 8676 Dec, 2014 [facility] [place] [facility] [address] [facility] [id number] [place] [address]- 2816 Dec, 2014 [facility] [place] [facility] [address] [id number] [place] [address]- 7194 Dec, 2014 [facility] [place] [facility] [address] [id number] [place] [address]- 9462 Dec, 2014 [facility] [place] [facility] [address] [facility] [id number] [place] [address]- 4469 Dec, 2014 [facility] [place] [facility] [address] [facility] [id number] [place] [address]- 9290 Dec, 2014 [facility] [place] [facility] [address] [facility] [id number] [place] [address]- 0237 Jul, 2013 [facility] [place] [facility] [address] [id number] [place] [address]- 2542 25 Jul, 2013 [facility] [place] [facility] [address] [facility] [id number] [place] [address]- 2117 Jul, 2013 [facility] [place] [facility] [address] [facility] [id number] [place] [address] 2548 11 Jul, 2013 [facility] [place] [facility] [address] [id number], [place] [address]- 2544 10 Jul, 2013 [facility] [place] [facility] [address] [id number] [place] [address]- 2544 10 Jul, 2013 [facility] [place] [facility] [address] [facility] [id number] [place] [address]- 2543 09 Jul, 2013 [facility] [place] [facility] [address] [facility] [id number], [place] [address]- 2545 09 Jul, 2013 [facility] [place] [facility] [address] [id number] [place] [address]- 8643 09 Jul, 2013 [facility] [place] [facility] [address] [id number] [place] [address]- 8116 Jul, [facility] [place] [facility] [address] [id number] [place] [address]- 1376 Jul, [facility] [place] [facility] [address] [id number] [place] [address]- 1846 Jul, [facility] [place] [facility] [address] [id number] [place] [address]- 5267 May, [facility] [place] [facility] [address] [id number] [place] [address]- 0193 May, [facility] [place] [facility] [address] [id number] [place] [address]- 0159 Apr, [facility] [place] [facility] [address] [id number] [place] [address]- 9590 Apr, [facility] [place] [facility] [address] [id number] [place] [address]- 3568 Apr, [facility] [place] [facility] [address] [id number] [place] [address]- 6158 Apr, [facility] [place] [facility] [address] [id number] [place] [address]- 8570 March, [facility] [place] [facility] [address] [id number] [place] [address]- 8031 March, [facility] [place] [facility] [address] [id number] [place] 5479 Jan, [facility] [place] [facility] [address] [id number] [place] 3116 Jan, [facility] [place] [facility] [address] [id number] [place] [address]- 2277 Jan, [facility] [place] [facility] [address] [id number] [place] [address]- 7304 Jan, 2014 [facility] [place] [facility] [address] [id number] [place] [address]- 1167 Dec, [facility] [place] [facility] [address] [id number] [place] [address]- 9867 25 Dec, 2013 [facility] [place] [facility] [address] [id number] [place] [address]- 3261 18 Dec, 2013 [facility] [place] [facility] [address] [id number] [place] [address]- 1910 18 Dec, 2013 [facility] [place] [facility] [address] [id number] [place] [address]- 1531 15 Dec, 2013 [facility] [place] [facility] [address] [id number] [place] [address]- 6288 14 Dec, 2013 [facility] [place] [facility] [address] [id number] [place] [address]- 4141 13 Dec, 2013 [facility] [place] [facility] [address] [id number] [place] [address]- 9758 13 Dec, 2013 [facility] [place] [facility] [address] [id number] [place] [address]- 7120 12 Dec, 2013 [facility] [place] [facility] [address] [id number] [place] [address]- 8635 12 Dec, 2013 [facility] [place] [facility] [address] [id number] [place] [address]- 2828 05 Dec, 2013 [facility] [place] [facility] [address] [id number], [place] [address]- 0807 05 Dec, 2013 [facility] [place] [facility] [address] [id number] [place] [address]- 4979 Dec, [facility] [place] [facility] [address] [id number] [place] [address]- 1272 Dec, [facility] [place] [facility] [address] [id number] [place] [address]- 1324 Dec, [facility] [place] [facility] [address] [id number] [place] [address]- 5463 Dec, [facility] [address] [id number] [place] [address]- 6196 Dec, [facility] [place] [facility] [address] [id number] [place] [address]- 4086 Dec, [facility] [address] [id number] [place] [address]- 7536 Nov, [facility] [place] [facility] [address] [id number] [place] [address]- 9474 Nov, [facility] [address] [id number] [place] [address]- 9437 Nov, [facility] [address] [id number] [place] [address]- 7158 Nov, [facility] [address] [id number] [place] [address]- 9722 Nov, [facility] [address] [id number] [place] [address]- 0274 Nov, [facility] [address] [id number] [place] [address]- 1965 Nov, [facility] [address] [id number] [place] [address]- 4476 Nov, [facility] [address] [id number] [place] [address]- 4915 Oct, [facility] [address] [id number] [place] [address]- 1433 Oct, [facility] [place] [facility] [address] [id number] [place] [address]- 9255 Oct, [facility] [place] [facility] [address] [id number] [place] [address]- 9046 Oct, [facility] [place] [facility] [address] [id number] [place] [address]- 5566 Oct, [facility] [place] [facility] [address] [id number] [place] [address]- 6397 Oct, [facility] [place] [facility] [address] [id number] [place] [address]- 6538 Sep, [facility] [place] [facility] [address] [id number] [place] [address]- 5357 Sep, [facility] [place] [facility] [address] [id number] [place] [address]- 2362 Sep, [facility] [place] [facility] [address] [id number] [place] [address]- 1703 Sep, [facility] [place] [facility] [address] [id number] [place] [address]- 3993 Aug, [facility] [place] [facility] [address] [id number] [place] [address]- 3518 Aug, [facility] [place] [facility] [address] [id number] [place] [address]- 3239 Aug, [facility] [place] [facility] [address] [id number] [place] [address]- 6089 Aug, [facility] [place] [facility] [address] [id number], [place] [address]- 8695 Jul, [facility] [place] [facility] [address] [id number], [place] [address]- 4446 Jul, [facility] [place] [facility] [address] [id number], [place] [address]- 8992 Jun, [facility] [place] [facility] [address] [id number] [place] [address] 2545 Jun, [facility] [place] [facility] [address] [id number] [place] [address]- 0546 Apr, [facility] [place] [facility] [address] [id number] [place] [address]- 4922 Apr, [facility] [place] [facility] [address] [id number] [place] [address]- 2240 15 Apr, 2013 [facility] [address] [id number] [place] [address]- 8916 14 Apr, 2013 [facility] [address] [id number] [place] [address]- 3657 March, [facility] [address] [id number] [place] [address]- 4713 March, [facility] [address] [id number] [place] [address]- 4979 March, [facility] [address] [id number] [place] [address]- 5062 Jan, [facility] [address] [id number] [place] [address]- 3419 Jan, [facility] [address] [id number] [place] [address]- 7216 Dec, [facility] [address] [id number] [place] [address]- 0961 Dec, [facility] [address] [id number] [place] [address]- 9157 Dec, [facility] [address] [id number] [place] [address]- 2114 Dec, [facility] [address] [id number] [place] [address]- 9581 Dec, [facility] [address] [id number] [place] [address]- 2548 Dec, [facility] [place] [facility] [address] [id number] [place] [address]- 5342 Nov, [facility] [place] [facility] [address] [id number] [place] [address]- 6706 Nov, [facility] [address] [id number], [place] [address]- 9646 Oct, [facility] [address] [id number] [place] [address]- 5519 Oct, [facility] [place] [facility] [address] [id number] [place] [address]- 5924 Oct, [facility] [place] [facility] [address] [id number] [place] [address]- 2534 Oct, [facility] [place] [facility] [address] [id number] [place] [address]- 5787 Oct, [facility] [address] [id number] [place] [address]- 2843 Oct, [facility] [place] [facility] [address] [id number] [place] [address]- 7926 Oct, [facility] [address] [id number] [place] [address] Oct, [facility] [address] [id number] [place] [address] Oct, [facility] [place] [facility] [address] [id number] [place] [address] Oct, [facility] [place] [facility] [address] [id number] [place] [address] Sep, [facility] [place] [facility] [address] [id number] [place] [address] Sep, [facility] [place] [facility] [address] [id number], [place] [address] Sep, [facility] [place] [facility] [address] [id number] [place] [address] Sep, [facility] [place] [facility] [address] [id number] [place] [address] Aug, [facility] [place] [facility] [address] [id number] [place] [address] Aug, [facility] [place] [facility] [address] [id number] [place] [address] Aug, [facility] [place] [facility] [address] [id number] [place] [address] Jul, [facility] [place] [facility] [address] [id number] [place] [address] Jun, [facility] [place] [facility] [address] [id number] [place] [address] Jun, [facility] [place] [facility] [address] [id number] [place] [address] May, [facility] [place] [facility] [address] [id number] [place] [address] Apr, [facility] [place] [facility] [address] [id number] [place] [address] March, [facility] [place] [facility] [address] [facility] [id number] [place] [address] Jan, [facility] [place] [facility] [address] [id number] [place] [address] Dec, [facility] [place] [facility] [address] [id number] [place] [address] Dec, [facility] [place] [facility] [address] [facility] [id number] [place] [address] Nov, [facility] [place] [facility] [address] [id number] [place] [address] Oct, [facility] [place] [facility] [address] [id number] [place] [address] Oct, [facility] [place] [facility] [address] [id number] [place] [address] Sep, [facility] [place] [facility] [address] [id number] [place] [address] Aug, [facility] [place] [facility] [address] [facility] [id number] [place] [address] Dec, [facility] [place] [facility] [address] [id number], [place] [address] Oct, [facility] [address] [facility] [id number], [place] [address] Oct, [facility] [address] [facility] [id number], [place] [address] Oct, [facility] [address] [facility] [id number], [place] [address] Jun, [facility] [address] [facility] [id number], [place] [address] Jun, [facility] [id number], [place] [address] Oct, [facility] [id number], [place] [address] Sep, [facility] [id number], [place] [address] Sep, [facility] [address] [id number], [place] [address] Sep, [facility] [address] [id number], [place] [address] Aug, [facility] [address] [id number] [id number] Dec, IMMUNIZATIONS No Known Immunizations SOCIAL HISTORY Never Assessed REASON FOR VISIT Lab (walk-in) PLAN OF CARE VITAL SIGNS MEDICATIONS Unknown Medications RESULTS Name Result Date Reference Range PERIPHERAL BLOOD SMEAR 2017-05-25 WBC RBC Appear normal. PLTs Appear normal. Comments/Recommendations Pathologist PROCEDURES Procedure Date Ordered Result Body Site BLOOD SMEAR INTERPRETATION May 25, 2017 VENIPUNCT, ROUTINE* May 25, 2017 INSTRUCTIONS MEDICATIONS ADMINISTERED No Known Medications MEDICAL (GENERAL) HISTORY Type Description Date Medical History GERD Medical History anxiety Medical History depression Surgical History C- section x 2 Surgical History tubal ligation Surgical History hysterectomy 2008 Surgical History cholecystectomy 2013 Surgical History Fibroid removal Hospitalization History inpatient treatment Mirtha SMITH 21 years old Hospitalization History surgeries
--- OUTSIDE RECORDS SUMMARY | 2019-01-13 22:02 | XMS REPORT ---
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 Name Role Phone PADMINI LUJAN Unavailable PROBLEMS Type Condition ICD9-CM Code CKX18-DU Code Onset Dates Condition Status SNOMED Code Problem BMI 35.0-35.9,adult Z68.35 Active 434459665 Problem Tobacco use Z72.0 Active 001089121 Problem Chronic fatigue R53.82 Active 42747268 Problem Prediabetes R73.03 Active 207449593 Problem Chronic reflux esophagitis K21.0 Active 739787073 Problem Carpal tunnel syndrome of right wrist G56.01 Active 62976273 Problem PTSD (post-traumatic stress disorder) F43.10 Active 61378517 Problem 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 57787339 Problem Elevated lymphocytes D72.820 Active 92150057 Problem WILMA (generalized anxiety disorder) F41.1 Active 44115730 Problem Severe episode of recurrent major depressive disorder, without psychotic features F33.2 Active 98207722 ALLERGIES No Information ENCOUNTERS Encounter Location Date Diagnosis [place] [id number] [place] [address] 84880- 6903 Jun, [facility] [id number] [place] [address] 14606- 8742 Jun, [facility] [id number] [place] [address] 33655- 8061 May, [facility] [address] 49463- 8980 Apr, Severe episode of recurrent major depressive disorder, without psychotic features F33.2 ; WILMA (generalized anxiety disorder) F41.1 and PTSD (post-traumatic stress disorder) F43.10 [facility] [address] 44790- 5311 March, Severe episode of recurrent major depressive disorder, without psychotic features F33.2 ; WILMA (generalized anxiety disorder) F41.1 and PTSD (post-traumatic stress disorder) F43.10 [place] [address] [place] [address] 32995- 9799 March, Severe episode of recurrent major depressive disorder, without psychotic features F33.2 ; WILMA (generalized anxiety disorder) F41.1 and PTSD (post-traumatic stress disorder) F43.10 [place] [address] [place] [id number] [place] [address] 39679- 6712 March, [place] [address] [place] [id number] [place] [address] 63823- 2442 Jan, Severe episode of recurrent major depressive disorder, without psychotic features F33.2 ; WILMA (generalized anxiety disorder) F41.1 and PTSD (post-traumatic stress disorder) F43.10 [place] [address] [place] [id number] [place] [address] 32803- 5582 Jan, Carpal tunnel syndrome of right wrist G56.01 [place] [address] [place] [id number] [place] [address] 50242- 0344 Jan, Severe episode of recurrent major depressive disorder, without psychotic features F33.2 ; WILMA (generalized anxiety disorder) F41.1 and PTSD (post-traumatic stress disorder) F43.10 [place] [address] [place] [address] 56127- 0408 Dec, Severe episode of recurrent major depressive disorder, without psychotic features F33.2 ; WILMA (generalized anxiety disorder) F41.1 and PTSD (post-traumatic stress disorder) F43.10 [place] [address] [place] [id number] [place] [address] 25840- 2780 Dec, Severe episode of recurrent major depressive disorder, without psychotic features F33.2 ; WILMA (generalized anxiety disorder) F41.1 and PTSD (post-traumatic stress disorder) F43.10 [place] [address] [place] [id number] [place] [address] 03097- 5692 Dec, Severe episode of recurrent major depressive disorder, without psychotic features F33.2 ; WILMA (generalized anxiety disorder) F41.1 and PTSD (post-traumatic stress disorder) F43.10 [place] [address] [place] [address] 11334- 5952 Dec, Severe episode of recurrent major depressive disorder, without psychotic features F33.2 [place] [address] [place] [id number] [place] [address] 727876- 1322 Dec, Severe episode of recurrent major depressive disorder, without psychotic features F33.2 ; WILMA (generalized anxiety disorder) F41.1 and PTSD (post-traumatic stress disorder) F43.10 [place] [address] [place] [address] 60637- 6401 Dec, Severe episode of recurrent major depressive disorder, without 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 ; WILMA (generalized anxiety disorder) F41.1 and PTSD (post-traumatic stress disorder) F43.10 [place] [address] [place] [address] 79581- 9632 Dec, Severe episode of recurrent major depressive disorder, without psychotic features F33.2 and Anxiety state, unspecified F41.1 [place] [address] [place] [address] 80027- 9167 14 Dec, 2017 Severe episode of recurrent major depressive disorder, without psychotic features F33.2 and Anxiety state, unspecified F41.1 [place] [address] [place] [address] 27043- 6073 Nov, Depression, major, recurrent, moderate F33.1 and Anxiety state, unspecified F41.1 [place] [address] [place] [address] 54802- 0523 Nov, Depression, major, recurrent, moderate F33.1 and Anxiety state, unspecified F41.1 [place] [address] [place] [id number] [place] [address] 04844- 1902 Oct, Depression, major, recurrent, moderate F33.1 and Anxiety state, unspecified F41.1 [place] [address] [place] [id number] [place] [address] 04721- 9997 07 Oct, 2017 Depression, major, recurrent, moderate F33.1 and Post- cholecystectomy syndrome K91.5 [place] [address] [place] [id number] [place] [address] 18162- 0352 Oct, Depression, major, recurrent, moderate F33.1 and Anxiety state, unspecified F41.1 [place] [address] [place] [id number] [place] [address] 06169- 2926 Sep, Depression, major, recurrent, moderate F33.1 and Anxiety state, unspecified F41.1 [place] [address] [place] [id number] [place] [address] 35489- 4705 Sep, Depression, major, recurrent, moderate F33.1 and Anxiety state, unspecified F41.1 [place] [address] [place] [id number] [place] [address] 81685- 7578 Sep, Depression, major, recurrent, moderate F33.1 and Anxiety state, unspecified F41.1 [place] [address] [place] [id number] [place] [address] 30911- 5040 Sep, Diarrhea, unspecified type R19.7 [place] [address] [place] [id number] [place] [address] 14667- 6168 Aug, Depression, major, recurrent, moderate F33.1 and Anxiety state, unspecified F41.1 [place] [address] [place] [id number] [place] [address] 06233- 1074 Aug, Depression, major, recurrent, moderate F33.1 and Anxiety state, unspecified F41.1 [place] [address] [place] [id number] [place] [address]28 Jul, Depression, major, recurrent, moderate F33.1 and Anxiety state, unspecified F41.1 [place] [address] [place] [id number] [place] [address] 2546 Jun, Depression, major, recurrent, moderate F33.1 and Anxiety state, unspecified F41.1 [place] [address] [place] [id number] [place] [address] 78974- 6159 Jun, Generalized abdominal pain R10.84 ; Diarrhea, unspecified type R19.7 ; Acute cystitis without hematuria N30.00 ; Abdominal bloating R14.0 and Elevated blood pressure reading R03.0 [place] [address] [place] [id number] [place] [address] 21097- 5116 Jun, Depression, major, recurrent, moderate F33.1 and Anxiety state, unspecified F41.1 [place] [address] [place] [id number] [place] [address] 6178 May, Depression, major, recurrent, moderate F33.1 and Anxiety state, unspecified F41.1 [place] [address] 65075- 9759 May, Elevated lymphocytes D72.820 [place] [address] [place] [id number] [place] [address] 01607- 1917 May, Elevated lymphocytes D72.820 [place] [address] [place] [id number] [place] [address] 12437- 2883 May, BMI 35.0-35.9,adult Z68.35 ; Other fatigue R53.83 ; Pelvic pain R10.2 ; Tobacco use Z72.0 and Chronic reflux esophagitis K21.0 [place] [address] [place] [id number] [place] [address] 89486- 4279 Apr, [place] [id number] [place] [address] 53207- 0171 Apr, Depression, major, recurrent, moderate F33.1 and Anxiety state, unspecified F41.1 [place] [address] [place] [id number] [place] [address] 94854- 2812 Apr, Depression, major, recurrent, moderate F33.1 and Anxiety state, unspecified F41.1 [place] [address] [place] [id number] [place] [address] 68091- 0184 Apr, [place] [address] [place] [id number] [place] [address] 30874- 4768 March, Major depressive disorder, recurrent episode, mild F33.0 and Anxiety state, unspecified F41.1 [facility] [address] 04680 -7511 March, Sore throat J02.9 and Submandibular lymphadenopathy R59.0 [place] [address] [place] [id number] [place] [address] 07083- 9415 Dec, Major depressive disorder, recurrent episode, mild F33.0 and Anxiety state, unspecified F41.1 [place] [address] [place] [id number] [place] [address] 71366- 0732 Dec, Major depressive disorder, recurrent episode, mild F33.0 and Anxiety state, unspecified F41.1 [place] [address] [place] [id number] [place] [address] 52800- 3869 Dec, Major depressive disorder, recurrent episode, mild F33.0 and Anxiety state, unspecified F41.1 [place] [address] [place] [id number] [place] [address] 10413- 7173 Sep, Major depressive disorder, recurrent episode, mild F33.0 and Anxiety state, unspecified F41.1 [place] [address] [place] [id number] [place] [address] 11476- 3274 Sep, Major depressive disorder, recurrent episode, moderate F33.1 and Anxiety state, unspecified F41.1 [place] [address] [place] [id number] [place] [address] 33697- 6683 Aug, Major depressive disorder, recurrent episode, moderate F33.1 and Anxiety state, unspecified F41.1 [place] [address] [place] [id number] [place] [address] 73463- 8237 Aug, Major depressive disorder, recurrent episode, moderate F33.1 and Anxiety state, unspecified F41.1 [place] [address] [address]- 5908 Jul, Major depressive disorder, recurrent episode, moderate F33.1 and Anxiety state, unspecified F41.1 [place] [address] [address]- 6352 Jul, Major depressive disorder, recurrent episode, moderate F33.1 and Anxiety state, unspecified F41.1 [place] [address] [address]- 5224 Jun, Major depressive disorder, recurrent episode, moderate F33.1 and Anxiety state, unspecified F41.1 [place] [address] [address]- 1396 Jun, Major depressive disorder, recurrent episode, moderate F33.1 and Anxiety state, unspecified F41.1 [place] [address] [address]- 5241 May, Major depressive disorder, recurrent episode, moderate F33.1 and Anxiety state, unspecified F41.1 [place] [address] [address]- 8422 Apr, Major depressive disorder, recurrent episode, moderate F33.1 and Anxiety state, unspecified F41.1 [place] [address] [address]- 3462 Apr, Major depressive disorder, recurrent episode, moderate F33.1 and Anxiety state, unspecified F41.1 [place] [address] [address]- 9542 Dec, Major depressive disorder, recurrent episode, moderate F33.1 and Anxiety state, unspecified F41.1 [place] [address] [address]- 9279 Dec, Major depressive disorder, recurrent episode, moderate F33.1 and Anxiety state, unspecified F41.1 [facility] [address] [place] [address] 42221 -5176 Dec, Pharyngitis J02.9 and Acute frontal sinusitis J01.10 [facility] [address] [id number] [place] [address] 92597- 9070 Nov, Bilateral occipital neuralgia M54.81 and Neck muscle spasm M62.838 [facility] [address] [place] [id number] [place] [address] 58624- 1674 Nov, Major depressive disorder, recurrent episode, moderate F33.1 and Anxiety state, unspecified F41.1 [facility] [address] [place] [id number] [place] [address] 46765- 7930 Sep, Major depressive disorder, recurrent episode, moderate F33.1 and Anxiety state, unspecified F41.1 [facility] [address] [place] [id number] [place] [address] 22518- 3877 Aug, Major depressive disorder, recurrent episode, moderate F33.1 and Anxiety state, unspecified F41.1 [place] [address] [place] [id number] [place] [address] 55227- 3200 Jul, Abdominal pain 789.00 ; Hematochezia 578.1 and Weight loss 783.21 [facility] [address] [place] [id number] [place] [address] 85238- 6905 May, [facility] [address] [place] [id number] [place] [address] 12095- 1052 March, [facility] [address] [place] [id number] [place] [address] 38895- 2968 March, [facility] [address] [place] [id number] [place] [address] 07348- 3538 Jan, [facility] [address] [place] [id number] [place] [address] 29853- 7527 Jan, [facility] [address] [place] [address]- 0219 Dec, 2014 [facility] [place] [facility] [address] [id number] [place] [address]- 9976 Dec, 2014 [facility] [place] [facility] [address] [id number] [place] [address]- 2546 Dec, 2014 [facility] [place] [facility] [address] [id number] [place] [address] 2546 Dec, 2014 [facility] [place] [facility] [address] [id number] [place] [address] 2545 Dec, 2014 [facility] [place] [facility] [address] [id number] [place] [address]- 4979 Dec, 2014 [facility] [place] [facility] [address] [id number] [place] [address]- 2109 Jul, 2013 [facility] [place] [facility] [address] [id number] [place] [address]- 2546 Jul, 2013 [facility] [place] [facility] [address] [id number] [place] [address]- 2541 Jul, 2013 [facility] [place] [facility] [address] [id number] [place] [address] 2546 Jul, 2013 [facility] [place] [facility] [address] [id number] [place] [address]- 2549 10 Jul, 2013 [facility] [place] [facility] [address] [id number] [place] [address] 2546 10 Jul, 2013 [facility] [place] [facility] [address] [id number] [place] [address] 2546 Sep, 2013 [facility] [place] [facility] [address] [id number] [place] [address] 2546 Jul, 2013 [facility] [place] [facility] [address] [id number] [place] [address]- 2546 Jul, 2013 [facility] [place] [facility] [address] [id number] [place] [address] 9503 Jul, [facility] [place] [facility] [address] [id number] [place] [address]- 2168 Jul, [facility] [place] [facility] [address] [id number] [place] [address]- 3016 Jul, [facility] [place] [facility] [address] [id number] [place] [address]- 8424 May, [facility] [place] [facility] [address] [id number] [place] [address]- 0382 May, [facility] [place] [facility] [address] [id number] [place] [address]- 9718 Apr, [facility] [place] [facility] [address] [id number] [place] [address]- 5486 Apr, [facility] [place] [facility] [address] [id number] [place] [address]- 3136 Apr, [facility] [place] [facility] [address] [id number] [place] [address]- 8988 Apr, [facility] [place] [facility] [address] [id number] [place] [address]- 3571 March, [facility] [place] [facility] [address] [id number] [place] [address]- 8479 March, [facility] [place] [facility] [address] [id number] [place] [address]- 3182 Jan, [facility] [place] [facility] [address] [id number], [place] [address]- 9291 Jan, [facility] [place] [facility] [address] [id number] [place] [address]- 6444 Jan, [facility] [place] [facility] [address] [id number] [place] [address]- 5826 Jan, [facility] [place] [facility] [address] [id number] [place] [address]- 9375 Dec, [facility] [place] [facility] [address] [id number], [place] [address]- 1617 25 Dec, 2013 [facility] [place] [facility] [address] [id number] [place] [address]- 9689 18 Dec, 2013 [facility] [place] [facility] [address] [id number] [place] [address]- 0664 18 Dec, 2013 [facility] [place] [facility] [address] [id number] [place] [address]- 6414 15 Dec, 2013 [facility] [place] [facility] [address] [id number] [place] [address]- 1447 14 Dec, 2013 [facility] [place] [facility] [address] [id number] [place] [address]- 7309 13 Dec, 2013 [facility] [place] [facility] [address] [id number] [place] [address]- 8140 13 Dec, 2013 [facility] [place] [facility] [address] [id number] [place] [address]- 5623 12 Dec, 2013 [facility] [place] [facility] [address] [id number] [place] [address]- 8683 12 Dec, 2013 [facility] [place] [facility] [address] [id number] [place] [address]- 8837 05 Dec, 2013 [facility] [place] [facility] [address] [facility] [id number] [place] [address]- 1198 05 Dec, 2013 [facility] [place] [facility] [address] [id number] [place] [address]- 1016 Dec, [facility] [place] [facility] [address] [id number] [place] [address]- 2393 Dec, [facility] [place] [facility] [address] [id number] [place] [address]- 8151 Dec, [facility] [place] [facility] [address] [id number] [place] [address]- 4371 Dec, [facility] [place] [facility] [address] [facility] [id number] [place] [address]- 2884 Dec, [facility] [place] [facility] [address] [id number] [place] [address]- 4027 Dec, [facility] [place] [facility] [address] [id number] [place] [address]- 1388 Nov, [facility] [place] [facility] [address] [id number] [place] [address]- 6518 Nov, [facility] [place] [facility] [address] [id number] [place] [address]- 6680 Nov, [facility] [place] [facility] [address] [id number] [place] [address]- 7911 Nov, [facility] [place] [facility] [address] [id number] [place] [address]- 8274 Nov, [facility] [place] [facility] [address] [id number] [place] [address]- 7355 Nov, [facility] [place] [facility] [address] [id number] [place] [address]- 8154 Nov, [facility] [place] [facility] [address] [id number] [place] [address]- 8543 Nov, [facility] [place] [facility] [address] [id number] [place] [address]- 8404 Oct, [facility] [place] [facility] [address] [id number] [place] [address]- 6856 Oct, [facility] [place] [facility] [address] [id number] [place] [address]- 2697 Oct, [facility] [place] [facility] [address] [id number] [place] [address]- 4772 Oct, [facility] [place] [facility] [address] [id number] [place] [address]- 0794 Oct, [facility] [place] [facility] [address] [id number] [place] [address]- 6699 Oct, [facility] [place] [facility] [address] [id number] [place] [address]- 3386 Sep, [facility] [place] [facility] [address] [id number] [place] [address]- 3054 Sep, [facility] [place] [facility] [address] [id number] [place] [address]- 9900 Sep, [facility] [place] [facility] [address] [id number] [place] [address]- 0229 Sep, [facility] [place] [facility] [address] [id number] [place] [address]- 0736 Aug, [facility] [place] [facility] [address] [id number] [place] [address]- 3420 Aug, [facility] [place] [facility] [address] [id number] [place] [address]- 6626 Aug, [facility] [place] [facility] [address] [id number] [place] [address]- 0471 Aug, [facility] [place] [facility] [address] [id number] [place] [address]- 0884 Jul, [facility] [place] [facility] [address] [id number] [place] [address]- 8443 Jul, [facility] [place] [facility] [address] [id number] [place] [address]- 9969 Jun, [facility] [place] [facility] [address] [id number], [place] [address]- 5104 Jun, [facility] [place] [facility] [address] [id number], [place] [address]- 6512 Apr, [facility] [place] [facility] [address] [id number] [place] [address]- 1790 Apr, [facility] [place] [facility] [address] [id number], [place] [address] 15 Apr, 2013 [facility] [place] [facility] [address] [id number] [place] [address] 14 Apr, 2013 [facility] [place] [facility] [address] [id number] [place] [address] March, [facility] [place] [facility] [address] [id number] [place] [address] March, [facility] [place] [facility] [address] [id number] [place] [address] March, [facility] [place] [facility] [address] [id number] [place] [address] Jan, [facility] [address] [id number] [place] [address] Jan, [facility] [place] [facility] [address] [id number] [place] [address] Dec, [facility] [place] [facility] [address] [id number] [place] [address] Dec, [facility] [place] [facility] [address] [id number] [place] [address] Dec, [facility] [place] [facility] [address] [id number] [place] [address] Dec, [facility] [place] [facility] [address] [id number] [place] [address] Dec, [facility] [place] [facility] [address] [id number] [place] [address] Dec, [facility] [place] [facility] [address] [id number] [place] [address] Nov, [facility] [place] [facility] [address] [id number] [place] [address]- [address] Nov, [facility] [address] [id number] [place] [address] Oct, [facility] [address] [id number] [place] [address] Oct, [facility] [address] [id number] [place] [address] Oct, [facility] [place] [facility] [address] [id number] [place] [address] Oct, [facility] [place] [facility] [address] [id number] [place] [address] Oct, [facility] [place] [facility] [address] [id number] [place] [address] Oct, [facility] [place] [facility] [address] [id number] [place] [address] Oct, [facility] [place] [facility] [address] [id number] [place] [address] Oct, [facility] [place] [facility] [address] [id number] [place] [address] Oct, [facility] [place] [facility] [address] [facility] [id number] [place] [address] Oct, [facility] [place] [facility] [address] [id number], [place] [address] Sep, [facility] [place] [facility] [address] [id number], [place] [address] Sep, [facility] [place] [facility] [address] [id number], [place] [address] Sep, [facility] [place] [facility] [address] [id number], [place] [address] Sep, [facility] [place] [facility] [address] [id number], [place] [address] Aug, [facility] [place] [facility] [address] [id number], [place] [address] Aug, [facility] [place] [facility] [address] [id number], [place] [address] Aug, [facility] [facility] [facility] [address] [facility] [id number], [place] [address] Jul, [facility] [place] [facility] [address] [id number] [place] [address] Jun, [facility] [place] [facility] [address] [id number] [place] [address] Jun, [facility] [place] [facility] [address] [id number] [place] [address] May, [facility] [place] [facility] [address] [id number] [place] [address] Apr, [facility] [place] [facility] [address] [id number] [place] [address] March, [facility] [place] [facility] [address] [id number] [place] [address] Jan, [facility] [place] [facility] [address] [id number] [place] [address] 29 Dec, 2011 [facility] [place] [facility] [address] [id number] [place] [address] Dec, [facility] [place] [facility] [address] [id number] [place] [address] Nov, [facility] [place] [facility] [address] [id number] [place] [address] Oct, [facility] [place] [facility] [address] [id number] [place] [address] Oct, [facility] [place] [facility] [address] [id number] [place] [address] Sep, [facility] [place] [facility] [address] [id number] [place] [address] Aug, [facility] [place] [facility] [address] [id number] [place] [address] Dec, [facility] [place] [facility] [address] [id number] [place] [address] Oct, [facility] [place] [facility] [address] [id number] [place] [address] Oct, [facility] [address] [facility] [id number], [place] [address] Oct, [facility] [address] [facility] [id number], [place] [address] Jun, [facility] [address] [facility] [id number], [place] [address] Jun, [facility] [id number], [place] [address] Oct, [facility] [address] [facility] [id number], [place] [address] Sep, [facility] [id number], [place] [address] Sep, [facility] [id number], [place] [address] Sep, [facility] [id number], [place] [address] Aug, [facility] [address] [id number] [address] Dec, IMMUNIZATIONS No Known Immunizations SOCIAL HISTORY Never Assessed REASON FOR VISIT Follow-up Depression/Anxiety PLAN OF CARE Activity Details Follow Up 1 Week Reason: Follow-up VITAL SIGNS MEDICATIONS Unknown Medications RESULTS No Results PROCEDURES Procedure Date Ordered Result Body Site Psychotherapy, patient &/family, 45 minutes, established patient Dec 16, 2017 INSTRUCTIONS MEDICATIONS ADMINISTERED No Known Medications MEDICAL (GENERAL) HISTORY Type Description Date Medical History GERD Medical History anxiety Medical History depression Surgical History C- section x 2 Surgical History tubal ligation Surgical History hysterectomy 2009 Surgical History cholecystectomy 2014 Surgical History Fibroid removal Hospitalization History inpatient treatment Mritha SMITH 21 years old Hospitalization History surgeries
--- OUTSIDE RECORDS SUMMARY | 2019-01-13 22:02 | XMS REPORT ---
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
--- OUTSIDE RECORDS SUMMARY | 2019-01-13 22:02 | XMS REPORT ---
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 Role Phone PADMINI LUJAN Unavailable PROBLEMS Type Condition ICD9-CM Code EVT04-TG Code Onset Dates Condition Status SNOMED Code Problem Major depressive disorder, recurrent episode, mild F33.0 Active 702089982 Problem Anxiety state, unspecified F41.1 Active 209039917 Problem Chronic reflux esophagitis K21.0 Active 538139505 Assessment Major depressive disorder, recurrent episode, mild F33.0 Sep, Active 383959330 ALLERGIES Unknown Allergies SOCIAL HISTORY No smoking Hx information available PLAN OF CARE VITAL SIGNS MEDICATIONS Unknown Medications RESULTS No Results PROCEDURES Procedure Date Ordered Related Diagnosis Body Site Psychotherapy, patient &/family, 30 minutes, established patient Sep 30, 2016 IMMUNIZATIONS No Known Immunizations
--- OUTSIDE RECORDS SUMMARY | 2019-01-13 22:02 | XMS REPORT ---
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 Phone PADMINI LUJAN CP Unavailable Allergies No Known Allergies Problems Problem Type Condition Code Onset Dates Condition Status Problem Anxiety state, unspecified F41.1 Active Problem Abdominal pain, right upper quadrant 789.01 Active Problem Major depressive disorder, recurrent episode, moderate F33.1 Active Assessment Major depressive disorder, recurrent episode, moderate F33.1 Active Assessment Anxiety state, unspecified F41.1 Active Medications No Known Medications Procedures Procedure Coding System Code Date Psych diagnostic evaluation, established patient CPT-4 49398 Aug 09, 2015 Results No Known Results Summary Purpose eClinicalWorks Submission
--- OUTSIDE RECORDS SUMMARY | 2019-01-13 22:03 | XMS REPORT ---
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 Name Role Phone PADMINI LUJAN Unavailable PROBLEMS Type Condition ICD9-CM Code [id number] Code Onset Dates Condition Status SNOMED Code Problem BMI 35.0-35.9,adult Z68.35 Active 631620282 Problem Tobacco use Z72.0 Active 874331362 Problem Chronic fatigue R53.82 Active 08616220 Problem Prediabetes R73.03 Active 015927335 Problem Chronic reflux esophagitis K21.0 Active 658088698 Problem Carpal tunnel syndrome of right wrist G56.01 Active 34959383 Problem PTSD (post-traumatic stress disorder) F43.10 Active 54389246 Problem 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 62037387 Problem Elevated lymphocytes D72.820 Active 13672287 Problem WILMA (generalized anxiety disorder) F41.1 Active 00662051 Problem Severe episode of recurrent major depressive disorder, without psychotic features F33.2 Active 79047068 ALLERGIES No Information ENCOUNTERS Encounter Location Date Diagnosis [place] [id number] [place] [address] 44600- 4658 May, [facility] [id number] [place] [address] 43619- 9394 Apr, [facility] [id number] [place] [address] 66546- 2015 Apr, [place] [address] [address]- [address] March, Severe episode of recurrent major depressive disorder, without psychotic features F33.2 ; WILMA (generalized anxiety disorder) F41.1 and PTSD (post-traumatic stress disorder) F43.10 [facility] [address] [address]- [address] March, Severe episode of recurrent major depressive disorder, without psychotic features F33.2 ; WILMA (generalized anxiety disorder) F41.1 and PTSD (post-traumatic stress disorder) F43.10 [place] [address] [address] March, [facility] [id number] [place] [address] 37131- 2925 Jan, Severe episode of recurrent major depressive disorder, without psychotic features F33.2 ; WILMA (generalized anxiety disorder) F41.1 and PTSD (post-traumatic stress disorder) F43.10 [place] [id number] [place] [address] 79509- 9624 Jan, Carpal tunnel syndrome of right wrist G56.01 [place] [id number] [place] [address] 60702- 0065 Jan, Severe episode of recurrent major depressive disorder, without psychotic features F33.2 ; WILMA (generalized anxiety disorder) F41.1 and PTSD (post-traumatic stress disorder) F43.10 [place] [address] [place] [address] 39051- 0113 Dec, Severe episode of recurrent major depressive disorder, without psychotic features F33.2 ; WILMA (generalized anxiety disorder) F41.1 and PTSD (post-traumatic stress disorder) F43.10 [place] [address] [place] [address] 06239- 3686 Dec, Severe episode of recurrent major depressive disorder, without psychotic features F33.2 ; WILMA (generalized anxiety disorder) F41.1 and PTSD (post-traumatic stress disorder) F43.10 [place] [id number] [place] [address] 73598- 0990 Dec, Severe episode of recurrent major depressive disorder, without psychotic features F33.2 ; WILMA (generalized anxiety disorder) F41.1 and PTSD (post-traumatic stress disorder) F43.10 [place] [id number] [place] [address] 96350- 9422 Dec, Severe episode of recurrent major depressive disorder, without psychotic features F33.2 [place] [id number] [place] [address]- 2948 Dec, Severe episode of recurrent major depressive disorder, without psychotic features F33.2 ; WILMA (generalized anxiety disorder) F41.1 and PTSD (post-traumatic stress disorder) F43.10 [place] [id number] [place], [place] [address]- [address]34 Dec, Severe episode of recurrent major depressive disorder, without psychotic features F33.2 ; WILMA (generalized anxiety disorder) F41.1 and PTSD (post-traumatic stress disorder) F43.10 [place] [id number] [place] [address]- 7894 Dec, Severe episode of recurrent major depressive disorder, without psychotic features F33.2 and Anxiety state, unspecified F41.1 [place] [id number] [place] [address] 41861- 9234 Dec, Severe episode of recurrent major depressive disorder, without psychotic features F33.2 and Anxiety state, unspecified F41.1 [place] [id number] [place] [address] 91413- 9909 Nov, Depression, major, recurrent, moderate F33.1 and Anxiety state, unspecified F41.1 [place] [id number] [place] [address] 63768- 8676 Nov, Depression, major, recurrent, moderate F33.1 and Anxiety state, unspecified F41.1 [place] [id number] [place] [address] 73326- 0577 Oct, Depression, major, recurrent, moderate F33.1 and Anxiety state, unspecified F41.1 [place] [id number] [place] [address] 64742- 3024 Oct, Depression, major, recurrent, moderate F33.1 and Post- cholecystectomy syndrome K91.5 [place] [id number] [place] [address]- 6[address] 07 Oct, 2017 Depression, major, recurrent, moderate F33.1 and Anxiety state, unspecified F41.1 [place] [id number] [place] 3568 Sep, Depression, major, recurrent, moderate F33.1 and Anxiety state, unspecified F41.1 [place] [id number] [place] [address]- 6817 Sep, Depression, major, recurrent, moderate F33.1 and Anxiety state, unspecified F41.1 [place] [address]246- 1208 Sep, Depression, major, recurrent, moderate F33.1 and Anxiety state, unspecified F41.1 [place]240- 9721 Sep, Diarrhea, unspecified type R19.7 [place] [id number] [place] [address] 01320- 6537 Aug, Depression, major, recurrent, moderate F33.1 and Anxiety state, unspecified F41.1 [place] [id number] [place] [address]- 4718 Aug, Depression, major, recurrent, moderate F33.1 and Anxiety state, unspecified F41.1 [place] [id number] [place]- 5934 Jul, Depression, major, recurrent, moderate F33.1 and Anxiety state, unspecified F41.1 [place] [id number] [place]- 6776 Jun, Depression, major, recurrent, moderate F33.1 and Anxiety state, unspecified F41.1 [place] [id number] [place] [address] 67439- 5545 Jun, Generalized abdominal pain R10.84 ; Diarrhea, unspecified type R19.7 ; Acute cystitis without hematuria N30.00 ; Abdominal bloating R14.0 and Elevated blood pressure reading R03.0 [place] [id number] [place] [address] 60469- 8529 Jun, Depression, major, recurrent, moderate F33.1 and Anxiety state, unspecified F41.[address] 68367- 8248 May, Depression, major, recurrent, moderate F33.1 and Anxiety state, unspecified F41.[address] 87200- 1934 May, Elevated lymphocytes D72.820 [place] [id number] [place] [address] 96107- 0892 May, Elevated lymphocytes D72.820 [place] [id number] [place] [address] 30020- 1569 May, BMI 35.0-35.9,adult Z68.35 ; Other fatigue R53.83 ; Pelvic pain R10.2 ; Tobacco use Z72.0 and Chronic reflux esophagitis K21.0 [place] [id number] [place] [address] 40451- 9552 Apr, [place] [id number] [place] [address] 53828- 0746 Apr, Depression, major, recurrent, moderate F33.1 and Anxiety state, unspecified F41.1 [place] [id number] [place] [address] 83116- 3543 Apr, Depression, major, recurrent, moderate F33.1 and Anxiety state, unspecified F41.1 [place] [id number] [place] [address] 75718- 9308 Apr, [address] 27366- 3981 March, Major depressive disorder, recurrent episode, mild F33.0 and Anxiety state, unspecified F41.1 [facility] [id number] [place] [address] 16985 -3913 March, Sore throat J02.9 and Submandibular lymphadenopathy R59.0 [facility] [id number] [place] [address] 06607- 2350 Dec, Major depressive disorder, recurrent episode, mild F33.0 and Anxiety state, unspecified F41.1 [place] [id number] [place] [address] 11905- 1318 Dec, Major depressive disorder, recurrent episode, mild F33.0 and Anxiety state, unspecified F41.1 [place] [id number] [place] [address] 10433- 6897 Dec, Major depressive disorder, recurrent episode, mild F33.0 and Anxiety state, unspecified F41.1 [place] [id number] [place] [address] 82352- 2984 Sep, Major depressive disorder, recurrent episode, mild F33.0 and Anxiety state, unspecified F41.1 [place] [id number] [place] [address] 28243- 0167 Sep, Major depressive disorder, recurrent episode, moderate F33.1 and Anxiety state, unspecified F41.1 [place] [id number] [place] [address] 17591- 6553 Aug, Major depressive disorder, recurrent episode, moderate F33.1 and Anxiety state, unspecified F41.1 [place] [id number] [place] [address] 06066- 9672 Aug, Major depressive disorder, recurrent episode, moderate F33.1 and Anxiety state, unspecified F41.1 [place] [address] [place] [address] 13644- 6036 Jul, Major depressive disorder, recurrent episode, moderate F33.1 and Anxiety state, unspecified F41.1 [place] [address], [place] [address]- 4007 Jul, Major depressive disorder, recurrent episode, moderate F33.1 and Anxiety state, unspecified F41.1 [place] [address], [place] [address]- 1799 Jun, Major depressive disorder, recurrent episode, moderate F33.1 and Anxiety state, unspecified F41.1 [place] [address], [place] [address]- 3449 Jun, Major depressive disorder, recurrent episode, moderate F33.1 and Anxiety state, unspecified F41.1 [place] [id number] [place] [address] 44307- 0997 May, Major depressive disorder, recurrent episode, moderate F33.1 and Anxiety state, unspecified F41.1 [place] [id number] [place] [address] 55021- 9998 Apr, Major depressive disorder, recurrent episode, moderate F33.1 and Anxiety state, unspecified F41.1 [place] [address] [place] [address] 99293- 1201 Apr, Major depressive disorder, recurrent episode, moderate F33.1 and Anxiety state, unspecified F41.1 [place] [address], [place] [address]- 3582 Dec, Major depressive disorder, recurrent episode, moderate F33.1 and Anxiety state, unspecified F41.1 [place] [address] [address]- 5339 Dec, Major depressive disorder, recurrent episode, moderate F33.1 and Anxiety state, unspecified F41.1 [facility] [address], [place] [address] -8736 Dec, Pharyngitis J02.9 and Acute frontal sinusitis J01.10 [place] [id number] [place] [address] 57868- 0496 Nov, Bilateral occipital neuralgia M54.81 and Neck muscle spasm M62.838 [facility] [id number] [place] [address] 67235- 1701 Nov, Major depressive disorder, recurrent episode, moderate F33.1 and Anxiety state, unspecified F41.1 [facility] [id number] [place] [address] 39873- 0685 Sep, Major depressive disorder, recurrent episode, moderate F33.1 and Anxiety state, unspecified F41.1 [facility] [id number] [place] [address] 32693- 4972 Aug, Major depressive disorder, recurrent episode, moderate F33.1 and Anxiety state, unspecified F41.1 [facility] [id number] [place] [address] 01899- 6508 Jul, Abdominal pain 789.00 ; Hematochezia 578.1 and Weight loss 783.21 [facility] [id number] [place] [address] 26488- 4247 May, [facility] [id number] [place] [address] 31192- 2319 March, [facility] [id number] [place] [address] 79975- 2926 March, [facility] [id number] [place] [address] 19772- 6409 Jan, [facility] [id number] [place] [address] 00912- 2692 Jan, [facility] [id number] [place] [address] 08821- 9953 Dec, [facility] [id number] [place] [address] 31236- 2615 Dec, [facility] [id number] [place] [address] 07372- 2002 Dec, 2014 [facility] [place] [facility] [address] [id number] [place] [address]- 0416 Dec, 2014 [facility] [place] [facility] [address] [id number] [place] [address]- 7346 Dec, 2014 [facility] [place] [facility] [address] [id number] [place] [address]- 8076 Dec, 2014 [facility] [place] [facility] [address] [id number] [place] [address]- 1165 Jul, 2013 [facility] [place] [facility] [address] [id number] [place] [address]- 2804 25 Jul, 2013 [facility] [place] [facility] [address] [id number] [place] [address]- 0693 11 Jul, 2013 [facility] [place] [facility] [address] [id number] [place] [address]- 3313 11 Jul, 2013 [facility] [place] [facility] [address] [id number] [place] [address]- 2543 10 Sep, 2013 [facility] [place] [facility] [address] [id number] [place] [address]- 1193 10 Jul, 2013 [facility] [place] [facility] [address] [id number] [place] [address]- 7006 09 Sep, 2013 [facility] [place] [facility] [address] [id number] [place] [address] 2548 09 Sep, 2013 [facility] [place] [facility] [address] [id number], [place] [address]- 2548 09 Sep, 2013 [facility] [place] [facility] [address] [id number] [place] [address]- 2541 09 Sep, 2013 [facility] [place] [facility] [address] [id number] [place] [address]- 3850 04 Sep, 2013 [facility] [place] [facility] [address] [id number] [place] [address]- 1865 04 Sep, 2013 [facility] [place] [facility] [address] [id number] [place] [address]- 8049 May, [facility] [place] [facility] [address] [id number] [place] [address]- 8794 May, [facility] [place] [facility] [address] [id number] [place] [address]- 9884 Apr, [facility] [place] [facility] [address] [id number] [place] [address]- 3877 Apr, [facility] [place] [facility] [address] [id number] [place] [address]- 3819 Apr, [facility] [place] [facility] [address] [id number] [place] [address]- 6634 Apr, [facility] [place] [facility] [address] [id number] [place] [address]- 3998 March, [facility] [place] [facility] [address] [id number] [place] [address]- 0786 March, [facility] [place] [facility] [address] [id number] [place] 1995 Jan, [facility] [place] [facility] [address] [id number] [place] [address]- 1919 Jan, [facility] [place] [facility] [address] [id number] [place] [address]- 4067 Jan, [facility] [place] [facility] [address] [id number] [place] [address]- 2113 Jan, [facility] [place] [facility] [address] [id number] [place] [address]- 5393 Dec, [facility] [place] [facility] [address] [id number] [place] [address]- 4194 Dec, [facility] [place] [facility] [address] [id number] [place] [address]- 9289 Dec, [facility] [place] [facility] [address] [id number] [place] [address]- 8599 18 Dec, 2013 [facility] [place] [facility] [address] [id number] [place] [address]- 1346 15 Dec, 2013 [facility] [place] [facility] [address] [id number] [place] [address]- 2745 14 Dec, 2013 [facility] [place] [facility] [address] [id number] [place] [address]- 1107 13 Dec, 2013 [facility] [place] [facility] [address] [id number] [place] [address]- 6267 13 Dec, 2013 [facility] [place] [facility] [address] [id number] [place] [address]- 5404 12 Dec, 2013 [facility] [place] [facility] [address] [id number] [place] [address]- 0948 12 Dec, 2013 [facility] [place] [facility] [address] [id number] [place] [address]- 1330 05 Dec, 2013 [facility] [place] [facility] [address] [id number] [place] [address]- 4380 05 Dec, 2013 [facility] [place] [facility] [address] [id number] [place] [address]- 4085 Dec, [facility] [place] [facility] [address] [id number] [place] [address]- 3653 Dec, [facility] [place] [facility] [address] [id number] [place] [address]- 3314 Dec, [facility] [place] [facility] [address] [id number] [place] [address]- 4680 Dec, [facility] [place] [facility] [address] [id number] [place] [address]- 5598 Dec, [facility] [place] [facility] [address] [id number] [place] [address]- 6561 Dec, [facility] [place] [facility] [address] [id number] [place] [address]- 4791 Nov, [facility] [place] [facility] [address] [id number] [place] [address]- 6377 Nov, [facility] [address] [id number] [place] [address]- 7475 Nov, [facility] [address] [id number] [place] [address]- 1826 Nov, [facility] [address] [id number] [place] [address]- 0446 Nov, [facility] [address] [id number] [place] [address]- 1765 Nov, [facility] [address] [id number] [place] [address]- 7681 Nov, [facility] [address] [id number] [place] [address]- 0716 Nov, [facility] [address] [id number] [place] [address]- 8711 Oct, [facility] [address] [id number] [place] [address]- 1650 Oct, [facility] [address] [id number] [place] [address]- 4351 Oct, [facility] [address] [id number] [place] [address]- 9262 Oct, [facility] [address] [id number] [place] [address]- 2546 Oct, [facility] [address] [id number] [place] [address]- 2546 Oct, [facility] [place] [facility] [address] [id number] [place] [address]- 5096 Sep, [facility] [place] [facility] [address] [id number] [place] [address]- 2546 Sep, [facility] [address] [id number] [place] [address]- 9696 Sep, [facility] [place] [facility] [address] [id number] [place] [address]- 6379 Sep, [facility] [place] [facility] [address] [id number] [place] [address]- 9350 Aug, [facility] [place] [facility] [address] [id number] [place] [address]- 3085 Aug, [facility] [place] [facility] [address] [id number] [place] [address]- 4365 Aug, [facility] [place] [facility] [address] [id number] [place] 2989 Aug, [facility] [place] [facility] [address] [id number] [place] 2464 Jul, [facility] [place] [facility] [address] [id number] [place] [address]- 8447 Jul, [facility] [place] [facility] [address] [id number] [place] [address]- 4988 Jun, [facility] [place] [facility] [address] [id number] [place] 2315 Jun, [facility] [place] [facility] [address] [id number], [place] [address]- 5486 Apr, [facility] [place] [facility] [address] [id number], [place] [address]- 7452 Apr, [facility] [place] [facility] [address] [id number], [place] [address]- 3151 15 Apr, 2013 [facility] [place] [facility] [address] [id number] [place] [address]- 9012 Apr, [facility] [place] [facility] [address] [id number], [place] [address]- 0086 30 Mar, 2013 [facility] [place] [facility] [address] [id number], [place] [address]- 2645 March, [facility] [place] [facility] [address] [id number], [place] [address]- 1928 March, [facility] [address] [id number] [place] [address]- 8416 Jan, [facility] [address] [id number] [place] [address]- 0416 Jan, [facility] [address] [id number] [place] [address]- 0796 Dec, [facility] [address] [id number] [place] [address]- 4859 Dec, [facility] [address] [id number] [place] [address]- 2746 Dec, [facility] [address] [id number] [place] [address]- 0056 Dec, [facility] [address] [id number] [place] [address] Dec, [facility] [address] [id number] [place] [address] Dec, [facility] [address] [id number] [place] [address] Nov, [facility] [address] [facility] [id number] [place] [address] Nov, [facility] [address] [id number] [place] [address] Oct, [facility] [address] [id number] [place] [address] Oct, [facility] [place] [facility] [address] [id number] [place] [address] Oct, [facility] [address] [id number] [place] [address] Oct, [facility] [address] [id number] [place] [address] Oct, [facility] [place] [facility] [address] [id number] [place] [address] Oct, [facility] [place] [facility] [address] [id number] [place] [address] Oct, [facility] [place] [facility] [address] [id number] [place] [address] Oct, [facility] [place] [facility] [address] [id number] [place] [address] Oct, [facility] [place] [facility] [address] [id number] [place] [address] Oct, [facility] [place] [facility] [address] [id number] [place] [address] Sep, [facility] [place] [facility] [address] [id number] [place] [address] Sep, [facility] [place] [facility] [address] [id number] [place] [address] Sep, [facility] [place] [facility] [address] [id number] [place] [address] Sep, [facility] [place] [facility] [address] [id number] [place] [address] Aug, [facility] [place] [facility] [address] [id number] [place] [address] Aug, [facility] [place] [facility] [address] [id number] [place] [address] Aug, [facility] [place] [facility] [address] [id number] [place] [address] Jul, [facility] [place] [facility] [address] [id number] [place] [address] Jun, [facility] [place] [facility] [address] [id number] [place] [address] Jun, [facility] [place] [facility] [address] [id number] [place] [address] May, [facility] [address] [id number] [place] [address] Apr, [facility] [place] [facility] [address] [id number] [place] [address] March, [facility] [place] [facility] [address] [id number] [place] [address] Jan, [facility] [place] [facility] [address] [id number] [place] [address] Dec, [facility] [place] [facility] [address] [id number] [place] [address] Dec, [facility] [place] [facility] [address] [id number] [place] [address] Nov, [facility] [address] [address] [id number] [place] [address] Oct, [facility] [place] [facility] [address] [id number] [place] [address] Oct, [facility] [place] [facility] [address] [id number] [place] [address] Sep, [facility] [place] [facility] [address] [id number] [place] [address] Aug, [facility] [place] [facility] [address] [id number] [place] [address] Dec, [facility] [place] [facility] [address] [id number] [place] [address] Oct, [facility] [place] [facility] [address] [id number] [place] [address] Oct, [facility] [place] [facility] [address] [id number] [place] [address] Oct, [facility] [place] [facility] [address] [id number] [place] [address] Jun, [facility] [place] [facility] [address] [id number] [place] [address] Jun, [facility] [address] [id number] [address] Oct, [facility] [id number] [address] Sep, [facility] [address] [id number], [place] [address] Sep, [facility] [id number], [place] [address] Sep, [facility] [address] [id number], [place] [address] Aug, [facility] [id number], [place] [address] Dec, IMMUNIZATIONS No Known Immunizations SOCIAL HISTORY Never Assessed REASON FOR VISIT Follow-up Depression/Anxiety PLAN OF CARE Activity Details Follow Up 2 Weeks Reason: Follow-up VITAL SIGNS MEDICATIONS Unknown Medications RESULTS No Results PROCEDURES Procedure Date Ordered Result Body Site Psychotherapy, patient &/family, 45 minutes, established patient Oct 01, 2017 INSTRUCTIONS MEDICATIONS ADMINISTERED No Known Medications MEDICAL (GENERAL) HISTORY Type Description Date Medical History GERD Medical History anxiety Medical History depression Surgical History C- section x 2 Surgical History tubal ligation Surgical History hysterectomy 2008 Surgical History cholecystectomy 2013 Surgical History Fibroid removal Hospitalization History inpatient treatment Mirtha SMITH 21 years old Hospitalization History surgeries
--- OUTSIDE RECORDS SUMMARY | 2019-01-13 22:03 | XMS REPORT ---
Author Author PADMINI LUJAN [facility] Address [address] [place] [address] Care Team Providers Care Online Advertising Manager Name Role Phone PADMINI LUJAN Unavailable PROBLEMS Type Condition ICD9-CM Code [id number] Code Onset Dates Condition Status SNOMED Code Problem Anxiety state, unspecified F41.1 Active 226362764 Problem Chronic reflux esophagitis K21.0 Active 118193331 Assessment Major depressive disorder, recurrent episode, moderate F33.1 Jul, Active [id number] ALLERGIES Unknown Allergies SOCIAL HISTORY No smoking Hx information available PLAN OF CARE VITAL SIGNS MEDICATIONS Unknown Medications RESULTS No Results PROCEDURES Procedure Date Ordered Related Diagnosis Body Site Psychotherapy, patient &/family, 45 minutes, established patient Jul 14, 2016 IMMUNIZATIONS No Known Immunizations
--- OUTSIDE RECORDS SUMMARY | 2019-01-13 22:03 | XMS REPORT ---
Author Author KHOI FIDEL [facility] Address [address] [place] [address] Care Team Providers Care Postdoctoral Fellow Name Role Phone FIDEL WESTFALL Unavailable PROBLEMS Type Condition ICD9-CM Code QOC49-HP Code Onset Dates Condition Status SNOMED Code Problem Chronic reflux esophagitis K21.0 Active 251125773 Problem Chronic fatigue R53.82 Active 70140743 Problem BMI 35.0-35.9,adult Z68.35 Active 241562097 Problem Prediabetes R73.03 Active 234995575 Problem PTSD (post-traumatic stress disorder) F43.10 Active 00386022 Problem WILMA (generalized anxiety disorder) F41.1 Active 44900466 Problem Elevated lymphocytes D72.820 Active 68801033 Problem Tobacco use Z72.0 Active 685709543 Problem Severe episode of recurrent major depressive disorder, without psychotic features F33.2 Active 94327920 Problem 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 40728707 ALLERGIES Substance Reaction Event Type Date Status Latex rash Drug Allergy May, Active Citalopram 20 Mg Tablet Fatigue, "foggy", decreased sex drive Non Drug Allergy May, Active ENCOUNTERS Encounter Location Date Diagnosis [facility] [id number] [address] Apr, [facility] [id number], [place] [address] Jan, [facility] [id number] [place] [address] 39943- 4476 Jan, [facility] [id number] [place] [address] 15081- 3445 Dec, Severe episode of recurrent major depressive disorder, without psychotic features F33.2 ; WILMA (generalized anxiety disorder) F41.1 and PTSD (post-traumatic stress disorder) F43.10 [id number], [place] [address] Dec, Severe episode of recurrent major depressive disorder, without psychotic features F33.2 ; WILMA (generalized anxiety disorder) F41.1 and PTSD (post-traumatic stress disorder) F43.10 [id number] [place] [address] 07515- 5307 Dec, Severe episode of recurrent major depressive disorder, without psychotic features F33.2 ; WILMA (generalized anxiety disorder) F41.1 and PTSD (post-traumatic stress disorder) F43.10 [id number] [place] [address] 46495- 4625 Dec, Severe episode of recurrent major depressive disorder, without psychotic features F33.2 [id number] [place] [address] 33837- 2829 Dec, Severe episode of recurrent major depressive disorder, without psychotic features F33.2 ; WILMA (generalized anxiety disorder) F41.1 and PTSD (post-traumatic stress disorder) F43.10 [address] [place] [address] 42111- 4879 Dec, Severe episode of recurrent major depressive disorder, without psychotic features F33.2 ; WILMA (generalized anxiety disorder) F41.1 and PTSD (post-traumatic stress disorder) F43.10 [id number] [place] [address] 09882- 8606 Dec, Severe episode of recurrent major depressive disorder, without psychotic features F33.2 and Anxiety state, unspecified F41.1 [address] [place] [address] 62411- 9990 14 Dec, 2017 Severe episode of recurrent major depressive disorder, without psychotic features F33.2 and Anxiety state, unspecified F41.1 [id number] [place] [address] 91651- 7160 Nov, Depression, major, recurrent, moderate F33.1 and Anxiety state, unspecified F41.1 [id number] [place] [id number] Nov, Depression, major, recurrent, moderate F33.1 and Anxiety state, unspecified F41.1 [id number] [place] [id number] Oct, Depression, major, recurrent, moderate F33.1 and Anxiety state, unspecified F41.1 [id number] [place] [address] [address]447 Oct, Depression, major, recurrent, moderate F33.1 and Post- cholecystectomy syndrome K91.5 [id number] [place] [address] 848058- 8801 Oct, Depression, major, recurrent, moderate F33.1 and Anxiety state, unspecified F41.1 [id number] [place] [address] 47610- 2727 Sep, Depression, major, recurrent, moderate F33.1 and Anxiety state, unspecified F41.1 [id number] [place] [address] 99969- 2619 Sep, Depression, major, recurrent, moderate F33.1 and Anxiety state, unspecified F41.1 [address] [place] [id number] [place] [address] 44376- 2682 Sep, Depression, major, recurrent, moderate F33.1 and Anxiety state, unspecified F41.1 [id number] [place] [address] 83930- 7244 Sep, Diarrhea, unspecified type R19.7 [id number] [place] [address] [address]483 Aug, Depression, major, recurrent, moderate F33.1 and Anxiety state, unspecified F41.1 [id number] [place] [address] 28355- 7725 Aug, Depression, major, recurrent, moderate F33.1 and Anxiety state, unspecified F41.1 [id number] [place] [address] 38117- 4149 Jul, Depression, major, recurrent, moderate F33.1 and Anxiety state, unspecified F41.1 [id number] [place] [address] 34929- 4022 Jun, Depression, major, recurrent, moderate F33.1 and Anxiety state, unspecified F41.1 [address] [address]- 8518 Jun, Generalized abdominal pain R10.84 ; Diarrhea, unspecified type R19.7 ; Acute cystitis without hematuria N30.00 ; Abdominal bloating R14.0 and Elevated blood pressure reading R03.0 [id number] [place] [address] 47484- 7327 Jun, Depression, major, recurrent, moderate F33.1 and Anxiety state, unspecified F41.1 [address] [place] [id number] [place] [address] 06428- 4321 May, Depression, major, recurrent, moderate F33.1 and Anxiety state, unspecified F41.1 [id number] [place] [address] 04673- 8359 May, Elevated lymphocytes D72.820 [id number] [place] [address] [address]01 May, Elevated lymphocytes D72.820 [id number] [place] [address] 81477- 6680 May, BMI 35.0-35.9,adult Z68.35 ; Other fatigue R53.83 ; Pelvic pain R10.2 ; Tobacco use Z72.0 and Chronic reflux esophagitis K21.0 [id number] [place] [address] 03840- 3768 Apr, [facility] [address] [address]- 8288 Apr, Depression, major, recurrent, moderate F33.1 and Anxiety state, unspecified F41.1 [address], [place] [address]- 8690 14 Apr, 2017 Depression, major, recurrent, moderate F33.1 and Anxiety state, unspecified F41.1 [address] [place] [id number] [place] [address] 29904- 9764 Apr, [address] [place] [id number] [place] [address] 29356- 3287 March, Major depressive disorder, recurrent episode, mild F33.0 and Anxiety state, unspecified F41.1 [facility] [address] [address] March, Sore throat J02.9 and Submandibular lymphadenopathy R59.0 [address], [place] [address]- 4890 Dec, Major depressive disorder, recurrent episode, mild F33.0 and Anxiety state, unspecified F41.1 [address] [place] [address] 73981- 4158 Dec, Major depressive disorder, recurrent episode, mild F33.0 and Anxiety state, unspecified F41.1 [address] [address]- 4120 Dec, Major depressive disorder, recurrent episode, mild F33.0 and Anxiety state, unspecified F41.1 [address] [place] [address] 78512- 4641 Sep, Major depressive disorder, recurrent episode, mild F33.0 and Anxiety state, unspecified F41.1 [address] [address]- 7368 Sep, Major depressive disorder, recurrent episode, moderate F33.1 and Anxiety state, unspecified F41.1 [address] [address]- 9856 Aug, Major depressive disorder, recurrent episode, moderate F33.1 and Anxiety state, unspecified F41.1 [address] [address]- 7933 Aug, Major depressive disorder, recurrent episode, moderate F33.1 and Anxiety state, unspecified F41.1 [address] [place] [id number] [place] [address] 04353- 9313 Jul, Major depressive disorder, recurrent episode, moderate F33.1 and Anxiety state, unspecified F41.1 [place] [place] [id number] [place] [address] 15237- 5226 Jul, Major depressive disorder, recurrent episode, moderate F33.1 and Anxiety state, unspecified F41.1 [address] [place] [id number] [place] [address] 90443- 5345 Jun, Major depressive disorder, recurrent episode, moderate F33.1 and Anxiety state, unspecified F41.1 [address] [place] [id number] [place] [address] 53518- 6968 Jun, Major depressive disorder, recurrent episode, moderate F33.1 and Anxiety state, unspecified F41.1 [address], [place] [address]- 3216 May, Major depressive disorder, recurrent episode, moderate F33.1 and Anxiety state, unspecified F41.1 [address] [address]- 4530 Apr, Major depressive disorder, recurrent episode, moderate F33.1 and Anxiety state, unspecified F41.1 [address], [place] [address]- 0881 Apr, Major depressive disorder, recurrent episode, moderate F33.1 and Anxiety state, unspecified F41.1 [address], [place] [address]- 2269 Dec, Major depressive disorder, recurrent episode, moderate F33.1 and Anxiety state, unspecified F41.1 [facility] [id number] [place] [address] 28598- 8636 Dec, Major depressive disorder, recurrent episode, moderate F33.1 and Anxiety state, unspecified F41.1 [facility] [id number] [place] [address] 40153 -3565 Dec, Pharyngitis J02.9 and Acute frontal sinusitis J01.10 [address] [place] [id number] [place] [address] 58384- 9985 Nov, Bilateral occipital neuralgia M54.81 and Neck muscle spasm M62.838 [address] [place] [id number] [place] [address] 66985- 9040 Nov, Major depressive disorder, recurrent episode, moderate F33.1 and Anxiety state, unspecified F41.1 [address] [place] [id number] [place] [address] 14175- 9055 Sep, Major depressive disorder, recurrent episode, moderate F33.1 and Anxiety state, unspecified F41.1 [address] [place] [id number] [place] [address] 57289- 7015 Aug, Major depressive disorder, recurrent episode, moderate F33.1 and Anxiety state, unspecified F41.1 [address] [place] [address] [place] [address] 18834- 6830 Jul, Abdominal pain 789.00 ; Hematochezia 578.1 and Weight loss 783.21 [address] [id number] [place] [address] 34695- 4667 May, [address] [place] [id number] [place] [address] 72093- 1298 March, [address] [id number] [place] [address] [place] [address]- 9857 March, [facility] [place] [facility] [address] [id number] [place] [address]- 4734 14 Jan, 2014 [facility] [place] [facility] [address] [id number] [place] [address]- 0025 Jan, 2014 [facility] [place] [facility] [address] [id number] [place] [address]- 4026 Dec, 2014 [facility] [place] [facility] [address] [id number] [place] [address]- 2316 Dec, 2014 [facility] [place] [facility] [address] [id number] [place] [address]- 1746 Dec, 2014 [facility] [place] [facility] [address] [id number] [place] [address]- 0818 Dec, 2014 [facility] [place] [facility] [address] [facility] [id number] [place] [address]- 1132 Dec, 2014 [facility] [place] [facility] [address] [id number] [place] [address]- 2462 Dec, 2014 [facility] [place] [facility] [address] [id number] [place] [address]- 5356 Jul, 2013 [facility] [place] [facility] [address] [id number] [place] [address]- 1779 25 Jul, 2013 [facility] [place] [facility] [address] [id number] [place] [address] 2546 11 Jul, 2013 [facility] [place] [facility] [address] [id number] [place] [address]- 2549 11 Jul, 2013 [facility] [place] [facility] [address] [id number] [place] [address] 2543 10 Jul, 2013 [facility] [place] [facility] [address] [id number] [place] [address]- 2547 10 Jul, 2013 [facility] [place] [facility] [address] [facility] [id number] [place] [address]- 3714 Jul, 2013 [facility] [place] [facility] [address] [id number] [place] [address]- 6681 Jul, 2013 [facility] [place] [facility] [address] [id number] [place] [address]- 1656 Jul, [facility] [place] [facility] [address] [id number] [place] [address]- 3097 Jul, [facility] [place] [facility] [address] [id number] [place] [address]- 4856 Jul, [facility] [place] [facility] [address] [id number] [place] [address]- 1199 Jul, [facility] [place] [facility] [address] [id number] [place] [address]- 9496 May, [facility] [place] [facility] [address] [id number] [place] [address]- 8495 May, [facility] [place] [facility] [address] [id number] [place] [address]- 9807 Apr, [facility] [place] [facility] [address] [id number] [place] [address]- 5732 Apr, [facility] [place] [facility] [address] [id number] [place] [address]- 2898 Apr, [facility] [place] [facility] [address] [id number] [place] [address]- 3930 Apr, [facility] [place] [facility] [address] [id number] [address]- 1684 March, [facility] [place] [facility] [address] [id number] [place] [address]- 0051 March, [facility] [place] [facility] [address] [id number] [place] 8880 Jan, [facility] [place] [facility] [address] [id number], [place] [address]- 8376 Jan, [facility] [place] [facility] [address] [id number], [place] [address]- 7204 04 Jan, 2014 [facility] [place] [facility] [address] [id number] [place] [address]- 8426 Jan, [facility] [place] [facility] [address] [id number] [place] [address]- 7015 Dec, [facility] [place] [facility] [address] [id number] [place] [address]- 8750 25 Dec, 2013 [facility] [place] [facility] [address] [id number] [place] [address]- 8167 18 Dec, 2013 [facility] [place] [facility] [address] [id number] [place] [address]- 0309 18 Dec, 2013 [facility] [place] [facility] [address] [id number] [place] [address]- 6679 15 Dec, 2013 [facility] [place] [facility] [address] [id number] [place] [address]- 3601 14 Dec, 2013 [facility] [place] [facility] [address] [id number] [place] [address]- 6104 13 Dec, 2013 [facility] [place] [facility] [address] [id number] [place] [address]- 5189 13 Dec, 2013 [facility] [place] [facility] [address] [id number] [place] [address]- 4579 12 Dec, 2013 [facility] [place] [facility] [address] [id number] [place] [address]- 6390 12 Dec, 2013 [facility] [place] [facility] [address] [id number] [place] [address]- 6272 05 Dec, 2013 [facility] [place] [facility] [address] [id number] [place] [address]- 5998 05 Dec, 2013 [facility] [place] [facility] [address] [id number] [place] [address]- 9840 03 Dec, 2013 [facility] [place] [facility] [address] [id number] [place] [address]- 6852 03 Dec, 2013 [facility] [place] [facility] [address] [id number] [place] [address]- 7225 Dec, [facility] [place] [facility] [address] [id number] [place] [address]- 5667 Dec, [facility] [place] [facility] [address] [id number] [place] [address]- 8187 Dec, [facility] [place] [facility] [address] [id number] [place] [address]- 6617 Dec, [facility] [place] [facility] [address] [id number] [place] [address]- 0884 Nov, [facility] [place] [facility] [address] [id number] [place] [address]- 1038 Nov, [facility] [place] [facility] [address] [id number] [place] [address]- 5041 Nov, [facility] [place] [facility] [address] [id number] [place] [address]- 4512 Nov, [facility] [place] [facility] [address] [id number] [place] [address]- 4244 Nov, [facility] [place] [facility] [address] [id number] [place] [address]- 3821 Nov, [facility] [place] [facility] [address] [id number] [place] [address]- 7862 Nov, [facility] [place] [facility] [address] [id number] [place] [address]- 7949 Nov, [facility] [place] [facility] [address] [id number] [place] [address]- 3503 Oct, [facility] [place] [facility] [address] [id number] [place] [address]- 6475 Oct, [facility] [place] [facility] [address] [id number] [place] [address]- 6296 Oct, [facility] [place] [facility] [address] [id number], [place] [address]- 6416 Oct, [facility] [place] [facility] [address] [id number] [place] [address]- 9746 Oct, [facility] [place] [facility] [address] [id number] [place] [address]- 7696 Oct, [facility] [place] [facility] [address] [id number] [place] [address]- 3749 Sep, [facility] [place] [facility] [address] [id number] [place] [address]- 9060 Sep, [facility] [place] [facility] [address] [id number] [place] [address]- 0943 Sep, [facility] [place] [facility] [address] [id number] [place] [address]- 1502 Sep, [facility] [place] [facility] [address] [id number] [place] [address]- 8618 Aug, [facility] [place] [facility] [address] [id number] [place] [address]- 5755 Aug, [facility] [place] [facility] [address] [id number] [place] [address]- 2968 Aug, [facility] [place] [facility] [address] [id number] [place] [address]- 4126 Aug, [facility] [place] [facility] [address] [id number], [place] [address]- 3823 Jul, [facility] [place] [facility] [address] [id number], [place] [address] 2544 Jul, [facility] [place] [facility] [address] [id number] [place] [address] 254 Jun, [facility] [place] [facility] [address] [id number], [place] [address]- 2546 Jun, [facility] [place] [facility] [address] [id number] [place] [address]- 254 Apr, [facility] [place] [facility] [address] [id number] [place] [address]- 2491 20 Apr, 2013 [facility] [address] [id number] [place] [address]- 5090 15 Apr, 2013 [facility] [address] [id number] [place] [address]- 9686 14 Apr, 2013 [facility] [address] [id number] [place] [address]- 6576 March, [facility] [address] [id number] [place] [address] 2543 March, [facility] [address] [id number] [place] [address]- 2806 March, [facility] [address] [id number] [place] [address]- 9976 Jan, [facility] [address] [id number] [place] [address]- 6685 Jan, [facility] [address] [id number] [place] [address]- 6701 Dec, [facility] [address] [id number] [place] [address]- 5196 Dec, [facility] [address] [id number] [place] [address]- 2546 Dec, [facility] [address] [id number] [place] [address]- 6966 Dec, [facility] [address] [id number] [place] [address]- 2546 Dec, [facility] [address] [id number] [place] [address]- 2546 Dec, [facility] [address] [id number] [place] [address]- 2546 Nov, [facility] [address] [id number] [place] [address]- 2728 Nov, [facility] [address] [id number] [place] [address]- 1919 Oct, [facility] [place] [facility] [address] [id number] [place] [address]- 6641 Oct, [facility] [place] [facility] [address] [id number] [place] [address] Oct, [facility] [place] [facility] [address] [id number] [place] [address] Oct, [facility] [place] [facility] [address] [id number] [place] [address] Oct, [facility] [place] [facility] [address] [id number] [place] [address] Oct, [facility] [place] [facility] [address] [facility] [id number] [place] [address] Oct, [facility] [place] [facility] [address] [id number] [place] [address] Oct, [facility] [place] [facility] [address] [id number] [place] [address] Oct, [facility] [place] [facility] [address] [id number] [place] [address] Oct, [facility] [place] [facility] [address] [id number] [address] Sep, [facility] [place] [facility] [address] [id number], [place] [address] Sep, [facility] [place] [facility] [address] [id number] [place] [address] Sep, [facility] [place] [facility] [address] [id number], [place] [address] Sep, [facility] [place] [facility] [address] [id number] [place] [address] Aug, [facility] [place] [facility] [address] [id number] [place] [address] Aug, [facility] [place] [facility] [address] [id number] [place] [address] Aug, [facility] [place] [facility] [address] [id number] [place] [address] Jul, [facility] [place] [facility] [address] [id number] [place] [address] Jun, [facility] [place] [facility] [address] [id number] [place] [address] Jun, [facility] [place] [facility] [address] [id number] [place] [address] May, [facility] [place] [facility] [address] [id number] [place] [address] Apr, [facility] [place] [facility] [address] [id number] [place] [address] March, [facility] [place] [facility] [address] [id number] [place] [address] Jan, [facility] [place] [facility] [address] [id number] [place] [address] Dec, [facility] [place] [facility] [address] [facility] [id number] [place] [address] Dec, [facility] [place] [facility] [address] [facility] [id number] [place] [address] Nov, [facility] [place] [facility] [address] [id number] [place] [address] Oct, [facility] [place] [facility] [address] [id number] [place] [address] Oct, [facility] [place] [facility] [address] [id number] [place] [address] Sep, [facility] [place] [facility] [address] [id number] [place] [address] Aug, [facility] [id number] [address] Dec, [facility] [id number] [address] Oct, [facility] [id number] [address] Oct, [facility] [id number] [address] Oct, [facility] [facility] [id number] [address] Jun, [facility] [id number] [address] Jun, [facility] [address] [address] Oct, [facility] [id number] [address] Sep, [facility] [id number], [place] [address] Sep, [facility] [id number], [place] [address] Sep, [facility] [id number], [place] [address] Aug, [facility] [id number], [place] [address] Dec, IMMUNIZATIONS No Known Immunizations SOCIAL HISTORY Never Assessed REASON FOR VISIT Annual physical (female)---[place],CCMA, pt. states right ovary pain that comes and goes. started couple months ago, pt. states having trouble losing weight and is tired all the time PLAN OF CARE Activity Details Follow Up 4 Weeks Reason:weight management VITAL SIGNS Height 60 in 2017-05-21 Weight 180.9 lbs 2017-05-21 Temperature 98.4 degrees Fahrenheit 2017-05-21 Heart Rate 80 bpm 2017-05-21 Respiratory Rate 18 2017-05-21 BMI 35.33 kg/m2 2017-05-21 Blood pressure systolic 124 mmHg 2017-05-21 Blood pressure diastolic 82 mmHg 2017-05-21 MEDICATIONS Medication Instructions Dosage Frequency Start Date End Date Duration Status Contrave 8-90 MG Orally 1 tablet barpwi0i, 1 tablet BID x7day, 2 tab qam and 1 qhs x7d, then 2 tab BID 1 tablet May, Jun, 30 day(s) Active Pantoprazole Sodium 40 mg Orally Once a day 1 tablet 24h 30 days Active Fluticasone Propionate 50 MCG/ACT Nasally Once a day 1 spray in each nostril 24h Dec, 14 days Active RESULTS Name Result Date Reference Range TSH 2017-05-21 TSH 1.370 0.450-4.500 CBC 2017-05-21 WBC 7.6 3.4-10.8 RBC 4.73 3.77-5.28 Hemoglobin 14.8 11.1-15.9 Hematocrit 43.7 34.0-46.6 MCV 92 79-97 MCH 31.3 26.6-33.0 MCHC 33.9 31.5-35.7 RDW 13.2 12.3-15.4 Platelets 333 150-379 Neutrophils 45 Lymphs 46 Monocytes 7 Eos 2 Basos 0 Neutrophils (Absolute) 3.4 1.4-7.0 Lymphs (Absolute) 3.5 0.7-3.1 Monocytes(Absolute) 0.5 0.1-0.9 Eos (Absolute) 0.2 0.0-0.4 Baso (Absolute) 0.0 0.0-0.2 Immature Granulocytes 0 Immature Grans (Abs) 0.0 0.0-0.1 CMP 2017-05-21 Glucose, Serum 114 65-99 BUN 8 6-20 Creatinine, Serum 0.68 0.57-1.00 eGFR If NonAfricn Am 114 >59 eGFR If Africn Am 132 >59 BUN/Creatinine Ratio 12 9-23 Sodium, Serum 141 134-144 Potassium, Serum 4.1 3.5-5.2 Chloride, Serum 101 96-106 Carbon Dioxide, Total 20 18-29 Calcium, Serum 9.4 8.7-10.2 Protein, Total, Serum 7.3 6.0-8.5 Albumin, Serum 4.6 3.5-5.5 Globulin, Total 2.7 1.5-4.5 A/G Ratio 1.7 1.2-2.2 Bilirubin, Total <0.2 0.0-1.2 Alkaline Phosphatase, S 72 39-117 AST (SGOT) 18 0-40 ALT (SGPT) 22 0-32 Ultrasound : Pelvic, COMPLETE (REFLEX [id number]) 2017-05-29 PROCEDURES Procedure Date Ordered Result Body Site COMPLETE CBC W/AUTO DIFF WBC May 21, 2017 COMPREHEN METABOLIC PANEL May 21, 2017 ASSAY THYROID STIM HORMONE May 21, 2017 VENIPUNCT, ROUTINE* May 21, 2017 INSTRUCTIONS MEDICATIONS ADMINISTERED No Known Medications MEDICAL (GENERAL) HISTORY Type Description Date Medical History GERD Medical History anxiety Medical History depression Surgical History C- section x 2 Surgical History tubal ligation Surgical History hysterectomy 2008 Surgical History cholecystectomy 2013 Surgical History Fibroid removal Hospitalization History inpatient treatment Mirtha SMITH 21 years old Hospitalization History surgeries
--- OUTSIDE RECORDS SUMMARY | 2019-01-13 22:04 | XMS REPORT ---
Author Author PADMINI LUJAN [facility] Address [address] [place] [address] Care Team Providers Care Pan Operator Name Role Phone PADMINI LUJAN Unavailable PROBLEMS Type Condition ICD9-CM Code TYF76-IB Code Onset Dates Condition Status SNOMED Code Problem BMI 35.0-35.9,adult Z68.35 Active 959125052 Problem Tobacco use Z72.0 Active 914902770 Problem Chronic fatigue R53.82 Active 40039321 Problem Prediabetes R73.03 Active 089073719 Problem Chronic reflux esophagitis K21.0 Active 149461894 Problem Carpal tunnel syndrome of right wrist G56.01 Active 76423864 Problem PTSD (post-traumatic stress disorder) F43.10 Active 80146939 Problem 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 91723744 Problem Elevated lymphocytes D72.820 Active 51778376 Problem WILMA (generalized anxiety disorder) F41.1 Active 51925403 Problem Severe episode of recurrent major depressive disorder, without psychotic features F33.2 Active 93160532 ALLERGIES No Information ENCOUNTERS Encounter Location Date Diagnosis [facility] [facility] [id number] [place] [address] 82737- 6295 May, [facility] [id number] [place] [address] 61676- 1223 Apr, [facility] [id number] [place] [address] 92126- 7171 Apr, [place] [address] [address]- [address] March, Severe episode of recurrent major depressive disorder, without psychotic features F33.2 ; WILMA (generalized anxiety disorder) F41.1 and PTSD (post-traumatic stress disorder) F43.10 [facility] [address] [address]- [address]131 March, Severe episode of recurrent major depressive disorder, without psychotic features F33.2 ; WILMA (generalized anxiety disorder) F41.1 and PTSD (post-traumatic stress disorder) F43.10 [facility] [address], [place] [address] March, [facility] [id number] [place] [address] 87347- 9386 Jan, Severe episode of recurrent major depressive disorder, without psychotic features F33.2 ; WILMA (generalized anxiety disorder) F41.1 and PTSD (post-traumatic stress disorder) F43.10 [place] [id number] [place] [address] 42137- 6442 Jan, Carpal tunnel syndrome of right wrist G56.01 [place] [id number] [place] [address] 55714- 6703 Jan, Severe episode of recurrent major depressive disorder, without psychotic features F33.2 ; WILMA (generalized anxiety disorder) F41.1 and PTSD (post-traumatic stress disorder) F43.10 [place] [id number] [place] [address] 60583- 0810 Dec, Severe episode of recurrent major depressive disorder, without psychotic features F33.2 ; WILMA (generalized anxiety disorder) F41.1 and PTSD (post-traumatic stress disorder) F43.10 [place] [id number] [place] [address] 58064- 5408 Dec, Severe episode of recurrent major depressive disorder, without psychotic features F33.2 ; WILMA (generalized anxiety disorder) F41.1 and PTSD (post-traumatic stress disorder) F43.10 [facility] [id number] [place] [address] 05838- 8394 Dec, Severe episode of recurrent major depressive disorder, without psychotic features F33.2 ; WILMA (generalized anxiety disorder) F41.1 and PTSD (post-traumatic stress disorder) F43.10 [place] [id number] [place] [address] 75958- 0307 Dec, Severe episode of recurrent major depressive disorder, without psychotic features F33.2 [place] [id number] [place] [address] 7658 Dec, Severe episode of recurrent major depressive disorder, without psychotic features F33.2 ; WILMA (generalized anxiety disorder) F41.1 and PTSD (post-traumatic stress disorder) F43.10 [place] [id number] [place], [place] [address]- [address]3 Dec, Severe episode of recurrent major depressive disorder, without psychotic features F33.2 ; WILMA (generalized anxiety disorder) F41.1 and PTSD (post-traumatic stress disorder) F43.10 [place] [id number] [place] [address]- [address]79 Dec, Severe episode of recurrent major depressive disorder, without psychotic features F33.2 and Anxiety state, unspecified F41.1 [facility] [id number] [place] [address] 17511- 4860 Dec, Severe episode of recurrent major depressive disorder, without psychotic features F33.2 and Anxiety state, unspecified F41.1 [place] [id number] [place] [address] 86172- 9705 Nov, Depression, major, recurrent, moderate F33.1 and Anxiety state, unspecified F41.1 [place] [id number] [place] [address] 91746- 5431 Nov, Depression, major, recurrent, moderate F33.1 and Anxiety state, unspecified F41.1 [place] [id number] [place] [address] 90911- 0501 Oct, Depression, major, recurrent, moderate F33.1 and Anxiety state, unspecified F41.1 [place] [id number] [place] [address] 16833- 7748 Oct, Depression, major, recurrent, moderate F33.1 and Post- cholecystectomy syndrome K91.5 [place] [id number] [place] [address]- 1753 07 Oct, 2017 Depression, major, recurrent, moderate F33.1 and Anxiety state, unspecified F41.1 [place] [id number] [place]- 2956 Sep, Depression, major, recurrent, moderate F33.1 and Anxiety state, unspecified F41.1 [place] [id number] [place] [address]- 03[address] Sep, Depression, major, recurrent, moderate F33.1 and Anxiety state, unspecified F41.1 [place] [address]- 7847 Sep, Depression, major, recurrent, moderate F33.1 and Anxiety state, unspecified F41.1 [place] [address]- 9650 Sep, Diarrhea, unspecified type R19.7 [place] [id number] [place] [address] 97792- 4860 Aug, Depression, major, recurrent, moderate F33.1 and Anxiety state, unspecified F41.1 [place] [id number] [place] [address]- 2116 Aug, Depression, major, recurrent, moderate F33.1 and Anxiety state, unspecified F41.1 [place] [id number] [place]- 4523 Jul, Depression, major, recurrent, moderate F33.1 and Anxiety state, unspecified F41.1 [place] [id number] [place] 9882 Jun, Depression, major, recurrent, moderate F33.1 and Anxiety state, unspecified F41.1 [place] [id number] [place] [address] 12139- 5412 Jun, Generalized abdominal pain R10.84 ; Diarrhea, unspecified type R19.7 ; Acute cystitis without hematuria N30.00 ; Abdominal bloating R14.0 and Elevated blood pressure reading R03.0 [place] [id number] [place] [address] 25454- 0614 Jun, Depression, major, recurrent, moderate F33.1 and Anxiety state, unspecified F41.[address] 36587- 9656 May, Depression, major, recurrent, moderate F33.1 and Anxiety state, unspecified F41.[address] 98825- 3281 May, Elevated lymphocytes D72.820 [place] [id number] [place] [address] 47257- 9548 May, Elevated lymphocytes D72.820 [place] [id number] [place] [address] 97422- 2002 May, BMI 35.0-35.9,adult Z68.35 ; Other fatigue R53.83 ; Pelvic pain R10.2 ; Tobacco use Z72.0 and Chronic reflux esophagitis K21.0 [place] [id number] [place] [address] 58669- 7148 Apr, [place] [id number] [place] [address] 46097- 6849 Apr, Depression, major, recurrent, moderate F33.1 and Anxiety state, unspecified F41.1 [place] [id number] [place] [address] 21920- 7293 Apr, Depression, major, recurrent, moderate F33.1 and Anxiety state, unspecified F41.1 [place] [id number] [place] [address] 02558- 1444 Apr, [address] 26188- 8999 March, Major depressive disorder, recurrent episode, mild F33.0 and Anxiety state, unspecified F41.1 [facility] [id number] [place] [address] 27783 -9735 March, Sore throat J02.9 and Submandibular lymphadenopathy R59.0 [facility] [id number] [place] [address] 24183- 7291 Dec, Major depressive disorder, recurrent episode, mild F33.0 and Anxiety state, unspecified F41.1 [place] [id number] [place] [address] 04956- 5371 Dec, Major depressive disorder, recurrent episode, mild F33.0 and Anxiety state, unspecified F41.1 [place] [id number] [place] [address] 51026- 1426 Dec, Major depressive disorder, recurrent episode, mild F33.0 and Anxiety state, unspecified F41.1 [place] [id number] [place] [address] 69373- 9571 Sep, Major depressive disorder, recurrent episode, mild F33.0 and Anxiety state, unspecified F41.1 [place] [id number] [place] [address] 82191- 4809 Sep, Major depressive disorder, recurrent episode, moderate F33.1 and Anxiety state, unspecified F41.1 [place] [id number] [place] [address] 73820- 7473 Aug, Major depressive disorder, recurrent episode, moderate F33.1 and Anxiety state, unspecified F41.1 [place] [id number] [place] [address] 56368- 8710 Aug, Major depressive disorder, recurrent episode, moderate F33.1 and Anxiety state, unspecified F41.1 [place] [address] [place] [address] 49863- 9611 Jul, Major depressive disorder, recurrent episode, moderate F33.1 and Anxiety state, unspecified F41.1 [place] [address], [place] [address]- 7832 Jul, Major depressive disorder, recurrent episode, moderate F33.1 and Anxiety state, unspecified F41.1 [place] [address], [place] [address]- 8058 Jun, Major depressive disorder, recurrent episode, moderate F33.1 and Anxiety state, unspecified F41.1 [place] [address], [place] [address]- 7708 Jun, Major depressive disorder, recurrent episode, moderate F33.1 and Anxiety state, unspecified F41.1 [place] [id number] [place] [address] 22842- 0337 May, Major depressive disorder, recurrent episode, moderate F33.1 and Anxiety state, unspecified F41.1 [place] [id number] [place] [address] 76726- 1845 Apr, Major depressive disorder, recurrent episode, moderate F33.1 and Anxiety state, unspecified F41.1 [place] [address] [place] [address] 49862- 4745 Apr, Major depressive disorder, recurrent episode, moderate F33.1 and Anxiety state, unspecified F41.1 [place] [address], [place] [address]- 0256 Dec, Major depressive disorder, recurrent episode, moderate F33.1 and Anxiety state, unspecified F41.1 [place] [address], [place] [address]- 1149 Dec, Major depressive disorder, recurrent episode, moderate F33.1 and Anxiety state, unspecified F41.1 [facility] [address], [place] [address] -9796 Dec, Pharyngitis J02.9 and Acute frontal sinusitis J01.10 [place] [id number] [place] [address] 79054- 1762 Nov, Bilateral occipital neuralgia M54.81 and Neck muscle spasm M62.838 [facility] [id number] [place] [address] 55869- 3513 Nov, Major depressive disorder, recurrent episode, moderate F33.1 and Anxiety state, unspecified F41.1 [facility] [id number] [place] [address] 88043- 2090 Sep, Major depressive disorder, recurrent episode, moderate F33.1 and Anxiety state, unspecified F41.1 [facility] [id number] [place] [address] 55902- 9500 Aug, Major depressive disorder, recurrent episode, moderate F33.1 and Anxiety state, unspecified F41.1 [facility] [id number] [place] [address] 84849- 8364 Jul, Abdominal pain 789.00 ; Hematochezia 578.1 and Weight loss 783.21 [facility] [id number] [place] [address] 92620- 3134 May, [facility] [id number] [place] [address] 17653- 6772 March, [facility] [id number] [place] [address] 41741- 4402 March, [facility] [id number] [place] [address] 80309- 0239 Jan, [facility] [id number] [place] [address] 31121- 4228 Jan, [facility] [id number] [place] [address] 52730- 9990 Dec, [facility] [id number] [place] [address] 08567- 6711 Dec, [facility] [id number] [place] [address] 23727- 2939 Dec, 2014 [facility] [place] [facility] [address] [id number] [place] [address]- 9926 Dec, 2014 [facility] [place] [facility] [address] [id number] [place] [address]- 1056 Dec, 2014 [facility] [place] [facility] [address] [id number] [place] [address]- 0157 Dec, 2014 [facility] [place] [facility] [address] [id number] [place] [address]- 9940 Jul, 2013 [facility] [place] [facility] [address] [id number] [place] [address]- 1559 25 Jul, 2013 [facility] [place] [facility] [address] [id number] [place] [address]- 8848 11 Jul, 2013 [facility] [place] [facility] [address] [id number] [place] [address]- 5703 11 Jul, 2013 [facility] [place] [facility] [address] [id number] [place] [address]- 2549 10 Sep, 2013 [facility] [place] [facility] [address] [id number] [place] [address]- 8751 10 Jul, 2013 [facility] [place] [facility] [address] [id number] [place] [address]- 2201 09 Sep, 2013 [facility] [place] [facility] [address] [id number] [place] [address] 2544 09 Sep, 2013 [facility] [place] [facility] [address] [id number], [place] [address]- 2547 09 Sep, 2013 [facility] [place] [facility] [address] [id number] [place] [address]- 2545 09 Sep, 2013 [facility] [place] [facility] [address] [id number] [place] [address]- 9492 04 Sep, 2013 [facility] [place] [facility] [address] [id number] [place] [address]- 1465 04 Sep, 2013 [facility] [place] [facility] [address] [id number] [place] [address]- 6034 May, [facility] [place] [facility] [address] [id number] [place] [address]- 5888 May, [facility] [place] [facility] [address] [id number] [place] [address]- 3278 Apr, [facility] [place] [facility] [address] [id number] [place] [address]- 0471 Apr, [facility] [place] [facility] [address] [id number] [place] [address]- 7110 Apr, [facility] [place] [facility] [address] [id number] [place] [address]- 7400 Apr, [facility] [place] [facility] [address] [id number] [place] [address]- 0644 March, [facility] [place] [facility] [address] [id number] [place] [address]- 1384 March, [facility] [place] [facility] [address] [id number] [place] 2223 Jan, [facility] [place] [facility] [address] [id number] [place] [address]- 5589 Jan, [facility] [place] [facility] [address] [id number] [place] [address]- 8022 Jan, [facility] [place] [facility] [address] [id number] [place] [address]- 6985 Jan, [facility] [place] [facility] [address] [id number] [place] [address]- 9426 Dec, [facility] [place] [facility] [address] [id number] [place] [address]- 9187 Dec, [facility] [place] [facility] [address] [id number] [place] [address]- 1698 Dec, [facility] [place] [facility] [address] [id number] [place] [address]- 9034 18 Dec, 2013 [facility] [place] [facility] [address] [id number] [place] [address]- 6203 15 Dec, 2013 [facility] [place] [facility] [address] [id number] [place] [address]- 8216 14 Dec, 2013 [facility] [place] [facility] [address] [id number] [place] [address]- 6480 13 Dec, 2013 [facility] [place] [facility] [address] [id number] [place] [address]- 9137 13 Dec, 2013 [facility] [place] [facility] [address] [id number] [place] [address]- 6068 12 Dec, 2013 [facility] [place] [facility] [address] [id number] [place] [address]- 8273 12 Dec, 2013 [facility] [place] [facility] [address] [id number] [place] [address]- 9210 05 Dec, 2013 [facility] [place] [facility] [address] [id number] [place] [address]- 5711 05 Dec, 2013 [facility] [place] [facility] [address] [id number] [place] [address]- 5920 Dec, [facility] [place] [facility] [address] [id number] [place] [address]- 8672 Dec, [facility] [place] [facility] [address] [id number] [place] [address]- 3363 Dec, [facility] [place] [facility] [address] [id number] [place] [address]- 3710 Dec, [facility] [place] [facility] [address] [id number] [place] [address]- 9544 Dec, [facility] [place] [facility] [address] [id number] [place] [address]- 5054 Dec, [facility] [place] [facility] [address] [id number] [place] [address]- 6605 Nov, [facility] [place] [facility] [address] [id number] [place] [address]- 4200 Nov, [facility] [address] [id number] [place] [address]- 2504 Nov, [facility] [address] [id number] [place] [address]- 3276 Nov, [facility] [address] [id number] [place] [address]- 6056 Nov, [facility] [address] [id number] [place] [address]- 5762 Nov, [facility] [address] [id number] [place] [address]- 8117 Nov, [facility] [address] [id number] [place] [address]- 5706 Nov, [facility] [address] [id number] [place] [address]- 0292 Oct, [facility] [address] [id number] [place] [address]- 5262 Oct, [facility] [address] [id number] [place] [address]- 6086 Oct, [facility] [address] [id number] [place] [address]- 1370 Oct, [facility] [address] [id number] [place] [address]- 2546 Oct, [facility] [address] [id number] [place] [address]- 2546 Oct, [facility] [place] [facility] [address] [id number] [place] [address]- 9496 Sep, [facility] [place] [facility] [address] [id number] [place] [address]- 2546 Sep, [facility] [address] [id number] [place] [address]- 6096 Sep, [facility] [place] [facility] [address] [id number] [place] [address]- 5832 Sep, [facility] [place] [facility] [address] [id number] [place] [address]- 5862 Aug, [facility] [place] [facility] [address] [id number] [place] [address]- 9346 Aug, [facility] [place] [facility] [address] [id number] [place] [address]- 2944 Aug, [facility] [place] [facility] [address] [id number] [place] 0086 Aug, [facility] [place] [facility] [address] [id number] [place] 9336 Jul, [facility] [place] [facility] [address] [id number] [place] [address]- 4006 Jul, [facility] [place] [facility] [address] [id number] [place] [address]- 2037 Jun, [facility] [place] [facility] [address] [id number] [place] 8808 Jun, [facility] [place] [facility] [address] [id number], [place] [address]- 6784 Apr, [facility] [place] [facility] [address] [id number], [place] [address]- 8226 Apr, [facility] [place] [facility] [address] [id number], [place] [address]- 7502 15 Apr, 2013 [facility] [place] [facility] [address] [id number] [place] [address]- 9200 Apr, [facility] [place] [facility] [address] [id number], [place] [address]- 6216 30 Mar, 2013 [facility] [place] [facility] [address] [id number], [place] [address]- 7184 March, [facility] [place] [facility] [address] [id number], [place] [address]- 3272 March, [facility] [address] [id number] [place] [address]- 4063 Jan, [facility] [address] [id number] [place] [address]- 9326 Jan, [facility] [address] [id number] [place] [address]- 0976 Dec, [facility] [address] [id number] [place] [address]- 2195 Dec, [facility] [address] [id number] [place] [address]- 0149 Dec, [facility] [address] [id number] [place] [address]- 5726 Dec, [facility] [address] [id number] [place] [address]- 2557 Dec, [facility] [address] [id number] [place] [address]- 6919 Dec, [facility] [address] [id number] [place] [address]- 6845 Nov, [facility] [address] [facility] [id number] [place] [address]- 2456 Nov, [facility] [address] [id number] [place] [address] Oct, [facility] [address] [id number] [place] [address] Oct, [facility] [place] [facility] [address] [id number] [place] [address] Oct, [facility] [address] [id number] [place] [address] Oct, [facility] [address] [id number] [place] [address] Oct, [facility] [place] [facility] [address] [id number] [place] [address] Oct, [facility] [place] [facility] [address] [id number] [place] [address] Oct, [facility] [place] [facility] [address] [id number] [place] [address] Oct, [facility] [place] [facility] [address] [id number] [place] [address] Oct, [facility] [place] [facility] [address] [id number] [place] [address] Oct, [facility] [place] [facility] [address] [id number] [place] [address] Sep, [facility] [place] [facility] [address] [id number] [place] [address] Sep, [facility] [place] [facility] [address] [id number] [place] [address] Sep, [facility] [place] [facility] [address] [id number] [place] [address] Sep, [facility] [place] [facility] [address] [id number] [place] [address] Aug, [facility] [place] [facility] [address] [id number] [place] [address] Aug, [facility] [place] [facility] [address] [id number] [place] [address] Aug, [facility] [place] [facility] [address] [id number] [place] [address] Jul, [facility] [place] [facility] [address] [id number] [place] [address] Jun, [facility] [place] [facility] [address] [id number] [place] [address] Jun, [facility] [place] [facility] [address] [id number] [place] [address] May, [facility] [address] [id number] [place] [address] Apr, [facility] [place] [facility] [address] [id number] [place] [address] March, [facility] [place] [facility] [address] [id number] [place] [address] Jan, [facility] [place] [facility] [address] [id number] [place] [address] Dec, [facility] [place] [facility] [address] [id number] [place] [address] Dec, [facility] [place] [facility] [address] [id number] [place] [address] Nov, [facility] [address] [id number] [place] [address] Oct, [facility] [place] [facility] [address] [id number] [place] [address] Oct, [facility] [place] [facility] [address] [id number] [place] [address] [address] Sep, [facility] [place] [facility] [address] [id number] [place] [address] Aug, [facility] [place] [facility] [address] [id number] [place] [address] Dec, [facility] [place] [facility] [address] [id number] [place] [address] Oct, [facility] [place] [facility] [address] [id number] [place] [address] Oct, [facility] [place] [facility] [address] [id number] [place] [address] Oct, [facility] [place] [facility] [address] [id number] [place] [address] Jun, [facility] [place] [facility] [address] [id number] [place] [address] Jun, [facility] [address] [id number], [place] [address] Oct, [facility] [id number], [place] [address] Sep, [facility] [address] [id number], [place] [address] Sep, [facility] [id number], [place] [address] Sep, [facility] [address] [id number], [place] [address] Aug, [facility] [id number], [place] [address] Dec, IMMUNIZATIONS No Known Immunizations SOCIAL HISTORY Never Assessed REASON FOR VISIT Follow-up Depression/Anxiety PLAN OF CARE Activity Details Follow Up 2 Weeks Reason: Follow-up VITAL SIGNS MEDICATIONS Unknown Medications RESULTS No Results PROCEDURES Procedure Date Ordered Result Body Site Psychotherapy, patient &/family, 45 minutes, established patient Nov 03, 2017 INSTRUCTIONS MEDICATIONS ADMINISTERED No Known Medications MEDICAL (GENERAL) HISTORY Type Description Date Medical History GERD Medical History anxiety Medical History depression Surgical History C- section x 2 Surgical History tubal ligation Surgical History hysterectomy 2008 Surgical History cholecystectomy 2013 Surgical History Fibroid removal Hospitalization History inpatient treatment Mirtha SMITH 21 years old Hospitalization History surgeries
--- OUTSIDE RECORDS SUMMARY | 2019-01-13 22:04 | XMS REPORT ---
Author Author HUBERT RASCON [facility] [employer] Address Unknown Phone Unavailable Care Team Providers Care Income Tax Administrator Name Role Phone HUBERT RASCON CP Unavailable Allergies, Adverse Reactions, Alerts Substance Reaction Event Type Citalopram 20 Mg Tablet Fatigue, "foggy", decreased sex drive Non Drug Allergy Problems Problem Type Condition Code Onset Dates Condition Status Problem Anxiety state, unspecified F41.1 Active Problem Chronic reflux esophagitis K21.0 Active Problem Major depressive disorder, recurrent episode, moderate F33.1 Active Assessment Pharyngitis J02.9 Active Assessment Acute frontal sinusitis J01.10 Active Medications Medication Code System Code Instructions Start Date End Date Status Dosage Zyrtec Allergy [facility] [address]-26 10 MG Orally Once a day Dec 07, 2015 Dec 21, 2015 as directed Pantoprazole Sodium [facility] [address]-67 40 MG Orally Once a day 1 tablet Fluticasone Propionate [facility] [address]-32 50 MCG/ACT Nasally Once a day Dec 07, 2015 1 spray in each nostril Procedures Procedure Coding System Code Date Office Visit, Est Pt., Level 3 CPT-4 24414 Dec 07, 2015 STREP A ASSAY W/OPTIC CPT-4 93917 Dec 07, 2015 Vital Signs Date/Time: Dec 07, 2015 Temperature 97.4 F Weight 177 lbs Height 60 in BMI 34.56 Index Blood Pressure Diastolic 70 mmHg Blood Pressure Systolic 110 mmHg Cardiac Monitoring Heart Rate 86 bpm Results Name Result Date Reference Range Unit Abnormality Flag STREP A (IN HOUSE) ----STREP A negative [id number] ----Control + [id number] ----Lot # [id number] ----Exp date [id number] Summary Purpose eClinicalWorks Submission
--- OUTSIDE RECORDS SUMMARY | 2019-01-13 22:04 | XMS REPORT ---
Author Author PADMINI LUJAN [facility] Address [address] [place] [address] Care Team Providers Care Squad Boss Name Role Phone PADMINI LUJAN Unavailable PROBLEMS Type Condition ICD9-CM Code [id number] Code Onset Dates Condition Status SNOMED Code Problem BMI 35.0-35.9,adult Z68.35 Active 443342596 Problem Tobacco use Z72.0 Active 436715248 Problem Chronic fatigue R53.82 Active 52716287 Problem Prediabetes R73.03 Active 111310515 Problem Chronic reflux esophagitis K21.0 Active 132719745 Problem Carpal tunnel syndrome of right wrist G56.01 Active 41615653 Problem PTSD (post-traumatic stress disorder) F43.10 Active 80445550 Problem 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 74703936 Problem Elevated lymphocytes D72.820 Active 07900778 Problem WILMA (generalized anxiety disorder) F41.1 Active 45958346 Problem Severe episode of recurrent major depressive disorder, without psychotic features F33.2 Active 27597678 ALLERGIES No Information ENCOUNTERS Encounter Location Date Diagnosis [facility] [id number] [place] [address] 13691- 3468 Apr, [facility] [id number] [place] [address] 39194- 6120 Apr, [facility] [id number] [place] [address] 78764- 4138 March, [facility] [address] 6[address]77- 2333 March, Severe episode of recurrent major depressive disorder, without psychotic features F33.2 ; WILMA (generalized anxiety disorder) F41.1 and PTSD (post-traumatic stress disorder) F43.10 [facility] [address] 22161- 1653 March, [facility] [address] [address] 8144 Jan, Severe episode of recurrent major depressive disorder, without psychotic features F33.2 ; WILMA (generalized anxiety disorder) F41.1 and PTSD (post-traumatic stress disorder) F43.10 [facility] [id number] [place] [address] 46231- 1000 Jan, Carpal tunnel syndrome of right wrist G56.01 [facility] [id number] [place] [address] 88129- 1694 Jan, Severe episode of recurrent major depressive disorder, without psychotic features F33.2 ; WILMA (generalized anxiety disorder) F41.1 and PTSD (post-traumatic stress disorder) F43.10 [facility] [id number] [place] [address] 48014- 8510 Dec, Severe episode of recurrent major depressive disorder, without psychotic features F33.2 ; WILMA (generalized anxiety disorder) F41.1 and PTSD (post-traumatic stress disorder) F43.10 [facility] [id number] [place] [address] 39944- 2133 Dec, Severe episode of recurrent major depressive disorder, without 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 ; WILMA (generalized anxiety disorder) F41.1 and PTSD (post-traumatic stress disorder) F43.10 [facility] [id number] [place] [address] 74559- 0350 Dec, Severe episode of recurrent major depressive disorder, without 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 ; WILMA (generalized anxiety disorder) F41.1 and PTSD (post-traumatic stress disorder) F43.10 [facility] [id number] [place] [address] 00163- 0954 Dec, Severe episode of recurrent major depressive disorder, without 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 [facility] [id number] [place] [address] 13183- 2416 Dec, Severe episode of recurrent major depressive disorder, without psychotic features F33.2 ; WILMA (generalized anxiety disorder) F41.1 and PTSD (post-traumatic stress disorder) F43.10 [facility] [id number] [place], [place] [address] 4383 Dec, Severe episode of recurrent major depressive disorder, without psychotic features F33.2 ; WILMA (generalized anxiety disorder) F41.1 and PTSD (post-traumatic stress disorder) F43.10 [facility] [address] 65167- 8024 Dec, Severe episode of recurrent major depressive disorder, without psychotic features F33.2 and Anxiety state, unspecified F41.[address] 40481- 4367 Dec, Severe episode of recurrent major depressive disorder, without psychotic features F33.2 and Anxiety state, unspecified F41.[address] 10443- 5176 Nov, Depression, major, recurrent, moderate F33.1 and Anxiety state, unspecified F41.[address] 54696- 5929 Nov, Depression, major, recurrent, moderate F33.1 and Anxiety state, unspecified F41.1 [facility] [id number] [place] [address] 30183- 3105 Oct, Depression, major, recurrent, moderate F33.1 and Anxiety state, unspecified F41.1 [facility] [id number] [place] [address] 32733- 5552 Oct, Depression, major, recurrent, moderate F33.1 and Post- cholecystectomy syndrome K91.5 [facility] [id number] [place] [address] Oct, Depression, major, recurrent, moderate F33.1 and Anxiety state, unspecified F41.1 [place] [address]- 2546 Sep, Depression, major, recurrent, moderate F33.1 and Anxiety state, unspecified F41.1 [facility] [id number] [place] [address] Sep, Depression, major, recurrent, moderate F33.1 and Anxiety state, unspecified F41.1 [facility] [id number] [place] [address]- 8493 Sep, Depression, major, recurrent, moderate F33.1 and Anxiety state, unspecified F41.1 [facility] [id number] [place] [address] 173 Sep, Diarrhea, unspecified type R19.7 [facility] [id number] [place] [address] 686 Aug, Depression, major, recurrent, moderate F33.1 and Anxiety state, unspecified F41.1 [facility] [id number] [place] 1506 Aug, Depression, major, recurrent, moderate F33.1 and Anxiety state, unspecified F41.1 [facility] [id number] [place] [address] 915 Jul, Depression, major, recurrent, moderate F33.1 and Anxiety state, unspecified F41.1 [facility] [id number] [place] [address] [address]44 Jun, Depression, major, recurrent, moderate F33.1 and Anxiety state, unspecified F41.1 [facility] [id number] [place] [address] Jun, Generalized abdominal pain R10.84 ; Diarrhea, unspecified type R19.7 ; Acute cystitis without hematuria N30.00 ; Abdominal bloating R14.0 and Elevated blood pressure reading R03.0 [facility] [id number] [place] [address] 1959 Jun, Depression, major, recurrent, moderate F33.1 and Anxiety state, unspecified F41.1 [facility] [id number] [place] [address] 62195- 8743 May, Depression, major, recurrent, moderate F33.1 and Anxiety state, unspecified F41.1 [facility] [id number] [place] [address] 20530- 6989 May, Elevated lymphocytes D72.820 [facility] [address] 83621- 0692 May, Elevated lymphocytes D72.820 [facility] [address] 29610- 7660 May, BMI 35.0-35.9,adult Z68.35 ; Other fatigue R53.83 ; Pelvic pain R10.2 ; Tobacco use Z72.0 and Chronic reflux esophagitis K21.0 [facility] [id number] [place] [address] 58901- 0477 Apr, [facility] [id number] [place] [address] 45597- 9996 Apr, Depression, major, recurrent, moderate F33.1 and Anxiety state, unspecified F41.1 [facility] [id number] [place] [address] 07134- 0538 Apr, Depression, major, recurrent, moderate F33.1 and Anxiety state, unspecified F41.1 [facility] [id number] [place] [address] 59077- 2322 Apr, [facility] [id number] [place] [address] 09949- 5563 March, Major depressive disorder, recurrent episode, mild F33.0 and Anxiety state, unspecified F41.1 [facility] [address] [place] [address] 49691 -6610 March, Sore throat J02.9 and Submandibular lymphadenopathy R59.0 [facility] [address] [address]- 9537 Dec, Major depressive disorder, recurrent episode, mild F33.0 and Anxiety state, unspecified F41.1 [facility] [address] [place] [address] 22678- 4413 Dec, Major depressive disorder, recurrent episode, mild F33.0 and Anxiety state, unspecified F41.1 [facility] [id number] [place] [address] 87990- 0075 Dec, Major depressive disorder, recurrent episode, mild F33.0 and Anxiety state, unspecified F41.1 [facility] [id number] [place] [address] 17532- 4014 Sep, Major depressive disorder, recurrent episode, mild F33.0 and Anxiety state, unspecified F41.1 [facility] [id number] [place] [address] 85371- 8212 Sep, Major depressive disorder, recurrent episode, moderate F33.1 and Anxiety state, unspecified F41.1 [facility] [id number] [place] [address] 11506- 6510 Aug, Major depressive disorder, recurrent episode, moderate F33.1 and Anxiety state, unspecified F41.1 [facility] [address] [place] [address] 65750- 6814 Aug, Major depressive disorder, recurrent episode, moderate F33.1 and Anxiety state, unspecified F41.1 [facility] [address] [place] [address] 93539- 0388 Jul, Major depressive disorder, recurrent episode, moderate F33.1 and Anxiety state, unspecified F41.1 [facility] [address] [address]- 8810 Jul, Major depressive disorder, recurrent episode, moderate F33.1 and Anxiety state, unspecified F41.1 [facility] [id number] [place] [address] 80981- 0012 Jun, Major depressive disorder, recurrent episode, moderate F33.1 and Anxiety state, unspecified F41.1 [facility] [id number] [place] [address] 23877- 6132 Jun, Major depressive disorder, recurrent episode, moderate F33.1 and Anxiety state, unspecified F41.1 [facility] [id number] [place] [address] 49125- 9232 May, Major depressive disorder, recurrent episode, moderate F33.1 and Anxiety state, unspecified F41.1 [facility] [id number] [place] [address] 82630- 8277 Apr, Major depressive disorder, recurrent episode, moderate F33.1 and Anxiety state, unspecified F41.1 [facility] [id number] [place] [address] 87140- 9971 Apr, Major depressive disorder, recurrent episode, moderate F33.1 and Anxiety state, unspecified F41.1 [facility] [id number] [place] [address] 17417- 3188 Dec, Major depressive disorder, recurrent episode, moderate F33.1 and Anxiety state, unspecified F41.1 [facility] [id number] [place] [address] 13637- 8136 Dec, Major depressive disorder, recurrent episode, moderate F33.1 and Anxiety state, unspecified F41.1 [facility] [id number] [place] [address] 03577 -1716 Dec, Pharyngitis J02.9 and Acute frontal sinusitis J01.10 [facility] [id number] [place] [address] 60395- 2963 Nov, Bilateral occipital neuralgia M54.81 and Neck muscle spasm M62.838 [facility] [id number] [place] [address] 36747- 8108 Nov, Major depressive disorder, recurrent episode, moderate F33.1 and Anxiety state, unspecified F41.1 [facility] [address]- 3082 Sep, Major depressive disorder, recurrent episode, moderate F33.1 and Anxiety state, unspecified F41.1 [facility] [address] [address]- 3196 Aug, Major depressive disorder, recurrent episode, moderate F33.1 and Anxiety state, unspecified F41.1 [facility] [id number] [place] [address] 239436- 1776 Jul, Abdominal pain 789.00 ; Hematochezia 578.1 and Weight loss 783.21 [facility] [id number] [address]- 9811 May, [facility] [id number] [place] [address] 79472- 9315 March, [facility] [id number] [place] [address] 11528- 5455 March, [facility] [id number] [place] [address] 20399- 8406 Jan, [facility] [address] [address]- 7542 Jan, [facility] [id number] [place] [address] 72073- 6024 Dec, [facility] [address] [address]- 9386 Dec, [facility] [id number] [address]- 3280 Dec, [facility] [address]- 5486 Dec, [facility] [id number] [place] [address] 92786- 8033 Dec, 2014 [facility] [place] [facility] [address] [id number] [place] [address]- 9294 Dec, 2014 [facility] [place] [facility] [address] [id number] [place] [address]- 9216 Jul, 2013 [facility] [place] [facility] [address] [id number] [place] [address]- 2236 Jul, 2013 [facility] [place] [facility] [address] [id number] [place] [address]- 1524 Jul, 2013 [facility] [place] [facility] [address] [id number] [place] [address]- 4256 11 Jul, 2013 [facility] [place] [facility] [address] [id number] [place] [address]- 3173 Jul, 2013 [facility] [place] [facility] [address] [id number] [place] [address]- 4584 Jul, 2013 [facility] [place] [facility] [address] [id number] [place] [address]- 9855 Jul, 2013 [facility] [place] [facility] [address] [id number] [place] [address]- 1655 Jul, 2013 [facility] [place] [facility] [address] [id number] [place] [address]- 3900 Jul, 2013 [facility] [place] [facility] [address] [id number] [address]- 5526 Jul, 2013 [facility] [place] [facility] [address] [id number] [address] 2543 Jul, 2013 [facility] [place] [facility] [address] [id number] [place] [address] 2549 Jul, 2013 [facility] [place] [facility] [address] [id number] [place] [address]- 5722 May, 2013 [facility] [place] [facility] [address] [id number] [place] [address]- 5070 May, 2013 [facility] [place] [facility] [address] [id number] [place] [address]- 2467 Apr, [facility] [place] [facility] [address] [id number] [place] [address]- 9459 Apr, [facility] [place] [facility] [address] [id number] [place] [address]- 6736 Apr, [facility] [place] [facility] [address] [id number] [place] 3533 Apr, [facility] [place] [facility] [address] [id number] [place] [address]- 5106 March, [facility] [place] [facility] [address] [id number] [place] [address]- 2703 March, [facility] [place] [facility] [address] [id number] [place] [address]- 1085 Jan, [facility] [place] [facility] [address] [id number] [place] [address]- 0070 Jan, [facility] [place] [facility] [address] [id number] [place] [address]- 5596 Jan, [facility] [place] [facility] [address] [id number] [place] [address]- 6750 Jan, [facility] [place] [facility] [address] [id number] [place] [address]- 5888 Dec, [facility] [place] [facility] [address] [id number] [place] [address]- 5509 25 Dec, 2013 [facility] [place] [facility] [address] [id number] [place] [address]- 0291 18 Dec, 2013 [facility] [place] [facility] [address] [id number] [place] [address]- 2547 18 Dec, 2013 [facility] [place] [facility] [address] [id number] [place] [address]- 7931 15 Dec, 2013 [facility] [place] [facility] [address] [id number] [place] [address]- 9870 14 Dec, 2013 [facility] [place] [facility] [address] [id number] [place] [address]- 1329 13 Dec, 2013 [facility] [place] [facility] [address] [id number] [place] [address]- 7964 13 Dec, 2013 [facility] [place] [facility] [address] [id number] [place] [address]- 7526 Dec, [facility] [place] [facility] [address] [id number] [place] [address]- 4608 Dec, [facility] [place] [facility] [address] [id number] [place] [address]- 7877 05 Dec, 2013 [facility] [place] [facility] [address] [id number] [place] [address]- 0435 Dec, [facility] [place] [facility] [address] [id number] [place] [address]- 3593 Dec, [facility] [place] [facility] [address] [id number] [place] [address]- 6211 Dec, [facility] [place] [facility] [address] [id number] [place] [address]- 9500 Dec, [facility] [place] [facility] [address] [id number] [place] [address]- 2864 Dec, [facility] [place] [facility] [address] [id number] [place] [address]- 2897 Dec, [facility] [place] [facility] [address] [id number] [place] [address]- 6711 Dec, [facility] [place] [facility] [address] [id number] [place] [address]- 3488 Nov, [facility] [place] [facility] [address] [id number] [place] [address]- 7157 Nov, [facility] [place] [facility] [address] [id number] [place] [address]- 6499 Nov, [facility] [place] [facility] [address] [id number] [place] [address]- 8822 Nov, [facility] [address] [id number] [place] [address]- 1415 Nov, [facility] [place] [facility] [address] [id number] [place] [address]- 7418 Nov, [facility] [address] [id number] [place] [address]- 2454 Nov, [facility] [place] [facility] [address] [id number] [place] [address]- 9580 Nov, [facility] [address] [id number] [place] [address]- 4754 Oct, [facility] [place] [facility] [address] [id number] [place] [address]- 3073 Oct, [facility] [address] [id number] [place] [address]- 1590 Oct, [facility] [place] [facility] [address] [id number] [place] [address]- 3694 Oct, [facility] [address] [id number] [place] [address]- 5879 Oct, [facility] [place] [facility] [address] [facility] [id number] [place] [address]- 0999 Oct, [facility] [place] [facility] [address] [id number] [place] [address]- 9554 Sep, [facility] [place] [facility] [address] [id number] [place] [address]- 4121 Sep, [facility] [place] [facility] [address] [id number] [place] [address]- 0998 Sep, [facility] [place] [facility] [address] [id number] [place] [address]- 0802 Sep, [facility] [place] [facility] [address] [id number] [place] [address]- 7238 Aug, [facility] [place] [facility] [address] [id number] [place] [address]- 0692 Aug, [facility] [place] [facility] [address] [id number] [place] [address]- 4811 Aug, [facility] [place] [facility] [address] [id number] [place] [address]- 1913 Aug, [facility] [place] [facility] [address] [id number] [place] [address]- 0685 Jul, [facility] [place] [facility] [address] [id number] [place] [address]- 5512 Jul, [facility] [place] [facility] [address] [id number] [place] [address]- 6519 Jun, [facility] [place] [facility] [address] [id number] [place] [address]- 0986 Jun, [facility] [place] [facility] [address] [id number] [place] [address]- 4649 Apr, [facility] [place] [facility] [address] [id number] [place] [address]- 2770 Apr, [facility] [place] [facility] [address] [id number] [place] [address]- 1339 Apr, [facility] [place] [facility] [address] [id number] [place] [address]- 2691 Apr, [facility] [place] [facility] [address] [id number] [place] [address]- 9637 March, [facility] [place] [facility] [address] [id number] [place] [address]- 1480 March, [facility] [place] [facility] [address] [id number] [place] [address]- 3760 March, [facility] [place] [facility] [address] [id number] [place] [address]- 8372 Jan, [facility] [place] [facility] [address] [id number] [place] [address]- 4876 Jan, [facility] [address] [id number] [place] [address]- 3391 Dec, [facility] [place] [facility] [address] [id number] [place] [address]- 3976 Dec, [facility] [place] [facility] [address] [id number] [place] [address]- 2366 Dec, [facility] [place] [facility] [address] [id number] [place] [address]- 0734 Dec, [facility] [place] [facility] [address] [id number] [place] [address]- 1685 Dec, [facility] [address] [id number] [place] [address]- 6588 Dec, [facility] [address] [id number] [place] [address]- 4854 Nov, [facility] [place] [facility] [address] [id number] [place] [address]- 2559 Nov, [facility] [address] [id number] [place] [address]- 1356 Oct, [facility] [place] [facility] [address] [id number] [place] [address]- 6664 Oct, [facility] [address] [id number] [place] [address]- 3028 Oct, [facility] [place] [facility] [address] [id number] [place] [address]- 7172 Oct, [facility] [place] [facility] [address] [id number] [place] [address]- 2149 Oct, [facility] [place] [facility] [address] [id number] [place] [address] Oct, [facility] [place] [facility] [address] [id number] [place] [address] Oct, [facility] [place] [facility] [address] [id number] [place] [address] Oct, [facility] [place] [facility] [address] [id number] [place] [address] Oct, [facility] [place] [facility] [address] [id number] [place] [address] Oct, [facility] [address] [id number] [place] [address] Sep, [facility] [place] [facility] [address] [id number] [place] [address] Sep, [facility] [place] [facility] [address] [id number] [place] [address] Sep, [facility] [place] [facility] [address] [id number] [place] [address] Sep, [facility] [place] [facility] [address] [id number] [place] [address] Aug, [facility] [address] [id number] [place] [address] Aug, [facility] [place] [facility] [address] [id number] [place] [address] Aug, [facility] [address] [id number] [place] [address] Jul, [facility] [place] [facility] [address] [id number] [place] [address] Jun, [facility] [place] [facility] [address] [id number] [place] [address] Jun, [facility] [place] [facility] [address] [id number] [place] [address] May, [facility] [place] [facility] [address] [id number] [place] [address] Apr, [facility] [place] [facility] [address] [id number] [place] [address] March, [facility] [address] [id number] [place] [address] Jan, [facility] [place] [facility] [address] [id number] [place] [address] 29 Dec, 2011 [facility] [address] [id number] [place] [address] 15 Dec, 2011 [facility] [place] [facility] [address] [id number] [place] [address] Nov, [facility] [address] [id number] [place] [address] Oct, [facility] [place] [facility] [address] [id number] [place] [address] Oct, [facility] [address] [id number] [place] [address] Sep, [facility] [place] [facility] [address] [id number] [place] [address] Aug, [facility] [place] [facility] [address] [id number] [place] [address] Dec, [facility] [place] [facility] [address] [id number] [place] [address] Oct, [facility] [place] [facility] [address] [id number] [place] [address] Oct, [facility] [place] [facility] [address] [id number] [place] [address] Oct, [facility] [place] [facility] [address] [id number] [place] [address] Jun, [facility] [place] [facility] [address] [id number] [place] [address] Jun, [facility] [place] [facility] [address] [facility] [id number] [place] [address] Oct, [facility] [place] [facility] [address] [facility] [id number] [place] [address] Sep, [facility] [address] [facility] [id number] [place] [address] Sep, [facility] [address] [facility] [id number] [place] [id number] Sep, [facility] [address] [facility] [id number] [place] [address] Aug, [facility] [address] [facility] [id number] [place] [address] Dec, IMMUNIZATIONS No Known Immunizations SOCIAL HISTORY Never Assessed REASON FOR VISIT Follow-up Depression/Anxiety PLAN OF CARE Activity Details Follow Up 2 Weeks Reason: Follow-up VITAL SIGNS MEDICATIONS Unknown Medications RESULTS No Results PROCEDURES Procedure Date Ordered Result Body Site Psychotherapy, patient &/family, 45 minutes, established patient Aug 31, 2017 INSTRUCTIONS MEDICATIONS ADMINISTERED No Known Medications MEDICAL (GENERAL) HISTORY Type Description Date Medical History GERD Medical History anxiety Medical History depression Surgical History C- section x 2 Surgical History tubal ligation Surgical History hysterectomy 2008 Surgical History cholecystectomy 2013 Surgical History Fibroid removal Hospitalization History inpatient treatment Mirtha SMITH 21 years old Hospitalization History surgeries
--- OUTSIDE RECORDS SUMMARY | 2019-01-13 22:05 | XMS REPORT ---
Author Author PADMINI LUJAN [facility] Address [address] [place] [address] Care Team Providers Care Testing Tech Name Role Phone LEKJPADMINI Unavailable PROBLEMS Type Condition ICD9-CM Code KAO45-FC Code Onset Dates Condition Status SNOMED Code Problem BMI 35.0-35.9,adult Z68.35 Active 691687736 Problem Tobacco use Z72.0 Active 833778706 Problem Chronic fatigue R53.82 Active 66213015 Problem Prediabetes R73.03 Active 546124654 Problem Chronic reflux esophagitis K21.0 Active 734333856 Problem Carpal tunnel syndrome of right wrist G56.01 Active 86642016 Problem PTSD (post-traumatic stress disorder) F43.10 Active 02015708 Problem 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 86839176 Problem Elevated lymphocytes D72.820 Active 30332358 Problem WILMA (generalized anxiety disorder) F41.1 Active 67814782 Problem Severe episode of recurrent major depressive disorder, without psychotic features F33.2 Active 35173454 ALLERGIES Substance Reaction Event Type Date Status Latex rash Drug Allergy Oct, Active Citalopram 20 Mg Tablet Fatigue, "foggy", decreased sex drive Non Drug Allergy Oct, Active ENCOUNTERS Encounter Location Date Diagnosis [facility] [id number] [address] May, [facility] [id number] [address] Apr, [facility] [id number] [place] [address] 87858- 8892 Apr, [facility] [id number] [address] March, Severe episode of recurrent major depressive disorder, without psychotic features F33.2 ; WILMA (generalized anxiety disorder) F41.1 and PTSD (post-traumatic stress disorder) F43.10 [address] [place] [id number] [place] [address] 50716- 4099 March, Severe episode of recurrent major depressive disorder, without psychotic features F33.2 ; WILMA (generalized anxiety disorder) F41.1 and PTSD (post-traumatic stress disorder) F43.10 [facility] [id number] [place] [address] 31150- 9835 March, [facility] [id number] [place] [address] 24590- 8226 Jan, Severe episode of recurrent major depressive disorder, without psychotic features F33.2 ; WILMA (generalized anxiety disorder) F41.1 and PTSD (post-traumatic stress disorder) F43.10 [facility] [id number] [place] [address] 45311- 7052 Jan, Carpal tunnel syndrome of right wrist G56.01 [facility] [id number] [place] [address] 86765- 8316 Jan, Severe episode of recurrent major depressive disorder, without psychotic features F33.2 ; WILMA (generalized anxiety disorder) F41.1 and PTSD (post-traumatic stress disorder) F43.10 [place] [address] [address] 6981 Dec, Severe episode of recurrent major depressive disorder, without psychotic features F33.2 ; WILMA (generalized anxiety disorder) F41.1 and PTSD (post-traumatic stress disorder) F43.10 [place] [id number] [place] [address] 01031- 5787 Dec, Severe episode of recurrent major depressive disorder, without psychotic features F33.2 ; WILMA (generalized anxiety disorder) F41.1 and PTSD (post-traumatic stress disorder) F43.10 [facility] [address] [address] 8478 Dec, Severe episode of recurrent major depressive disorder, without psychotic features F33.2 ; WILMA (generalized anxiety disorder) F41.1 and PTSD (post-traumatic stress disorder) F43.10 [facility] [id number] [place] [address] 05821- 384 Dec, Severe episode of recurrent major depressive disorder, without psychotic features F33.2 [facility] [id number] [place] [address] 988229- 0910 Dec, Severe episode of recurrent major depressive disorder, without psychotic features F33.2 ; WILMA (generalized anxiety disorder) F41.1 and PTSD (post-traumatic stress disorder) F43.10 [facility] [id number] [place] [address] Dec, Severe episode of recurrent major depressive disorder, without psychotic features F33.2 ; WILMA (generalized anxiety disorder) F41.1 and PTSD (post-traumatic stress disorder) F43.10 [facility] [id number] [place] [address] Dec, Severe episode of recurrent major depressive disorder, without psychotic features F33.2 and Anxiety state, unspecified F41.1 [facility] [id number] [place] [address] 17519- 0050 Dec, Severe episode of recurrent major depressive disorder, without psychotic features F33.2 and Anxiety state, unspecified F41.1 [facility] [id number] [place] [address] 59794- 0300 Nov, Depression, major, recurrent, moderate F33.1 and Anxiety state, unspecified F41.1 [facility] [id number] [place] [address] 81630- 8116 Nov, Depression, major, recurrent, moderate F33.1 and Anxiety state, unspecified F41.1 [facility] [id number] [place] [address] 63852- 7552 Oct, Depression, major, recurrent, moderate F33.1 and Anxiety state, unspecified F41.1 [facility] [id number] [place] [address] 81039- 1740 07 Oct, 2017 Depression, major, recurrent, moderate F33.1 and Post- cholecystectomy syndrome K91.5 [place] [id number] [place] [address] Oct, Depression, major, recurrent, moderate F33.1 and Anxiety state, unspecified F41.1 [facility] [id number] [place] [address] 13491- 3133 Sep, Depression, major, recurrent, moderate F33.1 and Anxiety state, unspecified F41.1 [facility] [id number] [place] [address] 332381- 9457 Sep, Depression, major, recurrent, moderate F33.1 and Anxiety state, unspecified F41.1 [facility] [id number] [place] [address] 15953- 6038 Sep, Depression, major, recurrent, moderate F33.1 and Anxiety state, unspecified F41.1 [facility] [id number] [place] [address] 90470- 4345 Sep, Diarrhea, unspecified type R19.7 [facility] [id number] [place] Aug, Depression, major, recurrent, moderate F33.1 and Anxiety state, unspecified F41.1 [facility] [id number] [place] [address] 76921- 8860 Aug, Depression, major, recurrent, moderate F33.1 and Anxiety state, unspecified F41.1 [facility] [id number] [place] [address] 0646 Jul, Depression, major, recurrent, moderate F33.1 and Anxiety state, unspecified F41.1 [facility] [id number] [place] [address] 48817- 6888 Jun, Depression, major, recurrent, moderate F33.1 and Anxiety state, unspecified F41.1 [facility] [address] [place] [address] 48354- 4764 Jun, Generalized abdominal pain R10.84 ; Diarrhea, unspecified type R19.7 ; Acute cystitis without hematuria N30.00 ; Abdominal bloating R14.0 and Elevated blood pressure reading R03.0 [facility] [id number] [place] [address] 44950- 4459 Jun, Depression, major, recurrent, moderate F33.1 and Anxiety state, unspecified F41.1 [facility] [place] [id number] [place] [address] 83355- 5997 May, Depression, major, recurrent, moderate F33.1 and Anxiety state, unspecified F41.1 [facility] [place] [id number] [place] [address] 28544- 2078 May, Elevated lymphocytes D72.820 [id number] [place] [address] 17776- 3920 May, Elevated lymphocytes D72.820 [place] [id number] [place] [address] 60637- 4064 May, BMI 35.0-35.9,adult Z68.35 ; Other fatigue R53.83 ; Pelvic pain R10.2 ; Tobacco use Z72.0 and Chronic reflux esophagitis K21.0 [place] [id number] [place] [address] 42337- 3571 Apr, [address] [id number] [place] [address] 93174- 7018 Apr, Depression, major, recurrent, moderate F33.1 and Anxiety state, unspecified F41.1 [id number] [place] [address] 62674- 9157 Apr, Depression, major, recurrent, moderate F33.1 and Anxiety state, unspecified F41.1 [id number] [place] [address] 80123- 7725 Apr, [place] [id number] [place] [address] 93465- 4894 March, Major depressive disorder, recurrent episode, mild F33.0 and Anxiety state, unspecified F41.1 [facility] [id number] [place] [address] 89666 -3883 March, Sore throat J02.9 and Submandibular lymphadenopathy R59.0 [place] [id number] [place] [address] 89361- 0006 Dec, Major depressive disorder, recurrent episode, mild F33.0 and Anxiety state, unspecified F41.1 [facility] [id number] [place] [address] 89813- 6890 Dec, Major depressive disorder, recurrent episode, mild F33.0 and Anxiety state, unspecified F41.1 [place] [id number] [place] [address] 92617- 1289 Dec, Major depressive disorder, recurrent episode, mild F33.0 and Anxiety state, unspecified F41.1 [place] [id number] [place] [address] 10461- 2193 Sep, Major depressive disorder, recurrent episode, mild F33.0 and Anxiety state, unspecified F41.1 [place] [id number] [place] [address] 78993- 8495 Sep, Major depressive disorder, recurrent episode, moderate F33.1 and Anxiety state, unspecified F41.1 [place] [address] [place] [address] 70182- 1859 Aug, Major depressive disorder, recurrent episode, moderate F33.1 and Anxiety state, unspecified F41.1 [place] [id number] [place] [address] 27216- 8140 Aug, Major depressive disorder, recurrent episode, moderate F33.1 and Anxiety state, unspecified F41.1 [place] [id number] [address]- 8305 Jul, Major depressive disorder, recurrent episode, moderate F33.1 and Anxiety state, unspecified F41.1 [place] [address] [place] [address] 60863- 3395 Jul, Major depressive disorder, recurrent episode, moderate F33.1 and Anxiety state, unspecified F41.1 [place] [id number] [place] [address] 63528- 7365 Jun, Major depressive disorder, recurrent episode, moderate F33.1 and Anxiety state, unspecified F41.1 [place] [id number] [place] [address] 06558- 7951 Jun, Major depressive disorder, recurrent episode, moderate F33.1 and Anxiety state, unspecified F41.1 [place] [id number] [place] [address] 81692- 8732 May, Major depressive disorder, recurrent episode, moderate F33.1 and Anxiety state, unspecified F41.1 [place] [address] [place] [address] 54051- 1831 Apr, Major depressive disorder, recurrent episode, moderate F33.1 and Anxiety state, unspecified F41.1 [place] [address] [place] [address] 91511- 3992 Apr, Major depressive disorder, recurrent episode, moderate F33.1 and Anxiety state, unspecified F41.1 [place] [address] [address]- 0690 Dec, Major depressive disorder, recurrent episode, moderate F33.1 and Anxiety state, unspecified F41.1 [place] [address] [place] [address] 04473- 2690 Dec, Major depressive disorder, recurrent episode, moderate F33.1 and Anxiety state, unspecified F41.1 [facility] [id number] [place] [address] 53371 -3355 Dec, Pharyngitis J02.9 and Acute frontal sinusitis J01.10 [facility] [id number] [place] [address] 97025- 6587 Nov, Bilateral occipital neuralgia M54.81 and Neck muscle spasm M62.838 [facility] [id number] [place] [address] 37295- 4490 Nov, Major depressive disorder, recurrent episode, moderate F33.1 and Anxiety state, unspecified F41.1 [place] [id number] [place] [address] 98286- 0321 Sep, Major depressive disorder, recurrent episode, moderate F33.1 and Anxiety state, unspecified F41.1 [place] [id number] [place] [address] 68077- 0705 Aug, Major depressive disorder, recurrent episode, moderate F33.1 and Anxiety state, unspecified F41.1 [place] [id number] [place] [address] 74694- 0977 Jul, Abdominal pain 789.00 ; Hematochezia 578.1 and Weight loss 783.21 [place] [id number] [place] [address] 50433- 6281 May, [facility] [id number] [place] [address] 70952- 7227 March, [facility] [id number] [place] [address] 61535- 9830 March, [facility] [id number] [place] [address] 52760- 8731 Jan, [facility] [id number] [place] [address] 35657- 2610 Jan, [facility] [id number] [place] [address] 61169- 7242 Dec, [facility] [address] [place] [address]- 0288 Dec, 2014 [facility] [place] [facility] [address] [id number] [place] [address]- 0096 Dec, 2014 [facility] [place] [facility] [address] [id number] [place] [address]- 1476 Dec, 2014 [facility] [place] [facility] [address] [id number] [place] [address] 2546 Dec, 2014 [facility] [place] [facility] [address] [id number] [place] [address] 2540 Dec, 2014 [facility] [place] [facility] [address] [id number] [place] [address]- 3164 25 Jul, 2013 [facility] [place] [facility] [address] [id number] [place] [address]- 2549 25 Jul, 2013 [facility] [place] [facility] [address] [id number] [place] [address]- 254 11 Jul, 2013 [facility] [place] [facility] [address] [id number] [place] [address]- 2548 11 Sep, 2013 [facility] [place] [facility] [address] [id number] [place] [address] 2549 10 Jul, 2013 [facility] [place] [facility] [address] [id number] [place] [address]- 2545 10 Sep, 2013 [facility] [place] [facility] [address] [id number] [place] [address] 2546 09 Sep, 2013 [facility] [place] [facility] [address] [id number] [place] [address] 2543 09 Sep, 2013 [facility] [place] [facility] [address] [id number] [place] [address] 2549 09 Sep, 2013 [facility] [place] [facility] [address] [id number] [place] [address]- 2542 09 Sep, 2013 [facility] [place] [facility] [address] [id number] [place] [address] 2547 Jul, [facility] [place] [facility] [address] [id number] [place] [address]- 8634 Jul, [facility] [place] [facility] [address] [id number] [place] [address]- 5987 May, [facility] [place] [facility] [address] [id number] [place] [address]- 7034 May, [facility] [place] [facility] [address] [id number] [place] [address]- 0711 Apr, [facility] [place] [facility] [address] [id number] [place] [address]- 6431 Apr, [facility] [place] [facility] [address] [id number] [place] [address]- 2235 Apr, [facility] [place] [facility] [address] [id number] [place] [address]- 3893 Apr, [facility] [place] [facility] [address] [id number] [place] [address]- 0688 March, [facility] [place] [facility] [address] [id number] [place] [address]- 4772 March, [facility] [place] [facility] [address] [id number] [place] 4546 Jan, [facility] [place] [facility] [address] [id number] [place] [address]- 6211 Jan, [facility] [place] [facility] [address] [id number] [place] [address]- 7799 Jan, [facility] [place] [facility] [address] [id number] [place] [address]- 9290 Jan, [facility] [place] [facility] [address] [id number] [place] [address]- 3083 Dec, [facility] [place] [facility] [address] [id number] [place] [address]- 4078 Dec, [facility] [place] [facility] [address] [id number] [place] [address]- 4418 18 Dec, 2013 [facility] [place] [facility] [address] [id number] [place] [address]- 3942 18 Dec, 2013 [facility] [place] [facility] [address] [id number] [place] [address]- 1790 15 Dec, 2013 [facility] [place] [facility] [address] [id number] [place] [address]- 8469 14 Dec, 2013 [facility] [place] [facility] [address] [id number] [place] [address]- 0646 13 Dec, 2013 [facility] [place] [facility] [address] [id number] [place] [address]- 6218 13 Dec, 2013 [facility] [place] [facility] [address] [id number] [place] [address]- 9579 12 Dec, 2013 [facility] [place] [facility] [address] [id number] [place] [address]- 1380 12 Dec, 2013 [facility] [place] [facility] [address] [id number] [place] [address]- 8152 05 Dec, 2013 [facility] [place] [facility] [address] [id number] [place] [address]- 1743 05 Dec, 2013 [facility] [place] [facility] [address] [facility] [id number] [place] [address]- 2854 Dec, [facility] [place] [facility] [address] [id number] [place] [address]- 5265 Dec, [facility] [place] [facility] [address] [id number] [place] [address]- 8597 Dec, [facility] [place] [facility] [address] [id number] [place] [address]- 5114 Dec, [facility] [place] [facility] [address] [id number] [place] [address]- 8918 Dec, [facility] [place] [facility] [address] [facility] [id number] [place] [address]- 3015 Dec, [facility] [place] [facility] [address] [id number] [place] [address]- 3042 Nov, [facility] [place] [facility] [address] [id number] [place] [address]- 5161 Nov, [facility] [place] [facility] [address] [id number] [place] [address]- 1724 Nov, [facility] [place] [facility] [address] [id number] [place] [address]- 7450 Nov, [facility] [place] [facility] [address] [id number] [place] [address]- 6040 Nov, [facility] [place] [facility] [address] [id number] [place] [address]- 2670 Nov, [facility] [place] [facility] [address] [id number] [place] [address]- 9600 Nov, [facility] [place] [facility] [address] [id number] [place] [address]- 8533 Nov, [facility] [place] [facility] [address] [id number] [place] [address]- 7320 Oct, [facility] [place] [facility] [address] [id number] [place] [address]- 1435 Oct, [facility] [place] [facility] [address] [id number] [place] [address]- 9794 Oct, [facility] [place] [facility] [address] [id number] [place] [address]- 4083 Oct, [facility] [place] [facility] [address] [id number] [place] 9733 Oct, [facility] [place] [facility] [address] [id number] [place] [address]- 3827 Oct, [facility] [place] [facility] [address] [id number] [place] [address]- 9216 Sep, [facility] [place] [facility] [address] [id number] [place] [address]- 5193 Sep, [facility] [place] [facility] [address] [id number] [place] [address]- 9901 Sep, [facility] [place] [facility] [address] [id number] [place] [address]- 3716 Sep, [facility] [place] [facility] [address] [id number] [place] [address]- 4258 Aug, [facility] [place] [facility] [address] [id number] [place] [address]- 1556 Aug, [facility] [place] [facility] [address] [id number] [place] [address]- 1261 Aug, [facility] [place] [facility] [address] [id number] [place] [address]- 7237 Aug, [facility] [place] [facility] [address] [id number] [place] [address]- 2486 Jul, [facility] [place] [facility] [address] [id number] [place] [address]- 2544 Jul, [facility] [place] [facility] [address] [id number] [place] [address]- 6917 Jun, [facility] [place] [facility] [address] [id number] [place] [address]- 3640 Jun, [facility] [place] [facility] [address] [id number] [place] [address]- 9279 Apr, [facility] [place] [facility] [address] [id number] [place] [address]- 6310 Apr, [facility] [place] [facility] [address] [id number] [place] [address]- 5256 Apr, [facility] [place] [facility] [address] [id number] [place] [address]- 3388 Apr, [facility] [place] [facility] [address] [id number] [place] [address]- 8476 March, [facility] [place] [facility] [address] [id number] [place] [address] 2546 March, [facility] [address] [id number] [place] [address]- 0326 March, [facility] [address] [id number] [place] [address]- 0016 Jan, [facility] [address] [id number] [place] [address]- 4216 Jan, [facility] [address] [id number] [place] [address]- 9160 Dec, [facility] [address] [id number] [place] [address]- 8972 Dec, [facility] [address] [id number] [place] [address] Dec, [facility] [address] [id number] [place] [address] Dec, [facility] [address] [id number] [place] [address] Dec, [facility] [address] [id number] [place] [address] Dec, [facility] [address] [id number] [place] [address] Nov, [facility] [address] [id number] [place] [address] Nov, [facility] [address] [id number] [place] [address] Oct, [facility] [address] [id number] [place] [address] Oct, [facility] [address] [id number] [place] [address] Oct, [facility] [address] [id number] [place] [address] Oct, [facility] [place] [facility] [address] [id number] [place] [address] Oct, [facility] [place] [facility] [address] [id number] [place] [address] Oct, [facility] [place] [facility] [address] [id number] [place] [address] Oct, [facility] [place] [facility] [address] [id number] [place] [address] Oct, [facility] [place] [facility] [address] [id number] [place] [address] Oct, [facility] [place] [facility] [address] [id number] [place] [address] Oct, [facility] [place] [facility] [address] [id number] [place] [address] Sep, [facility] [place] [facility] [address] [id number] [place] [address] Sep, [facility] [place] [facility] [address] [id number] [place] [address] Sep, [facility] [place] [facility] [address] [id number] [place] [address] Sep, [facility] [place] [facility] [address] [id number] [place] [address] Aug, [facility] [place] [facility] [address] [id number] [place] [address] Aug, [facility] [place] [facility] [address] [id number] [place] [address] Aug, [facility] [place] [facility] [address] [id number] [place] [address] Jul, [facility] [place] [facility] [address] [id number] [place] [address] Jun, [facility] [place] [facility] [address] [id number] [place] [address] Jun, [facility] [place] [facility] [address] [id number] [place] [address] May, [facility] [place] [facility] [address] [id number] [place] [address] Apr, [facility] [place] [facility] [address] [id number] [place] [id number] March, [facility] [place] [facility] [address] [id number] [place] [address] Jan, [facility] [place] [facility] [address] [id number] [place] [address] Dec, [facility] [place] [facility] [address] [id number] [place] [address] Dec, [facility] [place] [facility] [address] [id number] [place] [address] Nov, [facility] [place] [facility] [address] [id number] [place] [address] Oct, [facility] [place] [facility] [address] [id number] [place] [address] Oct, [facility] [place] [facility] [address] [id number] [place] [address] Sep, [facility] [place] [facility] [address] [id number] [place] [address] Aug, [facility] [place] [facility] [address] [id number] [place] [address] Dec, [facility] [place] [facility] [address] [id number] [place] [address] Oct, [facility] [place] [facility] [address] [id number] [place] [address] Oct, [facility] [place] [facility] [address] [id number] [place] [address] Oct, [facility] [id number] [address] Jun, [facility] [id number] [address] Jun, [facility] [id number] [address] Oct, [facility] [id number] [address] Sep, [facility] [id number] [address] Sep, [facility] [id number] [address] Sep, [facility] [address] [address] Aug, [facility] [address] [address] Dec, IMMUNIZATIONS No Known Immunizations SOCIAL HISTORY Never Assessed REASON FOR VISIT Follow-up Depression/Anxiety PLAN OF CARE Activity Details Follow Up 1 Week Reason: Follow-up VITAL SIGNS MEDICATIONS Medication Instructions Dosage Frequency Start Date End Date Duration Status Xyzal 5 MG take 1 tablet by Oral route 1 time per day Dec, Unknown Fluticasone Propionate 50 MCG/ACT Nasally Once a day 1 spray in each nostril 24h Dec, 14 days Unknown Pantoprazole Sodium 40 mg Orally Once a day 1 tablet 24h 30 days Unknown Welchol 625 MG Orally 3 times a day 1 tablets with meals 8h Jun, 30 day(s) Unknown RESULTS No Results PROCEDURES Procedure Date Ordered Result Body Site Psychotherapy, patient &/family, 45 minutes, established patient Oct 08, 2017 INSTRUCTIONS MEDICATIONS ADMINISTERED No Known Medications MEDICAL (GENERAL) HISTORY Type Description Date Medical History GERD Medical History anxiety Medical History depression Surgical History C- section x 2 Surgical History tubal ligation Surgical History hysterectomy 2008 Surgical History cholecystectomy 2013 Surgical History Fibroid removal Hospitalization History inpatient treatment Mirtha SMITH 21 years old Hospitalization History surgeries
--- OUTSIDE RECORDS SUMMARY | 2019-01-13 22:05 | XMS REPORT ---
Author Author PADMINI LUJAN [facility] Address [address] [place] [address] Care Team Providers Care Monument Setter Name Role Phone PADMINI LUJAN Unavailable PROBLEMS Type Condition ICD9-CM Code OFF32-BQ Code Onset Dates Condition Status SNOMED Code Problem BMI 35.0-35.9,adult Z68.35 Active 525955492 Problem Tobacco use Z72.0 Active 748658030 Problem Chronic fatigue R53.82 Active 62431153 Problem Prediabetes R73.03 Active 340869480 Problem Chronic reflux esophagitis K21.0 Active 770734245 Problem Carpal tunnel syndrome of right wrist G56.01 Active 17787497 Problem PTSD (post-traumatic stress disorder) F43.10 Active 52360506 Problem 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 01371513 Problem Elevated lymphocytes D72.820 Active 94002402 Problem WILMA (generalized anxiety disorder) F41.1 Active 16098473 Problem Severe episode of recurrent major depressive disorder, without psychotic features F33.2 Active 69363687 ALLERGIES No Information ENCOUNTERS Encounter Location Date Diagnosis [place] [id number] [place] [address] 50500- 6687 Apr, [facility] [id number] [place] [address] 44891- 3382 March, [facility] [id number] [place] [address] 88913- 5382 March, [facility] [address] [address]- 4989 Jan, Severe episode of recurrent major depressive disorder, without psychotic features F33.2 ; WILMA (generalized anxiety disorder) F41.1 and PTSD (post-traumatic stress disorder) F43.10 [facility] [address] 26265- 0136 Jan, Carpal tunnel syndrome of right wrist G56.01 [place] [id number] [place], [place] [address]- [address]57 Jan, Severe episode of recurrent major depressive disorder, without psychotic features F33.2 ; WILMA (generalized anxiety disorder) F41.1 and PTSD (post-traumatic stress disorder) F43.10 [place] [id number] [place] [id number] Dec, Severe episode of recurrent major depressive disorder, without psychotic features F33.2 ; WILMA (generalized anxiety disorder) F41.1 and PTSD (post-traumatic stress disorder) F43.10 [place] [id number] [place] [address] Dec, Severe episode of recurrent major depressive disorder, without psychotic features F33.2 ; WILMA (generalized anxiety disorder) F41.1 and PTSD (post-traumatic stress disorder) F43.10 [place] [id number] [place] [address] 12565- 9061 Dec, Severe episode of recurrent major depressive disorder, without psychotic features F33.2 ; WILMA (generalized anxiety disorder) F41.1 and PTSD (post-traumatic stress disorder) F43.10 [place] [id number] [place] [address] 73333- 7908 Dec, Severe episode of recurrent major depressive disorder, without psychotic features F33.2 [place] [id number] [place] [address]233 Dec, Severe episode of recurrent major depressive disorder, without psychotic features F33.2 ; WILMA (generalized anxiety disorder) F41.1 and PTSD (post-traumatic stress disorder) F43.10 [place] [id number] [place] [address] 6263 Dec, Severe episode of recurrent major depressive disorder, without psychotic features F33.2 ; WILMA (generalized anxiety disorder) F41.1 and PTSD (post-traumatic stress disorder) F43.10 [place] [id number] [place] [address] 11888- 4452 20 Dec, 2017 Severe episode of recurrent major depressive disorder, without psychotic features F33.2 and Anxiety state, unspecified F41.1 [place] [id number] [place] [address] 85826- 9244 14 Dec, 2017 Severe episode of recurrent major depressive disorder, without psychotic features F33.2 and Anxiety state, unspecified F41.1 [place] [id number] [place] [address] 14332- 4085 Nov, Depression, major, recurrent, moderate F33.1 and Anxiety state, unspecified F41.1 [place] [id number] [place] [address] 53034- 7080 Nov, Depression, major, recurrent, moderate F33.1 and Anxiety state, unspecified F41.1 [place] [id number] [place] [address] 20181- 1511 Oct, Depression, major, recurrent, moderate F33.1 and Anxiety state, unspecified F41.1 [place] [id number] [place] [address] 08853- 3015 Oct, Depression, major, recurrent, moderate F33.1 and Post- cholecystectomy syndrome K91.5 [place] [id number] [place] [address] 71680- 4913 Oct, Depression, major, recurrent, moderate F33.1 and Anxiety state, unspecified F41.1 [place] [id number] [place] [address] 07816- 0708 30 Sep, 2017 Depression, major, recurrent, moderate F33.1 and Anxiety state, unspecified F41.1 [place] [id number] [place] [address] 11138- 5012 16 Sep, 2017 Depression, major, recurrent, moderate F33.1 and Anxiety state, unspecified F41.1 [place] [id number] [place] [address] 05072- 0134 Sep, Depression, major, recurrent, moderate F33.1 and Anxiety state, unspecified F41.1 [place] [id number] [place] [address] 2931 Sep, Diarrhea, unspecified type R19.7 [place] [id number] [place] [address] 33229- 2989 Aug, Depression, major, recurrent, moderate F33.1 and Anxiety state, unspecified F41.1 [place] [id number] [place] [address] 89910- 0886 Aug, Depression, major, recurrent, moderate F33.1 and Anxiety state, unspecified F41.1 [place] [id number] [place] [address] 81977- 2201 Jul, Depression, major, recurrent, moderate F33.1 and Anxiety state, unspecified F41.1 [place] [id number] [place] [address] 04057- 7893 Jun, Depression, major, recurrent, moderate F33.1 and Anxiety state, unspecified F41.1 [place] [id number] [place] [address] 09890- 4100 Jun, Generalized abdominal pain R10.84 ; Diarrhea, unspecified type R19.7 ; Acute cystitis without hematuria N30.00 ; Abdominal bloating R14.0 and Elevated blood pressure reading R03.0 [place] [id number] [place] [address] 53946- 3274 Jun, Depression, major, recurrent, moderate F33.1 and Anxiety state, unspecified F41.1 [place] [id number] [place] [address] 4826 May, Depression, major, recurrent, moderate F33.1 and Anxiety state, unspecified F41.1 [place] [id number] [place] [address] 07765- 4425 May, Elevated lymphocytes D72.820 [place] [id number] [place] [address] 87890- 2285 May, Elevated lymphocytes D72.820 [place] [id number] [place] [address] 50638- 8367 May, BMI 35.0-35.9,adult Z68.35 ; Other fatigue R53.83 ; Pelvic pain R10.2 ; Tobacco use Z72.0 and Chronic reflux esophagitis K21.0 [place] [id number] [place] [address] 39537- 1651 Apr, [place] [address] 70386- 3662 Apr, Depression, major, recurrent, moderate F33.1 and Anxiety state, unspecified F41.1 [place] [address] 37285- 1510 Apr, Depression, major, recurrent, moderate F33.1 and Anxiety state, unspecified F41.1 [place] [id number] [place] [address] 56199- 6133 Apr, [place] [id number] [place] [address] 46830- 0223 March, Major depressive disorder, recurrent episode, mild F33.0 and Anxiety state, unspecified F41.1 [facility] [id number] [place] [address] 84910 -2872 March, Sore throat J02.9 and Submandibular lymphadenopathy R59.0 [place] [id number] [place] [address] 24480- 4951 Dec, Major depressive disorder, recurrent episode, mild F33.0 and Anxiety state, unspecified F41.1 [place] [id number] [place] [address] 04171- 2133 Dec, Major depressive disorder, recurrent episode, mild F33.0 and Anxiety state, unspecified F41.1 [place] [address] [address]- 1348 Dec, Major depressive disorder, recurrent episode, mild F33.0 and Anxiety state, unspecified F41.1 [place] [address] [address]- 1089 Sep, Major depressive disorder, recurrent episode, mild F33.0 and Anxiety state, unspecified F41.1 [place] [address] [address]- 6277 Sep, Major depressive disorder, recurrent episode, moderate F33.1 and Anxiety state, unspecified F41.1 [place] [address] [address]- 2028 Aug, Major depressive disorder, recurrent episode, moderate F33.1 and Anxiety state, unspecified F41.1 [place] [address] [address]- 1886 Aug, Major depressive disorder, recurrent episode, moderate F33.1 and Anxiety state, unspecified F41.1 [place] [address] [place] [address] 46317- 8376 Jul, Major depressive disorder, recurrent episode, moderate F33.1 and Anxiety state, unspecified F41.1 [place] [address] [address]- 2306 Jul, Major depressive disorder, recurrent episode, moderate F33.1 and Anxiety state, unspecified F41.1 [place] [address] [address]- 1443 Jun, Major depressive disorder, recurrent episode, moderate F33.1 and Anxiety state, unspecified F41.1 [place] [address] [address]- 8111 Jun, Major depressive disorder, recurrent episode, moderate F33.1 and Anxiety state, unspecified F41.1 [place] [id number] [place] [address] 12731- 2700 May, Major depressive disorder, recurrent episode, moderate F33.1 and Anxiety state, unspecified F41.1 [place] [id number] [place] [address] 92981- 7405 Apr, Major depressive disorder, recurrent episode, moderate F33.1 and Anxiety state, unspecified F41.1 [place] [id number] [place] [address] 52323- 6067 Apr, Major depressive disorder, recurrent episode, moderate F33.1 and Anxiety state, unspecified F41.1 [place] [address] 86013- 6307 Dec, Major depressive disorder, recurrent episode, moderate F33.1 and Anxiety state, unspecified F41.1 [place] [id number] [place] [address] 26149- 8104 Dec, Major depressive disorder, recurrent episode, moderate F33.1 and Anxiety state, unspecified F41.1 [facility] [id number] [place] [address] 85237 -4181 Dec, Pharyngitis J02.9 and Acute frontal sinusitis J01.10 [place] [id number] [place] [address] 72764- 6223 Nov, Bilateral occipital neuralgia M54.81 and Neck muscle spasm M62.838 [place] [id number] [place] [address] 59964- 5260 Nov, Major depressive disorder, recurrent episode, moderate F33.1 and Anxiety state, unspecified F41.1 [place] [id number] [place] [address] 57109- 3494 Sep, Major depressive disorder, recurrent episode, moderate F33.1 and Anxiety state, unspecified F41.1 [place] [id number] [place] [address] 22438- 7820 Aug, Major depressive disorder, recurrent episode, moderate F33.1 and Anxiety state, unspecified F41.1 [facility] [id number] [place] [address] 28103- 0040 Jul, Abdominal pain 789.00 ; Hematochezia 578.1 and Weight loss 783.21 [facility] [id number] [place] [address] 75274- 3088 May, [facility] [address] 95027- 4731 March, [facility] [id number] [place] [address] 01669- 1887 March, [facility] [id number] [place] [address] 52048- 7700 Jan, [facility] [id number] [place] [address] 48636- 4773 Jan, [facility] [id number] [place] [address] 66147- 5120 Dec, [facility] [id number] [place] [address] 54015- 2358 Dec, [facility] [id number] [place] [address] 21224- 0064 Dec, [facility] [id number] [place] [address] 73571- 6705 Dec, [facility] [id number] [place] [address] 15671- 3345 Dec, [facility] [id number] [place] [address] 623666- 2799 Dec, [facility] [id number] [place] [address] 77463- 3260 Jul, [facility] [id number] [place] [address] 47153- 2484 Jul, [facility] [place] [facility] [address] [id number] [place] [address]- 3370 11 Jul, 2013 [facility] [place] [facility] [address] [id number] [place] [address]- 6880 11 Jul, 2013 [facility] [place] [facility] [address] [id number] [place] [address]- 7043 Jul, 2013 [facility] [place] [facility] [address] [id number] [place] [address]- 2804 Jul, 2013 [facility] [place] [facility] [address] [id number] [place] [address]- 1693 Jul, 2013 [facility] [place] [facility] [address] [id number] [place] [address]- 2869 Jul, 2013 [facility] [place] [facility] [address] [id number] [place] [address]- 9156 Jul, 2013 [facility] [place] [facility] [address] [id number] [place] [address]- 6624 Jul, 2013 [facility] [place] [facility] [address] [id number] [place] [address]- 3159 Jul, 2013 [facility] [place] [facility] [address] [id number] [place] [address]- 2516 Jul, 2013 [facility] [place] [facility] [address] [id number] [place] [address]- 7611 May, [facility] [place] [facility] [address] [id number] [place] [address]- 8172 May, [facility] [place] [facility] [address] [id number] [place] [address]- 1280 Apr, [facility] [place] [facility] [address] [id number] [place] [address]- 0455 Apr, [facility] [place] [facility] [address] [id number] [place] [address]- 7904 Apr, [facility] [place] [facility] [address] [id number] [place] [address]- 6360 Apr, [facility] [place] [facility] [address] [id number] [place] [address]- 0140 March, [facility] [place] [facility] [address] [id number] [place] [address]- 7295 March, [facility] [place] [facility] [address] [id number] [place] [address]- 5638 Jan, [facility] [place] [facility] [address] [id number] [place] [address]- 6775 Jan, [facility] [place] [facility] [address] [id number] [place] [address]- 2432 Jan, [facility] [place] [facility] [address] [id number] [place] [address]- 8587 Jan, [facility] [place] [facility] [address] [id number] [place] [address]- 7800 Dec, [facility] [place] [facility] [address] [id number] [place] [address]- 6214 25 Dec, 2013 [facility] [place] [facility] [address] [id number] [place] [address]- 7326 18 Dec, 2013 [facility] [place] [facility] [address] [id number] [place] [address]- 4509 18 Dec, 2013 [facility] [place] [facility] [address] [id number] [place] [address]- 2761 15 Dec, 2013 [facility] [place] [facility] [address] [id number] [place] [address]- 8769 14 Dec, 2013 [facility] [place] [facility] [address] [id number] [place] [address]- 6273 13 Dec, 2013 [facility] [place] [facility] [address] [id number] [place] [address]- 4801 13 Dec, 2013 [facility] [place] [facility] [address] [id number] [place] [address]- 9073 12 Dec, 2013 [facility] [place] [facility] [address] [id number] [place] [address]- 1391 Dec, [facility] [place] [facility] [address] [id number] [place] [address]- 0857 Dec, [facility] [place] [facility] [address] [id number] [place] [address]- 0071 Dec, [facility] [place] [facility] [address] [id number] [place] [address]- 6348 Dec, [facility] [place] [facility] [address] [id number] [place] [address]- 3688 Dec, [facility] [place] [facility] [address] [id number] [place] [address]- 9126 Dec, [facility] [place] [facility] [address] [id number] [place] [address]- 1160 Dec, [facility] [place] [facility] [address] [id number] [place] [address]- 7739 Dec, [facility] [place] [facility] [address] [id number] [place] [address]- 1346 Dec, [facility] [place] [facility] [address] [id number] [place] [address]- 0375 Nov, [facility] [place] [facility] [address] [id number] [place] [address]- 3176 Nov, [facility] [place] [facility] [address] [id number] [place] [address]- 0434 Nov, [facility] [place] [facility] [address] [id number] [place] [address]- 7293 Nov, [facility] [place] [facility] [address] [id number] [place] [address]- 4489 Nov, [facility] [place] [facility] [address] [id number] [place] [address]- 7632 Nov, [facility] [place] [facility] [address] [id number] [place] [address]- 0541 Nov, [facility] [place] [facility] [address] [id number] [place] [address]- 2247 Nov, [facility] [place] [facility] [address] [id number] [place] [address]- 2657 Oct, [facility] [place] [facility] [address] [id number] [place] [address]- 1228 Oct, [facility] [place] [facility] [address] [id number] [place] [address]- 6230 Oct, [facility] [place] [facility] [address] [id number] [place] [address]- 0734 Oct, [facility] [place] [facility] [address] [id number] [place] [address]- 8885 Oct, [facility] [place] [facility] [address] [id number] [place] [address]- 3556 Oct, [facility] [place] [facility] [address] [id number] [address]- 2111 Sep, [facility] [place] [facility] [address] [id number] [place] [address]- 9686 Sep, [facility] [place] [facility] [address] [id number], [place] [address]- 3387 Sep, [facility] [place] [facility] [address] [id number], [place] [address]- 6210 Sep, [facility] [place] [facility] [address] [id number], [place] [address]- 0914 Aug, [facility] [place] [facility] [address] [id number] [place] [address]- 1142 Aug, [facility] [place] [facility] [address] [id number], [place] [address]- 1065 Aug, [facility] [place] [facility] [address] [id number], [place] [address]- 5888 Aug, [facility] [place] [facility] [address] [id number] [place] [address]- 0626 Jul, [facility] [address] [id number] [place] [address]- 4810 05 Jul, 2013 [facility] [address] [id number] [place] [address]- 0564 Jun, [facility] [address] [id number] [place] [address]- 2151 Jun, [facility] [address] [id number] [place] [address]- 1215 28 Apr, 2013 [facility] [address] [id number] [place] [address]- 3711 Apr, [facility] [address] [id number] [place] [address]- 2680 15 Apr, 2013 [facility] [address] [id number] [place] [address]- 3070 Apr, [facility] [address] [id number] [place] [address]- 7149 March, [facility] [address] [id number] [place] [address]- 0581 March, [facility] [address] [id number] [place] [address]- 4176 March, [facility] [address] [id number] [place] [address]- 2474 Jan, [facility] [address] [id number] [place] [address] Jan, [facility] [address] [id number] [place] [address] Dec, [facility] [address] [id number] [place] [address] Dec, [facility] [address] [id number] [place] [address] Dec, [facility] [place] [facility] [address] [id number] [place] [address] Dec, [facility] [place] [facility] [address] [id number] [place] [address] Dec, [facility] [place] [facility] [address] [id number] [place] [address] Dec, [facility] [place] [facility] [address] [id number] [place] [address] Nov, [facility] [address] [id number] [place] [address] Nov, [facility] [place] [facility] [address] [id number] [place] [address] Oct, [facility] [place] [facility] [address] [id number] [place] [address] Oct, [facility] [address] [id number] [place] [address] Oct, [facility] [place] [facility] [address] [id number] [place] [address] Oct, [facility] [place] [facility] [address] [id number] [place] [address] Oct, [facility] [place] [facility] [address] [id number] [place] [address] Oct, [facility] [place] [facility] [address] [id number] [place] [address] Oct, [facility] [place] [facility] [address] [id number] [place] [address] Oct, [facility] [place] [facility] [address] [id number] [place] [address] Oct, [facility] [place] [facility] [address] [id number] [place] [address] Oct, [facility] [place] [facility] [address] [id number] [place] [address] 13 Sep, 2012 [facility] [place] [facility] [address] [id number] [place] [address] Sep, [facility] [place] [facility] [address] [id number] [place] [address] Sep, [facility] [place] [facility] [address] [id number] [place] [address] Sep, [facility] [place] [facility] [address] [id number] [place] [address] Aug, [facility] [place] [facility] [address] [id number] [place] [address], [place] [address] Aug, [facility] [place] [facility] [address] [id number] [place] [address] Aug, [facility] [place] [facility] [id number] [place] [address] Jul, [facility] [place] [facility] [address] [id number] [place] [address] Jun, [facility] [place] [facility] [address] [id number] [place] [address] Jun, [facility] [place] [facility] [address] [id number] [place] [address] May, [facility] [place] [facility] [address] [id number] [place] [address] Apr, [facility] [place] [facility] [address] [id number] [address] March, [facility] [place] [facility] [address] [id number] [place] [address] Jan, [facility] [place] [facility] [address] [id number] [place] [address] 29 Dec, 2011 [facility] [place] [facility] [address] [facility] [id number] [address] 15 Dec, 2011 [facility] [place] [facility] [address] [id number] [place] [address] Nov, [facility] [place] [facility] [address] [id number] [place] [address] Oct, [facility] [place] [facility] [address] [id number] [place] [address] Oct, [facility] [place] [facility] [address] [id number] [place] [address] Sep, [facility] [place] [facility] [address] [id number] [place] [address] Aug, [facility] [place] [facility] [address] [id number] [place] [address] Dec, [facility] [place] [facility] [address] [id number] [place] [address] Oct, [facility] [place] [facility] [address] [id number] [place] [address] Oct, [facility] [place] [facility] [address] [id number] [place] [address] Oct, [facility] [place] [facility] [address] [id number] [place] [address] Jun, [facility] [place] [facility] [address] [id number] [place] [address] Jun, [facility] [place] [facility] [address] [id number] [place] [address] Oct, [facility] [place] [facility] [address] [id number] [place] [address] Sep, [facility] [place] [facility] [address] [id number] [place] [address] Sep, [facility] [place] [facility] [address] [id number] [place] [address] Sep, [facility] [place] [facility] [address] [id number] [place] [address] Aug, [facility] [address] [facility] [id number] [place] [address] Dec, IMMUNIZATIONS No Known Immunizations SOCIAL HISTORY Never Assessed REASON FOR VISIT Follow-up Depression/Anxiety PLAN OF CARE Activity Details Follow Up Next available Reason: Follow-up VITAL SIGNS MEDICATIONS Unknown Medications RESULTS No Results PROCEDURES Procedure Date Ordered Result Body Site Psychotherapy, patient &/family, 45 minutes, established patient Jul 27, 2017 INSTRUCTIONS MEDICATIONS ADMINISTERED No Known Medications MEDICAL (GENERAL) HISTORY Type Description Date Medical History GERD Medical History anxiety Medical History depression Surgical History C- section x 2 Surgical History tubal ligation Surgical History hysterectomy 2008 Surgical History cholecystectomy 2013 Surgical History Fibroid removal Hospitalization History inpatient treatment [facility] SMITH 21 years old Hospitalization History surgeries
--- OUTSIDE RECORDS SUMMARY | 2019-01-13 22:05 | XMS REPORT ---
Author Author FIDEL WESTFALL e[employer] Address Unknown Phone Unavailable Care Team Providers Care Engraving Supervisor Name Role Phone FIDEL WESTFALL CP Unavailable Allergies, Adverse Reactions, Alerts Substance Reaction Event Type Citalopram 20 Mg Tablet Fatigue, "foggy", decreased sex drive Non Drug Allergy Problems Problem Type Condition Code Onset Dates Condition Status Problem Anxiety state, unspecified 300.00 Active Problem Major depressive disorder, recurrent episode, unspecified 296.30 Active Problem Abdominal pain, right upper quadrant 789.01 Active Assessment Weight loss 783.21 Active Assessment Abdominal pain 789.00 Active Assessment Hematochezia 578.1 Active Medications No Known Medications Procedures Procedure Coding System Code Date COMPREHEN METABOLIC PANEL CPT-4 95053 Jul 31, 2015 Office Visit, Est Pt., Level 3 CPT-4 93799 Jul 31, 2015 COMPLETE CBC W/AUTO DIFF WBC CPT-4 36700 Jul 31, 2015 VENIPUNCT, ROUTINE* CPT-4 32725 Jul 31, 2015 Vital Signs Date/Time: Jul 31, 2015 Temperature 97.0 F Weight 169.2 lbs Height 60 in BMI 33.04 Index Blood Pressure Diastolic 78 mmHg Blood Pressure Systolic 120 mmHg Results Name Result Date Reference Range Unit Abnormality Flag CT Scan : Abdomen & Pelvis w/ Contrast ROUTINE VENIPUNCTURE CBC Summary Purpose eClinicalWorks Submission
--- OUTSIDE RECORDS SUMMARY | 2019-01-13 22:06 | XMS REPORT ---
Author Author PADMINI LUJAN [facility] Address [address] [place] [address] Care Team Providers Care Community Health Agent Name Role Phone PADMINI LUJAN Unavailable PROBLEMS Type Condition ICD9-CM Code XIE17-RK Code Onset Dates Condition Status SNOMED Code Problem BMI 35.0-35.9,adult Z68.35 Active 920290411 Problem Tobacco use Z72.0 Active 825927389 Problem Chronic fatigue R53.82 Active 54625149 Problem Prediabetes R73.03 Active 018962150 Problem Chronic reflux esophagitis K21.0 Active 969628078 Problem Carpal tunnel syndrome of right wrist G56.01 Active 59514305 Problem PTSD (post-traumatic stress disorder) F43.10 Active 55161840 Problem 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 96810070 Problem Elevated lymphocytes D72.820 Active 83784168 Problem WILMA (generalized anxiety disorder) F41.1 Active 31730381 Problem Severe episode of recurrent major depressive disorder, without psychotic features F33.2 Active 81151354 ALLERGIES No Information ENCOUNTERS Encounter Location Date Diagnosis [facility] [id number] [place] [address] 85069- 6345 May, [facility] [id number] [place] [address] 08084- 4984 Apr, [facility] [id number] [place] [address] 59246- 5826 Apr, [facility] [facility] [address] 23079- 8752 March, Severe episode of recurrent major depressive disorder, without psychotic features F33.2 ; WILMA (generalized anxiety disorder) F41.1 and PTSD (post-traumatic stress disorder) F43.10 [facility] [address] 6[address]- 4263 March, Severe episode of recurrent major depressive disorder, without psychotic features F33.2 ; WILMA (generalized anxiety disorder) F41.1 and PTSD (post-traumatic stress disorder) F43.10 [facility] [facility] [address] [address] 8[address] March, [facility] [id number] [place] [address] 62721- 4876 Jan, Severe episode of recurrent major depressive disorder, without psychotic features F33.2 ; WILMA (generalized anxiety disorder) F41.1 and PTSD (post-traumatic stress disorder) F43.10 [facility] [id number] [place] [address] 01003- 4562 Jan, Carpal tunnel syndrome of right wrist G56.01 [facility] [id number] [place] [address] 23850- 0186 Jan, Severe episode of recurrent major depressive disorder, without psychotic features F33.2 ; WILMA (generalized anxiety disorder) F41.1 and PTSD (post-traumatic stress disorder) F43.10 [facility] [facility] [address] [place] [address] 20550- 7262 Dec, Severe episode of recurrent major depressive disorder, without 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 ; WILMA (generalized anxiety disorder) F41.1 and PTSD (post-traumatic stress disorder) F43.10 [facility] [address] [place] [address] 60276- 7817 Dec, Severe episode of recurrent major depressive disorder, without psychotic features F33.2 ; WILMA (generalized anxiety disorder) F41.1 and PTSD (post-traumatic stress disorder) F43.10 [facility] [id number] [place] [address] 32725- 9946 Dec, Severe episode of recurrent major depressive disorder, without 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 ; WILMA (generalized anxiety disorder) F41.1 and PTSD (post-traumatic stress disorder) F43.10 [facility] [id number] [place] [address] 26855- 4360 Dec, Severe episode of recurrent major depressive disorder, without psychotic features F33.2 [facility] [id number] [place] [address] 25[address] Dec, Severe episode of recurrent major depressive disorder, without 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 ; WILMA (generalized anxiety disorder) F41.1 and PTSD (post-traumatic stress disorder) F43.10 [facility] [id number] [place] [address] [address]38 Dec, Severe episode of recurrent major depressive disorder, without psychotic features F33.2 ; WILMA (generalized anxiety disorder) F41.1 and PTSD (post-traumatic stress disorder) F43.10 [facility] [id number] [place] [address]- 7026 Dec, Severe episode of recurrent major depressive disorder, without psychotic features F33.2 and Anxiety state, unspecified F41.1 [facility] [id number] [place] [address] 64477- 3809 Dec, Severe episode of recurrent major depressive disorder, without psychotic features F33.2 and Anxiety state, unspecified F41.1 [facility] [id number] [place] [address] 12037- 7960 Nov, Depression, major, recurrent, moderate F33.1 and Anxiety state, unspecified F41.1 [facility] [id number] [place] [address] 96419- 5372 Nov, Depression, major, recurrent, moderate F33.1 and Anxiety state, unspecified F41.1 [facility] [id number] [place] [address] 31085- 1378 Oct, Depression, major, recurrent, moderate F33.1 and Anxiety state, unspecified F41.1 [facility] [id number] [place] [address] 51045- 4954 Oct, Depression, major, recurrent, moderate F33.1 and Post- cholecystectomy syndrome K91.5 [facility] [id number] [place] [address] 4758 07 Oct, 2017 Depression, major, recurrent, moderate F33.1 and Anxiety state, unspecified F41.1 [facility] [id number] [place] 9849 Sep, Depression, major, recurrent, moderate F33.1 and Anxiety state, unspecified F41.1 [facility] [id number] [place] [address]- 6840 Sep, Depression, major, recurrent, moderate F33.1 and Anxiety state, unspecified F41.1 [facility] [place] [address]697- 9669 Sep, Depression, major, recurrent, moderate F33.1 and Anxiety state, unspecified F41.1 [place] [address]- 4843 Sep, Diarrhea, unspecified type R19.7 [place] [id number] [place] [address] 23159- 6198 Aug, Depression, major, recurrent, moderate F33.1 and Anxiety state, unspecified F41.1 [place] [id number] [place] [address] 3939 Aug, Depression, major, recurrent, moderate F33.1 and Anxiety state, unspecified F41.1 [facility] [id number] [place] 3763 Jul, Depression, major, recurrent, moderate F33.1 and Anxiety state, unspecified F41.1 [place] [id number] [place] [address] Jun, Depression, major, recurrent, moderate F33.1 and Anxiety state, unspecified F41.1 [place] [id number] [place] [address] 12712- 2106 Jun, Generalized abdominal pain R10.84 ; Diarrhea, unspecified type R19.7 ; Acute cystitis without hematuria N30.00 ; Abdominal bloating R14.0 and Elevated blood pressure reading R03.0 [facility] [id number] [place] [address] 11403- 7245 Jun, Depression, major, recurrent, moderate F33.1 and Anxiety state, unspecified F41.[address] 46843- 4862 May, Depression, major, recurrent, moderate F33.1 and Anxiety state, unspecified F41.[address] 50993- 8385 May, Elevated lymphocytes D72.820 [place] [id number] [place] [address] 16301- 9941 May, Elevated lymphocytes D72.820 [place] [id number] [place] [address] 94979- 8646 May, BMI 35.0-35.9,adult Z68.35 ; Other fatigue R53.83 ; Pelvic pain R10.2 ; Tobacco use Z72.0 and Chronic reflux esophagitis K21.0 [place] [id number] [place] [address] 78459- 7330 Apr, [place] [id number] [place] [address] 65503- 4737 Apr, Depression, major, recurrent, moderate F33.1 and Anxiety state, unspecified F41.1 [place] [id number] [place] [address] 70800- 5406 Apr, Depression, major, recurrent, moderate F33.1 and Anxiety state, unspecified F41.1 [place] [id number] [place] [address] 20960- 4675 Apr, [address] 63661- 3173 March, Major depressive disorder, recurrent episode, mild F33.0 and Anxiety state, unspecified F41.1 [facility] [id number] [place] [address] 06408 -7514 March, Sore throat J02.9 and Submandibular lymphadenopathy R59.0 [facility] [id number] [place] [address] 61910- 1414 Dec, Major depressive disorder, recurrent episode, mild F33.0 and Anxiety state, unspecified F41.1 [facility] [id number] [place] [address] 56763- 8260 Dec, Major depressive disorder, recurrent episode, mild F33.0 and Anxiety state, unspecified F41.1 [facility] [facility] [id number] [place] [address] 25240- 6698 Dec, Major depressive disorder, recurrent episode, mild F33.0 and Anxiety state, unspecified F41.1 [place] [facility] [id number] [place] [address] 42171- 1612 Sep, Major depressive disorder, recurrent episode, mild F33.0 and Anxiety state, unspecified F41.1 [facility] [facility] [id number] [place] [address] 16743- 6889 Sep, Major depressive disorder, recurrent episode, moderate F33.1 and Anxiety state, unspecified F41.1 [facility] [facility] [id number] [place] [address] 81947- 2800 Aug, Major depressive disorder, recurrent episode, moderate F33.1 and Anxiety state, unspecified F41.1 [facility] [facility] [id number] [place] [address] 34054- 5538 Aug, Major depressive disorder, recurrent episode, moderate F33.1 and Anxiety state, unspecified F41.1 [facility] [facility] [address] [place] [address] 18445- 7397 Jul, Major depressive disorder, recurrent episode, moderate F33.1 and Anxiety state, unspecified F41.1 [facility] [facility] [address] [address]- 1164 Jul, Major depressive disorder, recurrent episode, moderate F33.1 and Anxiety state, unspecified F41.1 [facility] [facility] [address], [place] [address]- 6874 Jun, Major depressive disorder, recurrent episode, moderate F33.1 and Anxiety state, unspecified F41.1 [facility] [facility] [address], [place] [address]- 6102 Jun, Major depressive disorder, recurrent episode, moderate F33.1 and Anxiety state, unspecified F41.1 [facility] [facility] [id number] [place] [address] 28941- 0150 May, Major depressive disorder, recurrent episode, moderate F33.1 and Anxiety state, unspecified F41.1 [facility] [facility] [id number] [place] [address] 69575- 8641 Apr, Major depressive disorder, recurrent episode, moderate F33.1 and Anxiety state, unspecified F41.1 [facility] [facility] [address] [place] [address] 50030- 4963 Apr, Major depressive disorder, recurrent episode, moderate F33.1 and Anxiety state, unspecified F41.1 [facility] [facility] [address] [address]- 7719 Dec, Major depressive disorder, recurrent episode, moderate F33.1 and Anxiety state, unspecified F41.1 [facility] [facility] [address] [address]- 7106 Dec, Major depressive disorder, recurrent episode, moderate F33.1 and Anxiety state, unspecified F41.1 [facility] [address] [address] -9426 Dec, Pharyngitis J02.9 and Acute frontal sinusitis J01.10 [facility] [facility] [id number] [place] [address] 54566- 9034 Nov, Bilateral occipital neuralgia M54.81 and Neck muscle spasm M62.838 [facility] [id number] [place] [address] 20946- 8401 Nov, Major depressive disorder, recurrent episode, moderate F33.1 and Anxiety state, unspecified F41.1 [facility] [id number] [place] [address] 61054- 3677 Sep, Major depressive disorder, recurrent episode, moderate F33.1 and Anxiety state, unspecified F41.1 [facility] [id number] [place] [address] 91336- 7112 Aug, Major depressive disorder, recurrent episode, moderate F33.1 and Anxiety state, unspecified F41.1 [facility] [id number] [place] [address] 88805- 5677 Jul, Abdominal pain 789.00 ; Hematochezia 578.1 and Weight loss 783.21 [facility] [id number] [place] [address] 70123- 6875 May, [facility] [id number] [place] [address] 65202- 3300 March, [facility] [id number] [place] [address] 80463- 5111 March, [facility] [id number] [place] [address] 75280- 8923 Jan, [facility] [id number] [place] [address] 78520- 4360 Jan, [facility] [id number] [place] [address] 79995- 7355 Dec, [facility] [id number] [place] [address] 23898- 8225 Dec, [facility] [id number] [place] [address] 42627- 1450 Dec, 2014 [facility] [place] [facility] [address] [id number] [place] [address]- 0586 Dec, 2014 [facility] [place] [facility] [address] [id number] [place] [address]- 8336 Dec, 2014 [facility] [place] [facility] [address] [id number] [place] [address]- 0151 Dec, 2014 [facility] [place] [facility] [address] [id number] [place] [address]- 1383 Jul, 2013 [facility] [place] [facility] [address] [id number] [place] [address]- 3165 25 Jul, 2013 [facility] [place] [facility] [address] [id number] [place] [address]- 6733 11 Jul, 2013 [facility] [place] [facility] [address] [id number] [place] [address]- 4981 11 Jul, 2013 [facility] [place] [facility] [address] [id number] [place] [address]- 2545 10 Sep, 2013 [facility] [place] [facility] [address] [id number] [place] [address]- 7201 10 Jul, 2013 [facility] [place] [facility] [address] [id number] [place] [address]- 7675 09 Sep, 2013 [facility] [place] [facility] [address] [id number] [place] [address] 2548 09 Sep, 2013 [facility] [place] [facility] [address] [id number] [address]- 2542 09 Sep, 2013 [facility] [place] [facility] [address] [id number] [place] [address]- 2548 09 Sep, 2013 [facility] [place] [facility] [address] [id number] [place] [address]- 1139 04 Sep, 2013 [facility] [place] [facility] [address] [id number] [place] [address]- 2333 04 Sep, 2013 [facility] [place] [facility] [address] [id number] [place] [address]- 7760 May, [facility] [place] [facility] [address] [id number] [place] [address]- 6079 May, [facility] [place] [facility] [address] [id number] [place] [address]- 9309 Apr, [facility] [place] [facility] [address] [id number] [place] [address]- 7483 Apr, [facility] [place] [facility] [address] [id number] [place] [address]- 2917 Apr, [facility] [place] [facility] [address] [id number] [place] [address]- 5243 Apr, [facility] [place] [facility] [address] [id number] [place] [address]- 8622 March, [facility] [place] [facility] [address] [id number] [place] [address]- 4137 March, [facility] [place] [facility] [address] [id number] [place] 3014 Jan, [facility] [place] [facility] [address] [id number] [place] [address]- 2735 Jan, [facility] [place] [facility] [address] [id number] [place] [address]- 9332 Jan, [facility] [place] [facility] [address] [id number] [place] [address]- 1509 Jan, [facility] [place] [facility] [address] [id number] [place] [address]- 8105 Dec, [facility] [place] [facility] [address] [id number] [place] [address]- 2556 Dec, [facility] [place] [facility] [address] [id number] [place] [address]- 0466 Dec, [facility] [place] [facility] [address] [id number] [place] [address]- 3649 18 Dec, 2013 [facility] [place] [facility] [address] [id number] [place] [address]- 7574 15 Dec, 2013 [facility] [place] [facility] [address] [id number] [place] [address]- 6885 14 Dec, 2013 [facility] [place] [facility] [address] [id number] [place] [address]- 2688 13 Dec, 2013 [facility] [place] [facility] [address] [id number] [place] [address]- 3492 13 Dec, 2013 [facility] [place] [facility] [address] [id number] [place] [address]- 3034 12 Dec, 2013 [facility] [place] [facility] [address] [id number] [place] [address]- 3816 12 Dec, 2013 [facility] [place] [facility] [address] [id number] [place] [address]- 7194 05 Dec, 2013 [facility] [place] [facility] [address] [id number] [place] [address]- 8635 05 Dec, 2013 [facility] [place] [facility] [address] [id number] [place] [address]- 3739 Dec, [facility] [place] [facility] [address] [id number] [place] [address]- 4588 Dec, [facility] [place] [facility] [address] [id number] [place] [address]- 8054 Dec, [facility] [place] [facility] [address] [id number] [place] [address]- 6075 Dec, [facility] [place] [facility] [address] [id number] [place] [address]- 5099 Dec, [facility] [place] [facility] [address] [id number] [place] [address]- 3115 Dec, [facility] [place] [facility] [address] [id number] [place] [address]- 3417 Nov, [facility] [place] [facility] [address] [id number] [place] [address]- 6444 Nov, [facility] [address] [id number] [place] [address]- 3255 Nov, [facility] [address] [id number] [place] [address]- 5026 Nov, [facility] [address] [id number] [place] [address]- 0126 Nov, [facility] [address] [id number] [place] [address]- 3534 Nov, [facility] [address] [id number] [place] [address]- 4553 Nov, [facility] [address] [id number] [place] [address]- 3276 Nov, [facility] [address] [id number] [place] [address]- 9379 Oct, [facility] [address] [id number] [place] [address]- 6648 Oct, [facility] [address] [id number] [place] [address]- 3485 Oct, [facility] [address] [id number] [place] [address]- 8661 Oct, [facility] [address] [id number] [place] [address]- 2546 Oct, [facility] [address] [id number] [place] [address]- 2546 Oct, [facility] [place] [facility] [address] [id number] [place] [address]- 9986 Sep, [facility] [place] [facility] [address] [id number] [place] [address]- 2546 Sep, [facility] [address] [id number] [place] [address]- 2486 Sep, [facility] [place] [facility] [address] [id number] [place] [address]- 9496 Sep, [facility] [place] [facility] [address] [id number] [place] [address]- 4629 Aug, [facility] [place] [facility] [address] [id number] [place] [address]- 0244 Aug, [facility] [place] [facility] [address] [id number] [place] [address]- 2211 Aug, [facility] [place] [facility] [address] [id number] [place] 1666 Aug, [facility] [place] [facility] [address] [id number] [place] 3705 Jul, [facility] [place] [facility] [address] [id number] [place] [address]- 9047 Jul, [facility] [place] [facility] [address] [id number] [place] [address]- 3194 Jun, [facility] [place] [facility] [address] [id number] [place] 3826 Jun, [facility] [place] [facility] [address] [id number], [place] [address]- 4347 Apr, [facility] [place] [facility] [address] [id number], [place] [address]- 3631 Apr, [facility] [place] [facility] [address] [id number], [place] [address]- 7331 15 Apr, 2013 [facility] [place] [facility] [address] [id number] [place] [address]- 1386 Apr, [facility] [place] [facility] [address] [id number], [place] [address]- 6566 30 Mar, 2013 [facility] [place] [facility] [address] [id number], [place] [address]- 9308 March, [facility] [place] [facility] [address] [id number], [place] [address]- 0909 March, [facility] [address] [id number] [place] [address]- 1001 Jan, [facility] [address] [id number] [place] [address]- 6806 Jan, [facility] [address] [id number] [place] [address]- 4006 Dec, [facility] [address] [id number] [place] [address] Dec, [facility] [address] [id number] [place] [address] Dec, [facility] [address] [id number] [place] [address] Dec, [facility] [address] [id number] [place] [address] Dec, [facility] [address] [id number] [place] [address] Dec, [facility] [address] [id number] [place] [address] Nov, [facility] [address] [facility] [id number] [place] [address] Nov, [facility] [address] [id number] [place] [address] Oct, [facility] [address] [id number] [place] [address] Oct, [facility] [place] [facility] [address] [id number] [place] [address] Oct, [facility] [address] [id number] [place] [address] Oct, [facility] [address] [id number] [place] [address] Oct, [facility] [place] [facility] [address] [id number] [place] [address] Oct, [facility] [place] [facility] [address] [id number] [place] [address]- [address] Oct, [facility] [place] [facility] [address] [id number] [place] [address] Oct, [facility] [place] [facility] [address] [id number] [place] [address] Oct, [facility] [place] [facility] [address] [id number] [place] [address] Oct, [facility] [place] [facility] [address] [id number] [place] [address] Sep, [facility] [place] [facility] [address] [id number] [place] [address] Sep, [facility] [place] [facility] [address] [id number] [place] [address] Sep, [facility] [place] [facility] [address] [id number] [place] [address] Sep, [facility] [place] [facility] [address] [id number] [place] [address] Aug, [facility] [place] [facility] [address] [id number] [place] [address] Aug, [facility] [place] [facility] [address] [id number] [place] [address] Aug, [facility] [place] [facility] [address] [id number] [place] [address] Jul, [facility] [place] [facility] [address] [id number] [place] [address] Jun, [facility] [place] [facility] [address] [id number] [place] [address] Jun, [facility] [place] [facility] [address] [id number] [place] [address] May, [facility] [address] [id number] [place] [address] Apr, [facility] [facility] [address] [id number] [place] [address] March, [facility] [place] [facility] [address] [id number] [place] [address] Jan, [facility] [place] [facility] [address] [id number] [place] [address] Dec, [facility] [place] [facility] [address] [id number] [place] [address] Dec, [facility] [place] [facility] [address] [id number] [place] [address] Nov, [facility] [address] [id number] [place] [address] Oct, [facility] [place] [facility] [address] [id number] [place] [address] Oct, [facility] [address] [id number] [place] [address] Sep, [facility] [place] [facility] [address] [id number] [place] [address] Aug, [facility] [facility] [address] [id number] [place] [address] Dec, [facility] [place] [facility] [address] [id number] [place] [address] Oct, [facility] [facility] [address] [id number] [place] [address] Oct, [facility] [place] [facility] [address] [id number] [place] [address] Oct, [facility] [place] [facility] [address] [id number] [place] [address] Jun, [facility] [place] [facility] [address] [id number] [place] [address] Jun, [facility] [address] [id number] [address] Oct, [facility] [id number] [address] Sep, [facility] [address] [id number] [address] Sep, [facility] [id number] [address] Sep, [facility] [address] [id number] [address] Aug, [facility] [id number] [address] Dec, IMMUNIZATIONS No Known Immunizations SOCIAL HISTORY Never Assessed REASON FOR VISIT Follow-up Depression/Anxiety PLAN OF CARE Activity Details Follow Up 1 Week Reason: Follow-up VITAL SIGNS MEDICATIONS Unknown Medications RESULTS No Results PROCEDURES Procedure Date Ordered Result Body Site Psychotherapy, patient &/family, 45 minutes, established patient Nov 25, 2017 INSTRUCTIONS MEDICATIONS ADMINISTERED No Known [...]
--- OUTSIDE RECORDS SUMMARY | 2019-01-13 22:06 | XMS REPORT ---
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 Name Role Phone SAUNDRA WESTFALLY Unavailable PROBLEMS Type Condition ICD9-CM Code KRL16-DI Code Onset Dates Condition Status SNOMED Code Problem Chronic reflux esophagitis K21.0 Active 919526284 Problem Chronic fatigue R53.82 Active 84816264 Problem BMI 35.0-35.9,adult Z68.35 Active 211360686 Problem Prediabetes R73.03 Active 896862379 Problem PTSD (post-traumatic stress disorder) F43.10 Active 26945571 Problem WILMA (generalized anxiety disorder) F41.1 Active 24756241 Problem Elevated lymphocytes D72.820 Active 03030821 Problem Tobacco use Z72.0 Active 061977861 Problem Severe episode of recurrent major depressive disorder, without psychotic features F33.2 Active 51006324 Problem 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 57264861 ALLERGIES No Information ENCOUNTERS Encounter Location Date Diagnosis [place] [id number] [place] [address] 55710- 8070 Apr, [facility] [id number] [place] [address] 68741- 3574 Jan, [facility] [id number] [place] [address] 10815- 3355 Jan, [facility] [id number] [place] [address] 40200- 5473 Dec, Severe episode of recurrent major depressive disorder, without psychotic features F33.2 ; WILMA (generalized anxiety disorder) F41.1 and PTSD (post-traumatic stress disorder) F43.10 [facility] [id number] [place] [address] 39225- 5897 Dec, Severe episode of recurrent major depressive disorder, without psychotic features F33.2 ; WILMA (generalized anxiety disorder) F41.1 and PTSD (post-traumatic stress disorder) F43.10 [place] [address] [place] [id number] [place] [address] Dec, Severe episode of recurrent major depressive disorder, without psychotic features F33.2 ; WILMA (generalized anxiety disorder) F41.1 and PTSD (post-traumatic stress disorder) F43.10 [place] [address] [place] [address] [id number] [place] [address] 97809- 7071 Dec, Severe episode of recurrent major depressive disorder, without 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 [place] [address] [place] [id number] [place] [address] 80659- 5821 Dec, Severe episode of recurrent major depressive disorder, without psychotic features F33.2 ; WILMA (generalized anxiety disorder) F41.1 and PTSD (post-traumatic stress disorder) F43.10 [place] [address] [id number] [place] [address] 39141- 4042 Dec, Severe episode of recurrent major depressive disorder, without psychotic features F33.2 ; WILMA (generalized anxiety disorder) F41.1 and PTSD (post-traumatic stress disorder) F43.10 [place] [address] [id number] [place] [address] 74496- 2297 Dec, Severe episode of recurrent major depressive disorder, without 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 and Anxiety state, unspecified F41.1 [place] [address] [id number] [place] [address] 04616- 2931 Dec, Severe episode of recurrent major depressive disorder, without 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 and Anxiety state, unspecified F41.1 [place] [id number] [place] [address] 94946- 0583 Nov, Depression, major, recurrent, moderate F33.1 and Anxiety state, unspecified F41.1 [place] [address] [id number] [place] [address] 86984- 5846 Nov, Depression, major, recurrent, moderate F33.1 and Anxiety state, unspecified F41.1 [place] [address] [place] [id number] [place] [address] 55571- 7969 Oct, Depression, major, recurrent, moderate F33.1 and Anxiety state, unspecified F41.1 [place] [address] [place] [id number] [place] [address] 71259- 2387 Oct, Depression, major, recurrent, moderate F33.1 and Post- cholecystectomy syndrome K91.5 [place] [address] [id number] [place] [address] 63278- 9536 Oct, Depression, major, recurrent, moderate F33.1 and Anxiety state, unspecified F41.1 [place] [id number] [place] [address] 02620- 2472 Sep, Depression, major, recurrent, moderate F33.1 and Anxiety state, unspecified F41.1 [place] [id number] [place] [address] 37748- 1495 Sep, Depression, major, recurrent, moderate F33.1 and Anxiety state, unspecified F41.1 [place] [address] [id number] [place] [address] 07425- 0102 Sep, Depression, major, recurrent, moderate F33.1 and Anxiety state, unspecified F41.1 [place] [address] [id number] [place] [address] 60456- 8372 Sep, Diarrhea, unspecified type R19.7 [place] [address] [id number] [place] [address] 41505- 3751 Aug, Depression, major, recurrent, moderate F33.1 and Anxiety state, unspecified F41.1 [place] [id number] [place] [address] 64836- 1408 Aug, Depression, major, recurrent, moderate F33.1 and Anxiety state, unspecified F41.1 [place] [address] [address] [address] Jul, Depression, major, recurrent, moderate F33.1 and Anxiety state, unspecified F41.1 [place] [address] [place] 195581- 4959 Jun, Depression, major, recurrent, moderate F33.1 and Anxiety state, unspecified F41.1 [place] [address] [place] [id number]- 4538 Jun, Generalized abdominal pain R10.84 ; Diarrhea, unspecified type R19.7 ; Acute cystitis without hematuria N30.00 ; Abdominal bloating R14.0 and Elevated blood pressure reading R03.0 [place] [address] [place] 195582- 3696 Jun, Depression, major, recurrent, moderate F33.1 and Anxiety state, unspecified F41.1 [place] [address] [place] [id number]- 2299 May, Depression, major, recurrent, moderate F33.1 and Anxiety state, unspecified F41.1 [place] [address] [place] [id number]- 5320 May, Elevated lymphocytes D72.820 [place] [address] 33362- 2414 May, Elevated lymphocytes D72.820 [place] [address] [place] [id number]- 7973 May, BMI 35.0-35.9,adult Z68.35 ; Other fatigue R53.83 ; Pelvic pain R10.2 ; Tobacco use Z72.0 and Chronic reflux esophagitis K21.0 [place] [address] [place] [address] [id number] [place] [address]- 0271 Apr, [place] [address] [place] 9[address]- 6540 Apr, Depression, major, recurrent, moderate F33.1 and Anxiety state, unspecified F41.1 [facility] [address] [address]- 3333 Apr, Depression, major, recurrent, moderate F33.1 and Anxiety state, unspecified F41.1 [facility] [address] [address]- 0264 Apr, [facility] [address] [place] [id number] [place] [address] 53373- 3909 March, Major depressive disorder, recurrent episode, mild F33.0 and Anxiety state, unspecified F41.1 [facility] [id number] [place] [address] 91293 -4841 March, Sore throat J02.9 and Submandibular lymphadenopathy R59.0 [facility] [address] [address]- 4811 Dec, Major depressive disorder, recurrent episode, mild F33.0 and Anxiety state, unspecified F41.1 [place] [address] [place] [address] 34936- 8965 Dec, Major depressive disorder, recurrent episode, mild F33.0 and Anxiety state, unspecified F41.1 [place] [address] [place] [address] 16357- 8700 Dec, Major depressive disorder, recurrent episode, mild F33.0 and Anxiety state, unspecified F41.1 [facility] [address] [address]- 0610 Sep, Major depressive disorder, recurrent episode, mild F33.0 and Anxiety state, unspecified F41.1 [place] [address] [place] [id number] [place] [address] 26598- 3151 Sep, Major depressive disorder, recurrent episode, moderate F33.1 and Anxiety state, unspecified F41.1 [place] [address] [place] [address] 78818- 4219 Aug, Major depressive disorder, recurrent episode, moderate F33.1 and Anxiety state, unspecified F41.1 [place] [address] [place] [address] 38594- 8688 Aug, Major depressive disorder, recurrent episode, moderate F33.1 and Anxiety state, unspecified F41.1 [place] [address] [address]- 0558 Jul, Major depressive disorder, recurrent episode, moderate F33.1 and Anxiety state, unspecified F41.1 [place] [address] [place] [id number] [place] [address] 40538- 6512 Jul, Major depressive disorder, recurrent episode, moderate F33.1 and Anxiety state, unspecified F41.1 [place] [address] [place] [id number] [place] [address] 03548- 4493 Jun, Major depressive disorder, recurrent episode, moderate F33.1 and Anxiety state, unspecified F41.1 [place] [address] [place] [id number] [place] [address] 36919- 0780 Jun, Major depressive disorder, recurrent episode, moderate F33.1 and Anxiety state, unspecified F41.1 [place] [address] [address]- 8707 May, Major depressive disorder, recurrent episode, moderate F33.1 and Anxiety state, unspecified F41.1 [place] [address] [place] [address] 81494- 1772 Apr, Major depressive disorder, recurrent episode, moderate F33.1 and Anxiety state, unspecified F41.1 [place] [address] [place] [id number] [place] [address] 91712- 6463 Apr, Major depressive disorder, recurrent episode, moderate F33.1 and Anxiety state, unspecified F41.1 [place] [address] [address]- 7884 Dec, Major depressive disorder, recurrent episode, moderate F33.1 and Anxiety state, unspecified F41.1 [facility] [id number] [place] [address] 98726- 6824 Dec, Major depressive disorder, recurrent episode, moderate F33.1 and Anxiety state, unspecified F41.1 [facility] [id number] [place] [address] 56955 -3840 Dec, Pharyngitis J02.9 and Acute frontal sinusitis J01.10 [facility] [address] [place] [address] [id number] [place] [address] 20876- 5917 Nov, Bilateral occipital neuralgia M54.81 and Neck muscle spasm M62.838 [place] [address] [place] [id number] [place] [address] 07767- 8768 Nov, Major depressive disorder, recurrent episode, moderate F33.1 and Anxiety state, unspecified F41.1 [place] [address] [place] [address] [id number] [place] [address] 65643- 6373 Sep, Major depressive disorder, recurrent episode, moderate F33.1 and Anxiety state, unspecified F41.1 [place] [address] [place] [id number] [place] [address] 17430- 2077 Aug, Major depressive disorder, recurrent episode, moderate F33.1 and Anxiety state, unspecified F41.1 [place] [address] [place] [id number] [place] [address] 35823- 2043 Jul, Abdominal pain 789.00 ; Hematochezia 578.1 and Weight loss 783.21 [facility] [address] [place] [id number] [place] [address] 79480- 2720 May, [place] [address] [place] [id number] [place] [address] 48719- 5802 March, [place] [address] [place] [address] [id number] [place] [address] 29022- 7488 March, [facility] [address] 46739- 1786 14 Jan, 2014 [facility] [place] [facility] [address] [id number] [place] [address]- 0756 13 Jan, 2014 [facility] [place] [facility] [address] [id number] [place] [address]- 5456 Dec, 2014 [facility] [place] [facility] [address] [facility] [id number] [place] [address]- 8066 Dec, 2014 [facility] [place] [facility] [address] [id number] [place] [address]- 6709 Dec, 2014 [facility] [place] [facility] [address] [id number] [place] [address]- 1309 Dec, 2014 [facility] [place] [facility] [address] [facility] [id number] [place] [address]- 0229 Dec, 2014 [facility] [place] [facility] [address] [facility] [id number] [place] [address]- 9147 Dec, 2014 [facility] [place] [facility] [address] [facility] [id number] [place] [address]- 7880 Jul, 2013 [facility] [place] [facility] [address] [id number] [place] [address]- 2545 25 Jul, 2013 [facility] [place] [facility] [address] [facility] [id number] [place] [address]- 2503 Jul, 2013 [facility] [place] [facility] [address] [facility] [id number] [place] [address] 2548 11 Jul, 2013 [facility] [place] [facility] [address] [id number] [address]- 2543 10 Jul, 2013 [facility] [place] [facility] [address] [id number] [place] [address]- 2544 10 Jul, 2013 [facility] [place] [facility] [address] [facility] [id number] [place] [address]- 2541 09 Jul, 2013 [facility] [place] [facility] [address] [facility] [id number] [address]- 2549 09 Jul, 2013 [facility] [place] [facility] [address] [id number] [place] [address]- 1406 09 Jul, 2013 [facility] [place] [facility] [address] [id number] [place] [address]- 3216 Jul, [facility] [place] [facility] [address] [id number] [place] [address]- 6646 Jul, [facility] [place] [facility] [address] [id number] [place] [address]- 8847 Jul, [facility] [place] [facility] [address] [id number] [place] [address]- 7626 May, [facility] [place] [facility] [address] [id number] [place] [address]- 4582 May, [facility] [place] [facility] [address] [id number] [place] [address]- 4995 Apr, [facility] [place] [facility] [address] [id number] [place] [address]- 8381 Apr, [facility] [place] [facility] [address] [id number] [place] [address]- 9343 Apr, [facility] [place] [facility] [address] [id number] [place] [address]- 6516 Apr, [facility] [place] [facility] [address] [id number] [place] [address]- 0588 March, [facility] [place] [facility] [address] [id number] [place] [address]- 6102 March, [facility] [place] [facility] [address] [id number] [place] 8557 Jan, [facility] [place] [facility] [address] [id number] [place] 7306 Jan, [facility] [place] [facility] [address] [id number] [place] [address]- 8198 Jan, [facility] [place] [facility] [address] [id number] [place] [address]- 2788 Jan, 2014 [facility] [place] [facility] [address] [id number] [place] [address]- 4009 Dec, [facility] [place] [facility] [address] [id number] [place] [address]- 7147 25 Dec, 2013 [facility] [place] [facility] [address] [id number] [place] [address]- 8945 18 Dec, 2013 [facility] [place] [facility] [address] [id number] [place] [address]- 6919 18 Dec, 2013 [facility] [place] [facility] [address] [id number] [place] [address]- 8992 15 Dec, 2013 [facility] [place] [facility] [address] [id number] [place] [address]- 0332 14 Dec, 2013 [facility] [place] [facility] [address] [id number] [place] [address]- 1906 13 Dec, 2013 [facility] [place] [facility] [address] [id number] [place] [address]- 9924 13 Dec, 2013 [facility] [place] [facility] [address] [id number] [place] [address]- 8613 12 Dec, 2013 [facility] [place] [facility] [address] [id number] [place] [address]- 7818 12 Dec, 2013 [facility] [place] [facility] [address] [id number] [place] [address]- 9858 05 Dec, 2013 [facility] [place] [facility] [address] [id number] [address]- 7353 05 Dec, 2013 [facility] [place] [facility] [address] [id number] [place] [address]- 0672 Dec, [facility] [place] [facility] [address] [id number] [place] [address]- 6261 Dec, [facility] [place] [facility] [address] [id number] [place] [address]- 8055 Dec, [facility] [place] [facility] [address] [id number] [place] [address]- 8542 Dec, [facility] [address] [id number] [place] [address]- 2356 Dec, [facility] [place] [facility] [address] [id number] [place] [address]- 6906 Dec, [facility] [address] [id number] [place] [address]- 3356 Nov, [facility] [place] [facility] [address] [id number] [place] [address]- 5909 Nov, [facility] [address] [id number] [place] [address]- 9463 Nov, [facility] [address] [id number] [place] [address]- 6542 Nov, [facility] [address] [id number] [place] [address]- 7887 Nov, [facility] [address] [id number] [place] [address]- 3341 Nov, [facility] [address] [id number] [place] [address]- 8203 Nov, [facility] [address] [id number] [place] [address]- 5607 Nov, [facility] [address] [id number] [place] [address]- 9060 Oct, [facility] [address] [id number] [place] [address]- 0263 Oct, [facility] [place] [facility] [address] [id number] [place] [address]- 4251 Oct, [facility] [place] [facility] [address] [id number] [place] [address]- 8396 Oct, [facility] [place] [facility] [address] [id number] [place] [address]- 0606 Oct, [facility] [place] [facility] [address] [id number] [place] [address]- 0070 Oct, [facility] [place] [facility] [address] [id number] [place] [address]- 9237 Sep, [facility] [place] [facility] [address] [id number] [place] [address]- 2605 Sep, [facility] [place] [facility] [address] [id number] [place] [address]- 0057 Sep, [facility] [place] [facility] [address] [id number] [place] [address]- 6120 Sep, [facility] [place] [facility] [address] [id number] [place] [address]- 7727 Aug, [facility] [place] [facility] [address] [id number] [place] [address]- 6485 Aug, [facility] [place] [facility] [address] [id number] [place] [address]- 3205 Aug, [facility] [place] [facility] [address] [id number] [place] [address]- 2382 Aug, [facility] [place] [facility] [address] [id number] [place] [address]- 7074 Jul, [facility] [place] [facility] [address] [id number] [place] [address]- 7966 Jul, [facility] [place] [facility] [address] [id number] [place] [address]- 7651 Jun, [facility] [place] [facility] [address] [id number] [place] [address] 2545 Jun, [facility] [place] [facility] [address] [id number] [place] [address]- 1236 Apr, [facility] [place] [facility] [address] [id number] [place] [address]- 0281 Apr, [facility] [place] [facility] [address] [id number] [place] [address]- 4401 15 Apr, 2013 [facility] [address] [id number] [place] [address]- 8830 14 Apr, 2013 [facility] [address] [id number] [place] [address]- 6346 March, [facility] [address] [id number] [place] [address]- 3915 March, [facility] [address] [id number] [place] [address]- 0984 March, [facility] [address] [id number] [place] [address]- 3240 Jan, [facility] [address] [id number] [place] [address]- 1570 Jan, [facility] [address] [id number] [place] [address]- 0240 Dec, [facility] [address] [id number] [place] [address]- 9358 Dec, [facility] [address] [id number] [place] [address]- 4898 Dec, [facility] [address] [id number] [place] [address]- 3665 Dec, [facility] [address] [id number] [place] [address]- 0645 Dec, [facility] [address] [id number] [place] [address]- 2543 Dec, [facility] [place] [facility] [address] [id number] [place] [address]- 2452 Nov, [facility] [place] [facility] [address] [id number] [place] [address]- 7476 Nov, [facility] [address] [id number] [place] [address]- 5807 Oct, [facility] [address] [id number] [place] [address]- 2358 Oct, [facility] [place] [facility] [address] [id number] [place] [address]- 9780 Oct, [facility] [place] [facility] [address] [id number] [place] [address]- 1229 Oct, [facility] [place] [facility] [address] [id number] [place] [address]- 9520 Oct, [facility] [address] [id number] [place] [address] Oct, [facility] [place] [facility] [address] [id number] [place] [address] Oct, [facility] [address] [id number] [place] [address] Oct, [facility] [address] [id number] [place] [address] Oct, [facility] [place] [facility] [address] [id number] [place] [address] Oct, [facility] [place] [facility] [address] [id number] [place] [address] Sep, [facility] [place] [facility] [address] [id number] [place] [address] Sep, [facility] [place] [facility] [address] [id number] [address] Sep, [facility] [place] [facility] [address] [id number] [place] [address] Sep, [facility] [place] [facility] [address] [id number] [place] [address] Aug, [facility] [place] [facility] [address] [id number] [place] [address] Aug, [facility] [place] [facility] [address] [id number] [place] [address] Aug, [facility] [place] [facility] [address] [id number] [place] [address] Jul, [facility] [place] [facility] [address] [id number] [place] [address] Jun, [facility] [place] [facility] [address] [id number] [place] [address] Jun, [facility] [place] [facility] [address] [id number] [place] [address] May, [facility] [place] [facility] [address] [id number] [place] [address] Apr, [facility] [place] [facility] [address] [id number] [place] [address] March, [facility] [place] [facility] [address] [facility] [id number] [place] [address]- [address] Jan, [facility] [place] [facility] [address] [id number] [place] [address]- [address] Dec, [facility] [place] [facility] [address] [id number] [place] [address] Dec, [facility] [place] [facility] [address] [facility] [id number] [place] [address] Nov, [facility] [place] [facility] [address] [id number] [place] [address] Oct, [facility] [place] [facility] [address] [id number] [place] [address] Oct, [facility] [place] [facility] [address] [id number] [place] [address] Sep, [facility] [place] [facility] [address] [id number] [place] [address] Aug, [facility] [place] [facility] [address] [facility] [id number] [place] [address] Dec, [facility] [place] [facility] [address] [facility] [id number] [place] [address] Oct, [facility] [address] [facility] [id number] [place] [address] Oct, [facility] [address] [facility] [id number] [place] [address] Oct, [facility] [address] [facility] [id number] [place] [address] Jun, [facility] [address] [facility] [id number] [place] [address] Jun, [facility] [address] [facility] [id number] [address] Oct, [facility] [address] [facility] [facility] [id number] [place] [address] Sep, [facility] [id number] [place] [address] Sep, [facility] [address] [id number] [address] Sep, [facility] [id number] [address] Aug, [facility] [address] [id number] [address] Dec, IMMUNIZATIONS No Known Immunizations SOCIAL HISTORY Never Assessed REASON FOR VISIT deferred lab PLAN OF CARE VITAL SIGNS MEDICATIONS Unknown [...]
--- OUTSIDE RECORDS SUMMARY | 2019-01-13 22:07 | XMS REPORT ---
Author Author PADMINI LUJAN [facility] Address [address] [place] [address] Care Team Providers Care Pole Inspector Name Role Phone PADMINI LUJAN Unavailable PROBLEMS Type Condition ICD9-CM Code [id number] Code Onset Dates Condition Status SNOMED Code Problem BMI 35.0-35.9,adult Z68.35 Active 711449168 Problem Tobacco use Z72.0 Active 156999602 Problem Chronic fatigue R53.82 Active 10225065 Problem Prediabetes R73.03 Active 440797822 Problem Chronic reflux esophagitis K21.0 Active 343040338 Problem Carpal tunnel syndrome of right wrist G56.01 Active 71599828 Problem PTSD (post-traumatic stress disorder) F43.10 Active 45808461 Problem 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 25344635 Problem Elevated lymphocytes D72.820 Active 82459957 Problem WILMA (generalized anxiety disorder) F41.1 Active 80988348 Problem Severe episode of recurrent major depressive disorder, without psychotic features F33.2 Active 33509155 ALLERGIES No Information ENCOUNTERS Encounter Location Date Diagnosis [facility] [id number] [place] [address] 68011- 2835 Apr, [facility] [id number] [place] [address] 53650- 4563 March, [facility] [id number] [place] [address] 86730- 9719 March, [facility] [address] [address]86- 1122 Jan, Severe episode of recurrent major depressive disorder, without psychotic features F33.2 ; WILMA (generalized anxiety disorder) F41.1 and PTSD (post-traumatic stress disorder) F43.10 [facility] [address] [address]- 2006 Jan, Carpal tunnel syndrome of right wrist G56.01 [facility] [id number] [place] [address] Jan, Severe episode of recurrent major depressive disorder, without psychotic features F33.2 ; WILMA (generalized anxiety disorder) F41.1 and PTSD (post-traumatic stress disorder) F43.10 [facility] [id number] [place] [address]- [address] Dec, Severe episode of recurrent major depressive disorder, without psychotic features F33.2 ; WILMA (generalized anxiety disorder) F41.1 and PTSD (post-traumatic stress disorder) F43.10 [facility] [id number] [place] [address]- [address]257 Dec, Severe episode of recurrent major depressive disorder, without psychotic features F33.2 ; WILMA (generalized anxiety disorder) F41.1 and PTSD (post-traumatic stress disorder) F43.10 [facility] [id number] [place] [address] 31172- 9919 Dec, Severe episode of recurrent major depressive disorder, without psychotic features F33.2 ; WILMA (generalized anxiety disorder) F41.1 and PTSD (post-traumatic stress disorder) F43.10 [facility] [id number] [place] [address] 27192- 6344 Dec, Severe episode of recurrent major depressive disorder, without psychotic features F33.2 [facility] [id number] [place] [address]- 5664 Dec, Severe episode of recurrent major depressive disorder, without 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1 [facility] [id number] [place] [address] 28558- 7978 14 Dec, 2017 Severe episode of recurrent major depressive disorder, without psychotic features F33.2 and Anxiety state, unspecified F41.1 [facility] [id number] [place] [address] 40014- 7395 Nov, Depression, major, recurrent, moderate F33.1 and Anxiety state, unspecified F41.1 [facility] [id number] [place] [address] 67517- 7413 Nov, Depression, major, recurrent, moderate F33.1 and Anxiety state, unspecified F41.1 [facility] [id number] [place] [address] 53811- 1800 Oct, Depression, major, recurrent, moderate F33.1 and Anxiety state, unspecified F41.1 [facility] [id number] [place] [address] 00294- 2115 Oct, Depression, major, recurrent, moderate F33.1 and Post- cholecystectomy syndrome K91.5 [facility] [id number] [place] [address] 54853- 2358 Oct, Depression, major, recurrent, moderate F33.1 and Anxiety state, unspecified F41.1 [facility] [id number] [place] [address] 04963- 1372 30 Sep, 2017 Depression, major, recurrent, moderate F33.1 and Anxiety state, unspecified F41.1 [facility] [id number] [place] [address] 34786- 5919 16 Sep, 2017 Depression, major, recurrent, moderate F33.1 and Anxiety state, unspecified F41.1 [facility] [id number] [place] [address] 17697- 9655 Sep, Depression, major, recurrent, moderate F33.1 and Anxiety state, unspecified F41.1 [facility] [id number] [place] [address]- 5547 Sep, Diarrhea, unspecified type R19.7 [facility] [id number] [place] [address] 08268- 6654 Aug, Depression, major, recurrent, moderate F33.1 and Anxiety state, unspecified F41.1 [facility] [id number] [place] [address] 80938- 9568 Aug, Depression, major, recurrent, moderate F33.1 and Anxiety state, unspecified F41.1 [facility] [id number] [place] [address] 16875- 3548 Jul, Depression, major, recurrent, moderate F33.1 and Anxiety state, unspecified F41.1 [facility] [id number] [place] [address] 98957- 4728 Jun, Depression, major, recurrent, moderate F33.1 and Anxiety state, unspecified F41.1 [facility] [id number] [place] [address] 48673- 6354 Jun, Generalized abdominal pain R10.84 ; Diarrhea, unspecified type R19.7 ; Acute cystitis without hematuria N30.00 ; Abdominal bloating R14.0 and Elevated blood pressure reading R03.0 [facility] [id number] [place] [address] 97833- 9914 Jun, Depression, major, recurrent, moderate F33.1 and Anxiety state, unspecified F41.1 [place] [id number] [place] [address]- 9685 May, Depression, major, recurrent, moderate F33.1 and Anxiety state, unspecified F41.1 [place] [id number] [place] [address] 28160- 4775 May, Elevated lymphocytes D72.820 [facility] [id number] [place] [address] 60547- 2084 May, Elevated lymphocytes D72.820 [facility] [id number] [place] [address] 35707- 9014 May, BMI 35.0-35.9,adult Z68.35 ; Other fatigue R53.83 ; Pelvic pain R10.2 ; Tobacco use Z72.0 and Chronic reflux esophagitis K21.0 [facility] [id number] [place] [address] 53704- 1321 Apr, [facility] [address] 95349- 0642 Apr, Depression, major, recurrent, moderate F33.1 and Anxiety state, unspecified F41.1 [facility] [address] 87617- 7387 Apr, Depression, major, recurrent, moderate F33.1 and Anxiety state, unspecified F41.1 [facility] [id number] [place] [address] 51568- 6677 Apr, [facility] [id number] [place] [address] 08839- 3016 March, Major depressive disorder, recurrent episode, mild F33.0 and Anxiety state, unspecified F41.1 [facility] [id number] [place] [address] 00485 -3788 March, Sore throat J02.9 and Submandibular lymphadenopathy R59.0 [facility] [id number] [place] [address] 28936- 2198 Dec, Major depressive disorder, recurrent episode, mild F33.0 and Anxiety state, unspecified F41.1 [facility] [id number] [place] [address] 04442- 9642 Dec, Major depressive disorder, recurrent episode, mild F33.0 and Anxiety state, unspecified F41.1 [facility] [address] [address]- 3196 Dec, Major depressive disorder, recurrent episode, mild F33.0 and Anxiety state, unspecified F41.1 [facility] [address] [address]- 3074 Sep, Major depressive disorder, recurrent episode, mild F33.0 and Anxiety state, unspecified F41.1 [facility] [address] [address]- 0420 Sep, Major depressive disorder, recurrent episode, moderate F33.1 and Anxiety state, unspecified F41.1 [facility] [address] [address]- 3723 Aug, Major depressive disorder, recurrent episode, moderate F33.1 and Anxiety state, unspecified F41.1 [facility] [address] [address]- 2714 Aug, Major depressive disorder, recurrent episode, moderate F33.1 and Anxiety state, unspecified F41.1 [facility] [id number] [place] [address] 59761- 4034 Jul, Major depressive disorder, recurrent episode, moderate F33.1 and Anxiety state, unspecified F41.1 [facility] [address] [address]- 9854 Jul, Major depressive disorder, recurrent episode, moderate F33.1 and Anxiety state, unspecified F41.1 [facility] [address] [address]- 6769 Jun, Major depressive disorder, recurrent episode, moderate F33.1 and Anxiety state, unspecified F41.1 [facility] [address] [address]- 3780 Jun, Major depressive disorder, recurrent episode, moderate F33.1 and Anxiety state, unspecified F41.1 [facility] [id number] [place] [address] 93967- 1473 May, Major depressive disorder, recurrent episode, moderate F33.1 and Anxiety state, unspecified F41.1 [facility] [id number] [place] [address] 43644- 5565 Apr, Major depressive disorder, recurrent episode, moderate F33.1 and Anxiety state, unspecified F41.1 [facility] [id number] [place] [address] 61698- 1692 Apr, Major depressive disorder, recurrent episode, moderate F33.1 and Anxiety state, unspecified F41.1 [facility] [address] 97693- 4605 Dec, Major depressive disorder, recurrent episode, moderate F33.1 and Anxiety state, unspecified F41.1 [facility] [id number] [place] [address] 87271- 3555 Dec, Major depressive disorder, recurrent episode, moderate F33.1 and Anxiety state, unspecified F41.1 [facility] [id number] [place] [address] 15307 -3149 Dec, Pharyngitis J02.9 and Acute frontal sinusitis J01.10 [facility] [id number] [place] [address] 48958- 5955 Nov, Bilateral occipital neuralgia M54.81 and Neck muscle spasm M62.838 [facility] [id number] [place] [address] 22170- 2554 Nov, Major depressive disorder, recurrent episode, moderate F33.1 and Anxiety state, unspecified F41.1 [facility] [id number] [place] [address] 61535- 4759 Sep, Major depressive disorder, recurrent episode, moderate F33.1 and Anxiety state, unspecified F41.1 [facility] [id number] [place] [address] 47500- 6538 Aug, Major depressive disorder, recurrent episode, moderate F33.1 and Anxiety state, unspecified F41.1 [facility] [id number] [place] [address] 66658- 6894 Jul, Abdominal pain 789.00 ; Hematochezia 578.1 and Weight loss 783.21 [facility] [id number] [place] [address] 09586- 6330 May, [facility] [address] 56453- 5578 March, [facility] [id number] [place] [address] 06486- 0638 March, [facility] [id number] [place] [address] 28076- 4437 Jan, [facility] [id number] [place] [address] 12728- 7855 Jan, [facility] [id number] [place] [address] 24867- 2268 Dec, [facility] [id number] [place] [address] 70193- 7658 Dec, [facility] [id number] [place] [address] 07639- 9094 Dec, [facility] [id number] [place] [address] 97063- 2976 Dec, [facility] [id number] [place] [address] 46593- 4854 Dec, [facility] [id number] [place] [address] 313093- 4171 Dec, [facility] [id number] [place] [address] 32036- 6786 Jul, [facility] [id number] [place] [address] 08645- 5237 Jul, [facility] [place] [facility] [address] [id number] [place] [address]- 8218 11 Jul, 2013 [facility] [place] [facility] [address] [id number] [place] [address]- 1762 11 Jul, 2013 [facility] [place] [facility] [address] [id number] [place] [address]- 5288 Jul, 2013 [facility] [place] [facility] [address] [id number] [place] [address]- 5349 Jul, 2013 [facility] [place] [facility] [address] [id number] [place] [address]- 1603 Jul, 2013 [facility] [place] [facility] [address] [id number] [place] [address]- 6032 Jul, 2013 [facility] [place] [facility] [address] [id number] [place] [address]- 5808 Jul, 2013 [facility] [place] [facility] [address] [id number] [place] [address]- 8665 Jul, 2013 [facility] [place] [facility] [address] [id number] [place] [address]- 2350 Jul, 2013 [facility] [place] [facility] [address] [id number] [place] [address]- 1399 Jul, 2013 [facility] [place] [facility] [address] [id number] [place] [address]- 2511 May, [facility] [place] [facility] [address] [id number] [place] [address]- 1129 May, [facility] [place] [facility] [address] [id number] [place] [address]- 4514 Apr, [facility] [place] [facility] [address] [id number] [place] [address]- 9015 Apr, [facility] [place] [facility] [address] [id number] [place] [address]- 9800 Apr, [facility] [place] [facility] [address] [id number] [place] [address]- 8898 Apr, [facility] [place] [facility] [address] [id number] [place] [address]- 6696 March, [facility] [place] [facility] [address] [id number] [place] [address]- 5150 March, [facility] [place] [facility] [address] [id number] [place] [address]- 7363 Jan, [facility] [place] [facility] [address] [id number] [place] [address]- 4607 Jan, [facility] [place] [facility] [address] [id number] [place] [address]- 7193 Jan, [facility] [place] [facility] [address] [id number] [place] [address]- 6511 Jan, [facility] [place] [facility] [address] [id number] [place] [address]- 6949 Dec, [facility] [place] [facility] [address] [id number] [place] [address]- 0099 25 Dec, 2013 [facility] [place] [facility] [address] [id number] [place] [address]- 1606 18 Dec, 2013 [facility] [place] [facility] [address] [id number] [place] [address]- 2031 18 Dec, 2013 [facility] [place] [facility] [address] [id number] [place] [address]- 9231 15 Dec, 2013 [facility] [place] [facility] [address] [id number] [place] [address]- 6517 14 Dec, 2013 [facility] [place] [facility] [address] [id number] [place] [address]- 9216 13 Dec, 2013 [facility] [place] [facility] [address] [id number] [place] [address]- 1948 13 Dec, 2013 [facility] [place] [facility] [address] [id number] [place] [address]- 9210 12 Dec, 2013 [facility] [place] [facility] [address] [id number] [place] [address]- 6930 Dec, [facility] [place] [facility] [address] [id number] [place] [address]- 0495 Dec, [facility] [place] [facility] [address] [id number] [place] [address]- 8225 Dec, [facility] [place] [facility] [address] [id number] [place] [address]- 2645 Dec, [facility] [place] [facility] [address] [id number] [place] [address]- 9634 Dec, [facility] [place] [facility] [address] [id number] [place] [address]- 6710 Dec, [facility] [place] [facility] [address] [id number] [place] [address]- 6002 Dec, [facility] [place] [facility] [address] [id number] [place] [address]- 4327 Dec, [facility] [place] [facility] [address] [id number] [place] [address]- 5849 Dec, [facility] [place] [facility] [address] [id number] [place] [address]- 3192 Nov, [facility] [place] [facility] [address] [id number] [place] [address]- 4912 Nov, [facility] [place] [facility] [address] [id number] [place] [address]- 5359 Nov, [facility] [place] [facility] [address] [id number] [place] [address]- 1261 Nov, [facility] [place] [facility] [address] [id number] [place] [address]- 1851 Nov, [facility] [place] [facility] [address] [id number] [place] [address]- 5505 Nov, [facility] [place] [facility] [address] [id number] [place] [address]- 4796 Nov, [facility] [place] [facility] [address] [id number] [place] [address]- 6678 Nov, [facility] [place] [facility] [address] [id number] [place] [address]- 9740 Oct, [facility] [place] [facility] [address] [id number] [place] [address]- 8963 Oct, [facility] [place] [facility] [address] [id number] [place] [address]- 2241 Oct, [facility] [place] [facility] [address] [id number] [place] [address]- 3760 Oct, [facility] [place] [facility] [address] [id number] [place] [address]- 7625 Oct, [facility] [place] [facility] [address] [id number] [place] [address]- 3831 Oct, [facility] [place] [facility] [address] [id number], [place] [address]- 5337 Sep, [facility] [place] [facility] [address] [id number] [place] [address]- 8455 Sep, [facility] [place] [facility] [address] [id number], [place] [address]- 9167 Sep, [facility] [place] [facility] [address] [id number], [place] [address]- 5238 Sep, [facility] [place] [facility] [address] [id number], [place] [address]- 4434 Aug, [facility] [place] [facility] [address] [id number] [place] [address]- 6026 Aug, [facility] [place] [facility] [address] [id number], [place] [address]- 4521 Aug, [facility] [place] [facility] [address] [id number], [place] [address]- 3817 Aug, [facility] [place] [facility] [address] [id number] [place] [address]- 9370 Jul, [facility] [address] [id number] [place] [address]- 5357 05 Jul, 2013 [facility] [address] [id number] [place] [address]- 6274 Jun, [facility] [address] [id number] [place] [address]- 9863 Jun, [facility] [address] [id number] [place] [address]- 1290 28 Apr, 2013 [facility] [address] [id number] [place] [address]- 7955 Apr, [facility] [address] [id number] [place] [address]- 3252 15 Apr, 2013 [facility] [address] [id number] [place] [address]- 5222 Apr, [facility] [address] [id number] [place] [address]- 1953 March, [facility] [address] [id number] [place] [address]- 4336 March, [facility] [address] [id number] [place] [address]- 2178 March, [facility] [address] [id number] [place] [address]- 3925 Jan, [facility] [address] [id number] [place] [address]- 1617 Jan, [facility] [address] [id number] [place] [address]- 8951 Dec, [facility] [address] [id number] [place] [address]- 2546 Dec, [facility] [address] [id number] [place] [address]- 9319 Dec, [facility] [place] [facility] [address] [id number] [place] [address] Dec, [facility] [place] [facility] [address] [id number] [place] [address] Dec, [facility] [place] [facility] [address] [id number] [place] [address] Dec, [facility] [place] [facility] [address] [id number] [place] [address] Nov, [facility] [address] [id number] [place] [address] Nov, [facility] [place] [facility] [address] [id number] [place] [address] Oct, [facility] [place] [facility] [address] [id number] [place] [address] Oct, [facility] [address] [id number] [place] [address] Oct, [facility] [place] [facility] [address] [id number] [place] [address] Oct, [facility] [place] [facility] [address] [id number] [place] [address] Oct, [facility] [place] [facility] [address] [id number] [place] [address] Oct, [facility] [place] [facility] [address] [id number] [place] [address] Oct, [facility] [place] [facility] [address] [id number] [place] [address] Oct, [facility] [place] [facility] [address] [id number] [place] [address] Oct, [facility] [place] [facility] [address] [id number] [place] [address] Oct, [facility] [place] [facility] [address] [id number] [place] [address] 13 Sep, 2012 [facility] [place] [facility] [address] [id number] [place] [address] Sep, [facility] [place] [facility] [address] [id number] [place] [address] Sep, [facility] [place] [facility] [address] [id number] [place] [address] Sep, [facility] [place] [facility] [address] [id number] [place] [address] Aug, [facility] [place] [facility] [id number] [place] [address], [place] [address] Aug, [facility] [place] [facility] [address] [id number] [place] [address] Aug, [facility] [place] [facility] [id number] [place] [address] Jul, [facility] [place] [facility] [address] [id number] [place] [address] Jun, [facility] [place] [facility] [address] [id number] [place] [address] Jun, [facility] [place] [facility] [address] [id number] [place] [address] May, [facility] [place] [facility] [address] [id number] [place] [address] Apr, [facility] [place] [facility] [address] [id number], [place] [address] March, [facility] [place] [facility] [address] [id number] [place] [id number] Jan, [facility] [place] [facility] [address] [id number] [place] [address] 29 Dec, 2011 [facility] [place] [facility] [address] [facility] [id number], [place] [address] 15 Dec, 2011 [facility] [place] [facility] [address] [id number] [place] [address] Nov, [facility] [place] [facility] [address] [id number] [place] [address] Oct, [facility] [place] [facility] [address] [id number] [place] [address] Oct, [facility] [place] [facility] [address] [id number] [place] [address] Sep, [facility] [place] [facility] [address] [id number] [place] [address] Aug, [facility] [place] [facility] [address] [id number] [place] [address] Dec, [facility] [place] [facility] [address] [id number] [place] [address] Oct, [facility] [place] [facility] [address] [id number] [place] [address] Oct, [facility] [place] [facility] [address] [id number] [place] [address] Oct, [facility] [place] [facility] [address] [id number] [place] [address] Jun, [facility] [place] [facility] [address] [id number] [place] [address] Jun, [facility] [place] [facility] [address] [id number] [place] [address] Oct, [facility] [place] [facility] [address] [id number] [place] [address] Sep, [facility] [place] [facility] [address] [id number] [place] [address] Sep, [facility] [place] [facility] [address] [id number] [place] [address] Sep, [facility] [place] [facility] [address] [id number] [place] [address] Aug, [facility] [address] [facility] [id number] [place] [address] Dec, IMMUNIZATIONS No Known Immunizations SOCIAL HISTORY Never Assessed REASON FOR VISIT Follow-up Depression/Anxiety PLAN OF CARE Activity Details Follow Up 2 Weeks Reason: Follow-up VITAL SIGNS MEDICATIONS Unknown Medications RESULTS No Results PROCEDURES Procedure Date Ordered Result Body Site Psychotherapy, patient &/family, 45 minutes, established patient Jun 29, 2017 INSTRUCTIONS MEDICATIONS ADMINISTERED No Known [...]
--- OUTSIDE RECORDS SUMMARY | 2019-01-13 22:07 | XMS REPORT ---
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 Name Role Phone GRETCHEN ROTHMAN Unavailable PROBLEMS Type Condition ICD9-CM Code UUY06-VM Code Onset Dates Condition Status SNOMED Code Problem BMI 35.0-35.9,adult Z68.35 Active 019145932 Problem Tobacco use Z72.0 Active 511123884 Problem Chronic fatigue R53.82 Active 04914359 Problem Prediabetes R73.03 Active 809123663 Problem Chronic reflux esophagitis K21.0 Active 869567841 Problem Carpal tunnel syndrome of right wrist G56.01 Active 32436158 Problem PTSD (post-traumatic stress disorder) F43.10 Active 29118966 Problem 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 62996276 Problem Elevated lymphocytes D72.820 Active 64921494 Problem WILMA (generalized anxiety disorder) F41.1 Active 21428903 Problem Severe episode of recurrent major depressive disorder, without psychotic features F33.2 Active 16949424 ALLERGIES Substance Reaction Event Type Date Status Latex rash Drug Allergy Oct, Active Wellbutrin suicidel thoughts Drug Allergy Oct, Active Citalopram 20 Mg Tablet Fatigue, "foggy", decreased sex drive Non Drug Allergy Oct, Active ENCOUNTERS Encounter Location Date Diagnosis [facility] [address] [facility] [id number] [address] May, [facility] [id number] [address] Apr, [facility] [id number] [address] Apr, [facility] [address] [id number] [address] March, Severe episode of recurrent major depressive disorder, without psychotic features F33.2 ; WILMA (generalized anxiety disorder) F41.1 and PTSD (post-traumatic stress disorder) F43.10 [facility] [id number] [place] [address] 35704- 4402 March, Severe episode of recurrent major depressive disorder, without psychotic features F33.2 ; WILMA (generalized anxiety disorder) F41.1 and PTSD (post-traumatic stress disorder) F43.10 [place] [id number] [place] [address] 95422- 1212 March, [facility] [id number] [place] [address] 16956- 4946 Jan, Severe episode of recurrent major depressive disorder, without psychotic features F33.2 ; WILMA (generalized anxiety disorder) F41.1 and PTSD (post-traumatic stress disorder) F43.10 [place] [id number] [place] [address] 49725- 6647 Jan, Carpal tunnel syndrome of right wrist G56.01 [place] [id number] [place] [address] 22549- 7120 Jan, Severe episode of recurrent major depressive disorder, without psychotic features F33.2 ; WILMA (generalized anxiety disorder) F41.1 and PTSD (post-traumatic stress disorder) F43.10 [address] [address] [address] Dec, Severe episode of recurrent major depressive disorder, without psychotic features F33.2 ; WILMA (generalized anxiety disorder) F41.1 and PTSD (post-traumatic stress disorder) F43.10 [address] [address] [address] [address] Dec, Severe episode of recurrent major depressive disorder, without psychotic features F33.2 ; WILMA (generalized anxiety disorder) F41.1 and PTSD (post-traumatic stress disorder) F43.10 [address] [address] [address] Dec, Severe episode of recurrent major depressive disorder, without psychotic features F33.2 ; WILMA (generalized anxiety disorder) F41.1 and PTSD (post-traumatic stress disorder) F43.10 [place] [id number] [place] [address] Dec, Severe episode of recurrent major depressive disorder, without psychotic features F33.2 [address] [id number] [place] [address] 59738- 2286 Dec, Severe episode of recurrent major depressive disorder, without psychotic features F33.2 ; WILMA (generalized anxiety disorder) F41.1 and PTSD (post-traumatic stress disorder) F43.10 [place] [id number] [place] [address] Dec, Severe episode of recurrent major depressive disorder, without psychotic features F33.2 ; WILMA (generalized anxiety disorder) F41.1 and PTSD (post-traumatic stress disorder) F43.10 [address] [id number] [place] [address] 26595- 8703 Dec, Severe episode of recurrent major depressive disorder, without psychotic features F33.2 and Anxiety state, unspecified F41.1 [place] [id number] [place] [address] 22056- 4117 Dec, Severe episode of recurrent major depressive disorder, without psychotic features F33.2 and Anxiety state, unspecified F41.1 [place] [id number] [place] [address] 37509- 3647 Nov, Depression, major, recurrent, moderate F33.1 and Anxiety state, unspecified F41.1 [address] [id number] [place] [address] 34514- 4685 Nov, Depression, major, recurrent, moderate F33.1 and Anxiety state, unspecified F41.1 [place] [id number] [place] [address] 98034- 2944 Oct, Depression, major, recurrent, moderate F33.1 and Anxiety state, unspecified F41.1 [address] [id number] [place] [address] 07 Oct, 2017 Depression, major, recurrent, moderate F33.1 and Post- cholecystectomy syndrome K91.5 [address] [id number] [place] 8762 Oct, Depression, major, recurrent, moderate F33.1 and Anxiety state, unspecified F41.1 [place] [facility] [id number] [place] [address] Sep, Depression, major, recurrent, moderate F33.1 and Anxiety state, unspecified F41.1 [address] [id number] [place] [address]40 Sep, Depression, major, recurrent, moderate F33.1 and Anxiety state, unspecified F41.1 [address] [address] [address] Sep, Depression, major, recurrent, moderate F33.1 and Anxiety state, unspecified F41.1 [place] [id number] [place] [address] 14754- 6108 Sep, Diarrhea, unspecified type R19.7 [place] [id number] [place] [address] Aug, Depression, major, recurrent, moderate F33.1 and Anxiety state, unspecified F41.1 [facility] [facility] [id number] [place] [address] Aug, Depression, major, recurrent, moderate F33.1 and Anxiety state, unspecified F41.1 [facility] [facility] [id number] [place] [address] Jul, Depression, major, recurrent, moderate F33.1 and Anxiety state, unspecified F41.1 [facility] [id number] [place] [address] 50527- 2340 Jun, Depression, major, recurrent, moderate F33.1 and Anxiety state, unspecified F41.1 [address] [address] [place] [address] 77717- 3170 Jun, Generalized abdominal pain R10.84 ; Diarrhea, unspecified type R19.7 ; Acute cystitis without hematuria N30.00 ; Abdominal bloating R14.0 and Elevated blood pressure reading R03.0 [place] [id number] [place] [address] Jun, Depression, major, recurrent, moderate F33.1 and Anxiety state, unspecified F41.1 [place] [id number] [place] May, Depression, major, recurrent, moderate F33.1 and Anxiety state, unspecified F41.1 [place] [id number] [place] [address] 19513- 9026 May, Elevated lymphocytes D72.820 [place] [id number] [place] [address] 53177- 8292 May, Elevated lymphocytes D72.820 [place] [id number] [place] [address] [address] May, BMI 35.0-35.9,adult Z68.35 ; Other fatigue R53.83 ; Pelvic pain R10.2 ; Tobacco use Z72.0 and Chronic reflux esophagitis K21.0 [place] [id number] [place] [address] 19540- 9373 Apr, [place] [id number] [place] [address] 79138- 0680 Apr, Depression, major, recurrent, moderate F33.1 and Anxiety state, unspecified F41.1 [place] [address] [place] [address] [address] Apr, Depression, major, recurrent, moderate F33.1 and Anxiety state, unspecified F41.1 [id number] [address]- 94[address] Apr, [place] [id number] [place] [address] 48331- 0935 March, Major depressive disorder, recurrent episode, mild F33.0 and Anxiety state, unspecified F41.[address] [facility] [id number] [place] [address] 69726 -3210 March, Sore throat J02.9 and Submandibular lymphadenopathy R59.0 [place] [id number] [place] [address] 40807- 0951 Dec, Major depressive disorder, recurrent episode, mild F33.0 and Anxiety state, unspecified F41.1 [place] [address], [place] [address]- 6300 Dec, Major depressive disorder, recurrent episode, mild F33.0 and Anxiety state, unspecified F41.1 [id number] [place] [address] 66231- 8882 Dec, Major depressive disorder, recurrent episode, mild F33.0 and Anxiety state, unspecified F41.1 [address] [place] [address] 84834- 7588 Sep, Major depressive disorder, recurrent episode, mild F33.0 and Anxiety state, unspecified F41.1 [place] [address], [place] [address] Sep, Major depressive disorder, recurrent episode, moderate F33.1 and Anxiety state, unspecified F41.1 [address] [address] [place] [address] 89432- 9118 Aug, Major depressive disorder, recurrent episode, moderate F33.1 and Anxiety state, unspecified F41.1 [address] [address], [place] [address]- 6338 Aug, Major depressive disorder, recurrent episode, moderate F33.1 and Anxiety state, unspecified F41.1 [address] [address], [place] [address]- 8692 Jul, Major depressive disorder, recurrent episode, moderate F33.1 and Anxiety state, unspecified F41.1 [address], [place] [address]- 4636 Jul, Major depressive disorder, recurrent episode, moderate F33.1 and Anxiety state, unspecified F41.1 [address], [place] [address]- 6519 Jun, Major depressive disorder, recurrent episode, moderate F33.1 and Anxiety state, unspecified F41.1 [address], [place] [address]- 2562 Jun, Major depressive disorder, recurrent episode, moderate F33.1 and Anxiety state, unspecified F41.1 [place], [place] [address]- 7200 May, Major depressive disorder, recurrent episode, moderate F33.1 and Anxiety state, unspecified F41.1 [address] [address], [place] [address]- 6996 Apr, Major depressive disorder, recurrent episode, moderate F33.1 and Anxiety state, unspecified F41.1 [address], [place] [address]- 0609 Apr, Major depressive disorder, recurrent episode, moderate F33.1 and Anxiety state, unspecified F41.1 [address], [place] [address]- 0780 Dec, Major depressive disorder, recurrent episode, moderate F33.1 and Anxiety state, unspecified F41.1 [address] [address], [place] [address]- 6166 Dec, Major depressive disorder, recurrent episode, moderate F33.1 and Anxiety state, unspecified F41.1 [facility] [address] [place] [address] 01033 -2408 Dec, Pharyngitis J02.9 and Acute frontal sinusitis J01.10 [facility] [id number] [place] [address] 50885- 1721 Nov, Bilateral occipital neuralgia M54.81 and Neck muscle spasm M62.838 [facility] [id number] [place] [address] 19847- 8193 Nov, Major depressive disorder, recurrent episode, moderate F33.1 and Anxiety state, unspecified F41.1 [place] [id number] [place] [address] 45109- 5616 Sep, Major depressive disorder, recurrent episode, moderate F33.1 and Anxiety state, unspecified F41.1 [facility] [id number] [place] [address] 36184- 9439 Aug, Major depressive disorder, recurrent episode, moderate F33.1 and Anxiety state, unspecified F41.1 [facility] [id number] [place] [address] 79137- 0353 Jul, Abdominal pain 789.00 ; Hematochezia 578.1 and Weight loss 783.21 [facility] [id number] [place] [address] 56213- 5753 May, [facility] [id number] [place] [address] 23523- 9425 March, [facility] [id number] [place] [address] 31742- 6775 March, [facility] [id number] [place] [address] 96346- 7315 Jan, [facility] [id number] [place] [address] 61674- 9377 Jan, [facility] [address] [place] [address] 44539- 9675 Dec, [facility] [place] [facility] [address] [id number] [place] [address]- 1830 Dec, 2014 [facility] [place] [facility] [address] [id number] [place] [address]- 6086 Dec, 2014 [facility] [place] [facility] [address] [id number] [place] [address]- 6826 Dec, 2014 [facility] [place] [facility] [address] [id number] [place] [address] 2547 Dec, 2014 [facility] [place] [facility] [address] [id number] [place] [address] 2544 Dec, 2014 [facility] [place] [facility] [address] [id number] [place] [address]- 2207 Jul, 2013 [facility] [place] [facility] [address] [id number] [place] [address]- 0061 Jul, 2013 [facility] [place] [facility] [address] [id number] [place] [address]- 2547 Jul, 2013 [facility] [place] [facility] [address] [id number] [place] [address] 2549 Jul, 2013 [facility] [place] [facility] [address] [id number] [place] [address] 2541 10 Jul, 2013 [facility] [place] [facility] [address] [id number] [place] [address] 2548 10 Jul, 2013 [facility] [place] [facility] [address] [id number] [place] [address] 254 09 Sep, 2013 [facility] [place] [facility] [address] [id number] [place] [address] 2546 09 Sep, 2013 [facility] [place] [facility] [address] [id number] [place] [address] 2542 Sep, 2013 [facility] [place] [facility] [address] [id number] [place] [address] 2543 09 Sep, 2013 [facility] [place] [facility] [address] [id number] [place] [address]- 5745 Jul, [facility] [place] [facility] [address] [id number] [place] [address]- 6340 Jul, [facility] [place] [facility] [address] [id number] [place] [address]- 2564 May, [facility] [place] [facility] [address] [id number] [place] [address]- 0974 May, [facility] [place] [facility] [address] [id number] [place] [address]- 4394 Apr, [facility] [place] [facility] [address] [id number] [place] [address]- 8124 Apr, [facility] [place] [facility] [address] [id number] [place] [address]- 1126 Apr, [facility] [place] [facility] [address] [id number] [place] [address]- 8403 Apr, [facility] [place] [facility] [address] [id number] [place] [address]- 8761 March, [facility] [place] [facility] [address] [id number] [place] [address]- 2820 March, [facility] [place] [facility] [address] [id number] [place] [address]- 0080 Jan, [facility] [place] [facility] [address] [id number] [place] [address]- 6204 Jan, [facility] [place] [facility] [address] [id number] [place] [address]- 5826 Jan, [facility] [place] [facility] [address] [id number] [place] [address]- 6164 Jan, [facility] [place] [facility] [address] [id number] [place] [address]- 2276 Dec, [facility] [place] [facility] [address] [id number] [place] 1854 Dec, [facility] [place] [facility] [address] [id number] [place] [address]- 7211 18 Dec, 2013 [facility] [place] [facility] [address] [id number] [place] [address]- 0040 18 Dec, 2013 [facility] [place] [facility] [address] [id number] [place] [address]- 7676 15 Dec, 2013 [facility] [place] [facility] [address] [id number] [place] [address]- 7735 14 Dec, 2013 [facility] [place] [facility] [address] [id number] [place] [address]- 8557 13 Dec, 2013 [facility] [place] [facility] [address] [id number] [place] [address]- 2445 13 Dec, 2013 [facility] [place] [facility] [address] [id number] [place] [address]- 2595 12 Dec, 2013 [facility] [place] [facility] [address] [id number] [place] [address]- 9342 12 Dec, 2013 [facility] [place] [facility] [address] [id number] [place] [address]- 0187 05 Dec, 2013 [facility] [place] [facility] [address] [id number] [place] [address]- 1006 05 Dec, 2013 [facility] [place] [facility] [address] [id number] [place] [address]- 4854 Dec, [facility] [place] [facility] [address] [id number] [place] [address]- 9994 Dec, [facility] [place] [facility] [address] [id number] [place] [address]- 6936 Dec, [facility] [place] [facility] [address] [id number] [place] [address]- 3897 Dec, [facility] [place] [facility] [address] [id number] [place] [address]- 0878 06 Dec, 2013 [facility] [place] [facility] [address] [id number] [place] [address]- 5776 Dec, [facility] [address] [id number] [place] [address]- 2837 Nov, [facility] [place] [facility] [address] [id number] [place] [address]- 7586 Nov, [facility] [place] [facility] [address] [id number] [place] [address]- 4223 Nov, [facility] [place] [facility] [address] [id number] [place] [address]- 1544 Nov, [facility] [place] [facility] [address] [id number] [place] [address]- 7454 Nov, [facility] [place] [facility] [address] [id number] [place] [address]- 0204 Nov, [facility] [place] [facility] [address] [id number] [place] [address]- 6397 Nov, [facility] [place] [facility] [address] [id number] [place] [address]- 2781 Nov, [facility] [place] [facility] [address] [id number] [place] [address]- 2818 Oct, [facility] [place] [facility] [address] [id number] [place] [address]- 4355 Oct, [facility] [place] [facility] [address] [id number] [place] [address]- 6992 Oct, [facility] [place] [facility] [address] [id number] [place] [address]- 1085 Oct, [facility] [place] [facility] [address] [id number] [place] [address]- 2164 Oct, [facility] [place] [facility] [address] [id number] [place] [address]- 7965 Oct, [facility] [place] [facility] [address] [id number] [place] [address]- 9830 Sep, [facility] [place] [facility] [address] [id number] [place] [address] 2546 Sep, [facility] [place] [facility] [address] [id number] [place] [address]- 2224 Sep, [facility] [place] [facility] [address] [id number] [place] [address] 2546 Sep, [facility] [place] [facility] [address] [id number] [place] [address]- 2734 Aug, [facility] [place] [facility] [address] [id number] [place] [address]- 3201 Aug, [facility] [place] [facility] [address] [id number] [place] [address]- 7966 Aug, [facility] [place] [facility] [address] [id number] [place] [address]- 3418 Aug, [facility] [place] [facility] [address] [id number] [place] [address]- 6373 Jul, [facility] [place] [facility] [address] [id number] [place] [address]- 2264 Jul, [facility] [place] [facility] [address] [id number] [place] [address]- 3062 Jun, [facility] [place] [facility] [address] [id number] [place] [address]- 1337 Jun, [facility] [place] [facility] [address] [id number] [place] [address]- 7095 Apr, [facility] [place] [facility] [address] [id number] [place] [address]- 2264 Apr, [facility] [place] [facility] [address] [id number] [place] [address]- 1166 Apr, [facility] [place] [facility] [address] [id number] [place] [address]- 0096 14 Apr, 2013 [facility] [place] [facility] [address] [id number] [place] [address]- 8990 March, [facility] [address] [id number] [place] [address]- 7268 March, [facility] [address] [id number] [place] [address]- 3186 March, [facility] [address] [id number] [place] [address]- 7161 Jan, [facility] [address] [id number] [place] [address] Jan, [facility] [address] [id number] [place] [address] Dec, [facility] [address] [id number] [place] [address] Dec, [facility] [address] [id number] [place] [address] Dec, [facility] [address] [id number] [place] [address] Dec, [facility] [address] [id number] [place] [address] Dec, [facility] [address] [id number] [place] [address] Dec, [facility] [address] [id number] [place] [address] Nov, [facility] [place] [facility] [address] [id number] [place] [address] Nov, [facility] [place] [facility] [address] [id number] [place] [address] Oct, [facility] [place] [facility] [address] [id number] [place] [address] Oct, [facility] [place] [facility] [address] [id number] [place] [address] Oct, [facility] [address] [id number] [place] [address] Oct, [facility] [place] [facility] [address] [id number] [place] [address] Oct, [facility] [place] [facility] [address] [id number] [place] [address] Oct, [facility] [place] [facility] [address] [id number] [place] [address] Oct, [facility] [place] [facility] [address] [id number] [place] [address] Oct, [facility] [place] [facility] [address] [id number] [place] [address] Oct, [facility] [place] [facility] [address] [id number] [place] [address] Oct, [facility] [place] [facility] [address] [facility] [id number] [place] [address] Sep, [facility] [place] [facility] [address] [id number] [place] [address] Sep, [facility] [place] [facility] [address] [facility] [id number] [place] [address] Sep, [facility] [place] [facility] [address] [facility] [id number] [place] [address] Sep, [facility] [place] [facility] [address] [facility] [id number] [place] [address] Aug, [facility] [place] [facility] [address] [id number], [place] [address] Aug, [facility] [place] [facility] [address] [id number] [place] [address] Aug, [facility] [place] [facility] [address] [facility] [id number] [place] [address] Jul, [facility] [place] [facility] [address] [facility] [id number], [place] [address] Jun, [facility] [place] [facility] [address] [id number] [place] [address] Jun, [facility] [place] [facility] [address] [id number] [place] [address] May, [facility] [place] [facility] [address] [id number] [place] [address] Apr, [facility] [place] [facility] [address] [id number] [place] [address] March, [facility] [place] [facility] [address] [id number] [place] [address] Jan, [facility] [place] [facility] [address] [id number] [place] [address] Dec, [facility] [place] [facility] [address] [id number] [place] [address] Dec, [facility] [place] [facility] [address] [id number] [place] [address] Nov, [facility] [place] [facility] [address] [id number] [place] [address] Oct, [facility] [place] [facility] [address] [id number] [place] [address] Oct, [facility] [place] [facility] [address] [id number] [place] [address] Sep, [facility] [place] [facility] [address] [id number], [place] [address] Aug, [facility] [place] [facility] [address] [id number] [place] [address] Dec, [facility] [place] [facility] [address] [id number] [place] [address] Oct, [facility] [place] [facility] [address] [id number] [place] [address] Oct, [facility] [place] [facility] [address] [id number], [place] [address] Oct, [facility] [id number] [address] Jun, [facility] [id number] [address] Jun, [facility] [id number] [address] Oct, [facility] [id number] [address] Sep, [facility] [id number] [address] Sep, [facility] [id number] [address] Sep, [facility] [id number] [address] Aug, [facility] [id number] [address] Dec, IMMUNIZATIONS No Known Immunizations SOCIAL HISTORY Never Assessed REASON FOR VISIT Medication mgmt -Welchol Follow up meds from [facility] and PT kaleb lambert and was told to ask about medications for anxiety and depresion-Arnel GONZALEZ PLAN OF CARE Activity Details Follow Up f/u with [facility], prn Reason: VITAL SIGNS Height 60 in 2017-10-08 Weight 178.3 lbs 2017-10-08 Temperature 98.6 degrees Fahrenheit 2017-10-08 Heart Rate 74 bpm 2017-10-08 Respiratory Rate 18 2017-10-08 BMI 34.82 kg/m2 2017-10-08 Blood pressure systolic 112 mmHg 2017-10-08 Blood pressure diastolic 78 mmHg 2017-10-08 MEDICATIONS Medication Instructions Dosage Frequency Start Date End Date Duration Status Welchol 625 MG Orally 3 times a day 1 tablets with meals 8h Jun, 30 day(s) Active Cymbalta 30 MG Orally Once a day 1 capsule 24h Oct, 30 day(s) Active Fluticasone Propionate 50 MCG/ACT [...]
--- OUTSIDE RECORDS SUMMARY | 2019-01-13 22:08 | XMS REPORT ---
Author Author PADMINI LUJAN [facility] Address [address] [place] [address] Care Team Providers Care Surveying Or Spatial Science Technician Name Role Phone PADMINI LUJAN Unavailable PROBLEMS Type Condition ICD9-CM Code IJO30-NF Code Onset Dates Condition Status SNOMED Code Problem Chronic reflux esophagitis K21.0 Active 813833015 Problem Prediabetes R73.03 Active 479556789 Problem Elevated lymphocytes D72.820 Active 28704616 Problem Tobacco use Z72.0 Active 412703621 Problem Depression, major, recurrent, moderate F33.1 Active 823598153 Problem Anxiety state, unspecified F41.1 Active 040103241 Problem Chronic fatigue R53.82 Active 99229403 Problem BMI 35.0-35.9,adult Z68.35 Active [id number] ALLERGIES No Information SOCIAL HISTORY Never Assessed PLAN OF CARE Activity Details Follow Up 2 Weeks Reason: Follow-up VITAL SIGNS MEDICATIONS Unknown Medications RESULTS No Results PROCEDURES Procedure Date Ordered Result Body Site Psychotherapy, patient &/family, 30 minutes, established patient Dec 30, 2016 IMMUNIZATIONS No Known Immunizations MEDICAL (GENERAL) HISTORY Type Description Date Medical History GERD Surgical History C- section x 2 Surgical History tubal ligation Surgical History hysterectomy 2009 Surgical History cholecystectomy 2014 Surgical History Fibroid removal
--- OUTSIDE RECORDS SUMMARY | 2019-01-13 22:08 | XMS REPORT ---
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 Name Role Phone LE PADMINI Unavailable PROBLEMS Type Condition ICD9-CM Code UWA15-XN Code Onset Dates Condition Status SNOMED Code Problem Chronic reflux esophagitis K21.0 Active 328670081 Problem Chronic fatigue R53.82 Active 17400431 Problem BMI 35.0-35.9,adult Z68.35 Active 868095984 Problem Prediabetes R73.03 Active 624935748 Problem PTSD (post-traumatic stress disorder) F43.10 Active 23710936 Problem WILMA (generalized anxiety disorder) F41.1 Active 25200464 Problem Elevated lymphocytes D72.820 Active 39845825 Problem Tobacco use Z72.0 Active 549534489 Problem Severe episode of recurrent major depressive disorder, without psychotic features F33.2 Active 43655659 Problem 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 65555330 ALLERGIES No Information ENCOUNTERS Encounter Location Date Diagnosis [facility] [id number] [place] [address] 76024- 0732 Apr, [facility] [id number] [place] [address] 58804- 4072 March, [facility] [id number] [place] [address] 54582- 5564 Jan, [facility] [id number] [place] [address] 26278- 6970 Jan, Severe episode of recurrent major depressive disorder, without psychotic features F33.2 ; WILMA (generalized anxiety disorder) F41.1 and PTSD (post-traumatic stress disorder) F43.10 [facility] [address] [place] [address] 25383- 2872 Dec, Severe episode of recurrent major depressive disorder, without psychotic features F33.2 ; WILMA (generalized anxiety disorder) F41.1 and PTSD (post-traumatic stress disorder) F43.10 [facility] [id number] [place] [address] 01466- 5899 Dec, Severe episode of recurrent major depressive disorder, without 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 ; WILMA (generalized anxiety disorder) F41.1 and PTSD (post-traumatic stress disorder) F43.10 [facility] [id number] [place] [address] 09513- 6342 Dec, Severe episode of recurrent major depressive disorder, without psychotic features F33.2 ; WILMA (generalized anxiety disorder) F41.1 and PTSD (post-traumatic stress disorder) F43.10 [facility] [id number] [place] [address] 41778- 5376 Dec, Severe episode of recurrent major depressive disorder, without 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 [facility] [id number] [place] [address] 22674- 9527 Dec, Severe episode of recurrent major depressive disorder, without 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 ; WILMA (generalized anxiety disorder) F41.1 and PTSD (post-traumatic stress disorder) F43.10 [facility] [id number] [place] [address] 07222- 3643 Dec, Severe episode of recurrent major depressive disorder, without psychotic features F33.2 ; WILMA (generalized anxiety disorder) F41.1 and PTSD (post-traumatic stress disorder) F43.10 [facility] [address] [place] [address] 04710- 1097 Dec, Severe episode of recurrent major depressive disorder, without psychotic features F33.2 and Anxiety state, unspecified F41.1 [facility] [id number] [place] [address] 58969- 9632 Dec, Severe episode of recurrent major depressive disorder, without psychotic features F33.2 and Anxiety state, unspecified F41.1 [facility] [id number] [place] [address]- 5790 Nov, Depression, major, recurrent, moderate F33.1 and Anxiety state, unspecified F41.1 [facility] [id number] [place] [address]- 774 Nov, Depression, major, recurrent, moderate F33.1 and Anxiety state, unspecified F41.1 [facility] [address] [place] [address]- 316 Oct, Depression, major, recurrent, moderate F33.1 and Anxiety state, unspecified F41.1 [facility] [id number] [place] [address]- 628 Oct, Depression, major, recurrent, moderate F33.1 and Post- cholecystectomy syndrome K91.5 [facility] [id number] [place] [address]- 4694 Oct, Depression, major, recurrent, moderate F33.1 and Anxiety state, unspecified F41.1 [facility] [id number] [place] [address] 59007- 0793 Sep, Depression, major, recurrent, moderate F33.1 and Anxiety state, unspecified F41.1 [facility] [id number] [place] [address]- 8304 16 Sep, 2017 Depression, major, recurrent, moderate F33.1 and Anxiety state, unspecified F41.1 [facility] [id number] [place] [address]- 1759 09 Sep, 2017 Depression, major, recurrent, moderate F33.1 and Anxiety state, unspecified F41.1 [facility] [address] [place] [address]- 1254 08 Sep, 2017 Diarrhea, unspecified type R19.7 [facility] [id number] [place] [address]- 6228 Aug, Depression, major, recurrent, moderate F33.1 and Anxiety state, unspecified F41.1 [facility] [address] [place] [address] 08456- 2275 Aug, Depression, major, recurrent, moderate F33.1 and Anxiety state, unspecified F41.1 [facility] [address] [place] [address]- 9869 Jul, Depression, major, recurrent, moderate F33.1 and Anxiety state, unspecified F41.1 [facility] [id number] [place] [address]- 3150 Jun, Depression, major, recurrent, moderate F33.1 and Anxiety state, unspecified F41.1 [facility] [address] 413503- 0423 Jun, Generalized abdominal pain R10.84 ; Diarrhea, unspecified type R19.7 ; Acute cystitis without hematuria N30.00 ; Abdominal bloating R14.0 and Elevated blood pressure reading R03.0 [facility] [address] 29545- 6774 Jun, Depression, major, recurrent, moderate F33.1 and Anxiety state, unspecified F41.1 [facility] [id number] [place] [address]- 7385 May, Depression, major, recurrent, moderate F33.1 and Anxiety state, unspecified F41.1 [facility] [address] [place] [address] 90427- 7439 May, Elevated lymphocytes D72.820 [facility] [address] [place] [address] 36291- 3030 May, Elevated lymphocytes D72.820 [facility] [address]- 0417 May, BMI 35.0-35.9,adult Z68.35 ; Other fatigue R53.83 ; Pelvic pain R10.2 ; Tobacco use Z72.0 and Chronic reflux esophagitis K21.[address] [address]- 4797 Apr, [facility] [id number] [place] [address] 12845- 6474 Apr, Depression, major, recurrent, moderate F33.1 and Anxiety state, unspecified F41.1 [facility] [address] [address]- 7566 Apr, Depression, major, recurrent, moderate F33.1 and Anxiety state, unspecified F41.1 [facility] [id number] [place] [address] 59134- 7404 Apr, [facility] [id number] [place] [address] 42105- 3909 March, Major depressive disorder, recurrent episode, mild F33.0 and Anxiety state, unspecified F41.1 [facility] [id number] [place] [address] 81093 -7501 March, Sore throat J02.9 and Submandibular lymphadenopathy R59.0 [facility] [address] [place] [address] 91815- 1435 Dec, Major depressive disorder, recurrent episode, mild F33.0 and Anxiety state, unspecified F41.1 [facility] [address] [address]- 3190 Dec, Major depressive disorder, recurrent episode, mild F33.0 and Anxiety state, unspecified F41.1 [facility] [address] [address]- 3671 Dec, Major depressive disorder, recurrent episode, mild F33.0 and Anxiety state, unspecified F41.1 [facility] [address] [address]- 7305 Sep, Major depressive disorder, recurrent episode, mild F33.0 and Anxiety state, unspecified F41.1 [facility] [address] [address]- 5042 Sep, Major depressive disorder, recurrent episode, moderate F33.1 and Anxiety state, unspecified F41.1 [facility] [id number] [place] [address] 99918- 4143 Aug, Major depressive disorder, recurrent episode, moderate F33.1 and Anxiety state, unspecified F41.1 [facility] [id number] [place] [address] 69642- 6279 Aug, Major depressive disorder, recurrent episode, moderate F33.1 and Anxiety state, unspecified F41.1 [facility] [id number] [place] [address] 12433- 3059 Jul, Major depressive disorder, recurrent episode, moderate F33.1 and Anxiety state, unspecified F41.1 [facility] [id number] [place] [address] 12156- 9294 Jul, Major depressive disorder, recurrent episode, moderate F33.1 and Anxiety state, unspecified F41.1 [facility] [id number] [place] [address] 74703- 0518 Jun, Major depressive disorder, recurrent episode, moderate F33.1 and Anxiety state, unspecified F41.1 [facility] [address] [place] [address] 47014- 3021 Jun, Major depressive disorder, recurrent episode, moderate F33.1 and Anxiety state, unspecified F41.1 [facility] [address] [place] [address] 87074- 2998 May, Major depressive disorder, recurrent episode, moderate F33.1 and Anxiety state, unspecified F41.1 [facility] [id number] [place] [address] 00969- 3116 Apr, Major depressive disorder, recurrent episode, moderate F33.1 and Anxiety state, unspecified F41.1 [facility] [id number] [place] [address] 75542- 0363 Apr, Major depressive disorder, recurrent episode, moderate F33.1 and Anxiety state, unspecified F41.1 [facility] [id number] [place] [address] 95611- 2184 Dec, Major depressive disorder, recurrent episode, moderate F33.1 and Anxiety state, unspecified F41.1 [facility] [id number] [place] [address] 66476- 8261 Dec, Major depressive disorder, recurrent episode, moderate F33.1 and Anxiety state, unspecified F41.1 [facility] [address] 34610 -6612 Dec, Pharyngitis J02.9 and Acute frontal sinusitis J01.10 [facility] [id number] [place] [address] 28642- 8946 Nov, Bilateral occipital neuralgia M54.81 and Neck muscle spasm M62.838 [facility] [id number] [place] [address] 25009- 0781 Nov, Major depressive disorder, recurrent episode, moderate F33.1 and Anxiety state, unspecified F41.1 [facility] [id number] [place] [address] 63594- 4071 Sep, Major depressive disorder, recurrent episode, moderate F33.1 and Anxiety state, unspecified F41.1 [facility] [id number] [place] [address] 91111- 6985 Aug, Major depressive disorder, recurrent episode, moderate F33.1 and Anxiety state, unspecified F41.1 [facility] [id number] [place] [address] 17615- 8086 Jul, Abdominal pain 789.00 ; Hematochezia 578.1 and Weight loss 783.21 [facility] [id number] [place] [address] 39113- 6774 May, [facility] [address] 57888- 2965 March, [facility] [place] [facility] [address] [id number] [place] [address]- 5867 March, [facility] [place] [facility] [address] [id number] [place] [address]- 4730 Jan, 2014 [facility] [place] [facility] [address] [id number] [place] [address]- 8702 Jan, 2014 [facility] [place] [facility] [address] [id number] [place] [address]- 3876 Dec, 2014 [facility] [place] [facility] [address] [id number] [place] [address]- 8473 Dec, 2014 [facility] [place] [facility] [address] [id number] [place] [address]- 9252 Dec, 2014 [facility] [place] [facility] [address] [facility] [id number] [place] [address]- 0513 Dec, 2014 [facility] [place] [facility] [address] [facility] [id number] [place] [address]- 9543 Dec, 2014 [facility] [place] [facility] [address] [facility] [id number] [place] [address]- 9370 Dec, 2014 [facility] [place] [facility] [address] [facility] [id number] [place] [address]- 2094 Jul, 2013 [facility] [place] [facility] [address] [id number] [place] [address] 2546 25 Jul, 2013 [facility] [place] [facility] [address] [id number] [place] [address]- 2542 11 Jul, 2013 [facility] [place] [facility] [address] [id number] [place] [address] 2546 11 Jul, 2014 [facility] [place] [facility] [address] [facility] [id number] [place] [address]- 2546 10 Jul, 2013 [facility] [place] [facility] [address] [id number] [place] [address]- 2542 Jul, 2013 [facility] [place] [facility] [address] [id number] [place] [address]- 1901 Jul, 2013 [facility] [place] [facility] [address] [id number] [place] [address]- 9068 Jul, 2013 [facility] [place] [facility] [address] [id number] [place] [address]- 3616 Jul, 2013 [facility] [place] [facility] [address] [id number] [place] [address]- 0398 Jul, 2013 [facility] [place] [facility] [address] [id number] [place] [address]- 1282 Jul, [facility] [place] [facility] [address] [id number] [place] [address]- 8725 Jul, [facility] [place] [facility] [address] [id number] [place] [address]- 3181 May, [facility] [place] [facility] [address] [id number] [place] [address]- 0339 May, [facility] [place] [facility] [address] [id number] [place] [address]- 0630 Apr, [facility] [place] [facility] [address] [id number] [place] [address]- 3890 Apr, [facility] [place] [facility] [address] [id number] [place] [address]- 0154 Apr, [facility] [place] [facility] [address] [id number] [place] [address]- 8424 Apr, [facility] [place] [facility] [address] [id number] [place] [address]- 9149 March, [facility] [place] [facility] [address] [id number] [place] [address]- 3021 March, [facility] [place] [facility] [address] [id number] [place] [address]- 1914 Jan, [facility] [place] [facility] [address] [id number] [place] [address]- 0070 16 Jan, 2014 [facility] [place] [facility] [address] [id number] [place] [address]- 5930 Jan, [facility] [place] [facility] [address] [id number] [place] [address]- 0519 Jan, [facility] [place] [facility] [address] [id number] [place] [address]- 7215 Dec, [facility] [place] [facility] [address] [id number] [place] [address]- 7322 25 Dec, 2013 [facility] [place] [facility] [address] [id number] [place] [address]- 3807 18 Dec, 2013 [facility] [place] [facility] [address] [id number] [place] [address]- 7902 18 Dec, 2013 [facility] [place] [facility] [address] [id number] [place] [address]- 7009 15 Dec, 2013 [facility] [place] [facility] [address] [id number] [place] [address]- 0373 14 Dec, 2013 [facility] [place] [facility] [address] [id number] [place] [address]- 9805 13 Dec, 2013 [facility] [place] [facility] [address] [id number] [place] [address]- 0134 13 Dec, 2013 [facility] [place] [facility] [address] [id number] [place] [address]- 2900 12 Dec, 2013 [facility] [place] [facility] [address] [id number] [place] [address]- 5326 12 Dec, 2013 [facility] [place] [facility] [address] [id number] [place] [address]- 6777 05 Dec, 2013 [facility] [place] [facility] [address] [id number] [place] [address]- 0273 05 Dec, 2013 [facility] [place] [facility] [address] [id number] [place] 3468 03 Dec, 2013 [facility] [place] [facility] [address] [id number] [place] [address]- 4236 Dec, [facility] [place] [facility] [address] [id number] [place] [address]- 0660 Dec, [facility] [place] [facility] [address] [id number] [place] [address] 2546 Dec, [facility] [place] [facility] [address] [id number] [place] [address]- 6746 Dec, [facility] [place] [facility] [address] [id number] [place] [address]- 2546 Dec, [facility] [place] [facility] [address] [id number] [place] [address]- 5059 Nov, [facility] [place] [facility] [address] [id number] [place] [address]- 8845 Nov, [facility] [place] [facility] [address] [id number] [place] [address]- 7708 Nov, [facility] [place] [facility] [address] [id number] [place] [address]- 9022 Nov, [facility] [place] [facility] [address] [id number] [place] [address]- 8647 Nov, [facility] [place] [facility] [address] [id number] [place] [address]- 0545 Nov, [facility] [place] [facility] [address] [id number] [place] [address]- 0952 Nov, [facility] [place] [facility] [address] [id number] [place] [address]- 5097 Nov, [facility] [place] [facility] [address] [id number] [place] [address]- 4036 Oct, [facility] [place] [facility] [address] [id number] [place] [address]- 6096 Oct, [facility] [place] [facility] [address] [id number] [place] [address]- 8065 Oct, [facility] [place] [facility] [address] [id number] [place] [address]- 6480 Oct, [facility] [place] [facility] [address] [id number] [place] [address]- 5020 Oct, [facility] [place] [facility] [address] [facility] [id number] [place] [address]- 6162 Oct, [facility] [place] [facility] [address] [id number] [place] [address]- 6295 Sep, [facility] [place] [facility] [address] [id number] [place] [address]- 8017 Sep, [facility] [place] [facility] [address] [id number] [place] [address]- 6765 Sep, [facility] [place] [facility] [address] [id number] [place] [address]- 4145 Sep, [facility] [place] [facility] [address] [id number], [place] [address]- 8338 Aug, [facility] [place] [facility] [address] [id number] [place] [address]- 3907 Aug, [facility] [place] [facility] [address] [facility] [id number], [place] [address]- 6161 Aug, [facility] [place] [facility] [address] [id number], [place] [address]- 9905 Aug, [facility] [place] [facility] [address] [id number], [place] [address]- 5835 Jul, [facility] [place] [facility] [address] [id number], [place] [address] 2542 Jul, [facility] [place] [facility] [address] [id number], [place] [address]- 3251 Jun, [facility] [place] [facility] [address] [facility] [id number], [place] [address]- 2546 Jun, [facility] [place] [facility] [address] [id number] [place] [address]- 4687 28 Apr, 2013 [facility] [address] [id number] [place] [address]- 0573 20 Apr, 2013 [facility] [address] [id number] [place] 0325 15 Apr, 2013 [facility] [address] [id number] [place] [address]- 0133 14 Apr, 2013 [facility] [address] [id number] [place] [address]- 7853 30 Mar, 2013 [facility] [address] [id number] [place] [address]- 4531 March, [facility] [address] [id number] [place] [address]- 3575 March, [facility] [address] [id number] [place] [address]- 4607 Jan, [facility] [address] [id number] [place] [address]- 1365 17 Jan, 2013 [facility] [address] [id number] [place] [address]- 7829 Dec, [facility] [address] [facility] [id number] [place] [address]- 0611 Dec, [facility] [place] [facility] [address] [id number] [place] [address]- 6414 Dec, [facility] [place] [facility] [address] [id number] [place] [address]- 7845 28 Dec, 2012 [facility] [place] [facility] [address] [id number] [place] [address]- 8514 Dec, [facility] [place] [facility] [address] [id number] [place] [address]- 2546 07 Dec, 2012 [facility] [place] [facility] [address] [id number] [place] [address]- 2806 Nov, [facility] [address] [id number] [place] [address]- 1389 Nov, [facility] [place] [facility] [address] [id number] [place] [address] Oct, [facility] [place] [facility] [address] [id number] [place] [address] Oct, [facility] [place] [facility] [address] [id number] [place] [address] Oct, [facility] [address] [id number] [place] [address] Oct, [facility] [place] [facility] [address] [id number] [place] [address] Oct, [facility] [place] [facility] [address] [id number] [place] [address] Oct, [facility] [place] [facility] [address] [id number] [place] [address] Oct, [facility] [place] [facility] [address] [id number] [place] [address] Oct, [facility] [place] [facility] [address] [facility] [id number] [place] [address] Oct, [facility] [place] [facility] [address] [id number], [place] [address] Oct, [facility] [place] [facility] [address] [id number], [place] [address] Sep, [facility] [place] [facility] [address] [id number] [place] [address] Sep, [facility] [place] [facility] [address] [id number], [place] [address] Sep, [facility] [place] [facility] [address] [facility] [id number], [place] [address] Sep, [facility] [place] [facility] [address] [id number], [place] [address] Aug, [facility] [address] [id number] [place] [address] Aug, [facility] [place] [facility] [address] [id number] [place] [address] Aug, [facility] [place] [facility] [address] [id number] [place] [address] Jul, [facility] [place] [facility] [address] [id number] [place] [address] Jun, [facility] [place] [facility] [id number] [place] [address], [place] [address]- [address] Jun, [facility] [place] [facility] [address] [id number] [place] [address] May, [facility] [id number] [place] [address], [place] [address] Apr, [facility] [place] [facility] [address] [facility] [id number] [place] [address] March, [facility] [address] [id number] [place] [address] Jan, [facility] [place] [facility] [address] [facility] [id number] [place] [address] Dec, [facility] [place] [facility] [address] [id number] [place] [address] Dec, [facility] [place] [facility] [address] [id number] [place] [address] Nov, [facility] [place] [facility] [address] [id number] [place] [address] Oct, [facility] [place] [facility] [address] [id number] [place] [address] Oct, [facility] [place] [facility] [address] [facility] [id number] [place] [address] Sep, [facility] [place] [facility] [id number] [address] Aug, [facility] [id number] [address] Dec, [facility] [id number], [place] [address] Oct, [facility] [id number], [place] [address] Oct, [facility] [address] [facility] [id number], [place] [address] Oct, [facility] [address], [place] [address] Jun, [facility] [address] [address] [address] Jun, [facility] [address] [id number] [place] [address] Oct, [facility] [id number] [address] Sep, [facility] [id number] [place] [address] Sep, [facility] [id number] [place] [address] Sep, [facility] [id number] [place] [address] Aug, [facility] [id number] [address] Dec, IMMUNIZATIONS No Known Immunizations SOCIAL HISTORY Never Assessed REASON FOR VISIT Follow-up Depression/Anxiety PLAN OF CARE Activity Details Follow Up 1 Week Reason: Follow-up VITAL SIGNS MEDICATIONS Unknown Medications RESULTS No Results PROCEDURES Procedure Date Ordered Result Body Site Psychotherapy, patient &/family, 45 minutes, established patient June 01, 2017 INSTRUCTIONS MEDICATIONS ADMINISTERED No Known [...]
--- OUTSIDE RECORDS SUMMARY | 2019-01-13 22:08 | XMS REPORT ---
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
--- OUTSIDE RECORDS SUMMARY | 2019-01-13 22:08 | XMS REPORT ---
Author Author PADMINI LUJAN [facility] Address [address] [place] [address] Care Team Providers Care Heel Buffer Name Role Phone LEKJPADMINI Unavailable PROBLEMS Type Condition ICD9-CM Code GMD32-QZ Code Onset Dates Condition Status SNOMED Code Problem Chronic reflux esophagitis K21.0 Active 444283691 Problem Chronic fatigue R53.82 Active 64072144 Problem BMI 35.0-35.9,adult Z68.35 Active 817055970 Problem Prediabetes R73.03 Active 370811653 Problem PTSD (post-traumatic stress disorder) F43.10 Active 84126353 Problem WILMA (generalized anxiety disorder) F41.1 Active 23210434 Problem Elevated lymphocytes D72.820 Active 65243108 Problem Tobacco use Z72.0 Active 253080585 Problem Severe episode of recurrent major depressive disorder, without psychotic features F33.2 Active 80907614 Problem 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 62137939 ALLERGIES No Information ENCOUNTERS Encounter Location Date Diagnosis [facility] [id number] [place] [address] 38401- 4143 Jan, [facility] [id number] [place] [address] 29253- 8994 Jan, [facility] [id number] [place] [address] 69661- 6765 Dec, [facility] [id number] [place] [address] 96960- 1850 Dec, [facility] [address] 62544- 5084 15 Dec, 2017 Severe episode of recurrent major depressive disorder, without psychotic features F33.2 ; WILMA (generalized anxiety disorder) F41.1 and PTSD (post-traumatic stress disorder) F43.10 [facility] [address], [place] [address] Dec, Severe episode of recurrent major depressive disorder, without psychotic features F33.2 [facility] [id number] [place] [address] Dec, Severe episode of recurrent major depressive disorder, without psychotic features F33.2 ; WILMA (generalized anxiety disorder) F41.1 and PTSD (post-traumatic stress disorder) F43.10 [facility] [id number] [place] [address] 55000- 1182 Dec, Severe episode of recurrent major depressive disorder, without psychotic features F33.2 ; WILMA (generalized anxiety disorder) F41.1 and PTSD (post-traumatic stress disorder) F43.10 [facility] [id number] [place] [address] 20467- 3177 Dec, Severe episode of recurrent major depressive disorder, without psychotic features F33.2 and Anxiety state, unspecified F41.1 [facility] [id number] [place] [address] 13957- 1748 Dec, Severe episode of recurrent major depressive disorder, without psychotic features F33.2 and Anxiety state, unspecified F41.1 [facility] [id number] [place] [address] 40483- 6609 Nov, Depression, major, recurrent, moderate F33.1 and Anxiety state, unspecified F41.1 [facility] [id number] [place] [address] 32923- 2379 Nov, Depression, major, recurrent, moderate F33.1 and Anxiety state, unspecified F41.1 [facility] [id number] [place] [address] 436941- 7580 Oct, Depression, major, recurrent, moderate F33.1 and Anxiety state, unspecified F41.1 [facility] [id number] [place] [address] 10033- 5080 Oct, Depression, major, recurrent, moderate F33.1 and Post- cholecystectomy syndrome K91.5 [facility] [id number] [place] [address] 11534- 5861 Oct, Depression, major, recurrent, moderate F33.1 and Anxiety state, unspecified F41.1 [facility] [id number] [place] [address] 61832- 4202 Sep, Depression, major, recurrent, moderate F33.1 and Anxiety state, unspecified F41.1 [facility] [id number] [place] [address] 82454- 0893 Sep, Depression, major, recurrent, moderate F33.1 and Anxiety state, unspecified F41.1 [facility] [id number] [place] [address] 14299- 2673 Sep, Depression, major, recurrent, moderate F33.1 and Anxiety state, unspecified F41.1 [facility] [address] 15779- 6833 Sep, Diarrhea, unspecified type R19.7 [facility] [id number] [place] [address] 07816- 8049 Aug, Depression, major, recurrent, moderate F33.1 and Anxiety state, unspecified F41.1 [facility] [id number] [place] [address] 80115- 3062 Aug, Depression, major, recurrent, moderate F33.1 and Anxiety state, unspecified F41.1 [facility] [id number] [place] [address] 09923- 3905 Jul, Depression, major, recurrent, moderate F33.1 and Anxiety state, unspecified F41.1 [facility] [id number] [place] [address] 26635- 5976 Jun, Depression, major, recurrent, moderate F33.1 and Anxiety state, unspecified F41.1 [facility] [address] 24364- 9173 Jun, Generalized abdominal pain R10.84 ; Diarrhea, unspecified type R19.7 ; Acute cystitis without hematuria N30.00 ; Abdominal bloating R14.0 and Elevated blood pressure reading R03.0 [facility] [id number] [place] [address] 92844- 8895 Jun, Depression, major, recurrent, moderate F33.1 and Anxiety state, unspecified F41.1 [place] [id number] [place] [address] 85343- 8264 May, Depression, major, recurrent, moderate F33.1 and Anxiety state, unspecified F41.[address] 73916- 7788 May, Elevated lymphocytes D72.[address] 49135- 5398 May, Elevated lymphocytes D72.[address] 08712- 5029 May, BMI 35.0-35.9,adult Z68.35 ; Other fatigue R53.83 ; Pelvic pain R10.2 ; Tobacco use Z72.0 and Chronic reflux esophagitis K21.0 [place] [id number] [place] [address] 65589- 2338 Apr, [place] [id number] [place] [address] 83795- 7028 Apr, Depression, major, recurrent, moderate F33.1 and Anxiety state, unspecified F41.1 [place] [id number] [place] [address] 40556- 5460 Apr, Depression, major, recurrent, moderate F33.1 and Anxiety state, unspecified F41.1 [place] [id number] [place] [address] 33098- 6668 Apr, [address] [place] [address]- 7062 March, Major depressive disorder, recurrent episode, mild F33.0 and Anxiety state, unspecified F41.1 [facility] [id number] [place] [address] 69684 -2800 March, Sore throat J02.9 and Submandibular lymphadenopathy R59.0 [facility] [id number] [place] [address] 34997- 3764 Dec, Major depressive disorder, recurrent episode, mild F33.0 and Anxiety state, unspecified F41.1 [facility] [id number] [place] [address] 31344- 6871 Dec, Major depressive disorder, recurrent episode, mild F33.0 and Anxiety state, unspecified F41.1 [facility] [id number] [place] [address] 13160- 0443 Dec, Major depressive disorder, recurrent episode, mild F33.0 and Anxiety state, unspecified F41.1 [facility] [id number] [place] [address] 99987- 8997 Sep, Major depressive disorder, recurrent episode, mild F33.0 and Anxiety state, unspecified F41.1 [facility] [address] [place] [address] 38319- 7541 Sep, Major depressive disorder, recurrent episode, moderate F33.1 and Anxiety state, unspecified F41.1 [facility] [address] [place] [address] 83970- 6229 Aug, Major depressive disorder, recurrent episode, moderate F33.1 and Anxiety state, unspecified F41.1 [facility] [id number] [place] [address] 49107- 9147 Aug, Major depressive disorder, recurrent episode, moderate F33.1 and Anxiety state, unspecified F41.1 [facility] [id number] [place] [address] 87644- 4579 Jul, Major depressive disorder, recurrent episode, moderate F33.1 and Anxiety state, unspecified F41.1 [facility] [address] [place] [address] 14966- 4932 Jul, Major depressive disorder, recurrent episode, moderate F33.1 and Anxiety state, unspecified F41.1 [facility] [address] [place] [address] 34779- 5898 Jun, Major depressive disorder, recurrent episode, moderate F33.1 and Anxiety state, unspecified F41.1 [facility] [id number] [place] [address] 48110- 6836 Jun, Major depressive disorder, recurrent episode, moderate F33.1 and Anxiety state, unspecified F41.1 [facility] [id number] [place] [address] 72937- 7371 May, Major depressive disorder, recurrent episode, moderate F33.1 and Anxiety state, unspecified F41.1 [facility] [id number] [place] [address] 21905- 0284 Apr, Major depressive disorder, recurrent episode, moderate F33.1 and Anxiety state, unspecified F41.1 [facility] [id number] [place] [address] 36323- 8240 Apr, Major depressive disorder, recurrent episode, moderate F33.1 and Anxiety state, unspecified F41.1 [facility] [address] [place] [address] 70452- 2178 Dec, Major depressive disorder, recurrent episode, moderate F33.1 and Anxiety state, unspecified F41.1 [facility] [address] [place] [address] 38571- 3221 Dec, Major depressive disorder, recurrent episode, moderate F33.1 and Anxiety state, unspecified F41.1 [facility] [address], [place] [address]1831 Dec, Pharyngitis J02.9 and Acute frontal sinusitis J01.10 [facility] [address] [place] [address] 71214- 2008 Nov, Bilateral occipital neuralgia M54.81 and Neck muscle spasm M62.838 [facility] [id number] [place] [address] 73268- 5606 Nov, Major depressive disorder, recurrent episode, moderate F33.1 and Anxiety state, unspecified F41.1 [facility] [id number] [place] [address] 76803- 3947 Sep, Major depressive disorder, recurrent episode, moderate F33.1 and Anxiety state, unspecified F41.1 [facility] [id number] [place] [address] 38239- 8362 Aug, Major depressive disorder, recurrent episode, moderate F33.1 and Anxiety state, unspecified F41.1 [facility] [id number] [place] [address] 80782- 8827 Jul, Abdominal pain 789.00 ; Hematochezia 578.1 and Weight loss 783.21 [facility] [id number] [place] [address] 91782- 4429 May, [facility] [id number] [place] [address] 66659- 7992 March, [facility] [id number] [place] [address] 19827- 2083 March, [facility] [id number] [place] [address] 17735- 1353 Jan, [facility] [id number] [place] [address] 75812- 7251 Jan, [facility] [id number] [place] [address] [id number]- 7083 Dec, [facility] [id number] [place] [address] 52546- 4248 Dec, [facility] [place] [facility] [address] [id number] [place] [address]- 4119 06 Dec, 2014 [facility] [place] [facility] [address] [id number] [place] [address]- 2490 Dec, 2014 [facility] [place] [facility] [address] [id number] [place] [address]- 7447 Dec, 2014 [facility] [place] [facility] [address] [id number] [place] [address]- 9550 Dec, 2014 [facility] [place] [facility] [address] [id number] [place] [address]- 5364 Jul, 2013 [facility] [place] [facility] [address] [id number] [place] [address]- 2952 25 Jul, 2013 [facility] [place] [facility] [address] [id number] [place] [address]- 2477 Jul, 2013 [facility] [place] [facility] [address] [id number] [place] [address]- 3508 11 Jul, 2013 [facility] [place] [facility] [address] [id number] [place] [address]- 2544 10 Jul, 2013 [facility] [place] [facility] [address] [id number] [place] [address]- 2541 10 Jul, 2013 [facility] [place] [facility] [address] [id number] [place] [address]- 1732 09 Sep, 2013 [facility] [place] [facility] [address] [id number] [place] [address]- 2545 09 Sep, 2013 [facility] [place] [facility] [address] [id number] [place] [address] 2545 09 Sep, 2013 [facility] [place] [facility] [address] [id number] [place] [address]- 2543 09 Sep, 2013 [facility] [place] [facility] [address] [id number] [place] [address]- 2542 04 Sep, 2013 [facility] [place] [facility] [address] [id number] [place] [address]- 6806 Jul, [facility] [place] [facility] [address] [id number] [place] [address]- 3850 May, [facility] [place] [facility] [address] [id number] [place] [address]- 1229 May, [facility] [place] [facility] [address] [id number] [place] [address]- 6243 Apr, [facility] [place] [facility] [address] [id number] [place] [address]- 3509 Apr, [facility] [place] [facility] [address] [id number] [place] [address]- 8553 Apr, [facility] [place] [facility] [address] [id number] [place] [address]- 9545 Apr, [facility] [place] [facility] [address] [id number] [place] [address]- 5834 March, [facility] [place] [facility] [address] [id number] [place] [address]- 1114 March, [facility] [place] [facility] [address] [id number] [place] [address]- 9123 Jan, [facility] [place] [facility] [address] [id number] [place] [address]- 0236 Jan, [facility] [place] [facility] [address] [id number] [place] [address]- 1067 Jan, [facility] [place] [facility] [address] [id number] [place] [address]- 7462 Jan, [facility] [place] [facility] [address] [id number] [place] [address]- 8733 Dec, [facility] [place] [facility] [address] [id number] [place] [address]- 3611 Dec, [facility] [place] [facility] [address] [id number] [place] [address]- 7533 Dec, [facility] [place] [facility] [address] [id number] [place] [address]- 4686 18 Dec, 2013 [facility] [address] [id number] [place] [address]- 4471 15 Dec, 2013 [facility] [place] [facility] [address] [id number] [place] [address]- 4632 14 Dec, 2013 [facility] [place] [facility] [address] [id number] [place] [address]- 5915 13 Dec, 2013 [facility] [place] [facility] [address] [id number] [place] [address]- 3477 13 Dec, 2013 [facility] [place] [facility] [address] [id number] [place] [address]- 2720 12 Dec, 2013 [facility] [place] [facility] [address] [id number] [place] [address]- 4507 12 Dec, 2013 [facility] [place] [facility] [address] [id number] [place] [address]- 5445 05 Dec, 2013 [facility] [place] [facility] [address] [id number] [place] [address]- 1773 05 Dec, 2013 [facility] [place] [facility] [address] [id number] [place] [address]- 3371 Dec, [facility] [place] [facility] [address] [id number] [place] [address]- 3280 Dec, [facility] [place] [facility] [address] [id number] [place] [address]- 7855 Dec, [facility] [place] [facility] [address] [id number] [place] [address]- 3994 Dec, [facility] [place] [facility] [address] [id number] [place] [address]- 4819 Dec, [facility] [place] [facility] [address] [id number] [place] [address]- 8426 Dec, [facility] [place] [facility] [address] [id number] [place] [address]- 4170 Nov, [facility] [place] [facility] [address] [id number] [place] [address]- 0528 Nov, [facility] [place] [facility] [address] [id number] [place] [address]- 4535 Nov, [facility] [place] [facility] [address] [id number] [place] [address]- 2703 Nov, [facility] [place] [facility] [address] [id number] [place] [address]- 2753 Nov, [facility] [place] [facility] [address] [id number] [place] [address]- 7871 Nov, [facility] [place] [facility] [address] [id number] [place] [address]- 6238 Nov, [facility] [place] [facility] [address] [id number] [place] [address]- 1936 Nov, [facility] [place] [facility] [address] [id number] [place] [address]- 7724 Oct, [facility] [place] [facility] [address] [id number] [place] [address]- 6268 Oct, [facility] [place] [facility] [address] [id number] [place] [address]- 1165 Oct, [facility] [place] [facility] [address] [id number] [place] [address]- 1433 Oct, [facility] [place] [facility] [address] [id number], [place] [address]- 9213 Oct, [facility] [place] [facility] [address] [id number] [place] [address]- 4648 Oct, [facility] [place] [facility] [address] [id number] [place] [address]- 2891 Sep, [facility] [place] [facility] [address] [id number] [place] [address]- 3550 Sep, [facility] [place] [facility] [address] [id number] [place] [address]- 8295 08 Sep, 2013 [facility] [address] [id number] [place] [address]- 8251 Sep, [facility] [place] [facility] [address] [id number] [place] [address]- 0806 Aug, [facility] [place] [facility] [address] [id number] [place] [address]- 5098 Aug, [facility] [place] [facility] [address] [id number] [place] [address]- 5991 Aug, [facility] [place] [facility] [address] [id number] [place] [address]- 9430 Aug, [facility] [place] [facility] [address] [id number] [place] [address]- 7949 Jul, [facility] [place] [facility] [address] [id number] [place] [address]- 5142 Jul, [facility] [place] [facility] [address] [id number] [place] [address]- 3244 Jun, [facility] [place] [facility] [address] [id number] [place] [address]- 7145 Jun, [facility] [place] [facility] [address] [id number] [place] [address]- 8733 Apr, [facility] [place] [facility] [address] [id number] [place] [address]- 0297 Apr, [facility] [place] [facility] [address] [id number] [place] [address]- 9733 Apr, [facility] [place] [facility] [address] [id number] [place] [address]- 0911 Apr, [facility] [place] [facility] [address] [id number] [place] [address]- 7982 March, [facility] [place] [facility] [address] [id number] [place] [address]- 6283 March, [facility] [place] [facility] [address] [id number] [place] [address] 2546 March, [facility] [address] [id number] [place] [address]- 2586 Jan, [facility] [place] [facility] [address] [id number] [place] [address]- 2546 Jan, [facility] [address] [id number] [place] [address]- 9061 Dec, [facility] [address] [id number] [place] [address] 2541 Dec, [facility] [address] [id number] [place] [address]- 2546 Dec, [facility] [address] [id number] [place] [address]- 8936 Dec, [facility] [address] [id number] [place] [address]- 3596 Dec, [facility] [address] [id number] [place] [address]- 9707 Dec, [facility] [address] [id number] [place] [address]- 4086 Nov, [facility] [address] [id number] [place] [address] 2546 Nov, [facility] [address] [id number] [place] [address]- 5546 Oct, [facility] [place] [facility] [address] [id number] [place] [address]- 5083 Oct, [facility] [place] [facility] [address] [id number] [place] [address]- 5536 Oct, [facility] [place] [facility] [address] [id number] [place] [address]- 2546 Oct, [facility] [address] [id number], [place] [address]- 9256 Oct, [facility] [place] [facility] [address] [id number] [place] [address]- 1865 Oct, [facility] [place] [facility] [address] [id number] [place] [address]- 0806 Oct, [facility] [place] [facility] [address] [facility] [id number] [place] [address]- 9206 Oct, [facility] [place] [facility] [address] [id number] [place] [address]- 1178 Oct, [facility] [place] [facility] [address] [id number] [id number] [address] Oct, [facility] [place] [facility] [address] [id number] [place] [address] Sep, [facility] [place] [facility] [address] [id number], [place] [address] Sep, [facility] [place] [facility] [address] [id number] [place] [address] Sep, [facility] [place] [facility] [address] [id number] [place] [address] Sep, [facility] [place] [facility] [address] [facility] [id number], [place] [address] Aug, [facility] [place] [facility] [address] [id number], [place] [address] Aug, [facility] [place] [facility] [address] [id number], [place] [address] Aug, [facility] [place] [facility] [address] [id number], [place] [address] Jul, [facility] [place] [facility] [address] [id number], [place] [address] Jun, [facility] [place] [facility] [address] [facility] [id number] [place] [address] Jun, [facility] [place] [facility] [address] [id number] [place] [address] May, [facility] [address] [id number] [place] [address] Apr, [facility] [place] [facility] [address] [id number] [place] [address] March, [facility] [place] [facility] [address] [id number] [place] [address] Jan, [facility] [place] [facility] [address] [id number] [place] [address] Dec, [facility] [place] [facility] [address] [id number] [place] [address] Dec, [facility] [place] [facility] [address] [id number] [place] [address] Nov, [facility] [place] [facility] [address] [id number] [place] [address] Oct, [facility] [address] [id number] [place] [address] Oct, [facility] [place] [facility] [address] [id number] [place] [address] Sep, [facility] [place] [facility] [address] [id number] [place] [address] Aug, [facility] [place] [facility] [address] [id number] [place] [address] Dec, [facility] [place] [facility] [address] [id number] [place] [address] Oct, [facility] [place] [facility] [address] [id number] [place] [address] Oct, [facility] [place] [facility] [address] [id number] [place] [address] Oct, [facility] [place] [facility] [address] [id number] [place] [address] Jun, [facility] [address] [facility] [id number], [place] [address] Jun, [facility] [id number], [place] [address] Oct, [facility] [address] [id number], [place] [address] Sep, [facility] [id number], [place] [address] Sep, [facility] [address] [id number], [place] [address] Sep, [facility] [address] [id number], [place] [address] Aug, [facility] [address] [id number], [place] [address] Dec, IMMUNIZATIONS No Known Immunizations SOCIAL HISTORY Never Assessed REASON FOR VISIT Follow-up Depression/Anxiety PLAN OF CARE Activity Details Follow Up 4 Weeks Reason: Follow-up VITAL SIGNS MEDICATIONS Unknown Medications RESULTS No Results PROCEDURES Procedure Date Ordered Result Body Site Psychotherapy, patient &/family, 45 minutes, established patient April 22, 2017 INSTRUCTIONS MEDICATIONS ADMINISTERED No Known [...]
--- OUTSIDE RECORDS SUMMARY | 2019-01-13 22:09 | XMS REPORT ---
Author [facility] Address [address] [place] [address] Care Team Providers Care Direct Support Staff Member Name Role Phone PADMINI LUJAN Unavailable PROBLEMS Type Condition ICD9-CM Code [id number] Code Onset Dates Condition Status SNOMED Code Problem BMI 35.0-35.9,adult Z68.35 Active 034591600 Problem Tobacco use Z72.0 Active 321999360 Problem Chronic fatigue R53.82 Active 04301850 Problem Prediabetes R73.03 Active 627013292 Problem Chronic reflux esophagitis K21.0 Active 537308643 Problem Carpal tunnel syndrome of right wrist G56.01 Active 24746470 Problem PTSD (post-traumatic stress disorder) F43.10 Active 83641412 Problem 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 00823443 Problem Elevated lymphocytes D72.820 Active 35768830 Problem WILMA (generalized anxiety disorder) F41.1 Active 94981094 Problem Severe episode of recurrent major depressive disorder, without psychotic features F33.2 Active 84955101 ALLERGIES No Information ENCOUNTERS Encounter Location Date Diagnosis [facility] [id number] [place] [address] 85221- 3058 May, [facility] [id number] [place] [address] 09262- 8078 Apr, [facility] [id number] [place] [address] 53684- 5938 Apr, [facility] [address] 70672- 1470 March, Severe episode of recurrent major depressive disorder, without psychotic features F33.2 ; WILMA (generalized anxiety disorder) F41.1 and PTSD (post-traumatic stress disorder) F43.10 [facility] [address] [address]- [address]158 March, Severe episode of recurrent major depressive disorder, without psychotic features F33.2 ; WILMA (generalized anxiety disorder) F41.1 and PTSD (post-traumatic stress disorder) F43.10 [facility] [address] [address] March, [facility] [id number] [place] [address] 54573- 9915 Jan, Severe episode of recurrent major depressive disorder, without psychotic features F33.2 ; WILMA (generalized anxiety disorder) F41.1 and PTSD (post-traumatic stress disorder) F43.10 [facility] [id number] [place] [address] 79899- 5078 Jan, Carpal tunnel syndrome of right wrist G56.01 [facility] [id number] [place] [address] 13183- 8557 Jan, Severe episode of recurrent major depressive disorder, without psychotic features F33.2 ; WILMA (generalized anxiety disorder) F41.1 and PTSD (post-traumatic stress disorder) F43.10 [facility] [facility] [id number] [place] [address] 48619- 7487 Dec, Severe episode of recurrent major depressive disorder, without psychotic features F33.2 ; WILMA (generalized anxiety disorder) F41.1 and PTSD (post-traumatic stress disorder) F43.10 [facility] [id number] [place] [address] 35320- 9397 Dec, Severe episode of recurrent major depressive disorder, without psychotic features F33.2 ; WILMA (generalized anxiety disorder) F41.1 and PTSD (post-traumatic stress disorder) F43.10 [facility] [id number] [place] [address] 89863- 6068 Dec, Severe episode of recurrent major depressive disorder, without 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 ; WILMA (generalized anxiety disorder) F41.1 and PTSD (post-traumatic stress disorder) F43.10 [facility] [id number] [place] [address] 31979- 6202 Dec, Severe episode of recurrent major depressive disorder, without psychotic features F33.2 [facility] [id number] [place] [address] Dec, Severe episode of recurrent major depressive disorder, without psychotic features F33.2 ; WILMA (generalized anxiety disorder) F41.1 and PTSD (post-traumatic stress disorder) F43.10 [facility] [id number] [place] [address] Dec, Severe episode of recurrent major depressive disorder, without psychotic features F33.2 ; WILMA (generalized anxiety disorder) F41.1 and PTSD (post-traumatic stress disorder) F43.10 [facility] [id number] [place] [address] Dec, Severe episode of recurrent major depressive disorder, without psychotic features F33.2 and Anxiety state, unspecified F41.1 [facility] [id number] [place] [address] 29012- 2140 Dec, Severe episode of recurrent major depressive disorder, without psychotic features F33.2 and Anxiety state, unspecified F41.1 [facility] [id number] [place] [address] 93607- 5887 Nov, Depression, major, recurrent, moderate F33.1 and Anxiety state, unspecified F41.1 [facility] [id number] [place] [address] 22521- 5943 Nov, Depression, major, recurrent, moderate F33.1 and Anxiety state, unspecified F41.1 [facility] [id number] [place] [address] 87254- 8883 Oct, Depression, major, recurrent, moderate F33.1 and Anxiety state, unspecified F41.1 [facility] [id number] [place] [address] 90316- 0195 Oct, Depression, major, recurrent, moderate F33.1 and Post- cholecystectomy syndrome K91.5 [facility] [id number] [place] [id number] 07 Oct, 2017 Depression, major, recurrent, moderate F33.1 and Anxiety state, unspecified F41.1 [facility] [id number] [place] [address] Sep, Depression, major, recurrent, moderate F33.1 and Anxiety state, unspecified F41.1 [facility] [id number] [place] [address]- 8952 Sep, Depression, major, recurrent, moderate F33.1 and Anxiety state, unspecified F41.1 [place] [address]- [address]335 Sep, Depression, major, recurrent, moderate F33.1 and Anxiety state, unspecified F41.1 [place] [address]- 3927 Sep, Diarrhea, unspecified type R19.7 [place] [id number] [place] [address] 40767- 5738 Aug, Depression, major, recurrent, moderate F33.1 and Anxiety state, unspecified F41.1 [place] [id number] [place] [address] 3913 Aug, Depression, major, recurrent, moderate F33.1 and Anxiety state, unspecified F41.1 [facility] [id number] [place] 6[address] Jul, Depression, major, recurrent, moderate F33.1 and Anxiety state, unspecified F41.1 [place] [id number] [place] [address] Jun, Depression, major, recurrent, moderate F33.1 and Anxiety state, unspecified F41.1 [place] [id number] [place] [address] 86854- 0399 Jun, Generalized abdominal pain R10.84 ; Diarrhea, unspecified type R19.7 ; Acute cystitis without hematuria N30.00 ; Abdominal bloating R14.0 and Elevated blood pressure reading R03.0 [facility] [id number] [place] [address] 07634- 2944 Jun, Depression, major, recurrent, moderate F33.1 and Anxiety state, unspecified F41.[address] 78008- 1458 May, Depression, major, recurrent, moderate F33.1 and Anxiety state, unspecified F41.[address] 76416- 7264 May, Elevated lymphocytes D72.820 [place] [id number] [place] [address] 60214- 7858 May, Elevated lymphocytes D72.820 [place] [id number] [place] [address] 14030- 7999 May, BMI 35.0-35.9,adult Z68.35 ; Other fatigue R53.83 ; Pelvic pain R10.2 ; Tobacco use Z72.0 and Chronic reflux esophagitis K21.0 [place] [id number] [place] [address] 86210- 9489 Apr, [place] [id number] [place] [address] 96200- 7833 Apr, Depression, major, recurrent, moderate F33.1 and Anxiety state, unspecified F41.1 [place] [id number] [place] [address] 20446- 0657 Apr, Depression, major, recurrent, moderate F33.1 and Anxiety state, unspecified F41.1 [place] [id number] [place] [address] 11737- 0078 Apr, [address] 17295- 7299 March, Major depressive disorder, recurrent episode, mild F33.0 and Anxiety state, unspecified F41.1 [facility] [id number] [place] [address] 07673 -3929 March, Sore throat J02.9 and Submandibular lymphadenopathy R59.0 [facility] [id number] [place] [address] 72091- 9442 Dec, Major depressive disorder, recurrent episode, mild F33.0 and Anxiety state, unspecified F41.1 [facility] [id number] [place] [address] 21784- 5099 Dec, Major depressive disorder, recurrent episode, mild F33.0 and Anxiety state, unspecified F41.1 [facility] [id number] [place] [address] 76326- 3969 Dec, Major depressive disorder, recurrent episode, mild F33.0 and Anxiety state, unspecified F41.1 [facility] [id number] [place] [address] 17585- 1364 Sep, Major depressive disorder, recurrent episode, mild F33.0 and Anxiety state, unspecified F41.1 [facility] [id number] [place] [address] 80957- 9391 Sep, Major depressive disorder, recurrent episode, moderate F33.1 and Anxiety state, unspecified F41.1 [facility] [id number] [place] [address] 25651- 1851 Aug, Major depressive disorder, recurrent episode, moderate F33.1 and Anxiety state, unspecified F41.1 [facility] [id number] [place] [address] 72687- 3249 Aug, Major depressive disorder, recurrent episode, moderate F33.1 and Anxiety state, unspecified F41.1 [facility] [address] [place] [address] 98764- 0557 Jul, Major depressive disorder, recurrent episode, moderate F33.1 and Anxiety state, unspecified F41.1 [facility] [address] [address]- 4147 Jul, Major depressive disorder, recurrent episode, moderate F33.1 and Anxiety state, unspecified F41.1 [facility] [facility] [address] [address]- 8288 Jun, Major depressive disorder, recurrent episode, moderate F33.1 and Anxiety state, unspecified F41.1 [facility] [address] [address]- 5473 Jun, Major depressive disorder, recurrent episode, moderate F33.1 and Anxiety state, unspecified F41.1 [facility] [id number] [place] [address] 65280- 2711 May, Major depressive disorder, recurrent episode, moderate F33.1 and Anxiety state, unspecified F41.1 [facility] [id number] [place] [address] 15156- 9000 Apr, Major depressive disorder, recurrent episode, moderate F33.1 and Anxiety state, unspecified F41.1 [place] [address] [place] [address] 29306- 7047 Apr, Major depressive disorder, recurrent episode, moderate F33.1 and Anxiety state, unspecified F41.1 [facility] [facility] [address] [address]- 3731 Dec, Major depressive disorder, recurrent episode, moderate F33.1 and Anxiety state, unspecified F41.1 [facility] [facility] [address] [address]- 2064 Dec, Major depressive disorder, recurrent episode, moderate F33.1 and Anxiety state, unspecified F41.1 [facility] [address] [address] Dec, Pharyngitis J02.9 and Acute frontal sinusitis J01.10 [facility] [id number] [place] [address] 89112- 0477 Nov, Bilateral occipital neuralgia M54.81 and Neck muscle spasm M62.838 [facility] [id number] [place] [address] 18261- 8872 Nov, Major depressive disorder, recurrent episode, moderate F33.1 and Anxiety state, unspecified F41.1 [facility] [id number] [place] [address] 52775- 3691 Sep, Major depressive disorder, recurrent episode, moderate F33.1 and Anxiety state, unspecified F41.1 [facility] [id number] [place] [address] 19393- 1553 Aug, Major depressive disorder, recurrent episode, moderate F33.1 and Anxiety state, unspecified F41.1 [facility] [id number] [place] [address] 51941- 8675 Jul, Abdominal pain 789.00 ; Hematochezia 578.1 and Weight loss 783.21 [facility] [id number] [place] [address] 00334- 7985 May, [facility] [id number] [place] [address] 17712- 5127 March, [facility] [id number] [place] [address] 32591- 3662 March, [facility] [id number] [place] [address] 52527- 5136 Jan, [facility] [id number] [place] [address] 82804- 6487 Jan, [facility] [id number] [place] [address] 66395- 0244 Dec, [facility] [id number] [place] [address] 24310- 6288 Dec, [facility] [id number] [place] [address] 02671- 5501 Dec, 2014 [facility] [place] [facility] [address] [id number] [place] [address]- 0456 Dec, 2014 [facility] [place] [facility] [address] [id number] [place] [address]- 9656 Dec, 2014 [facility] [place] [facility] [address] [id number] [place] [address]- 9526 Dec, 2014 [facility] [place] [facility] [address] [id number] [place] [address]- 0432 Jul, 2013 [facility] [place] [facility] [address] [id number] [place] [address]- 9605 25 Jul, 2013 [facility] [place] [facility] [address] [id number] [place] [address]- 8393 11 Jul, 2013 [facility] [place] [facility] [address] [id number] [place] [address]- 6217 11 Jul, 2013 [facility] [place] [facility] [address] [id number] [place] [address]- 2549 10 Sep, 2013 [facility] [place] [facility] [address] [id number] [place] [address]- 3589 10 Jul, 2013 [facility] [place] [facility] [address] [id number] [place] [address]- 8380 09 Sep, 2013 [facility] [place] [facility] [address] [id number] [place] [address] 2540 09 Sep, 2013 [facility] [place] [facility] [address] [id number] [address]- 2541 09 Sep, 2013 [facility] [place] [facility] [address] [id number] [place] [address]- 2548 09 Sep, 2013 [facility] [place] [facility] [address] [id number] [place] [address]- 5195 04 Sep, 2013 [facility] [place] [facility] [address] [id number] [place] [address]- 8004 04 Sep, 2013 [facility] [place] [facility] [address] [id number] [place] [address]- 4483 May, [facility] [place] [facility] [address] [id number] [place] [address]- 7568 May, [facility] [place] [facility] [address] [id number] [place] [address]- 3434 Apr, [facility] [place] [facility] [address] [id number] [place] [address]- 3602 Apr, [facility] [place] [facility] [address] [id number] [place] [address]- 5104 Apr, [facility] [place] [facility] [address] [id number] [place] [address]- 0253 Apr, [facility] [place] [facility] [address] [id number] [place] [address]- 1050 March, [facility] [place] [facility] [address] [id number] [place] [address]- 6983 March, [facility] [place] [facility] [address] [id number] [place] 4361 Jan, [facility] [place] [facility] [address] [id number] [place] [address]- 6478 Jan, [facility] [place] [facility] [address] [id number] [place] [address]- 8228 Jan, [facility] [place] [facility] [address] [id number] [place] [address]- 2798 Jan, [facility] [place] [facility] [address] [id number] [place] [address]- 5693 Dec, [facility] [place] [facility] [address] [id number] [place] [address]- 5106 Dec, [facility] [place] [facility] [address] [id number] [place] [address]- 6824 Dec, [facility] [place] [facility] [address] [id number] [place] [address]- 3478 18 Dec, 2013 [facility] [place] [facility] [address] [id number] [place] [address]- 6762 15 Dec, 2013 [facility] [place] [facility] [address] [id number] [place] [address]- 2000 14 Dec, 2013 [facility] [place] [facility] [address] [id number] [place] [address]- 6142 13 Dec, 2013 [facility] [place] [facility] [address] [id number] [place] [address]- 3712 13 Dec, 2013 [facility] [place] [facility] [address] [id number] [place] [address]- 9524 12 Dec, 2013 [facility] [place] [facility] [address] [id number] [place] [address]- 1683 12 Dec, 2013 [facility] [place] [facility] [address] [id number] [place] [address]- 0883 05 Dec, 2013 [facility] [place] [facility] [address] [id number] [place] [address]- 9804 05 Dec, 2013 [facility] [place] [facility] [address] [id number] [place] [address]- 2962 Dec, [facility] [place] [facility] [address] [id number] [place] [address]- 7518 Dec, [facility] [place] [facility] [address] [id number] [place] [address]- 5979 Dec, [facility] [place] [facility] [address] [id number] [place] [address]- 9285 Dec, [facility] [place] [facility] [address] [id number] [place] [address]- 7342 Dec, [facility] [place] [facility] [address] [id number] [place] [address]- 3045 Dec, [facility] [place] [facility] [address] [id number] [place] [address]- 9717 Nov, [facility] [place] [facility] [address] [id number] [place] [address]- 1209 Nov, [facility] [address] [id number] [place] [address]- 0549 Nov, [facility] [address] [id number] [place] [address]- 6676 Nov, [facility] [address] [id number] [place] [address]- 3826 Nov, [facility] [address] [id number] [place] [address]- 9014 Nov, [facility] [address] [id number] [place] [address]- 7618 Nov, [facility] [address] [id number] [place] [address]- 9136 Nov, [facility] [address] [id number] [place] [address]- 2943 Oct, [facility] [address] [id number] [place] [address]- 0920 Oct, [facility] [address] [id number] [place] [address]- 5933 Oct, [facility] [address] [id number] [place] [address]- 2289 Oct, [facility] [address] [id number] [place] [address]- 2546 Oct, [facility] [address] [id number] [place] [address]- 2546 Oct, [facility] [place] [facility] [address] [id number] [place] [address]- 6236 Sep, [facility] [place] [facility] [address] [id number] [place] [address]- 2546 Sep, [facility] [address] [id number] [place] [address]- 0866 Sep, [facility] [place] [facility] [address] [id number] [place] [address]- 3227 Sep, [facility] [place] [facility] [address] [id number] [place] [address]- 3388 Aug, [facility] [place] [facility] [address] [id number] [place] [address]- 4163 Aug, [facility] [place] [facility] [address] [id number] [place] [address]- 7106 Aug, [facility] [place] [facility] [address] [id number] [place] 6781 Aug, [facility] [place] [facility] [address] [id number] [place] 3230 Jul, [facility] [place] [facility] [address] [id number] [place] [address]- 2816 Jul, [facility] [place] [facility] [address] [id number] [place] [address]- 1225 Jun, [facility] [place] [facility] [address] [id number] [place] 7901 Jun, [facility] [place] [facility] [address] [id number], [place] [address]- 5398 Apr, [facility] [place] [facility] [address] [id number], [place] [address]- 9482 Apr, [facility] [place] [facility] [address] [id number], [place] [address]- 9571 15 Apr, 2013 [facility] [place] [facility] [address] [id number] [place] [address]- 9776 Apr, [facility] [place] [facility] [address] [id number], [place] [address]- 8456 30 Mar, 2013 [facility] [place] [facility] [address] [id number], [place] [address]- 7289 March, [facility] [place] [facility] [address] [id number], [place] [address]- 1929 March, [facility] [address] [id number] [place] [address]- 7132 Jan, [facility] [address] [id number] [place] [address]- 5986 Jan, [facility] [address] [id number] [place] [address]- 3986 Dec, [facility] [address] [id number] [place] [address]- 5674 Dec, [facility] [address] [id number] [place] [address]- 2651 Dec, [facility] [address] [id number] [place] [address]- 6486 Dec, [facility] [address] [id number] [place] [address]- 3402 Dec, [facility] [address] [id number] [place] [address]- 6118 Dec, [facility] [address] [id number] [place] [address] Nov, [facility] [address] [facility] [id number] [place] [address] Nov, [facility] [address] [id number] [place] [address] Oct, [facility] [address] [id number] [place] [address] Oct, [facility] [place] [facility] [address] [id number] [place] [address] Oct, [facility] [address] [id number] [place] [address] Oct, [facility] [address] [id number] [place] [address] Oct, [facility] [place] [facility] [address] [id number] [place] [address] Oct, [facility] [place] [facility] [address] [id number] [place] [address] Oct, [facility] [place] [facility] [address] [id number] [place] [address] Oct, [facility] [place] [facility] [address] [id number] [place] [address] Oct, [facility] [place] [facility] [address] [id number] [place] [address] Oct, [facility] [place] [facility] [address] [id number] [place] [address] Sep, [facility] [place] [facility] [address] [id number] [place] [address] Sep, [facility] [place] [facility] [address] [id number] [place] [address] Sep, [facility] [place] [facility] [address] [id number] [place] [address] Sep, [facility] [place] [facility] [address] [id number] [place] [address] Aug, [facility] [place] [facility] [address] [id number] [place] [address] Aug, [facility] [place] [facility] [address] [id number] [place] [address] Aug, [facility] [place] [facility] [address] [id number] [place] [address] Jul, [facility] [place] [facility] [address] [id number] [place] [address] Jun, [facility] [place] [facility] [address] [id number] [place] [address] Jun, [facility] [place] [facility] [address] [id number] [place] [address] May, [facility] [address] [id number] [place] [address] Apr, [facility] [place] [facility] [address] [id number] [place] [address] March, [facility] [place] [facility] [address] [id number] [place] [address] Jan, [facility] [place] [facility] [address] [id number] [place] [address] Dec, [facility] [place] [facility] [address] [id number] [place] [address] Dec, [facility] [place] [facility] [address] [id number] [place] [address] Nov, [facility] [address] [id number] [place] [address] Oct, [facility] [place] [facility] [address] [address] [id number] [place] [address] Oct, [facility] [place] [facility] [address] [id number] [place] [address] Sep, [facility] [place] [facility] [address] [id number] [place] [address] Aug, [facility] [place] [facility] [address] [id number] [place] [address] Dec, [facility] [place] [facility] [address] [id number] [place] [address] Oct, [facility] [place] [facility] [address] [id number] [place] [address] Oct, [facility] [place] [facility] [address] [id number] [place] [address] Oct, [facility] [place] [facility] [address] [id number] [place] [address] Jun, [facility] [place] [facility] [address] [id number] [address] Jun, [facility] [address] [id number] [address] Oct, [facility] [id number] [address] Sep, [facility] [address] [id number] [address] Sep, [facility] [id number] [address] Sep, [facility] [address] [id number] [address] Aug, [facility] [id number] [address] Dec, IMMUNIZATIONS No Known Immunizations SOCIAL HISTORY Never Assessed REASON FOR VISIT Follow-up Depression/Anxiety PLAN OF CARE Activity Details Follow Up 3 Weeks Reason: Follow-up VITAL SIGNS MEDICATIONS Unknown Medications RESULTS No Results PROCEDURES Procedure Date Ordered Result Body Site Psychotherapy, patient &/family, 45 minutes, established patient Oct 13, 2017 INSTRUCTIONS MEDICATIONS ADMINISTERED No Known Medications MEDICAL (GENERAL) HISTORY Type Description Date Medical History GERD Medical History anxiety Medical History depression Surgical History C- section x 2 Surgical History tubal ligation Surgical History hysterectomy 2008 Surgical History cholecystectomy 2013 Surgical History Fibroid removal Hospitalization History inpatient treatment Mirtha SMITH 21 years old Hospitalization History surgeries
--- OUTSIDE RECORDS SUMMARY | 2019-01-13 22:11 | XMS REPORT | Continuity of Care Document ---
Author Author [facility] Address Unknown Phone Unavailable Allergies Active Description Code Type Severity Reaction Onset Reported/Identified Relationship to Patient Clinical Status Yes latex [id number] Drug Allergy Unknown N/A 05/07/2006 Yes latex OA N/A N/A 12/08/2008 Yes latex OA 12/08/2008 Yes Zoloft Drug Allergy N/A N/A 12/19/2010 Yes Zoloft Drug Allergy 12/19/2010 Yes citalopram 20 mg tablet Drug Allergy N/A N/A 01/11/2014 Yes NSAIDS (Non-Steroidal Anti-Inflamma [id number] Drug Allergy Unknown N/A Medications There is no data. Problems Date Dx Coded Attending Type Code Diagnosis Diagnosed By 09/29/2008 LE PADMINI PERSON 296.31 MAJOR DEPRESSIVE AFFECTIVE DISORDER RECURRENT EPISODE MILD DEGREE 09/29/2008 296.31 MAJOR DEPRESSIVE AFFECTIVE DISORDER RECURRENT EPISODE MILD DEGREE 09/29/2008 PADMINI AMEZCUA 296.31 MAJOR DEPRESSIVE AFFECTIVE DISORDER RECURRENT EPISODE MILD DEGREE 09/29/2008 296.31 MAJOR DEPRESSIVE AFFECTIVE DISORDER RECURRENT EPISODE MILD DEGREE 09/29/2008 296.31 MAJOR DEPRESSIVE AFFECTIVE DISORDER RECURRENT EPISODE MILD DEGREE 09/29/2008 MALACHI NINO APRN 296.31 MAJOR DEPRESSIVE AFFECTIVE DISORDER RECURRENT EPISODE MILD DEGREE 09/29/2008 296.31 MAJOR DEPRESSIVE AFFECTIVE DISORDER RECURRENT EPISODE MILD DEGREE 09/29/2008 PADMINI AMEZCUA 296.31 MAJOR DEPRESSIVE AFFECTIVE DISORDER RECURRENT EPISODE MILD DEGREE 09/29/2008 296.31 MAJOR DEPRESSIVE AFFECTIVE DISORDER RECURRENT EPISODE MILD DEGREE 09/29/2008 296.31 MAJOR DEPRESSIVE AFFECTIVE DISORDER RECURRENT EPISODE MILD DEGREE 09/29/2008 296.31 MAJOR DEPRESSIVE AFFECTIVE DISORDER RECURRENT EPISODE MILD DEGREE 09/29/2008 296.31 MAJOR DEPRESSIVE AFFECTIVE DISORDER RECURRENT EPISODE MILD DEGREE 09/29/2008 296.31 MAJOR DEPRESSIVE AFFECTIVE DISORDER RECURRENT EPISODE MILD DEGREE 09/29/2008 296.31 MAJOR DEPRESSIVE AFFECTIVE DISORDER RECURRENT EPISODE MILD DEGREE 09/29/2008 296.31 MAJOR DEPRESSIVE AFFECTIVE DISORDER RECURRENT EPISODE MILD DEGREE 09/29/2008 296.31 MAJOR DEPRESSIVE AFFECTIVE DISORDER RECURRENT EPISODE MILD DEGREE 09/29/2008 [facility], PADMINI R 296.31 MAJOR DEPRESSIVE AFFECTIVE DISORDER RECURRENT EPISODE MILD DEGREE 09/29/2008 [facility] 296.31 MAJOR DEPRESSIVE AFFECTIVE DISORDER RECURRENT EPISODE MILD DEGREE 09/29/2008 [facility] P[facility] R 296.31 MAJOR DEPRESSIVE AFFECTIVE DISORDER RECURRENT EPISODE MILD DEGREE 09/29/2008 [facility], P[facility] R 296.31 MAJOR DEPRESSIVE AFFECTIVE DISORDER RECURRENT EPISODE MILD DEGREE 09/29/2008 [facility] P[facility] R 296.31 MAJOR DEPRESSIVE AFFECTIVE DISORDER RECURRENT EPISODE MILD DEGREE 09/29/2008 [facility] P[facility] R 296.31 MAJOR DEPRESSIVE AFFECTIVE DISORDER RECURRENT EPISODE MILD DEGREE 09/29/2008 FIDEL WESTFALL MD 296.31 MAJOR DEPRESSIVE AFFECTIVE DISORDER RECURRENT EPISODE MILD DEGREE 09/29/2008 [facility] P[facility] 296.31 MAJOR DEPRESSIVE AFFECTIVE DISORDER RECURRENT EPISODE MILD DEGREE 09/29/2008 [facility], PADMINI R 296.31 MAJOR DEPRESSIVE AFFECTIVE DISORDER RECURRENT EPISODE MILD DEGREE 09/29/2008 FIDEL WESTFALL MD 296.31 MAJOR DEPRESSIVE AFFECTIVE DISORDER RECURRENT EPISODE MILD DEGREE 09/29/2008 [facility] R 296.31 MAJOR DEPRESSIVE AFFECTIVE DISORDER RECURRENT EPISODE MILD DEGREE 09/29/2008 [facility], PADMIN[facility] R 296.31 MAJOR DEPRESSIVE AFFECTIVE DISORDER RECURRENT EPISODE MILD DEGREE 09/29/2008 FIDEL WESTFALL MD 296.31 MAJOR DEPRESSIVE AFFECTIVE DISORDER RECURRENT EPISODE MILD DEGREE 09/29/2008 YURI PARISI APRN 296.31 MAJOR DEPRESSIVE AFFECTIVE DISORDER RECURRENT EPISODE MILD DEGREE 09/29/2008 [facility], P[facility] R 296.31 MAJOR DEPRESSIVE AFFECTIVE DISORDER RECURRENT EPISODE MILD DEGREE 09/29/2008 [facility], PADMINI R 296.31 MAJOR DEPRESSIVE AFFECTIVE DISORDER RECURRENT EPISODE MILD DEGREE 09/29/2008 [facility], PADMINI R 296.31 MAJOR DEPRESSIVE AFFECTIVE DISORDER RECURRENT EPISODE MILD DEGREE 09/29/2008 [facility], PADMINI R 296.31 MAJOR DEPRESSIVE AFFECTIVE DISORDER RECURRENT EPISODE MILD DEGREE 09/29/2008 [facility], PADMIN[facility] R 296.31 MAJOR DEPRESSIVE AFFECTIVE DISORDER RECURRENT EPISODE MILD DEGREE 09/29/2008 GRETCHEN ROTHMAN MD 296.31 MAJOR DEPRESSIVE AFFECTIVE DISORDER RECURRENT EPISODE MILD DEGREE 09/29/2008 FIDEL WESTFALL MD 296.31 MAJOR DEPRESSIVE AFFECTIVE DISORDER RECURRENT EPISODE MILD DEGREE 10/27/2008 [facility], PADMINI R 300.00 AN ANXIETY UNSPEC 10/27/2008 [facility], PADMINI R 311 MO DEPRESSIVE DISORDER NOS 10/27/2008 300.00 AN ANXIETY UNSPEC 10/27/2008 311 MO DEPRESSIVE DISORDER NOS 10/27/2008 [facility], PADMINI R 300.00 AN ANXIETY UNSPEC 10/27/2008 [facility], PADMINI R 311 MO DEPRESSIVE DISORDER NOS 10/27/2008 300.00 AN ANXIETY UNSPEC 10/27/2008 311 MO DEPRESSIVE DISORDER NOS 10/27/2008 300.00 AN ANXIETY UNSPEC 10/27/2008 311 MO DEPRESSIVE DISORDER NOS 10/27/2008 MALACHI NINO APRN 300.00 AN ANXIETY UNSPEC 10/27/2008 MALACHI NINO APRN 311 MO DEPRESSIVE DISORDER NOS 10/27/2008 300.00 AN ANXIETY UNSPEC 10/27/2008 311 MO DEPRESSIVE DISORDER NOS 10/27/2008 [facility] AN ANXIETY UNSPEC 10/27/2008 [facility], PADMINI R 311 MO DEPRESSIVE DISORDER NOS 10/27/2008 300.00 AN ANXIETY UNSPEC 10/27/2008 311 MO DEPRESSIVE DISORDER NOS 10/27/2008 300.00 AN ANXIETY UNSPEC 10/27/2008 311 MO DEPRESSIVE DISORDER NOS 10/27/2008 300.00 AN ANXIETY UNSPEC 10/27/2008 311 MO DEPRESSIVE DISORDER NOS 10/27/2008 300.00 AN ANXIETY UNSPEC 10/27/2008 311 MO DEPRESSIVE DISORDER NOS 10/27/2008 300.00 AN ANXIETY UNSPEC 10/27/2008 311 MO DEPRESSIVE DISORDER NOS 10/27/2008 300.00 AN ANXIETY UNSPEC 10/27/2008 311 MO DEPRESSIVE DISORDER NOS 10/27/2008 300.00 AN ANXIETY UNSPEC 10/27/2008 311 MO DEPRESSIVE DISORDER NOS 10/27/2008 300.00 AN ANXIETY UNSPEC 10/27/2008 311 MO DEPRESSIVE DISORDER NOS 10/27/2008 [facility].00 AN ANXIETY UNSPEC 10/27/2008 [facility] 311 MO DEPRESSIVE DISORDER NOS 10/27/2008 [facility] 300.00 AN ANXIETY UNSPEC 10/27/2008 [facility] 311 MO DEPRESSIVE DISORDER NOS 10/27/2008 [facility] 300.00 AN ANXIETY UNSPEC 10/27/2008 [facility], PADMINI R 311 MO DEPRESSIVE DISORDER NOS 10/27/2008 [facility], PADMINI R 300.00 AN ANXIETY UNSPEC 10/27/2008 [facility], PADMINI R 311 MO DEPRESSIVE DISORDER NOS 10/27/2008 [facility], PADMINI R 300.00 AN ANXIETY UNSPEC 10/27/2008 [facility], PADMINI R 311 MO DEPRESSIVE DISORDER NOS 10/27/2008 [facility], PADMINI R 300.00 AN ANXIETY UNSPEC 10/27/2008 [facility] 311 MO DEPRESSIVE DISORDER NOS 10/27/2008 FIDEL WESFTALL MD 300.00 AN ANXIETY UNSPEC 10/27/2008 FIDEL WESTFALL MD 311 MO DEPRESSIVE DISORDER NOS 10/27/2008 [facility], PADMINI R 300.00 AN ANXIETY UNSPEC 10/27/2008 [facility], PADMINI R 311 MO DEPRESSIVE DISORDER NOS 10/27/2008 [facility], PADMINI R 300.00 AN ANXIETY UNSPEC 10/27/2008 [facility], PADMINI R 311 MO DEPRESSIVE DISORDER NOS 10/27/2008 FIDEL WESTFALL MD 300.00 AN ANXIETY UNSPEC 10/27/2008 FIDEL WESTFALL MD 311 MO DEPRESSIVE DISORDER NOS 10/27/2008 [facility], PADMINI R 300.00 AN ANXIETY UNSPEC 10/27/2008 [facility], PADMINI R 311 MO DEPRESSIVE DISORDER NOS 10/27/2008 [facility], PADMINI R 300.00 AN ANXIETY UNSPEC 10/27/2008 [facility], PADMINI R 311 MO DEPRESSIVE DISORDER NOS 10/27/2008 FIDEL WESTFALL MD N 300.00 AN ANXIETY UNSPEC 10/27/2008 FIDEL WESTFALL MD 311 MO DEPRESSIVE DISORDER NOS 10/27/2008 YURI PARISI APRN A 300.00 AN ANXIETY UNSPEC 10/27/2008 YURI PARISI APRN A 311 MO DEPRESSIVE DISORDER NOS 10/27/2008 [facility], PADMINI R 300.00 AN ANXIETY UNSPEC 10/27/2008 [facility], PADMINI R 311 MO DEPRESSIVE DISORDER NOS 10/27/2008 [facility], PADMINI R 300.00 AN ANXIETY UNSPEC 10/27/2008 [facility], PADMINI R 311 MO DEPRESSIVE DISORDER NOS 10/27/2008 [facility], PADMINI R 300.00 AN ANXIETY UNSPEC 10/27/2008 [facility], PADMINI R 311 MO DEPRESSIVE DISORDER NOS 10/27/2008 [facility], PADMINI R 300.00 AN ANXIETY UNSPEC 10/27/2008 [facility] 311 MO DEPRESSIVE DISORDER NOS 10/27/2008 [facility], PADMINI R 300.00 AN ANXIETY UNSPEC 10/27/2008 [facility], P[facility] R 311 MO DEPRESSIVE DISORDER NOS 10/27/2008 GRETCHEN ROTHMAN MD 300.00 AN ANXIETY UNSPEC 10/27/2008 GRETCHEN ROTHMAN MD 311 MO DEPRESSIVE DISORDER NOS 10/27/2008 FIDEL WESTFALL MD N 300.00 AN ANXIETY UNSPEC 10/27/2008 FIDEL WESTFALL MD N 311 MO DEPRESSIVE DISORDER NOS 10/30/2008 [facility], PADMINI R 296.32 MAJOR DEPRESSIVE AFFECTIVE DISORDER RECURRENT EPISODE MODERATE DEGREE 10/30/2008 296.32 MAJOR DEPRESSIVE AFFECTIVE DISORDER RECURRENT EPISODE MODERATE DEGREE 10/30/2008 [facility] 296.32 MAJOR DEPRESSIVE AFFECTIVE DISORDER RECURRENT EPISODE MODERATE DEGREE 10/30/2008 296.32 MAJOR DEPRESSIVE AFFECTIVE DISORDER RECURRENT EPISODE MODERATE DEGREE 10/30/2008 296.32 MAJOR DEPRESSIVE AFFECTIVE DISORDER RECURRENT EPISODE MODERATE DEGREE 10/30/2008 MALACHI NINO APRN 296.32 MAJOR DEPRESSIVE AFFECTIVE DISORDER RECURRENT EPISODE MODERATE DEGREE 10/30/2008 296.32 MAJOR DEPRESSIVE AFFECTIVE DISORDER RECURRENT EPISODE MODERATE DEGREE 10/30/2008 [facility] 296.32 MAJOR DEPRESSIVE AFFECTIVE DISORDER RECURRENT EPISODE MODERATE DEGREE 10/30/2008 296.32 MAJOR DEPRESSIVE AFFECTIVE DISORDER RECURRENT EPISODE MODERATE DEGREE 10/30/2008 296.32 MAJOR DEPRESSIVE AFFECTIVE DISORDER RECURRENT EPISODE MODERATE DEGREE 10/30/2008 296.32 MAJOR DEPRESSIVE AFFECTIVE DISORDER RECURRENT EPISODE MODERATE DEGREE 10/30/2008 296.32 MAJOR DEPRESSIVE AFFECTIVE DISORDER RECURRENT EPISODE MODERATE DEGREE 10/30/2008 296.32 MAJOR DEPRESSIVE AFFECTIVE DISORDER RECURRENT EPISODE MODERATE DEGREE 10/30/2008 296.32 MAJOR DEPRESSIVE AFFECTIVE DISORDER RECURRENT EPISODE MODERATE DEGREE 10/30/2008 296.32 MAJOR DEPRESSIVE AFFECTIVE DISORDER RECURRENT EPISODE MODERATE DEGREE 10/30/2008 296.32 MAJOR DEPRESSIVE AFFECTIVE DISORDER RECURRENT EPISODE MODERATE DEGREE 10/30/2008 [facility] 296.32 MAJOR DEPRESSIVE AFFECTIVE DISORDER RECURRENT EPISODE MODERATE DEGREE 10/30/2008 [facility] 296.32 MAJOR DEPRESSIVE AFFECTIVE DISORDER RECURRENT EPISODE MODERATE DEGREE 10/30/2008 [facility] 296.32 MAJOR DEPRESSIVE AFFECTIVE DISORDER RECURRENT EPISODE MODERATE DEGREE 10/30/2008 [facility], PADMINI R 296.32 MAJOR DEPRESSIVE AFFECTIVE DISORDER RECURRENT EPISODE MODERATE DEGREE 10/30/2008 [facility], PADMINI R 296.32 MAJOR DEPRESSIVE AFFECTIVE DISORDER RECURRENT EPISODE MODERATE DEGREE 10/30/2008 [facility], PADMINI R 296.32 MAJOR DEPRESSIVE AFFECTIVE DISORDER RECURRENT EPISODE MODERATE DEGREE 10/30/2008 FIDEL WESTFALL MD 296.32 MAJOR DEPRESSIVE AFFECTIVE DISORDER RECURRENT EPISODE MODERATE DEGREE 10/30/2008 [facility], PADMINI R 296.32 MAJOR DEPRESSIVE AFFECTIVE DISORDER RECURRENT EPISODE MODERATE DEGREE 10/30/2008 [facility], PADMINI R 296.32 MAJOR DEPRESSIVE AFFECTIVE DISORDER RECURRENT EPISODE MODERATE DEGREE 10/30/2008 FIDEL WESTFALL MD 296.32 MAJOR DEPRESSIVE AFFECTIVE DISORDER RECURRENT EPISODE MODERATE DEGREE 10/30/2008 [facility], PADMINI R 296.32 MAJOR DEPRESSIVE AFFECTIVE DISORDER RECURRENT EPISODE MODERATE DEGREE 10/30/2008 [facility] 296.32 MAJOR DEPRESSIVE AFFECTIVE DISORDER RECURRENT EPISODE MODERATE DEGREE 10/30/2008 FIDEL WESTFALL MD 296.32 MAJOR DEPRESSIVE AFFECTIVE DISORDER RECURRENT EPISODE MODERATE DEGREE 10/30/2008 YURI PARISI APRN 296.32 MAJOR DEPRESSIVE AFFECTIVE DISORDER RECURRENT EPISODE MODERATE DEGREE 10/30/2008 [facility], PADMINI R 296.32 MAJOR DEPRESSIVE AFFECTIVE DISORDER RECURRENT EPISODE MODERATE DEGREE 10/30/2008 [facility], PADMINI R 296.32 MAJOR DEPRESSIVE AFFECTIVE DISORDER RECURRENT EPISODE MODERATE DEGREE 10/30/2008 [facility], PADMINI R 296.32 MAJOR DEPRESSIVE AFFECTIVE DISORDER RECURRENT EPISODE MODERATE DEGREE 10/30/2008 [facility], PADMINI R 296.32 MAJOR DEPRESSIVE AFFECTIVE DISORDER RECURRENT EPISODE MODERATE DEGREE 10/30/2008 [facility] 296.32 MAJOR DEPRESSIVE AFFECTIVE DISORDER RECURRENT EPISODE MODERATE DEGREE 10/30/2008 GRETCHEN ROTHMAN MD 296.32 MAJOR DEPRESSIVE AFFECTIVE DISORDER RECURRENT EPISODE MODERATE DEGREE 10/30/2008 FIDEL WESTFALL MD 296.32 MAJOR DEPRESSIVE AFFECTIVE DISORDER RECURRENT EPISODE MODERATE DEGREE 12/08/2008 [facility], PADMINI R 784.0 headache 12/08/2008 784.0 headache 12/08/2008 [facility], PADMINI R 784.0 headache 12/08/2008 784.0 headache 12/08/2008 784.0 headache 12/08/2008 [employer], MALACHI R 784.0 headache 12/08/2008 784.0 Headache 12/08/2008 [facility], PADMINI R 784.0 Headache 12/08/2008 784.0 Headache 12/08/2008 784.0 Headache 12/08/2008 784.0 Headache 12/08/2008 784.0 Headache 12/08/2008 784.0 Headache 12/08/2008 784.0 Headache 12/08/2008 784.0 Headache 12/08/2008 784.0 Headache 12/08/2008 [facility], PADMINI R 784.0 Headache 12/08/2008 [facility], PADMINI R 784.0 Headache 12/08/2008 [facility], PADMINI R 784.0 Headache 12/08/2008 [facility], PADMINI R 784.0 Headache 12/08/2008 [facility], PADMINI R 784.0 Headache 12/08/2008 [facility], PADMINI R 784.0 Headache 12/08/2008 KHOI SMITH, FIDEL N 784.0 Headache 12/08/2008 [facility], PADMINI R 784.0 Headache 12/08/2008 [facility], PADMINI R 784.0 Headache 12/08/2008 KHOI SMITH, FIDEL N 784.0 Headache 12/08/2008 [facility], PADMINI R 784.0 Headache 12/08/2008 [facility], PADMINI R 784.0 Headache 12/08/2008 KHOI SMITH, FIDEL N 784.0 Headache 12/08/2008 AILIN CAMARGO, YURI A 784.0 Headache 12/08/2008 [facility], PADMINI R 784.0 Headache 12/08/2008 [facility], PADMINI R 784.0 Headache 12/08/2008 [facility], PADMINI R 784.0 Headache 12/08/2008 [facility], PADMINI R 784.0 Headache 12/08/2008 [facility], PADMINI R 784.0 Headache 12/08/2008 GRETCHEN ROTHMAN MD 784.0 Headache 12/08/2008 KHOI SMITH, FIDEL N 784.0 Headache 12/12/2008 [facility], PADMINI R 625.3 severe menstrual pain (dysmenorrhea) 12/12/2008 [facility], PADMINI R 626.8 DYSFUNCTIONAL UTERINE BLEEDING 12/12/2008 [facility], PADMINI R 626.9 menses abnormal 12/12/2008 625.3 severe menstrual pain (dysmenorrhea) 12/12/2008 626.8 DYSFUNCTIONAL UTERINE BLEEDING 12/12/2008 626.9 menses abnormal 12/12/2008 [facility], PADMINI R 625.3 severe menstrual pain (dysmenorrhea) 12/12/2008 [facility], PADMINI R 626.8 DYSFUNCTIONAL UTERINE BLEEDING 12/12/2008 [facility], PADMINI R 626.9 menses abnormal 12/12/2008 625.3 severe menstrual pain (dysmenorrhea) 12/12/2008 626.8 DYSFUNCTIONAL UTERINE BLEEDING 12/12/2008 626.9 menses abnormal 12/12/2008 625.3 severe menstrual pain (dysmenorrhea) 12/12/2008 626.8 DYSFUNCTIONAL UTERINE BLEEDING 12/12/2008 626.9 menses abnormal 12/12/2008 MAE NINO APRNIA R 625.3 severe menstrual pain (dysmenorrhea) 12/12/2008 TRUNG CAMARGO MALACHI R 626.8 DYSFUNCTIONAL UTERINE BLEEDING 12/12/2008 MAE NINO APRNIA R 626.9 menses abnormal 12/12/2008 625.3 severe menstrual pain (dysmenorrhea) 12/12/2008 626.8 DYSFUNCTIONAL UTERINE BLEEDING 12/12/2008 626.9 menses abnormal 12/12/2008 [facility], PADMINI R 625.3 severe menstrual pain (dysmenorrhea) 12/12/2008 [facility], PADMINI R 626.8 DYSFUNCTIONAL UTERINE BLEEDING 12/12/2008 [facility], PADMINI R 626.9 menses abnormal 12/12/2008 625.3 severe menstrual pain (dysmenorrhea) 12/12/2008 626.8 DYSFUNCTIONAL UTERINE BLEEDING 12/12/2008 626.9 menses abnormal 12/12/2008 625.3 severe menstrual pain (dysmenorrhea) 12/12/2008 626.8 DYSFUNCTIONAL UTERINE BLEEDING 12/12/2008 626.9 menses abnormal 12/12/2008 625.3 severe menstrual pain (dysmenorrhea) 12/12/2008 626.8 DYSFUNCTIONAL UTERINE BLEEDING 12/12/2008 626.9 menses abnormal 12/12/2008 625.3 severe menstrual pain (dysmenorrhea) 12/12/2008 626.8 DYSFUNCTIONAL UTERINE BLEEDING 12/12/2008 626.9 menses abnormal 12/12/2008 625.3 severe menstrual pain (dysmenorrhea) 12/12/2008 626.8 DYSFUNCTIONAL UTERINE BLEEDING 12/12/2008 626.9 menses abnormal 12/12/2008 625.3 severe menstrual pain (dysmenorrhea) 12/12/2008 626.8 DYSFUNCTIONAL UTERINE BLEEDING 12/12/2008 626.9 menses abnormal 12/12/2008 625.3 severe menstrual pain (dysmenorrhea) 12/12/2008 626.8 DYSFUNCTIONAL UTERINE BLEEDING 12/12/2008 626.9 menses abnormal 12/12/2008 625.3 severe menstrual pain (dysmenorrhea) 12/12/2008 626.8 DYSFUNCTIONAL UTERINE BLEEDING 12/12/2008 626.9 menses abnormal 12/12/2008 [facility], PADMINI R 625.3 severe menstrual pain (dysmenorrhea) 12/12/2008 [facility], PADMINI R 626.8 DYSFUNCTIONAL UTERINE BLEEDING 12/12/2008 [facility], PADMINI R 626.9 menses abnormal 12/12/2008 [facility], PADMINI R 625.3 severe menstrual pain (dysmenorrhea) 12/12/2008 [facility], PADMINI R 626.8 DYSFUNCTIONAL UTERINE BLEEDING 12/12/2008 [facility], PADMINI R 626.9 menses abnormal 12/12/2008 [facility], PADMINI R 625.3 severe menstrual pain (dysmenorrhea) 12/12/2008 [facility], PADMINI R 626.8 DYSFUNCTIONAL UTERINE BLEEDING 12/12/2008 [facility], PADMINI R 626.9 menses abnormal 12/12/2008 [facility], PADMINI R 625.3 severe menstrual pain (dysmenorrhea) 12/12/2008 [facility], PADMINI R 626.8 DYSFUNCTIONAL UTERINE BLEEDING 12/12/2008 [facility], PADMINI R 626.9 menses abnormal 12/12/2008 [facility], PADMINI R 625.3 severe menstrual pain (dysmenorrhea) 12/12/2008 [facility], PADMINI R 626.8 DYSFUNCTIONAL UTERINE BLEEDING 12/12/2008 [facility], PADMINI R 626.9 menses abnormal 12/12/2008 [facility], PADMINI R 625.3 severe menstrual pain (dysmenorrhea) 12/12/2008 [facility], PADMINI R 626.8 DYSFUNCTIONAL UTERINE BLEEDING 12/12/2008 [facility], PADMINI R 626.9 menses abnormal 12/12/2008 FIDEL WESTFALL MD N 625.3 SEVERE MENSTRUAL PAIN (DYSMENORRHEA) 12/12/2008 FIDEL WESTFALL MD N 626.8 DYSFUNCTIONAL UTERINE BLEEDING 12/12/2008 FIDEL WESTFALL MD N 626.9 MENSES ABNORMAL 12/12/2008 [facility], PADMINI R 625.3 SEVERE MENSTRUAL PAIN (DYSMENORRHEA) 12/12/2008 [facility], PADMINI R 626.8 DYSFUNCTIONAL UTERINE BLEEDING 12/12/2008 [facility], PADMINI R 626.9 MENSES ABNORMAL 12/12/2008 [facility], PADMINI R 625.3 SEVERE MENSTRUAL PAIN (DYSMENORRHEA) 12/12/2008 [facility], PADMINI R 626.8 DYSFUNCTIONAL UTERINE BLEEDING 12/12/2008 [facility], PADMINI R 626.9 MENSES ABNORMAL 12/12/2008 FIDEL WESTFALL MD N 625.3 SEVERE MENSTRUAL PAIN (DYSMENORRHEA) 12/12/2008 FIDEL WESTFALL MD N 626.8 DYSFUNCTIONAL UTERINE BLEEDING 12/12/2008 FIDEL WESTFALL MD N 626.9 MENSES ABNORMAL 12/12/2008 [facility], PADMINI R 625.3 SEVERE MENSTRUAL PAIN (DYSMENORRHEA) 12/12/2008 [facility], PADMINI R 626.8 DYSFUNCTIONAL UTERINE BLEEDING 12/12/2008 [facility], PADMINI R 626.9 MENSES ABNORMAL 12/12/2008 [facility], PADMINI R 625.3 SEVERE MENSTRUAL PAIN (DYSMENORRHEA) 12/12/2008 [facility], PADMINI R 626.8 DYSFUNCTIONAL UTERINE BLEEDING 12/12/2008 [facility], PADMINI R 626.9 MENSES ABNORMAL 12/12/2008 FIDEL WESTFALL MD N 625.3 SEVERE MENSTRUAL PAIN (DYSMENORRHEA) 12/12/2008 FIDEL WESTFALL MD N 626.8 DYSFUNCTIONAL UTERINE BLEEDING 12/12/2008 FIDEL WESTFALL MD N 626.9 MENSES ABNORMAL 12/12/2008 AILIN [employer], YURI A 625.3 SEVERE MENSTRUAL PAIN (DYSMENORRHEA) 12/12/2008 [employer]ILIN [employer], YURI A 626.8 DYSFUNCTIONAL UTERINE BLEEDING 12/12/2008 AILIN [employer], YURI A 626.9 MENSES ABNORMAL 12/12/2008 [facility], PADMINI R 625.3 SEVERE MENSTRUAL PAIN (DYSMENORRHEA) 12/12/2008 [facility], PADMINI R 626.8 DYSFUNCTIONAL UTERINE BLEEDING 12/12/2008 [facility], PADMINI R 626.9 MENSES ABNORMAL 12/12/2008 [facility], PADMINI R 625.3 SEVERE MENSTRUAL PAIN (DYSMENORRHEA) 12/12/2008 [facility], PADMINI R 626.8 DYSFUNCTIONAL UTERINE BLEEDING 12/12/2008 [facility], PADMINI R 626.9 MENSES ABNORMAL 12/12/2008 [facility], PADMINI R 625.3 SEVERE MENSTRUAL PAIN (DYSMENORRHEA) 12/12/2008 [facility], PADMINI R 626.8 DYSFUNCTIONAL UTERINE BLEEDING 12/12/2008 [facility], PADMINI R 626.9 MENSES ABNORMAL 12/12/2008 [facility], PADMINI R 625.3 SEVERE MENSTRUAL PAIN (DYSMENORRHEA) 12/12/2008 [facility], PADMINI R 626.8 DYSFUNCTIONAL UTERINE BLEEDING 12/12/2008 [facility], PADMINI R 626.9 MENSES ABNORMAL 12/12/2008 [facility], PADMINI R 625.3 SEVERE MENSTRUAL PAIN (DYSMENORRHEA) 12/12/2008 [facility], PADMINI R 626.8 DYSFUNCTIONAL UTERINE BLEEDING 12/12/2008 [facility], PADMINI R 626.9 MENSES ABNORMAL 12/12/2008 GRETCHEN ROTHMAN MD 625.3 SEVERE MENSTRUAL PAIN (DYSMENORRHEA) 12/12/2008 GRETCHEN ROTHMAN MD 626.8 DYSFUNCTIONAL UTERINE BLEEDING 12/12/2008 GRETCHEN ROTHMAN MD 626.9 MENSES ABNORMAL 12/12/2008 FIDEL WESTFALL MD 625.3 SEVERE MENSTRUAL PAIN (DYSMENORRHEA) 12/12/2008 FIDEL WESTFALL MD 626.8 DYSFUNCTIONAL UTERINE BLEEDING 12/12/2008 FIDEL WESTFALL MD 626.9 MENSES ABNORMAL 06/28/2009 [facility], PADMINI R 307.81 TENSION HEADACHE 06/28/2009 307.81 TENSION HEADACHE 06/28/2009 [facility], PADMINI R 307.81 TENSION HEADACHE 06/28/2009 307.81 TENSION HEADACHE 06/28/2009 307.81 TENSION HEADACHE 06/28/2009 MALACHI NINO APRN 307.81 TENSION HEADACHE 06/28/2009 307.81 TENSION HEADACHE 06/28/2009 [facility], PADMINI R 307.81 TENSION HEADACHE 06/28/2009 307.81 TENSION HEADACHE 06/28/2009 307.81 TENSION HEADACHE 06/28/2009 307.81 TENSION HEADACHE 06/28/2009 307.81 TENSION HEADACHE 06/28/2009 307.81 TENSION HEADACHE 06/28/2009 307.81 TENSION HEADACHE 06/28/2009 307.81 TENSION HEADACHE 06/28/2009 307.81 TENSION HEADACHE 06/28/2009 [facility], PADMINI R 307.81 TENSION HEADACHE 06/28/2009 [facility], PADMIN[facility] 307.81 T[facility]ION HEADACHE 06/28/[facility] 307.81 TENSION HEADACHE 06/28/2009 [facility], PADMINI R 307.81 TENSION HEADACHE 06/28/2009 [facility], PADMINI R 307.81 TENSION HEADACHE 06/28/2009 [facility], PADMINI R 307.81 TENSION HEADACHE 06/28/2009 FIDEL WESTFALL MD 307.81 TENSION HEADACHE 06/28/2009 [facility], PADMINI R 307.81 TENSION HEADACHE 06/28/2009 [facility], PADMINI R 307.81 TENSION HEADACHE 06/28/2009 FIDEL WESTFALL MD 307.81 TENSION HEADACHE 06/28/2009 [facility], PADMINI R 307.81 TENSION HEADACHE 06/28/2009 [facility], PADMINI R 307.81 TENSION HEADACHE 06/28/2009 FIDEL WESTFALL MD 307.81 TENSION HEADACHE 06/28/2009 YURI PARISI APRN 307.81 TENSION HEADACHE 06/28/2009 [facility], PADMINI R 307.81 TENSION HEADACHE 06/28/2009 [facility], PADMINI R 307.81 TENSION HEADACHE 06/28/2009 [facility], PADMINI R 307.81 TENSION HEADACHE 06/28/2009 [facility], PADMINI R 307.81 TENSION HEADACHE 06/28/2009 [facility], PADMINI R 307.81 TENSION HEADACHE 06/28/2009 STEPHAN SMITH, GRETCHEN 307.81 TENSION HEADACHE 06/28/2009 KHOI SMITH, FIDEL Moya 307.81 TENSION HEADACHE 09/04/2009 [facility], PADMINI R 840.9 SPRAIN/STRAIN SHOULDER/ARM 09/04/2009 840.9 SPRAIN/STRAIN SHOULDER/ARM 09/04/2009 [facility], PADMINI R 840.9 SPRAIN/STRAIN SHOULDER/ARM 09/04/2009 840.9 SPRAIN/STRAIN SHOULDER/ARM 09/04/2009 840.9 SPRAIN/STRAIN SHOULDER/ARM 09/04/2009 MALACHI NINO APRN R 840.9 SPRAIN/STRAIN SHOULDER/ARM 09/04/2009 840.9 SPRAIN/STRAIN SHOULDER/ARM 09/04/2009 [facility], PADMINI R 840.9 SPRAIN/STRAIN SHOULDER/ARM 09/04/2009 840.9 SPRAIN/STRAIN SHOULDER/ARM 09/04/2009 840.9 SPRAIN/STRAIN SHOULDER/ARM 09/04/2009 840.9 SPRAIN/STRAIN SHOULDER/ARM 09/04/2009 840.9 SPRAIN/STRAIN SHOULDER/ARM 09/04/2009 840.9 SPRAIN/STRAIN SHOULDER/ARM 09/04/2009 840.9 SPRAIN/STRAIN SHOULDER/ARM 09/04/2009 840.9 SPRAIN/STRAIN SHOULDER/ARM 09/04/2009 840.9 SPRAIN/STRAIN SHOULDER/ARM 09/04/2009 [facility], PADMINI R 840.9 SPRAIN/STRAIN SHOULDER/ARM 09/04/2009 [facility], PADMINI R 840.9 SPRAIN/STRAIN SHOULDER/ARM 09/04/2009 [facility], PADMINI R 840.9 SPRAIN/STRAIN SHOULDER/ARM 09/04/2009 [facility], PADMINI R 840.9 SPRAIN/STRAIN SHOULDER/ARM 09/04/2009 [facility], PADMINI R 840.9 SPRAIN/STRAIN SHOULDER/ARM 09/04/2009 [facility], PADMINI R 840.9 SPRAIN/STRAIN SHOULDER/ARM 09/04/2009 KHOI SMITH, FIDEL N 840.9 SPRAIN/STRAIN SHOULDER/ARM 09/04/2009 [facility], PADMINI R 840.9 SPRAIN/STRAIN SHOULDER/ARM 09/04/2009 [facility], PADMINI R 840.9 SPRAIN/STRAIN SHOULDER/ARM 09/04/2009 KHOI SMITH, FIDLE N 840.9 SPRAIN/STRAIN SHOULDER/ARM 09/04/2009 [facility], PADMINI R 840.9 SPRAIN/STRAIN SHOULDER/ARM 09/04/2009 [facility], PADMINI R 840.9 SPRAIN/STRAIN SHOULDER/ARM 09/04/2009 HKOI SMITH, FIDEL N 840.9 SPRAIN/STRAIN SHOULDER/ARM 09/04/2009 YURI PARISI APRN A 840.9 SPRAIN/STRAIN SHOULDER/ARM 09/04/2009 [facility], PADMINI R 840.9 SPRAIN/STRAIN SHOULDER/ARM 09/04/2009 [facility], PADMINI R 840.9 SPRAIN/STRAIN SHOULDER/ARM 09/04/2009 [facility], PADMINI R 840.9 SPRAIN/STRAIN SHOULDER/ARM 09/04/2009 [facility], PADMINI R 840.9 SPRAIN/STRAIN SHOULDER/ARM 09/04/2009 [facility], PADMINI R 840.9 SPRAIN/STRAIN SHOULDER/ARM 09/04/2009 STEPHAN SMITH, GRETCHEN 840.9 SPRAIN/STRAIN SHOULDER/ARM 09/04/2009 KHOI SMITH, FIDEL N 840.9 SPRAIN/STRAIN SHOULDER/ARM 03/04/2010 [facility], PADMINI R 723.1 CERVICALGIA 03/04/2010 [facility], PADMINI R 723.4 BRACHIA NEURITIS OR RADICULITIS NOS 03/04/2010 723.1 CERVICALGIA 03/04/2010 723.4 BRACHIA NEURITIS OR RADICULITIS NOS 03/04/2010 [facility], PADMINI R 723.1 CERVICALGIA 03/04/2010 [facility], PADMINI R 723.4 BRACHIA NEURITIS OR RADICULITIS NOS 03/04/2010 723.1 CERVICALGIA 03/04/2010 723.4 BRACHIA NEURITIS OR RADICULITIS NOS 03/04/2010 723.1 CERVICALGIA 03/04/2010 723.4 BRACHIA NEURITIS OR RADICULITIS NOS 03/04/2010 NINO [employer]MATORY WORKER, MALACHI R 723.1 CERVICALGIA 03/04/2010 NINO PET CREMATORY WORKER, MALACHI R 723.4 BRACHIA NEURITIS OR RADICULITIS NOS 03/04/2010 723.1 CERVICALGIA 03/04/2010 723.4 BRACHIA NEURITIS OR RADICULITIS NOS 03/04/2010 [facility], PADMINI R 723.1 CERVICALGIA 03/04/2010 [facility], PADMINI R 723.4 BRACHIA NEURITIS OR RADICULITIS NOS 03/04/2010 723.1 CERVICALGIA 03/04/2010 723.4 BRACHIA NEURITIS OR RADICULITIS NOS 03/04/2010 723.1 CERVICALGIA 03/04/2010 723.4 BRACHIA NEURITIS OR RADICULITIS NOS 03/04/2010 723.1 CERVICALGIA 03/04/2010 723.4 BRACHIA NEURITIS OR RADICULITIS NOS 03/04/2010 723.1 CERVICALGIA 03/04/2010 723.4 BRACHIA NEURITIS OR RADICULITIS NOS 03/04/2010 723.1 CERVICALGIA 03/04/2010 723.4 BRACHIA NEURITIS OR RADICULITIS NOS 03/04/2010 723.1 CERVICALGIA 03/04/2010 723.4 BRACHIA NEURITIS OR RADICULITIS NOS 03/04/2010 723.1 CERVICALGIA 03/04/2010 723.4 BRACHIA NEURITIS OR RADICULITIS NOS 03/04/2010 723.1 CERVICALGIA 03/04/2010 723.4 BRACHIA NEURITIS OR RADICULITIS NOS 03/04/2010 [facility], PADMINI R 723.1 CERVICALGIA 03/04/2010 [facility], PADMINI R 723.4 BRACHIA NEURITIS OR RADICULITIS NOS 03/04/2010 [facility], PADMINI R 723.1 CERVICALGIA 03/04/2010 [facility], PADMINI R 723.4 BRACHIA NEURITIS OR RADICULITIS NOS 03/04/2010 [facility], PADMINI R 723.1 CERVICALGIA 03/04/2010 [facility], PADMINI R 723.4 BRACHIA NEURITIS OR RADICULITIS NOS 03/04/2010 [facility], PADMINI R 723.1 CERVICALGIA 03/04/2010 [facility], PADMINI R 723.4 BRACHIA NEURITIS OR RADICULITIS NOS 03/04/2010 [facility], PADMINI R 723.1 CERVICALGIA 03/04/2010 [facility], PADMINI R 723.4 BRACHIA NEURITIS OR RADICULITIS NOS 03/04/2010 [facility], PADMINI R 723.1 CERVICALGIA 03/04/2010 [facility], PADMINI R 723.4 BRACHIA NEURITIS OR RADICULITIS NOS 03/04/2010 FIDEL WESTFALL MD N 723.1 CERVICALGIA 03/04/2010 FIDLE WESTFALL MD N 723.4 BRACHIA NEURITIS OR RADICULITIS NOS 03/04/2010 [facility], PADMINI R 723.1 CERVICALGIA 03/04/2010 [facility], PADMINI R 723.4 BRACHIA NEURITIS OR RADICULITIS NOS 03/04/2010 [facility], PADMINI R 723.1 CERVICALGIA 03/04/2010 [facility], PADMINI R 723.4 BRACHIA NEURITIS OR RADICULITIS NOS 03/04/2010 FIDEL WESTFALL MD N 723.1 CERVICALGIA 03/04/2010 FIDEL WESTFALL MD N 723.4 BRACHIA NEURITIS OR RADICULITIS NOS 03/04/2010 [facility], PADMINI R 723.1 CERVICALGIA 03/04/2010 [facility], PADMINI R 723.4 BRACHIA NEURITIS OR RADICULITIS NOS 03/04/2010 [facility], PADMINI R 723.1 [facility]ERVICALGIA [facility] BRACHIA NEURITIS OR RADICULITIS NOS 03/04/2010 FIDEL WESTFALL MD N 723.1 CERVICALGIA 03/04/2010 FIDEL WESTFALL MD N 723.4 BRACHIA NEURITIS OR RADICULITIS NOS 03/04/2010 AILIN [employer] WORKER, YURI A 723.1 CERVICALGIA 03/04/2010 YURI PARISI APRN 723.4 BRACHIA NEURITIS OR RADICULITIS NOS 03/04/2010 [facility], PADMINI R 723.1 CERVICALGIA 03/04/2010 [facility], PADMINI R 723.4 BRACHIA NEURITIS OR RADICULITIS NOS 03/04/2010 [facility], PADMINI R 723.1 CERVICALGIA 03/04/2010 [facility], PADMINI R 723.4 BRACHIA NEURITIS OR RADICULITIS NOS 03/04/2010 [facility], PADMINI R 723.1 CERVICALGIA 03/04/2010 [facility], PDAMINI R 723.4 BRACHIA NEURITIS OR RADICULITIS NOS 03/04/2010 [facility], PADMINI R 723.1 CERVICALGIA 03/04/2010 [facility], PADMINI R 723.4 BRACHIA NEURITIS OR RADICULITIS NOS 03/04/2010 [facility], PADMINI R 723.1 CERVICALGIA 03/04/2010 [facility], PADMINI R 723.4 BRACHIA NEURITIS OR RADICULITIS NOS 03/04/2010 GRETCHEN ROTHMAN MD 723.1 CERVICALGIA 03/04/2010 GRETCHEN ROTHMAN MD 723.4 BRACHIA NEURITIS OR RADICULITIS NOS 03/04/2010 FIDEL WESTFALL MD 723.1 CERVICALGIA 03/04/2010 FIDEL WESTFALL MD 723.4 BRACHIA NEURITIS OR RADICULITIS NOS 06/11/2010 Ot 592.1 06/11/2010 Ot 789.09 06/12/2010 [facility], PADMINI R 789.00 ABDOMINAL PAIN UNSPECIFIED SITE 06/12/2010 789.00 ABDOMINAL PAIN UNSPECIFIED SITE 06/12/2010 [facility], PADMINI R 789.00 ABDOMINAL PAIN UNSPECIFIED SITE 06/12/2010 789.00 ABDOMINAL PAIN UNSPECIFIED SITE 06/12/2010 789.00 ABDOMINAL PAIN UNSPECIFIED SITE 06/12/2010 MALACHI NINO APRN 789.00 ABDOMINAL PAIN UNSPECIFIED SITE 06/12/2010 789.00 Abdominal Pain Unspecified Site 06/12/2010 [facility], PADMINI R 789.00 Abdominal Pain Unspecified Site 06/12/2010 789.00 Abdominal Pain Unspecified Site 06/12/2010 789.00 Abdominal Pain Unspecified Site 06/12/2010 789.00 Abdominal Pain Unspecified Site 06/12/2010 789.00 Abdominal Pain Unspecified Site 06/12/2010 789.00 Abdominal Pain Unspecified Site 06/12/2010 789.00 Abdominal Pain Unspecified Site 06/12/2010 789.00 Abdominal Pain Unspecified Site 06/12/2010 789.00 Abdominal Pain Unspecified Site 06/12/2010 [facility], PADMINI R 789.00 Abdominal Pain Unspecified Site 06/12/2010 [facility], PADMINI R 789.00 Abdominal Pain Unspecified Site 06/12/2010 [facility], PADMINI R 789.00 Abdominal Pain Unspecified Site 06/12/2010 [facility], PADMINI R 789.00 Abdominal Pain Unspecified Site 06/12/2010 [facility], PADMINI R 789.00 Abdominal Pain Unspecified Site 06/12/2010 [facility], PADMINI R 789.00 Abdominal Pain Unspecified Site 06/12/2010 FIDEL WESTFALL MD N 789.00 Abdominal Pain Unspecified Site 06/12/2010 [facility], PADMINI R 789.00 Abdominal Pain Unspecified Site 06/12/2010 [facility], PADMINI R 789.00 Abdominal Pain Unspecified Site 06/12/2010 FIDEL WESTFALL MD N 789.00 Abdominal Pain Unspecified Site 06/12/2010 [facility], PADMINI R 789.00 Abdominal Pain Unspecified Site 06/12/2010 [facility], PADMINI R 789.00 Abdominal Pain Unspecified Site 06/12/2010 FIDEL WESTFALL MD N 789.00 Abdominal Pain Unspecified Site 06/12/2010 YURI PARISI APRN 789.00 Abdominal Pain Unspecified Site 06/12/2010 [facility], PADMINI R 789.00 Abdominal Pain Unspecified Site 06/12/2010 [facility], PADMINI R 789.00 Abdominal Pain Unspecified Site 06/12/2010 [facility], PADMINI R 789.00 Abdominal Pain Unspecified Site 06/12/2010 [facility], PADMINI R 789.00 Abdominal Pain Unspecified Site 06/12/2010 [facility], PADMINI R 789.00 Abdominal Pain Unspecified Site 06/12/2010 GRETCHEN ROTHMAN MD 789.00 Abdominal Pain Unspecified Site 06/12/2010 KHOI SMITH, FIDEL Moya 789.00 Abdominal Pain Unspecified Site 06/20/2010 [facility], PADMINI R 682.9 CELLULITIS AND ABSCESS OF UNSPECIFIED SITES 06/20/2010 [facility], PADMINI R 709.9 SKIN LESIONS 06/20/2010 682.9 CELLULITIS AND ABSCESS OF UNSPECIFIED SITES 06/20/2010 709.9 SKIN LESIONS 06/20/2010 [facility], PADMINI R 682.9 CELLULITIS AND ABSCESS OF UNSPECIFIED SITES 06/20/2010 [facility], PADMINI R 709.9 SKIN LESIONS 06/20/2010 682.9 CELLULITIS AND ABSCESS OF UNSPECIFIED SITES 06/20/2010 709.9 SKIN LESIONS 06/20/2010 682.9 CELLULITIS AND ABSCESS OF UNSPECIFIED SITES 06/20/2010 709.9 SKIN LESIONS 06/20/2010 MAE NINO APRNIA R 682.9 CELLULITIS AND ABSCESS OF UNSPECIFIED SITES 06/20/2010 NINO PET CREMATORY WORKER MALACHI R 709.9 SKIN LESIONS 06/20/2010 682.9 Cellulitis And Abscess Of Unspecified Sites 06/20/2010 709.9 SKIN LESIONS 06/20/2010 [facility], PADMINI R 682.9 Cellulitis And Abscess Of Unspecified Sites 06/20/2010 [facility], PADMINI R 709.9 SKIN LESIONS 06/20/2010 682.9 Cellulitis And Abscess Of Unspecified Sites 06/20/2010 709.9 SKIN LESIONS 06/20/2010 682.9 Cellulitis And Abscess Of Unspecified Sites 06/20/2010 709.9 SKIN LESIONS 06/20/2010 682.9 Cellulitis And Abscess Of Unspecified Sites 06/20/2010 709.9 SKIN LESIONS 06/20/2010 682.9 Cellulitis And Abscess Of Unspecified Sites 06/20/2010 709.9 SKIN LESIONS 06/20/2010 682.9 Cellulitis And Abscess Of Unspecified Sites 06/20/2010 709.9 SKIN LESIONS 06/20/2010 682.9 Cellulitis And Abscess Of Unspecified Sites 06/20/2010 709.9 SKIN LESIONS 06/20/2010 682.9 Cellulitis And Abscess Of Unspecified Sites 06/20/2010 709.9 SKIN LESIONS 06/20/2010 682.9 Cellulitis And Abscess Of Unspecified Sites 06/20/2010 709.9 SKIN LESIONS 06/20/2010 [facility], PADMINI R 682.9 Cellulitis And Abscess Of Unspecified Sites 06/20/2010 [facility], PADMINI R 709.9 SKIN LESIONS 06/20/2010 [facility], PADMINI R 682.9 Cellulitis And Abscess Of Unspecified Sites 06/20/2010 [facility], PADMINI R 709.9 SKIN LESIONS 06/20/2010 [facility], PADMINI R 682.9 Cellulitis And Abscess Of Unspecified Sites 06/20/2010 [facility], PADMINI R 709.9 SKIN LESIONS 06/20/2010 [facility], PADMINI R 682.9 Cellulitis And Abscess Of Unspecified Sites 06/20/2010 [facility], PADMINI R 709.9 SKIN LESIONS 06/20/2010 [facility], PADMINI R 682.9 Cellulitis And Abscess Of Unspecified Sites 06/20/2010 [facility], PADMINI R 709.9 SKIN LESIONS 06/20/2010 [facility], PADMINI R 682.9 Cellulitis And Abscess Of Unspecified Sites 06/20/2010 [facility], PADMINI R 709.9 SKIN LESIONS 06/20/2010 FIDEL WESTFALL MD N 682.9 Cellulitis And Abscess Of Unspecified Sites 06/20/2010 FIDEL WESTFALL MD N 709.9 SKIN LESIONS 06/20/2010 [facility], PADMINI R 682.9 Cellulitis And Abscess Of Unspecified Sites 06/20/2010 [facility], PADMINI R 709.9 SKIN LESIONS 06/20/2010 [facility], PADMINI R 682.9 Cellulitis And Abscess Of Unspecified Sites 06/20/2010 [facility], PADMINI R 709.9 SKIN LESIONS 06/20/2010 FIDEL WESTFALL MD N 682.9 Cellulitis And Abscess Of Unspecified Sites 06/20/2010 FIDEL WESTFALL MD N 709.9 SKIN LESIONS 06/20/2010 [facility], PADMINI R 682.9 Cellulitis And Abscess Of Unspecified Sites 06/20/2010 [facility], PADMINI R 709.9 SKIN LESIONS 06/20/2010 [facility], PADMINI R 682.9 Cellulitis And Abscess Of Unspecified Sites 06/20/2010 [facility], PADMINI R 709.9 SKIN LESIONS 06/20/2010 FIDEL WESTFALL MD N 682.9 Cellulitis And Abscess Of Unspecified Sites 06/20/2010 FIDEL WESTFALL MD 709.9 SKIN LESIONS 06/20/2010 AILIN PET CREMATORY WORKER, YURI A 682.9 Cellulitis And Abscess Of Unspecified Sites 06/20/2010 AILIN PET CREMATORY WORKER, YURI A 709.9 SKIN LESIONS 06/20/2010 [facility], PADMINI R 682.9 Cellulitis And Abscess Of Unspecified Sites 06/20/2010 [facility], PADMINI R 709.9 SKIN LESIONS 06/20/2010 [facility] 682.9 Cellulitis And Abscess Of Unspecified Sites 06/20/2010 [facility], PADMINI R 709.9 SKIN LESIONS 06/20/2010 [facility] 682.9 Cellulitis And Abscess Of Unspecified Sites 06/20/2010 [facility], PADMINI R 709.9 SKIN LESIONS 06/20/2010 [facility] 682.9 Cellulitis And Abscess Of Unspecified Sites 06/20/2010 [facility] 709.9 SKIN LESIONS 06/20/2010 [facility] 682.9 Cellulitis And Abscess Of Unspecified Sites 06/20/2010 [facility] 709.9 SKIN LESIONS 06/20/2010 GRETCHEN ROTHMAN MD 682.9 Cellulitis And Abscess Of Unspecified Sites 06/20/2010 GRETCHEN ROTHMAN MD 709.9 SKIN LESIONS 06/20/2010 FIDEL WESTFALL MD 682.9 Cellulitis And Abscess Of Unspecified Sites 06/20/2010 FIDEL WESTFALL MD 709.9 SKIN LESIONS 06/25/2010 Ot 682.5 10/18/2010 [facility] 719.47 PAIN IN JOINT INVOLVING ANKLE AND FOOT 10/18/2010 719.47 PAIN IN JOINT INVOLVING ANKLE AND FOOT 10/18/2010 PADMINI AMEZCUA R 719.47 PAIN IN JOINT INVOLVING ANKLE AND FOOT 10/18/2010 719.47 PAIN IN JOINT INVOLVING ANKLE AND FOOT 10/18/2010 719.47 PAIN IN JOINT INVOLVING ANKLE AND FOOT 10/18/2010 MALACHI NINO APRN R 719.47 PAIN IN JOINT INVOLVING ANKLE AND FOOT 10/18/2010 719.47 PAIN IN JOINT INVOLVING ANKLE AND FOOT 10/18/2010 PADMINI AMEZCUA R 719.47 PAIN IN JOINT INVOLVING ANKLE AND FOOT 10/18/2010 719.47 PAIN IN JOINT INVOLVING ANKLE AND FOOT 10/18/2010 719.47 PAIN IN JOINT INVOLVING ANKLE AND FOOT 10/18/2010 719.47 PAIN IN JOINT INVOLVING ANKLE AND FOOT 10/18/2010 719.47 PAIN IN JOINT INVOLVING ANKLE AND FOOT 10/18/2010 719.47 PAIN IN JOINT INVOLVING ANKLE AND FOOT 10/18/2010 719.47 PAIN IN JOINT INVOLVING ANKLE AND FOOT 10/18/2010 719.47 PAIN IN JOINT INVOLVING ANKLE AND FOOT 10/18/2010 719.47 PAIN IN JOINT INVOLVING ANKLE AND FOOT 10/18/2010 LE [facility] R 719.47 PAIN IN JOINT INVOLVING ANKLE AND FOOT 10/18/2010 LE JEAN-BAPTISTECSPADMINI R 719.47 PAIN IN JOINT INVOLVING ANKLE AND FOOT 10/18/2010 LE JEAN-BAPTISTECSPADMINI R 719.47 PAIN IN JOINT INVOLVING ANKLE AND FOOT 10/18/2010 LE JEAN-BAPTISTECSPADMINI R 719.47 PAIN IN JOINT INVOLVING ANKLE AND FOOT 10/18/2010 LE JEAN-BAPTISTECSPADMINI R 719.47 PAIN IN JOINT INVOLVING ANKLE AND FOOT 10/18/2010 LE JEAN-BAPTISTECSPADMINI R 719.47 PAIN IN JOINT INVOLVING ANKLE AND FOOT 10/18/2010 FIDEL WESTFALL MD 719.47 PAIN IN JOINT INVOLVING ANKLE AND FOOT 10/18/2010 LE JEAN-BAPTISTECSPADMINI R 719.47 PAIN IN JOINT INVOLVING ANKLE AND FOOT 10/18/2010 LE JEAN-BAPTISTECSPADMINI R 719.47 PAIN IN JOINT INVOLVING ANKLE AND FOOT 10/18/2010 FIDEL WESTFALL MD 719.47 PAIN IN JOINT INVOLVING ANKLE AND FOOT 10/18/2010 LE [facility]IST[facility]ADMINI R 719.47 PAIN IN JOINT INVOLVING ANKLE AND FOOT 10/18/2010 [facility], PADMINI R 719.47 PAIN IN JOINT INVOLVING ANKLE AND FOOT 10/18/2010 FIDEL WESTFALL MD 719.47 PAIN IN JOINT INVOLVING ANKLE AND FOOT 10/18/2010 YURI PARISI APRN 719.47 PAIN IN JOINT INVOLVING ANKLE AND FOOT 10/18/2010 [facility], PADMINI R 719.47 PAIN IN JOINT INVOLVING ANKLE AND FOOT 10/18/2010 [facility], PADMINI R 719.47 PAIN IN JOINT INVOLVING ANKLE AND FOOT 10/18/2010 [facility], PADMINI R 719.47 PAIN IN JOINT INVOLVING ANKLE AND FOOT 10/18/2010 [facility], PADMINI R 719.47 PAIN IN JOINT INVOLVING ANKLE AND FOOT 10/18/2010 [facility], PADMINI R 719.47 PAIN IN JOINT INVOLVING ANKLE AND FOOT 10/18/2010 GRETCHEN ROTHMAN MD 719.47 PAIN IN JOINT INVOLVING ANKLE AND FOOT 10/18/2010 FIDEL WESTFALL MD 719.47 PAIN IN JOINT INVOLVING ANKLE AND FOOT 12/19/2010 [facility], PADMINI R 296.90 MOOD DISORDER 12/19/2010 [facility], PADMINI R 787.91 DIARRHEA 12/19/2010 296.90 MOOD DISORDER 12/19/2010 787.91 DIARRHEA 12/19/2010 [facility], PADMINI R 296.90 MOOD DISORDER 12/19/2010 [facility], PADMINI R 787.91 DIARRHEA 12/19/2010 296.90 MOOD DISORDER 12/19/2010 787.91 DIARRHEA 12/19/2010 296.90 MOOD DISORDER 12/19/2010 787.91 DIARRHEA 12/19/2010 MALACHI NINO APRN R 296.90 MOOD DISORDER 12/19/2010 MALACHI NINO APRN R 787.91 DIARRHEA 12/19/2010 296.90 MOOD DISORDER 12/19/2010 787.91 Diarrhea 12/19/2010 [facility].90 MOOD [facility]ORDER [facility]/19[facility]2010 [facility] 787.91 Diarrhea 12/19/2010 296.90 MOOD DISORDER 12/19/2010 787.91 Diarrhea 12/19/2010 296.90 MOOD DISORDER 12/19/2010 787.91 Diarrhea 12/19/2010 296.90 MOOD DISORDER 12/19/2010 787.91 Diarrhea 12/19/2010 296.90 MOOD DISORDER 12/19/2010 787.91 Diarrhea 12/19/2010 296.90 MOOD DISORDER 12/19/2010 787.91 Diarrhea 12/19/2010 296.90 MOOD DISORDER 12/19/2010 787.91 Diarrhea 12/19/2010 296.90 MOOD DISORDER 12/19/2010 787.91 Diarrhea 12/19/2010 296.90 MOOD DISORDER 12/19/2010 787.91 Diarrhea 12/19/2010 [facility], PADMINI R 296.90 MOOD DISORDER 12/19/2010 [facility], PADMINI R 787.91 Diarrhea 12/19/2010 [facility], PADMINI R 296.90 MOOD DISORDER 12/19/2010 [facility], PADMINI R 787.91 Diarrhea 12/19/2010 [facility], PADMINI R 296.90 MOOD DISORDER 12/19/2010 [facility], PADMINI R 787.91 Diarrhea 12/19/2010 [facility], PADMINI R 296.90 MOOD DISORDER 12/19/2010 [facility], PADMINI R 787.91 Diarrhea 12/19/2010 [facility], PADMINI R 296.90 MOOD DISORDER 12/19/2010 [facility], PADMINI R 787.91 Diarrhea 12/19/2010 [facility], PADMINI R 296.90 MOOD DISORDER 12/19/2010 [facility], PADMINI R 787.91 Diarrhea 12/19/2010 FIDEL WESTFALL MD N 296.90 MOOD DISORDER 12/19/2010 FIDEL WESTFALL MD N 787.91 Diarrhea 12/19/2010 [facility], PADMNII R 296.90 MOOD DISORDER 12/19/2010 [facility], PADMINI R 787.91 Diarrhea 12/19/2010 [facility], PADMINI R 296.90 MOOD DISORDER 12/19/2010 [facility], PADMINI R 787.91 Diarrhea 12/19/2010 FIDEL WESTFALL MD N 296.90 MOOD DISORDER 12/19/2010 FIDEL WESTFALL MD N 787.91 Diarrhea 12/19/2010 [facility], PADMINI R 296.90 MOOD DISORDER 12/19/2010 [facility], PADMINI R 787.91 Diarrhea 12/19/2010 [facility], PADMINI R 296.90 MOOD DISORDER 12/19/2010 [facility], PADMINI R 787.91 Diarrhea 12/19/2010 FIDEL WESTFALL MD N 296.90 MOOD DISORDER 12/19/2010 FIDEL WESTFALL MD 787.91 Diarrhea 12/19/2010 AILIN [employer] WORK[employer], YURI A 296.90 MOOD DISORDER 12/19/2010 AILIN [employer] CRE[employer]ORY WORKER, YURI A 787.91 Diarrhea 12/19/2010 [facility], PADMINI R 296.90 MOOD DISORDER 12/19/2010 [facility], PADMINI R 787.91 Diarrhea 12/19/2010 [facility], PADMINI R 296.90 MOOD DISORDER 12/19/2010 [facility], PADMINI R 787.91 Diarrhea 12/19/2010 [facility], PADMINI R 296.90 MOOD DISORDER 12/19/2010 [facility], PADMINI R 787.91 Diarrhea 12/19/2010 [facility], PADMINI R 296.90 MOOD DISORDER 12/19/2010 [facility], PADMINI R 787.91 Diarrhea 12/19/2010 [facility], PADMINI R 296.90 MOOD DISORDER 12/19/2010 [facility], PADMINI R 787.91 Diarrhea 12/19/2010 GRETCHEN ROTHMAN MD 296.90 MOOD DISORDER 12/19/2010 GRETCHEN ROTHMAN MD 787.91 Diarrhea 12/19/2010 KHOI SMITH, FIDEL N 296.90 MOOD DISORDER 12/19/2010 FIDEL WESTFALL MD N 787.91 Diarrhea 01/31/2011 [facility], PADMINI R V72.31 BOND UNDERWRITER EXAM, ROUTINE 01/31/2011 [facility], PADMINI R V74.5 STD SCREEN 01/31/2011 V72.31 BOND UNDERWRITER EXAM, ROUTINE 01/31/2011 V74.5 STD SCREEN 01/31/2011 [facility] V72.31 BOND UNDERWRITER EXAM, ROUTINE 01/31/[facility] V74.5 STD SCREEN 01/31/2011 V72.31 BOND UNDERWRITER EXAM, ROUTINE 01/31/2011 V74.5 STD SCREEN 01/31/2011 V72.31 BOND UNDERWRITER EXAM, ROUTINE 01/31/2011 V74.5 STD SCREEN 01/31/2011 MALACHI NINO APRN V72.31 BOND UNDERWRITER EXAM, ROUTINE 01/31/2011 MALACHI NINO APRN R V74.5 STD SCREEN 01/31/2011 V72.31 Corporate Executive Exam, Routine 01/31/2011 V74.5 Std Screen 01/31/2011 [facility], PADMINI R V72.31 Corporate Executive Exam, Routine 01/31/2011 [facility], PADMINI R V74.5 Std Screen 01/31/2011 V72.31 Corporate Executive Exam, Routine 01/31/2011 V74.5 Std Screen 01/31/2011 V72.31 Corporate Executive Exam, Routine 01/31/2011 V74.5 Std Screen 01/31/2011 V72.31 Corporate Executive Exam, Routine 01/31/2011 V74.5 Std Screen 01/31/2011 V72.31 Corporate Executive Exam, Routine 01/31/2011 V74.5 Std Screen 01/31/2011 V72.31 Corporate Executive Exam, Routine 01/31/2011 V74.5 Std Screen 01/31/2011 V72.31 Corporate Executive Exam, Routine 01/31/2011 V74.5 Std Screen 01/31/2011 V72.31 Corporate Executive Exam, Routine 01/31/2011 V74.5 Std Screen 01/31/2011 V72.31 Corporate Executive Exam, Routine 01/31/2011 V74.5 Std Screen 01/31/2011 [facility], PADMINI R V72.31 Corporate Executive Exam, Routine 01/31/2011 [facility], PADMINI R V74.5 Std Screen 01/31/2011 [facility], PADMINI R V72.31 Corporate Executive Exam, Routine 01/31/2011 [facility], PADMINI R V74.5 Std Screen 01/31/2011 [facility], PADMINI R V72.31 Corporate Executive Exam, Routine 01/31/2011 [facility], PADMINI R V74.5 Std Screen 01/31/2011 [facility], PADMINI R V72.31 Corporate Executive Exam, Routine 01/31/2011 [facility], PADMINI R V74.5 Std Screen 01/31/2011 [facility], APDMINI R V72.31 Corporate Executive Exam, Routine 01/31/2011 [facility], PADMINI R V74.5 Std Screen 01/31/2011 [facility], PADMINI R V72.31 Corporate Executive Exam, Routine 01/31/2011 [facility], PADMINI R V74.5 Std Screen 01/31/2011 KHOI SMITH, FIDEL N V72.31 Corporate Executive Exam, Routine 01/31/2011 KHOI SMITH, FIDEL Moya V74.5 Std Screen 01/31/2011 [facility], PADMINI R V72.31 Corporate Executive Exam, Routine 01/31/2011 [facility], PADMINI R V74.5 Std Screen 01/31/2011 [facility], PADMINI R V72.31 Corporate Executive Exam, Routine 01/31/2011 [facility], PADMINI R V74.5 Std Screen 01/31/2011 KHOI SMITH, FIDEL Moya V72.31 Corporate Executive Exam, Routine 01/31/2011 KHOI SMITH, FIDEL Moya V74.5 Std Screen 01/31/2011 [facility], PADMINI R V72.31 Corporate Executive Exam, Routine 01/31/2011 [facility], PADMINI R V74.5 Std Screen 01/31/2011 [facility], PADMINI R V72.31 Corporate Executive Exam, Routine 01/31/2011 [facility], PADMINI R V74.5 Std Screen 01/31/2011 KHOI SMITH, FIDEL Moya V72.31 Corporate Executive Exam, Routine 01/31/2011 FIDEL WESTFALL MD V74.5 Std Screen 01/31/2011 YURI PARISI APRN V72.31 Corporate Executive Exam, Routine 01/31/2011 YURI PARISI APRN V74.5 Std Screen 01/31/2011 [facility], PADMINI R V72.31 Corporate Executive Exam, Routine 01/31/2011 [facility], PADMINI R V74.5 Std Screen 01/31/2011 [facility], PADMINI R V72.31 Corporate Executive Exam, Routine 01/31/2011 [facility], PADMINI R V74.5 Std Screen 01/31/2011 [facility], PADMINI R V72.31 Corporate Executive Exam, Routine 01/31/2011 [facility], PADMINI R V74.5 Std Screen 01/31/2011 [facility], PADMINI R V72.31 Corporate Executive Exam, Routine 01/31/2011 [facility], PADMINI R V74.5 Std Screen 01/31/2011 [facility], PADMINI R V72.31 Corporate Executive Exam, Routine 01/31/2011 [facility], PADMINI R V74.5 Std Screen 01/31/2011 STEPHAN SMITH, GRETCHEN V72.31 Corporate Executive Exam, Routine 01/31/2011 GRETCHEN ROTHMAN MD V74.5 Std Screen 01/31/2011 FIDEL WESTFALL MD V72.31 Corporate Executive Exam, Routine 01/31/2011 FIDEL WESTFALL MD V74.5 Std Screen 03/22/2011 Ot 616.3 10/07/2012 465.9 UPPER RESPIRATORY INFECTION 10/07/2012 V15.09 PERSONAL HISTORY OF OTHER ALLERGY OTHER THAN TO MEDICINAL AGENTS 10/07/2012 [facility], PADMINI R 465.9 UPPER RESPIRATORY INFECTION 10/07/2012 [facility], PADMINI R V15.09 PERSONAL HISTORY OF OTHER ALLERGY OTHER THAN TO MEDICINAL AGENTS 10/07/2012 465.9 UPPER RESPIRATORY INFECTION 10/07/2012 V15.09 PERSONAL HISTORY OF OTHER ALLERGY OTHER THAN TO MEDICINAL AGENTS 10/07/2012 465.9 UPPER RESPIRATORY INFECTION 10/07/2012 V15.09 PERSONAL HISTORY OF OTHER ALLERGY OTHER THAN TO MEDICINAL AGENTS 10/07/2012 MALACHI NINO APRN R 465.9 UPPER RESPIRATORY INFECTION 10/07/2012 MALACHI NINO APRN R V15.09 PERSONAL HISTORY OF OTHER ALLERGY OTHER THAN TO MEDICINAL AGENTS 10/07/2012 465.9 Upper Respiratory Infection 10/07/2012 V15.09 PERSONAL HISTORY OF OTHER ALLERGY OTHER THAN TO MEDICINAL AGENTS 10/07/2012 [facility], PADMINI R 465.9 Upper Respiratory Infection 10/07/2012 [facility], PADMINI R V15.09 PERSONAL HISTORY OF OTHER ALLERGY OTHER THAN TO MEDICINAL AGENTS 10/07/2012 465.9 Upper Respiratory Infection 10/07/2012 V15.09 PERSONAL HISTORY OF OTHER ALLERGY OTHER THAN TO MEDICINAL AGENTS 10/07/2012 465.9 Upper Respiratory Infection 10/07/2012 V15.09 PERSONAL HISTORY OF OTHER ALLERGY OTHER THAN TO MEDICINAL AGENTS 10/07/2012 465.9 Upper Respiratory Infection 10/07/2012 V15.09 PERSONAL HISTORY OF OTHER ALLERGY OTHER THAN TO MEDICINAL AGENTS 10/07/2012 465.9 Upper Respiratory Infection 10/07/2012 V15.09 PERSONAL HISTORY OF OTHER ALLERGY OTHER THAN TO MEDICINAL AGENTS 10/07/2012 465.9 Upper Respiratory Infection 10/07/2012 V15.09 PERSONAL HISTORY OF OTHER ALLERGY OTHER THAN TO MEDICINAL AGENTS 10/07/2012 465.9 Upper Respiratory Infection 10/07/2012 V15.09 PERSONAL HISTORY OF OTHER ALLERGY OTHER THAN TO MEDICINAL AGENTS 10/07/2012 465.9 Upper Respiratory Infection 10/07/2012 V15.09 PERSONAL HISTORY OF OTHER ALLERGY OTHER THAN TO MEDICINAL AGENTS 10/07/2012 465.9 Upper Respiratory Infection 10/07/2012 V15.09 PERSONAL HISTORY OF OTHER ALLERGY OTHER THAN TO MEDICINAL AGENTS 10/07/2012 [facility], PADMINI R 465.9 Upper Respiratory Infection 10/07/2012 [facility], PADMINI R V15.09 PERSONAL HISTORY OF OTHER ALLERGY OTHER THAN TO MEDICINAL AGENTS 10/07/2012 [facility], PADMINI R 465.9 Upper Respiratory Infection 10/07/2012 [facility], PADMINI R V15.09 PERSONAL HISTORY OF OTHER ALLERGY OTHER THAN TO MEDICINAL AGENTS 10/07/2012 [facility], PADMINI R 465.9 Upper Respiratory Infection 10/07/2012 [facility], PADMINI R V15.09 PERSONAL HISTORY OF OTHER ALLERGY OTHER THAN TO MEDICINAL AGENTS 10/07/2012 [facility], PADMINI R 465.9 Upper Respiratory Infection 10/07/2012 [facility], PADMINI R V15.09 PERSONAL HISTORY OF OTHER ALLERGY OTHER THAN TO MEDICINAL AGENTS 10/07/2012 [facility], PADMINI R 465.9 Upper Respiratory Infection 10/07/2012 [facility], PADMINI R V15.09 PERSONAL HISTORY OF OTHER ALLERGY OTHER THAN TO MEDICINAL AGENTS 10/07/2012 [facility], PADMINI R 465.9 Upper Respiratory Infection 10/07/2012 [facility], PADMINI R V15.09 PERSONAL HISTORY OF OTHER ALLERGY OTHER THAN TO MEDICINAL AGENTS 10/07/2012 FIDEL WESTFALL MD N 465.9 Upper Respiratory Infection 10/07/2012 FIDEL WESTFALL MD V15.09 PERSONAL HISTORY OF OTHER ALLERGY OTHER THAN TO MEDICINAL AGENTS 10/07/2012 [facility], PADMINI R 465.9 Upper Respiratory Infection 10/07/2012 [facility], PADMINI R V15.09 PERSONAL HISTORY OF OTHER ALLERGY OTHER THAN TO MEDICINAL AGENTS 10/07/2012 [facility], PADMINI R 465.9 Upper Respiratory Infection 10/07/2012 [facility], PADMINI R V15.09 PERSONAL HISTORY OF OTHER ALLERGY OTHER THAN TO MEDICINAL AGENTS 10/07/2012 KHOI MD, FIDEL N 465.9 Upper Respiratory Infection 10/07/2012 FIDEL WESTFALL MD N V15.09 PERSONAL HISTORY OF OTHER ALLERGY OTHER THAN TO MEDICINAL AGENTS 10/07/2012 [facility], PADMINI R 465.9 Upper Respiratory Infection 10/07/2012 [facility], PADMINI R V15.09 PERSONAL HISTORY OF OTHER ALLERGY OTHER THAN TO MEDICINAL AGENTS 10/07/2012 [facility], PADMINI R 465.9 Upper Respiratory Infection 10/07/2012 [facility], PADMINI R V15.09 PERSONAL HISTORY OF OTHER ALLERGY OTHER THAN TO MEDICINAL AGENTS 10/07/2012 FIDEL WESTFALL MD N 465.9 Upper Respiratory Infection 10/07/2012 FIDEL WESTFALL MD N V15.09 PERSONAL HISTORY OF OTHER ALLERGY OTHER THAN TO MEDICINAL AGENTS 10/07/2012 AILIN CAMARGO, YURI A 465.9 Upper Respiratory Infection 10/07/2012 AILINDAVE CAMARGO, YURI A V15.09 PERSONAL HISTORY OF OTHER ALLERGY OTHER THAN TO MEDICINAL AGENTS 10/07/2012 [facility], PADMINI R 465.9 Upper Respiratory Infection 10/07/2012 [facility], PADMINI R V15.09 PERSONAL HISTORY OF OTHER ALLERGY OTHER THAN TO MEDICINAL AGENTS 10/07/2012 [facility], PADMINI R 465.9 Upper Respiratory Infection 10/07/2012 [facility], PADMINI R V15.09 PERSONAL HISTORY OF OTHER ALLERGY OTHER THAN TO MEDICINAL AGENTS 10/07/2012 [facility], PADMINI R 465.9 Upper Respiratory Infection 10/07/2012 [facility], PADMINI R V15.09 PERSONAL HISTORY OF OTHER ALLERGY OTHER THAN TO MEDICINAL AGENTS 10/07/2012 [facility], PADMINI R 465.9 Upper Respiratory Infection 10/07/2012 [facility], PADMINI R V15.09 PERSONAL HISTORY OF OTHER ALLERGY OTHER THAN TO MEDICINAL AGENTS 10/07/2012 [facility], PADMINI R 465.9 Upper Respiratory Infection 10/07/2012 [facility], PADMINI R V15.09 PERSONAL HISTORY OF OTHER ALLERGY OTHER THAN TO MEDICINAL AGENTS 10/07/2012 GRETCHEN ROTHMAN MD 465.9 Upper Respiratory Infection 10/07/2012 GRETCHEN ROTHMAN MD V15.09 PERSONAL HISTORY OF OTHER ALLERGY OTHER THAN TO MEDICINAL AGENTS 10/07/2012 FIDEL WESTFALL MD N 465.9 Upper Respiratory Infection 10/07/2012 FIDEL WESTFALL MD V15.09 PERSONAL HISTORY OF OTHER ALLERGY OTHER THAN TO MEDICINAL AGENTS 12/13/2012 MALACHI NINO APRN 381.81 EUSTACHIAN TUBE DYSFUNCTION 12/13/2012 381.81 Eustachian Tube Dysfunction 12/13/2012 [facility], PADMINI R 381.81 Eustachian Tube Dysfunction 12/13/2012 381.81 Eustachian Tube Dysfunction 12/13/2012 381.81 Eustachian Tube Dysfunction 12/13/2012 381.81 Eustachian Tube Dysfunction 12/13/2012 381.81 Eustachian Tube Dysfunction 12/13/2012 381.81 Eustachian Tube Dysfunction 12/13/2012 381.81 Eustachian Tube Dysfunction 12/13/2012 381.81 Eustachian Tube Dysfunction 12/13/2012 381.81 Eustachian Tube Dysfunction 12/13/2012 [facility], PADMINI R 381.81 Eustachian Tube Dysfunction 12/13/2012 [facility], PADMINI R 381.81 Eustachian Tube Dysfunction 12/13/2012 [facility], PADMINI R 381.81 Eustachian Tube Dysfunction 12/13/2012 [facility], PADMINI R 381.81 Eustachian Tube Dysfunction 12/13/2012 [facility], PADMINI R 381.81 Eustachian Tube Dysfunction 12/13/2012 [facility], PADMINI R 381.81 Eustachian Tube Dysfunction 12/13/2012 FIDEL WESTFALL MD 381.81 Eustachian Tube Dysfunction 12/13/2012 [facility], PADMINI R 381.81 Eustachian Tube Dysfunction 12/13/2012 [facility], PADMINI R 381.81 Eustachian Tube Dysfunction 12/13/2012 FIDEL WESTFALL MD 381.81 Eustachian Tube Dysfunction 12/13/2012 [facility], PADMINI R 381.81 Eustachian Tube Dysfunction 12/13/2012 [facility], PADMINI R 381.81 Eustachian Tube Dysfunction 12/13/2012 FIDEL WESTFALL MD 381.81 Eustachian Tube Dysfunction 12/13/2012 YURI PARISI APRN 381.81 Eustachian Tube Dysfunction 12/13/2012 [facility], PADMINI R 381.81 Eustachian Tube Dysfunction 12/13/2012 [facility], PADMINI R 381.81 Eustachian Tube Dysfunction 12/13/2012 [facility], PADMINI R 381.81 Eustachian Tube Dysfunction 12/13/2012 [facility], PADMINI R 381.81 Eustachian Tube Dysfunction 12/13/2012 [facility], PADMINI R 381.81 Eustachian Tube Dysfunction 12/13/2012 STEPHAN SMITH, GRETCHEN 381.81 Eustachian Tube Dysfunction 12/13/2012 KHOI SMITH, FIDEL Moya 381.81 Eustachian Tube Dysfunction 04/16/2013 625.70 VULVODYNIA UNSPECIFIED 04/16/2013 V18.0 FAMILY HISTORY OF DIABETES MELLITUS 04/16/2013 625.70 VULVODYNIA UNSPECIFIED 04/16/2013 V18.0 FAMILY HISTORY OF DIABETES MELLITUS 04/16/2013 625.70 VULVODYNIA UNSPECIFIED 04/16/2013 V18.0 FAMILY HISTORY OF DIABETES MELLITUS 04/16/2013 625.70 VULVODYNIA UNSPECIFIED 04/16/2013 V18.0 FAMILY HISTORY OF DIABETES MELLITUS 04/16/2013 [facility], PADMINI R 625.70 VULVODYNIA UNSPECIFIED 04/16/2013 [facility], PADMINI R V18.0 FAMILY HISTORY OF DIABETES MELLITUS 04/16/2013 [facility], PADMINI R 625.70 VULVODYNIA UNSPECIFIED 04/16/2013 [facility], PADMINI R V18.0 FAMILY HISTORY OF DIABETES MELLITUS 04/16/2013 [facility], PADMINI R 625.70 VULVODYNIA UNSPECIFIED 04/16/2013 [facility], PADMINI R V18.0 FAMILY HISTORY OF DIABETES MELLITUS 04/16/2013 [facility], PADMINI R 625.70 VULVODYNIA UNSPECIFIED 04/16/2013 [facility], PADMINI R V18.0 FAMILY HISTORY OF DIABETES MELLITUS 04/16/2013 [facility], PADMINI R 625.70 VULVODYNIA UNSPECIFIED 04/16/2013 [facility], PADMINI R V18.0 FAMILY HISTORY OF DIABETES MELLITUS 04/16/2013 [facility], PADMINI R 625.70 VULVODYNIA UNSPECIFIED 04/16/2013 [facility], PADMINI R V18.0 FAMILY HISTORY OF DIABETES MELLITUS 04/16/2013 FIDEL WESTFALL MD 625.70 VULVODYNIA UNSPECIFIED 04/16/2013 FIDEL WESTFALL MD V18.0 FAMILY HISTORY OF DIABETES MELLITUS 04/16/2013 [facility], PADMINI R 625.70 VULVODYNIA UNSPECIFIED 04/16/2013 [facility], PADMINI R V18.0 FAMILY HISTORY OF DIABETES MELLITUS 04/16/2013 [facility], PADMINI R 625.70 VULVODYNIA UNSPECIFIED 04/16/2013 [facility], PADMINI R V18.0 FAMILY HISTORY OF DIABETES MELLITUS 04/16/2013 FIDEL WESTFALL MD N 625.70 VULVODYNIA UNSPECIFIED 04/16/2013 FIDEL WESTFALL MD V18.0 FAMILY HISTORY OF DIABETES MELLITUS 04/16/2013 [facility], PADMINI R 625.70 VULVODYNIA UNSPECIFIED 04/16/2013 [facility], PADMINI R V18.0 FAMILY HISTORY OF DIABETES MELLITUS 04/16/2013 [facility], PADMINI R 625.70 VULVODYNIA UNSPECIFIED 04/16/2013 [facility], PADMINI R V18.0 FAMILY HISTORY OF DIABETES MELLITUS 04/16/2013 FIDEL WESTFALL MD N 625.70 VULVODYNIA UNSPECIFIED 04/16/2013 FIDEL WESTFALL MD V18.0 FAMILY HISTORY OF DIABETES MELLITUS 04/16/2013 YURI PARISI APRN A 625.70 VULVODYNIA UNSPECIFIED 04/16/2013 YURI PARISI APRN A V18.0 FAMILY HISTORY OF DIABETES MELLITUS 04/16/2013 [facility], PADMINI R 625.70 VULVODYNIA UNSPECIFIED 04/16/2013 [facility], PADMINI R V18.0 FAMILY HISTORY OF DIABETES MELLITUS 04/16/2013 [facility], PADMINI R 625.70 VULVODYNIA UNSPECIFIED 04/16/2013 [facility], PADMINI R V18.0 FAMILY HISTORY OF DIABETES MELLITUS 04/16/2013 [facility], PADMINI R 625.70 VULVODYNIA UNSPECIFIED 04/16/2013 [facility], PADMINI R V18.0 FAMILY HISTORY OF DIABETES MELLITUS 04/16/2013 [facility], PADMINI R 625.70 VULVODYNIA UNSPECIFIED 04/16/2013 [facility], PADMINI R V18.0 FAMILY HISTORY OF DIABETES MELLITUS 04/16/2013 [facility], PADMINI R 625.70 VULVODYNIA UNSPECIFIED 04/16/2013 [facility], PADMINI R V18.0 FAMILY HISTORY OF DIABETES MELLITUS 04/16/2013 GRETCHEN ROTHMAN MD 625.70 VULVODYNIA UNSPECIFIED 04/16/2013 GRETCHEN ROTHMAN MD V18.0 FAMILY HISTORY OF DIABETES MELLITUS 04/16/2013 FIDEL WESTFALL MD 625.70 VULVODYNIA UNSPECIFIED 04/16/2013 FIDEL WESTFALL MD V18.0 FAMILY HISTORY OF DIABETES MELLITUS 10/12/2013 JAKE SMITH, VARGAS Bentley Ot 620.2 OVARIAN CYST NEC/NOS 10/12/2013 VARGAS JOSEPH MD Ot 789.03 ABDOMINAL PAIN, RIGHT LOWER QUADRANT 11/08/2013 [facility], PADMINI R 300.00 AN ANXIETY UNSPEC 11/08/2013 [facility], PADMINI R 300.00 AN ANXIETY UNSPEC 11/08/2013 FIDEL WESTFALL MD 300.00 AN ANXIETY UNSPEC 11/08/2013 [facility], PADMINI R 300.00 AN ANXIETY UNSPEC 11/08/2013 [facility], PADMINI R 300.00 AN ANXIETY UNSPEC 11/08/2013 FIDEL WESTFALL MD 300.00 AN ANXIETY UNSPEC 11/08/2013 YURI PARISI APRN 300.00 AN ANXIETY UNSPEC 11/08/2013 [facility], PADMINI R 300.00 AN ANXIETY UNSPEC 11/08/2013 [facility], PADMINI R 300.00 AN ANXIETY UNSPEC 11/08/2013 [facility], PADMINI R 300.00 AN ANXIETY UNSPEC 11/08/2013 [facility], PADMINI R 300.00 AN ANXIETY UNSPEC 11/08/2013 [facility], PADMINI R 300.00 AN ANXIETY UNSPEC 11/08/2013 GRETCHEN ROTHMAN MD 300.00 AN ANXIETY UNSPEC 11/08/2013 FIDEL WESTFALL MD 300.00 AN ANXIETY UNSPEC 01/12/2014 YURI PARISI APRN V72.31 BOND UNDERWRITER EXAM, ROUTINE 01/12/2014 YURI PARISI APRN V74.5 STD SCREEN 01/12/2014 AILIN PET CREMATORY WORKER, YURI A V76.10 BREAST CANCER SCREENING 01/12/2014 [facility] V72.31 BOND UNDERWRITER EXAM, ROUTINE 01/12/2014 [facility] V74.5 STD SCREEN 01/12/2014 [facility] V76.10 BREAST CANCER SCREENING 01/12/2014 [facility] P[facility] R V72.31 BOND UNDERWRITER EXAM, ROUTINE 01/12/2014 [facility], PADMINI R V74.5 STD SCREEN 01/12/2014 [facility] V76.10 BREAST CANCER SCREENING 01/12/2014 [facility] P[facility] V72.31 BOND UNDERWRITER EXAM, ROUTINE 01/12/2014 [facility] V74.5 STD SCREEN 01/12/2014 [facility] V76.10 BREAST CANCER SCREENING 01/12/2014 [facility], PADMINI R V72.31 BOND UNDERWRITER EXAM, ROUTINE 01/12/2014 [facility] V74.5 STD SCREEN 01/12/2014 [facility], PADMINI R V76.10 BREAST CANCER SCREENING 01/12/2014 [facility], PADMINI R V72.31 BOND UNDERWRITER EXAM, ROUTINE 01/12/2014 [facility] V74.5 STD SCREEN 01/12/2014 [facility], PADMINI R V76.10 BREAST CANCER SCREENING 01/12/2014 GRETCHEN ROTHMAN MD V72.31 BOND UNDERWRITER EXAM, ROUTINE 01/12/2014 GRETCHEN ROTHMAN MD V74.5 STD SCREEN 01/12/2014 GRETCHEN ROTHMAN MD V76.10 BREAST CANCER SCREENING 01/12/2014 FIDEL WESTFALL MD V72.31 BOND UNDERWRITER EXAM, ROUTINE 01/12/2014 FIDEL WESTFALL MD V74.5 STD SCREEN 01/12/2014 FIDEL WESTFALL MD V76.10 BREAST CANCER SCREENING 03/31/2014 [facility], PADMINI R 296.30 MO DEPRESSIVE RECURRENT UNSPECIFIED 03/31/2014 [facility], PADMINI R 296.30 MO DEPRESSIVE RECURRENT UNSPECIFIED 03/31/2014 [facility], PADMINI R 296.30 MO DEPRESSIVE RECURRENT UNSPECIFIED 03/31/2014 [facility], PADMINI R 296.30 MO DEPRESSIVE RECURRENT UNSPECIFIED 03/31/2014 GRETCHEN ROTHMAN MD 296.30 MO DEPRESSIVE RECURRENT UNSPECIFIED 03/31/2014 FIDEL WESTFALL MD 296.30 MO DEPRESSIVE RECURRENT UNSPECIFIED 06/26/2014 HAYLIE BOLIVAR DO Ot 574.20 CHOLELITHIASIS NOS 06/26/2014 HAYLIE BOLIVAR DO Ot 789.00 ABDOMINAL PAIN, UNSPECIFIED SITE 06/30/2014 LINDEN SMITH, SANTI Armendariz Ot 574.10 CHOLELITH W CHOLECYS NEC 07/11/2014 [facility], PADMINI [place] 682.9 CELLULITIS AND ABSCESS OF UNSPECIFIED SITES 07/11/2014 GRETCHEN ROTHMAN MD 682.9 CELLULITIS AND ABSCESS OF UNSPECIFIED SITES 07/11/2014 FIDEL WESTFALL MD 682.9 CELLULITIS AND ABSCESS OF UNSPECIFIED SITES 07/27/2014 GRETCHEN ROTHMAN MD 382.9 UNSPECIFIED OTITIS MEDIA 07/27/2014 FIDEL WESTFALL MD 382.9 UNSPECIFIED OTITIS MEDIA 10/17/2014 Ot 959.7 10/17/2014 Ot E000.8 10/17/2014 Ot E849.0 10/17/2014 Ot E928.9 10/17/2014 LINDEN SMITH, SANTI Armendariz Ot 574.20 10/17/2014 LINDEN SMITH, SANTI Armendariz Ot V72.84 12/07/2014 FIDEL WESTFALL MD 789.01 ABDOMINAL PAIN RIGHT UPPER QUADRANT 07/20/2015 FIDEL WESTFALL MD Ot 789.01 07/20/2015 FIDEL WESTFALL MD Ot V45.89 07/30/2015 FIDEL WESTFALL MD Ot 789.01 07/30/2015 FIDEL WESTFALL MD Ot V45.89 08/02/2015 Ot 959.7 08/02/2015 Ot E000.8 08/02/2015 Ot E849.0 08/02/2015 Ot E928.9 08/02/2015 LINDEN SMITH, SANTI Armendariz Ot 574.20 08/02/2015 SANTI CHEATHAM MD Ot V72.84 08/02/2015 FIDEL WESTFALL MD Ot 789.01 08/02/2015 FIDEL WESTFALL MD Ot V45.89 10/02/2015 MARTY ZENG DO Ot K21.0 GASTRO-ESOPHAGEAL REFLUX DISEASE WITH ES 10/02/2015 MARTY ZENG DO Ot K29.70 GASTRITIS, UNSPECIFIED, WITHOUT BLEEDING 10/02/2015 MARTY ZENG DO Ot K29.80 DUODENITIS WITHOUT BLEEDING 10/02/2015 MARTY ZENG DO Ot K44.9 DIAPHRAGMATIC HERNIA WITHOUT OBSTRUCTION 10/02/2015 MARTY ZENG DO Ot K60.2 ANAL FISSURE, UNSPECIFIED 09/22/2016 RADHA SMITH, GADIEL Hill Ot F17.210 NICOTINE DEPENDENCE, CIGARETTES, UNCOMPL 09/22/2016 RADHA SMITH, GADIEL Hill Ot M71.331 OTHER BURSAL CYST, RIGHT WRIST 05/29/2017 LINDEN SMITH, SANTI Armendariz Ot 574.20 CHOLELITHIASIS NOS 05/29/2017 LINDEN SMITH, SANTI Armendariz Ot V72.84 EXAM PRE-OPERATIVE NOS 05/29/2017 KHOI SMITH, FIDEL Moya Ot 789.01 ABDOMINAL PAIN, RIGHT UPPER QUADRANT 05/29/2017 FIDEL WESTFALL MD Ot V45.89 POSTSURGICAL STATES NEC 05/29/2017 FIDEL WESTFALL MD Ot K92.1 MELENA 05/29/2017 FIDEL WESTFALL MD Ot R10.9 UNSPECIFIED ABDOMINAL PAIN 05/29/2017 FIDEL WESTFALL MD Ot R63.4 ABNORMAL WEIGHT LOSS 05/29/2017 MARTY ZENG DO Ot Z01.818 ENCOUNTER FOR OTHER PREPROCEDURAL EXAMIN 06/01/2017 FIDEL WESTFALL MD Ot N83.292 OTHER OVARIAN CYST, LEFT SIDE 06/05/2017 FIDEL WESTFALL MD Ot N83.292 OTHER OVARIAN CYST, LEFT SIDE 01/13/2019 LINDEN SMITH, SANTI Armendariz Ot 574.20 CHOLELITHIASIS NOS 01/13/2019 LINDEN SMITH, SANTI Armendariz Ot V72.84 EXAM PRE-OPERATIVE NOS 01/13/2019 FIDEL WESTFALL MD Ot 789.01 ABDOMINAL PAIN, RIGHT UPPER QUADRANT 01/13/2019 FIDEL WESTFALL MD Ot V45.89 POSTSURGICAL STATES NEC 01/13/2019 FIDEL WESTFALL MD Ot K92.1 MELENA 01/13/2019 FIDEL WESTFALL MD Ot R10.9 UNSPECIFIED ABDOMINAL PAIN 01/13/2019 FIDEL WESTFALL MD Ot R63.4 ABNORMAL WEIGHT LOSS 01/13/2019 MARTY ZENG DO Ot Z01.818 ENCOUNTER FOR OTHER PREPROCEDURAL EXAMIN 01/13/2019 FIDEL WESTFALL MD Ot N83.292 OTHER OVARIAN CYST, LEFT SIDE Procedures Code Description [place] [address] INDIV PSYTX 45/50 MIN 09/14/2012 28828 INDIV PSYTX 45/50 MIN 10/13/2012 36449 INDIV PSYTX 45/50 MIN 10/20/2012 47161 PSYTX PT&/FAMILY 60 MINUTES 11/26/2012 89401 PSYTX PT&/FAMILY 45 MINUTES 12/14/2012 42128 PSYTX PT&/FAMILY 45 MINUTES 01/06/2013 08887 PSYTX PT&/FAMILY 60 MINUTES 01/06/2013 86523 PSYTX PT&/FAMILY 45 MINUTES 01/20/2013 41522 PSYTX PT&/FAMILY 45 MINUTES 02/18/2013 31737 PSYTX PT&/FAMILY 45 MINUTES 03/03/2013 95220 PSYTX PT&/FAMILY 60 MINUTES 03/31/2013 99402 PSYTX PT&/FAMILY 45 MINUTES 04/21/2013 65282 PSYTX PT&/FAMILY 45 MINUTES 04/29/2013 69249 PSYTX PT&/FAMILY 60 MINUTES 06/21/2013 03682 PSYTX PT&/FAMILY 45 MINUTES 07/07/2013 72283 PSYTX PT&/FAMILY 45 MINUTES 07/21/2013 56601 PSYTX PT&/FAMILY 45 MINUTES 08/12/2013 87351 PSYTX PT&/FAMILY 45 MINUTES 08/26/2013 56511 PSYTX PT&/FAMILY 45 MINUTES 09/09/2013 03260 PSYTX PT&/FAMILY 45 MINUTES 10/07/2013 76276 PSYTX PT&/FAMILY 45 MINUTES 10/21/2013 54401 PSYTX PT&/FAMILY 45 MINUTES 11/09/2013 06686 PSYTX PT&/FAMILY 45 MINUTES 11/22/2013 10506 PSYTX PT&/FAMILY 45 MINUTES 12/21/2013 21665 PSYTX PT&/FAMILY 45 MINUTES 01/04/2014 69352 GC/CHLAM PROBE (STATE) 01/12/2014 47009 TRICHOMONAS (IN-HOUSE) 01/12/2014 65240 CULTURE UROGENITAL 01/14/2014 14181 PSYTX PT&/FAMILY 45 MINUTES 02/15/2014 53335 PSYTX PT&/FAMILY 45 MINUTES 03/31/2014 52007 PSYTX PT&/FAMILY 45 MINUTES 04/07/2014 55089 PSYTX PT&/FAMILY 45 MINUTES 05/26/2014 59735 PSYTX PT&/FAMILY 45 MINUTES 07/12/2014 72725 ROUTINE VENIPUNCTURE 12/07/2014 28623 US LIVER ULTRASOUND 12/07/2014 96864 CMP 12/07/2014 17489 CBC 12/07/2014 Results Test Result Range CBC With Differential/Platelet - 05/21/17 09:31 WBC 7.6 x10E3/uL 3.4-10.8 RBC 4.73 x10E6/uL 3.77-5.28 Hemoglobin 14.8 g/dL 11.1-15.9 Hematocrit 43.7 % 34.0-46.6 MCV 92 fL 79-97 MCH 31.3 pg 26.6-33.0 MCHC 33.9 g/dL 31.5-35.7 RDW 13.2 % 12.3-15.4 Platelets 333 x10E3/uL 150-379 Neutrophils 45 % Lymphs 46 % Monocytes 7 % Eos 2 % Basos 0 % Neutrophils (Absolute) 3.4 x10E3/uL 1.4-7.0 Lymphs (Absolute) 3.5 x10E3/uL 0.7-3.1 Monocytes(Absolute) 0.5 x10E3/uL 0.1-0.9 Eos (Absolute) 0.2 x10E3/uL 0.0-0.4 Baso (Absolute) 0.0 x10E3/uL 0.0-0.2 Immature Granulocytes 0 % Immature Grans (Abs) 0.0 x10E3/uL 0.0-0.1 Comp. Metabolic Panel (14) - 05/21/17 09:31 Glucose, Serum 114 mg/dL 65-99 BUN 8 mg/dL 6-20 Creatinine, Serum 0.68 mg/dL 0.57-1.00 eGFR If NonAfricn Am 114 mL/min/1.73 >59 eGFR If Africn Am 132 mL/min/1.73 >59 BUN/Creatinine Ratio 12 9-23 Sodium, Serum 141 mmol/L 134-144 Potassium, Serum 4.1 mmol/L 3.5-5.2 Chloride, Serum 101 mmol/L 96-106 Carbon Dioxide, Total 20 mmol/L 18-29 Calcium, Serum 9.4 mg/dL 8.7-10.2 Protein, Total, Serum 7.3 g/dL 6.0-8.5 Albumin, Serum 4.6 g/dL 3.5-5.5 Globulin, Total 2.7 g/dL 1.5-4.5 A/G Ratio 1.7 1.2-2.2 Bilirubin, Total <0.2 mg/dL 0.0-1.2 Alkaline Phosphatase, S 72 IU/L 39-117 AST (SGOT) 18 IU/L 0-40 ALT (SGPT) 22 IU/L 0-32 TSH - 05/21/17 09:31 TSH 1.370 uIU/mL 0.450-4.500 Hematopath Consultation, Smear - 05/25/17 16:19 WBC Comment RBC Appear normal. PLTs Appear normal. Pathologist Comment TSH - 02/09/18 10:28 TSH 1.03 mIU/L NRG Encounters ACCT No. Visit Date/Time Discharge Status Pt. Type Provider Facility Loc./Unit Complaint [id number] 12/07/2014 09:22:00 12/07/2014 23:59:59 [facility] Outpatient KHOI SMITH, FIDEL Moya [id number] 07/27/2014 11:38:00 07/27/2014 23:59:59 [facility] Outpatient STEPHAN SMITH, GRETCHEN [id number] 07/12/2014 10:56:00 07/12/2014 23:59:59 [facility] [id number] 05/26/2014 10:55:00 05/26/2014 23:59:59 [facility] LE PADMNII PERSON [id number] 04/07/2014 13:57:00 04/07/2014 23:59:59 [facility] LE PADMINI PERSON [id number] 03/31/2014 10:54:00 03/31/2014 23:59:59 [facility] LE LSCS, PADMINI R [id number] 02/15/2014 07:55:00 02/15/2014 23:59:59 [facility] Outpatient LE LSCS, PADMINI R [id number] 01/12/2014 10:15:00 01/12/2014 23:59:59 [facility] Outpatient YURI PARISI APRN [id number] 01/11/2014 09:40:00 01/11/2014 23:59:59 [facility] Outpatient FIDEL WESTFALL MD [id number] 01/04/2014 07:58:00 01/04/2014 23:59:59 [facility] Outpatient LE LSCS, PADMINI [place] [id number] 12/21/2013 08:58:00 12/21/2013 23:59:59 [facility] Outpatient LE LSCS, PADMINI R [id number] 12/02/2013 09:52:00 12/02/2013 23:59:59 [facility] Outpatient FIDEL WESTFALL MD [id number] 11/22/2013 09:53:00 11/22/2013 23:59:59 [facility] Outpatient LE LSCS, PADMINI [place] [id number] 11/08/2013 09:58:00 11/08/2013 23:59:59 [facility] Outpatient LE LSCS, PADMINI [place] [id number] 11/01/2013 09:17:00 11/01/2013 23:59:59 [facility] Outpatient FIDEL WESTFALL MD [id number] 10/21/2013 07:55:00 10/21/2013 23:59:59 [facility] Outpatient LE LSCS, PADMINI [place] [id number] 10/07/2013 07:59:00 10/07/2013 23:59:59 [facility] Outpatient LE LSCS, PADMINI [place] [id number] 09/09/2013 07:56:00 09/09/2013 23:59:59 [facility] Outpatient LE LSCS, PADMINI [place] [id number] 08/26/2013 08:54:00 08/26/2013 23:59:59 [facility] Outpatient LE LSCS, PADMINI [place] [id number] 08/12/2013 09:02:00 08/12/2013 23:59:59 CLS Outpatient LE LSCS, PADMINI [place] [id number] 07/21/2013 08:53:00 07/21/2013 23:59:59 CLS Outpatient LE LSCS, PADMINI [place] [id number] 01/20/2013 07:57:00 01/20/2013 23:59:59 CLS Outpatient [id number] 01/06/2013 09:56:00 01/06/2013 23:59:59 CLS Outpatient PADMINI AMEZCUA [id number] 12/30/2012 10:43:00 12/30/2012 23:59:59 CLS Outpatient [id number] 12/13/2012 13:42:00 12/13/2012 23:59:59 CLS Outpatient MALACHI NINO APRN [id number] 11/24/2012 12:55:00 11/24/2012 23:59:59 CLS Outpatient [id number] 10/20/2012 07:54:00 10/20/2012 23:59:59 CLS Outpatient [id number] 10/13/2012 07:59:00 10/13/2012 23:59:59 CLS Outpatient PADMINI AMEZCUA [id number] 10/07/2012 13:44:00 10/07/2012 23:59:59 CLS Outpatient [id number] 09/14/2012 12:53:00 09/14/2012 23:59:59 CLS Outpatient PADMINI AMEZCUA [id number] 07/07/2013 08:57:00 Document Registration [id number] 06/02/2013 08:54:00 Document Registration [id number] 04/29/2013 09:00:00 Document Registration [id number] 04/16/2013 09:35:00 Document Registration [id number] 03/31/2013 09:05:00 Document Registration [id number] 03/03/2013 07:58:00 Document Registration [id number] 02/18/2013 09:02:00 Document Registration [id number] 05/22/2017 08:36:00 Document Registration [id number] 05/27/2017 15:08:00 Document Registration [id number] 12/14/2018 10:30:00 12/14/2018 23:59:59 CLS Outpatient IMAN FOLEY APRN [facility] [id number] 02/09/2018 09:40:00 Document Registration [id number] 05/29/2017 14:01:00 05/29/2017 23:59:59 CLS Outpatient FIDEL WESTFALL MD [facility] RAD PELVIC PAIN R10.2 [id number] 09/22/2016 08:15:00 09/22/2016 09:05:00 DIS Emergency RADHA SMITH, GADIEL Hill [facility] ER CYST ON RIGHT WRIST [id number] 10/02/2015 07:59:00 10/02/2015 11:20:00 DIS Outpatient MARTY ZENG DO [facility] SDC EPIGASTRIC PAIN [id number] 09/06/2015 05:49:00 09/06/2015 23:59:59 CLS Outpatient MARTY ZENG DO [facility] PREOP EPIGASTRIC PAIN [id number] 08/03/2015 13:17:00 08/03/2015 23:59:59 CLS Outpatient FIDEL WESTFALL MD [facility] RAD ABD PAIN [id number] 12/18/2014 08:14:00 12/18/2014 23:59:59 CLS Outpatient FIDEL WESTFALL MD [facility] RAD RUQ PAIN, POST CHOLESECTOMY [id number] 06/30/2014 06:58:00 06/30/2014 15:55:00 DIS Outpatient SANTI CHEATHAM MD [facility] SDC GALLSTONES [id number] 06/28/2014 07:12:00 06/28/2014 23:59:59 CLS Outpatient SANTI CHEATHAM MD [facility] PREOP GALLSTONES [id number] 06/26/2014 13:00:00 06/26/2014 17:16:00 DIS Emergency HAYLIE BOLIVAR DO [facility] ER ABD PAIN [id number] 11/18/2013 17:19:00 11/18/2013 23:59:59 CLS Outpatient [id number] 10/12/2013 10:42:00 10/12/2013 15:04:00 DIS Emergency VARGAS JOSEPH MD [facility] ER ABD PAIN/BLOATING [id number] 06/30/2013 12:39:00 06/30/2013 23:59:59 CLS Outpatient [id number] 01/13/2019 21:19:00 ACT Emergency LANDON MCCLAIN MD [facility] ER ABD PAIN [id number] 03/21/2011 17:49:00 Document Registration [id number] 10/18/2010 13:54:00 Document Registration [id number] 06/25/2010 17:50:00 Document Registration [id number] 06/11/2010 11:20:00 Document Registration
[2019-01-13] MEDS ORDERED: FAMOTIDINE 20 MG (PEPCID) TABLET PO STA (22:17)
--- NOTE | 2019-01-13 22:21 | ED GI ---
General Chief Complaint: Abdominal/GI Problems Stated Complaint: ABD PAIN Nursing Triage Note: UPPER ABDOMINAL PAIN TODAY AFTER NAP. HX HIATAL HERNIA. Sepsis Screen: No Definite Risk Source of Information: Patient Exam Limitations: No Limitations History of Present Illness Date Seen by Provider: Jan 13, 2019 Time Seen by Provider: 22:10 Initial Comments Patient presents to ER by private conveyance with chief complaint that all day today she's been feeling some pressure which is in her epigastric region and made worse by hunching forward or sitting down. Better by standing up. She says she has a history of this symptom and has had her gallbladder out surgically as well as 2 C-sections and hysterectomy and history of 3 D&Cs. She was given a EGD and colonoscopy recently discovered she had a hernia but nothing else going on. She occasionally takes antacids but has not taken any today. She is not having any diarrhea normal bowel movements this morning. No fevers chills nausea vomiting or pain just pressure. Allergies and Home Medications Allergies Coded Allergies: NSAIDS (Non-Steroidal Anti-Inflamma (Verified Allergy, Unknown, 09/22/16) latex (Verified Allergy, Unknown, 05/07/06) Home Medications Cetirizine HCl 10 Mg Capsule, 10 MG PO NEEDED, (Reported) Fluticasone Propionate 9.9 Ml [place].susp, 1 SPRAY NS DAILY, (Reported) 1 SPRAY EACH NARE DAILY Patient Home Medication List Home Medication List Reviewed: Yes Review of Systems Review of Systems Constitutional: No chills, No fever, No malaise EENTM: No Blurred Vision, No Double Vision Respiratory: Denies Cough, Denies Shortness of Air Gastrointestinal: See HPI; Denies Abdomen Distended; Abdominal Pain (Pressure not pain); Denies Constipated, Denies Diarrhea, Denies Nausea, Denies Poor Fluid Intake Genitourinary: Denies Burning, Denies Discharge Musculoskeletal: No back pain, No joint pain Skin: No pruritus, No rash Past Vhpaxkz-Vtayap-Fvbent Hx Patient Social History Alcohol Use: Denies Use Recreational Drug Use: No Type Used: Electronic/Vapor 2nd Hand Smoke Exposure: Yes Recent Foreign Travel: No Contact w/Someone Who Travel: No Recent Infectious Disease Expo: No Recent Hopitalizations: No Immunizations Up To Date Tetanus Booster (TDap): Unknown Seasonal Allergies Seasonal Allergies: Yes Past Medical History Surgeries: Yes ( LEFT KNEE SCOPE) Section, Gallbladder, Hysterectomy, Orthopedic Respiratory: No Cardiac: No Neurological: No : No Reproductive Disorders: Yes (FIBROID TUMORS IN 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 oz. 87.478653pw; 33.20 BMI Method:Stated General Appearance: WD/WN, mild distress HEENT: PERRL/EOMI, pharynx normal Neck: non-tender, full range of motion, supple, normal inspection Respiratory: lungs clear, normal breath sounds, no respiratory distress, no accessory muscle use Cardiovascular: normal peripheral pulses, regular rate, rhythm Gastrointestinal: normal bowel sounds, soft, tenderness (Right upper quadrant and epigastric region.); No hernia, No mass Progress/Results/Core Measures Results/Orders Lab Results Laboratory Tests Test 01/13/19 21:27 Range/Units White Blood Count 8.5 4.3-11.0 10^3/uL Red Blood Count 4.24 L 4.35-5.85 10^6/uL Hemoglobin 13.4 11.5-16.0 G/DL Hematocrit 38 35-52 % Mean Corpuscular Volume 89 80-99 FL Mean Corpuscular Hemoglobin 32 25-34 PG Mean Corpuscular Hemoglobin Concent 35 32-36 G/DL Red Cell Distribution Width 12.7 10.0-14.5 % Platelet Count 320 130-400 10^3/uL Mean Platelet Volume 8.8 7.4-10.4 FL Neutrophils (%) (Auto) 36 L 42-75 % Lymphocytes (%) (Auto) 53 H 12-44 % Monocytes (%) (Auto) 9 0-12 % Eosinophils (%) (Auto) 2 0-10 % Basophils (%) (Auto) 0 0-10 % Neutrophils # (Auto) 3.1 1.8-7.8 X 10^3 Lymphocytes # (Auto) 4.5 H 1.0-4.0 X 10^3 Monocytes # (Auto) 0.7 0.0-1.0 X 10^3 Eosinophils # (Auto) 0.2 0.0-0.3 10^3/uL Basophils # (Auto) 0.0 0.0-0.1 10^3/uL Sodium Level 140 135-145 MMOL/L Potassium Level 3.7 3.6-5.0 MMOL/L Chloride Level 106 98-107 MMOL/L Carbon Dioxide Level 23 21-32 MMOL/L Anion Gap 11 5-14 MMOL/L Blood Urea Nitrogen 10 7-18 MG/DL Creatinine 0.84 0.60-1.30 MG/DL Estimat Glomerular Filtration Rate > 60 BUN/Creatinine Ratio 12 Glucose Level 91 70-105 MG/DL Calcium Level 9.3 8.5-10.1 MG/DL Corrected Calcium 8.9 8.5-10.1 MG/DL Total Bilirubin 0.3 0.1-1.0 MG/DL Aspartate Amino Transf (AST/SGOT) 39 H 5-34 U/L Alanine Aminotransferase (ALT/SGPT) 40 0-55 U/L Alkaline Phosphatase 75 40-136 U/L Total Protein 7.5 6.4-8.2 GM/DL Albumin 4.5 3.2-4.5 GM/DL Lipase 15 8-78 U/L My Orders Orders - LANDON MCCLAIN Lidocaine 2% Viscous 15 Ml (Xylocaine Vi (01/13/19 22:30) Famotidine Tablet (Pepcid Tablet) (01/13/19 22:17) Antacid Suspension (Mylanta Suspension (01/13/19 22:30) Cbc With Automated Diff (01/13/19 22:17) Comprehensive Metabolic Panel (01/13/19 22:17) Lipase (01/13/19 22:21) Medications Given in ED Current Medications Medications Dose Ordered Sig/Micki Route Start Time Stop Time Status Last Admin Dose Admin Al Hydrox/Mg Hydrox/Simethicone 30 ml ONCE ONCE PO 01/13/19 22:30 01/13/19 22:31 DC 01/13/19 22:23 30 ML Lidocaine HCl 15 ml ONCE ONCE PO 01/13/19 22:30 01/13/19 22:31 DC 01/13/19 22:23 15 ML Vital Signs/I&O 01/13/19 21:54 Temp 98.5 Pulse 86 Resp 18 B/P (MAP) 127/82 (97) Pulse Ox 98 O2 Delivery Room Air Blood Pressure Mean: 97 Progress Progress Note : Time: 22:21 Progress Note Basic lab draw to include lipase. GI cocktail. Likely gastritis versus less likely pancreatitis, PUD. Departure Impression Primary Impression: Abdominal discomfort, epigastric Disposition: HOME, SELF-CARE Condition: Stable Departure-Patient Inst. Decision time for Depature: 23:00 Referrals: [facility] (PCP) Primary Care Physician IMAN FOLEY (Family) Primary Care Physician Patient Instructions: Hiatal Hernia (DC) Add. Discharge Instructions: While we could not find anything dangerous to explain your symptoms tonight I would recommend follow-up with the primary care doctor or surgeon for further evaluation and outpatient. You can use some antacids such as omeprazole once or twice a day for the next week and see if that doesn't give you some improvement in your symptoms. All discharge instructions reviewed with patient and/or family. Voiced understanding. LANDON MCCLAIN Jan 13, 2019 22:21
[2019-01-13] MEDS ORDERED: LIDOCAINE 2% VISCOUS 15 ML UDC PO ONE (22:30)
[2019-01-13] MEDS ORDERED: ANTACID SUSP 30 ML UDC (MYLANTA) PO ONE (22:30)
[2019-01-13 22:35] LABS: BASOPHILS % (AUTO) 0 % (0-10); EOSINOPHILS # (AUTO) 0.2 10^3/uL (0.0-0.3); EOSINOPHILS % (AUTO) 2 % (0-10); HEMATOCRIT 38 % (35-52); HEMOGLOBIN 13.4 G/DL (11.5-16.0); LYMPHOCYTES # (AUTO) 4.5 X 10^3 (1.0-4.0); LYMPHOCYTES % (AUTO) 53 % (12-44); MEAN CORPUSCULAR HEMOGLOBIN 32 PG (25-34); MEAN CORPUSCULAR HGB CONC 35 G/DL (32-36); MEAN CORPUSCULAR VOLUME 89 FL (80-99); MEAN PLATELET VOLUME 8.8 FL (7.4-10.4); MONOCYTES # (AUTO) 0.7 X 10^3 (0.0-1.0); MONOCYTES % (AUTO) 9 % (0-12); NEUTROPHILS # (AUTO) 3.1 X 10^3 (1.8-7.8); NEUTROPHILS % (AUTO) 36 % (42-75); PLATELET COUNT 320 10^3/uL (130-400); RED CELL DISTRIBUTION WIDTH 12.7 % (10.0-14.5); WHITE BLOOD COUNT 8.5 10^3/uL (4.3-11.0)
[2019-01-13 22:55] LABS: ALANINE AMINOTRANSFERASE 40 U/L (0-55); ALBUMIN 4.5 GM/DL (3.2-4.5); ALKALINE PHOSPHATASE 75 U/L (40-136); BILIRUBIN,TOTAL 0.3 MG/DL (0.1-1.0); BUN/CREATININE RATIO 12; CALCIUM 9.3 MG/DL (8.5-10.1); CARBON DIOXIDE 23 MMOL/L (21-32); CHLORIDE 106 MMOL/L (98-107); CREATININE SERUM 0.84 MG/DL (0.60-1.30); GFR ESTIMATED > 60; GLUCOSE 91 MG/DL (70-105); LIPASE 15 U/L (8-78); POTASSIUM 3.7 MMOL/L (3.6-5.0); SODIUM 140 MMOL/L (135-145); TOTAL PROTEIN 7.5 GM/DL (6.4-8.2)
[2019-01-13 23:04] VITALS: BP 125/80
== END 2019-01-13 23:05 | disposition home or self-care (01) ==
LOC: EDUNIT# 21:18 → ER 21:19
DX: R10.13 Epigastric pain (principal); F32.9 Major depressive disorder, single episode, unspecified; Z88.6 Allergy status to analgesic agent; Z91.041 Radiographic dye allergy status; Z79.51 Long term (current) use of inhaled steroids; Z90.710 Acquired absence of both cervix and uterus; Z98.890 Other specified postprocedural states; Z77.22 Contact with and (suspected) exposure to environmental tobacco smoke (acute) (chronic); Z87.19 Personal history of other diseases of the digestive system
CPT/HCPCS: 36415; 80053; 83690; 85025

== ENCOUNTER → 2019-01-24 | Outpatient (CLI) | payer MEDICAID ==
[~2019-01-24] MED LIST changes: +COLE625T9 PO; +FLUT9.9S NS; +LEVO5TAB28 PO
--- NOTE | 2019-01-24 17:28 | Diagnostic Imaging Report ---
INDICATION: Abdominal pain. TECHNIQUE: CT abdomen and pelvis obtained pre and post IV contrast. COMPARISON: Comparison made to 08/03/2015. FINDINGS: Visualized portions of the lung bases are clear. There were no pleural fluid collections. There is no free intraperitoneal air. The liver shows diffuse low-density change, compatible with fatty infiltration. There is no focal liver lesion. Gallbladder is absent. The spleen, adrenals, and pancreas are normal. The kidneys bilaterally are unremarkable. There is a small hiatal hernia. There is no retroperitoneal mass or adenopathy. There is no ascites or abnormal fluid collection. Visualized loops of bowel appear unremarkable. Patient appears to have had prior hysterectomy. IMPRESSION: Small hiatal hernia. Extensive fatty infiltration of the liver. No abdominal mass or abnormal fluid collection or other acute finding. Postop changes, as described above. Dictated by: Dictated on workstation # [id number]
== END ==
LOC: RAD 15:34
PROVIDERS: ATTEND Nurse Practitioner Community Health
DX: K44.9 Diaphragmatic hernia without obstruction or gangrene (principal); K76.0 Fatty (change of) liver, not elsewhere classified; Z90.49 Acquired absence of other specified parts of digestive tract
CPT/HCPCS: 74178

== ENCOUNTER 2020-04-02 14:01 | Emergency (ER) | payer MEDICAID ==
[~2020-04-02] VITALS: Ht 152.4 cm; Wt 79.5 kg
[2020-04-02] MEDS ORDERED: LACTATED RINGERS 1,000 ML IV STA (14:16)
[2020-04-02] MEDS ORDERED: fentaNYL INJECTION 100 MCG/2 ML AMP IVP STA (14:16)
[2020-04-02] MEDS ORDERED: KETOROLAC 30 MG/ML VIAL IVP STA (14:16)
[2020-04-02] MEDS ORDERED: ONDANSETRON 4 MG/2 ML (SDV) Z0FRAN IVP ONE (14:30)
[2020-04-02 14:34] LABS: BASOPHILS % (AUTO) 0 % (0-10); EOSINOPHILS # (AUTO) 0.1 10^3/uL (0.0-0.3); EOSINOPHILS % (AUTO) 1 % (0-10); HEMATOCRIT 37 % (35-52); HEMOGLOBIN 13.2 G/DL (11.5-16.0); LYMPHOCYTES # (AUTO) 3.7 X 10^3 (1.0-4.0); LYMPHOCYTES % (AUTO) 43 % (12-44); MEAN CORPUSCULAR HEMOGLOBIN 31 PG (25-34); MEAN CORPUSCULAR HGB CONC 35 G/DL (32-36); MEAN CORPUSCULAR VOLUME 87 FL (80-99); MONOCYTES # (AUTO) 0.5 X 10^3 (0.0-1.0); MONOCYTES % (AUTO) 6 % (0-12); NEUTROPHILS # (AUTO) 4.4 X 10^3 (1.8-7.8); NEUTROPHILS % (AUTO) 50 % (42-75); PLATELET COUNT 339 10^3/uL (130-400); RED CELL DISTRIBUTION WIDTH 12.1 % (10.0-14.5); WHITE BLOOD COUNT 8.7 10^3/uL (4.3-11.0)
--- NOTE | 2020-04-02 14:45 | ED Abdominal Pain ---
General Stated Complaint: LOWER R ABD/BACK PAIN;URINATING BLOOD Source of Information: Patient Exam Limitations: No Limitations History of Present Illness Date Seen by Provider: Apr 02, 2020 Time Seen by Provider: 14:12 Initial Comments Here with report of right flank and back pain radiating to the groin. Patient reports blood in her urine today. All this started over the last 3 hours and is significant now. Has had previous hysterectomy and cholecystectomy but still has appendix. Denies fever or chills. Does have nausea and vomiting related to the pain. States that she's had a kidney stone before but this is much worse than what that felt like. Timing/Duration: 1-3 Hours, 4-6 Hours Severity/Quality: Moderate, Severe Location: Flank (right) Radiation: Groin Activities at Onset: None Modifying Factors: Worsens With Movement; Improves With Resting Associated Symptoms: Back Pain; No Chest Pain, No Fever/Chills; Fatigue; No Headache; Nausea/Vomiting; No Shortness of Air, No Weakness Allergies and Home Medications Allergies Coded Allergies: NSAIDS (Non-Steroidal Anti-Inflamma (Verified Allergy, Unknown, 09/22/16) latex (Verified Allergy, Unknown, 05/07/06) Home Medications Cephalexin 500 Mg Tablet, 500 MG PO BID Prescribed by: VARGAS JOSEPH on 04/02/20 1629 Cetirizine HCl 10 Mg Capsule, 10 MG PO NEEDED, (Reported) Fluticasone Propionate 9.9 Ml [place].susp, 1 SPRAY NS DAILY, (Reported) 1 SPRAY EACH NARE DAILY Patient Home Medication List Home Medication List Reviewed: Yes Review of Systems Review of Systems Constitutional: see HPI; No chills, No fever EENTM: No Symptoms Reported Respiratory: No Symptoms Reported Cardiovascular: No Symptoms Reported Gastrointestinal: See HPI, Abdominal Pain; Denies Constipated, Denies Diarrhea; Nausea, Vomiting Genitourinary: Flank Pain, Hematuria Musculoskeletal: see HPI Skin: no symptoms reported Psychiatric/Neurological: No Symptoms Reported Endocrine: No Symptoms Reported All Other Systems Reviewed Negative Unless Noted: Yes Past Qglkoud-Miakat-Emdmad Hx Past Med/Social Hx: Reviewed Nursing Past Med/Soc Hx Patient Social History Alcohol Use: Denies Use Recreational Drug Use: No Type Used: Electronic/Vapor 2nd Hand Smoke Exposure: Yes Recent Hopitalizations: No Immunizations Up To Date Tetanus Booster (TDap): Unknown Seasonal Allergies Seasonal Allergies: Yes Past Medical History Surgeries: Yes ( LEFT KNEE SCOPE) Section, Gallbladder, Hysterectomy, Orthopedic Respiratory: No Cardiac: No Neurological: No Reproductive Disorders: Yes (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 oz. 87.157640hv; 33.20 BMI Method:Stated General Appearance: WD/WN, mild distress HEENT: PERRL/EOMI, pharynx normal Neck: full range of motion, supple Respiratory: lungs clear, normal breath sounds Cardiovascular: no murmur, tachycardia Peripheral Pulses: 2+ Dorsalis Pedis (R), 2+ Left Dors-Pedis (L), 2+ Radial Pulses (R), 2+ Radial Pulses (L) Gastrointestinal: soft, tenderness (right flank and suprapubic) Extremities: non-tender, normal inspection Back: normal inspection, no CVA tenderness, no vertebral tenderness Neurologic/Psychiatric: alert, oriented x 3 Skin: normal color, warm/dry Progress/Results/Core Measures Results/Orders Lab Results Laboratory Tests Test 04/02/20 14:26 04/02/20 15:54 Range/Units White Blood Count 8.7 4.3-11.0 10^3/uL Red Blood Count 4.30 L 4.35-5.85 10^6/uL Hemoglobin 13.2 11.5-16.0 G/DL Hematocrit 37 35-52 % Mean Corpuscular Volume 87 80-99 FL Mean Corpuscular Hemoglobin 31 25-34 PG Mean Corpuscular Hemoglobin Concent 35 32-36 G/DL Red Cell Distribution Width 12.1 10.0-14.5 % Platelet Count 339 130-400 10^3/uL Mean Platelet Volume 9.0 7.4-10.4 FL Neutrophils (%) (Auto) 50 42-75 % Lymphocytes (%) (Auto) 43 12-44 % Monocytes (%) (Auto) 6 0-12 % Eosinophils (%) (Auto) 1 0-10 % Basophils (%) (Auto) 0 0-10 % Neutrophils # (Auto) 4.4 1.8-7.8 X 10^3 Lymphocytes # (Auto) 3.7 1.0-4.0 X 10^3 Monocytes # (Auto) 0.5 0.0-1.0 X 10^3 Eosinophils # (Auto) 0.1 0.0-0.3 10^3/uL Basophils # (Auto) 0.0 0.0-0.1 10^3/uL Sodium Level 137 135-145 MMOL/L Potassium Level 3.5 L 3.6-5.0 MMOL/L Chloride Level 106 98-107 MMOL/L Carbon Dioxide Level 19 L 21-32 MMOL/L Anion Gap 12 5-14 MMOL/L Blood Urea Nitrogen 8 7-18 MG/DL Creatinine 0.74 0.60-1.30 MG/DL Estimat Glomerular Filtration Rate > 60 BUN/Creatinine Ratio 11 Glucose Level 119 H 70-105 MG/DL Calcium Level 8.8 8.5-10.1 MG/DL Corrected Calcium 8.6 8.5-10.1 MG/DL Total Bilirubin 0.3 0.1-1.0 MG/DL Aspartate Amino Transf (AST/SGOT) 18 5-34 U/L Alanine Aminotransferase (ALT/SGPT) 16 0-55 U/L Alkaline Phosphatase 81 40-136 U/L C-Reactive Protein High Sensitivity 0.24 0.00-0.50 MG/DL Total Protein 7.2 6.4-8.2 GM/DL Albumin 4.2 3.2-4.5 GM/DL Urine Color YELLOW Urine Clarity CLEAR Urine pH 6.0 5-9 Urine Specific [place] >=1.030 1.016-1.022 Urine Protein 2+ H NEGATIVE Urine Glucose (UA) NEGATIVE NEGATIVE Urine Ketones NEGATIVE NEGATIVE Urine Nitrite NEGATIVE NEGATIVE Urine Bilirubin 1+ H NEGATIVE Urine Urobilinogen 1.0 < = 1.0 MG/DL Urine Leukocyte Esterase NEGATIVE NEGATIVE Urine RBC (Auto) 3+ H NEGATIVE Urine RBC TNTC H /HPF Urine WBC NONE /HPF Urine Squamous Epithelial Cells 0-2 /HPF Urine Crystals NONE /LPF Urine Bacteria NEGATIVE /HPF Urine Casts NONE /LPF Urine Mucus NEGATIVE /LPF Urine Culture Indicated NO My Orders Orders - VARGAS JOSEPH MD Cbc With Automated Diff (04/02/20 14:16) Comprehensive Metabolic Panel (04/02/20 14:16) Hs C Reactive Protein (04/02/20 14:16) Ua Culture If Indicated (04/02/20 14:16) Fentanyl Injection (Sublimaze Injection (04/02/20 14:16) Ketorolac Injection (Toradol Injection) (04/02/20 14:16) Ondansetron Injection (Zofran Injectio (04/02/20 14:30) Lactated Ringers (Lr 1000 Ml Iv Solution (04/02/20 14:16) Ed Iv/Invasive Line Start (04/02/20 14:16) Ct Abd/Pelvis Wo(Kidney Stone) (04/02/20 14:16) Abdomen/Kub 1view (04/02/20 15:40) Medications Given in ED Current Medications Medications Dose Ordered Sig/Micki Route Start Time Stop Time Status Last Admin Dose Admin Ondansetron HCl 4 mg ONCE ONCE IVP 04/02/20 14:30 04/02/20 14:31 DC 04/02/20 14:36 4 MG Vital Signs/I&O 04/02/20 14:07 Temp 37.1 Pulse 75 Resp 18 B/P (MAP) 125/75 (92) Pulse Ox 98 Progress Progress Note : Progress Note Seen and evaluated. IV, labs, UA, CT abdomen pelvis to the stone protocol ordered. LR 1 L bolus, Toradol 30 mg IV and fentanyl 50 g IV ordered. Monitor patient. 1640: CT did show right ureteral stone at the ureteropelvic junction that was approximately 2 mm with some hydronephrosis. Pain is much better controlled now. We did get a KUB and UA was finally obtained. I did discuss with the patient regarding pain control. Right now she would be safe for outpatient care with follow-up with urology and she agrees. She has declined narcotic pain medicine prescription and will instead use her prescribed Naprosyn and Tylenol as needed. I will initiate outpatient antibiotic and give her information to follow up with Dr. Ram. Discharged home with return precautions. Patient verbalize understanding instructions and agreement with plan. Diagnostic Imaging Diagonstic Imaging: CT Plain Films/CT/US/NM/MRI: abdomen, pelvis Comments [facility] [place], [place] NAME: TOBY SERRATO [facility] REC#: [id number] PT STATUS: REG ER : 1980 PHYSICIAN: VARGAS JOSEPH MD ADMIT DATE: 04/02/20/ER Draft Date of Exam:04/02/20 CT ABD/PELVIS WO(KIDNEY STONE) PROCEDURE: CT urinary tract, rule out kidney stone. TECHNIQUE: Multiple contiguous axial images were obtained through the abdomen and pelvis without the use of intravenous contrast. Auto Exposure Controls were utilized during the CT exam to meet ALARA standards for radiation dose reduction. INDICATION: Right anterior flank pain. COMPARISON: 01/24/2019. FINDINGS: Included portions of the lung bases are clear. CT abdomen: Normal appendix is identified. Small bowel loops are nondistended. Since the previous exam, there has been interval development of moderate right-sided hydronephrosis. This is secondary to 2 mm calculus at the right UPJ (image 50, series 2). No other renal or ureteral calculi are seen on either side. Additionally, there is no hydronephrosis or other evidence of obstruction on the left. No focal renal lesions are seen on this noncontrast exam. Liver is diffusely hypodense consistent with underlying hepatic steatosis. Otherwise, the liver, adrenal glands, spleen, and pancreas have an unremarkable noncontrast CT appearance. There is no loculated fluid collection, free fluid, nor free air within the abdomen. No abnormal mesenteric or retroperitoneal adenopathy is seen. Osseous structures show no acute abnormalities. CT pelvis: Urinary bladder is unopacified and minimally distended. No calculi are seen within urinary bladder. There is no loculated fluid collection, free fluid, nor free air within the pelvis. No abnormal adenopathy is seen. Osseous structures show no acute abnormalities. IMPRESSION: 1. 2 mm calculus at the right UPJ resulting in underlying obstruction and moderate right-sided hydronephrosis. 2. Hepatic steatosis. Dictated on workstation # [id number] Dict: 04/02/20 1510 Trans: 04/02/20 1517 [facility] [id number] Interpreted by: CHELSY ESPARZA MD Electronically signed by: Reviewed: Reviewed by Me Departure Impression Primary Impression: Ureteral stone Disposition: HOME, SELF-CARE Condition: Improved Departure-Patient Inst. Decision time for Depature: 16:42 Referrals: [facility] [place] Primary Care Physician IMAN FOLEY (Family) Primary Care Physician THOMAS RAM MD Patient Instructions: Kidney Stones (DC), How to Strain Your Urine Add. Discharge Instructions: Drink plenty of fluids. Take your Naprosyn as prescribed. You may also take Tylenol/acetaminophen 1000 mg every 8 hours as needed for pain. Take other medications as prescribed. Call and make appointment with Dr. Ram for recheck and further evaluation. Call his office in the morning. Return for worse pain, fever, vomiting, weakness, breathing problems or other concerns as needed. Strain your urine and collect stone if found. Scripts Cephalexin (Cephalexin) 500 Mg Tablet 500 MG PO BID, #14 TAB 0 Refills Prov: VARGAS JOSEHP MD 04/02/20 Copy Copies To 1: THOMAS RAM MD, TIMOTHY D MD Apr 02, 2020 14:45
[2020-04-02 14:55] LABS: ALBUMIN 4.2 GM/DL (3.2-4.5); CHLORIDE 106 MMOL/L (98-107)
[2020-04-02 14:56] LABS: POTASSIUM 3.5 MMOL/L (3.6-5.0); SODIUM 137 MMOL/L (135-145)
[2020-04-02 14:57] LABS: CALCIUM 8.8 MG/DL (8.5-10.1)
[2020-04-02 14:58] LABS: GLUCOSE 119 MG/DL (70-105); TOTAL PROTEIN 7.2 GM/DL (6.4-8.2)
[2020-04-02 14:59] LABS: CARBON DIOXIDE 19 MMOL/L (21-32)
[2020-04-02 15:00] LABS: BILIRUBIN,TOTAL 0.3 MG/DL (0.1-1.0)
[2020-04-02 15:01] LABS: ALKALINE PHOSPHATASE 81 U/L (40-136)
[2020-04-02 15:02] LABS: CREATININE SERUM 0.74 MG/DL (0.60-1.30); GFR ESTIMATED > 60
[2020-04-02 15:03] LABS: BUN/CREATININE RATIO 11
[2020-04-02 15:04] LABS: ALANINE AMINOTRANSFERASE 16 U/L (0-55)
--- NOTE | 2020-04-02 15:18 | Diagnostic Imaging Report ---
PROCEDURE: CT urinary tract, rule out kidney stone. TECHNIQUE: Multiple contiguous axial images were obtained through the abdomen and pelvis without the use of intravenous contrast. Auto Exposure Controls were utilized during the CT exam to meet ALARA standards for radiation dose reduction. INDICATION: Right anterior flank pain. COMPARISON: 01/24/2019. FINDINGS: Included portions of the lung bases are clear. CT abdomen: Normal appendix is identified. Small bowel loops are nondistended. Since the previous exam, there has been interval development of moderate right-sided hydronephrosis. This is secondary to 2 mm calculus at the right UPJ (image 50, series 2). No other renal or ureteral calculi are seen on either side. Additionally, there is no hydronephrosis or other evidence of obstruction on the left. No focal renal lesions are seen on this noncontrast exam. Liver is diffusely hypodense consistent with underlying hepatic steatosis. Otherwise, the liver, adrenal glands, spleen, and pancreas have an unremarkable noncontrast CT appearance. There is no loculated fluid collection, free fluid, nor free air within the abdomen. No abnormal mesenteric or retroperitoneal adenopathy is seen. Osseous structures show no acute abnormalities. CT pelvis: Urinary bladder is unopacified and minimally distended. No calculi are seen within urinary bladder. There is no loculated fluid collection, free fluid, nor free air within the pelvis. No abnormal adenopathy is seen. Osseous structures show no acute abnormalities. IMPRESSION: 1. 2 mm calculus at the right UPJ resulting in underlying obstruction and moderate right-sided hydronephrosis. 2. Hepatic steatosis. Dictated by: Dictated on workstation # [id number]
--- NOTE | 2020-04-02 15:54 | NUR ---
AMB TO BATHROOM TO OBTAIN UA REPORTS PAIN BETTER
[2020-04-02 16:04] LABS: CLARITY,URINE CLEAR; COLOR,URINE YELLOW; GLUCOSE, URINE (UA) NEGATIVE (NEGATIVE); KETONES,URINE NEGATIVE (NEGATIVE); LEUKOCYTE ESTERASE ,URINE NEGATIVE (NEGATIVE); NITRITE,URINE NEGATIVE (NEGATIVE); PROTEIN,URINE 2+ (NEGATIVE)
[2020-04-02] MEDS ORDERED: CEPH500T PO (16:29)
[2020-04-02 16:30] LABS: BACTERIA,URINE NEGATIVE /HPF; BILIRUBIN,URINE 1+ (NEGATIVE); RBC,URINE TNTC /HPF; SQUAMOUS EPITHELIAL CELL,UR 0-2 /HPF
--- NOTE | 2020-04-02 16:46 | Diagnostic Imaging Report ---
EXAM: Supine abdomen at 4:07 PM INDICATION: Abdominal pain FINDINGS: The CT abdomen/pelvis exam performed earlier today at 2:59 PM noted a 2 mm calculus at the UPJ on the right. That finding is difficult to identify with certainty on this exam. The small phlebolith low in the pelvis on the left seen previously is again visualized and no different. There is a small amount of gas in both the large and small bowel. This finding is nonspecific. There is no evidence for a bowel obstruction. There is no mass or organomegaly identified. The osseous structures are intact. IMPRESSION: The 2 mm obstructive calculus involving the right collecting system seen on the exam performed earlier today cannot be identified with certainty on this study. There is no other pathological calcification noted. Dictated by: Dictated on workstation # [id number]
[2020-04-02 17:11] VITALS: BP 109/62
== END 2020-04-02 17:11 | disposition home or self-care (01) ==
LOC: EDUNIT# 14:01 → ER 14:03
DX: N13.2 Hydronephrosis with renal and ureteral calculous obstruction (principal); Z88.6 Allergy status to analgesic agent; Z91.040 Latex allergy status; Z79.51 Long term (current) use of inhaled steroids; Z77.22 Contact with and (suspected) exposure to environmental tobacco smoke (acute) (chronic)
CPT/HCPCS: 36415; 74018; 74176; 80053; 81000; 85025; 86141

== ENCOUNTER → 2020-08-02 | Outpatient (CLI) | payer MEDICAID ==
[~2020-08-02] MED LIST changes: +CEPH500T PO
--- NOTE | 2020-08-02 13:02 | Diagnostic Imaging Report ---
INDICATION: Left breast pain and lumps. No prior studies are available for comparison. 2-D and 3-D bilateral diagnostic mammography was performed. There are scattered fibroglandular densities bilaterally. BB markers are placed at the areas of pain and lumps in the upper left breast. No underlying abnormality is seen. No mass or malignant-appearing microcalcifications are seen. Axillae are unremarkable. IMPRESSION: BI-RADS 0 No mammographic features suspicious for malignancy are identified. Even so, directed sonographic interrogation of the areas of palpable abnormality in the upper left breast is recommended and will be performed today. ACR BI-RADS Category 0: Incomplete. (Needs additional imaging evaluation). Result letter will be mailed to the patient. Note: At least 10% of breast cancer is not imaged by mammography. Dictated by: Dictated on workstation # [id number]
--- NOTE | 2020-08-02 14:20 | Diagnostic Imaging Report ---
INDICATION: Lump in the left breast. Correlation is made with the diagnostic mammogram performed earlier same day. Sonographic interrogation area of lump at 11 o'clock location left breast was performed. No sonographic abnormalities detected. No solid or cystic mass is detected. IMPRESSION: BI-RADS Category 1 No sonographic abnormalities identified. Continued close clinical and self breast exams recommended to confirm stability of the palpable abnormality. ACR BI-RADS Category 1: Negative. Result letter will be mailed to the patient. Note: At least 10% of breast cancer is not imaged by mammography. Dictated by: Dictated on workstation # [id number]
== END ==
LOC: RAD 12:45
PROVIDERS: ATTEND Nurse Practitioner Community Health
DX: N63.20 Unspecified lump in the left breast, unspecified quadrant (principal)
CPT/HCPCS: 76642; 77066; G0279; 77062

== ENCOUNTER 2020-09-17 05:34 | Outpatient (RCR) | payer MEDICAID ==
[~2020-09-17] VITALS: Ht 152.4 cm; Wt 82.3 kg
== END 2020-09-17 09:24 | disposition home or self-care (01) ==
LOC: PREOP 05:34
PROVIDERS: ATTEND Surgery
DX: Z01.812 Encounter for preprocedural laboratory examination (principal); L72.9 Follicular cyst of the skin and subcutaneous tissue, unspecified; Z20.828 Contact with and (suspected) exposure to other viral communicable diseases
CPT/HCPCS: 87635

== ENCOUNTER 2020-09-20 09:42 | Day surgery (SDC) | payer MEDICAID ==
[2020-09-20] VITALS (11 sets, daily range): BP systolic 117–139; BP diastolic 76–92
[~2020-09-20] VITALS: Ht 152.4 cm; Wt 82.3 kg
[2020-09-20] MEDS ORDERED: ceFAZolin 2 GM IV Premixed 50 ML IV ONE (10:00)
[2020-09-20] MEDS ORDERED: ONDANSETRON 4 MG/2 ML (SDV) Z0FRAN ONE ×2 (10:06→12:40)
[2020-09-20] MEDS ORDERED: LIDOCAINE PF 2% 5 ML (XYLOCAINE) VIAL ONE (10:06)
[2020-09-20] MEDS ORDERED: MIDAZOLAM 2 MG/2 ML (VERSED) VIAL ONE (10:06)
[2020-09-20] MEDS ORDERED: proPOfol 200 MG/20 ML (DIPRIVAN) VIAL IV ONE (10:06)
[2020-09-20] MEDS ORDERED: fentaNYL INJECTION 100 MCG/2 ML AMP ONE (10:06)
[2020-09-20] MEDS ORDERED: SEVOFLURANE (ULTANE) 15 ML INHAL SOLN ONE ×2 (10:06→12:19)
[2020-09-20] MEDS: LACTATED RINGERS 1,000 ML IV PRN ×2 (10:10→12:56)
[2020-09-20] MEDS ORDERED: LIDOCAINE/EPI 1%-1:200,000 (XYLOCAINE) 30 ML VIAL ONE (10:12)
[2020-09-20] MEDS ORDERED: ROCURONIUM 10 MG/ML 5 ML SYRINGE IV ONE (10:27)
[2020-09-20] MEDS ORDERED: MEPERIDINE (DEMEROL) INJ 50 MG/ML ONE (12:37)
--- NOTE | 2020-09-20 12:56 | Discharge Inst-Simple/Standard ---
Discharge Inst-Standard Patient Instructions/Follow Up Plan of Care/Instructions/FU: 2 weeks Tami for suture removal. For pain take what you would for head ache over the counter. Activity as Tolerated: Yes Discharge Diet: Regular Diet Other Inst to Patient Follow up Appt: Make appointment for 2 week. Instructions: No strenuous activity. May shower in 24 hours, no tub bath or soaking. No Smoking Skin/Wound Care: Keep area clean and dry. Symptoms to Report: Appetite Changes, Extremity Discoloration, Numbness/Tingling, Swelling Increased, Bleeding Excessive, Eyesight Changes, Pain Increased, Urine Color Change, Constipation(Persistent), Fever over 101 degree F, Pain/Pressure in chest, Urinating Difficulty, Cough Up/Vomit Blood, Heart Beat Irreg/Pounding, Pain/Pressure in jaw, Vaginal Bleeding Increase, Cramps in feet or legs, Lightheadedness, Pain/Pressure in shoulder, Diarrhea(Persistent), Memory Changes Suddenly, Questions/Concerns, Weight gain consecutive days, Dizziness/Fainting, Nausea/Vomiting, Shortness of Breath, Weight gain over 2 pounds If questions or concerns contact your physician Or seek help at emergency department. MARTY ZENG DO Sep 20, 2020 12:56
[2020-09-20] MEDS ORDERED: morphine INJ 10 MG/ML 1ML (SYR OR VIAL) IVP ONE (13:00)
[2020-09-20] MEDS ORDERED: ONDANSETRON 4 MG/2 ML (SDV) Z0FRAN IVP PRN (13:00)
[2020-09-20] MEDS ORDERED: morphine INJ 10 MG/ML 1ML (SYR OR VIAL) ONE (13:12)
--- NOTE | 2020-09-21 05:08 | OPERATIVE REPORT ---
DATE OF SERVICE: 09/20/2020 PREOPERATIVE DIAGNOSIS: Scalp cyst x2. POSTOPERATIVE DIAGNOSIS: Scalp cyst x2. PROCEDURE: Excision of scalp cyst x2. Posterior scalp 2.5 cm incision and the top of the scalp 2.2 cm incision. SURGEON: Marty Garrett DO ANESTHESIA: General. ESTIMATED BLOOD LOSS: Minimal. COMPLICATIONS: None. INDICATIONS: The patient is a 40-year-old female, had 2 cysts, which causes her pain and discomfort. She understands risks and benefits of procedure and wished to proceed. Consent was signed in the chart. DESCRIPTION OF PROCEDURE: The patient was taken to the operating suite. She was prepped and draped in sterile fashion. Surgical pause was performed. Local anesthetic was infiltrated around the cyst. A 15 blade scalpel was used to make a small skin incision. The posterior scalp, 2.5 cm. Tenotomy scissors were then used to dissect around the cyst and then the cyst was removed in its entirety. The wound was then irrigated with copious amounts of irrigation, and skin was then closed using Prolene suture. Local anesthetic was infiltrated around the cyst on the top of the scalp, which 15 blade scalpel was used to make a small skin incision. The cyst itself came up to a small questionable opening at the skin. Therefore, an elliptical incision was made, removing this area and the tenotomy scissors were then used to dissect around the cyst down to the subcutaneous tissue until the cyst and skin was removed. Wound was then irrigated with copious amounts of irrigation. Hemostasis was achieved. The skin was then closed using 3-0 Prolene in a simple running fashion. The area was washed and dried and sterile bandage were applied. The patient tolerated procedure well without any complications. She was taken to recovery room in stable condition. Job ID: [id number] DocumentID: [id number] Dictated Date: 09/20/2020 23:06:48 Gambling Broker Date: 09/21/2020 05:07:04 Dictated By: MARTY GARRETT DO
--- NOTE | 2020-09-21 08:08 | Anesthesia-General Post-Op ---
General Significant Intra-Op Events Notes late entry from 09/20/20 at 1330 Patient Condition Mental Status/LOC: Same as Preop Cardiovascular: Satisfactory Nausea/Vomiting: Absent Respiratory: Satisfactory Pain: Controlled Complications: Absent Post Op Complications Complications None Follow Up Care/Instructions Patient Instructions None needed. Anesthesia/Patient Condition Patient Condition Patient is doing well, no complaints, stable vital signs, no apparent adverse anesthesia problems. No complications reported per nursing. MORRIS CABRERA CRNA Sep 21, 2020 08:08
== END 2020-09-20 14:45 | disposition home or self-care (01) ==
LOC: SDC 09:42
PROVIDERS: ATTEND Surgery
DX: L72.11 Pilar cyst (principal); F32.9 Major depressive disorder, single episode, unspecified; K44.9 Diaphragmatic hernia without obstruction or gangrene; Z79.899 Other long term (current) drug therapy; Z91.040 Latex allergy status; Z88.5 Allergy status to narcotic agent
CPT/HCPCS: 87081

== ENCOUNTER 2021-04-09 10:18 | Emergency (ER) | payer MEDICAID ==
[~2021-04-09] VITALS: Ht 152 cm; Wt 92.0 kg
--- NOTE | 2021-04-09 10:45 | ED Abdominal Pain ---
General Stated Complaint: RLQ PAIN Source of Information: Patient Exam Limitations: No Limitations History of Present Illness Date Seen by Provider: Apr 09, 2021 Time Seen by Provider: 10:32 Initial Comments Patient is a 40-year-old female who presents to the emergency department today with a chief complaint of bloody stools since Thursday. Patient states that she has had increasing abdominal pain periumbilically and in the right lower quadrant. She states it radiates into her back. She is nauseous but has not had any vomiting. She has had decreased appetite/loss of appetite. She has not had her appendix removed. Patient has had previous hysterectomy and cholecystectomy. Patient states the pain has been gradual in onset. Last oral intake was a couple of sips of coffee at 530 this morning. No food since last night. Patient has had 2 prior colonoscopies which were unremarkable her last one was about 2 years ago she thinks. No burning with urination urgency or frequency. All other review of systems reviewed and negative except as stated above. Timing/Duration: 2-3 Days Severity/Quality: Severe, Cramping, Sharp Location: RLQ Radiation: Back Activities at Onset: None Associated Symptoms: Back Pain, Nausea/Vomiting Allergies and Home Medications Allergies Coded Allergies: NSAIDS (Non-Steroidal Anti-Inflamma (Verified Allergy, Unknown, 09/22/16) latex (Verified Allergy, Unknown, 05/07/06) Home Medications Cetirizine HCl 10 Mg Capsule, 10 MG PO NEEDED, (Reported) Ciprofloxacin HCl 500 Mg Tablet, 500 MG PO BID Prescribed by: COLEEN CHING on 04/09/211427 Colesevelam HCl 625 Mg Tablet, 625 MG PO TID, (Reported) Fluticasone Propionate 9.9 Ml [place].susp, 1 SPRAY NS DAILY, (Reported) 1 SPRAY EACH NARE DAILY Hydrocodone/Acetaminophen 1 Each Tablet, 1 EACH PO Q6H Prescribed by: COLEEN CHING on 04/09/211427 Metronidazole 500 Mg Tablet, 500 MG PO TID Prescribed by: COLEEN CHING on 04/09/211427 Ondansetron 4 Mg Tab.rapdis, 4 MG PO Q8H Prescribed by: COLEEN CHING on 04/09/211427 Patient Home Medication List Home Medication List Reviewed: Yes Review of Systems Review of Systems Constitutional: see HPI EENTM: No Symptoms Reported Respiratory: No Symptoms Reported Cardiovascular: No Symptoms Reported Gastrointestinal: Abdomen Distended, Abdominal Pain, Blood Streaked Stools, Nausea, Poor Appetite Genitourinary: No Symptoms Reported Musculoskeletal: no symptoms reported Skin: no symptoms reported All Other Systems Reviewed Negative Unless Noted: Yes Past Hiktmwp-Purfwo-Olknvi Hx Patient Social History Type Used: Electronic/Vapor 2nd Hand Smoke Exposure: Yes Recent Hopitalizations: No Immunizations Up To Date Tetanus Booster (TDap): Unknown Seasonal Allergies Seasonal Allergies: Yes Past Medical History Surgeries: Yes ( LEFT KNEE SCOPE, C/S X2) Section, Gallbladder, Hysterectomy, Orthopedic, Tubal Ligation Respiratory: No Currently Using CPAP: No Currently Using BIPAP: No Cardiac: No Neurological: No Reproductive Disorders: Yes (FIBROID TUMORS IN UTERUS) 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 oz. 87.513366vn; 35.43 BMI Method:Stated General Appearance: WD/WN, no apparent distress HEENT: normal ENT inspection Neck: full range of motion Respiratory: normal breath sounds, no respiratory distress, no accessory muscle use Cardiovascular: regular rate, rhythm Gastrointestinal: soft, abnormal bowel sounds (Hypoactive), guarding (Involuntary guarding), tenderness (Periumbilical, right lower quadrant), other (Positive heeltap, positive Rovsing's, positive psoas sign) Genital/Rectal: normal rectal exam, heme negative stool Extremities: normal inspection, no pedal edema Neurologic/Psychiatric: alert, normal mood/affect, oriented x 3 Skin: normal color, warm/dry Progress/Results/Core Measures Results/Orders Lab Results Laboratory Tests Test 04/09/21 10:25 04/09/21 10:40 Range/Units Urine Color YELLOW Urine Clarity CLEAR Urine pH 7.5 5-9 Urine Specific [place] 1.020 1.016-1.022 Urine Protein NEGATIVE NEGATIVE Urine Glucose (UA) NEGATIVE NEGATIVE Urine Ketones NEGATIVE NEGATIVE Urine Nitrite NEGATIVE NEGATIVE Urine Bilirubin NEGATIVE NEGATIVE Urine Urobilinogen 0.2 < = 1.0 MG/DL Urine Leukocyte Esterase NEGATIVE NEGATIVE Urine RBC (Auto) NEGATIVE NEGATIVE Urine RBC NONE /HPF Urine WBC 0-2 /HPF Urine Squamous Epithelial Cells 10-25 H /HPF Urine Crystals NONE /LPF Urine Bacteria MODERATE H /HPF Urine Casts NONE /LPF Urine Mucus SMALL H /LPF Urine Yeast FEW H /HPF Urine Culture Indicated YES White Blood Count 7.7 4.3-11.0 10^3/uL Red Blood Count 4.35 3.80-5.11 10^6/uL Hemoglobin 13.5 11.5-16.0 g/dL Hematocrit 39 35-52 % Mean Corpuscular Volume 90 80-99 fL Mean Corpuscular Hemoglobin 31 25-34 pg Mean Corpuscular Hemoglobin Concent 34 32-36 g/dL Red Cell Distribution Width 12.0 10.0-14.5 % Platelet Count 303 130-400 10^3/uL Mean Platelet Volume 9.3 9.0-12.2 fL Immature Granulocyte % (Auto) 0 % Neutrophils (%) (Auto) 45 42-75 % Lymphocytes (%) (Auto) 47 H 12-44 % Monocytes (%) (Auto) 6 0-12 % Eosinophils (%) (Auto) 1 0-10 % Basophils (%) (Auto) 1 0-10 % Neutrophils # (Auto) 3.5 1.8-7.8 10^3/uL Lymphocytes # (Auto) 3.6 1.0-4.0 10^3/uL Monocytes # (Auto) 0.5 0.0-1.0 10^3/uL Eosinophils # (Auto) 0.1 0.0-0.3 10^3/uL Basophils # (Auto) 0.1 0.0-0.1 10^3/uL Immature Granulocyte # (Auto) 0.0 0.0-0.1 10^3/uL Sodium Level 138 135-145 MMOL/L Potassium Level 4.3 3.6-5.0 MMOL/L Chloride Level 102 98-107 MMOL/L Carbon Dioxide Level 21 21-32 MMOL/L Anion Gap 15 H 5-14 MMOL/L Blood Urea Nitrogen 7 7-18 MG/DL Creatinine 0.78 0.60-1.30 MG/DL Estimat Glomerular Filtration Rate > 60 BUN/Creatinine Ratio 9 Glucose Level 130 H 70-105 MG/DL Calcium Level 9.0 8.5-10.1 MG/DL My Orders Orders - COLEEN CHING MD Ed Iv/Invasive Line Start (04/09/21 10:45) Cbc With Automated Diff (04/09/21 10:45) Basic Metabolic Panel (04/09/21 10:45) Ct Abdomen/Pelvis Wo (04/09/21 10:46) Fentanyl Inj (Sublimaze Injection) (04/09/21 11:00) Ua Culture If Indicated (04/09/21 12:18) Urine Culture (04/09/21 10:25) Us Non Ob Transvaginal [id number] (04/09/21 12:38) Fentanyl Inj (Sublimaze Injection) (04/09/21 14:15) Medications Given in ED Current Medications Medications Dose Ordered Sig/Micki Route Start Time Stop Time Status Last Admin Dose Admin Fentanyl Citrate 50 mcg ONCE ONCE IVP 04/09/21 11:00 04/09/21 11:01 DC 04/09/21 11:19 50 MCG Fentanyl Citrate 50 mcg ONCE ONCE IVP 04/09/21 14:15 04/09/21 14:16 DC 04/09/21 14:20 50 MCG Vital Signs/I&O 04/09/21 04/09/21 10:25 14:57 Temp 36.8 Pulse 90 81 Resp 18 16 B/P (MAP) 149/105 (120) 110/80 Pulse Ox 97 O2 Delivery Room Air Progress Progress Note : Time: 12:39 Progress Note Case discussed with Dr. Zeng, recommends transvaginal ultrasound to evaluate right ovary. We will get this done pending his evaluation of the patient here in the emergency department. [id number] Zeng here in the emergency department. He has reviewed the CT scan with the radiologist. He feels like there may be some early changes consistent with right-sided colitis on the scan. Recommends home with pain medications Cipro and Flagyl. Patient will follow up outpatient with [facility] and can follow-up as well with Dr. Zeng if necessary. Patient is given good ret urn precautions. She verbalized understanding. All questions are sought and answered. Patient is stable for discharge. Diagnostic Imaging Diagonstic Imaging: CT, Ultrasound Comments [facility] [place], [place] NAME: TOBY SERRATO [facility] REC#: [id number] PT STATUS: REG ER : 1980 PHYSICIAN: COLEEN CHING MD ADMIT DATE: 04/09/21/ER Draft Date of Exam:04/09/21 US NON OB TRANSVAGINAL [id number] CLINICAL INDICATION: Patient with right pelvic pain, and severe recent bloody stools. Patient has history of hysterectomy 13 years ago. EXAM: Transabdominal and transvaginal ultrasound of the pelvis. COMPARISON: CT scan of the abdomen and pelvis without contrast dated 04/09/2021. FINDINGS: The uterus is surgically absent. There is no abnormality or visible mass in the pelvis seen. The right ovary has normal appearance and configuration with a small subcentimeter follicle seen. The right ovary measures 2.7 cm x 1.6 cm x 2.0 cm. The right ovary demonstrates normal spectral Doppler waveform and Doppler flow. The left ovary is not seen and unable to be evaluated. There is no free fluid in the pelvis. IMPRESSION: 1: The left ovary is not seen on this exam and cannot be evaluated. 2: The right ovary is unremarkable. 3: Hysterectomy. Dictated on workstation # [id number] Dict: 04/09/21 1343 Trans: 04/09/21 1352 AS6 [id number] Interpreted by: JENNY CHANEY MD Electronically signed by: [facility] [place], [place] NAME: TOBY SERRATO [facility] REC#: [id number] PT STATUS: REG ER : 1980 PHYSICIAN: COLEEN CHING MD ADMIT DATE: 04/09/21/ER Signed Date of Exam:04/09/21 CT ABDOMEN/PELVIS WO EXAMINATION: CT abdomen and pelvis without contrast. TECHNIQUE: Multiple contiguous axial images were obtained through the abdomen and pelvis without the use of intravenous contrast. All CT scans use one or more of the following dose optimizing techniques: automated exposure control, MA and/or KvP adjustment based on patient size and exam type or iterative reconstruction. HISTORY: Right lower quadrant and periumbilical abdominal pain. COMPARISON: CT abdomen and pelvis from 04/02/2020. FINDINGS: Lung bases: The lung bases are clear. Solid organs: There is diffuse hypoattenuation of the liver, compatible with hepatic steatosis. The gallbladder is surgically absent. There is no biliary ductal dilation. Pancreas is normal. Spleen is normal. Adrenal glands are normal. The kidneys are normal without visualized calculus or hydronephrosis. Bowel: The stomach and small bowel are normal without obstruction. The colon is decompressed which limits evaluation. The appendix is normal without findings of acute appendicitis. Peritoneum: There is no intraperitoneal free fluid or free air. No suspicious lymphadenopathy. Vasculature: Normal without aneurysm. Musculoskeletal: No suspicious osseous lesion or compression fracture. Pelvis: The uterus is surgically absent. No adnexal mass. The urinary bladder is normal. IMPRESSION: 1. No acute abnormality in the abdomen or pelvis. 2. Hepatic steatosis. Dictated by: Dictated on workstation # [id number] Dict: 04/09/21 1121 Trans: 04/09/21 1131 AS6 [id number] Interpreted by: ANALIA MOSQUERA DO Electronically signed by: ANALIA MOSQUERA DO 04/09/21 1131 Departure Impression Primary Impression: Abdominal pain Additional Impression: Colitis Disposition: 01 HOME, SELF-CARE Condition: Stable Departure-Patient Inst. Decision time for Depature: 14:25 Referrals: [facility] (PCP) Primary Care Physician ASHANTI SANDERS APRN (Family) Primary Care Physician MARTY ZENG DO Patient Instructions: Abdominal Pain, Adult ED, Colitis (DC) Add. Discharge Instructions: Drink plenty of fluids to stay well-hydrated. Take pain and nausea medications as needed every 6 and 8 hours. Take the antibiotics for the next 7 days until they are gone. [facility] with [facility] and Dr. Zeng as needed. Return to the emergency department for reevaluation if you have worsening pain especially associated with fever, vomiting or any other emergent concerning symptoms. Scripts Fluconazole (Diflucan) 200 Mg Tablet 200 MG PO ONCE, #2 TAB take one pill on day one and repeat in 7 days Prov: COLEEN CHING MD 04/09/21 Metronidazole (Flagyl) 500 Mg Tablet 500 MG PO TID for 7 Days, #21 TAB Prov: COLEEN CHING MD 04/09/21 Ciprofloxacin HCl (Ciprofloxacin HCl) 500 Mg Tablet 500 MG PO BID, #14 TAB Prov: COLEEN CHING MD 04/09/21 Hydrocodone/Acetaminophen (Hydrocodone-Acetamin 5-300 mg) 1 Each Tablet 1 EACH PO Q6H for Pain, #15 TAB Prov: COLEEN CHING MD 04/09/21 Ondansetron (Ondansetron Odt) 4 Mg Tab.rapdis 4 MG PO Q8H for nausea, #15 TAB Prov: COLEEN CHING MD 04/09/21 COLEEN CHING MD Apr 09, 2021 10:45
[2021-04-09 10:50] LABS: BASOPHILS # (AUTO) 0.1 10^3/uL (0.0-0.1); BASOPHILS % (AUTO) 1 % (0-10); EOSINOPHILS # (AUTO) 0.1 10^3/uL (0.0-0.3); EOSINOPHILS % (AUTO) 1 % (0-10); HEMATOCRIT 39 % (35-52); HEMOGLOBIN 13.5 g/dL (11.5-16.0); LYMPHOCYTES # (AUTO) 3.6 10^3/uL (1.0-4.0); LYMPHOCYTES % (AUTO) 47 % (12-44); MEAN CORPUSCULAR HEMOGLOBIN 31 pg (25-34); MEAN CORPUSCULAR HGB CONC 34 g/dL (32-36); MEAN CORPUSCULAR VOLUME 90 fL (80-99); MEAN PLATELET VOLUME 9.3 fL (9.0-12.2); MONOCYTES # (AUTO) 0.5 10^3/uL (0.0-1.0); MONOCYTES % (AUTO) 6 % (0-12); NEUTROPHILS # (AUTO) 3.5 10^3/uL (1.8-7.8); NEUTROPHILS % (AUTO) 45 % (42-75); PLATELET COUNT 303 10^3/uL (130-400); WHITE BLOOD COUNT 7.7 10^3/uL (4.3-11.0)
[2021-04-09] MEDS ORDERED: fentaNYL INJ 100 MCG/2 ML AMP IVP ONE ×2 (11:00→14:15)
[2021-04-09 11:05] LABS: CHLORIDE 102 MMOL/L (98-107); POTASSIUM 4.3 MMOL/L (3.6-5.0); SODIUM 138 MMOL/L (135-145)
[2021-04-09 11:07] LABS: GLUCOSE 130 MG/DL (70-105)
[2021-04-09 11:08] LABS: CARBON DIOXIDE 21 MMOL/L (21-32)
[2021-04-09 11:10] LABS: CREATININE SERUM 0.78 MG/DL (0.60-1.30); GFR ESTIMATED > 60
[2021-04-09 11:11] LABS: BUN/CREATININE RATIO 9
--- NOTE | 2021-04-09 11:27 | Diagnostic Imaging Report ---
EXAMINATION: CT abdomen and pelvis without contrast. TECHNIQUE: Multiple contiguous axial images were obtained through the abdomen and pelvis without the use of intravenous contrast. All CT scans use one or more of the following dose optimizing techniques: automated exposure control, MA and/or KvP adjustment based on patient size and exam type or iterative reconstruction. HISTORY: Right lower quadrant and periumbilical abdominal pain. COMPARISON: CT abdomen and pelvis from 04/02/2020. FINDINGS: Lung bases: The lung bases are clear. Solid organs: There is diffuse hypoattenuation of the liver, compatible with hepatic steatosis. The gallbladder is surgically absent. There is no biliary ductal dilation. Pancreas is normal. Spleen is normal. Adrenal glands are normal. The kidneys are normal without visualized calculus or hydronephrosis. Bowel: The stomach and small bowel are normal without obstruction. The colon is decompressed which limits evaluation. The appendix is normal without findings of acute appendicitis. Peritoneum: There is no intraperitoneal free fluid or free air. No suspicious lymphadenopathy. Vasculature: Normal without aneurysm. Musculoskeletal: No suspicious osseous lesion or compression fracture. Pelvis: The uterus is surgically absent. No adnexal mass. The urinary bladder is normal. IMPRESSION: 1. No acute abnormality in the abdomen or pelvis. 2. Hepatic steatosis. Dictated by: Dictated on workstation # [id number]
[2021-04-09 12:25] LABS: BILIRUBIN,URINE NEGATIVE (NEGATIVE); CLARITY,URINE CLEAR; COLOR,URINE YELLOW; GLUCOSE, URINE (UA) NEGATIVE (NEGATIVE); KETONES,URINE NEGATIVE (NEGATIVE); LEUKOCYTE ESTERASE ,URINE NEGATIVE (NEGATIVE); NITRITE,URINE NEGATIVE (NEGATIVE); PH,URINE 7.5 (5-9); PROTEIN,URINE NEGATIVE (NEGATIVE)
[2021-04-09 12:32] LABS: BACTERIA,URINE MODERATE /HPF; WBC,URINE 0-2 /HPF; YEAST,URINE FEW /HPF
--- NOTE | 2021-04-09 13:52 | Diagnostic Imaging Report ---
CLINICAL INDICATION: Patient with right pelvic pain, and severe recent bloody stools. Patient has history of hysterectomy 13 years ago. EXAM: Transabdominal and transvaginal ultrasound of the pelvis. COMPARISON: CT scan of the abdomen and pelvis without contrast dated 04/09/2021. FINDINGS: The uterus is surgically absent. There is no abnormality or visible mass in the pelvis seen. The right ovary has normal appearance and configuration with a small subcentimeter follicle seen. The right ovary measures 2.7 cm x 1.6 cm x 2.0 cm. The right ovary demonstrates normal spectral Doppler waveform and Doppler flow. The left ovary is not seen and unable to be evaluated. There is no free fluid in the pelvis. IMPRESSION: 1: The left ovary is not seen on this exam and cannot be evaluated. 2: The right ovary is unremarkable. 3: Hysterectomy. Dictated by: Dictated on workstation # [id number]
[2021-04-09] MEDS ORDERED: KETOROLAC 30 MG/ML VIAL ONE (14:13)
[2021-04-09] MEDS ORDERED: HYDR-4132 PO (14:28)
[2021-04-09] MEDS ORDERED: METR500T PO (14:28)
[2021-04-09] MEDS ORDERED: ONDA4TAB11 PO (14:28)
[2021-04-09] MEDS ORDERED: CIPR500T5 PO (14:28)
--- NOTE | 2021-04-09 14:31 | Consultation - Surgery ---
History of Present Illness History of Present Illness Patient Consulted On(jero/time) 04/09/21 14:31 Date Seen by Provider: Apr 09, 2021 Time Seen by Provider: 14:31 History of Present Illness Consult requested by Dr. Ching for right-sided abdominal pain. Patient is a 40-year-old female who presents emergency department with bloody stools for approximately 3 days. Patient states that she was not having any pain but she went to a walk-in clinic and was referred to my office to discuss her blood per stool. Its red in color. She has it on most bowel movements. She states nothing seems to make it better or worse. Today she began developing pain that she states is severe. Pain medication is helping. Nothing seems to make it worse except for movement and certain positions. She states that she is also having some back pain related to her abdominal pain it seems to radiate around her right side. She has not really had anything like this before. She has some nausea but no emesis. She had a CT scan that did not show any acute abnormality however I reviewed the scan question of there is some slight early colitis of the ascending colon. The appendix appears normal. Patient has normal white blood cell count as well. Allergies and Home Medications Allergies Coded Allergies: NSAIDS (Non-Steroidal Anti-Inflamma (Verified Allergy, Unknown, 09/22/16) latex (Verified Allergy, Unknown, 05/07/06) Home Medications Cetirizine HCl 10 Mg Capsule, 10 MG PO NEEDED, (Reported) Ciprofloxacin HCl 500 Mg Tablet, 500 MG PO BID Prescribed by: COLEEN CHING on 04/09/21 1428 Colesevelam HCl 625 Mg Tablet, 625 MG PO TID, (Reported) Fluconazole 200 Mg Tablet, 200 MG PO ONCE take one pill on day one and repeat in 7 days Prescribed by: COLEEN CHING on 04/09/21 1506 Fluticasone Propionate 9.9 Ml [place].susp, 1 SPRAY NS DAILY, (Reported) 1 SPRAY EACH NARE DAILY Hydrocodone/Acetaminophen 1 Each Tablet, 1 EACH PO Q6H Prescribed by: COLEEN CHING on 04/09/21 1428 Metronidazole 500 Mg Tablet, 500 MG PO TID Prescribed by: COLEEN CHING on 04/09/21 1428 Ondansetron 4 Mg Tab.rapdis, 4 MG PO Q8H Prescribed by: COLEEN CHING on 04/09/21 1428 Patient Home Medication List Home Medication List Reviewed: Yes Past Bbqqbmh-Ptasah-Jmnneb Hx Patient Social History Type Used: Electronic/Vapor 2nd Hand Smoke Exposure: Yes Recent Hopitalizations: No Immunizations Up To Date Tetanus Booster (TDap): Unknown Seasonal Allergies Seasonal Allergies: Yes Surgeries History of Surgeries: Yes ( LEFT KNEE SCOPE, C/S X2) Surgeries: Section, Gallbladder, Hysterectomy, Orthopedic, Tubal Ligation Respiratory History of Respiratory Disorde: No Cardiovascular History of Cardiac Disorders: No Neurological History of Neurological Disord: No Reproductive System Hx Reproductive Disorders: Yes (FIBROID TUMORS IN UTERUS) Sexually Transmitted Disease: No FORGING 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 SINKER History: Hysterectomy Genitourinary History of Genitourinary Disor: No Gastrointestinal History of Gastrointestinal Di: Yes Gastrointestinal Disorders: Hiatal Hernia Musculoskeletal History of Musculoskeletal Dis: No Endocrine History of Endocrine Disorders: No HEENT History of HEENT Disorders: No Cancer History of Cancer: No Psychosocial History of Psychiatric Problem: Yes Behavioral Health Disorders: Depression Integumentary History of Skin or Integumenta: No Blood Transfusions History of Blood Disorders: No Reviewed Nursing Assessment Reviewed/Agree w Nursing PMH: Yes Family Medical History Significant Family History: No Pertinent Family Hx Review of Systems-General Constitutional: No chills, No diaphoresis EENTM: No blurred vision, No mouth pain Respiratory: No cough, No dyspnea on exertion Cardiovascular: No chest pain, No palpitations Gastrointestinal: RLQ; No constipation, No hematemesis; nausea; No vomiting Genitourinary: No decreased output, No discharge Musculoskeletal: back pain; No joint pain Skin: No change in color, No change in hair/nails Psychiatric/Neurological: Denies Anxiety, Denies Depressed, Denies Emotional Problems All Other Systems Reviewed Negative Unless Noted: Yes (Negative excepted noted.) Physical Exam-General Problems Physical Exam Vital Signs Vital Signs - First Documented 04/09/21 10:25 Temp 36.8 Pulse 90 Resp 18 B/P (MAP) 149/105 (120) Capillary Refill : Less Than 3 Seconds General Appearance: WD/WN, no apparent distress HEENT: PERRL/EOMI, normal ENT inspection Neck: non-tender, supple Respiratory: chest non-tender, no respiratory distress, no accessory muscle use Cardiovascular: regular rate, rhythm, no JVD Gastrointestinal: soft; No guarding, No rebound; tenderness (right sided abdominal pain) Rectal: deferred Back: no CVA tenderness, no vertebral tenderness Extremities: non-tender, normal inspection, no pedal edema Neurologic/Psychiatric: master merchandiser II-XII nml as tested, alert, normal mood/affect, oriented x 3 Skin: normal color, warm/dry Lymphatic: no adenopathy Data Review Labs Laboratory Tests 04/09/21 10:25: Urine Color YELLOW, Urine Clarity CLEAR, Urine pH 7.5, Urine Specific [place] 1.020, Urine Protein NEGATIVE, Urine Glucose (UA) NEGATIVE, Urine Ketones NEGATIVE, Urine Nitrite NEGATIVE, Urine Bilirubin NEGATIVE, Urine Urobilinogen 0.2, Urine Leukocyte Esterase NEGATIVE, Urine RBC (Auto) NEGATIVE, Urine RBC NONE, Urine WBC 0-2, Urine Squamous Epithelial Cells 10-25H, Urine Crystals NONE, Urine Bacteria MODERATEH, Urine Casts NONE, Urine Mucus SMALLH, Urine Yeast FEWH, Urine Culture Indicated YES 04/09/21 10:40: White Blood Count 7.7, Red Blood Count 4.35, Hemoglobin 13.5, Hematocrit 39, Mean Corpuscular Volume 90, Mean Corpuscular Hemoglobin 31, Mean Corpuscular Hemoglobin Concent 34, Red Cell Distribution Width 12.0, Platelet Count 303, Mean Platelet Volume 9.3, Immature Granulocyte % (Auto) 0, Neutrophils (%) (Auto) 45, Lymphocytes (%) (Auto) 47H, Monocytes (%) (Auto) 6, Eosinophils (%) (Auto) 1, Basophils (%) (Auto) 1, Neutrophils # (Auto) 3.5, Lymphocytes # (Auto) 3.6, Monocytes # (Auto) 0.5, Eosinophils # (Auto) 0.1, Basophils # (Auto) 0.1, Immature Granulocyte # (Auto) 0.0, Sodium Level 138, Potassium Level 4.3, Chloride Level 102, Carbon Dioxide Level 21, Anion Gap 15H, Blood Urea Nitrogen 7, Creatinine 0.78, Estimat Glomerular Filtration Rate > 60, BUN/Creatinine Ratio 9, Glucose Level 130H, Calcium Level 9.0 Assessment/Plan Assessment/Plan Assessment/Plan Right-sided abdominal pain Blood in stool Suspect a sending colitis Patient 40-year-old female with right sided abdominal pain. Patient has been having some episodes of blood in the stool as well. Her CT scan was normal on my review I feel there might be some early ascending colitis. The appendix appears normal. Physical exam patient does have exam that is tender on the right side. I do not feel that it is a surgical abdomen. I feel the patient should be treated with conservative measures. Instructed her to stay on a liquid diet for 3 days and then slowly advance as long as her pain is resolved. If her pain continues to increase informed her to return return back to the hospital for reevaluation. Patient will need colonoscopy for further evaluation of blood in her stool which we will set up in approximately 6 weeks after resolu tion of her symptoms. Unless circumstances change to where we need to do earlier. Patient agrees with plan. MARTY ZENG DO Apr 09, 2021 14:31
[2021-04-09 14:57] VITALS: BP 110/80
[2021-04-09] MEDS ORDERED: FLUC200T PO (15:06)
== END 2021-04-09 14:57 | disposition home or self-care (01) ==
LOC: EDUNIT# 10:18 → ER 10:19
DX: K52.9 Noninfective gastroenteritis and colitis, unspecified (principal); Z77.22 Contact with and (suspected) exposure to environmental tobacco smoke (acute) (chronic); Z88.6 Allergy status to analgesic agent; Z91.040 Latex allergy status
CPT/HCPCS: 36415; 74176; 76830; 80048; 81000; 82274; 85025; 87088

== ENCOUNTER 2021-05-14 05:30 | Outpatient (RCR) | payer MEDICAID ==
[~2021-05-14] VITALS: Ht 152.4 cm; Wt 93.8 kg
[~2021-05-14 05:30] MED LIST changes: +CIPR500T5 PO; +FLUC200T PO; +HYDR-4132 PO; +MULT-1136 PO; +NF-VITD400 PO; +ONDA4TAB11 PO
[2021-05-16] MEDS ORDERED: PANT40TA2 PO (12:34)
== END 2021-05-14 10:17 | disposition home or self-care (01) ==
LOC: PREOP 05:30
PROVIDERS: ATTEND Surgery
DX: Z01.812 Encounter for preprocedural laboratory examination (principal); K21.9 Gastro-esophageal reflux disease without esophagitis; K92.1 Melena; Z20.822 Contact with and (suspected) exposure to COVID-19
CPT/HCPCS: 87635

== ENCOUNTER 2021-05-16 10:38 | Day surgery (SDC) | payer MEDICAID ==
[~2021-05-16] VITALS: Ht 152.4 cm; Wt 93.8 kg
[2021-05-16] MEDS ORDERED: LACTATED RINGERS 1,000 ML IV STA (10:48)
[2021-05-16] MEDS ORDERED: LACTATED RINGERS 1,000 ML IV ONE (10:56)
[2021-05-16] MEDS ORDERED: HURRICAINE EXT TUBE (BENZOCAINE) XX PRN (11:00)
--- NOTE | 2021-05-16 11:02 | Progress Note-Pre Operative ---
Pre-Operative Progress Note H&P Reviewed The H&P was reviewed, patient examined and no changes noted. Date Seen by Provider: May 16, 2021 Time Seen by Provider: 11:02 Date H&P Reviewed: May 16, 2021 Time H&P Reviewed: 11:02 Pre-Operative Diagnosis: blood in stools, gerd MARTY ZENG DO May 16, 2021 11:02
[2021-05-16 11:04] VITALS: BP 128/93
[2021-05-16] MEDS ORDERED: PROPOFOL INJECTION 50 ML IV ONE ×2 (11:43→12:06)
[2021-05-16] MEDS ORDERED: PANT40TA2 PO (12:34)
--- NOTE | 2021-05-16 12:34 | Discharge Inst-Simple/Standard ---
Discharge Inst-Standard Discharge Medications New, Converted or Re-Newed RX: Transmitted to Pharmacy Patient Instructions/Follow Up Plan of Care/Instructions/FU: 2 weeks Tami Activity as Tolerated: Yes Discharge Diet: Regular Diet MARTY ZENG DO May 16, 2021 12:34
[2021-05-16 12:35] VITALS: BP 96/53
--- NOTE | 2021-05-16 12:39 | Progress Note-Post Operative ---
Post-Operative Progess Note Surgeon (s)/Manager Neonatal (s) Surgeon MARTY ZENG DO Manager Neonatal: na Pre-Operative Diagnosis blood in stools, gerd Post-Operative Diagnosis small hiatal hernia, gastritis, internal hemorrhoids Procedure & Operative Findings Date of Procedure 05/16/21 Procedure Performed/Findings egd c biopsies, colonoscopy Anesthesia Type per debt counselor Estimated Blood Loss Estimated blood loss (mL): none Specimens/Packing Specimens Removed antrum ge MARTY ZENG DO May 16, 2021 12:39
[2021-05-16 12:40] VITALS: BP 120/60
--- NOTE | 2021-05-16 12:43 | Anesthesia-General Post-Op ---
MAC Patient Condition Mental Status/LOC: Same as Preop Cardiovascular: Satisfactory Nausea/Vomiting: Absent Respiratory: Satisfactory Pain: Controlled Complications: Absent Post Op Complications Complications None Follow Up Care/Instructions Patient Instructions None needed. Anesthesiology Discharge Order Discharge Order Patient is doing well, no complaints, stable vital signs, no apparent adverse anesthesia problems. No complications reported per nursing. KENDAL NIETO CRNA May 16, 2021 12:43
[2021-05-16 13:05] VITALS: BP 115/82
[2021-05-16 13:15] VITALS: BP 115/82
--- NOTE | 2021-05-16 16:25 | OPERATIVE REPORT ---
DATE OF SERVICE: 05/16/2021 PREOPERATIVE DIAGNOSES: Blood in stools, gastroesophageal reflux disease. POSTOPERATIVE DIAGNOSES: Small hiatal hernia, gastritis, internal hemorrhoids. PROCEDURE: EGD with biopsies, colonoscopy. SURGEON: Marty Garrett DO ANESTHESIA: Per TROPHY ASSEMBLER. ESTIMATED BLOOD LOSS: None. COMPLICATIONS: None. INDICATIONS: The patient is a 40-year-old female with blood in stools and GERD symptoms. She understands risks and benefits of procedure and wished to proceed with procedure. Consent was signed in the chart. DESCRIPTION OF PROCEDURE: The patient was taken to the endoscopy suite, placed in left lateral recumbent position. Timeout was performed. Scope was inserted in mouth, down the esophagus, stomach and into the duodenum without difficulty. There were no polyps, masses or ulcerations within the duodenum. Scope was slowly retracted back into the stomach where it was further insufflated. No polyps, masses or ulcerations. Erythematous changes present consistent with gastritis. Biopsy of the antrum was obtained. Scope was retroflexed noting a small hiatal hernia, no other pathology. Scope was returned to its normal position. Biopsy of the antrum was obtained. Scope was then slowly retracted back to the distal esophagus where biopsy of GE junction was obtained. Slight erythematous changes present. Questionable reflux esophagitis. No polyps, masses or ulcerations. Scope was slowly retracted back until completely removed. The patient tolerated procedure well without any complications. Digital rectal exam was performed noting internal hemorrhoids. No palpable polyps, masses or ulcerations. Scope was inserted in the rectum and advanced all the way to cecum with minimal difficulty. Prep was adequate with irrigation and suction. Scope was then slowly retracted back. There were no polyps, masses or ulcerations within the cecum, ascending, transverse, descending, sigmoid colon and rectum. Scope was retroflexed within the rectum and noting no other pathology, which was then returned to its normal position and then slowly withdrawn until completely removed. The patient tolerated the procedure well without any complications. We recommended starting Protonix 40 mg daily and see how her symptoms improve. We will discuss hemorrhoid procedure if the patient's hemorrhoids are bothersome. No source of bleeding identified at the time of endoscopy. If the patient has any return of symptoms, she should be seen at that time. Otherwise, continue have repeat colonoscopy with routine screening guidelines. Job ID: [id number] DocumentID: [id number] Dictated Date: 05/16/2021 12:42:50 Disease Management Nurse Date: 05/16/2021 16:24:57 Dictated By: MARTY GARRETT DO
== END 2021-05-16 13:15 | disposition home or self-care (01) ==
LOC: ENDO 10:38
PROVIDERS: ATTEND Surgery
DX: K21.00 Gastro-esophageal reflux disease with esophagitis, without bleeding (principal); K29.70 Gastritis, unspecified, without bleeding; K64.8 Other hemorrhoids; K44.9 Diaphragmatic hernia without obstruction or gangrene; E66.9 Obesity, unspecified; F32.9 Major depressive disorder, single episode, unspecified; Z79.2 Long term (current) use of antibiotics; Z79.51 Long term (current) use of inhaled steroids; Z68.41 Body mass index [BMI] 40.0-44.9, adult; Z91.040 Latex allergy status; Z79.899 Other long term (current) drug therapy; Z79.891 Long term (current) use of opiate analgesic; Z90.49 Acquired absence of other specified parts of digestive tract; Z87.19 Personal history of other diseases of the digestive system
CPT/HCPCS: 88305

== ENCOUNTER 2023-05-03 08:41 | Emergency (ER) | payer MEDICAID ==
[~2023-05-03] VITALS: Ht 152 cm; Wt 70.0 kg
[~2023-05-03 08:41] MED LIST changes: +COLE625T30 PO; -COLE625T9 PO
[2023-05-03] MEDS ORDERED: fentaNYL INJ 100 MCG/2 ML AMP IVP STA ×2 (08:58→10:41)
[2023-05-03] MEDS ORDERED: ASPIRIN 81 MG CHEW (CHILDREN'S ASA) PO STA ×2 (08:58→09:07)
[2023-05-03 09:00] LABS: BASOPHILS % (AUTO) 0 % (0-10); EOSINOPHILS # (AUTO) 0.1 10^3/uL (0.0-0.3); EOSINOPHILS % (AUTO) 2 % (0-10); HEMATOCRIT 40 % (35-52); HEMOGLOBIN 14.3 g/dL (11.5-16.0); LYMPHOCYTES # (AUTO) 3.8 10^3/uL (1.0-4.0); LYMPHOCYTES % (AUTO) 51 % (12-44); MEAN CORPUSCULAR HEMOGLOBIN 31 pg (25-34); MEAN CORPUSCULAR HGB CONC 35 g/dL (32-36); MEAN CORPUSCULAR VOLUME 88 fL (80-99); MEAN PLATELET VOLUME 8.9 fL (9.0-12.2); MONOCYTES # (AUTO) 0.7 10^3/uL (0.0-1.0); MONOCYTES % (AUTO) 9 % (0-12); NEUTROPHILS # (AUTO) 2.9 10^3/uL (1.8-7.8); NEUTROPHILS % (AUTO) 38 % (42-75); PLATELET COUNT 286 10^3/uL (130-400); WHITE BLOOD COUNT 7.5 10^3/uL (4.3-11.0)
[2023-05-03] MEDS ORDERED: NS IV 1000 ML 1,000 ML IV ONE (09:00)
--- NOTE | 2023-05-03 09:07 | ED Chest Pain ---
General Chief Complaint: Back Problems Stated Complaint: CARDIAC Nursing Triage Note: ASSISTED PT OUT OF CAR. STATES SHE WOKE UP 2 HRS AGO AND FELT WEIRD. COMPLAINS OF LEFT SIDED SHOULDER PAIN THAT RADIATES INTO HER BACK, DIZZINESS, AND SOA. PT ANXIOUS ET CRYING. Source: patient Exam Limitations: no limitations History of Present Illness Date Seen by Provider: May 03, 2023 Time Seen by Provider: 08:45 Initial Comments Here with report of left shoulder pain and mid back pain that is associated with weakness, nausea and feeling faint/dizzy. She has never had pain like this before. Does have history of diabetes that is controlled with diet but otherwise denies significant medical problems. Does have family history of cardiac disease. She does vape. Pain has persisted for the last 2 hours and worsened. She does feel short of breath. Denies fever, chills, sore throat, runny nose, cough, vomiting or diarrhea. Timing/Duration: 1-3 hours, getting worse Severity/Quality: moderate Location: shoulder (Left), back (Central) Radiation: arms (Left) Prior CP/Workup: no prior cardiac workup Modifying Factors: worse with movement ASA po ANESTHESIOLOGISTS' ASSISTANT: No NTG SL ANESTHESIOLOGISTS' ASSISTANT: No Associated Symptoms: back pain, dizziness, shortness of breath, weakness Allergies and Home Medications Allergies Coded Allergies: latex (Verified Allergy, Unknown, 05/07/06) Patient Home Medication List Home Medication List Reviewed: Yes Cetirizine HCl (Zyrtec) 10 Mg Capsule, 10 MG PO NEEDED, (Reported) Entered as Reported by: JENNIFER MENDES on 10/02/15 0827 Colesevelam HCl (Welchol) 625 Mg Tablet, 625 MG PO TID, (Reported) Entered as Reported by: ANALIA ANTON on 01/13/192201 Fluticasone Propionate (Flonase Allergy Relief) 9.9 Ml [place].susp, 1 SPRAY NS DAILY, (Reported) Entered as Reported by: ANALIA ANTON on 01/13/192201 Multivitamin (Multivitamin) 1 Each Tablet, 1 EACH PO DAILY, (Reported) Entered as Reported by: LINA SNYDER on 05/09/21 1219 Pantoprazole Sodium (Protonix) 40 Mg Tablet.dr, 40 MG PO DAILY Prescribed by: MARTY ZENG on 05/16/21 1234 Vitamin D (Vitamin D3) 10 Mcg Tablet, 400 MCG PO DAILY, (Reported) Entered as Reported by: LINA SNYDER on 05/09/21 1219 Review of Systems Review of Systems Constitutional: see HPI; No chills, No fever; weakness EENTM: No Symptoms Reported Respiratory: See HPI Cardiovascular: See HPI; Denies Edema; Palpitations Gastrointestinal: Nausea; Denies Vomiting Genitourinary: No Symptoms Reported Musculoskeletal: back pain, muscle pain Skin: No change in color, No lesions Psychiatric/Neurological: See HPI Past Uecipwn-Pjlnnb-Awarpr Hx Patient Social History Tobacco Use?: No Use of E-Cig and/or Vaping dev: Yes E-Cig or Vaping type used: Nicotine Immunizations Up To Date Tetanus Booster (TDap): Unknown Seasonal Allergies Seasonal Allergies: Yes Past Medical History Surgeries: Yes ( LEFT KNEE SCOPE, C/S X2 D/CXSEVERAL,CYST REMOVED FROM HEAD) Section, Gallbladder, Hysterectomy, Orthopedic, Tubal Ligation Respiratory: No Currently Using CPAP: No Currently Using BIPAP: No Cardiac: No Neurological: No Reproductive Disorders: Yes (FIBROID TUMORS IN UTERUS) 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 oz. 87.930361la; 30.00 BMI Method:Stated General Appearance: WD/WN, Moderate Distress HEENT: PERRL/EOMI, Pharynx Normal Neck: Non Tender, Supple Respiratory: Lungs Clear, Normal Breath Sounds Cardiovascular: Regular Rate, Rhythm, No Murmur Gastrointestinal: Non Tender, Soft Extremity: Normal Range of Motion, Non Tender Neurologic/Psychiatric: Alert, Oriented x3 Skin: Normal Color, Warm/Dry Progress/Results/Core Measures Results/Orders Lab Results Laboratory Tests Test 05/03/23 08:45 05/03/23 11:22 Range/Units White Blood Count 7.5 4.3-11.0 10^3/uL Red Blood Count 4.59 3.80-5.11 10^6/uL Hemoglobin 14.3 11.5-16.0 g/dL Hematocrit 40 35-52 % Mean Corpuscular Volume 88 80-99 fL Mean Corpuscular Hemoglobin 31 25-34 pg Mean Corpuscular Hemoglobin Concent 35 32-36 g/dL Red Cell Distribution Width 11.9 10.0-14.5 % Platelet Count 286 130-400 10^3/uL Mean Platelet Volume 8.9 L 9.0-12.2 fL Immature Granulocyte % (Auto) 0 % Neutrophils (%) (Auto) 38 L 42-75 % Lymphocytes (%) (Auto) 51 H 12-44 % Monocytes (%) (Auto) 9 0-12 % Eosinophils (%) (Auto) 2 0-10 % Basophils (%) (Auto) 0 0-10 % Neutrophils # (Auto) 2.9 1.8-7.8 10^3/uL Lymphocytes # (Auto) 3.8 1.0-4.0 10^3/uL Monocytes # (Auto) 0.7 0.0-1.0 10^3/uL Eosinophils # (Auto) 0.1 0.0-0.3 10^3/uL Basophils # (Auto) 0.0 0.0-0.1 10^3/uL Immature Granulocyte # (Auto) 0.0 0.0-0.1 10^3/uL Prothrombin Time 13.4 12.2-14.7 SEC INR Comment 1.0 0.8-1.4 Activated Partial Thromboplast Time 30 24-35 SEC D-Dimer 0.71 H 0.00-0.49 UG/ML Sodium Level 137 135-145 MMOL/L Potassium Level 4.0 3.6-5.0 MMOL/L Chloride Level 107 98-107 MMOL/L Carbon Dioxide Level 19 L 21-32 MMOL/L Anion Gap 11 5-14 MMOL/L Blood Urea Nitrogen 14 7-18 MG/DL Creatinine 0.78 0.60-1.30 MG/DL Estimat Glomerular Filtration Rate 98 BUN/Creatinine Ratio 18 Glucose Level 138 H 70-105 MG/DL Calcium Level 9.7 8.5-10.1 MG/DL Corrected Calcium 9.4 8.5-10.1 MG/DL Magnesium Level 1.9 1.6-2.4 MG/DL Total Bilirubin 0.4 0.1-1.0 MG/DL Aspartate Amino Transf (AST/SGOT) 25 5-34 U/L Alanine Aminotransferase (ALT/SGPT) 35 0-55 U/L Alkaline Phosphatase 67 40-136 U/L Myoglobin 37.0 10.0-92.0 NG/ML Troponin I < 0.028 < 0.028 <0.028 NG/ML Total Protein 7.8 6.4-8.2 GM/DL Albumin 4.4 3.2-4.5 GM/DL Lipase 29 8-78 U/L My Orders Orders - VARGAS JOSEPH MD Ekg Tracing (05/03/23 08:43) Cbc With Automated Diff (05/03/23 08:44) Magnesium (05/03/23 08:44) Chest 1 View, Ap/Pa Only (05/03/23 08:44) Ekg Tracing (05/03/23 08:44) Comprehensive Metabolic Panel (05/03/23 08:44) Myoglobin Serum (05/03/23 08:44) Protime With Inr (05/03/23 08:44) Partial Thromboplastin Time (05/03/23 08:44) O2 (05/03/23 08:44) Monitor-Rhythm Ecg Trace Only (05/03/23 08:44) Lipid Panel (05/04/23 06:00) Ed Iv/Invasive Line Start (05/03/23 08:44) Troponin I [place] (05/03/23 08:44) Fibrin Degradation Products (05/03/23 08:47) Lipase (05/03/23 08:47) Aspirin Chewable Tablet (Baby Aspirin Ch (05/03/23 08:58) Fentanyl Inj (Sublimaze Injection) (05/03/23 08:58) Ns Iv 1000 Ml (Sodium Chloride 0.9%) (05/03/23 09:00) Aspirin Chewable Tablet (Baby Aspirin Ch (05/03/23 09:07) Lidocaine 2% Viscous 15 Ml (Xylocaine Vi (05/03/23 10:00) Famotidine Tablet (Pepcid Tablet) (05/03/23 09:52) Antacid Suspension (Mylanta Suspension (05/03/23 10:00) Pantoprazole Injection (Protonix Injecti (05/03/23 10:00) Ct Angio Chest W (R/O Pe) (05/03/23 09:52) Iohexol Injection (Omnipaque 350 Mg/Ml 1 (05/03/23 10:00) Ns (Ivpb) (Sodium Chloride 0.9% Ivpb Bag (05/03/23 10:00) Troponin I [place] (05/03/23 10:41) Fentanyl Inj (Sublimaze Injection) (05/03/23 10:41) Ketorolac Injection (Toradol Injection) (05/03/23 10:41) Medications Given in ED Current Medications Medications Dose Ordered Sig/Micki Route Start Time Stop Time Status Last Admin Dose Admin Al Hydrox/Mg Hydrox/Simethicone 30 ml ONCE ONCE PO 05/03/23 10:00 05/03/23 10:01 DC 05/03/23 10:02 30 ML Iohexol 100 ml ONCE ONCE IV 05/03/23 10:00 05/03/23 10:01 DC 05/03/23 10:18 75 ML Lidocaine HCl 15 ml ONCE ONCE PO 05/03/23 10:00 05/03/23 10:01 DC 05/03/23 10:02 15 ML Pantoprazole 40 mg ONCE ONCE IV 05/03/23 10:00 05/03/23 10:01 DC 05/03/23 10:02 40 MG Sodium Chloride 100 ml ONCE ONCE IV 05/03/23 10:00 05/03/23 10:01 DC 05/03/23 10:18 70 ML Sodium Chloride 1,000 ml @ 0 mls/hr Q0M ONCE IV 05/03/23 09:00 05/03/23 09:01 DC 05/03/23 09:06 1,000 MLS/HR Vital Signs/I&O 05/03/23 08:44 Temp 36.3 Pulse 85 Resp 16 B/P (MAP) 125/83 (97) Pulse Ox 97 O2 Delivery Room Air Blood Pressure Mean: 97 Progress Progress Note : Progress Note Seen and evaluated. IV, labs including CBC, CMP, troponin, D-dimer ordered. EKG and chest x-ray ordered. ASA 324 mg p.o. Patient has ibuprofen intolerance but is able to take that. We will give the aspirin. Fentanyl 50 mcg IV. Normal saline 1 L bolus ordered. Monitor patient. Differential diagnosis includes cardiac event, pulmonary embolism, pancreatitis, reflux Chest x-ray reviewed by me and shows no obvious infiltrate or other abnormality. Pending radiology report. 1000: I have ordered CT angiogram of the chest as D- dimer is elevated slightly. Troponin is negative and lipase is negative. No significant abnormalities in CBC or CMP on my review. I did discuss this with the patient and she agrees. Pain is a little better currently but she had return of pain. We will go ahead and do GI cocktail, Pepcid 20 mg p.o. and Protonix 40 mg IV as she does have some reflux history and she is complaining of reflux symptoms currently after the aspirin. Monitor patient. 1252: I have reviewed CT angiogram that did not show any pulmonary emboli on my interpreta tion. Radiology report reviewed. She did get fentanyl 75 mcg IV for continued pain as well as Toradol 30 mg IV. This made her quite drowsy and so we have watched her for some time. She is overall doing much better now. No indication of cardiac event as troponin is negative x2 and there is no indication of pulmonary embolism and CT of the chest is negative. Lipase is negative so nonconcerning for pancreatitis. This may be musculoskeletal in etiology and this was discussed with the patient. She will continue with Tylenol and/or ibuprofen as needed and I will encourage her to use [id number]-dugzgpl omeprazole and famotidine as needed. She has a follow-up appointment with Dr. Joyner soon and she will keep that and I will send a copy of the chart to her. Discharged home with return precautions. Patient verbalized understanding instructions and agreement with plan. Initial ECG Impression Date: May 03, 2023 Initial ECG Impression Time: 08:45 Initial ECG Rate: 85 Initial ECG Rhythm: Normal Sinus Comment Sinus rhythm with normal but rightward axis. No evidence of ST elevation NE. Interpreted by me. Diagnostic Imaging Diagonstic Imaging: Xray Plain Films/CT/US/NM/MRI: chest Comments [facility] [place], [place] NAME: SERRATOTOBY D [facility] REC#: [id number] PT STATUS: REG ER : 1980 PHYSICIAN: VARGAS JOSEPH MD ADMIT DATE: 07/02/23/ER Draft Date of Exam:05/03/23 CHEST 1 VIEW, AP/PA ONLY EXAM: CHEST 1 VIEW, AP/PA ONLY INDICATION: Chest pain. COMPARISON: None. FINDINGS: Normal heart size and central pulmonary vascularity. Lungs are clear. No pleural effusion or pneumothorax. No acute osseous findings. IMPRESSION: No acute cardiopulmonary findings. Dictated on workstation # [id number] Dict: 05/03/23 0903 Trans: 05/03/23 0904 CVB [id number] Interpreted by: MILO TRAN MD Electronically signed by: Reviewed: Reviewed by Ne Diagonstic Imaging: CT Plain Films/CT/US/NM/MRI: chest Comments [facility] [place], [place] NAME: TOBY SERRATO Sheree [facility] REC#: [id number] PT STATUS: REG ER : 1980 PHYSICIAN: VARGAS JOSEPH MD ADMIT DATE: 05/03/23/ER Draft Date of Exam:05/03/23 CT ANGIO CHEST W (R/O PE) EXAM: CT ANGIO CHEST W (R/O PE) 3-D reconstructions, including MIPS, the angiographic images are created and reviewed by the radiologist. INDICATION: Shortness of air. Back and shoulder pain. COMPARISON: Chest radiograph 05/03/2023. FINDINGS: No pulmonary artery filling defects. Normal caliber thoracic aorta. Normal heart size. No pericardial effusion. No mediastinal, hilar or axillary lymphadenopathy. Lungs are clear. No pleural effusion or pneumothorax. Osseous structures are intact. Visualized upper abdominal contents are unremarkable. IMPRESSION: 1. No pulmonary emboli. 2. No acute CT findings in the chest. Dictated on workstation # [id number] Dict: 05/03/23 1024 Trans: 05/03/23 1031 CVB [id number] Interpreted by: MILO TRAN MD Electronically signed by: Departure Impression Primary Impression: Left shoulder pain Qualified Codes: M25.512 - Pain in left shoulder Additional Impressions: Chest pain Qualified Codes: R07.9 - Chest pain, unspecified Upper back pain Acid reflux disease Qualified Codes: K21.9 - Gastro-esophageal reflux disease without esophagitis Disposition: HOME, SELF-CARE Condition: Improved Departure-Patient Inst. Decision time for Depature: 12:55 Referrals: [facility] (PCP) Primary Care Physician ASHANTI SANDERS APRN (Family) Primary Care Physician Patient Instructions: Acid Reflux, Adult and Adolescent ED, Upper Back Pain ED, Shoulder Pain (DC), Chest Pain (DC) Add. Discharge Instructions: All discharge instructions reviewed with patient and/or family. Voiced understanding. You may take [id number]-eagurdt Tylenol/acetaminophen 1000 mg every 6-8 hours as needed for pain. You may take ibuprofen 400 mg every 8 hours as needed for pain. To help with possible acid reflux problems, you may take omeprazole [id number]-hrp-pxblzgm 20 mg daily. You may purchase this in a 2, 4 or 6-week pack. You may do best with a 6-week pack. You may also take famotidine 20 mg daily as needed for breakthrough reflux. This is the generic for Pepcid. Drink plenty of fluids and get plenty rest. Follow-up with Dr. Joyner as scheduled or earlier if needed. Return for worse pain, fever, vomiting, weakness, breathing problems or other concerns as needed. You may use topical agents such as IcyHot with lidocaine, Aspercreme with lidocaine or similar to area of concern to reduce pain as well per package directions. Copy Copies To 1: SISSY JOYNER MD,VARGAS Bentley MD May 03, 2023 09:07
[2023-05-03 09:09] LABS: ALBUMIN 4.4 GM/DL (3.2-4.5); CHLORIDE 107 MMOL/L (98-107); SODIUM 137 MMOL/L (135-145)
[2023-05-03 09:10] LABS: CALCIUM 9.7 MG/DL (8.5-10.1)
[2023-05-03 09:11] LABS: GLUCOSE 138 MG/DL (70-105); TOTAL PROTEIN 7.8 GM/DL (6.4-8.2)
[2023-05-03 09:12] LABS: CARBON DIOXIDE 19 MMOL/L (21-32)
[2023-05-03 09:13] LABS: BILIRUBIN,TOTAL 0.4 MG/DL (0.1-1.0)
[2023-05-03 09:15] LABS: ALKALINE PHOSPHATASE 67 U/L (40-136); CREATININE SERUM 0.78 MG/DL (0.60-1.30); GFR ESTIMATED 98
[2023-05-03 09:16] LABS: BUN/CREATININE RATIO 18
[2023-05-03 09:18] LABS: ALANINE AMINOTRANSFERASE 35 U/L (0-55); MAGNESIUM 1.9 MG/DL (1.6-2.4); PROTHROMBIN TIME PATIENT 13.4 SEC (12.2-14.7)
[2023-05-03 09:19] LABS: LIPASE 29 U/L (8-78)
[2023-05-03 09:21] LABS: FIBRIN DEGRADATION PRODUCTS 0.71 UG/ML (0.00-0.49)
[2023-05-03] MEDS ORDERED: FAMOTIDINE 20 MG (PEPCID) TABLET PO STA (09:52)
[2023-05-03] MEDS ORDERED: IOHEXOL 350 MG/ML 100 ML (OMNIPAQUE 350) VIAL IV ONE (10:00)
[2023-05-03] MEDS ORDERED: NS 100 ML (IVPB) BAG IV ONE (10:00)
[2023-05-03] MEDS ORDERED: ANTACID SUSP 30 ML UDC (MYLANTA) PO ONE (10:00)
[2023-05-03] MEDS ORDERED: PANTOPRAZOLE 40 MG (PROTONIX) VIAL IV ONE (10:00)
[2023-05-03] MEDS ORDERED: LIDOCAINE 2% VISCOUS 15 ML UDC PO ONE (10:00)
--- NOTE | 2023-05-03 10:32 | Diagnostic Imaging Report ---
EXAM: CT ANGIO CHEST W (R/O PE) 3-D reconstructions, including MIPS, the angiographic images are created and reviewed by the radiologist. INDICATION: Shortness of air. Back and shoulder pain. COMPARISON: Chest radiograph 05/03/2023. FINDINGS: No pulmonary artery filling defects. Normal caliber thoracic aorta. Normal heart size. No pericardial effusion. No mediastinal, hilar or axillary lymphadenopathy. Lungs are clear. No pleural effusion or pneumothorax. Osseous structures are intact. Visualized upper abdominal contents are unremarkable. IMPRESSION: 1. No pulmonary emboli. 2. No acute CT findings in the chest. Dictated by: Dictated on workstation # [id number]
[2023-05-03] MEDS ORDERED: KETOROLAC 30 MG/ML VIAL IVP STA (10:41)
[2023-05-03 13:19] VITALS: BP 117/83
== END 2023-05-03 13:19 | disposition home or self-care (01) ==
LOC: EDUNIT# 08:41 → ER 08:43
DX: M25.512 Pain in left shoulder (principal); R07.9 Chest pain, unspecified; M54.6 Pain in thoracic spine; K21.9 Gastro-esophageal reflux disease without esophagitis; R79.1 Abnormal coagulation profile; F17.290 Nicotine dependence, other tobacco product, uncomplicated; Z91.040 Latex allergy status
CPT/HCPCS: 36415; 71045; 71275; 80053; 83690; 83735; 83874; 84484; 85025; 85379; 85610; 85730; 93005; 93041

== ENCOUNTER → 2023-08-31 | Outpatient (CLI) | payer MEDICAID ==
--- NOTE | 2023-08-31 16:08 | Diagnostic Imaging Report ---
Indication: Routine screening. Comparison is made with prior mammograms from 08/20/2022 and 08/02/2020. 2-D and 3-D bilateral screening mammography was performed with CAD. Both breasts are heterogeneously dense, limiting the sensitivity of mammography. The parenchymal pattern is stable. No mass or malignant-appearing microcalcifications are identified. Axillae are unremarkable. IMPRESSION: BI-RADS Category 1 No mammographic features suspicious for malignancy are identified. ACR BI-RADS Category 1: Negative. Result letter will be mailed to the patient. Note: At least 10% of breast cancer is not imaged by mammography. Dictated by: Dictated on workstation # [id number]
== END ==
LOC: RAD 08:41
PROVIDERS: ATTEND Pediatrics
DX: Z12.31 Encounter for screening mammogram for malignant neoplasm of breast (principal)
CPT/HCPCS: 77063; 77067